=== PATIENT | male | born 1940 | race Caucasian/White ===

== ENCOUNTER 2020-07-06 05:41 | Outpatient (CLI) | payer MEDICARE ==
[~2020-07-06] VITALS: Ht 172.7 cm; Wt 100.0 kg
[2020-07-06] MEDS ORDERED: ATOR40TA70 PO (13:15)
[2020-07-06] MEDS ORDERED: LEVO125T6 PO (13:15)
[2020-07-06] MEDS ORDERED: DILT180C85 PO (13:15)
== END 2020-07-06 13:16 | disposition home or self-care (01) ==
LOC: PREOP 05:41
PROVIDERS: ATTEND Specialist
DX: Z01.818 Encounter for other preprocedural examination (principal)

== ENCOUNTER 2020-07-07 09:08 | Day surgery (SDC) | payer MEDICARE, OTHER ==
[~2020-07-07] VITALS: Ht 172.7 cm; Wt 100.0 kg
[~2020-07-07 09:08] MED LIST: ATOR40TA70 PO; DILT180C85 PO; LEVO125T6 PO
[2020-07-07] MEDS ORDERED: TIMOLOL MALEATE 0.5% 5 ML (TIMOPTIC) BTL OU PRN (09:15)
[2020-07-07] MEDS ORDERED: LIDOCAINE PF 1% 2 ML VIAL IR PRN (09:15)
[2020-07-07] MEDS ORDERED: POVIDONE (BETADINE) OPHTH SOLN 5% 30 ML OP ONE (09:15)
[2020-07-07] MEDS ORDERED: MOXIFLOXACIN OPHTH SOLN 5 MG/ML 0.3 ML SYRINGE OP ONE (09:15)
[2020-07-07] MEDS: TETRACAINE 0.5% OPHTH SOLN 4 ML BTL (SINGLE DOSE ONLY) OU PRN ×4 (09:29→09:47)
[2020-07-07] MEDS ORDERED: MIDAZOLAM 2 MG/2 ML (VERSED) VIAL ONE (09:32)
[2020-07-07] MEDS: CYCLOPENTOLATE 1% (CYCLOGYL) 2 ML DROPS OP SCH ×3 (09:37→09:47)
[2020-07-07] MEDS: PHENYLEPHRINE 10% OPHTH (NEO-SYN) 5 ML BTL OU SCH ×3 (09:37→09:47)
[2020-07-07 09:43] VITALS: BP 183/96
--- NOTE | 2020-07-07 10:24 | Ophthalmologist Pre-Op Note ---
Pre-Operative Progress Note H&P Reviewed The H&P was reviewed, patient examined and no changes noted. Date H&P Reviewed: Jul 07, 2020 Time H&P Reviewed: 09:51 Pre-Op Dx Cataract, Left Eye JOLIE SPAULDING MD Jul 07, 2020 10:24
--- NOTE | 2020-07-07 10:24 | Ophthalmology Operative Report ---
Cataract removal/placement IOL PREOPERATIVE DIAGNOSIS: Cataract Left Eye POSTOPERATIVE DIAGNOSIS: Cataract Left Eye PROCEDURE: Cataract removal and placement of posterior chamber implant, left eye SURGEON: Arnold Spaulding ANESTHESIA: Topical with sedation COMPLICATIONS: None ESTIMATED BLOOD LOSS: Minimal DESCRIPTION OF PROCEDURE: After proper informed consent was obtained, the patient, a 80 male, was taken to the Operating Room and the left eye was anesthetized with tetracaine. The left eye was then prepped and draped in the usual manner. A wire lid speculum was placed. A paracentesis was made at the left hand position. Preservative free lidocaine was injected into the anterior chamber followed by viscoelastic. A clear corneal incision was made in the temporal position. A capsulorrhexis was preformed and the central nuclear and cortical material were removed. The posterior capsule was polished and an Delfino 21.5 AU00T0 was placed into the capsular bag. The residual viscoelastic was aspirated and balanced saline solution was injected into the anterior chamber. Moxifloxacin was injected into the anterior chamber. The wound was checked and found to be water tight. The patient tolerated the procedure well without complications. ARNOLD SPAULDING MD Jul 07, 2020 10:24
[2020-07-07] MEDS ORDERED: acetaZOLAMIDE ER 500 MG CAP (DIAMOX SEQUELS) PO ONE (10:30)
[2020-07-07 10:39] VITALS: BP 164/86
--- NOTE | 2020-07-07 11:20 | Anesthesia-General Post-Op ---
MAC Patient Condition Mental Status/LOC: Same as Preop Cardiovascular: Satisfactory Nausea/Vomiting: Absent Respiratory: Satisfactory Pain: Controlled Complications: Absent Post Op Complications Complications None Follow Up Care/Instructions Patient Instructions None needed. Anesthesiology Discharge Order Discharge Order Patient is doing well, no complaints, stable vital signs, no apparent adverse anesthesia problems. No complications reported per nursing. CHRISTIN KHAN DOWELING MACHINE OPERATOR Jul 07, 2020 11:20
== END 2020-07-07 10:35 | disposition home or self-care (01) ==
LOC: SDC 09:08
PROVIDERS: ATTEND Specialist
DX: H25.12 Age-related nuclear cataract, left eye (principal); I10 Essential (primary) hypertension; E78.00 Pure hypercholesterolemia, unspecified; E78.5 Hyperlipidemia, unspecified; J44.9 Chronic obstructive pulmonary disease, unspecified; G47.33 Obstructive sleep apnea (adult) (pediatric); Z87.891 Personal history of nicotine dependence; Z88.0 Allergy status to penicillin; Z79.890 Hormone replacement therapy; Z79.899 Other long term (current) drug therapy
CPT/HCPCS: 66984; V2632

== ENCOUNTER 2020-08-01 05:35 | Outpatient (RCR) | payer MEDICARE, OTHER | END 2020-08-01 10:19 | disposition home or self-care (01) | LOC: PREOP 05:35 | PROVIDERS: ATTEND Specialist | DX: Z01.812 Encounter for preprocedural laboratory examination (principal); Z20.828 Contact with and (suspected) exposure to other viral communicable diseases | CPT/HCPCS: 87635 ==

== ENCOUNTER 2020-08-04 06:35 | Day surgery (SDC) | payer MEDICARE, OTHER ==
[~2020-08-04] VITALS: Ht 172.7 cm; Wt 99.9 kg
[2020-08-04 06:05] VITALS: BP 175/102
[2020-08-04] MEDS ORDERED: MIDAZOLAM 2 MG/2 ML (VERSED) VIAL ONE (06:56)
[2020-08-04] MEDS ORDERED: POVIDONE (BETADINE) OPHTH SOLN 5% 30 ML OP ONE (07:00)
[2020-08-04] MEDS ORDERED: TIMOLOL MALEATE 0.5% 5 ML (TIMOPTIC) BTL OU PRN (07:00)
[2020-08-04] MEDS ORDERED: LIDOCAINE PF 1% 2 ML VIAL IR PRN (07:00)
[2020-08-04] MEDS ORDERED: MOXIFLOXACIN OPHTH SOLN 5 MG/ML 0.3 ML SYRINGE OP ONE (07:00)
[2020-08-04] MEDS: TETRACAINE 0.5% OPHTH SOLN 4 ML BTL (SINGLE DOSE ONLY) OU PRN ×4 (07:03→07:33)
[2020-08-04] MEDS: TROPICAMIDE 1% OPH SOLN (MYDRIACYL) 15 ML BTL OP SCH ×3 (07:14→07:33)
[2020-08-04] MEDS: PHENYLEPHRINE 10% OPHTH (NEO-SYN) 5 ML BTL OU SCH ×3 (07:14→07:33)
--- NOTE | 2020-08-04 07:48 | Ophthalmologist Pre-Op Note ---
Pre-Operative Progress Note H&P Reviewed The H&P was reviewed, patient examined and no changes noted. Date H&P Reviewed: Aug 04, 2020 Time H&P Reviewed: 07:48 Pre-Op Dx Cataract, Right Eye JOLIE SPAULDING MD Aug 04, 2020 07:48
[2020-08-04] MEDS ORDERED: acetaZOLAMIDE ER 500 MG CAP (DIAMOX SEQUELS) PO ONE (08:00)
--- NOTE | 2020-08-04 08:14 | Ophthalmology Operative Report ---
Cataract removal/placement IOL PREOPERATIVE DIAGNOSIS: Cataract Right Eye POSTOPERATIVE DIAGNOSIS: Cataract Right Eye PROCEDURE: Cataract removal and placement of posterior chamber implant, right eye SURGEON: Arnold Spaulding ANESTHESIA: Topical with sedation COMPLICATIONS: None ESTIMATED BLOOD LOSS: Minimal DESCRIPTION OF PROCEDURE: After proper informed consent was obtained, the patient, a 80 male, was taken to the Operating Room and the right eye was anesthetized with tetracaine. The right eye was then prepped and draped in the usual manner. A wire lid speculum was placed. A paracentesis was made at the left hand position. Preservative free lidocaine was injected into the anterior chamber followed by viscoelastic. A clear corneal incision was made in the temporal position. A capsulorrhexis was preformed and the central nuclear and cortical material were removed. The posterior capsule was polished and Delfino 21.5 AU00T0 IOL was placed into the capsular bag. The residual viscoelastic was aspirated and balanced saline solution was injected into the anterior chamber. Moxifloxacin was injected into the anterior chamber. The wound was checked and found to be water tight. The patient tolerated the procedure well without complications. ARNOLD SPAULDING MD Aug 04, 2020 08:14
[2020-08-04 08:20] VITALS: BP 158/78
--- NOTE | 2020-08-04 09:10 | Anesthesia-General Post-Op ---
MAC Patient Condition Mental Status/LOC: Same as Preop Cardiovascular: Satisfactory Nausea/Vomiting: Absent Respiratory: Satisfactory Pain: Controlled Complications: Absent Post Op Complications Complications None Follow Up Care/Instructions Patient Instructions None needed. Anesthesiology Discharge Order Discharge Order Patient is doing well, no complaints, stable vital signs, no apparent adverse anesthesia problems. No complications reported per nursing. OLE MURRAY CRNA Aug 04, 2020 09:10
== END 2020-08-04 08:20 | disposition home or self-care (01) ==
LOC: SDC 06:35
PROVIDERS: ATTEND Specialist
DX: H25.11 Age-related nuclear cataract, right eye (principal); E78.00 Pure hypercholesterolemia, unspecified; Z79.899 Other long term (current) drug therapy; Z88.0 Allergy status to penicillin; Z87.891 Personal history of nicotine dependence
CPT/HCPCS: 66984; V2632

== ENCOUNTER 2021-10-05 20:43 | Inpatient (IN) | payer MEDICARE, OTHER ==
[~2021-10-05] VITALS: Ht 172 cm; Wt 93.5 kg
[2021-10-05] MEDS ORDERED: LACTATED RINGERS 1,000 ML IV ONE (22:09)
[2021-10-05] MEDS ORDERED: CEFEPIME INJECTION 1,000 MG in NS (IVPB) 50 ML IV SCH (22:15)
[2021-10-05] MEDS ORDERED: polyethylene glycoL POWDER 17 GM (MIRALAX) PACK PO PRN (22:15)
[2021-10-05] MEDS ORDERED: ONDANSETRON 4 MG (ZOFRAN) ORAL DISSOLVE TAB PO PRN (22:15)
[2021-10-05] MEDS ORDERED: ANTACID SUSP 30 ML UDC (MYLANTA) PO PRN (22:15)
[2021-10-05] MEDS ORDERED: PHARMACY TO DOSE IV ONE (22:15)
[2021-10-05] MEDS ORDERED: ONDANSETRON 4 MG/2 ML (SDV) Z0FRAN IV PRN (22:15)
[2021-10-05] MEDS ORDERED: ACETAMINOPHEN 325 MG TABLET PO PRN (22:15)
[2021-10-05] MEDS ORDERED: MELATONIN 3 MG TABLET PO PRN (22:15)
[2021-10-05] MEDS: LACTATED RINGERS 1,000 ML IV SCH (22:21)
[2021-10-05] MEDS ORDERED: VANCOMYCIN INJECTION 1,500 MG in NS IV 500 ML 500 ML IV ONE (22:30)
[2021-10-05] MEDS ORDERED: VANCOMYCIN 750 MG/NS 250 ML IVPB IV ONE ×2 (23:00)
[2021-10-05] MEDS: ENOXAPARIN 40 MG/0.4 ML (LOVENOX) SYR SC SCH (23:16)
[2021-10-05 23:36] LABS: POTASSIUM 4.5 MMOL/L (3.6-5.0)
[2021-10-05 23:37] LABS: CALCIUM 8.1 MG/DL (8.5-10.1)
[2021-10-05 23:41] LABS: PHOSPHORUS 4.8 MG/DL (2.3-4.7)
[2021-10-05 23:42] LABS: CREATININE SERUM 2.11 MG/DL (0.60-1.30)
[2021-10-05 23:44] LABS: MAGNESIUM 1.8 MG/DL (1.6-2.4)
[2021-10-05] MEDS ORDERED: NS IV 1000 ML 1,000 ML IV SCH (23:45)
--- NOTE | 2021-10-06 00:09 | Tele-ICU Progress Note ---
Progress Note Tele ICU Note eICU 81 yo man transferred from outside hospital for admission to hospitalist service with diagnosis of sepsis per nursing-when seen in their ED O2 sat was 80% by RA and hx shortness of breath 2 days. By report, pt was cultured at outside hospital, received 2 liters NS and was started on cefepime and vancomycin for presumed pneumonia. COVID rapid was negative and COVID PCR is currently pending. WBCs were elevated at 19,190 Lactic acid was reported at 81 and myoglobin, CPK were +. There was a report of possible fall- unclear if there was a seizure as the HCO3 on admit was 12. There is no CXR report included in the documentation. HX of COPD on inhalers and Prednisone 5 mg daily per the records he has not ta rickey for a few days. hypothyroidism and HTN Pt is observed in bed with O2 vapotherm 65% FiO2, no respiratory distress. VS T 37.3 HR 101 sinus RR 24 sats 96% BP 127/63 I have elected to order stat labs for pt to include CBC, BMP, Trop, BNP, Lactic , Procal, DDIMER, CRP, ESR, and repeat BCs , UA/reflex culture, CK, Myoglobin. Service is continuing vanco, cefepime. DVT prophylaxis: Lovenox . He is on a diet per service. Will monitor, discussed with nursing. Addendum- LA was returned at 4.38 Na 134 K 4.5 Cl 104 Bicarb 13 BUN 47 Creat 2.11 Mg 1.8 Phos 4.8 trop -.128 and Procal markedly elevated at 74.19 As there is no CXR report- will check CXR now- give additional 1 liter NS bolus- add ketones, cortisol level, to labs, add Solucortef, Add GIB Prophylaxis with protonix. Focused Exam Lactate Level 10/05/21 22:35: Lactic Acid Level 4.38*H Height, Weight, BMI Height: '" Weight: lbs. oz. kg; 31.26 BMI Method: Lactic Acid Level Laboratory Tests Test 10/05/21 22:35 Lactic Acid Level 4.38 MMOL/L (0.50-2.00) *H GERDA ROACH DO Oct 06, 2021 00:09
[2021-10-06] MEDS ORDERED: MAGNESIUM 1 GM/100 ML IVPB 100 ML IV ONE (00:30)
[2021-10-06 00:51] LABS: BASOPHILS # (AUTO) 0.1 10^3/uL (0.0-0.1); BASOPHILS % (AUTO) 0 % (0-10); EOSINOPHILS # (AUTO) 0.1 10^3/uL (0.0-0.3); EOSINOPHILS % (AUTO) 0 % (0-10); HEMATOCRIT 29 % (40-54); HEMOGLOBIN 9.1 g/dL (13.3-17.7); LYMPHOCYTES # (AUTO) 0.3 10^3/uL (1.0-4.0); LYMPHOCYTES % (AUTO) 2 % (12-44); MEAN CORPUSCULAR HEMOGLOBIN 28 pg (25-34); MEAN CORPUSCULAR HGB CONC 31 g/dL (32-36); MEAN CORPUSCULAR VOLUME 90 fL (80-99); MEAN PLATELET VOLUME 10.8 fL (9.0-12.2); MONOCYTES # (AUTO) 0.2 10^3/uL (0.0-1.0); MONOCYTES % (AUTO) 1 % (0-12); NEUTROPHILS # (AUTO) 15.6 10^3/uL (1.8-7.8); NEUTROPHILS % (AUTO) 95 % (42-75); PLATELET COUNT 273 10^3/uL (130-400); WHITE BLOOD COUNT 16.4 10^3/uL (4.3-11.0)
[2021-10-06] MEDS: PANTOPRAZOLE 40 MG (PROTONIX) VIAL IV SCH ×2 (01:09→20:15)
[2021-10-06] MEDS: CEFEPIME INJECTION 1,000 MG in NS (IVPB) 50 ML IV SCH ×4 (01:10→18:05)
[2021-10-06] MEDS: HYDROCORTISONE 100 MG/2 ML (Solu-CORTEF) VIAL IV SCH ×3 (01:10→20:15)
[2021-10-06 01:18] VITALS: BP 123/63
[2021-10-06] MEDS ORDERED: RT-ALBUTEROL/IPRATROPIUM 3 ML (DUONEB) VIAL INH PRN (01:30)
[2021-10-06 01:51] LABS: BAND NEUTROPHILS 31 %; LYMPHOCYTES % (MANUAL) 4 %; METAMYELOCYTES % 3 %; MONOCYTES % (MANUAL) 1 %; NEUTROPHILS % (MANUAL) 61 %; POIKILOCYTOSIS SLIGHT
[2021-10-06 01:52] LABS: ANISOCYTOSIS SLIGHT; SPHEROCYTES SLIGHT
[2021-10-06] MEDS: RT-ALBUTEROL/IPRATROPIUM 3 ML (DUONEB) VIAL INH SCH ×6 (02:05→21:17)
[2021-10-06 05:11] LABS: ALBUMIN 2.6 GM/DL (3.2-4.5); POTASSIUM 4.1 MMOL/L (3.6-5.0)
[2021-10-06 05:12] LABS: CALCIUM 7.7 MG/DL (8.5-10.1)
[2021-10-06 05:14] LABS: TOTAL PROTEIN 5.1 GM/DL (6.4-8.2)
[2021-10-06 05:15] LABS: BILIRUBIN,TOTAL 0.7 MG/DL (0.1-1.0)
[2021-10-06 05:17] LABS: CREATININE SERUM 1.92 MG/DL (0.60-1.30); PHOSPHORUS 5.2 MG/DL (2.3-4.7)
[2021-10-06 05:20] LABS: MAGNESIUM 2.1 MG/DL (1.6-2.4)
[2021-10-06] MEDS: KCL 20 MEQ TAB (K-DUR) PO SCH (05:20)
[2021-10-06] MEDS: MAGNESIUM 1 GM/100 ML IVPB 100 ML IV SCH (05:20)
[2021-10-06] MEDS: POTASSIUM CL 10MEQ/50ML IVPB 50 ML IV SCH (05:20)
[2021-10-06] MEDS: inSUlin ASPART (NovoLOG) 1 UNIT/0.01 ML (CHARGE PER UNIT) SC SCH ×4 (05:20→20:19)
--- NOTE | 2021-10-06 05:35 | Diagnostic Imaging Report ---
HISTORY: Hypoxia TECHNIQUE: Frontal view of the chest COMPARISON: 10/05/2021 FINDINGS: There are extensive airspace opacities throughout the right lung. Mild airspace opacity is seen in the left lung base. There is no large effusion or pneumothorax. The cardiac silhouette is normal in size. There is aortic atherosclerosis. IMPRESSION: 1. Extensive airspace opacities throughout the right lung and mild opacities in the left lung base, concerning for infection. Overall aeration appears similar to the prior study. Dictated by: Dictated on workstation # [id number]
[2021-10-06 05:42] LABS: BASOPHILS # (AUTO) 0.1 10^3/uL (0.0-0.1); BASOPHILS % (AUTO) 1 % (0-10); EOSINOPHILS # (AUTO) 0.1 10^3/uL (0.0-0.3); EOSINOPHILS % (AUTO) 0 % (0-10); HEMATOCRIT 27 % (40-54); HEMOGLOBIN 8.5 g/dL (13.3-17.7); LYMPHOCYTES # (AUTO) 0.3 10^3/uL (1.0-4.0); LYMPHOCYTES % (AUTO) 2 % (12-44); MEAN CORPUSCULAR HEMOGLOBIN 29 pg (25-34); MEAN CORPUSCULAR HGB CONC 31 g/dL (32-36); MEAN CORPUSCULAR VOLUME 91 fL (80-99); MEAN PLATELET VOLUME 10.9 fL (9.0-12.2); MONOCYTES # (AUTO) 0.3 10^3/uL (0.0-1.0); MONOCYTES % (AUTO) 2 % (0-12); NEUTROPHILS # (AUTO) 15.7 10^3/uL (1.8-7.8); NEUTROPHILS % (AUTO) 94 % (42-75); PLATELET COUNT 257 10^3/uL (130-400); WHITE BLOOD COUNT 16.7 10^3/uL (4.3-11.0)
[2021-10-06] MEDS: LACTATED RINGERS 1,000 ML IV SCH ×4 (06:40→18:05)
[2021-10-06 06:49] LABS: BILIRUBIN,URINE NEGATIVE (NEGATIVE); CLARITY,URINE CLEAR; COLOR,URINE YELLOW; GLUCOSE, URINE (UA) NEGATIVE (NEGATIVE); KETONES,URINE NEGATIVE (NEGATIVE); LEUKOCYTE ESTERASE ,URINE NEGATIVE (NEGATIVE); NITRITE,URINE NEGATIVE (NEGATIVE); PROTEIN,URINE TRACE (NEGATIVE)
[2021-10-06 06:59] LABS: BACTERIA,URINE FEW /HPF; GRANULAR CASTS,URINE 0-2 /LPF; WBC,URINE 0-2 /HPF
[2021-10-06] MEDS ORDERED: ASPI-999 PO (08:05)
[2021-10-06] MEDS: SENNOSIDES 8.6 MG (SENOKOT) TAB PO SCH ×2 (08:13→20:15)
[2021-10-06] MEDS: DOCUSATE SODIUM 100 MG (COLACE) CAP PO SCH ×2 (08:13→20:15)
--- NOTE | 2021-10-06 10:41 | Diagnostic Imaging Report ---
EXAM: Portable erect AP chest at 9:47 AM INDICATION: Respiratory distress FINDINGS: The heart is stable in size when compared to the prior exam performed earlier today at 1:09 AM. The extensive airspace opacity throughout the right lung seen previously is again evident and not significantly changed. A small amount of atelectasis / infiltrate and fluid has developed in the left lung base however. The mediastinum is not widened. The osseous structures are intact. IMPRESSION: The appearance of the chest has worsened slightly as the small amount of atelectasis/infiltrate and fluid has developed in the left lung base. There continues to be diffuse involvement of the right lung by pneumonia/atelectasis. Dictated by: Dictated on workstation # [id number]
[2021-10-06] MEDS: NOREPINEPHRINE 8 MG/250 ML 250 ML IV SCH (11:09)
[2021-10-06 12:09] LABS: CHOLESTEROL 91 MG/DL (< 200); HDL CHOLESTEROL 39 MG/DL (40-60); TRIGLYCERIDES 93 MG/DL (<150); VLDL CHOLESTEROL 19 MG/DL (5-40)
--- NOTE | 2021-10-06 12:17 | Tele-ICU Progress Note ---
Subjective Date Seen by a Provider: Oct 06, 2021 Time Seen by a Provider: 12:17 Subjective/Events-last exam He is admitted with septic shock actually he is a transferred from an outside hospital. He was given several liters of IV fluid bolus and he is lactic acid is coming down. He is still tachycardic but his oxygen requirements are decreasing. He is currently on a nasal cannula. However he is in no acute distress. Sepsis Event Evaluation Height, Weight, BMI Height: '" Weight: lbs. oz. kg; 31.26 BMI Method: Focused Exam Lactate Level 10/05/21 22:35: Lactic Acid Level 4.38*H 10/06/21 02:10: Lactic Acid Level 2.58*H 10/06/21 04:45: Lactic Acid Level 2.03*H Exam Exam Patient acknowledged, consented, and participated in this virtual visit which was conducted using real time audio/video Vital Signs Date Time Temp Pulse Resp B/P (MAP) Pulse Ox O2 Delivery O2 Flow Rate FiO2 10/06/21 11:09 126 84/56 10/06/21 11:00 118 22 82/42 97 Vapotherm 30.00 75.00 10/06/21 10:30 Vapotherm 25.00 60 10/06/21 10:00 111 27 57/41 100 Vapotherm 30.00 75.00 10/06/21 09:00 126 21 89/30 95 Vapotherm 30.00 75.00 10/06/21 08:48 Vapotherm 30.00 75 10/06/21 08:00 37.1 10/06/21 08:00 114 25 137/113 95 Vapotherm 30.00 75.00 10/06/21 07:59 Vapotherm 30.00 75.00 10/06/21 07:29 Vapotherm 30.00 75 10/06/21 07:00 108 10/06/21 07:00 108 22 121/39 98 Vapotherm 32.00 65.00 10/06/21 06:00 102 21 110/57 96 Vapotherm 32.00 65.00 10/06/21 05:00 97 21 108/61 97 Vapotherm 32.00 65.00 10/06/21 04:00 98 23 102/55 96 Vapotherm 32.00 65.00 10/06/21 04:00 Vapotherm 30.00 60 10/06/21 03:00 93 20 115/68 96 Vapotherm 32.00 65.00 10/06/21 02:05 97 Vapotherm 32.00 65 10/06/21 02:00 98 22 106/58 96 Vapotherm 32.00 65.00 10/06/21 01:18 106 80 21 10/06/21 01:00 101 23 115/64 97 Vapotherm 32.00 65.00 10/06/21 01:00 101 10/06/21 00:00 100 23 94/82 96 Vapotherm 32.00 65.00 10/05/21 23:30 104 26 109/54 96 Vapotherm 32.00 65.00 10/05/21 23:29 Vapotherm 32.00 65 10/05/21 23:00 101 26 117/63 96 Vapotherm 32.00 65.00 10/05/21 22:57 94 Vapotherm 32.00 65 10/05/21 22:45 101 22 117/55 98 Vapotherm 32.00 65.00 10/05/21 22:30 108 29 113/63 97 Vapotherm 32.00 65.00 10/05/21 22:10 37.3 106 30 127/63 95 Vapotherm 32.00 65.00 10/05/21 22:08 107 I & O 10/06/21 07:00 Intake Total 300 ml Output Total 600 ml Balance -300 ml Height & Weight Height: '" Weight: lbs. oz. kg; 31.26 BMI Method: General Appearance: Mild Distress Other comments PE PER RN Results Lab Laboratory Tests 10/05/21 22:35 10/05/21 23:50 10/06/21 04:45 Assessment/Plan Assessment/Plan 1. Right-sided extensive pneumonia community-acquired. 2. Septic shock slowly improving 3. Anemia probably chronic 4. Acute kidney injury secondary to septic shock Recommendations 1. Continue IV fluids and IV antibiotics. 2. Continue monitoring lactic acid. 3. Oxygenation with nasal cannula 4. We will repeat another x-ray tomorrow. 5. DVT prophylaxis and ulcer prophylaxis. Critical Care: Critically Ill Patient Time spent with patient (mins): 20 ROBERTA ANGELA MD Oct 06, 2021 12:17
[2021-10-06] MEDS ORDERED: HOLD METFORMIN - RECEIVED CONTRAST 20 ML VIAL IV SCH (13:15)
[2021-10-06] MEDS ORDERED: IOHEXOL 350 MG/ML 100 ML (OMNIPAQUE 350) VIAL IV ONE (13:15)
[2021-10-06] MEDS ORDERED: NS 100 ML (IVPB) BAG IV ONE (13:15)
--- NOTE | 2021-10-06 14:20 | Diagnostic Imaging Report ---
PROCEDURE: CT angiography of the chest with contrast. TECHNIQUE: Multiple contiguous axial images were obtained through the chest after uneventful bolus administration of intravenous contrast. 3D reconstructed CTA MIP acquisitions were also performed. Auto Exposure Controls were utilized during the CT exam to meet ALARA standards for radiation dose reduction. INDICATION: Respiratory failure. Elevated D-dimer. Septic shock. COMPARISON: Chest radiograph performed earlier this same date. FINDINGS: This helical CT pulmonary angiogram is diagnostic to the subsegmental level branches of the pulmonary artery and demonstrates no pulmonary emboli. The heart and great vessels are unremarkable. There is a small pericardial effusion. There is calcified aortic and coronary atherosclerotic plaque without aneurysm. There is no axillary, mediastinal, or hilar adenopathy. Small right and trace left pleural effusion are seen. Consolidative opacities are seen throughout the right middle and lower lobes and within the dependent portion of the right upper lobe. A small amount of opacities are seen in the left lung base. Centrilobular emphysema is present. No central endobronchial obstructing lesions. No evidence of pneumothorax. Osseous structures appear normal. There is calcification of the gallbladder wall. IMPRESSION: 1. No acute pulmonary embolus. 2. Consolidative opacities throughout the right middle and lower lobes with additional opacities in the dependent portion of the right upper lobe. These findings are concerning for pneumonia. Small right and trace left pleural effusions are present. 3. Porcelain gallbladder. Dictated by: Dictated on workstation # [id number]
--- NOTE | 2021-10-06 14:36 | History & Physical-Hospitalist ---
History of Present Illness HPI/Chief Complaint Bharat Webber is an 81 year old male with PMH HTN, HLD, hypothyroidism, obesity, who was transferred from [facility] with septic shock due to pneumonia. He reports having fevers and chills. He was short of breath and coughing. He denies chest pain. He denies abdominal pain. He denies nausea and vomiting. He has not had diarrhea. He denies dysuria. Source: patient Exam Limitations: no limitations Date Seen 10/06/21 Time Seen by a Provider: 10:50 Attending Physician Kiel Escobar MD PCP Molly Flores MD Referring Physician Date of Admission Oct 05, 2021 at 22:00 Home Medications & Allergies Home Medications Reviewed patient Home Medication Reconciliation performed by pharmacy medication reconciliations photonics engineering technician and/or nursing. Patients Allergies have been reviewed. Allergies Allergies Coded Allergies Penicillins (Unverified Allergy, Mild, RASH, 12/23/06) Past [id number] Hx Patient Social History Tobacco Use?: No Tobacco type used: Cigarettes Smoking Status: Former Smoker Use of E-Cig and/or Vaping dev: No Substance use?: No Alcohol Use?: No Current Status Primary Language: Afghan Sensory deficits: Hearing impairment Past Medical History High Cholesterol, Hypertension Hypothyroidsim Family Medical History No Pertinent Family Hx Review of Systems Constitutional: chills, fever, malaise, weakness EENTM: no symptoms reported Respiratory: cough, short of breath Cardiovascular: no symptoms reported Gastrointestinal: no symptoms reported Genitourinary: no symptoms reported Musculoskeletal: no symptoms reported Skin: no symptoms reported Psychiatric/Neurological: No Symptoms Reported Physical Exam Physical Exam Vital Signs Vital Signs - First Documented 10/05/21 10/05/21 10/05/21 22:08 22:10 22:57 Temp 37.3 Pulse 107 Resp 30 B/P (MAP) 127/63 Pulse Ox 95 O2 Delivery Vapotherm O2 Flow Rate 32.00 65.00 FiO2 65 Capillary Refill : Height, Weight, BMI Height: '" Weight: lbs. oz. kg; 31.26 BMI Method: General Appearance: Chronically ill, Mild Distress (uncomfortable, fatigued), Obese HEENT: PERRL/EOMI, Other (dry mucous membranes) Neck: Normal Inspection, Supple Respiratory: Decreased Breath Sounds, Wheezing, Other (wearing Vapotherm) Cardiovascular: No Murmur, Irregularly Irregular, Tachycardia Gastrointestinal: Normal Bowel Sounds, Non Tender, Soft Extremity: Normal Inspection, No Pedal Edema Neurologic/Psychiatric: Alert, No Motor/Sensory Deficits Skin: Normal Color, Warm/Dry Results Results/Procedures Labs Laboratory Tests 10/05/21 22:35 10/05/21 23:50 10/06/21 04:45 10/07/21 04:00 Patient resulted labs reviewed. Imaging: Reviewed Imaging Report Assessment/Plan Admission Diagnosis Septic shock Admission Status: Inpatient Order (span 2 midnights) Reason for Inpatient Admission: Pneumonia Assessment and Plan Septic shock Multifocal pneumonia Acute respiratory failure with hypoxia Lactic acidosis Acute kidney injury NSTEMI CXR with significant right consolidation, left basilar consolidation Requiring Vapotherm Lactic acid >8, now improved IV fluids Procalcitonin significant elevated Blood cultures from [facility] pending Vancomycin and Cefepime TeleICU consulted Troponin slightly elevated Cardiology consulted Requiring pressor support Surgery consulted Ddimer elevated CT Chest ordered HTN HLD Hypothryoidism DVT prophylaxis: Lovenox Critical Care Critically Ill Patient Diagnosis/Problems Diagnosis/Problems (1) Septic shock Status: Acute (2) Pneumonia Status: Acute (3) Acute on chronic respiratory failure with hypoxemia Status: Acute (4) Lactic acidosis Status: Acute (5) Acute kidney injury Status: Acute (6) NSTEMI (non-ST elevation myocardial infarction) Status: Acute (7) Primary hypertension Status: Chronic (8) Mixed hyperlipidemia Status: Chronic (9) Obesity Status: Chronic KIEL ESCOBAR MD Oct 06, 2021 14:36
--- NOTE | 2021-10-06 14:45 | Consultation-Cardiology ---
HPI-Cardiology Cardiology Consultation: Date of Consultation 10/06/2021 Date of Admission 10/06/2021 Attending Physician Lesly Mckinley MD Admitting Physician Molly Flores MD Consulting Physician SHERRI CHO JR, MD HPI: Time Seen by a Provider: 14:43 Chief Complaint: Reason for consultation: Persistent tachycardia. I had the pleasure of seeing Bharat in the intensive care unit at [facility] in [place], [place] this afternoon. He has no known history of cardiac disease. He has chronic dyspnea related to underlying chronic obstructive pulmonary disease. He also has cardiac risk factors of hypertension and hyperlipidemia. A few days ago he started having worsening dyspnea on exertion. He was also having a cough occasionally productive of some light sputum. His breathing became much worse yesterday and he went to [facility] for further evaluation. He was found to have pneumonia with superimposed sepsis and he was transferred to our hospital for further treatment. He still feels fairly short of breath but somewhat improved. He denies chest discomfort, paroxysmal nocturnal dyspnea, orthopnea, palpitations, lightheadedness, syncope, or lower extremity edema. Since being here in the hospital, he has had persistent sinus tachycardia. Because of this, a cardiology consultation was requested. Certain portions of this document may have been dictated utilizing voice recognition technology. Inherent to this technology, typographical and grammatical errors may exist. As much as I am diligent to identify and correct these mistakes, some errors may remain in the document. Review of Systems-Cardiology Review of Systems Other comments Review of 10 organ systems is as per the history of present illness, otherwise negative. [id number] Hx Patient Social History Smoking Status: Former Smoker Alcohol Use?: No Tobacco type used: Cigarettes Past Medical History PMH As described under Assessment. Family Medical History Family Medical History: The patient does not know of any family history of premature coronary artery disease in first-degree relatives. Allergies and Home Medications Allergies Coded Allergies: Penicillins (Unverified Allergy, Mild, RASH, 12/23/06) Patient Home Medication List Home Medication List Reviewed: Yes Aspirin (Aspirin) 81 Mg Tab.chew, 81 MG PO DAILY, (Reported) Entered as Reported by: JOSAFAT HUNTER on 10/06/21 0805 Last Action: Reviewed Atorvastatin Calcium (Atorvastatin Calcium) 40 Mg Tablet, 40 MG PO HS, (Reported) Entered as Reported by: AMMON KING on 07/06/201314 Last Action: Reviewed Diltiazem HCl (Diltiazem 24Hr ER) 180 Mg Cap.er.24h, 180 MG PO DAILY, (Reported) Entered as Reported by: AMMON KING on 07/06/201314 Last Action: Reviewed Levothyroxine Sodium (Levothyroxine Sodium) 125 Mcg Tablet, 125 MCG PO DAILY, (Reported) Entered as Reported by: AMMON KING on 07/06/201314 Last Action: Reviewed Exam Vital Signs Vital Signs Date Time Temp Pulse Resp B/P (MAP) Pulse Ox O2 Delivery O2 Flow Rate FiO2 10/06/21 14:38 Vapotherm 30.00 70 10/06/21 14:00 135 31 137/81 95 10/06/21 12:00 36.9 Physical Exam General: Alert. Mild respiratory distress on oxygen by Vapotherm. Well nourished and appears stated age. Eye: Extraocular movements are intact. Conjunctivae are clear. There are no xanthelasma. HENT: Normocephalic. Atraumatic. Carotid pulsations 2/2 without bruits. Neck: Jugular venous pressure does not appear elevated. No thyromegaly appreciated. Respiratory: Lungs have diffusely decreased breath sounds with scattered wheezes. Respirations are non-labored. Breath sounds are equal. Symmetrical chest wall expansion. Cardiovascular: Tachycardia. Regular rhythm. No murmur. No gallop. Point of maximal impulse is not appear displaced. Good pulses equal in all extremities. No edema. Gastrointestinal: Soft. Normal bowel sounds. Skin: Skin turgor is normal. There is no pallor. Musculoskeletal: No kyphosis or scoliosis appreciated. Neurologic: Alert and oriented to person, place, time. Cranial nerves 3-12 appear grossly intact. The patient has good motor tone strength in the upper and lower extremities bilaterally. Psychiatric: Cooperative. Appropriate mood & affect. Labs Laboratory Tests Test 10/05/21 22:35 10/05/21 23:50 10/05/21 23:55 10/06/21 02:10 Range/Units Sodium Level 134 L 135-145 MMOL/L Potassium Level 4.5 3.6-5.0 MMOL/L Chloride Level 104 98-107 MMOL/L Carbon Dioxide Level 13 L 21-32 MMOL/L Anion Gap 17 H 5-14 MMOL/L Blood Urea Nitrogen 47 H 7-18 MG/DL Creatinine 2.11 H 0.60-1.30 MG/DL Estimat Glomerular Filtration Rate 30 BUN/Creatinine Ratio 22 Glucose Level 75 70-105 MG/DL Lactic Acid Level 4.38 *H 2.58 *H 0.50-2.00 MMOL/L Calcium Level 8.1 L 8.5-10.1 MG/DL Phosphorus Level 4.8 H 2.3-4.7 MG/DL Magnesium Level 1.8 1.6-2.4 MG/DL Troponin I 0.126 H <0.028 NG/ML C-Reactive Protein High Sensitivity 36.58 H 0.00-0.50 MG/DL Procalcitonin 74.19 H <0.10 NG/ML SARS-CoV-2 RNA (RT-PCR) Not Detected Not Detecte White Blood Count 16.4 H 4.3-11.0 10^3/uL Red Blood Count 3.24 L 4.30-5.52 10^6/uL Hemoglobin 9.1 L 13.3-17.7 g/dL Hematocrit 29 L 40-54 % Mean Corpuscular Volume 90 80-99 fL Mean Corpuscular Hemoglobin 28 25-34 pg Mean Corpuscular Hemoglobin Concent 31 L 32-36 g/dL Red Cell Distribution Width 15.1 H 10.0-14.5 % Platelet Count 273 130-400 10^3/uL Mean Platelet Volume 10.8 9.0-12.2 fL Immature Granulocyte % (Auto) 1 % Neutrophils (%) (Auto) 95 H 42-75 % Lymphocytes (%) (Auto) 2 L 12-44 % Monocytes (%) (Auto) 1 0-12 % Eosinophils (%) (Auto) 0 0-10 % Basophils (%) (Auto) 0 0-10 % Neutrophils # (Auto) 15.6 H 1.8-7.8 10^3/uL Lymphocytes # (Auto) 0.3 L 1.0-4.0 10^3/uL Monocytes # (Auto) 0.2 0.0-1.0 10^3/uL Eosinophils # (Auto) 0.1 0.0-0.3 10^3/uL Basophils # (Auto) 0.1 0.0-0.1 10^3/uL Immature Granulocyte # (Auto) 0.2 H 0.0-0.1 10^3/uL Neutrophils % (Manual) 61 % Lymphocytes % (Manual) 4 % Monocytes % (Manual) 1 % Metamyelocytes % 3 % Band Neutrophils 31 % Poikilocytosis SLIGHT Anisocytosis SLIGHT Spherocytes SLIGHT Beta-Hydroxybutyrate (Chem panel) 0.41 H 0.00-0.27 MMOL/L Erythrocyte Sedimentation Rate 30 0-30 MM/HR D-Dimer 1.87 H 0.00-0.49 UG/ML B-Type Natriuretic Peptide 258.1 H <100.0 PG/ML Test 10/06/21 04:45 10/06/21 06:35 10/06/21 10:45 Range/Units White Blood Count 16.7 H 4.3-11.0 10^3/uL Red Blood Count 2.98 L 4.30-5.52 10^6/uL Hemoglobin 8.5 L 13.3-17.7 g/dL Hematocrit 27 L 40-54 % Mean Corpuscular Volume 91 80-99 fL Mean Corpuscular Hemoglobin 29 25-34 pg Mean Corpuscular Hemoglobin Concent 31 L 32-36 g/dL Red Cell Distribution Width 15.1 H 10.0-14.5 % Platelet Count 257 130-400 10^3/uL Mean Platelet Volume 10.9 9.0-12.2 fL Immature Granulocyte % (Auto) 2 % Neutrophils (%) (Auto) 94 H 42-75 % Lymphocytes (%) (Auto) 2 L 12-44 % Monocytes (%) (Auto) 2 0-12 % Eosinophils (%) (Auto) 0 0-10 % Basophils (%) (Auto) 1 0-10 % Neutrophils # (Auto) 15.7 H 1.8-7.8 10^3/uL Lymphocytes # (Auto) 0.3 L 1.0-4.0 10^3/uL Monocytes # (Auto) 0.3 0.0-1.0 10^3/uL Eosinophils # (Auto) 0.1 0.0-0.3 10^3/uL Basophils # (Auto) 0.1 0.0-0.1 10^3/uL Immature Granulocyte # (Auto) 0.3 H 0.0-0.1 10^3/uL Sodium Level 132 L 135-145 MMOL/L Potassium Level 4.1 3.6-5.0 MMOL/L Chloride Level 103 98-107 MMOL/L Carbon Dioxide Level 17 L 21-32 MMOL/L Anion Gap 12 5-14 MMOL/L Blood Urea Nitrogen 49 H 7-18 MG/DL Creatinine 1.92 H 0.60-1.30 MG/DL Estimat Glomerular Filtration Rate 34 BUN/Creatinine Ratio 26 Glucose Level 105 70-105 MG/DL Lactic Acid Level 2.03 *H 0.50-2.00 MMOL/L Calcium Level 7.7 L 8.5-10.1 MG/DL Corrected Calcium 8.8 8.5-10.1 MG/DL Phosphorus Level 5.2 H 2.3-4.7 MG/DL Magnesium Level 2.1 1.6-2.4 MG/DL Total Bilirubin 0.7 0.1-1.0 MG/DL Aspartate Amino Transf (AST/SGOT) 33 5-34 U/L Alanine Aminotransferase (ALT/SGPT) 29 0-55 U/L Alkaline Phosphatase 49 40-136 U/L Total Creatine Kinase 607 H 30-200 U/L Total Protein 5.1 L 6.4-8.2 GM/DL Albumin 2.6 L 3.2-4.5 GM/DL Triglycerides Level 93 <150 MG/DL Cholesterol Level 91 < 200 MG/DL LDL Cholesterol Direct 22 1-129 MG/DL VLDL Cholesterol 19 5-40 MG/DL HDL Cholesterol 39 L 40-60 MG/DL Urine Color YELLOW Urine Clarity CLEAR Urine pH 6.0 5-9 Urine Specific [place] 1.025 H 1.016-1.022 Urine Protein TRACE H NEGATIVE Urine Glucose (UA) NEGATIVE NEGATIVE Urine Ketones NEGATIVE NEGATIVE Urine Nitrite NEGATIVE NEGATIVE Urine Bilirubin NEGATIVE NEGATIVE Urine Urobilinogen 0.2 < = 1.0 MG/DL Urine Leukocyte Esterase NEGATIVE NEGATIVE Urine RBC (Auto) 2+ H NEGATIVE Urine RBC 2-5 H /HPF Urine WBC 0-2 /HPF Urine Squamous Epithelial Cells NONE /HPF Urine Crystals NONE /LPF Urine Bacteria FEW H /HPF Urine Casts PRESENT /LPF Urine Hyaline Casts 2-5 H /LPF Urine Granular Casts 0-2 H /LPF Urine Mucus SMALL H /LPF Urine Culture Indicated YES Glucometer 152 H 70-110 MG/DL ECG Impression ECG Comment Sinus tachycardia at 116 bpm with occasional premature ventricular complexes and nonspecific ST changes. Diagnosis/Problems Diagnosis/Problems (1) Sinus tachycardia Assessment & Plan: Most likely related to his pneumonia with sepsis. He has been placed back on his long-acting diltiazem which he takes for hypertension. I would not treat the tachycardia aggressively or he may develop hypotension. As it is, he has already on norepinephrine infusion due to septic shock. I will obtain an echocardiogram just to exclude any structural heart disease that could predispose to tachycardia (2) Acute on chronic respiratory failure with hypoxemia Assessment & Plan: He has chronic obstructive pulmonary disease and uses a nebulizer at home but is not on home oxygen. He now has superimposed pneumonia. The hospitalist and eICU are managing his pulmonary disease. (3) Primary hypertension Assessment & Plan: He did receive his diltiazem this morning but now has been placed on norepinephrine due to recurrent septic shock. If he remains on norepinephrine in the morning, we should hold his diltiazem. (4) Mixed hyperlipidemia Assessment & Plan: I have taken the liberty of ordering his home dose of atorvastatin. I also ordered a lipid panel for the morning. (5) Septic shock Assessment & Plan: Probably related to the pneumonia. He is receiving antibiotics. (6) Obesity Assessment & Plan: He needs to work on weight loss. SHERRI CHO JR, MD Oct 06, 2021 14:45
--- NOTE | 2021-10-06 15:11 | Consultation - Surgery ---
History of Present Illness History of Present Illness Patient Consulted On(princess/time) 10/06/21 15:06 Time Seen by Provider: 13:52 History of Present Illness Surgery asked to consult regarding hypotension, venous insufficiency with need for central line HPI per IM: Bharat Webber is an 81 year old male with PMH HTN, HLD, hypothyroidism, obesity, who was transferred from [facility] with septic shock due to pneumonia. He reports having fevers and chills. He was short of breath and coughing. He denies chest pain. He denies abdominal pain. He denies nausea and vomiting. He has not had diarrhea. He denies dysuria. Pt understood reason for central line and agreed to have it done. Allergies and Home Medications Allergies Coded Allergies: Penicillins (Unverified Allergy, Mild, RASH, 12/23/06) Patient Home Medication List Home Medication List Reviewed: Yes Aspirin (Aspirin) 81 Mg Tab.chew, 81 MG PO DAILY, (Reported) Entered as Reported by: JOSAFAT HUNTER on 10/06/21 0805 Last Action: Reviewed Atorvastatin Calcium (Atorvastatin Calcium) 40 Mg Tablet, 40 MG PO HS, (Reported) Entered as Reported by: AMMON KING on 07/06/201314 Last Action: Reviewed Diltiazem HCl (Diltiazem 24Hr ER) 180 Mg Cap.er.24h, 180 MG PO DAILY, (Reported) Entered as Reported by: AMMON KING on 07/06/201314 Last Action: Reviewed Levothyroxine Sodium (Levothyroxine Sodium) 125 Mcg Tablet, 125 MCG PO DAILY, (Reported) Entered as Reported by: AMMON KING on 07/06/201314 Last Action: Reviewed Past Kbzhbhm-Xtskhn-Pbljzk Hx Patient Social History Smoking Status: Former Smoker Alcohol Use?: No Respiratory History of Respiratory Disorde: Yes Cardiovascular History of Cardiac Disorders: Yes Cardiac Disorders: High Cholesterol, Hypertension Endocrine History of Endocrine Disorders: Yes Endocrine Disorders: Hypothyroidsim Family Medical History Significant Family History: No Pertinent Family Hx, Diabetes (denied in his parents) Review of Systems-General Constitutional: malaise, weakness EENTM: No mouth swelling, No epistaxis Respiratory: cough, dyspnea on exertion; No hemoptysis; short of breath Cardiovascular: chest pain, palpitations Gastrointestinal: No abdominal pain, No nausea, No vomiting Genitourinary: No dysuria, No frequency, No hematuria Physical Exam-General Problems Physical Exam Vital Signs Vital Signs - First Documented 10/05/21 10/05/21 10/05/21 22:08 22:10 22:57 Temp 37.3 Pulse 107 Resp 30 B/P (MAP) 127/63 Pulse Ox 95 O2 Delivery Vapotherm O2 Flow Rate 32.00 65.00 FiO2 65 Capillary Refill : General Appearance: moderate distress, obese Eyes: Bilateral Eye PERRL, Bilateral Eye EOMI HEENT: pharynx normal; No scleral icterus (R), No scleral icterus (L) Neck: non-tender, supple Respiratory: decreased breath sounds, accessory muscle use, wheezing Cardiovascular: no murmur, tachycardia Gastrointestinal: non tender, soft, no organomegaly Extremities: no pedal edema, no calf tenderness Neurologic/Psychiatric: alert, oriented x 3 Skin: normal color, warm/dry Data Review Labs Laboratory Tests 10/05/21 22:35: Sodium Level 134L, Potassium Level 4.5, Chloride Level 104, Carbon Dioxide Level 13L, Anion Gap 17H, Blood Urea Nitrogen 47H, Creatinine 2.11H, Estimat Glomerular Filtration Rate 30, BUN/Creatinine Ratio 22, Glucose Level 75, Lactic Acid Level 4.38*H, Calcium Level 8.1L, Phosphorus Level 4.8H, Magnesium Level 1.8, Troponin I 0.126H, C-Reactive Protein High Sensitivity 36.58H, Procalcitonin 74.19H, SARS-CoV-2 RNA (RT-PCR) Not Detected 10/05/21 23:50: White Blood Count 16.4H, Red Blood Count 3.24L, Hemoglobin 9.1L, Hematocrit 29L, Mean Corpuscular Volume 90, Mean Corpuscular Hemoglobin 28, Mean Corpuscular Hemoglobin Concent 31L, Red Cell Distribution Width 15.1H, Platelet Count 273, Mean Platelet Volume 10.8, Immature Granulocyte % (Auto) 1, Neutrophils (%) (Auto) 95H, Lymphocytes (%) (Auto) 2L, Monocytes (%) (Auto) 1, Eosinophils (%) (Auto) 0, Basophils (%) (Auto) 0, Neutrophils # (Auto) 15.6H, Lymphocytes # (Auto) 0.3L, Monocytes # (Auto) 0.2, Eosinophils # (Auto) 0.1, Basophils # (Auto) 0.1, Immature Granulocyte # (Auto) 0.2H, Neutrophils % (Manual) 61, Lymphocytes % (Manual) 4, Monocytes % (Manual) 1, Metamyelocytes % 3, Band Neutrophils 31, Poikilocytosis SLIGHT, Anisocytosis SLIGHT, Spherocytes SLIGHT, Beta-Hydroxybutyrate (Chem panel) 0.41H 10/05/21 23:55: Erythrocyte Sedimentation Rate 30, D-Dimer 1.87H, B-Type Natriuretic Peptide 2 58.1H 10/06/21 02:10: Lactic Acid Level 2.58*H 10/06/21 04:45: White Blood Count 16.7H, Red Blood Count 2.98L, Hemoglobin 8.5L, Hematocrit 27L, Mean Corpuscular Volume 91, Mean Corpuscular Hemoglobin 29, Mean Corpuscular Hemoglobin Concent 31L, Red Cell Distribution Width 15.1H, Platelet Count 257, Mean Platelet Volume 10.9, Immature Granulocyte % (Auto) 2, Neutrophils (%) (Auto) 94H, Lymphocytes (%) (Auto) 2L, Monocytes (%) (Auto) 2, Eosinophils (%) (Auto) 0, Basophils (%) (Auto) 1, Neutrophils # (Auto) 15.7H, Lymphocytes # (Auto) 0.3L, Monocytes # (Auto) 0.3, Eosinophils # (Auto) 0.1, Basophils # (Auto) 0.1, Immature Granulocyte # (Auto) 0.3H, Sodium Level 132L, Potassium Level 4.1, Chloride Level 103, Carbon Dioxide Level 17L, Anion Gap 12, Blood Urea Nitrogen 49H, Creatinine 1.92H, Estimat Glomerular Filtration Rate 34, BUN/Creatinine Ratio 26, Glucose Level 105, Lactic Acid Level 2.03*H, Calcium Level 7.7L, Corrected Calcium 8.8, Phosphorus Level 5.2H, Magnesium Level 2.1, Total Bilirubin 0.7, Aspartate Amino Transf (AST/SGOT) 33, Alanine Aminotransferase (ALT/SGPT) 29, Alkaline Phosphatase 49, Total Creatine Kinase 607H, Total Protein 5.1L, Albumin 2.6L, Triglycerides Level 93, Cholesterol Level 91, LDL Cholesterol Direct 22, VLDL Cholesterol 19, HDL Cholesterol 39L 10/06/21 06:35: Urine Color YELLOW, Urine Clarity CLEAR, Urine pH 6.0, Urine Specific [place] 1.025H, Urine Protein TRACEH, Urine Glucose (UA) NEGATIVE, Urine Ketones NEGATIVE, Urine Nitrite NEGATIVE, Urine Bilirubin NEGATIVE, Urine Urobilinogen 0.2, Urine Leukocyte Esterase NEGATIVE, Urine RBC (Auto) 2+H, Urine RBC 2-5H, Urine WBC 0-2, Urine Squamous Epithelial Cells NONE, Urine Crystals NONE, Urine Bacteria FEWH, Urine Casts PRESENT, Urine Hyaline Casts 2-5H, Urine Granular Casts 0-2H, Urine Mucus SMALLH, Urine Culture Indicated YES 10/06/21 10:45: Glucometer 152H Assessment/Plan Assessment/Plan Assessment/Plan Hypotension Septic shock Venous Insufficiency Pt needs central line because of need for multiple meds and possible pressor support. Will place today. VALERIE GÓMEZ DO Oct 06, 2021 15:11
--- NOTE | 2021-10-06 15:15 | Progress Note-Post Operative ---
Post-Operative Progess Note Surgeon (s)/Law Firm Administrator (s) Surgeon VALERIE GÓMEZ DO Law Firm Administrator: none Pre-Operative Diagnosis septic shock, venous insufficiency Post-Operative Diagnosis same Procedure & Operative Findings Date of Procedure 10/06/21 Procedure Performed/Findings Insertion of Triple Lumen Catheter The patient was in their bed in the ICU, was prepped and draped in the sterile fashion. A surgical pause was performed. Ultrasound was used to locate the internal jugular vein. Once located anesthetic was infiltrated above it. Using an 18 gauge finder needle and watching with the US; the left internal jugular vein was accessed. Dark nonpulsatile blood was withdrawn. The wire was inserted. US assured proper placement. The needle was removed. A [#11] blade scalpel was used to make a stab incision along the guidewire. Dilator sheath was then advanced over the wire using Seldinger technique and the dilator was removed. The Groshong catheter was inserted over the guide wire using the Seldinger technique. The [place] wire was removed. The catheter was then accessed in all three ports without difficulty. Good flash of blood was seen and it was then flushed with saline. The catheter was sutured in place with 3-0 silk on a riley needle. The areas were then washed and dried. Sterile dressing was placed over incision. The patient tolerated the procedure well without complication. Anesthesia Type local lidocaine Estimated Blood Loss Estimated blood loss (mL): scant Specimens/Packing Specimens Removed none VALERIE GÓMEZ DO Oct 06, 2021 15:15
[2021-10-06] MEDS ORDERED: VANCOMYCIN 1000 MG/VIAL ONE (22:44)
[2021-10-06] MEDS ORDERED: NS (IVPB) 250 ML ONE (22:45)
[2021-10-06] MEDS: ENOXAPARIN 40 MG/0.4 ML (LOVENOX) SYR SC SCH (22:56)
[2021-10-06] MEDS: VANCOMYCIN 1 GM/NS 250 ML IVPB IV SCH ×2 (22:58)
[2021-10-07] MEDS: LACTATED RINGERS 1,000 ML IV SCH ×4 (01:20→20:12)
[2021-10-07] MEDS: CEFEPIME INJECTION 1,000 MG in NS (IVPB) 50 ML IV SCH ×4 (01:21→18:18)
[2021-10-07] MEDS: NOREPINEPHRINE 8 MG/250 ML 250 ML IV SCH ×2 (01:40→16:11)
[2021-10-07] MEDS: RT-ALBUTEROL/IPRATROPIUM 3 ML (DUONEB) VIAL INH SCH ×4 (01:51→21:15)
[2021-10-07 04:09] LABS: BASOPHILS # (AUTO) 0.1 10^3/uL (0.0-0.1); BASOPHILS % (AUTO) 0 % (0-10); EOSINOPHILS % (AUTO) 0 % (0-10); HEMATOCRIT 27 % (40-54); HEMOGLOBIN 8.4 g/dL (13.3-17.7); LYMPHOCYTES # (AUTO) 0.2 10^3/uL (1.0-4.0); LYMPHOCYTES % (AUTO) 1 % (12-44); MEAN CORPUSCULAR HEMOGLOBIN 28 pg (25-34); MEAN CORPUSCULAR HGB CONC 31 g/dL (32-36); MEAN CORPUSCULAR VOLUME 88 fL (80-99); MEAN PLATELET VOLUME 10.2 fL (9.0-12.2); MONOCYTES # (AUTO) 0.9 10^3/uL (0.0-1.0); MONOCYTES % (AUTO) 5 % (0-12); NEUTROPHILS # (AUTO) 17.4 10^3/uL (1.8-7.8); NEUTROPHILS % (AUTO) 93 % (42-75); PLATELET COUNT 275 10^3/uL (130-400); WHITE BLOOD COUNT 18.7 10^3/uL (4.3-11.0)
[2021-10-07 04:21] LABS: ALBUMIN 2.6 GM/DL (3.2-4.5)
[2021-10-07 04:22] LABS: POTASSIUM 3.5 MMOL/L (3.6-5.0)
[2021-10-07 04:24] LABS: TOTAL PROTEIN 5.5 GM/DL (6.4-8.2)
[2021-10-07 04:26] LABS: BILIRUBIN,TOTAL 0.5 MG/DL (0.1-1.0)
[2021-10-07 04:28] LABS: CREATININE SERUM 1.27 MG/DL (0.60-1.30)
[2021-10-07 04:29] LABS: PHOSPHORUS 3.6 MG/DL (2.3-4.7)
[2021-10-07 04:30] LABS: MAGNESIUM 2.1 MG/DL (1.6-2.4)
[2021-10-07] MEDS: POTASSIUM CL 10MEQ/50ML IVPB 50 ML IV SCH (05:39)
[2021-10-07] MEDS: KCL 20 MEQ TAB (K-DUR) PO SCH (05:40)
[2021-10-07] MEDS: MAGNESIUM 1 GM/100 ML IVPB 100 ML IV SCH (05:40)
[2021-10-07] MEDS: inSUlin ASPART (NovoLOG) 1 UNIT/0.01 ML (CHARGE PER UNIT) SC SCH ×4 (05:40→21:00)
[2021-10-07] MEDS: HYDROCORTISONE 100 MG/2 ML (Solu-CORTEF) VIAL IV SCH ×2 (08:45→22:14)
[2021-10-07] MEDS: SENNOSIDES 8.6 MG (SENOKOT) TAB PO SCH ×2 (08:45→22:14)
[2021-10-07] MEDS: DOCUSATE SODIUM 100 MG (COLACE) CAP PO SCH ×2 (08:45→22:14)
[2021-10-07] MEDS ORDERED: KCL 20 MEQ TAB (K-DUR) PO NR (09:00)
--- NOTE | 2021-10-07 10:52 | Cardiology Progress Note ---
Progress Note-Cardiology Events since last exam Date Seen by Provider: Oct 07, 2021 Time Seen by Provider: 10:51 Events since last exam I am following him due to tachycardia. He remains in the intensive care unit. His oxygenation has improved and he is now on nasal cannula. Previously he was on Vapotherm. He still feels short of breath but this is improving. He has an occasional cough with whitish sputum. He denies chest discomfort, palpitations, or syncope. He does have mild ankle edema. Certain portions of this document may have been dictated utilizing voice recognition technology. Inherent to this technology, typographical and grammatical errors may exist. As much as I am diligent to identify and correct these mistakes, some errors may remain in the document. Vitals Last set of Vitals Signs Vital Signs 10/07/21 10/07/21 10:19 14:00 Pulse 104 Resp 22 B/P (MAP) 122/56 Pulse Ox 93 O2 Delivery High Flow N/C O2 Flow Rate 5.00 FiO2 50 Labs Labs Laboratory Tests 10/07/21 04:00 Exam Vital Signs Vital Signs Date Time Temp Pulse Resp B/P (MAP) Pulse Ox O2 Delivery O2 Flow Rate FiO2 10/07/21 14:00 104 22 122/56 93 High Flow N/C 5.00 10/07/21 12:00 36.3 10/07/21 10:19 50 Physical Exam General: Alert. No acute distress. He is obese. Eye: No xanthelasma. HENT: Normocephalic. Neck: Jugular venous pressure does not appear elevated. Respiratory: Lungs have diffusely scattered wheezes. Respirations are non- labored. Breath sounds are equal. Symmetrical chest wall expansion. Cardiovascular: Tachycardia with irregular rhythm. No murmur. No gallop. 1+ bilateral pretibial edema. Gastrointestinal: Soft. Normal bowel sounds. Skin: Warm. Dry. Neurologic: Alert and oriented to person, place, time. Cranial nerves 3-11 grossly intact. Psychiatric: Cooperative. Appropriate mood & affect. Labs Laboratory Tests Test 10/06/21 15:40 10/06/21 20:19 10/07/21 04:00 10/07/21 10:43 Range/Units Glucometer 128 H 123 H 128 H 70-110 MG/DL White Blood Count 18.7 H 4.3-11.0 10^3/uL Red Blood Count 3.03 L 4.30-5.52 10^6/uL Hemoglobin 8.4 L 13.3-17.7 g/dL Hematocrit 27 L 40-54 % Mean Corpuscular Volume 88 80-99 fL Mean Corpuscular Hemoglobin 28 25-34 pg Mean Corpuscular Hemoglobin Concent 31 L 32-36 g/dL Red Cell Distribution Width 15.0 H 10.0-14.5 % Platelet Count 275 130-400 10^3/uL Mean Platelet Volume 10.2 9.0-12.2 fL Immature Granulocyte % (Auto) 1 % Neutrophils (%) (Auto) 93 H 42-75 % Lymphocytes (%) (Auto) 1 L 12-44 % Monocytes (%) (Auto) 5 0-12 % Eosinophils (%) (Auto) 0 0-10 % Basophils (%) (Auto) 0 0-10 % Neutrophils # (Auto) 17.4 H 1.8-7.8 10^3/uL Lymphocytes # (Auto) 0.2 L 1.0-4.0 10^3/uL Monocytes # (Auto) 0.9 0.0-1.0 10^3/uL Eosinophils # (Auto) 0.0 0.0-0.3 10^3/uL Basophils # (Auto) 0.1 0.0-0.1 10^3/uL Immature Granulocyte # (Auto) 0.1 0.0-0.1 10^3/uL Sodium Level 135 135-145 MMOL/L Potassium Level 3.5 L 3.6-5.0 MMOL/L Chloride Level 105 98-107 MMOL/L Carbon Dioxide Level 18 L 21-32 MMOL/L Anion Gap 12 5-14 MMOL/L Blood Urea Nitrogen 41 H 7-18 MG/DL Creatinine 1.27 0.60-1.30 MG/DL Estimat Glomerular Filtration Rate 55 BUN/Creatinine Ratio 32 Glucose Level 109 H 70-105 MG/DL Calcium Level 8.0 L 8.5-10.1 MG/DL Corrected Calcium 9.1 8.5-10.1 MG/DL Phosphorus Level 3.6 2.3-4.7 MG/DL Magnesium Level 2.1 1.6-2.4 MG/DL Total Bilirubin 0.5 0.1-1.0 MG/DL Aspartate Amino Transf (AST/SGOT) 34 5-34 U/L Alanine Aminotransferase (ALT/SGPT) 34 0-55 U/L Alkaline Phosphatase 64 40-136 U/L Total Protein 5.5 L 6.4-8.2 GM/DL Albumin 2.6 L 3.2-4.5 GM/DL Procalcitonin 32.43 H <0.10 NG/ML Diagnosis/Problems Diagnosis/Problems (1) Sinus tachycardia Assessment & Plan: Most likely related to his pneumonia with sepsis. He has been placed back on his long-acting diltiazem which he takes for hypertension. I would not treat the tachycardia aggressively or he may develop hypotension. A follow-up echocardiogram from this admission shows a normal ejection fraction. (2) Multifocal atrial tachycardia Assessment & Plan: I suspect he is having intermittent multifocal atrial tachycardia as opposed to atrial fibrillation. We will continue diltiazem. (3) Primary hypertension Status: Chronic Assessment & Plan: Continue diltiazem if his blood pressure will tolerate. (4) Mixed hyperlipidemia Status: Chronic Assessment & Plan: Continue atorvastatin. His LDL level is quite low. (5) Acute on chronic respiratory failure with hypoxemia Status: Acute Assessment & Plan: He has chronic obstructive pulmonary disease and uses a nebulizer at home but is not on home oxygen. He now has superimposed pneumonia. The hospitalist and eICU are managing his pulmonary disease. (6) Septic shock Status: Acute Assessment & Plan: Probably related to the pneumonia. He is receiving antibiotics. (7) Obesity Status: Chronic Assessment & Plan: He needs to work on weight loss. SHERRI CHO JR, MD Oct 07, 2021 10:52
--- NOTE | 2021-10-07 11:02 | Tele-ICU Progress Note ---
Subjective Date Seen by a Provider: Oct 07, 2021 Time Seen by a Provider: 08:45 Subjective/Events-last exam This virtual visit was conducted using real time audio/video. Thank you for asking us to see this patient for respiratory insufficiency due to pna, sepsis. Also CHAZ. Covid neg. Recent events: Off Vapotherm on 5L NC. Levophed held. PE: Resting comfortably. VSS. O2 sat 96% on 5 L NC. HEENT: No obvious masses, adenopathy or JVD. Chest: wheezes on auscultation. CV: RRR S1 S2 No murmur or added sounds. Abd: Non-tender. Bowel sounds Y. : Unremarkable. Bal Y. INCLUSION INTERNSHIP/psychiatric: Grossly intact. No obvious focal findings. Extremities: No edema. Capillary refill < 3 seconds. Skin: unremarkable. Results: Elevated WCC 18.7. Decreased K 3.5, Hb 8.4. CXR: R sided infilt. Available chart/ vitals / labs / images reviewed. Video assessment done using teleICU camera, rest of exam as per RN. A/P: Respiratory insufficiency: Continue present management with NC. Cont duonebs, solucortef, abx Monitor for increasing oxygenation needs and/or need for intubation. Critical Care: critically ill patient. Cont. Dilt., ppi, Statin, SSI, Genie., Replace K. Discussed with RN Shawanda. Asked RN to reach out to eICU if any questions or concerns later. Time spent with patient/coordination of care with other health p rofessionals (mins):25 Sepsis Event Evaluation Height, Weight, BMI Height: '" Weight: lbs. oz. kg; 31.26 BMI Method: Focused Exam Lactate Level 10/05/21 22:35: Lactic Acid Level 4.38*H 10/06/21 02:10: Lactic Acid Level 2.58*H 10/06/21 04:45: Lactic Acid Level 2.03*H Exam Exam Patient acknowledged, consented, and participated in this virtual visit which was conducted using real time audio/video Vital Signs Date Time Temp Pulse Resp B/P (MAP) Pulse Ox O2 Delivery O2 Flow Rate FiO2 10/07/21 10:36 High Flow N/C 5.00 10/07/21 10:26 94 High Flow N/C 5.00 10/07/21 10:19 94 Vapotherm 25.00 50 10/07/21 10:00 117 22 126/60 96 Vapotherm 25.00 50.00 10/07/21 09:00 125 16 127/80 94 Vapotherm 25.00 50.00 10/07/21 08:19 91 Vapotherm 25.00 50 10/07/21 08:10 36.3 10/07/21 08:08 Vapotherm 25.00 50.00 10/07/21 08:00 111 13 131/52 96 Vapotherm 25.00 50.00 10/07/21 07:14 94 Vapotherm 25.00 50 10/07/21 07:00 109 16 135/92 90 Vapotherm 30.00 60.00 10/07/21 07:00 109 10/07/21 06:00 108 21 125/98 98 Vapotherm 30.00 60.00 10/07/21 05:00 104 21 120/86 99 Vapotherm 30.00 60.00 10/07/21 04:00 97 Vapotherm 30.00 60 10/07/21 04:00 109 17 101/46 95 Vapotherm 30.00 60.00 10/07/21 03:00 115 20 117/64 96 Vapotherm 30.00 60.00 10/07/21 02:00 112 18 119/61 95 Vapotherm 30.00 60.00 10/07/21 01:51 94 Vapotherm 30.00 60 10/07/21 01:00 108 10/07/21 01:00 101 23 125/66 97 Vapotherm 30.00 60.00 10/07/21 00:00 109 22 116/53 96 Vapotherm 30.00 60.00 10/07/21 00:00 97 Vapotherm 30.00 60 10/06/21 23:00 124 24 125/59 96 Vapotherm 30.00 60.00 10/06/21 22:20 Vapotherm 30.00 60.00 10/06/21 22:00 118 20 111/67 97 Vapotherm 30.00 70.00 10/06/21 21:17 97 Vapotherm 30.00 70 10/06/21 21:00 116 29 136/75 96 Vapotherm 30.00 70.00 10/06/21 20:00 Vapotherm 30.00 70.00 10/06/21 20:00 97 Vapotherm 30.00 70 10/06/21 20:00 117 22 122/73 99 Vapotherm 30.00 70.00 10/06/21 19:00 118 16 132/72 95 Vapotherm 30.00 70.00 10/06/21 19:00 117 10/06/21 18:49 Vapotherm 30.00 70 10/06/21 18:00 118 21 123/86 99 Vapotherm 30.00 70.00 10/06/21 17:00 121 100/74 99 Vapotherm 30.00 70.00 10/06/21 16:00 115 16 99/70 82 Vapotherm 30.00 70.00 10/06/21 15:50 97 Vapotherm 30.00 70 10/06/21 15:42 37.1 10/06/21 15:00 113 29 95/65 99 Vapotherm 30.00 70.00 10/06/21 14:47 Vapotherm 30.00 70.00 10/06/21 14:38 Vapotherm 30.00 70 10/06/21 14:00 135 31 137/81 95 Vapotherm 30.00 75.00 10/06/21 13:00 138 10/06/21 13:00 130 27 100/70 95 Vapotherm 30.00 75.00 10/06/21 12:26 97 Vapotherm 30.00 75 10/06/21 12:00 36.9 10/06/21 12:00 118 28 89/59 97 Vapotherm 30.00 75.00 10/06/21 11:09 126 84/56 10/06/21 11:00 118 22 82/42 97 Vapotherm 30.00 75.00 I & O 10/07/21 07:00 Intake Total 4745 ml Output Total 2600 ml Balance 2145 ml Height & Weight Height: '" Weight: lbs. oz. kg; 31.26 BMI Method: General Appearance: Chronically ill, Mild Distress (uncomfortable, fatigued), Obese HEENT: PERRL/EOMI, Other (dry mucous membranes) Neck: Normal Inspection, Supple Respiratory: Decreased Breath Sounds, Wheezing, Other (wearing Vapotherm) Cardiovascular: No Murmur, Irregularly Irregular, Tachycardia Peripheral Pulses: 1+ Dorsalis Pedis (R), 1+ Left Dors-Pedis (L) (See free text.) Gastrointestinal: non tender, soft, no organomegaly Extremity: Normal Inspection, No Pedal Edema Neurologic/Psychiatric: Alert, No Motor/Sensory Deficits Skin: Normal Color, Warm/Dry Results Lab Laboratory Tests 10/05/21 22:35 10/05/21 23:50 10/06/21 04:45 10/07/21 04:00 Assessment/Plan Assessment/Plan See free text. Critical Care: Critically Ill Patient MIKAYLA RICHARDS MD Oct 07, 2021 11:01
--- NOTE | 2021-10-07 11:17 | Progress Note - Surgery ---
JON NAIDU MED STUDENT 10/07/21 1117: Subjective Date Seen by a Provider: Oct 07, 2021 Time Seen by a Provider: 11:00 Subjective/Events-last exam Mr selby is sitting up in bed this morning. States he is not having any pain. No nausea or vomiting with eating or drinking. Is urinating okay, no BM since he has been in hospital. Has no concerns. Central line is in place. Review of Systems General: No Chills HEENT: No Head Aches, No Visual Changes Pulmonary: No Dyspnea, No Cough Cardiovascular: No: Chest Pain, Palpitations, Edema Gastrointestinal: No: Nausea, Vomiting, Abdominal Pain, Diarrhea, Constipation, Melena Genitourinary: No Dysuria, No Incontinence, No Hematuria Musculoskeletal: No: leg pain, foot pain Focused Exam Lactate Level 10/05/21 22:35: Lactic Acid Level 4.38*H 10/06/21 02:10: Lactic Acid Level 2.58*H 10/06/21 04:45: Lactic Acid Level 2.03*H Objective Exam Vital Signs Date Time Temp Pulse Resp B/P (MAP) Pulse Ox O2 Delivery O2 Flow Rate FiO2 10/07/21 10:36 High Flow N/C 5.00 10/07/21 10:26 94 High Flow N/C 5.00 10/07/21 10:19 94 Vapotherm 25.00 50 10/07/21 10:00 117 22 126/60 96 Vapotherm 25.00 50.00 10/07/21 09:00 125 16 127/80 94 Vapotherm 25.00 50.00 10/07/21 08:19 91 Vapotherm 25.00 50 10/07/21 08:10 36.3 10/07/21 08:08 Vapotherm 25.00 50.00 10/07/21 08:00 111 13 131/52 96 Vapotherm 25.00 50.00 10/07/21 07:14 94 Vapotherm 25.00 50 10/07/21 07:00 109 16 135/92 90 Vapotherm 30.00 60.00 10/07/21 07:00 109 10/07/21 06:00 108 21 125/98 98 Vapotherm 30.00 60.00 10/07/21 05:00 104 21 120/86 99 Vapotherm 30.00 60.00 10/07/21 04:00 97 Vapotherm 30.00 60 10/07/21 04:00 109 17 101/46 95 Vapotherm 30.00 60.00 10/07/21 03:00 115 20 117/64 96 Vapotherm 30.00 60.00 10/07/21 02:00 112 18 119/61 95 Vapotherm 30.00 60.00 10/07/21 01:51 94 Vapotherm 30.00 60 10/07/21 01:00 108 10/07/21 01:00 101 23 125/66 97 Vapotherm 30.00 60.00 10/07/21 00:00 109 22 116/53 96 Vapotherm 30.00 60.00 10/07/21 00:00 97 Vapotherm 30.00 60 10/06/21 23:00 124 24 125/59 96 Vapotherm 30.00 60.00 10/06/21 22:20 Vapotherm 30.00 60.00 10/06/21 22:00 118 20 111/67 97 Vapotherm 30.00 70.00 10/06/21 21:17 97 Vapotherm 30.00 70 10/06/21 21:00 116 29 136/75 96 Vapotherm 30.00 70.00 10/06/21 20:00 Vapotherm 30.00 70.00 10/06/21 20:00 97 Vapotherm 30.00 70 10/06/21 20:00 117 22 122/73 99 Vapotherm 30.00 70.00 10/06/21 19:00 118 16 132/72 95 Vapotherm 30.00 70.00 10/06/21 19:00 117 10/06/21 18:49 Vapotherm 30.00 70 10/06/21 18:00 118 21 123/86 99 Vapotherm 30.00 70.00 10/06/21 17:00 121 100/74 99 Vapotherm 30.00 70.00 10/06/21 16:00 115 16 99/70 82 Vapotherm 30.00 70.00 10/06/21 15:50 97 Vapotherm 30.00 70 10/06/21 15:42 37.1 10/06/21 15:00 113 29 95/65 99 Vapotherm 30.00 70.00 10/06/21 14:47 Vapotherm 30.00 70.00 10/06/21 14:38 Vapotherm 30.00 70 10/06/21 14:00 135 31 137/81 95 Vapotherm 30.00 75.00 10/06/21 13:00 138 10/06/21 13:00 130 27 100/70 95 Vapotherm 30.00 75.00 10/06/21 12:26 97 Vapotherm 30.00 75 10/06/21 12:00 36.9 10/06/21 12:00 118 28 89/59 97 Vapotherm 30.00 75.00 I & O 10/07/21 07:00 Intake Total 4745 ml Output Total 2600 ml Balance 2145 ml Capillary Refill : General Appearance: No Apparent Distress, Chronically ill, Mild Distress (uncomfortable, fatigued), Obese HEENT: PERRL/EOMI, Pharynx Normal, Moist Mucous Membranes, Other (dry mucous membranes) Respiratory: Chest Non Tender, No Accessory Muscle Use, Decreased Breath Sounds, Wheezing, Other (wearing Vapotherm) Cardiovascular: Regular Rate, Rhythm, No Murmur, Irregularly Irregular, Tachycardia Peripheral Pulses: 2+ Radial Pulses (R), 2+ Radial Pulses (L) Gastrointestinal: non tender, soft, no organomegaly, abnormal bowel sounds (hypoactive) Extremity: Normal Inspection, No Pedal Edema Neurologic/Psychiatric: Alert, No Motor/Sensory Deficits Skin: Normal Color, Warm/Dry Results Lab Laboratory Tests 10/06/21 15:40: Glucometer 128H 10/06/21 20:19: Glucometer 123H 10/07/21 04:00: White Blood Count 18.7H, Red Blood Count 3.03L, Hemoglobin 8.4L, Hematocrit 27L, Mean Corpuscular Volume 88, Mean Corpuscular Hemoglobin 28, Mean Corpuscular Hemoglobin Concent 31L, Red Cell Distribution Width 15.0H, Platelet Count 275, Mean Platelet Volume 10.2, Immature Granulocyte % (Auto) 1, Neutrophils (%) (Auto) 93H, Lymphocytes (%) (Auto) 1L, Monocytes (%) (Auto) 5, Eosinophils (%) (Auto) 0, Basophils (%) (Auto) 0, Neutrophils # (Auto) 17.4H, Lymphocytes # (Auto) 0.2L, Monocytes # (Auto) 0.9, Eosinophils # (Auto) 0.0, Basophils # (Auto) 0.1, Immature Granulocyte # (Auto) 0.1, Sodium Level 135, Potassium Level 3.5L, Chloride Level 105, Carbon Dioxide Level 18L, Anion Gap 12, Blood Urea Nitrogen 41H, Creatinine 1.27, Estimat Glomerular Filtration Rate 55, BUN/Creatinine Ratio 32, Glucose Level 109H, Calcium Level 8.0L, Corrected Calcium 9.1, Phosphorus Level 3.6, Magnesium Level 2.1, Total Bilirubin 0.5, Aspartate Amino Transf (AST/SGOT) 34, Alanine Aminotransferase (ALT/SGPT) 34, Alkaline Phosphatase 64, Total Protein 5.5L, Albumin 2.6L, Procalcitonin 32.43H 10/07/21 10:43: Glucometer 128H Microbiology 10/05/21 Blood Culture - Preliminary, Resulted No growth Assessment/Plan Assessment/Plan Assessment/Plan Hypotension Septic shock Venous Insufficiency Hypokalemia Hypoxia Pt is 126/60 today and is on pressors. Central line in place, Will continue to monitor. Continue with ABX. No need for surgical intervention at this time. His potassium is being replaced. 94% on 5L of oxygen. VALERIE GÓMEZ DO 10/08/21 1408: Subjective Time Seen by a Provider: 12:11 Review of Systems General: No Chills Pulmonary: No Dyspnea, No Cough Cardiovascular: No: Chest Pain, Palpitations Objective Exam General Appearance: No Apparent Distress, Chronically ill, Obese Supervisory-Addendum Brief Verification & Attestation Participated in pt care: other Personally performed: other Care discussed with: Medical Student Procedures: n/a I did not see pt, just discussed pt with med student. JON NAIDU MED STUDENT Oct 07, 2021 11:17 VALERIE GÓMEZ DO Oct 08, 2021 14:08
[2021-10-07] MEDS: ENOXAPARIN 100 MG/1 ML (LOVENOX) SYR SC SCH ×2 (11:44→22:16)
[2021-10-07 15:11] VITALS: BP 122/56
[2021-10-07] MEDS ORDERED: VANCOMYCIN 1000 MG/VIAL ONE (20:28)
[2021-10-07] MEDS ORDERED: NS (IVPB) 250 ML ONE (20:29)
--- NOTE | 2021-10-07 20:51 | Progress Note - Hospitalist ---
Subjective HPI/CC On Admission Date Seen by Provider: Oct 07, 2021 Time Seen by Provider: 10:15 Bharat Webber is an 81 year old male with PMH HTN, HLD, hypothyroidism, obesity, who was transferred from [facility] with septic shock due to pneumonia. He reports having fevers and chills. He was short of breath and coughing. He denies chest pain. He denies abdominal pain. He denies nausea and vomiting. He has not had diarrhea. He denies dysuria. Subjective/Events-last exam He is feeling better. He is not short of brearh. He denies pain. Focused Exam Lactate Level 10/05/21 22:35: Lactic Acid Level 4.38*H 10/06/21 02:10: Lactic Acid Level 2.58*H 10/06/21 04:45: Lactic Acid Level 2.03*H Objective Exam Vital Signs Vital Signs Date Time Temp Pulse Resp B/P (MAP) Pulse Ox O2 Delivery O2 Flow Rate FiO2 10/07/21 20:00 95 High Flow N/C 5.00 10/07/21 19:59 36.6 10/07/21 18:00 111 23 110/86 10/07/21 15:11 40 Capillary Refill : General Appearance: No Apparent Distress, Chronically ill, Obese Respiratory: No Respiratory Distress, Decreased Breath Sounds, Wheezing Cardiovascular: Irregularly Irregular, Tachycardia Gastrointestinal: Normal Bowel Sounds, Soft Extremity: Normal Inspection, No Pedal Edema Neurologic/Psychiatric: Alert, Motor Weakness Skin: Normal Color, Warm/Dry Results/Procedures Lab Laboratory Tests 10/07/21 04:00 Patient resulted labs reviewed. Imaging: Reviewed Imaging Report Assessment/Plan Assessment and Plan Assess & Plan/Chief Complaint Multifocal pneumonia Acute respiratory failure with hypoxia NSTEMI AFib with RVR Transitioning off Vapotherm IV fluids Vancomycin and Cefepime CT chest negative for PE, showed multifocal pneumonia TeleICU consulted Troponin slightly elevated Cardiology consulted Cardizem Therapeutic Lovenox HTN HLD Hypothryoidism DVT prophylaxis: Lovenox Lactic acidosis, resolved Acute kidney injury, resolved Septic shock, resolved Critical Care Critically Ill Patient Diagnosis/Problems Diagnosis/Problems (1) Septic shock Status: Acute (2) Pneumonia Status: Acute (3) Acute on chronic respiratory failure with hypoxemia Status: Acute (4) Lactic acidosis Status: Acute (5) Acute kidney injury Status: Acute (6) NSTEMI (non-ST elevation myocardial infarction) Status: Acute (7) Primary hypertension Status: Chronic (8) Mixed hyperlipidemia Status: Chronic (9) Obesity Status: Chronic KIEL ESCOBAR MD Oct 07, 2021 20:51
[2021-10-07] MEDS: PANTOPRAZOLE 40 MG (PROTONIX) VIAL IV SCH (22:14)
[2021-10-07] MEDS: VANCOMYCIN 1 GM/NS 250 ML IVPB IV SCH ×2 (22:16)
[2021-10-08] MEDS: CEFEPIME INJECTION 1,000 MG in NS (IVPB) 50 ML IV SCH ×4 (00:22→19:46)
[2021-10-08] MEDS: RT-ALBUTEROL/IPRATROPIUM 3 ML (DUONEB) VIAL INH SCH ×4 (03:06→21:27)
[2021-10-08] MEDS: LACTATED RINGERS 1,000 ML IV SCH ×3 (03:40→17:01)
[2021-10-08 03:51] LABS: BASOPHILS % (AUTO) 0 % (0-10); EOSINOPHILS % (AUTO) 0 % (0-10); HEMATOCRIT 25 % (40-54); HEMOGLOBIN 7.9 g/dL (13.3-17.7); LYMPHOCYTES # (AUTO) 0.3 10^3/uL (1.0-4.0); LYMPHOCYTES % (AUTO) 2 % (12-44); MEAN CORPUSCULAR HEMOGLOBIN 28 pg (25-34); MEAN CORPUSCULAR HGB CONC 32 g/dL (32-36); MEAN CORPUSCULAR VOLUME 88 fL (80-99); MEAN PLATELET VOLUME 10.5 fL (9.0-12.2); MONOCYTES # (AUTO) 1.1 10^3/uL (0.0-1.0); MONOCYTES % (AUTO) 6 % (0-12); NEUTROPHILS % (AUTO) 90 % (42-75); PLATELET COUNT 243 10^3/uL (130-400); WHITE BLOOD COUNT 16.7 10^3/uL (4.3-11.0)
[2021-10-08 04:03] LABS: ALBUMIN 2.4 GM/DL (3.2-4.5)
[2021-10-08 04:04] LABS: POTASSIUM 3.7 MMOL/L (3.6-5.0)
[2021-10-08 04:05] LABS: CALCIUM 7.8 MG/DL (8.5-10.1)
[2021-10-08 04:06] LABS: TOTAL PROTEIN 5.2 GM/DL (6.4-8.2)
[2021-10-08 04:08] LABS: BILIRUBIN,TOTAL 0.4 MG/DL (0.1-1.0)
[2021-10-08 04:09] LABS: CREATININE SERUM 0.88 MG/DL (0.60-1.30)
[2021-10-08 04:10] LABS: PHOSPHORUS 2.5 MG/DL (2.3-4.7)
[2021-10-08] MEDS: POTASSIUM CL 10MEQ/50ML IVPB 50 ML IV SCH (04:30)
[2021-10-08] MEDS: NOREPINEPHRINE 8 MG/250 ML 250 ML IV SCH (04:30)
[2021-10-08] MEDS: MAGNESIUM 1 GM/100 ML IVPB 100 ML IV SCH (04:30)
[2021-10-08] MEDS: KCL 20 MEQ TAB (K-DUR) PO SCH (04:30)
[2021-10-08] MEDS: inSUlin ASPART (NovoLOG) 1 UNIT/0.01 ML (CHARGE PER UNIT) SC SCH ×4 (04:30→21:14)
[2021-10-08] MEDS: HYDROCORTISONE 100 MG/2 ML (Solu-CORTEF) VIAL IV SCH (09:21)
[2021-10-08] MEDS: SENNOSIDES 8.6 MG (SENOKOT) TAB PO SCH ×2 (09:22→19:47)
[2021-10-08] MEDS: DOCUSATE SODIUM 100 MG (COLACE) CAP PO SCH ×3 (09:22→20:25)
[2021-10-08] MEDS ORDERED: DILT180C82 PO (09:52)
[2021-10-08] MEDS ORDERED: FAMO-119 PO (09:52)
[2021-10-08] MEDS ORDERED: LEVO112T55 PO (09:52)
[2021-10-08] MEDS ORDERED: PRD10T PO (09:52)
--- NOTE | 2021-10-08 11:20 | Tele-ICU Progress Note ---
Subjective Date Seen by a Provider: Oct 08, 2021 Time Seen by a Provider: 11:20 Subjective/Events-last exam Today he is sitting in the chair. Heart rate improved anywhere ranging from 90- 105/min. He has occasional PVCs present. He is getting LR at 150 cc and has some wheezing hence I am cutting down his IV fluids to 60 cc/h. Currently his blood pressure is 125/73. He is on 5 L nasal cannula. Advised her to put a ph ysical therapy on consult. Discussed with the [employer]. Sepsis Event Evaluation Height, Weight, BMI Height: '" Weight: lbs. oz. kg; 31.26 BMI Method: Focused Exam Lactate Level 10/05/21 22:35: Lactic Acid Level 4.38*H 10/06/21 02:10: Lactic Acid Level 2.58*H 10/06/21 04:45: Lactic Acid Level 2.03*H Exam Exam Patient acknowledged, consented, and participated in this virtual visit which was conducted using real time audio/video Vital Signs Date Time Temp Pulse Resp B/P (MAP) Pulse Ox O2 Delivery O2 Flow Rate FiO2 10/08/21 09:56 95 High Flow N/C 3.00 10/08/21 08:00 36.6 10/08/21 07:00 107 10/08/21 06:00 99 21 121/76 93 High Flow N/C 5.00 10/08/21 05:00 99 21 101/55 99 High Flow N/C 5.00 10/08/21 04:30 85 10/08/21 04:00 96 16 108/63 87 High Flow N/C 5.00 10/08/21 03:49 36.6 10/08/21 03:18 95 High Flow N/C 5.00 10/08/21 03:07 92 High Flow N/C 7.00 10/08/21 03:00 99 120/78 93 High Flow N/C 5.00 10/08/21 02:00 130 114/63 91 High Flow N/C 5.00 10/08/21 01:00 91 122/63 92 High Flow N/C 5.00 10/08/21 01:00 91 10/08/21 00:00 98 118/66 95 High Flow N/C 5.00 10/07/21 23:42 37.2 10/07/21 23:22 95 High Flow N/C 5.00 10/07/21 23:00 101 128/63 95 High Flow N/C 5.00 10/07/21 22:00 105 127/74 97 High Flow N/C 5.00 10/07/21 21:15 96 High Flow N/C 7.00 10/07/21 21:00 103 132/62 96 High Flow N/C 5.00 10/07/21 20:00 101 134/56 95 High Flow N/C 5.00 10/07/21 20:00 95 High Flow N/C 5.00 10/07/21 19:59 36.6 10/07/21 19:00 104 10/07/21 19:00 98 24 129/61 97 High Flow N/C 5.00 10/07/21 18:00 111 23 110/86 High Flow N/C 5.00 10/07/21 17:00 108 29 135/66 94 High Flow N/C 5.00 10/07/21 16:37 93 High Flow N/C 5.00 10/07/21 16:08 36.4 10/07/21 16:00 112 23 108/59 95 High Flow N/C 5.00 10/07/21 15:11 36.3 104 98 40 10/07/21 15:00 105 19 118/66 94 High Flow N/C 5.00 10/07/21 14:00 104 22 122/56 93 High Flow N/C 5.00 10/07/21 13:00 118 14 139/91 93 High Flow N/C 5.00 10/07/21 12:55 113 10/07/21 12:00 36.3 10/07/21 12:00 108 26 115/72 96 High Flow N/C 5.00 10/07/21 11:54 94 High Flow N/C 5.00 I & O 10/08/21 07:00 Intake Total 5510 ml Output Total 2250 ml Balance 3260 ml Height & Weight Height: '" Weight: lbs. oz. kg; 31.26 BMI Method: General Appearance: No Apparent Distress, Chronically ill, Obese HEENT: PERRL/EOMI, Pharynx Normal, Moist Mucous Membranes, Other (dry mucous membranes) Respiratory: No Respiratory Distress, Decreased Breath Sounds, Wheezing Cardiovascular: Irregularly Irregular, Tachycardia Peripheral Pulses: 2+ Radial Pulses (R), 2+ Radial Pulses (L) Gastrointestinal: non tender, soft, no organomegaly, abnormal bowel sounds (hypoactive) Extremity: Normal Inspection, No Pedal Edema Neurologic/Psychiatric: Alert, Motor Weakness Skin: Normal Color, Warm/Dry Other comments PE PER RN Results Lab Laboratory Tests 10/07/21 04:00 10/08/21 03:44 Assessment/Plan Assessment/Plan 1. Right-sided extensive pneumonia clinically improving 2. Septic shock with a tachycardia probably due to pneumonia improving and off the Levophed. 3. Wheezing secondary to pneumonia however rule out fluid overload 4. Murmurs atrial fibrillation with rapid ventricular rate. Patient on Cardizem and cardiology following. 5. History of hypertension, hyperlipidemia and hypothyroidism. 6. Lactic acidosis and acute kidney injury improved. Recommendations 1. Continue oxygenation with nasal cannula 2. Continue vancomycin and cefepime 3. Cardiogenic per cardiology 4. Decrease IV fluids to 60 cc/h 5. Will repeat chest x-ray. 6. Suggested physical therapy to ambulate in the room. Critical Care: Critically Ill Patient Time spent with patient (mins): 25 Diagnosis/Problems Diagnosis/Problems (1) Lactic acidosis Status: Acute (2) NSTEMI (non-ST elevation myocardial infarction) Status: Acute (3) Acute kidney injury Status: Acute (4) Atrial fibrillation with RVR (5) Pneumonia Status: Acute (6) Septic shock Status: Acute ROBERTA ANGELA MD Oct 08, 2021 11:20
[2021-10-08] MEDS: ENOXAPARIN 100 MG/1 ML (LOVENOX) SYR SC SCH ×2 (11:35→22:31)
--- NOTE | 2021-10-08 11:40 | Physical Therapy Evaluation ---
PT Evaluation-General Medical Diagnosis Admission Date Oct 05, 2021 at 22:00 Medical Diagnosis: septic shock due to pneumonia Onset Date: Oct 05, 2021 Therapy Diagnosis Therapy Diagnosis: generalized weakness/debility Precautions Precautions/Isolations: Fall Prevention, Standard Precautions Referral Physician: Rena Reason for Referral: Evaluation/Treatment Medical History Pertinent Medical History: Atrial Fib, HTN, Hypothroidism Current History [place] [facility] [place] to respiratory failure with hypoxia Reviewed History: Yes Social History Home: Single Level Current Living Status: Spouse Prior Prior Level of Function SCALE: Activities may be completed with or without assistive devices. 6-Mihmterzic-lpnsftu completes the activity by him/herself with no assistance from a helper. 5-Set-up or Clean-up Assistance-helper sets up or cleans up; patient completes activity. [place] assists only prior to or following the activity. 4-Supervision or Touching Assistance-helper provides verbal cues and/or touchi ng/steadying and/or contact guard assistance as patient completes activity. Assistance may be provided throughout the activity or intermittently. 3-Partial/Moderate Assistance-helper does LESS THAN HALF the effort. [place] lifts, holds or supports trunk or limbs, but provides less than half the effort. 2-Substantial/Maximal Assistance-helper does MORE THAN HALF the effort. [place] lifts or holds trunk or limbs and provides more than half the effort. 8-Usuizzozq-irsoum does ALL the effort. Patient does none of the effort to complete the activity. Or, the assistance of 2 or more helpers is required for the patient to complete the activity. If activity was not attempted, code reason: 7-Patient Refused. 9-Not Applicable-not attempted and the patient did not perform the activity before the current illness, exacerbation or injury. 10-Not Attempted due to Environmental Limitations-(lack of equipment, weather restraints, etc.). 88-Not Attempted due to Medical Conditions or Safety Concerns. Bed Mobility: 6 Transfers (B,C,W/C): 6 Gait: 6 Stairs: 6 Indoor Mobility (Ambulation): Independent Stairs: Independent Prior Devices Use: None PT Evaluation-Current Subjective Patient agrees to PT. C/o SOA at rest with SAO2 94% with O2 in place. Objective Patient Orientation: Normal For Age Attachments: Oxygen (3L HF), Bal Catheter, IV ROM/Strength ROM Lower Extremities bilateral LE WFL Strength Lower Extremities 3+/5 grossly bilateral LE Integumentary/Posture Bowel Incontinence: No Bladder Incontinence: Bal Cath Posture kyphotic Neuromuscular (Tone, Coordination, Reflexes) grossly intact Sensory Vision: Functional Hearing: Impaired Transfers Lying to Sitting/Side of Bed(Q: 4 Sit to Stand (QC): 3 Chair/Krr-dx-Xffay Xfer(QC): 3 Gait Mode of Locomotion: Walk Anticipated Mode of Locomotion: Walk Walk 10 feet (QC): 3 Walk 50 ft with 2 Turns(QC): 88 Distance: 10' Gait Assistive Device: FWW Comments/Gait Description functional gait sequence/decrease SAO2 to 82% with minimal activity with quick recovery. Balance Sitting Static: Normal Sitting Dynamic: Normal Standing Static: Fair Standing Dynamic: Fair Assessment/Needs 81 y.o. male, will benefit from skilled PT to address pulmonary function with functional mobility and strengthening to ensure safe return to home. Rehab Potential: Fair PT Custodial Goals Inspector [employer] Goals PT Custodial Goals Time Frame: Oct 27, 2021 Roll Left & Right (QC): 6 Sit to Lying (QC): 6 Lying-Sitting on Side/Bed(QC): 6 Sit to Stand (QC): 6 Chair/Mwz-eu-Nesxe Xfer(QC): 6 Toilet Transfer (QC): 6 Walk 10 feet (QC): 5 Walk 50ft with 2 Turns (QC): 5 Walk 150 ft (QC): 5 PT Plan Problem List Problem List: Activity Tolerance, Functional Strength, Safety, Balance, Gait, Transfer, Bed Mobility Treatment/Plan Treatment Plan: Continue Plan of Care Treatment Plan: Bed Mobility, Education, Functional Activity Tatiana, Functional Strength, Gait, Safety, Therapeutic Exercise, Transfers Treatment Duration: Oct 27, 2021 Frequency: 6 times per week Estimated Hrs Per Day: .5 hour per day Patient and/or Family Agrees t: Yes Time/GCodes Time In: 1050 Time Out: 1104 Total Billed Treatment Time: 14 Total Billed Treatment 1 visit EVMod 14 min INOCENCIA WITT PT Oct 08, 2021 11:40
--- NOTE | 2021-10-08 13:29 | Occupational Therapy Eval ---
OT Evaluation-General/PLF Medical Diagnosis Admission Date Oct 05, 2021 at 22:00 Medical Diagnosis: septic shock due to pneumonia Onset Date: Oct 05, 2021 Therapy Diagnosis Therapy Diagnosis: decreased ADL status Precautions Precautions/Isolations: Fall Prevention, Standard Precautions Referral Physician: Rena Joy Reason: Evaluation/Treatment Medical History Pertinent Medical History: Atrial Fib, HTN, Hypothroidism Additional Medical History obesity Current History transfer from OSH with septic shock due to PNA Social History Home: Single Level Current Living Status: Spouse ADL-Prior Level of Function SCALE: Activities may be completed with or without assistive devices. 6-Lgtljuhbjg-bkvjfvd completes the activity by him/herself with no assistance from a helper. 5-Set-up or Clean-up Assistance-helper sets up or cleans up; patient completes activity. [place] assists only prior to or following the activity. 4-Supervision or Touching Assistance-helper provides verbal cues and/or touching/steadying and/or contact guard assistance as patient completes activity. Assistance may be provided throughout the activity or intermittently. 3-Partial/Moderate Assistance-helper does LESS THAN HALF the effort. [place] lifts, holds or supports trunk or limbs, but provides less than half the effort. 2-Substantial/Maximal Assistance-helper does MORE THAN HALF the effort. [place] lifts or holds trunk or limbs and provides more than half the effort. 2-Xswtimmsu-geuqrg does ALL the effort. Patient does none of the effort to complete the activity. Or, the assistance of 2 or more helpers is required for the patient to complete the activity. If activity was not attempted, code reason: 7-Patient Refused. 9-Not Applicable-not attempted and the patient did not perform the activity before the current illness, exacerbation or injury. 10-Not Attempted due to Environmental Limitations-(lack of equipment, weather restraints, etc.). 88-Not Attempted due to Medical Conditions or Safety Concerns. ADL PLOF Comments Pt reports IND with ADLs and functional mobility at PLOF, no AD Self Care: Independent Functional Cognition: Independent OT Current Status Subjective Pt up in recliner, agreeable to OT Tx. Pt has visitor present throughout session. Mental Status/Objective Patient Orientation: Person, Place, Situation Attachments: Bal Catheter, IV, Oxygen Current Upper Extremity ROM WFL, RUE shoulder flexion to approx 150 degrees, LUE shoulder flexion to approx 135 degrees. Upper Extremity Coordination WFL Upper Extremity Sensation WFL Upper Extremity Strength grossly 3+/5 ADL-Treatment Eating (QC): 5 (Per clincial judgment) On/Off Footwear (QC): 1 (Total assist) Toileting Hygiene (QC): 1 (catheter) Other Treatments Pt seated upright in recliner, agreeable to OT tx. Pt provided information about PLOF and home set up, and participated in UE Screen. Pt attempted to doff gripper socks, pt unable to reach either foot. Total assistance would be required to doff/don gripper socks. In order to increase BUE Strength and activity tolerance, and to increase pulmonary function, pt completed x5 reps each of the following: shoulder flexion and front punch. Pt instructed to increase reps as tolerated, he verbalized understanding. Post tx, pt in recliner, call light in reach and all needs met. Education OT Patient Education: Correct positioning, Energy conservation, Exercise program, Modified ADL techniques, Progress toward Goal/Update tx plan, Purpose of tx/functional activities, Rehab process Teaching Recipient: Patient Teaching Methods: Discussion Response to Teaching: Verbalize Understanding OT City Distribution Clerk Goals Prison Goals Time Frame: Oct 26, 2021 Eating (QC): 6 Oral Hygiene (QC): 6 Toileting Hygiene (QC): 6 Shower/Bathe Self (QC): 6 Upper Body Dressing (QC): 6 Lower Body Dressing (QC): 6 On/Off Footwear (QC): 6 Additional Goals: 1-Demonstrate ADL Tasks, 2-Verbalize Understanding, 3-ImproveStrength/[place] 1=Demonstrate adherence to instructed precautions during ADL tasks. 2=Patient will verbalize/demonstrate understanding of assistive devices/modifications for ADL. 3=Patient will improve strength/tolerance for activity to enable patient to perform ADL's. OT Education/Plan Problem List/Assessment Assessment: Decreased Activ Tolerance, Decreased UE Strength, Impaired Funct Balance, Impaired I ADL's, Impaired Self-Care Skills, Restricted Funct UE ROM Discharge Recommendations Plan/Recommendations: Continue POC Treatment Plan/Plan of Care Patient would benefit from OT for education, treatment and training to promote independence in ADL's, mobility, safety and/or upper extremity function for ADL's. Plan of Care: ADL Retraining, Functional Mobility, UE Funct Exercise/Act Treatment Duration: Oct 26, 2021 Frequency: 3 times per week (3-5 times per week) Rehab Potential: Fair Time/GCodes Start Time: 13:05 Stop Time: 13:17 Total Time Billed (hr/min): 12 Billed Treatment Time 1, SHEREEN SEGAL OT Oct 08, 2021 13:29
--- NOTE | 2021-10-08 16:26 | Cardiology Progress Note ---
Progress Note-Cardiology Events since last exam Date Seen by Provider: Oct 08, 2021 Time Seen by Provider: 16:23 Events since last exam I am following him due to tachycardia. Today I was able to speak with his who was at the bedside. He still feels very short of breath with minimal activity. He denies chest discomfort, palpitations, syncope, or ankle edema. His does not recall him ever being told he has atrial fibrillation but he has had fast heart rates in the past. Certain portions of this document may have been dictated utilizing voice recognition technology. Inherent to this technology, typographical and grammatical errors may exist. As much as I am diligent to identify and correct these mistakes, some errors may remain in the document. Vitals Last set of Vitals Signs Vital Signs 10/07/21 10/08/21 10/08/21 10/08/21 10/08/21 15:11 12:00 13:00 14:51 15:59 Temp 36.6 Pulse 103 Resp 23 B/P (MAP) 83/33 Pulse Ox 99 O2 Delivery High Flow N/C O2 Flow Rate 3.00 FiO2 40 Labs Labs Laboratory Tests 10/08/21 03:44 Exam Vital Signs Vital Signs Date Time Temp Pulse Resp B/P (MAP) Pulse Ox O2 Delivery O2 Flow Rate FiO2 10/08/21 15:59 36.6 10/08/21 14:51 99 High Flow N/C 3.00 10/08/21 13:00 103 10/08/21 12:00 23 83/33 10/07/21 15:11 40 Physical Exam General: Alert. No acute distress. He is obese. Eye: No xanthelasma. HENT: Normocephalic. Neck: Jugular venous pressure does not appear elevated. Respiratory: Lungs are clear to auscultation but with diffusely decreased breath sounds. Respirations are non-labored. Breath sounds are equal. Symmetrical chest wall expansion. Cardiovascular: Tachycardia. Regular rhythm. No murmur. No gallop. No edema. Gastrointestinal: Soft. Normal bowel sounds. Skin: Warm. Dry. Neurologic: Alert and oriented to person, place, time. Cranial nerves 3-11 grossly intact. Psychiatric: Cooperative. Appropriate mood & affect. Labs Laboratory Tests Test 10/07/21 19:22 10/08/21 03:44 10/08/21 06:03 10/08/21 10:58 Range/Units Glucometer 111 H 97 72 70-110 MG/DL White Blood Count 16.7 H 4.3-11.0 10^3/uL Red Blood Count 2.81 L 4.30-5.52 10^6/uL Hemoglobin 7.9 L 13.3-17.7 g/dL Hematocrit 25 L 40-54 % Mean Corpuscular Volume 88 80-99 fL Mean Corpuscular Hemoglobin 28 25-34 pg Mean Corpuscular Hemoglobin Concent 32 32-36 g/dL Red Cell Distribution Width 15.1 H 10.0-14.5 % Platelet Count 243 130-400 10^3/uL Mean Platelet Volume 10.5 9.0-12.2 fL Immature Granulocyte % (Auto) 2 % Neutrophils (%) (Auto) 90 H 42-75 % Lymphocytes (%) (Auto) 2 L 12-44 % Monocytes (%) (Auto) 6 0-12 % Eosinophils (%) (Auto) 0 0-10 % Basophils (%) (Auto) 0 0-10 % Neutrophils # (Auto) 15.0 H 1.8-7.8 10^3/uL Lymphocytes # (Auto) 0.3 L 1.0-4.0 10^3/uL Monocytes # (Auto) 1.1 H 0.0-1.0 10^3/uL Eosinophils # (Auto) 0.0 0.0-0.3 10^3/uL Basophils # (Auto) 0.0 0.0-0.1 10^3/uL Immature Granulocyte # (Auto) 0.3 H 0.0-0.1 10^3/uL Sodium Level 135 135-145 MMOL/L Potassium Level 3.7 3.6-5.0 MMOL/L Chloride Level 106 98-107 MMOL/L Carbon Dioxide Level 19 L 21-32 MMOL/L Anion Gap 10 5-14 MMOL/L Blood Urea Nitrogen 36 H 7-18 MG/DL Creatinine 0.88 0.60-1.30 MG/DL Estimat Glomerular Filtration Rate 83 BUN/Creatinine Ratio 41 Glucose Level 96 70-105 MG/DL Calcium Level 7.8 L 8.5-10.1 MG/DL Corrected Calcium 9.1 8.5-10.1 MG/DL Phosphorus Level 2.5 2.3-4.7 MG/DL Magnesium Level 2.0 1.6-2.4 MG/DL Total Bilirubin 0.4 0.1-1.0 MG/DL Aspartate Amino Transf (AST/SGOT) 36 H 5-34 U/L Alanine Aminotransferase (ALT/SGPT) 36 0-55 U/L Alkaline Phosphatase 61 40-136 U/L Total Protein 5.2 L 6.4-8.2 GM/DL Albumin 2.4 L 3.2-4.5 GM/DL Test 10/08/21 15:22 Range/Units Glucometer 80 70-110 MG/DL Diagnosis/Problems Diagnosis/Problems (1) Multifocal atrial tachycardia Assessment & Plan: I suspect he is having intermittent multifocal atrial tachycardia as opposed to atrial fibrillation. We will continue diltiazem. (2) Sinus tachycardia Assessment & Plan: Most likely related to his pneumonia with sepsis. He has been placed back on his long-acting diltiazem which he takes for hypertension. I would not treat the tachycardia aggressively or he may develop hypotension. A follow-up echocardiogram from this admission shows a normal ejection fraction. (3) Primary hypertension Status: Chronic Assessment & Plan: Continue diltiazem if his blood pressure will tolerate. He has had some intermittently low blood pressure so we will need to monitor this closely. (4) Mixed hyperlipidemia Status: Chronic Assessment & Plan: Continue atorvastatin. His LDL level is quite low. (5) Acute on chronic respiratory failure with hypoxemia Status: Acute Assessment & Plan: He has chronic obstructive pulmonary disease and uses a nebulizer at home but is not on home oxygen. He now has superimposed pneumonia. The hospitalist and eICU are managing his pulmonary disease. I suspect there is a good chance he will need home oxygen following this illness. He has not been vaccinated for Covid. I encouraged him to get vaccinated once he recovers from this current pulmonary illness. (6) Septic shock Status: Acute Assessment & Plan: Probably related to the pneumonia. He is receiving antibiotics. This has now resolved. (7) Obesity Status: Chronic Assessment & Plan: He needs to work on weight loss. SHERRI CHO JR, MD Oct 08, 2021 16:26
--- NOTE | 2021-10-08 17:15 | Progress Note - Hospitalist ---
Subjective HPI/CC On Admission Date Seen by Provider: Oct 08, 2021 Time Seen by Provider: 09:35 Bharat Webber is an 81 year old male with PMH HTN, HLD, hypothyroidism, obesity, who was transferred from [facility] with septic shock due to pneumonia. He reports having fevers and chills. He was short of breath and coughing. He denies chest pain. He denies abdominal pain. He denies nausea and vomiting. He has not had diarrhea. He denies dysuria. Subjective/Events-last exam He is feeling better. He is not short of breath. He feels weak. He denies pain. Focused Exam Lactate Level 10/05/21 22:35: Lactic Acid Level 4.38*H 10/06/21 02:10: Lactic Acid Level 2.58*H 10/06/21 04:45: Lactic Acid Level 2.03*H Objective Exam Vital Signs Vital Signs Date Time Temp Pulse Resp B/P (MAP) Pulse Ox O2 Delivery O2 Flow Rate FiO2 10/08/21 16:40 119/65 10/08/21 16:15 94 High Flow N/C 5.00 10/08/21 15:59 36.6 10/08/21 13:00 103 10/08/21 12:00 23 10/07/21 15:11 40 Capillary Refill : General Appearance: No Apparent Distress, Obese Respiratory: Lungs Clear, Normal Breath Sounds, No Respiratory Distress Cardiovascular: Regular Rate, Rhythm, No Edema, No Murmur Gastrointestinal: Normal Bowel Sounds, Non Tender, Soft Extremity: Normal Inspection, No Pedal Edema Neurologic/Psychiatric: Alert, Oriented x3, Motor Weakness Skin: Normal Color, Warm/Dry Results/Procedures Lab Laboratory Tests 10/08/21 03:44 Patient resulted labs reviewed. Imaging: Reviewed Imaging Report Assessment/Plan Assessment and Plan Assess & Plan/Chief Complaint Multifocal pneumonia Acute respiratory failure with hypoxia Oxygen requirement improving CT chest negative for PE, showed multifocal pneumonia Stop Vancomycin Continue Cefepime NSTEMI Multifocal atrial tachycardia Troponin slightly elevated, likely type II ME Cardiology following Cardizem Therapeutic Lovenox HTN HLD Hypothryoidism DVT prophylaxis: Lovenox Lactic acidosis, resolved Acute kidney injury, resolved Septic shock, resolved Diagnosis/Problems Diagnosis/Problems (1) Septic shock Status: Acute (2) Pneumonia Status: Acute (3) Acute on chronic respiratory failure with hypoxemia Status: Acute (4) Lactic acidosis Status: Acute (5) Acute kidney injury Status: Acute (6) NSTEMI (non-ST elevation myocardial infarction) Status: Acute (7) Primary hypertension Status: Chronic (8) Mixed hyperlipidemia Status: Chronic (9) Obesity Status: Chronic KIEL ESCOBAR MD Oct 08, 2021 17:15
[2021-10-08] MEDS: PANTOPRAZOLE 40 MG (PROTONIX) VIAL IV SCH (19:46)
[2021-10-08] MEDS ORDERED: TROUGH ORDER-PHARMACY XX NR (22:00)
[2021-10-08] MEDS ORDERED: DIGOXIN 0.25 MG/ML (LANOXIN) 2 ML AMP IV ONE (22:15)
[2021-10-08] MEDS ORDERED: DIGOXIN 0.25 MG/ML (LANOXIN) 2 ML AMP ONE (22:23)
[2021-10-09] MEDS ORDERED: dilTIAZem DRIP PRE-MIX 125 ML IV SCH (00:30)
[2021-10-09] MEDS ORDERED: dilTIAZem DRIP PRE-MIX 125 ML IV ONE (00:47)
[2021-10-09] MEDS: CEFEPIME INJECTION 1,000 MG in NS (IVPB) 50 ML IV SCH ×4 (00:52→20:22)
--- NOTE | 2021-10-09 00:52 | Tele-ICU Progress Note ---
Subjective Date Seen by a Provider: Oct 09, 2021 Time Seen by a Provider: 12:30 Subjective/Events-last exam This virtual visit was conducted using real time audio/video. Thank you for asking us to see this patient for respiratory insufficiency due to pna, sepsis. Was transferred to floor but returns with Afib/RVR. Also CHAZ, NSTEMI. Covid neg. Recent events: AFib/RVR PE: Resting comfortably. HR 100-110, RR 20, 108/70. O2 sat 96% on 4 L NC. HEENT: No obvious masses, adenopathy or JVD. Chest: Clear CV: Irreg. S1 S2 No murmur or added sounds. Abd: Non-tender. Bowel sounds Y. : Unremarkable. Bal Y. GLUE PLANT OPERATOR/psychiatric: Grossly intact. No obvious focal findings. Extremities: No edema. Capillary refill < 3 seconds. Skin: unremarkable. Results: Elevated WCC 16.7. Decreased Hb 7.9. CXR: R sided infilt. Available chart/ vitals / labs / images reviewed. Video assessment done using teleICU camera, rest of exam as per RN. A/P: Respiratory insufficiency: Continue present management with NC. Monitor for increasing oxygenation needs and/or need for intubation. Critical Care / Afib with RVR: Cardiology on consult. Critically ill patient. Cont. Dilt., ppi, Statin, Genie. Discussed with KATHY Gill. Asked RN to reach out to eICU if any questions or concerns later. Time spent with patient/coordination of care with other health professionals (mins):21 Sepsis Event Evaluation Height, Weight, BMI Height: '" Weight: lbs. oz. kg; 31.26 BMI Method: Focused Exam Lactate Level 10/06/21 02:10: Lactic Acid Level 2.58*H 10/06/21 04:45: Lactic Acid Level 2.03*H Exam Exam Patient acknowledged, consented, and participated in this virtual visit which was conducted using real time audio/video Vital Signs Date Time Temp Pulse Resp B/P (MAP) Pulse Ox O2 Delivery O2 Flow Rate FiO2 10/09/21 00:31 36.6 101 22 108/71 95 High Flow N/C 4.00 10/09/21 00:02 36.3 120 24 127/93 92 High Flow N/C 5.00 10/08/21 23:47 91 High Flow N/C 4.00 10/08/21 22:25 90 10/08/21 21:54 123 116/72 98 High Flow N/C 3.00 10/08/21 21:28 95 High Flow N/C 3.00 10/08/21 19:45 High Flow N/C 3.00 10/08/21 19:22 36.6 128 20 20/95 95 High Flow N/C 3.00 10/08/21 16:40 119/65 10/08/21 16:15 94 High Flow N/C 5.00 10/08/21 15:59 36.6 10/08/21 14:51 99 High Flow N/C 3.00 10/08/21 13:00 103 10/08/21 12:35 94 High Flow N/C 5.00 10/08/21 12:00 99 23 83/33 91 High Flow N/C 5.00 10/08/21 11:20 36.9 10/08/21 11:00 108 19 88 High Flow N/C 5.00 10/08/21 10:00 93 26 128/64 95 High Flow N/C 5.00 10/08/21 09:56 95 High Flow N/C 3.00 10/08/21 09:00 96 12 125/75 93 High Flow N/C 5.00 10/08/21 08:15 96 High Flow N/C 5.00 10/08/21 08:00 88 22 128/73 96 High Flow N/C 5.00 10/08/21 08:00 36.6 10/08/21 07:00 99 24 119/85 93 High Flow N/C 5.00 10/08/21 07:00 107 10/08/21 06:00 99 21 121/76 93 High Flow N/C 5.00 10/08/21 05:00 99 21 101/55 99 High Flow N/C 5.00 10/08/21 04:30 85 10/08/21 04:00 96 16 108/63 87 High Flow N/C 5.00 10/08/21 03:49 36.6 10/08/21 03:18 95 High Flow N/C 5.00 10/08/21 03:07 92 High Flow N/C 7.00 10/08/21 03:00 99 120/78 93 High Flow N/C 5.00 10/08/21 02:00 130 114/63 91 High Flow N/C 5.00 10/08/21 01:00 91 122/63 92 High Flow N/C 5.00 10/08/21 01:00 91 I & O 10/09/21 06:59 Intake Total 640 ml Output Total 1575 ml Balance -935 ml Height & Weight Height: '" Weight: lbs. oz. kg; 31.26 BMI Method: General Appearance: No Apparent Distress (See free text.), Obese HEENT: PERRL/EOMI, Pharynx Normal, Moist Mucous Membranes, Other (dry mucous membranes) Respiratory: Lungs Clear, Normal Breath Sounds, No Respiratory Distress Cardiovascular: Regular Rate, Rhythm, No Edema, No Murmur Capillary Refill: Less Than 3 Seconds Peripheral Pulses: 2+ Radial Pulses (R), 2+ Radial Pulses (L) Gastrointestinal: non tender, soft, no organomegaly, abnormal bowel sounds (hypoactive) Extremity: Normal Inspection, No Pedal Edema Neurologic/Psychiatric: Alert, Oriented x3, Motor Weakness Skin: Normal Color, Warm/Dry Results Lab Laboratory Tests 10/07/21 04:00 10/08/21 03:44 Assessment/Plan Assessment/Plan See free text. Critical Care: Critically Ill Patient MIKAYLA RICHARDS MD Oct 09, 2021 00:52
[2021-10-09] MEDS: RT-ALBUTEROL/IPRATROPIUM 3 ML (DUONEB) VIAL INH SCH ×4 (02:53→21:36)
[2021-10-09 05:28] LABS: BASOPHILS % (AUTO) 0 % (0-10); EOSINOPHILS % (AUTO) 0 % (0-10); HEMATOCRIT 24 % (40-54); HEMOGLOBIN 7.7 g/dL (13.3-17.7); LYMPHOCYTES # (AUTO) 0.6 10^3/uL (1.0-4.0); LYMPHOCYTES % (AUTO) 4 % (12-44); MEAN CORPUSCULAR HEMOGLOBIN 28 pg (25-34); MEAN CORPUSCULAR HGB CONC 32 g/dL (32-36); MEAN CORPUSCULAR VOLUME 88 fL (80-99); MEAN PLATELET VOLUME 10.2 fL (9.0-12.2); MONOCYTES # (AUTO) 1.3 10^3/uL (0.0-1.0); MONOCYTES % (AUTO) 8 % (0-12); NEUTROPHILS # (AUTO) 12.2 10^3/uL (1.8-7.8); NEUTROPHILS % (AUTO) 82 % (42-75); PLATELET COUNT 276 10^3/uL (130-400); WHITE BLOOD COUNT 14.9 10^3/uL (4.3-11.0)
[2021-10-09 05:48] LABS: ALBUMIN 2.3 GM/DL (3.2-4.5); POTASSIUM 3.2 MMOL/L (3.6-5.0)
[2021-10-09 05:49] LABS: CALCIUM 7.4 MG/DL (8.5-10.1)
[2021-10-09] MEDS: KCL 20 MEQ TAB (K-DUR) PO SCH (05:49)
[2021-10-09] MEDS: POTASSIUM CL 10MEQ/50ML IVPB 50 ML IV SCH (05:49)
[2021-10-09] MEDS: MAGNESIUM 1 GM/100 ML IVPB 100 ML IV SCH (05:49)
[2021-10-09 05:50] LABS: TOTAL PROTEIN 4.8 GM/DL (6.4-8.2)
[2021-10-09 05:52] LABS: BILIRUBIN,TOTAL 0.4 MG/DL (0.1-1.0)
[2021-10-09 05:54] LABS: CREATININE SERUM 0.83 MG/DL (0.60-1.30)
[2021-10-09] MEDS: inSUlin ASPART (NovoLOG) 1 UNIT/0.01 ML (CHARGE PER UNIT) SC SCH ×4 (05:57→21:14)
[2021-10-09] MEDS ORDERED: KCL 20 MEQ TAB (K-DUR) PO NR ×2 (08:00→10:00)
--- NOTE | 2021-10-09 08:26 | Tele-ICU Progress Note ---
Subjective Date Seen by a Provider: Oct 09, 2021 Time Seen by a Provider: 08:26 Subjective/Events-last exam Patient last night was transferred back to ICU from the medical floor because he developed a atrial fibrillation with rapid ventricular rate. Currently he is on Cardizem drip. He is wheezing for RN. He is anemic also at hemoglobin of 7.7. Chest x-ray done on admission revealed extensive right-sided pneumonia. In view of his atrial fibrillation, pneumonia will transfuse him 1 unit of packed red blood cells and decrease IV fluids to KVO. Sepsis Event Evaluation Height, Weight, BMI Height: '" Weight: lbs. oz. kg; 31.26 BMI Method: Exam Exam Patient acknowledged, consented, and participated in this virtual visit which was conducted using real time audio/video Vital Signs Date Time Temp Pulse Resp B/P (MAP) Pulse Ox O2 Delivery O2 Flow Rate FiO2 10/09/21 07:31 95 High Flow N/C 4.00 10/09/21 07:20 36.9 10/09/21 06:00 90 22 131/69 97 High Flow N/C 4.00 10/09/21 05:00 98 23 119/81 96 High Flow N/C 4.00 10/09/21 04:00 103 22 116/84 90 High Flow N/C 4.00 10/09/21 03:00 101 17 111/69 93 High Flow N/C 4.00 10/09/21 02:53 94 High Flow N/C 4.00 10/09/21 02:00 93 23 123/60 92 High Flow N/C 4.00 10/09/21 01:45 93 19 123/60 96 High Flow N/C 4.00 10/09/21 01:30 94 20 114/65 98 High Flow N/C 4.00 10/09/21 01:15 96 14 123/60 92 High Flow N/C 4.00 10/09/21 01:00 107 17 121/56 94 High Flow N/C 4.00 10/09/21 01:00 115 10/09/21 00:45 108 17 126/58 93 High Flow N/C 4.00 10/09/21 00:31 36.6 101 22 108/71 95 High Flow N/C 4.00 10/09/21 00:24 108 25 118/68 90 High Flow N/C 4.00 10/09/21 00:02 36.3 120 24 127/93 92 High Flow N/C 5.00 10/08/21 23:47 91 High Flow N/C 4.00 10/08/21 22:25 90 10/08/21 21:54 123 116/72 98 High Flow N/C 3.00 10/08/21 21:28 95 High Flow N/C 3.00 10/08/21 19:45 High Flow N/C 3.00 10/08/21 19:22 36.6 128 20 20/95 95 High Flow N/C 3.00 10/08/21 16:40 119/65 10/08/21 16:15 94 High Flow N/C 5.00 10/08/21 15:59 36.6 10/08/21 14:51 99 High Flow N/C 3.00 10/08/21 13:00 103 10/08/21 12:35 94 High Flow N/C 5.00 10/08/21 12:00 99 23 83/33 91 High Flow N/C 5.00 10/08/21 11:20 36.9 10/08/21 11:00 108 19 88 High Flow N/C 5.00 10/08/21 10:00 93 26 128/64 95 High Flow N/C 5.00 10/08/21 09:56 95 High Flow N/C 3.00 10/08/21 09:00 96 12 125/75 93 High Flow N/C 5.00 I & O 10/09/21 07:00 Intake Total 940 ml Output Total 2075 ml Balance -1135 ml Height & Weight Height: '" Weight: lbs. oz. kg; 31.26 BMI Method: General Appearance: No Apparent Distress (See free text.), Obese HEENT: PERRL/EOMI, Pharynx Normal, Moist Mucous Membranes, Other (dry mucous membranes) Respiratory: Lungs Clear, Normal Breath Sounds, No Respiratory Distress Cardiovascular: Regular Rate, Rhythm, No Edema, No Murmur Capillary Refill: Less Than 3 Seconds Peripheral Pulses: 2+ Radial Pulses (R), 2+ Radial Pulses (L) Gastrointestinal: non tender, soft, no organomegaly, abnormal bowel sounds (hypoactive) Extremity: Normal Inspection, No Pedal Edema Neurologic/Psychiatric: Alert, Oriented x3, Motor Weakness Skin: Normal Color, Warm/Dry Other comments PE PER RN Results Lab Laboratory Tests 10/08/21 03:44 10/09/21 05:15 Assessment/Plan Assessment/Plan 1. Right-sided extensive pneumonia clinically improving 2. Septic shock with a tachycardia probably due to pneumonia improving and off the Levophed. BUT NOW DVELOPED AFIB WITH RVR 3. Wheezing secondary to pneumonia however rule out fluid overload 4. New onset atrial fibrillation with rapid ventricular rate. Patient on Cardizem and cardiology following. 5. History of hypertension, hyperlipidemia and hypothyroidism. 6. Lactic acidosis and acute kidney injury improved. 7. anemia slowly worsening Recommendations 1. Continue oxygenation with nasal cannula 2. Continue vancomycin and cefepime 3. afib per cardiology 4. Decrease IV fluids to 30 cc/h 5. getserum iron and transfuse 1 unit of prbcs 6. Video visit made and assessed Critical Care: Critically Ill Patient Time spent with patient (mins): 25 Diagnosis/Problems Diagnosis/Problems (1) Lactic acidosis Status: Acute (2) NSTEMI (non-ST elevation myocardial infarction) Status: Acute (3) Acute kidney injury Status: Acute (4) Atrial fibrillation with RVR (5) Pneumonia Status: Acute (6) Septic shock Status: Acute ROBERTA ANGELA MD Oct 09, 2021 08:26
[2021-10-09] MEDS: LACTATED RINGERS 1,000 ML IV SCH (09:43)
[2021-10-09] MEDS: DOCUSATE SODIUM 100 MG (COLACE) CAP PO SCH ×2 (09:43→20:22)
[2021-10-09] MEDS: SENNOSIDES 8.6 MG (SENOKOT) TAB PO SCH ×2 (09:43→20:22)
[2021-10-09] MEDS ORDERED: predniSONE 20 MG TAB PO ONE (10:00)
[2021-10-09] MEDS: ENOXAPARIN 100 MG/1 ML (LOVENOX) SYR SC SCH (10:11)
--- NOTE | 2021-10-09 11:22 | Physical Therapy Evaluation ---
PT Evaluation-General Medical Diagnosis Admission Date Oct 05, 2021 at 22:00 Medical Diagnosis: septic shock due to pneumonia Onset Date: Oct 05, 2021 Therapy Diagnosis Therapy Diagnosis: impaired mobility, strength, endurance Precautions Precautions/Isolations: Fall Prevention, Standard Precautions Weight Bear Status Right Lower Extremity: Right Weight Bearing/Tolerated Left Lower Extremity: Left Weight Bearing/Tolerated Referral Physician: Elías Reason for Referral: Evaluation/Treatment Medical History Pertinent Medical History: Atrial Fib, HTN, Hypothroidism Reviewed History: Yes Social History Home: Single Level Current Living Status: Spouse Prior Prior Level of Function SCALE: Activities may be completed with or without assistive devices. 6-Cqxcorafsc-zimlqum completes the activity by him/herself with no assistance from a helper. 5-Set-up or Clean-up Assistance-helper sets up or cleans up; patient completes activity. [place] assists only prior to or following the activity. 4-Supervision or Touching Assistance-helper provides verbal cues and/or touching/steadying and/or contact guard assistance as patient completes activity. Assistance may be provided throughout the activity or intermittently. 3-Partial/Moderate Assistance-helper does LESS THAN HALF the effort. [place] lifts, holds or supports trunk or limbs, but provides less than half the effort. 2-Substantial/Maximal Assistance-helper does MORE THAN HALF the effort. [place] lifts or holds trunk or limbs and provides more than half the effort. 3-Ritpovulv-bebnwb does ALL the effort. Patient does none of the effort to complete the activity. Or, the assistance of 2 or more helpers is required for the patient to complete the activity. If activity was not attempted, code reason: 7-Patient Refused. 9-Not Applicable-not attempted and the patient did not perform the activity before the current illness, exacerbation or injury. 10-Not Attempted due to Environmental Limitations-(lack of equipment, weather restraints, etc.). 88-Not Attempted due to Medical Conditions or Safety Concerns. Bed Mobility: 6 Transfers (B,C,W/C): 6 Gait: 6 Stairs: 6 Indoor Mobility (Ambulation): Independent Stairs: Independent Prior Devices Use: None PT Evaluation-Current Subjective Patient in bed pre tx, agrees to PT, has no complaints of pain. Pt/Family Goals "to breathe better" Objective Patient Orientation: Person, Place, Situation Attachments: Oxygen, Bal Catheter, IV ROM/Strength ROM Lower Extremities WNL Strength Lower Extremities grossly 4-/5 BLE Integumentary/Posture Bowel Incontinence: No Bladder Incontinence: Bal Cath Sensory Vision: Functional Hearing: Functional Sensation Right Lower Extremit: Intact Sensation Left Lower Extremity: Intact Transfers Roll Left to Right (QC): 6 Sit to Lying (QC): 4 Lying to Sitting/Side of Bed(Q: 4 Patient was able to sit to the side of the bed with SBA but was only able to sit for about 1 minute before O2 drops rapidly to 82%, patient lays back down with SBA but needs assist to scoot up on bed. His O2 comes back up to 90% fairly quickly with purse lip breathing and rest. Balance Sitting Static: Good Sitting Dynamic: Good Treatment BLE supine exercises x10 (AP, HS) Assessment/Needs Patient in bed post tx with nurse call, phone, tray, all needs met, bed alarm on. Patient has impaired mobility, strength, endurance. His O2 drops rapidly with activity. Rehab Potential: Fair PT Chcf Goals Wet Finisher Wool Goals PT Wet Finisher Wool Goals Time Frame: Oct 16, 2021 Roll Left & Right (QC): 6 Sit to Lying (QC): 6 Lying-Sitting on Side/Bed(QC): 6 Sit to Stand (QC): 6 Chair/Sov-tu-Fywcv Xfer(QC): 6 Toilet Transfer (QC): 6 Walk 10 feet (QC): 5 Walk 50ft with 2 Turns (QC): 5 PT Plan Problem List Problem List: Activity Tolerance, Functional Strength, Safety, Balance, Gait, Transfer, Bed Mobility, ROM Treatment/Plan Treatment Plan: Continue Plan of Care Treatment Plan: Bed Mobility, Education, Functional Activity Tatiana, Functional Strength, Gait, Safety, Therapeutic Exercise, Transfers Treatment Duration: Oct 16, 2021 Frequency: 6 times per week Estimated Hrs Per Day: .25 hour per day Patient and/or Family Agrees t: Yes Safety Risks/Education Patient Education: Correct Positioning, Safety Issues Teaching Recipient: Patient Teaching Methods: Demonstration, Discussion Response to Teaching: Reinforcement Needed Discharge Recommendations Plan Patient will perform bed mobility and transfer training, balance and endurance training, functional strengthening, stair training, gait training, and education, to improve functional mobility and independence at home. Therapy Discharge Recommendati: Scheduled Assistance, Home & Family, Post Acute PT Time/GCodes Time In: 1048 Time Out: 1058 Total Billed Treatment Time: 10 Total Billed Treatment 1 visit RACHEL WANG PT Oct 09, 2021 11:22
--- NOTE | 2021-10-09 11:25 | Occupational Therapy Eval ---
OT Evaluation-General/PLF Medical Diagnosis Admission Date Oct 05, 2021 at 22:00 Medical Diagnosis: septic shock due to pneumonia Onset Date: Oct 05, 2021 Therapy Diagnosis Therapy Diagnosis: decreased ADL status Precautions Precautions/Isolations: Fall Prevention, Standard Precautions Referral Physician: Rena Joy Reason: Evaluation/Treatment Medical History Pertinent Medical History: Atrial Fib, HTN, Hypothroidism Current History Pt originally transferred from OSH with septic shock due to PNA. New orders received after being transferred back to ICU following episode of a-fib and pt experiencing increased SOB. Reviewed History: Yes Social History Home: Single Level Current Living Status: Spouse Pt reports IND with ADLs and functional mobility at PLOF, no AD ADL-Prior Level of Function SCALE: Activities may be completed with or without assistive devices. 7-Fkbbetxhav-sbpegiz completes the activity by him/herself with no assistance from a helper. 5-Set-up or Clean-up Assistance-helper sets up or cleans up; patient completes activity. [place] assists only prior to or following the activity. 4-Supervision or Touching Assistance-helper provides verbal cues and/or touching/steadying and/or contact guard assistance as patient completes activity. Assistance may be provided throughout the activity or intermittently. 3-Partial/Moderate Assistance-helper does LESS THAN HALF the effort. [place] lifts, holds or supports trunk or limbs, but provides less than half the effort. 2-Substantial/Maximal Assistance-helper does MORE THAN HALF the effort. [place] lifts or holds trunk or limbs and provides more than half the effort. 0-Tdzraolrf-xuogca does ALL the effort. Patient does none of the effort to complete the activity. Or, the assistance of 2 or more helpers is required for the patient to complete the activity. If activity was not attempted, code reason: 7-Patient Refused. 9-Not Applicable-not attempted and the patient did not perform the activity before the current illness, exacerbation or injury. 10-Not Attempted due to Environmental Limitations-(lack of equipment, weather restraints, etc.). 88-Not Attempted due to Medical Conditions or Safety Concerns. Self Care: Independent Functional Cognition: Independent OT Current Status Current Upper Extremity ROM LUE shoulder flexion to approx 135 degrees. All other joints WNL Upper Extremity Strength 3/5 grossly ADL-Treatment On/Off Footwear (QC): 1 Toileting Hygiene (QC): 1 Pt reports spitting up blood prior to therapy arrival. Small blood sputum present in basin. Denies pain but reports significant fatigue. Agreeable to sit EOB with encouragement. Mod a to elevate torso. Once sitting upright, quick drop in oxygen to 82%, unable to recover with cues. Returns quickly to 90% once r eturned to supine. HR range from 102-111 bpm at rest and with minimal activity. O2: 82-94%, 4L NC. Per OT note on 10/08/20, pt dependent to don/doff socks while sitting in chair. Education OT Patient Education: Correct positioning, Energy conservation, Modified ADL techniques, Purpose of tx/functional activities, Transfer techniques Teaching Recipient: Patient Teaching Methods: Discussion Response to Teaching: Verbalize Understanding, Reinforcement Needed OT Chcf Goals Chcf Goals Time Frame: Oct 26, 2021 Eating (QC): 6 Oral Hygiene (QC): 6 Toileting Hygiene (QC): 6 Shower/Bathe Self (QC): 6 Upper Body Dressing (QC): 6 Lower Body Dressing (QC): 6 On/Off Footwear (QC): 6 Additional Goals: 1-Demonstrate ADL Tasks, 2-Verbalize Understanding, 3- ImproveStrength/Tatiana 1=Demonstrate adherence to instructed precautions during ADL tasks. 2=Patient will verbalize/demonstrate understanding of assistive devices/modifications for ADL. 3=Patient will improve strength/tolerance for activity to enable patient to perform ADL's. OT Education/Plan Problem List/Assessment Assessment: Decreased Activ Tolerance, Decreased UE Strength, Impaired Bed Mobility, Impaired Funct Balance, Impaired I ADL's, Impaired Self-Care Skills, Restricted Funct UE ROM Discharge Recommendations Plan/Recommendations: Continue POC Therapy Discharge Recommendati: Post Acute OT Treatment Plan/Plan of Care Treatment,Training & Education: Yes Patient would benefit from OT for education, treatment and training to promote independence in ADL's, mobility, safety and/or upper extremity function for ADL's. Plan of Care: ADL Retraining, Functional Mobility, UE Funct Exercise/Act Treatment Duration: Oct 26, 2021 Frequency: 3 times per week (3-5 times per week) Estimated Hrs Per Day: .25 hour per day Agreement: Yes 3-5x/week Time/GCodes Start Time: 10:47 Stop Time: 10:57 Total Time Billed (hr/min): 10 Billed Treatment Time 1 visit aTmiko Mckinley OT Oct 09, 2021 11:25
[2021-10-09] MEDS ORDERED: NS IV 500 ML 500 ML IV SCH (12:45)
[2021-10-09 15:11] VITALS: BP 134/67
--- NOTE | 2021-10-09 15:22 | Progress Note - Hospitalist ---
Subjective HPI/CC On Admission Date Seen by Provider: Oct 09, 2021 Time Seen by Provider: 09:45 Bharat Webber is an 81 year old male with PMH HTN, HLD, hypothyroidism, obesity, who was transferred from [facility] with septic shock due to pneumonia. He reports having fevers and chills. He was short of breath and coughing. He denies chest pain. He denies abdominal pain. He denies nausea and vomiting. He has not had diarrhea. He denies dysuria. Subjective/Events-last exam He had issues with his breathing overnight. He is feeling better this morning. He denies fevers. He is not haivng pain. Objective Exam Vital Signs Vital Signs Date Time Temp Pulse Resp B/P (MAP) Pulse Ox O2 Delivery O2 Flow Rate FiO2 10/09/21 15:11 36.6 101 18 134/67 92 Nasal Cannula 4.00 10/07/21 15:11 40 Capillary Refill : Less Than 3 Seconds General Appearance: No Apparent Distress, Obese Respiratory: No Respiratory Distress, Wheezing Cardiovascular: Irregularly Irregular, Tachycardia Gastrointestinal: Normal Bowel Sounds, Soft Extremity: Normal Inspection, No Pedal Edema Neurologic/Psychiatric: Alert, Normal Mood/Affect Skin: Normal Color, Warm/Dry Results/Procedures Lab Laboratory Tests 10/09/21 05:15 Patient resulted labs reviewed. Imaging: Reviewed Imaging Report Assessment/Plan Assessment and Plan Assess & Plan/Chief Complaint Multifocal pneumonia Acute respiratory failure with hypoxia COPD exacerbation Oxygen requirement improving CT chest negative for PE, showed multifocal pneumonia Continue Cefepime Begin steroids MAT protocol NSTEMI AFib with RVR Troponin slightly elevated, likely type II OR Cardiology following Cardizem Therapeutic Lovenox HTN HLD Hypothryoidism DVT prophylaxis: Lovenox Lactic acidosis, resolved Acute kidney injury, resolved Septic shock, resolved Diagnosis/Problems Diagnosis/Problems (1) Septic shock Status: Acute (2) Pneumonia Status: Acute (3) Acute on chronic respiratory failure with hypoxemia Status: Acute (4) Lactic acidosis Status: Acute (5) Acute kidney injury Status: Acute (6) NSTEMI (non-ST elevation myocardial infarction) Status: Acute (7) Primary hypertension Status: Chronic (8) Mixed hyperlipidemia Status: Chronic (9) Obesity Status: Chronic (10) COPD exacerbation (11) Atrial fibrillation with RVR KIEL ESCOBAR MD Oct 09, 2021 15:22
[2021-10-09 15:32] VITALS: BP 126/74
--- NOTE | 2021-10-09 17:25 | Cardiology Progress Note ---
Progress Note-Cardiology Events since last exam Date Seen by Provider: Oct 09, 2021 Time Seen by Provider: 17:20 Events since last exam I am following him due to tachycardia. Last evening he was on the medical floor and became much more short of breath and tachycardic. I was called by the nurse. I asked her to give him some IV Lasix as well as a dose of intravenous digoxin. Later in the evening, he was transferred back to the intensive care unit. He states that his breathing is improved today but he still gets very short of breath just moving from the bed to the chair. He denies chest discomfort, palpitations, or syncope. He has persistent, mild bilateral ankle edema. Certain portions of this document may have been dictated utilizing voice recognition technology. Inherent to this technology, typographical and grammatical errors may exist. As much as I am diligent to identify and correct these mistakes, some errors may remain in the document. Vitals Last set of Vitals Signs Vital Signs 10/07/21 10/09/21 15:11 16:00 Temp 36.2 Pulse 96 Resp 24 B/P (MAP) 134/74 Pulse Ox 96 O2 Delivery High Flow N/C O2 Flow Rate 4.00 FiO2 40 Labs Labs Laboratory Tests 10/09/21 05:15 Exam Vital Signs Vital Signs Date Time Temp Pulse Resp B/P (MAP) Pulse Ox O2 Delivery O2 Flow Rate FiO2 10/09/21 16:00 96 24 134/74 96 High Flow N/C 4.00 10/09/21 16:00 36.2 10/07/21 15:11 40 Physical Exam General: Alert. No acute distress. He is obese. Eye: No xanthelasma. HENT: Normocephalic. Neck: Jugular venous pressure does not appear elevated. Respiratory: Lungs have diffusely decreased breath sounds bilaterally with scattered wheezes. Respirations are non-labored. Breath sounds are equal. Symmetrical chest wall expansion. Cardiovascular: Normal rate. Regularly irregular rhythm. No murmur. No gallop. No edema. Gastrointestinal: Soft. Normal bowel sounds. Skin: Warm. Dry. Neurologic: Alert and oriented to person, place, time. Cranial nerves 3-11 grossly intact. Psychiatric: Cooperative. Appropriate mood & affect. Labs Laboratory Tests Test 10/08/21 20:17 10/09/21 05:15 10/09/21 10:40 10/09/21 13:40 Range/Units Glucometer 98 98 70-110 MG/DL White Blood Count 14.9 H 4.3-11.0 10^3/uL Red Blood Count 2.76 L 4.30-5.52 10^6/uL Hemoglobin 7.7 L 13.3-17.7 g/dL Hematocrit 24 L 40-54 % Mean Corpuscular Volume 88 80-99 fL Mean Corpuscular Hemoglobin 28 25-34 pg Mean Corpuscular Hemoglobin Concent 32 32-36 g/dL Red Cell Distribution Width 15.5 H 10.0-14.5 % Platelet Count 276 130-400 10^3/uL Mean Platelet Volume 10.2 9.0-12.2 fL Immature Granulocyte % (Auto) 5 % Neutrophils (%) (Auto) 82 H 42-75 % Lymphocytes (%) (Auto) 4 L 12-44 % Monocytes (%) (Auto) 8 0-12 % Eosinophils (%) (Auto) 0 0-10 % Basophils (%) (Auto) 0 0-10 % Neutrophils # (Auto) 12.2 H 1.8-7.8 10^3/uL Lymphocytes # (Auto) 0.6 L 1.0-4.0 10^3/uL Monocytes # (Auto) 1.3 H 0.0-1.0 10^3/uL Eosinophils # (Auto) 0.0 0.0-0.3 10^3/uL Basophils # (Auto) 0.0 0.0-0.1 10^3/uL Immature Granulocyte # (Auto) 0.8 H 0.0-0.1 10^3/uL Sodium Level 136 135-145 MMOL/L Potassium Level 3.2 L 3.6-5.0 MMOL/L Chloride Level 106 98-107 MMOL/L Carbon Dioxide Level 22 21-32 MMOL/L Anion Gap 8 5-14 MMOL/L Blood Urea Nitrogen 30 H 7-18 MG/DL Creatinine 0.83 0.60-1.30 MG/DL Estimat Glomerular Filtration Rate 89 BUN/Creatinine Ratio 36 Glucose Level 84 70-105 MG/DL Calcium Level 7.4 L 8.5-10.1 MG/DL Corrected Calcium 8.8 8.5-10.1 MG/DL Phosphorus Level 2.0 L 2.3-4.7 MG/DL Magnesium Level 2.0 1.6-2.4 MG/DL Total Bilirubin 0.4 0.1-1.0 MG/DL Aspartate Amino Transf (AST/SGOT) 43 H 5-34 U/L Alanine Aminotransferase (ALT/SGPT) 39 0-55 U/L Alkaline Phosphatase 61 40-136 U/L Total Protein 4.8 L 6.4-8.2 GM/DL Albumin 2.3 L 3.2-4.5 GM/DL Test 10/09/21 15:56 Range/Units Glucometer 114 H 70-110 MG/DL Diagnosis/Problems Diagnosis/Problems (1) Multifocal atrial tachycardia Assessment & Plan: I suspect he is having intermittent multifocal atrial tachycardia as opposed to atrial fibrillation. We will continue oral diltiazem. I have asked the nurse to stop the intravenous diltiazem. He is now in sinus rhythm with ventricular bigeminy. Much of the tachycardia is probably been brought on by his chronic obstructive pulmonary disease with superimposed pulmonary infection. As his pulmonary status improves, the tachycardia should improve. He is now receiving a blood transfusion due to anemia. I suggest that we cut the enoxaparin back to prophylactic dose. At this point, I do not see any strong indication for oral anticoagulation. I may consider an event recorder after discharge for prolonged screening of atrial fibrillation. (2) Sinus tachycardia Assessment & Plan: Most likely related to his pneumonia with sepsis. Treatment as above. (3) Primary hypertension Status: Chronic Assessment & Plan: Continue oral diltiazem. He was previously having some low blood pressures but today his blood pressures are improved. (4) Mixed hyperlipidemia Status: Chronic Assessment & Plan: Continue atorvastatin. His LDL level is quite low. (5) Acute on chronic respiratory failure with hypoxemia Status: Acute Assessment & Plan: This is most likely due to his pulmonary conditions. He has chronic obstructive pulmonary disease and uses a nebulizer at home but is not on home oxygen. He now has superimposed pneumonia. The hospitalist and eICU are managing his pulmonary disease. I suspect there is a good chance he will need home oxygen following this illness. He has not been vaccinated for Covid. I encouraged him to get vaccinated once he recovers from this current pulmonary illness. (6) Septic shock Status: Acute Assessment & Plan: Probably related to the pneumonia. He is receiving antibiotics. This has now resolved. (7) Obesity Status: Chronic Assessment & Plan: He needs to work on weight loss. SHERRI CHO JR, MD Oct 09, 2021 17:24
[2021-10-09 18:31] VITALS: BP 94/88
[2021-10-09] MEDS: PANTOPRAZOLE 40 MG (PROTONIX) VIAL IV SCH (20:22)
[2021-10-10] MEDS: CEFEPIME INJECTION 1,000 MG in NS (IVPB) 50 ML IV SCH ×2 (01:12→06:03)
[2021-10-10] MEDS: RT-ALBUTEROL/IPRATROPIUM 3 ML (DUONEB) VIAL INH SCH ×2 (02:29→10:18)
[2021-10-10 04:53] LABS: BASOPHILS # (AUTO) 0.1 10^3/uL (0.0-0.1); BASOPHILS % (AUTO) 1 % (0-10); EOSINOPHILS % (AUTO) 0 % (0-10); HEMATOCRIT 28 % (40-54); HEMOGLOBIN 9.1 g/dL (13.3-17.7); LYMPHOCYTES # (AUTO) 0.5 10^3/uL (1.0-4.0); LYMPHOCYTES % (AUTO) 3 % (12-44); MEAN CORPUSCULAR HEMOGLOBIN 28 pg (25-34); MEAN CORPUSCULAR HGB CONC 32 g/dL (32-36); MEAN CORPUSCULAR VOLUME 87 fL (80-99); MEAN PLATELET VOLUME 10.3 fL (9.0-12.2); MONOCYTES # (AUTO) 1.2 10^3/uL (0.0-1.0); MONOCYTES % (AUTO) 7 % (0-12); NEUTROPHILS # (AUTO) 13.2 10^3/uL (1.8-7.8); NEUTROPHILS % (AUTO) 78 % (42-75); PLATELET COUNT 342 10^3/uL (130-400)
[2021-10-10 05:16] LABS: ALBUMIN 2.4 GM/DL (3.2-4.5)
[2021-10-10 05:17] LABS: CALCIUM 7.7 MG/DL (8.5-10.1)
[2021-10-10 05:19] LABS: TOTAL PROTEIN 5.3 GM/DL (6.4-8.2)
[2021-10-10 05:20] LABS: BILIRUBIN,TOTAL 0.6 MG/DL (0.1-1.0)
[2021-10-10 05:22] LABS: CREATININE SERUM 0.76 MG/DL (0.60-1.30); PHOSPHORUS 1.9 MG/DL (2.3-4.7)
[2021-10-10 05:25] LABS: MAGNESIUM 2.1 MG/DL (1.6-2.4)
[2021-10-10] MEDS: inSUlin ASPART (NovoLOG) 1 UNIT/0.01 ML (CHARGE PER UNIT) SC SCH (05:28)
[2021-10-10] MEDS: POTASSIUM CL 10MEQ/50ML IVPB 50 ML IV SCH (05:28)
[2021-10-10] MEDS: KCL 20 MEQ TAB (K-DUR) PO SCH (05:28)
[2021-10-10] MEDS: MAGNESIUM 1 GM/100 ML IVPB 100 ML IV SCH (05:28)
--- NOTE | 2021-10-10 06:24 | Diagnostic Imaging Report ---
INDICATION: Pneumonia follow-up. Comparison made with prior study from 10/06/2021. FINDINGS: There are diffuse interstitial and alveolar opacities throughout the right lung demonstrate no appreciable interval change. There is some slightly increased obscuration of the medial aspect of the left hemidiaphragm. Pleural effusions cannot be excluded. There is no pneumothorax. There is a right internal jugular central line. Heart size and mediastinal contours appear unchanged. IMPRESSION: 1. Diffuse interstitial and alveolar opacities throughout the right lung not significantly changed. There appears to be some progressive consolidation at the left base. There are possible bilateral pleural effusions. Dictated by: Dictated on workstation # [id number]
[2021-10-10] MEDS ORDERED: predniSONE 20 MG TAB PO SCH (07:00)
[2021-10-10] MEDS: DOCUSATE SODIUM 100 MG (COLACE) CAP PO SCH (08:05)
[2021-10-10] MEDS: SENNOSIDES 8.6 MG (SENOKOT) TAB PO SCH (08:05)
[2021-10-10] MEDS ORDERED: POT PHOS/NA PHOS (K-PHOS NEUTRAL) PO NR (08:28)
[2021-10-10] MEDS ORDERED: ENOXAPARIN 40 MG/0.4 ML (LOVENOX) SYR SC SCH (09:00)
--- NOTE | 2021-10-10 09:42 | Cardiology Progress Note ---
Progress Note-Cardiology Events since last exam Date Seen by Provider: Oct 10, 2021 Time Seen by Provider: 09:39 Events since last exam I am following him due to atrial arrhythmias. Initially this had appeared to be sinus tachycardia with intermittent multifocal atrial tachycardia. However, over the past 24 hours, it appears as though he may have some atrial fibrillation. He denies palpitations. He continues to be fairly short of breath but better than when he came in. He has a cough productive of sputum. He denies chest pain, palpitations, or syncope. He has mild bilateral lower extremity edema. The plan is to transfer him to inpatient rehab later today. Certain portions of this document may have been dictated utilizing voice recognition technology. Inherent to this technology, typographical and grammatical errors may exist. As much as I am diligent to identify and correct these mistakes, some errors may remain in the document. Vitals Last set of Vitals Signs Vital Signs 10/10/21 10/10/21 10/10/21 07:42 10:18 10:22 Temp 36.6 Pulse 103 Resp 22 B/P (MAP) 104/79 Pulse Ox 93 O2 Delivery High Flow N/C O2 Flow Rate 3.50 FiO2 34 Labs Labs Laboratory Tests 10/10/21 04:35 Exam Vital Signs Vital Signs Date Time Temp Pulse Resp B/P (MAP) Pulse Ox O2 Delivery O2 Flow Rate FiO2 10/10/21 10:22 36.6 103 93 34 10/10/21 10:18 High Flow N/C 3.50 10/10/21 07:42 22 104/79 Physical Exam General: Alert. No acute distress. He is obese. Eye: No xanthelasma. HENT: Normocephalic. Neck: Jugular venous pressure does not appear elevated. Respiratory: Lungs are clear to auscultation but markedly reduced breath sounds in all lung jo. Respirations are non-labored. Breath sounds are equal. Symmetrical chest wall expansion. Cardiovascular: Normal rate. Irregular rhythm. No murmur. No gallop. 1+ b ilateral pretibial edema. Gastrointestinal: Soft. Normal bowel sounds. Skin: Warm. Dry. Neurologic: Alert and oriented to person, place, time. Cranial nerves 3-11 grossly intact. Psychiatric: Cooperative. Appropriate mood & affect. Labs Laboratory Tests Test 10/09/21 15:56 10/09/21 20:27 10/10/21 04:35 10/10/21 08:25 Range/Units Glucometer 114 H 113 H 70-110 MG/DL White Blood Count 17.0 H 4.3-11.0 10^3/uL Red Blood Count 3.26 L 4.30-5.52 10^6/uL Hemoglobin 9.1 L 13.3-17.7 g/dL Hematocrit 28 L 40-54 % Mean Corpuscular Volume 87 80-99 fL Mean Corpuscular Hemoglobin 28 25-34 pg Mean Corpuscular Hemoglobin Concent 32 32-36 g/dL Red Cell Distribution Width 15.6 H 10.0-14.5 % Platelet Count 342 130-400 10^3/uL Mean Platelet Volume 10.3 9.0-12.2 fL Immature Granulocyte % (Auto) 11 % Neutrophils (%) (Auto) 78 H 42-75 % Lymphocytes (%) (Auto) 3 L 12-44 % Monocytes (%) (Auto) 7 0-12 % Eosinophils (%) (Auto) 0 0-10 % Basophils (%) (Auto) 1 0-10 % Neutrophils # (Auto) 13.2 H 1.8-7.8 10^3/uL Lymphocytes # (Auto) 0.5 L 1.0-4.0 10^3/uL Monocytes # (Auto) 1.2 H 0.0-1.0 10^3/uL Eosinophils # (Auto) 0.0 0.0-0.3 10^3/uL Basophils # (Auto) 0.1 0.0-0.1 10^3/uL Immature Granulocyte # (Auto) 1.9 H 0.0-0.1 10^3/uL Sodium Level 137 135-145 MMOL/L Potassium Level 4.0 3.6-5.0 MMOL/L Chloride Level 106 98-107 MMOL/L Carbon Dioxide Level 21 21-32 MMOL/L Anion Gap 10 5-14 MMOL/L Blood Urea Nitrogen 22 H 7-18 MG/DL Creatinine 0.76 0.60-1.30 MG/DL Estimat Glomerular Filtration Rate 99 BUN/Creatinine Ratio 29 Glucose Level 99 70-105 MG/DL Calcium Level 7.7 L 8.5-10.1 MG/DL Corrected Calcium 9.0 8.5-10.1 MG/DL Phosphorus Level 1.9 L 2.3-4.7 MG/DL Magnesium Level 2.1 1.6-2.4 MG/DL Total Bilirubin 0.6 0.1-1.0 MG/DL Aspartate Amino Transf (AST/SGOT) 38 H 5-34 U/L Alanine Aminotransferase (ALT/SGPT) 35 0-55 U/L Alkaline Phosphatase 72 40-136 U/L Total Protein 5.3 L 6.4-8.2 GM/DL Albumin 2.4 L 3.2-4.5 GM/DL Stool Occult Blood Immunoassay NEGATIVE NEGATIVE Test 10/10/21 10:51 10/10/21 13:12 Range/Units Glucometer 166 H 70-110 MG/DL Lab Scanned Report Transfusion Reaction Form [id number] Diagnosis/Problems Diagnosis/Problems (1) Paroxysmal atrial fibrillation Assessment & Plan: He was initially alternating between sinus tachycardia and multifocal atrial tachycardia. However, over the past 24 hours, now he appears to be in probable atrial fibrillation. I will start him on rivaroxaban for stroke prophylaxis. When he is transferred to inpatient rehab, I would prefer him to stay on telemetry at least for the first few days if possible. He should continue on oral diltiazem for rate control. (2) Multifocal atrial tachycardia Assessment & Plan: As above, he was initially having what appeared to be multifocal atrial tachycardia. However, now he actually appears to have atrial fibrillation. We will proceed as above. (3) Primary hypertension Status: Chronic Assessment & Plan: Continue oral diltiazem. He was previously having some low blood pressures but today his blood pressures are improved. (4) Mixed hyperlipidemia Status: Chronic Assessment & Plan: Continue atorvastatin. His LDL level is quite low. (5) Acute on chronic respiratory failure with hypoxemia Status: Acute Assessment & Plan: This is most likely due to his pulmonary conditions. He has chronic obstructive pulmonary disease and uses a nebulizer at home but is not on home oxygen. He now had superimposed pneumonia. His pulmonary status has improved and he will be transferred to inpatient rehab. (6) Septic shock Status: Acute Assessment & Plan: Probably related to the pneumonia. He received antibiotics. This has now resolved. (7) Obesity Status: Chronic Assessment & Plan: He needs to work on weight loss. SHERRI CHO JR, MD Oct 10, 2021 09:42
[2021-10-10 10:22] VITALS: BP 104/79
[2021-10-10] MEDS ORDERED: RT-ALBUTEROL/IPRATROPIUM 3 ML (DUONEB) VIAL INH SCH (14:00)
[2021-10-10] MEDS ORDERED: RIVAROXABAN 20 MG TABLET (XARELTO) PO SCH (17:00)
--- NOTE | 2021-10-11 09:08 | Discharge Summary ---
Discharge Summary Hospital Course Problems/Dx: (1) Septic shock Status: Acute (2) Pneumonia Status: Acute (3) Acute on chronic respiratory failure with hypoxemia Status: Acute (4) Paroxysmal atrial fibrillation Status: Acute (5) Multifocal atrial tachycardia Status: Acute (6) Primary hypertension Status: Chronic (7) Mixed hyperlipidemia Status: Chronic (8) Obesity Status: Chronic Hospital Course Date of Admission: Oct 05, 2021 at 22:00 Admission Diagnosis : Septic shock due to pneumonia Family Physician/Provider: Molly Raymundo MD Date of Discharge: 10/10/21 Discharge Diagnosis: Septic shock due to pneumonia Hospital Course: Bharat Webber is an 81 year old male who was admitted with septic shock due to pneumonia. He was requiring high flow Vapotherm. He was initially in the ICU. He was treated with fluids and antibiotics and improved. He was still requiring some oxygen at the time of discharge. His course was complicated by arrhythmias. He was initially thought to have multifocal atrial tachycardia, but was later diagnosed with atrial fibrillation. He was started on Cardizem and Xarelto. He was also found to have a COPD exacerbation and was treated with steroids and breathing treatments. He was debilitated and was discharged to inpatient rehab for ongoing therapy needs. Labs and Pending Lab Test: Laboratory Tests 10/10/21 10:51: Glucometer 166H 10/10/21 13:12: Lab Scanned Report Transfusion Reaction Form Microbiology 10/06/21 Urine Culture - Final, Complete NO GROWTH 10/06/21 Gram Stain - Final, Complete 10/06/21 Sputum Culture - Final, Complete Gram Pos Mixed Bacterial Rosi 10/05/21 Blood Culture - Preliminary, Resulted No growth Home Meds Active Reported Prednisone 10 Mg Tab 10 Mg PO DAILY FILLED 09-05-2021 #42/28 DAY SUPPLY Levothyroxine Sodium 112 Mcg Tablet 112 Mcg PO DAILY Diltiazem ER (Diltiazem HCl) 180 Mg Capsule.er 180 Mg PO DAILY Pepcid (Famotidine) 20 Mg Tablet 20 Mg PO DAILY Aspirin 81 Mg Tab.chew 81 Mg PO DAILY Atorvastatin Calcium 40 Mg Tablet 40 Mg PO HS Assessment/Pt Instructions Transferred to inpatient rehab for ongoing therapy needs Discharge Planning: <30 minutes discharge planning Discharge Instructions Discharge Diet: Low Sodium Diet Activity as Tolerated: Yes Consultations Cardiology, TeleICU Discharge Physical Examination Vital Signs Vital Signs Date Time Temp Pulse Resp B/P (MAP) Pulse Ox O2 Delivery O2 Flow Rate FiO2 10/10/21 10:22 36.6 103 93 34 10/10/21 10:18 High Flow N/C 3.50 10/10/21 07:42 22 104/79 General Appearance: No Apparent Distress, Chronically ill, Obese Respiratory: No Respiratory Distress, Decreased Breath Sounds, Wheezing Cardiovascular: No Murmur, Irregularly Irregular Gastrointestinal: Normal Bowel Sounds, Non Tender, Soft Extremity: Normal Inspection, Non Tender, No Pedal Edema Skin: Normal Color, Warm/Dry Neurologic/Psychiatric: Alert, Oriented x3, Normal Mood/Affect, Motor Weakness Allergies: Coded Allergies: Penicillins (Unverified Allergy, Mild, RASH, 12/23/06) Copy Copies To 1: MOLLY RAYMUNDO MD Discharge Summary Date of Admission Oct 05, 2021 at 22:00 Date of Discharge Oct 10, 2021 at 11:31 Discharge Date: Oct 10, 2021 Discharge Time: 11:31 Admission Diagnosis Septic shock Consults/Procedures Consulations Cardiology, TeleICU Discharge Diagnosis Septic shock Multifocal pneumonia Acute respiratory failure with hypoxia COPD exacerbation NSTEMI AFib with RVR (1) Septic shock Status: Acute (2) Pneumonia Status: Acute (3) Paroxysmal atrial fibrillation Status: Acute (4) Multifocal atrial tachycardia Status: Acute (5) Primary hypertension Status: Chronic (6) Mixed hyperlipidemia Status: Chronic (7) Acute on chronic respiratory failure with hypoxemia Status: Acute (8) Obesity Status: Chronic Assessment & Plan: He needs to work on weight loss. (9) COPD exacerbation KIEL ESCOBAR MD Oct 11, 2021 09:06
== END 2021-10-10 11:31 | DRG 871 ==
LOC: ICU 22:00 → 4TH 10-08 16:56 → ICU 10-09 00:21 → CSD 10-09 18:51
PROVIDERS: ADMIT Internal Medicine; ATTEND Internal Medicine
PROC: 02HV33Z Insertion of Infusion Device into Superior Vena Cava, Percutaneous Approach (ICD-10-PCS; principal; 2021-10-06)
DX: A41.9 Sepsis, unspecified organism (principal); R65.21 Severe sepsis with septic shock; J18.9 Pneumonia, unspecified organism; J96.21 Acute and chronic respiratory failure with hypoxia; I21.4 Non-ST elevation (NSTEMI) myocardial infarction; I47.1 Supraventricular tachycardia; J44.0 Chronic obstructive pulmonary disease with (acute) lower respiratory infection; J44.1 Chronic obstructive pulmonary disease with (acute) exacerbation; E87.2 Acidosis; N17.9 Acute kidney failure, unspecified; I48.0 Paroxysmal atrial fibrillation; I10 Essential (primary) hypertension; Z20.822 Contact with and (suspected) exposure to COVID-19; E78.2 Mixed hyperlipidemia; E66.9 Obesity, unspecified; E03.9 Hypothyroidism, unspecified; E78.00 Pure hypercholesterolemia, unspecified; D63.8 Anemia in other chronic diseases classified elsewhere; I87.2 Venous insufficiency (chronic) (peripheral); I95.9 Hypotension, unspecified; E87.6 Hypokalemia; Z68.31 Body mass index [BMI] 31.0-31.9, adult; Z87.891 Personal history of nicotine dependence
CPT/HCPCS: 36415; 71045; 71275; 80048; 80053; 80061; 81000; 82010; 82274; 82533; 82550; 82728; 82947; 83540; 83550; 83605; 83735; 83880; 84100; 84145; 84484; 85007; 85025; 85027; 85379; 85652; 86141; 86850; 86900; 86901; 86920; 87040; 87070; 87081; 87088; 87205; 87636; 93005; 93306; 94640; 94760

== ENCOUNTER 2021-10-09 16:15 | Inpatient (IN) | payer MEDICARE, OTHER ==
[~2021-10-09] VITALS: Ht 172.7 cm; Wt 98.7 kg
[~2021-10-09 16:15] MED LIST changes: +ASPI-999 PO; +DILT180C82 PO; +FAMO-119 PO; +LEVO112T55 PO; +PRD10T PO
[2021-10-10] MEDS ORDERED: ONDANSETRON 4 MG (ZOFRAN) ORAL DISSOLVE TAB PO PRN ×2 (10:30→12:30)
[2021-10-10] MEDS ORDERED: ACETAMINOPHEN 325 MG TABLET PO PRN ×2 (10:30→12:30)
[2021-10-10] MEDS ORDERED: LOPERAMIDE 2 MG (IMODIUM) TABLET PO PRN (10:30)
[2021-10-10] MEDS ORDERED: ALPRAZolam 0.25 MG (XANAX) TAB PO PRN (10:30)
[2021-10-10] MEDS ORDERED: diphenhydrAMINE 25 MG TAB (BENADRYL) PO PRN (10:30)
[2021-10-10] MEDS ORDERED: MELATONIN 3 MG TABLET PO PRN ×2 (10:30→12:30)
[2021-10-10] MEDS ORDERED: FLEET ENEMA ADULT 1 EA BTL PR PRN (10:30)
[2021-10-10] MEDS ORDERED: DOCUSATE SODIUM 100 MG (COLACE) CAP PO PRN (10:30)
[2021-10-10] MEDS ORDERED: guaiFENesin/CODEINE (ROBITUSSIN AC) 10ML UDC PO PRN (10:30)
[2021-10-10] MEDS ORDERED: CALCIUM CARBONATE 500 MG (TUMS) TAB.CHEW PO PRN (10:30)
[2021-10-10 11:35] VITALS: BP 143/61
--- NOTE | 2021-10-10 12:25 | PM&R Post Admission Assessment ---
PM&R HP Date of Visit: Oct 10, 2021 Time of Visit: 11:30 History of Present Illness CC: Debility HPI: This is an 81 yr old clinic pt of Dr. Flores who was transferred from [facility] to [facility] for higher level of care due to septic shock from pneumonia. MHx of hypertension, hyperlipidemia and hypothyroidism. Also had new onset atrial fibrillation with RVR and elevated troponin from type 2 [place]. Cardiology has been consulted. Pt still remains on antibiotic Cefepime and IV steroids. We will discontinue the catheter tomorrow and we will work hard on regaining enough function to discharge back with his for independent living. Past Walodqx-Esoubo-Vgdxan Hx Past Med/Social Hx: Reviewed Nursing Past Med/Soc Hx, Reviewed and Corrections made Patient Social History Marrital Status: Employed/Student: retired Alcohol Use: Denies Use Smoking Status: Former Smoker Past Medical History Respiratory: Pneumonia Cardiac: Atrial Fibrillation, High Cholesterol, Hypertension Endocrine: Hypothyroidsim Family History No Pertinent Family Hx, Diabetes PM&R Allergy/Meds/Data Review Allergies Coded Allergies: Penicillins (Unverified Allergy, Mild, RASH, 12/23/06) Home Medications Scheduled Aspirin (Aspirin), 81 MG PO DAILY, (Reported) Atorvastatin Calcium (Atorvastatin Calcium), 40 MG PO HS, (Reported) Diltiazem HCl (Diltiazem ER), 180 MG PO DAILY, (Reported) Famotidine (Pepcid), 20 MG PO DAILY, (Reported) Levothyroxine Sodium (Levothyroxine Sodium), 112 MCG PO DAILY, (Reported) Prednisone (Prednisone), 10 MG PO DAILY, (Reported) Discontinued Medications Diltiazem HCl (Diltiazem 24Hr ER), 180 MG PO DAILY, (Reported) Discontinued Reason: Duplicate Order Levothyroxine Sodium (Levothyroxine Sodium), 125 MCG PO DAILY, (Reported) Discontinued Reason: Duplicate Order Current Medications Current Medications Reviewed Review of Systems Constitutional: see HPI, malaise, weakness EENTM: no symptoms reported Respiratory: dyspnea on exertion Cardiovascular: no symptoms reported Gastrointestinal: no symptoms reported Genitourinary: no symptoms reported Musculoskeletal: back pain Skin: no symptoms reported Psychiatric/Neurological: Depressed All Other Systems Reviewed Negative Unless Noted: Yes Physical Exam Physical Exam Vital Signs Vital Signs - First Documented 10/10/21 11:35 Temp 36.3 Pulse 89 Resp 22 B/P (MAP) 143/61 (88) Pulse Ox 96 O2 Delivery High Flow N/C Capillary Refill : Height, Weight, BMI Height: '" Weight: lbs. oz. kg; 31.34 BMI Method: General Appearance: WD/WN, Anxious, Chronically ill, Mild Distress Eyes: Bilateral Eye Normal Inspection, Bilateral Eye PERRL HEENT: PERRL/EOMI, Normal ENT Inspection, Pharynx Normal Neck: Full Range of Motion, Normal Inspection, Non Tender, Supple, Carotid Bruit Respiratory: Chest Non Tender, No Respiratory Distress, Accessory Muscle Use, Decreased Breath Sounds, Rales, Wheezing Cardiovascular: Regular Rate, Rhythm, No Edema, No Gallop, No JVD, No Murmur, Normal Peripheral Pulses Gastrointestinal: Normal Bowel Sounds, No Organomegaly, No Pulsatile Mass, Non Tender, Soft Back: Normal Inspection, No CVA Tenderness, No Vertebral Tenderness Extremity: Normal Capillary Refill, Normal Inspection, Normal Range of Motion, Non Tender, No Calf Tenderness, No Pedal Edema Neurologic/Psychiatric: Alert, Oriented x3, No Motor/Sensory Deficits, Normal Mood/Affect Skin: Normal Color, Warm/Dry Lymphatic: No Adenopathy PM&R Medical Assessment & Plan REHAB/MEDICAL ASSESSMENT AND PLAN: REHAB IMPAIRMENT GROUP: Debility ETIOLOGIC DIAGNOSIS: Debility The comorbidities that impact the patients function and/or functional outcome by: new onset AF, active wheezing, advanced age REHAB PLAN: The patient is being admitted to our comprehensive inpatient rehabilitation facility and can tolerate the intensity of service consisting of at least: 180 minutes of therapy a day, 5 out of 7 days a week Rehab treatment will consist of: PT OT will focus on regaining function with use of AD in order to return home with for independent living The patient/family has a good understanding of our discharge process and will benefit from an interdisciplinary inpatient rehabilitation program. The patient has potential to make improvement and is in need of at least two of the following multidisciplinary therapies including but not limited to physical, occupational, speech, and prosthetics and orthotics. Additionally the patient will need services from respiratory, nutritional services, wound care, psychology, etc. (Customize this to each patient). Given the patients complex condition and risk of further medical complications, rehabilitation services cannot be safely or effectively provided at a lower level of care such as a senior living facility. BARRIERS TO DISCHARGE: Advanced age ESTIMATED LOS: 10 days DISPOSITION: Home RELEVANT CHANGES SINCE PREADMISSION SCREENING: I have compared the patients medical and functional status at the time of the preadmission screening and there are: no changes PROGNOSIS: Fair REHABILITATION GOALS: 1. PT OT will focus on regaining function with use of AD in order to return home with for independent living All the above goals were reviewed with the patient and he/she is in agreement. By signing this document, I acknowledge that I have personally performed a full physical examination on this patient within 24 hours of admission to this [facility] rehabilitation facility and have determined the patient to be able to tolerate the above course of treatment at an intensive level for a reasonable period of time. I will be completing a detailed individualized Plan of Care for this patient by day #4 of the patients stay based upon the Preadmission Screen, the Post-Admission Evaluation, and the therapy evaluations. Admission Dx/Comorbidities: (1) Debility ICD Codes: R53.81 - Other malaise (2) Septic shock Status: Acute ICD Codes: A41.9 - Sepsis, unspecified organism; R65.21 - Severe sepsis with septic shock (3) Pneumonia Status: Acute ICD Codes: J18.9 - Pneumonia, unspecified organism (4) Primary hypertension Status: Chronic ICD Codes: I10 - Essential (primary) hypertension (5) Mixed hyperlipidemia Status: Chronic ICD Codes: E78.2 - Mixed hyperlipidemia (6) Obesity Status: Chronic ICD Codes: E66.9 - Obesity, unspecified (7) Paroxysmal atrial fibrillation ICD Codes: I48.0 - Paroxysmal atrial fibrillation (8) COPD exacerbation ICD Codes: J44.1 - Chronic obstructive pulmonary disease with (acute) exacerbation (9) Atrial fibrillation with RVR ICD Codes: I48.91 - Unspecified atrial fibrillation (10) Acute kidney injury Status: Acute ICD Codes: N17.9 - Acute kidney failure, unspecified (11) NSTEMI (non-ST elevation myocardial infarction) Status: Acute ICD Codes: I21.4 - Non-ST elevation (NSTEMI) myocardial infarction (12) Acute on chronic respiratory failure with hypoxemia Status: Acute ICD Codes: J96.21 - Acute and chronic respiratory failure with hypoxia Assessment/Plan Assessment and Plan Assess & Plan/Chief Complaint Assessment: Debility New onset AF w/recent RVR Active wheezing AECOPD Hypoxia PNA s/p septic shock CHAZ HTN Hypoxemia Plan: Monitor closely IV steroids IV abx DC cath tomorrow Supportive care FRANCISCO BHAKTA DO Oct 10, 2021 12:25
[2021-10-10] MEDS ORDERED: ANTACID SUSP 30 ML UDC (MYLANTA) PO PRN (12:30)
[2021-10-10] MEDS ORDERED: ONDANSETRON 4 MG/2 ML (SDV) Z0FRAN IV PRN (12:30)
--- NOTE | 2021-10-10 12:44 | Physical Therapy Evaluation ---
PT Evaluation-General Medical Diagnosis Admission Date Oct 10, 2021 at 11:20 Medical Diagnosis: septic shock due to pneumonia Onset Date: Oct 05, 2021 Therapy Diagnosis Therapy Diagnosis: impaired mobility, strength, endurance Precautions Precautions/Isolations: Fall Prevention Weight Bear Status Right Lower Extremity: Right Weight Bearing/Tolerated Left Lower Extremity: Left Weight Bearing/Tolerated Referral Physician: Jody Chase DO Reason for Referral: Evaluation/Treatment Medical History Pertinent Medical History: Atrial Fib, HTN, Hypothroidism Reviewed History: Yes Social History Home: Single Level Current Living Status: Spouse Prior Prior Level of Function SCALE: Activities may be completed with or without assistive devices. 5-Knmrozeuou-fnbasdn completes the activity by him/herself with no assistance from a helper. 5-Set-up or Clean-up Assistance-helper sets up or cleans up; patient completes activity. [place] assists only prior to or following the activity. 4-Supervision or Touching Assistance-helper provides verbal cues and/or touching/steadying and/or contact guard assistance as patient completes activity. Assistance may be provided throughout the activity or intermittently. 3-Partial/Moderate Assistance-helper does LESS THAN HALF the effort. [place] lifts, holds or supports trunk or limbs, but provides less than half the effort. 2-Substantial/Maximal Assistance-helper does MORE THAN HALF the effort. [place] lifts or holds trunk or limbs and provides more than half the effort. 8-Znjbxcbmf-ifolhp does ALL the effort. Patient does none of the effort to complete the activity. Or, the assistance of 2 or more helpers is required for the patient to complete the activity. If activity was not attempted, code reason: 7-Patient Refused. 9-Not Applicable-not attempted and the patient did not perform the activity before the current illness, exacerbation or injury. 10-Not Attempted due to Environmental Limitations-(lack of equipment, weather restraints, etc.). 88-Not Attempted due to Medical Conditions or Safety Concerns. Bed Mobility: 6 Transfers (B,C,W/C): 6 Gait: 6 Stairs: 6 Indoor Mobility (Ambulation): Independent Stairs: Independent Prior Devices Use: None PT Evaluation-Current Subjective Patient in bed pre tx, agrees to PT, has no complaints of pain. Will be co-treating with OT for part of tx due to poor patient mobility, strength, endurance, severe SOB and O2 drop with activity, coordinate UE and LE during activity, safety and reduce risk of falls. Pt/Family Goals to be independent at home Objective Patient Orientation: Person, Place, Situation Attachments: Oxygen, Bal Catheter, IV ROM/Strength ROM Lower Extremities WNL Strength Lower Extremities grossly 4-/5 BLE Sensory Vision: Functional Hearing: Functional Sensation Right Lower Extremit: Intact Sensation Left Lower Extremity: Intact Transfers Roll Left & Right (QC): 6 Sit to Lying (QC): 3 Lying to Sitting/Side of Bed(Q: 3 Sit to Stand (QC): 4 Chair/Irx-zt-Txilx Xfer(QC): 4 Toilet Transfer (QC): 4 Car Transfer (QC): 3 Patient performs rolling with independence, supine <-> sit min assist, sit <-> stand CGA, transfers CGA, car transfer mod assist. Patient needs frequent cues for positioning and hand placement. Gait Does the Patient Walk?: Yes Mode of Locomotion: Walk Anticipated Mode of Locomotion: Walk Walk 10 feet (QC): 4 Walk 50 ft with 2 Turns(QC): 4 Walk 150 ft (QC): 88 Walking 10ft/uneven surface-QC: 88 Distance: 50' Gait Assistive Device: FWW Comments/Gait Description Patient can ambulate 50' with a rolling walker with CGA (including 50' with at least 2 turns of 90 degrees). Uneven surface not attempted due to severe SOB just ambulating over a level surface. Wheelchair Training Wheel 50 ft with 2 turns (QC): 1 Wheel 150 ft (QC): 1 Stairs 1 Step (curb) (QC): 88 4 Steps (QC): 88 12 Steps (QC): 88 Balance Sitting Static: Normal Sitting Dynamic: Normal Standing Static: Fair Standing Dynamic: Fair Picking up an Object (QC): 88 Treatment PT performed bed mobility and transfers, ambulation, standing and positioning during bathing/dressing, OT performed bathing/dressing, UE positioning and safety during ambulation and transfers. Assessment/Needs Patient has impaired mobility, strength, endurance. Patient in recliner post tx with nurse call, phone, tray, all needs met. Patient's O2 slowly dropped during tx, increased his O2 to 6L and it did come back up to 90% (nurse notified), patient gets very SOB, has course breathing during any activity. Rehab Potential: Fair PT Short Term Goals Short Term Goals Time Frame: Oct 17, 2021 Roll Left & Right: 6 Sit to lyin Lying to sitting on side of be: 4 Sit to stand: 4 (SBA) Chair/wfj-gh-mhfjd transfer: 4 (SBA) Walk 10 feet: 4 Walk 50 feet with two turns: 4 Walk 150 feet: 4 PT Vp Construction Goals Vp Construction Goals PT Vp Construction Goals Time Frame: Oct 31, 2021 Roll Left & Right (QC): 6 Sit to Lying (QC): 6 Lying-Sitting on Side/Bed(QC): 6 Sit to Stand (QC): 6 Chair/Dqa-jr-Sjkhh Xfer(QC): 6 Toilet Transfer (QC): 6 Car Transfer (QC): 3 Does the Patient Walk: Yes Walk 10 feet (QC): 6 Walk 50ft with 2 Turns (QC): 6 Walk 150 ft (QC): 6 Walking 10ft on Uneven Surface: 4 1 Step (curb) (QC): 4 4 Steps (QC): 4 12 Steps (QC): 88 Picking up an Object (QC): 4 Wheel 50 feet with 2 turns (QC: 9 Wheel 150 feet: 9 PT Plan Problem List Problem List: Activity Tolerance, Functional Strength, Safety, Balance, Gait, Transfer, Bed Mobility, ROM Treatment/Plan Treatment Plan: Continue Plan of Care Treatment Plan: Bed Mobility, Education, Functional Activity Tatiana, Functional Strength, Group Therapy, Gait, Safety, Therapeutic Exercise, Transfers Treatment Duration: Oct 31, 2021 Frequency: At least 5 of 7 days/Wk (IRF) Estimated Hrs Per Day: 1.5 hours per day Patient and/or Family Agrees t: Yes Safety Risks/Education Patient Education: Gait Training, Transfer Techniques, Correct Positioning, Safety Issues Teaching Recipient: Patient Teaching Methods: Demonstration, Discussion Response to Teaching: Reinforcement Needed Discharge Recommendations Plan Patient will perform bed mobility and transfer training, balance and endurance training, functional strengthening, stair training, gait training, and education, to improve functional mobility and independence at home. Therapy Discharge Recommendati: Scheduled Assistance, Home & Family, Post Acute PT Time/GCodes Time In: 1120 Time Out: 1215 Total Billed Treatment Time: 45 Total Billed Treatment 1 visit EVM 10' FA 35' PT eval from [id number], OT eval from [id number], co-treat from [id number] RACHEL KAPOOR PT Oct 10, 2021 12:44
--- NOTE | 2021-10-10 12:49 | Occupational Therapy Eval ---
OT Evaluation-General/PLF Medical Diagnosis Admission Date Oct 10, 2021 at 11:20 Medical Diagnosis: septic shock due to pneumonia Onset Date: Oct 05, 2021 Therapy Diagnosis Therapy Diagnosis: reduced adl/iadl status, oxygen dependent, impaired activity tolerance Precautions Precautions/Isolations: Fall Prevention, Standard Precautions Referral Physician: Rena Joy Reason: Evaluation/Treatment Medical History Pertinent Medical History: Atrial Fib, HTN, Hypothroidism Current History Pt originally transferred from OSH with septic shock due to PNA. New orders received after being transferred back to ICU following episode of a-fib and pt experiencing increased SOB. Reviewed History: Yes Social History Home: Single Level Current Living Status: Spouse Pt reports living with his and son in a single story home. He states he was independent with ADLs and shared IADL responsibilities with his spouse. He did not use any AD prior to admission. ADL-Prior Level of Function SCALE: Activities may be completed with or without assistive devices. 9-Jqlyzfmbja-maeqcxy completes the activity by him/herself with no assistance from a helper. 5-Set-up or Clean-up Assistance-helper sets up or cleans up; patient completes activity. [place] assists only prior to or following the activity. 4-Supervision or Touching Assistance-helper provides verbal cues and/or touching/steadying and/or contact guard assistance as patient completes activity. Assistance may be provided throughout the activity or intermittently. 3-Partial/Moderate Assistance-helper does LESS THAN HALF the effort. [place] lifts, holds or supports trunk or limbs, but provides less than half the effort. 2-Substantial/Maximal Assistance-helper does MORE THAN HALF the effort. [place] lifts or holds trunk or limbs and provides more than half the effort. 7-Ygqgwvric-vzkbhb does ALL the effort. Patient does none of the effort to complete the activity. Or, the assistance of 2 or more helpers is required for the patient to complete the activity. If activity was not attempted, code reason: 7-Patient Refused. 9-Not Applicable-not attempted and the patient did not perform the activity before the current illness, exacerbation or injury. 10-Not Attempted due to Environmental Limitations-(lack of equipment, weather restraints, etc.). 88-Not Attempted due to Medical Conditions or Safety Concerns. DME/Equipment: Bath Chair, Grab Bars, Tall Toilet, Tub/Shower Drive Self: Yes OT Current Status Subjective Denies pain. SOA notable with minimal exertion. Co-treat with PT for part of session secondary to severely impaired activity tolerance, increase in oxygen needs and need of 2 skilled clinicians to progress independence with adls and mobility. Appearance Pt left sitting in recliner, all needs within reach. Mental Status/Objective Patient Orientation: Person, Place, Situation Attachments: Bal Catheter, IV, Oxygen, Telemetry Current Upper Extremity ROM LUE shoulder flexion to approx 135 degrees. All other joints WNL Upper Extremity Strength 3/5 grossly ADL-Treatment Eating (QC): 5 Oral Hygiene (QC): 7 Shower/Bathe Self (QC): 3 Upper Body Dressing (QC): 10 Lower Body Dressing (QC): 3 On/Off Footwear (QC): 3 Toileting Hygiene (QC): 1 (Bal catheter ) Supine>sit: Mod a to elevate torso. Labored breathing, Oxygen spot checked throughout session; 80-95%. HR 60-110 bpm. Cues for PLB, extra time to recover. SOA with minimal exertion. Pt unable to tolerate full shower at this time, thus seated sponge bath performed at w/c level. Extra effort to lift/cross foot over contralateral knee. Once positioned, pt able to doff socks and wash feet. Min a to don R sock due to desat into low 80's. Significant time required to complete LB dress/bath due to needing several rest breaks for recover. Oxygen increased from 4 to 6L during activity. Assist required to thread RLE into brief, pt able to thread left. CGA to stand. In standing, min a for balance needed as he stood to wash diana area with zero UE support. Dependent to wash backside due to increased SOA with prolong standing. Pt able to manage briefs over hips with steading assist only. Upper body bathing/dressing not addressed due to time restraint and IV infusing. Pt will benefit from instruction on adaptive equipment/methods in order to help conserve energy. Education OT Patient Education: Correct positioning, Energy conservation, Modified ADL techniques, Progress toward Goal/Update tx plan, Purpose of tx/functional activities, Rehab process, Safety issues, Transfer techniques, W/C management Teaching Recipient: Patient Teaching Methods: Demonstration, Discussion Response to Teaching: Verbalize Understanding, Reinforcement Needed OT Short Term Goals Short Term Goals Time Frame: Oct 19, 2021 Eatin Oral hygiene: 5 Toileting hygiene: 4 Shower/bathe self: 4 Upper body dressin Lower body dressin Putting on/taking off footwear: 4 OT Ged Tutor Goals Senior Care Goals Time Frame: Oct 26, 2021 Eating (QC): 6 Oral Hygiene (QC): 6 Toileting Hygiene (QC): 6 Shower/Bathe Self (QC): 5 Upper Body Dressing (QC): 5 Lower Body Dressing (QC): 5 On/Off Footwear (QC): 5 1=Demonstrate adherence to instructed precautions during ADL tasks. 2=Patient will verbalize/demonstrate understanding of assistive devices/m odifications for ADL. 3=Patient will improve strength/tolerance for activity to enable patient to perform ADL's. OT Education/Plan Problem List/Assessment Assessment: Decreased Activ Tolerance, Decreased UE Strength, Impaired Bed Mobility, Impaired Funct Balance, Impaired I ADL's, Impaired Self-Care Skills, Restricted Funct UE ROM Discharge Recommendations Plan/Recommendations: Continue POC Equpiment Recommendations-D/C: Body Hanger, Sock Aide, Rails on Toilet Target Placement ongoing assessment Treatment Plan/Plan of Care Treatment,Training & Education: Yes Patient would benefit from OT for education, treatment and training to promote independence in ADL's, mobility, safety and/or upper extremity function for ADL's. Plan of Care: ADL Retraining, Functional Mobility, Group Exercise/Act as Ind, UE Funct Exercise/Act, W/C Management Training Treatment Duration: Oct 26, 2021 Frequency: At least 5 of 7 days/Wk (IRF) Estimated Hrs Per Day: 1.5 hours per day Agreement: Yes Time/GCodes Start Time: 11:30 Stop Time: 12:15 Total Time Billed (hr/min): 45 Billed Treatment Time 1 visit EVM (10 min) ADLx2 (35 min) PT eval ([id number]), OT eval ([id number]), co-treat ([id number]) Tamiko Fox OT Oct 10, 2021 12:49
[2021-10-10] MEDS: methylPREDNISolone 40 MG/ML (Solu-MEDROL) VIAL IV SCH ×3 (13:19→21:05)
[2021-10-10] MEDS: CEFEPIME INJECTION 1,000 MG in NS (IVPB) 50 ML IV SCH ×2 (13:20→18:24)
--- NOTE | 2021-10-10 13:29 | ST Cognitive Linguistic Eval ---
Speech Evaluation-General Medical Diagnosis septic shock due to pneumonia Onset Date: Oct 05, 2021 Therapy Diagnosis Therapy Diagnosis: Mild to Moderate Cognitive Impairment Precautions Precautions: Fall Precautions/Isolations: Standard Precautions Referral Referring Physician: Dr. Jody Chase Reason for Referral: Evaluation/Treatment Medical History Pertinent Medical History: Atrial Fib, HTN, Hypothroidism Current History The patient is an 81 year old male with a past medical history of HTN, HLD, hypothyroidism, and obesity, who was transferred to [facility] from [facility] with septic shock due to pneumonia. Reviewed History: Yes Social History Current Living Status: Spouse Speech PLF-Current Status Prior Level of Function Per patient, he was independent with ADL's prior to hospitalization. Subjective The patient was seated upright in a recliner upon entrance to the room. The patient greeted the clinician appropriately and was agreeable to participation in the cognitive linguistic treatment session. The patient denied recent changes, difficulties or concerns with his cognition, speech, language, voice, or swallowing. Language Eval: Auditory Comprehends Simple Yes/No Ques: Functional Indent/Objects Multiple [place]: Functional Ident/Pics in Multiple [place]: Functional Follows 1-Step Commands: Functional Follows Complex Directions: Mild Follows General Conversations: Functional Language Eval: Verbal Language Completes Spontaneous Greeting: Functional Produces Auto, Serial Info: Functional Imitates Simple Words/Phrases: Functional Word Finding: Mild Requests Basic Needs: Functional States Basic Personal Info: Functional Expresses Complex Ideas: Functional Language Evaluation: Reading Comprehends Single Nouns: Functional Language Evaluation: Writing Copies/Traces: Functional Writes Personal Information: Functional Cognitive Patient Orientation The patient was independently oriented to self, location, month, day of week, date, year, and state. Objective Cognitive Domain Attention: Mild Memory: Mild Executive Functions: Moderate Composite Severity Rating: Mild (Mild to moderate.) Clock Drawing Severity Rating: Mild Objective Formal/Standardized Tests [facility] Mental Status (UMS) Results The patient displayed results of +21/30 on the UMS correlating to a "mild n eurocognitive disorder." Oral Motor/Speech Production The patient does not display dysarthria or apraxia of speech. The patient remains 100% intelligible in known and unknown contexts. Impression The patient is an 81 year old male, who presents to the rehabilitation unit with a mild neurocognitive impairment (per SLUMS). The patient displayed difficulties in the areas of delayed recall, problem solving, and executive functioning. Skilled speech language pathology will focus intervention towards improved functional memory and problem solving skills in order to facilitate a discharge to the least restrictive environment. Speech Patient Assess Expression of Ideas/Wants: Exhibits (3) Understanding Verbal Content: Usually Understands (3) Brief Interview-Mental Status: Yes Repetition of Three Words: Three (3) Temporal Orientation: Year: Correct (3) Temporal Orientation: Month: Accurate within 5 days(2) Temporal Orientation: Day: Correct (1) Recall : Wear to say "Sock": Yes, no cue required (2) Recall : Color: Yes, no cue required (2) Recall : Bed: Yes,after cueing (1) Memory/Recall Ability: Current season, Location of own room, That he or she is in a hsp/hsp unit Speech Short Term Goals Short Term Goals Short Term Goals 1. The patient will display 80% accuracy with problem solving exercises, independently. 2. The patient will demonstrate 80% accuracy with memory exercises, independently. Time Frame-STG: One Week Speech Half-Way Goals Half-Way Goals 1. The patient will display increased cognitive linguistic abilities for improved independence with ADL's in the least restrictive environment. Time Frame: Two Weeks Speech-Plan Patient/Family Goals Patient/Family Goals: The patient wishes to return home, independently. Treatment Plan Speech Therapy Treatment Plan: Continue Plan of Care Treatment Duration: Nov 07, 2021 Frequency: 4 times per week (Four to five times per week.) Estimated Hrs Per Day: .5 hour per day Rehab Potential: Fair Barriers to Learning: Fluctuating cognition. Pt/Family Agrees to Plan: Yes Safety Risks/Education Teaching Recipient: Patient Teaching Methods: Discussion Response to Teaching: Verbalize Understanding, Reinforcement Needed Education Topics Provided: Plan of care, Speech language pathology goals Time Speech Therapy Time In: 12:15 Speech Therapy Time Out: 12:45 Total Billed Time: 30 Billed Treatment Time 1, PATRICIO WESTON [facility] Oct 10, 2021 13:28
--- NOTE | 2021-10-10 14:21 | Physical Therapy Daily Note ---
PT Daily Note-Current Subjective Pt. up in recliner, very pleasant, shares some details and his understanding of his recent medical crisis. Agrees to co Rx PT OT for functional activities and monitoring. Pain Location: No Pain Reported Mental Status Patient Orientation: Normal For Age Attachments: Oxygen (6L), Bal Catheter, IV Transfers SCALE: Activities may be completed with or without assistive devices. 6-Shcoxdjgcu-ntfgsht completes the activity by him/herself with no assistance from a helper. 5-Set-up or Clean-up Assistance-helper sets up or cleans up; patient completes activity. [place] assists only prior to or following the activity. 4-Supervision or Touching Assistance-helper provides verbal cues and/or touching/steadying and/or contact guard assistance as patient completes activity. Assistance may be provided throughout the activity or intermittently. 3-Partial/Moderate Assistance-helper does LESS THAN HALF the effort. [place] lifts, holds or supports trunk or limbs, but provides less than half the effort. 2-Substantial/Maximal Assistance-helper does MORE THAN HALF the effort. [place] lifts or holds trunk or limbs and provides more than half the effort. 6-Sukklohbf-xgheee does ALL the effort. Patient does none of the effort to complete the activity. Or, the assistance of 2 or more helpers is required for the patient to complete the activity. If activity was not attempted, code reason: 7-Patient Refused. 9-Not Applicable-not attempted and the patient did not perform the activity before the current illness, exacerbation or injury. 10-Not Attempted due to Environmental Limitations-(lack of equipment, weather restraints, etc.). 88-Not Attempted due to Medical Conditions or Safety Concerns. Sit to Stand (QC): 5 Weight Bearing Right Lower Extremity: Right Weight Bearing/Tolerated Left Lower Extremity: Left Weight Bearing/Tolerated Gait Training Does the Patient Walk?: Yes Walk 10 feet (QC): 4 Gait Persons Needed: 1 Gait Assistive Device: FWW pt. seen for gait and monitoring for short dist in room recliner to arm chair, approx 10 ft x 2. even step length and god use of asst device. with gait pts O2 sats remained >90% at 93% and HR 112. Exercises Seated Therapy Exercises: Ankle pumps, Long arc quads, Hip flexion Seated Reps: 12 Treatments PT OT co Rx secondary to findings based on PT eval in which pt. had poor strength and endurance and very limited tolerance for activity leaving him vulnerable and the need for 2 skilled clinicians. Pt was seen for sit to stands, use and practice of acapella with coughing results and 2 short gait bouts as well as stance at chair with bedside table for brushing teeth lasting approx 2 mins, Pt. was audibly dyspneic after this activity, O2 sats on 6L O2 were 86% immediately following with HR at 116. Pt. recovered very quickly with in 1.5 min to O2 sat at 94% and HR 98. After rx pt. again in recliner with pillow support , O2 insitu , call gama and phone at hand and LEs elevated, need met Assessment Current Status: Good Progress showing improved tolerance for Rx over morning therapy session PT Short Term Goals Short Term Goals Time Frame: Oct 17, 2021 Roll Left & Right: 6 Sit to lyin Lying to sitting on side of be: 4 Sit to stand: 4 (SBA) Chair/erw-sw-cbvwc transfer: 4 (SBA) Walk 10 feet: 4 Walk 50 feet with two turns: 4 Walk 150 feet: 4 PT Shelter Goals Coding Validator Goals PT Shelter Goals Time Frame: Oct 31, 2021 Roll Left & Right (QC): 6 Sit to Lying (QC): 6 Lying-Sitting on Side/Bed(QC): 6 Sit to Stand (QC): 6 Chair/Kyk-zn-Wbwhw Xfer(QC): 6 Toilet Transfer (QC): 6 Car Transfer (QC): 3 Does the Patient Walk: Yes Walk 10 feet (QC): 6 Walk 50ft with 2 Turns (QC): 6 Walk 150 ft (QC): 6 Walking 10ft on Uneven Surface: 4 1 Step (curb) (QC): 4 4 Steps (QC): 4 12 Steps (QC): 88 Picking up an Object (QC): 4 Wheel 50 feet with 2 turns (QC: 9 Wheel 150 feet: 9 PT Plan Treatment/Plan Treatment Plan: Continue Plan of Care Treatment Plan: Bed Mobility, Education, Functional Activity Tatiana, Functional Strength, Group Therapy, Gait, Safety, Therapeutic Exercise, Transfers Treatment Duration: Oct 31, 2021 Frequency: At least 5 of 7 days/Wk (IRF) Estimated Hrs Per Day: 1.5 hours per day Patient and/or Family Agrees t: Yes Safety Risks/Education Patient Education: Gait Training, Transfer Techniques, Correct Positioning, Disease Process, Safety Issues Teaching Recipient: Patient Teaching Methods: Demonstration, Discussion Response to Teaching: Verbalize Understanding, Return Demonstration, Reinforcement Needed Time/GCodes Time In: 1340 Time Out: 1415 Total Billed Treatment Time: 35 Total Billed Treatment 1,FA35m (co Rx 35m) STEPHANI MOTTA LANDSCAPE PHOTOGRAPHER Oct 10, 2021 14:21
--- NOTE | 2021-10-10 14:22 | Occupational Ther Daily Note ---
OT Current Status-Daily Note Subjective Denies pain, agreeable to co-treat secondary to severely impaired activity tolerance, increase in oxygen needs and need of 2 skilled clinicians to progress independence with adls and mobility. Appearance Pt returned to sitting in chair, all needs within reach. Mental Status/Objective Patient Orientation: Person, Place, Situation Attachments: Bal Catheter, IV, Oxygen, Telemetry ADL-Treatment Therapy Code Descriptions/Definitions Functional [place] Measure: 0=Not Assessed/NA 4=Minimal Assistance 1=Total Assistance 5=Supervision or Setup 2=Maximal Assistance 6=Modified [place] 3=Moderate Assistance 7=Complete IndependenceSCALE: Activities may be completed with or without assistive devices. 8-Duxalxsjbc-yqavezc completes the activity by him/herself with no assistance from a helper. 5-Set-up or Clean-up Assistance-helper sets up or cleans up; patient completes activity. [place] assists only prior to or following the activity. 4-Supervision or Touching Assistance-helper provides verbal cues and/or touching/steadying and/or contact guard assistance as patient completes activity. Assistance may be provided throughout the activity or intermittently. 3-Partial/Moderate Assistance-helper does LESS THAN HALF the effort. [place] lifts, holds or supports trunk or limbs, but provides less than half the effort. 2-Substantial/Maximal Assistance-helper does MORE THAN HALF the effort. [place] lifts or holds trunk or limbs and provides more than half the effort. 9-Mlrfrzmsr-zoovjl does ALL the effort. Patient does none of the effort to complete the activity. Or, the assistance of 2 or more helpers is required for the patient to complete the activity. If activity was not attempted, code reason: 7-Patient Refused. 9-Not Applicable-not attempted and the patient did not perform the activity before the current illness, exacerbation or injury. 10-Not Attempted due to Environmental Limitations-(lack of equipment, weather restraints, etc.). 88-Not Attempted due to Medical Conditions or Safety Concerns. Oral Hygiene (QC): 4 Pt Continues to need several rest breaks but appeared to tolerate session much better this this afternoon. Sit<>stand: CGA. He ambulated short distances within room with use of walker and sba-cga. Goal to increase endurance, standing tolerance, and breathing techniques needed for adls and mobility. He does require lengthy rest breaks post short mobility and cues for PLB. O2 spot checked throughout session ranging from 83-96%. Pt on 6L NC. Pt able to stand for ~1-2 minutes to brush gums, no LOB but mild shakinesses noted with prolong standing. CGA for safety. Education on importance of oral care in the hospital setting, especially after breathing treatments to prevent thrush. Education OT Patient Education: Correct positioning, Disease process, Energy conservation, Modified ADL techniques, Progress toward Goal/Update tx plan, Purpose of tx/functional activities, Rehab process, Safety issues, Transfer techniques Teaching Recipient: Patient Teaching Methods: Discussion Response to Teaching: Verbalize Understanding, Reinforcement Needed OT Short Term Goals Short Term Goals Time Frame: Oct 19, 2021 Eatin Oral hygiene: 5 Toileting hygiene: 4 Shower/bathe self: 4 Upper body dressin Lower body dressin Putting on/taking off footwear: 4 OT Senior Care Goals Senior Care Goals Time Frame: Oct 26, 2021 Eating (QC): 6 Oral Hygiene (QC): 6 Toileting Hygiene (QC): 6 Shower/Bathe Self (QC): 5 Upper Body Dressing (QC): 5 Lower Body Dressing (QC): 5 On/Off Footwear (QC): 5 1=Demonstrate adherence to instructed precautions during ADL tasks. 2=Patient will verbalize/demonstrate understanding of assistive devices/modifications for ADL. 3=Patient will improve strength/tolerance for activity to enable patient to perform ADL's. OT Education/Plan Problem List/Assessment Assessment: Decreased Activ Tolerance, Decreased UE Strength, Impaired Funct Balance, Impaired I ADL's, Impaired Self-Care Skills Discharge Recommendations Plan/Recommendations: Continue POC Treatment Plan/Plan of Care Treatment,Training & Education: Yes Patient would benefit from OT for education, treatment and training to promote independence in ADL's, mobility, safety and/or upper extremity function for ADL's. Plan of Care: ADL Retraining, Functional Mobility, Group Exercise/Act as Ind, UE Funct Exercise/Act, W/C Management Training Treatment Duration: Oct 26, 2021 Frequency: At least 5 of 7 days/Wk (IRF) Estimated Hrs Per Day: 1.5 hours per day Agreement: Yes Rehab Potential: Fair Time/GCodes Start Time: 13:40 Stop Time: 14:15 Total Time Billed (hr/min): 35 Billed Treatment Time 1 visit FA (20 min) ADL (15 min) Tamiko Fox OT Oct 10, 2021 14:22
[2021-10-10] MEDS: RT-ALBUTEROL/IPRATROPIUM 3 ML (DUONEB) VIAL INH SCH ×3 (14:44→22:07)
--- NOTE | 2021-10-10 15:23 | Progress Note ---
JON PITTMAN 10/10/21 1523: Progress Note CC: Septic Shock 2/2 pneumonia HPI: This is a 81 year old male with PMH HTN, HLD, hypothyroidism, obesity, who was transferred from [facility] with septic shock due to pneumonia. He has been in the ICU since 10/06/21 Today patient reports that he is still coughing up sputum, and feels weak and short of breath. PMH: HTN HLD Hypothyroidism COPD PSH: Left quadriceps tendon repair Allergies: PCN Home Medications: Aspirin 81mg QD Atorvastatin 40mg HS Diltiazem 180mg QD Famotidine 20mg QD Levothyroxine 112mcg QD Prednisone 10mg QD FH: None SH: Former smoker ROS: GEN: denies fevers, chills HEENT: denies ZELAYA, hearing/vision changes LUNGS: endorses SOB, cough CV: denies chest pain, palpitations GI: denies N/V/D, constipation MSK: denies joint/backaches, myalgias NEURO: denies blackouts, peripheral neuropathy SKIN: denies rashes, lesions PE: Gen: Appears uncomfortable HEENT: NCAT, EOMI, MMM, anicteric sclerae Neck: no obviously visible lymphadenopathy or masses CV: extremities appear pink and well-perfused, no peripheral edema Resp: increased respiratory effort, audible wheezing GI: no distention Ext: No digital cyanosis, gait not tested Skin: no visible rashes/lesions/ulcers Neuro: AOx3, spontaneous movement of all four limbs Psych: normal mood and affect, intact judgement and insight A&P: This is a 81 y/o s/p ICU admission for septic shock 2/2 pneumonia admitted for inpatient rehabilitation Frailty and Increased O2 Requirement s/p ICU admission -Pt currently on 4L NC sat 90%; pt with no O2 requirement at home -Continue RT interventions with Duoneb Q4HRS -Start IV Solumedrol 40mg Q8HRS -Continue IV cefepime till 10/15/21 -Consult PT/OT for evaluations of ability to complete ADLs and IADLs JODY CHASE DO 10/11/21 0549: Supervisory-Addendum Brief Verification & Attestation Participated in pt care: history, MDM, physical Personally performed: exam, history, MDM, supervision of care Care discussed with: Medical Student Procedures: n/a Results interpretation: Verified all documentation Verification and Attestation of Medical Student E/M Service A medical student performed and documented this service in my presence. I reviewed and verified all information documented by the medical student and made modifications to such information, when appropriate. I personally performed the physical exam and medical decision making. Jody Chase, Oct 11, 2021,05:48 JON PITTMAN Oct 10, 2021 15:23 JODY CHASE DO Oct 11, 2021 05:49
[2021-10-10] MEDS: RIVAROXABAN 20 MG TABLET (XARELTO) PO SCH (16:30)
[2021-10-10] MEDS: inSUlin ASPART (NovoLOG) 1 UNIT/0.01 ML (CHARGE PER UNIT) SC SCH ×2 (16:30→21:05)
[2021-10-10 20:00] VITALS: BP 144/73
[2021-10-10] MEDS: DOCUSATE SODIUM 100 MG (COLACE) CAP PO SCH ×2 (20:17→21:06)
[2021-10-10] MEDS: SENNA W/DOCUSATE (SENOKOT S) TABLET PO SCH (21:06)
[2021-10-10] MEDS: polyethylene glycoL POWDER 17 GM (MIRALAX) PACK PO SCH (21:24)
[2021-10-10] MEDS: SENNOSIDES 8.6 MG (SENOKOT) TAB PO SCH (21:24)
[2021-10-11] MEDS: CEFEPIME INJECTION 1,000 MG in NS (IVPB) 50 ML IV SCH ×4 (00:34→17:30)
[2021-10-11] MEDS: RT-ALBUTEROL/IPRATROPIUM 3 ML (DUONEB) VIAL INH SCH ×6 (02:28→23:08)
[2021-10-11] MEDS: inSUlin ASPART (NovoLOG) 1 UNIT/0.01 ML (CHARGE PER UNIT) SC SCH ×4 (05:28→21:17)
[2021-10-11] MEDS: methylPREDNISolone 40 MG/ML (Solu-MEDROL) VIAL IV SCH ×3 (06:05→21:20)
[2021-10-11 06:26] LABS: BASOPHILS # (AUTO) 0.1 10^3/uL (0.0-0.1); BASOPHILS % (AUTO) 1 % (0-10); EOSINOPHILS % (AUTO) 0 % (0-10); HEMATOCRIT 29 % (40-54); HEMOGLOBIN 9.3 g/dL (13.3-17.7); LYMPHOCYTES # (AUTO) 0.8 10^3/uL (1.0-4.0); LYMPHOCYTES % (AUTO) 4 % (12-44); MEAN CORPUSCULAR HEMOGLOBIN 28 pg (25-34); MEAN CORPUSCULAR HGB CONC 32 g/dL (32-36); MEAN CORPUSCULAR VOLUME 88 fL (80-99); MEAN PLATELET VOLUME 10.2 fL (9.0-12.2); MONOCYTES # (AUTO) 0.7 10^3/uL (0.0-1.0); MONOCYTES % (AUTO) 4 % (0-12); NEUTROPHILS # (AUTO) 15.8 10^3/uL (1.8-7.8); NEUTROPHILS % (AUTO) 79 % (42-75); PLATELET COUNT 482 10^3/uL (130-400); WHITE BLOOD COUNT 20.1 10^3/uL (4.3-11.0)
[2021-10-11 06:46] LABS: ALBUMIN 2.5 GM/DL (3.2-4.5); BAND NEUTROPHILS 9 %; BILIRUBIN,TOTAL 0.4 MG/DL (0.1-1.0); CALCIUM 7.8 MG/DL (8.5-10.1); CREATININE SERUM 0.78 MG/DL (0.60-1.30); LYMPHOCYTES % (MANUAL) 7 %; MONOCYTES % (MANUAL) 2 %; NEUTROPHILS % (MANUAL) 78 %; POTASSIUM 3.8 MMOL/L (3.6-5.0); TOTAL PROTEIN 5.2 GM/DL (6.4-8.2)
[2021-10-11 06:47] LABS: ANISOCYTOSIS SLIGHT; HYPOCHROMASIA SLIGHT; METAMYELOCYTES % 2 %; MYELOCYTES % 2 %
--- NOTE | 2021-10-11 06:51 | Individualized Plan of Care ---
Individualized Plan of Care Rehab Nursing IPOC Order Admission Date Oct 10, 2021 at 11:20 Current Orders Orders Admission Order(Inpt,Obs,Sdc) (10/10/21 10:26) Vital Signs: Per Unit Policy ( 08,16,00 (10/10/21 10:26) Dwaine Restrepo , (10/10/21 10:26) Sequential Compression Device (10/10/21 10:26) Home Maker-Inpt Rehab Con (10/10/21 10:26) Rehab Nursing Orders-Ipoc (10/10/21 10:26) Physical Therapy Rehab Orders (10/10/21 10:26) Occupational Therapy Rehab Ord (10/10/21 10:26) Speech Therapy Rehab Orders (10/10/21 10:26) Cbc With Automated Diff (10/11/21 06:00) Comprehensive Metabolic Panel (10/11/21 06:00) Precautions (Aru) (10/10/21 10:26) Weekly Weight WEEK (10/10/21 10:26) Rehab-Intensity Of Therapy (10/10/21 10:26) Initiate Admission Nursing Pro .admission (10/10/21 10:26) Alprazolam Tablet (Xanax Tablet) (10/10/21 10:30) Calcium Carbonate Chew Tablet (Antacid C (10/10/21 10:30) Diphenhydramine Tablet (Benadryl Tablet) (10/10/21 10:30) Docusate Sodium Capsule (Colace Capsule) (10/10/21 21:00) Docusate Sodium Capsule (Colace Capsule) (10/10/21 10:30) Bisacodyl Suppository (Dulcolax Supposit (10/10/21 10:30) Lactulose Oral Solution (Enulose Oral So (10/10/21 10:30) Na Phos/Na Biphos Enema (Fleet Enema Omkar (10/10/21 10:30) Guaifenesin/Codeine Syrup (Robitussin Ac (10/10/21 10:30) Loperamide Tablet (Imodium Tablet) (10/10/21 10:30) Melatonin Tablet (Melatonin Tablet) (10/10/21 10:30) Polyethylene Glycol Powder Pkt (Miralax (10/10/21 21:00) Ondansetron Oral Dissolve Tab (Zofran (10/10/21 10:30) Senna S Tablet (Senokot S Tablet) (10/10/21 21:00) Acetaminophen Tablet/Caplet (Tylenol T (10/10/21 10:30) Sequential Compression Device ONCE (10/10/21 10:26) Initiate Admission Nursing Pro .admission (10/10/21 10:26) Admission Arrival Bed Request (10/10/21 11:31) Code/Resuscitation (10/10/21 12:16) Accucheck Achs ACHS (10/10/21 12:16) Activity (10/10/21 12:16) Obtain Records From (Order) (10/10/21 12:16) Weight Bearing Restrictions (10/10/21 12:16) General/Regular (10/10/21 Lunch) Albuterol/Ipra Inhalation Soln (Duoneb I (10/10/21 14:00) Atorvastatin Tablet (Lipitor Tablet) (10/10/21 21:00) Cefepime Injection (Maxipime Injection) (10/10/21 12:30) Docusate Sodium Capsule (Colace Capsule) (10/10/21 21:00) Melatonin Tablet (Melatonin Tablet) (10/10/21 12:30) Polyethylene Glycol Powder Pkt (Miralax (10/10/21 12:30) Antacid Suspension (Mylanta Suspension (10/10/21 12:30) Insulin Aspart (Novolog) (Novolog (Charg (10/10/21 16:00) Pot Phos/Na Phos Tablets (Phospha 250 Ne (10/11/21 08:30) Rivaroxaban Tablet (Xarelto Tablet) (10/10/21 17:00) Sennosides Tablet (Senokot Tablet) (10/10/21 21:00) Acetaminophen Tablet/Caplet (Tylenol T (10/10/21 12:30) Ondansetron Injection (Zofran Injectio (10/10/21 12:30) Ondansetron Oral Dissolve Tab (Zofran (10/10/21 12:30) Diltiazem Cd 24 Hr Capsule (Cardizem Cd (10/11/21 09:00) Bipap (Bilevel) Set Up (10/10/21 12:16) Consult Cardiology (10/10/21 12:16) Mat Initiate Protocol (10/10/21 12:16) Svn Small Volume Nebulizer (10/10/21 12:16) Methylprednisolone Sod Succ (Solu-Medrol (10/10/21 12:30) Pantoprazole Tablet (Protonix Tablet) (10/11/21 09:00) Patient Visit (10/10/21 ) Speech Sound Lang Comp (10/10/21 ) Treat. Speech/Lang/Voice (10/10/21 ) Patient Visit (10/10/21 ) Pt Eval Moderate Complexity (10/10/21 ) Functional Activities, Ea 15 (10/10/21 ) Patient Visit (10/10/21 ) Functional Activities, Ea 15 (10/10/21 ) Telemetry (10/10/21 15:28) Telemetry Nursing Assessment ( (10/10/21 15:28) Manual Differential (10/11/21 06:15) Procalcitonin (Pct) (10/11/21 06:51) Catheter(Urinary) Discontinue (10/11/21 11:46) Ekg Tracing (10/11/21 11:55) Patient Visit (10/11/21 ) Treat. Speech/Lang/Voice (10/11/21 ) Rehab Nursing Orders: Ongoing Assess. of Cognitive Status, Ongoing Assess. of Function Status, Bladder Management, Bladder Scan, Bladder Training, Bowel Management, Bowel Training, Disease Management & Educaiton, DVT Prophylaxis, Fall Prevention, Fluid/Electrolyte/Nutrition Mgmt, Infection Prevention, Medication Management & Education, Management of Risks & Complications, Management of Skin Intergrity, Nutrition Management, Pain Management, Patient/Family Support, Safety Management Intensity of Therapy to be met Patient to be seen: 15 hrs over 7 cons. days PT IPOC Problem List: Activity Tolerance, Functional Strength, Safety, Balance, Gait, Transfer, Bed Mobility, ROM Treatment Plan: Continue Plan of Care Bed Mobility, Education, Functional Activity Tatiana, Functional Strength, Group Therapy, Gait, Safety, Therapeutic Exercise, Transfers Treatment Duration: Oct 31, 2021 Frequency: At least 5 of 7 days/Wk (IRF) Estimated Hrs Per Day: 1.5 hours per day OT IPOC Problems: Decreased Activ Tolerance, Decreased UE Strength, Impaired Funct Balance, Impaired I ADL's, Impaired Self-Care Skills OT Treatment, Training and Edu: Yes Plan of Care: ADL Retraining, Functional Mobility, Group Exercise/Act as Ind, UE Funct Exercise/Act, W/C Management Training Treatment Duration: Oct 26, 2021 Frequency: At least 5 of 7 days/Wk (IRF) Estimated Hrs Per Day: 1.5 hours per day [facility] Speech Therapy Treatment Plan: Continue Plan of Care Treatment Duration: Nov 07, 2021 Frequency: 4 times per week (Four to five times per week.) Estimated Hrs Per Day: .5 hour per day Home Maker/Case Mgmt Home Maker/Case Managemen: Discharge Planning Dietitian/Furnace Unloader Dietitian/Furnace Unloader to monitor nutritional status and make changes and/or recommendations as needed and work with speech pathology on dietary upgrades as the occur. Physician IP Medical Issues being managed closely and that require the 24 hour availability of a physician: Recent critical illness will require close monitoring for decompensation and will require Cardiology consultation along with aggressive oxygen supplementation. Medical Issues: Bowel/Bladder Function, DVT Prophylaxis, Falls Precautions, Fluid/Electrolyte/Nutrition Balance, Infection Protection, Pain Management Brief Synthesis of Preadmission Screen, Post-Admission Evaluation, and Therapy Evaluations: PT OT will focus on regaining function in order to return home to independent living Medical Prognosis: Guarded Anticipated Length of Stay: 10 days FRANCISCO BHAKTA DO Oct 11, 2021 06:51
--- NOTE | 2021-10-11 06:51 | PM&R Progress Note ---
Subjective HPI/CC On Admission Date Seen by Provider: Oct 11, 2021 Time Seen by Provider: 12:00 Subjective/Events-last exam 10/11/21: Pt doing a lot better today Bowels are moving Catheter was discontinued Blood pressure is doing okay White count 20,000 from steroid Hemoglobin is 9.3 Remains on 4-6L of O2 and does increase with exertion Overall, much improved Review of Systems General: Fatigue, Malaise Pulmonary: Dyspnea, Cough Objective Exam Vital Signs Vital Signs Date Time Temp Pulse Resp B/P (MAP) Pulse Ox O2 Delivery O2 Flow Rate FiO2 10/12/21 03:40 98 Nasal Cannula 4.00 10/12/21 01:00 79 10/11/21 20:00 36.3 24 150/72 (98) Capillary Refill : General Appearance: WD/WN, Anxious, Chronically ill, Mild Distress HEENT: PERRL/EOMI, Normal ENT Inspection, Pharynx Normal Neck: Full Range of Motion, Normal Inspection, Non Tender, Supple, Carotid Bruit Respiratory: Chest Non Tender, No Respiratory Distress, Accessory Muscle Use, Decreased Breath Sounds, Rales, Wheezing Cardiovascular: Regular Rate, Rhythm, No Edema, No Gallop, No JVD, No Murmur, Normal Peripheral Pulses Gastrointestinal: Normal Bowel Sounds, No Organomegaly, No Pulsatile Mass, Non Tender, Soft Back: Normal Inspection, No CVA Tenderness, No Vertebral Tenderness Extremity: Normal Capillary Refill, Normal Inspection, Normal Range of Motion, Non Tender, No Calf Tenderness, No Pedal Edema Neurologic/Psychiatric: Alert, Oriented x3, No Motor/Sensory Deficits, Normal Mood/Affect Skin: Normal Color, Warm/Dry Lymphatic: No Adenopathy Results/Procedures Lab Laboratory Tests 10/11/21 06:15 Patient resulted labs reviewed. FIM Transfers Therapy Code Descriptions/Definitions Functional [place] Measure: 0=Not Assessed/NA 4=Minimal Assistance 1=Total Assistance 5=Supervision or Setup 2=Maximal Assistance 6=Modified [place] 3=Moderate Assistance 7=Complete IndependenceSCALE: Activities may be completed with or without assistive devices. 7-Hvfolzfcyp-wmhfiqv completes the activity by him/herself with no assistance from a helper. 5-Set-up or Clean-up Assistance-helper sets up or cleans up; patient completes activity. [place] assists only prior to or following the activity. 4-Supervision or Touching Assistance-helper provides verbal cues and/or touching/steadying and/or contact guard assistance as patient completes activity. Assistance may be provided throughout the activity or intermittently. 3-Partial/Moderate Assistance-helper does LESS THAN HALF the effort. [place] lifts, holds or supports trunk or limbs, but provides less than half the effort. 2-Substantial/Maximal Assistance-helper does MORE THAN HALF the effort. [place] lifts or holds trunk or limbs and provides more than half the effort. 4-Cbfxocdhu-uoxwde does ALL the effort. Patient does none of the effort to complete the activity. Or, the assistance of 2 or more helpers is required for the patient to complete the activity. If activity was not attempted, code reason: 7-Patient Refused. 9-Not Applicable-not attempted and the patient did not perform the activity before the current illness, exacerbation or injury. 10-Not Attempted due to Environmental Limitations-(lack of equipment, weather re straints, etc.). 88-Not Attempted due to Medical Conditions or Safety Concerns. Roll Left to Right (QC): 6 Sit to Lying (QC): 3 Sit to Stand (QC): 5 Chair/Pxp-yf-Ufsgm Xfer(QC): 4 Car Transfer (QC): 3 Gait Training Does the Patient Walk?: Yes Walk 10 feet (QC): 4 Walk 50 ft with 2 Turns(QC): 4 Walk 150 ft (QC): 88 Walking 10ft/uneven surface-QC: 88 Gait Persons Needed: 1 Gait Assistive Device: FWW Wheelchair Training Wheel 50 ft with 2 turns (QC): 1 Wheel 150 ft (QC): 1 Stair Training 1 Step (curb) (QC): 88 4 Steps (QC): 88 12 Steps (QC): 88 Balance Picking up an Object (QC): 88 ADL-Treatment Eating (QC): 5 Oral Hygiene (QC): 4 Shower/Bathe Self (QC): 3 Upper Body Dressing (QC): 10 Lower Body Dressing (QC): 3 On/Off Footwear (QC): 3 Toileting Hygiene (QC): 1 (Bal catheter ) Assessment/Plan Assessment and Plan Assess & Plan/Chief Complaint Assessment: Debility New onset AF w/recent RVR Active wheezing AECOPD Hypoxia PNA s/p septic shock CHAZ HTN Hypoxemia Plan: Monitor closely IV steroids IV abx DC cath tomorrow Supportive care 10/11/21: Monitor closely Cath DC (1) Debility (2) Septic shock Status: Acute (3) Pneumonia Status: Acute (4) Primary hypertension Status: Chronic (5) Mixed hyperlipidemia Status: Chronic (6) Obesity Status: Chronic (7) Paroxysmal atrial fibrillation Status: Acute (8) COPD exacerbation (9) Atrial fibrillation with RVR (10) Acute kidney injury Status: Acute (11) NSTEMI (non-ST elevation myocardial infarction) Status: Acute (12) Acute on chronic respiratory failure with hypoxemia Status: Acute FRANCISCO BHAKTA DO Oct 11, 2021 06:51
[2021-10-11 07:33] VITALS: BP 140/66
[2021-10-11] MEDS ORDERED: POT PHOS/NA PHOS (K-PHOS NEUTRAL) PO NR (08:30)
--- NOTE | 2021-10-11 08:51 | Occupational Ther Daily Note ---
OT Current Status-Daily Note Subjective Pt alert, sitting in recliner. Pt agrees to therapy. No c/o pain. Mental Status/Objective Patient Orientation: Person, Place, Time, Situation Attachments: Bal Catheter, IV (PICC) ADL-Treatment OT/PT co-treat([id number]), skills of 2 clinicians required due to severely impaired activity tolerance, increase in oxygen needs to progress independence with ADLs and functional mobility. Pt takes increased time to complete all tasks due to severely impaired activity tolerance, multiple lengthy recovery breaks due to O2 sat levels decreasing and SOA. CGA for sit to stand. Pt able to ambulate to bathroom using FWW then sat in w/c, recovery break required. Pt then requested to use toilet. Transferred from w/c to toilet using FWW with SBA. SBA to hike pants down over hips, due to fatigue and SOA, pt required assist to cleanse buttocks and hike pants over hips. Pt able to complete diana care with CGA for stabilization. After session, pt left in care of PT. All needs met in room. Therapy Code Descriptions/Definitions Functional [place] Measure: 0=Not Assessed/NA 4=Minimal Assistance 1=Total Assistance 5=Supervision or Setup 2=Maximal Assistance 6=Modified [place] 3=Moderate Assistance 7=Complete IndependenceSCALE: Activities may be completed with or without assistive devices. 5-Fqztleceaa-xefesjk completes the activity by him/herself with no assistance from a helper. 5-Set-up or Clean-up Assistance-helper sets up or cleans up; patient completes activity. [place] assists only prior to or following the activity. 4-Supervision or Touching Assistance-helper provides verbal cues and/or touching/steadying and/or contact guard assistance as patient completes activity. Assistance may be provided throughout the activity or intermittently. 3-Partial/Moderate Assistance-helper does LESS THAN HALF the effort. [place] lifts, holds or supports trunk or limbs, but provides less than half the effort. 2-Substantial/Maximal Assistance-helper does MORE THAN HALF the effort. [place] lifts or holds trunk or limbs and provides more than half the effort. 7-Cpqqtruwd-xrvure does ALL the effort. Patient does none of the effort to complete the activity. Or, the assistance of 2 or more helpers is required for the patient to complete the activity. If activity was not attempted, code reason: 7-Patient Refused. 9-Not Applicable-not attempted and the patient did not perform the activity before the current illness, exacerbation or injury. 10-Not Attempted due to Environmental Limitations-(lack of equipment, weather restraints, etc.). 88-Not Attempted due to Medical Conditions or Safety Concerns. Eating (QC): 6 (Independent with set up and uses regular utensils to eat.) Lower Body Dressing (QC): 2 Toileting Hygiene (QC): 3 (mod A) Toilet Transfer (QC): 4 Pt educated on hip kit for lower body dressing due to pt's impaired activity tolerance. Pt stated that has sock aide at home and that they have reachers. OT Short Term Goals Short Term Goals Time Frame: Oct 19, 2021 Eatin Oral hygiene: 5 Toileting hygiene: 4 Shower/bathe self: 4 Upper body dressin Lower body dressin Putting on/taking off footwear: 4 OT Before School Babysitter Goals Before School Babysitter Goals Time Frame: Oct 26, 2021 Eating (QC): 6 Oral Hygiene (QC): 6 Toileting Hygiene (QC): 6 Shower/Bathe Self (QC): 5 Upper Body Dressing (QC): 5 Lower Body Dressing (QC): 5 On/Off Footwear (QC): 5 1=Demonstrate adherence to instructed precautions during ADL tasks. 2=Patient will verbalize/demonstrate understanding of assistive devices/modifications for ADL. 3=Patient will improve strength/tolerance for activity to enable patient to perform ADL's. OT Education/Plan Problem List/Assessment Assessment: Decreased Activ Tolerance, Decreased UE Strength, Impaired Self- Care Skills Discharge Recommendations Plan/Recommendations: Continue POC Treatment Plan/Plan of Care Patient would benefit from OT for education, treatment and training to promote independence in ADL's, mobility, safety and/or upper extremity function for AD L's. Plan of Care: ADL Retraining, Functional Mobility, Group Exercise/Act as Ind, UE Funct Exercise/Act, W/C Management Training Treatment Duration: Oct 26, 2021 Frequency: At least 5 of 7 days/Wk (IRF) Estimated Hrs Per Day: 1.5 hours per day Agreement: Yes Rehab Potential: Fair Time/GCodes Start Time: 07:15 Stop Time: 08:30 Total Time Billed (hr/min): 75 Billed Treatment Time 1 visit-ADL 5 (75 min) co-treat with PT [id number], individual [id number] HERNANDEZ MEDELLIN Oct 11, 2021 08:51
[2021-10-11] MEDS: polyethylene glycoL POWDER 17 GM (MIRALAX) PACK PO SCH ×2 (09:15→21:17)
[2021-10-11] MEDS: SENNA W/DOCUSATE (SENOKOT S) TABLET PO SCH ×2 (09:15→21:16)
[2021-10-11] MEDS: PANTOPRAZOLE 40 MG (PROTONIX) TAB PO SCH (09:15)
[2021-10-11] MEDS: DOCUSATE SODIUM 100 MG (COLACE) CAP PO SCH ×3 (09:15→21:16)
[2021-10-11] MEDS: SENNOSIDES 8.6 MG (SENOKOT) TAB PO SCH ×2 (09:16→21:16)
--- NOTE | 2021-10-11 10:05 | Physical Therapy Daily Note ---
PT Daily Note-Current Subjective PT in BR working w/OT upon arrival. Pt agrees to short PT/OT co-treat due to pt's lack of activity tolerance, and drop of O2 with any exertion during activity. Pain Location: No Pain Reported Mental Status Patient Orientation: Person, Place, Situation Attachments: Oxygen O2 increased to 4.5L with activity due to any exertion making O2 drop. Transfers SCALE: Activities may be completed with or without assistive devices. 8-Tzweoumbiq-whyljbs completes the activity by him/herself with no assistance from a helper. 5-Set-up or Clean-up Assistance-helper sets up or cleans up; patient completes activity. [place] assists only prior to or following the activity. 4-Supervision or Touching Assistance-helper provides verbal cues and/or touching/steadying and/or contact guard assistance as patient completes activity . Assistance may be provided throughout the activity or intermittently. 3-Partial/Moderate Assistance-helper does LESS THAN HALF the effort. [place] lifts, holds or supports trunk or limbs, but provides less than half the effort. 2-Substantial/Maximal Assistance-helper does MORE THAN HALF the effort. [place] lifts or holds trunk or limbs and provides more than half the effort. 2-Njpdgqngl-hnkwej does ALL the effort. Patient does none of the effort to complete the activity. Or, the assistance of 2 or more helpers is required for the patient to complete the activity. If activity was not attempted, code reason: 7-Patient Refused. 9-Not Applicable-not attempted and the patient did not perform the activity before the current illness, exacerbation or injury. 10-Not Attempted due to Environmental Limitations-(lack of equipment, weather restraints, etc.). 88-Not Attempted due to Medical Conditions or Safety Concerns. Sit to Stand (QC): 4 Toilet Transfer (QC): 4 Weight Bearing Right Lower Extremity: Right Weight Bearing/Tolerated Left Lower Extremity: Left Weight Bearing/Tolerated Wheelchair Training Does the Pt Use a Wheelchair?: Yes Type of Wheelchair: Manual Treatments OT/PT co-treat([id number]), skills of 2 clinicians required due to severely impaired activity tolerance, increase in oxygen needs to progress independence with ADLs and functional mobility. Pt takes increased time to complete all tasks due to severely impaired activity tolerance, multiple lengthy recovery breaks due to O2 sat levels decreasing and SOA. Pt is in BR upon arrival working w/OT. SBA to hike pants down over hips, due to fatigue and SOA, pt required assist to cleanse buttocks and hike pants over hips. Pt able to complete diana care with CGA for stabilization.CGA for sit to stand. OT departs at this time. ([phone]) Pt brushes teeth and hair. DRAWING OPERATOR assists pt with donning shirt, LIZZETTE hoses & socks. Pt TF to recliner and rests at end of tx with all needs met, call light in hand. Assessment Current Status: Fair Progress O2 drops with any activity PT Short Term Goals Short Term Goals Time Frame: Oct 17, 2021 Roll Left & Right: 6 Sit to lyin Lying to sitting on side of be: 4 Sit to stand: 4 (SBA) Chair/udc-zq-vtumt transfer: 4 (SBA) Walk 10 feet: 4 Walk 50 feet with two turns: 4 Walk 150 feet: 4 PT Longterm Goals Charging Board Operator Goals PT Longterm Goals Time Frame: Oct 31, 2021 Roll Left & Right (QC): 6 Sit to Lying (QC): 6 Lying-Sitting on Side/Bed(QC): 6 Sit to Stand (QC): 6 Chair/Cia-es-Kxtbv Xfer(QC): 6 Toilet Transfer (QC): 6 Car Transfer (QC): 3 Does the Patient Walk: Yes Walk 10 feet (QC): 6 Walk 50ft with 2 Turns (QC): 6 Walk 150 ft (QC): 6 Walking 10ft on Uneven Surface: 4 1 Step (curb) (QC): 4 4 Steps (QC): 4 12 Steps (QC): 88 Picking up an Object (QC): 4 Wheel 50 feet with 2 turns (QC: 9 Wheel 150 feet: 9 PT Plan Problem List Problem List: Activity Tolerance, Functional Strength Treatment/Plan Treatment Plan: Continue Plan of Care Treatment Plan: Bed Mobility, Education, Functional Activity Tatiana, Functional Strength, Group Therapy, Gait, Safety, Therapeutic Exercise, Transfers Treatment Duration: Oct 31, 2021 Frequency: At least 5 of 7 days/Wk (IRF) Estimated Hrs Per Day: 1.5 hours per day Patient and/or Family Agrees t: Yes Safety Risks/Education Patient Education: Transfer Techniques Teaching Recipient: Patient Teaching Methods: Discussion Response to Teaching: Verbalize Understanding Time/GCodes Time In: 800 Time Out: 900 Total Billed Treatment Time: 60 Total Billed Treatment Co-treat w/OT for 30m (800-130) 1, FA x4 (60m) ANDREA MILLIGAN DRAWING OPERATOR Oct 11, 2021 10:05
--- NOTE | 2021-10-11 12:37 | Cardiology Progress Note ---
Progress Note-Cardiology Events since last exam Date Seen by Provider: Oct 11, 2021 Time Seen by Provider: 12:35 Events since last exam I am following him due to atrial arrhythmias including possible atrial fibril lation. On 10/10 he was transferred to inpatient rehab. I have continued him on telemetry. His breathing is much better today. He denies chest discomfort, palpitations, syncope, or ankle edema. Certain portions of this document may have been dictated utilizing voice recognition technology. Inherent to this technology, typographical and grammatical errors may exist. As much as I am diligent to identify and correct these mistakes, some errors may remain in the document. Vitals Last set of Vitals Signs Vital Signs 10/11/21 10/11/21 10/11/21 07:33 10:39 12:06 Temp 36.6 Pulse 94 Resp 20 B/P (MAP) 140/66 (90) Pulse Ox 95 O2 Delivery Nasal Cannula O2 Flow Rate 4.00 Labs Labs Laboratory Tests 10/11/21 06:15 Exam Vital Signs Vital Signs Date Time Temp Pulse Resp B/P (MAP) Pulse Ox O2 Delivery O2 Flow Rate FiO2 10/11/21 12:06 94 10/11/21 10:39 95 Nasal Cannula 4.00 10/11/21 07:33 36.6 20 140/66 (90) Physical Exam General: Alert. No acute distress. Eye: No xanthelasma. HENT: Normocephalic. Neck: Jugular venous pressure does not appear elevated. Respiratory: Lungs are clear to auscultation but with diffusely decreased breath sounds. Respirations are non-labored. Breath sounds are equal. Symmetrical chest wall expansion. Cardiovascular: Normal rate. Regular rhythm. No murmur. No gallop. Trace bilateral pretibial edema. Gastrointestinal: Soft. Normal bowel sounds. Skin: Warm. Dry. Neurologic: Alert and oriented to person, place, time. Cranial nerves 3-11 grossly intact. Psychiatric: Cooperative. Appropriate mood & affect. Labs Laboratory Tests Test 10/10/21 15:21 10/10/21 20:10 10/11/21 05:25 10/11/21 06:15 Range/Units Glucometer 163 H 152 H 125 H 70-110 MG/DL White Blood Count 20.1 H 4.3-11.0 10^3/uL Red Blood Count 3.31 L 4.30-5.52 10^6/uL Hemoglobin 9.3 L 13.3-17.7 g/dL Hematocrit 29 L 40-54 % Mean Corpuscular Volume 88 80-99 fL Mean Corpuscular Hemoglobin 28 25-34 pg Mean Corpuscular Hemoglobin Concent 32 32-36 g/dL Red Cell Distribution Width 15.8 H 10.0-14.5 % Platelet Count 482 H 130-400 10^3/uL Mean Platelet Volume 10.2 9.0-12.2 fL Immature Granulocyte % (Auto) 14 % Neutrophils (%) (Auto) 79 H 42-75 % Lymphocytes (%) (Auto) 4 L 12-44 % Monocytes (%) (Auto) 4 0-12 % Eosinophils (%) (Auto) 0 0-10 % Basophils (%) (Auto) 1 0-10 % Neutrophils # (Auto) 15.8 H 1.8-7.8 10^3/uL Lymphocytes # (Auto) 0.8 L 1.0-4.0 10^3/uL Monocytes # (Auto) 0.7 0.0-1.0 10^3/uL Eosinophils # (Auto) 0.0 0.0-0.3 10^3/uL Basophils # (Auto) 0.1 0.0-0.1 10^3/uL Immature Granulocyte # (Auto) 2.7 H 0.0-0.1 10^3/uL Neutrophils % (Manual) 78 % Lymphocytes % (Manual) 7 % Monocytes % (Manual) 2 % Metamyelocytes % 2 % Myelocytes % 2 % Band Neutrophils 9 % Hypochromasia SLIGHT Anisocytosis SLIGHT Sodium Level 138 135-145 MMOL/L Potassium Level 3.8 3.6-5.0 MMOL/L Chloride Level 107 98-107 MMOL/L Carbon Dioxide Level 22 21-32 MMOL/L Anion Gap 9 5-14 MMOL/L Blood Urea Nitrogen 24 H 7-18 MG/DL Creatinine 0.78 0.60-1.30 MG/DL Estimat Glomerular Filtration Rate 96 BUN/Creatinine Ratio 31 Glucose Level 128 H 70-105 MG/DL Calcium Level 7.8 L 8.5-10.1 MG/DL Corrected Calcium 9.0 8.5-10.1 MG/DL Total Bilirubin 0.4 0.1-1.0 MG/DL Aspartate Amino Transf (AST/SGOT) 29 5-34 U/L Alanine Aminotransferase (ALT/SGPT) 38 0-55 U/L Alkaline Phosphatase 79 40-136 U/L Total Protein 5.2 L 6.4-8.2 GM/DL Albumin 2.5 L 3.2-4.5 GM/DL Procalcitonin 2.38 H <0.10 NG/ML Test 10/11/21 11:00 Range/Units Glucometer 136 H 70-110 MG/DL Diagnosis/Problems Diagnosis/Problems (1) Paroxysmal atrial fibrillation Status: Acute Assessment & Plan: He initially was having sinus tachycardia and multifocal atrial tachycardia but towards the end of his acute hospitalization, he may have had at least a few episodes of atrial fibrillation. I placed the patient on rivaroxaban for stroke prophylaxis. He is on diltiazem for rate control. This morning he was back in sinus rhythm on telemetry. If he remains in sinus rhythm, we may be able to discontinue telemetry. (2) Multifocal atrial tachycardia Status: Acute Assessment & Plan: As above, he was predominantly having multifocal atrial tachycardia. Now he is back in sinus rhythm. I recommend he continue on diltiazem. (3) Primary hypertension Status: Chronic Assessment & Plan: His blood pressure is reasonably controlled with diltiazem. (4) Mixed hyperlipidemia Status: Chronic Assessment & Plan: Continue atorvastatin which she was taking at home. (5) Acute kidney injury Status: Acute Assessment & Plan: His renal function now seems to have stabilized. SHERRI CHO JR, MD Oct 11, 2021 12:37
--- NOTE | 2021-10-11 13:13 | Speech Therapy Daily Note ---
Speech Daily Progress Note Subjective Date Seen by Provider: Oct 11, 2021 Time Seen by Provider: 09:30 The patient was seated upright in his recliner upon entrance to the room. The patient greeted the clinician and was agreeable to participation in the cognitive linguistic treatment session. Objective - Orientation: The patient remains independently oriented to city, state, month, day of week, and year. The patient required one verbal cue to identify the accurate date. - Functional Recall: The patient and clinician reviewed his daily schedule, routine and what may be expected of him upon his return home. The patient stated he lives with his however she is weak following a stroke she experienced approximately one year ago. The patient does have adult children who live near him and may be able to help throughout the process. The patient stated he has two stairs to enter the home and walkers fit throughout the doorways. The patient remains driving. Barriers to a safe return home were discussed, specifically the independence necessary to complete ADL's, independently. Assessment Assessment Current Status: Good Progress Treatment Plan Continue Plan of Care Speech Short Term Goals Short Term Goals Short Term Goals 1. The patient will display 80% accuracy with problem solving exercises, independently. 2. The patient will demonstrate 80% accuracy with memory exercises, independently. Time Frame-STG: One Week Speech Group Home Goals Group Home Goals 1. The patient will display increased cognitive linguistic abilities for improved independence with ADL's in the least restrictive environment. Time Frame: Two Weeks Speech-Plan Treatment Plan Speech Therapy Treatment Plan: Continue Plan of Care Treatment Duration: Nov 07, 2021 Frequency: 4 times per week (Four to five times per week.) Estimated Hrs Per Day: .5 hour per day Rehab Potential: Fair Pt/Family Agrees to Plan: Yes Safety Risks/Education Teaching Recipient: Patient Teaching Methods: Discussion Response to Teaching: Verbalize Understanding Education Topics Provided: Plan of care, Rehabilitation process Time Speech Therapy Time In: 09:30 Speech Therapy Time Out: 10:00 Total Billed Time: 30 Billed Treatment Time PATRICIO Gómez [facility] Oct 11, 2021 13:13
[2021-10-11 14:30] VITALS: BP 119/62
--- NOTE | 2021-10-11 15:28 | Physical Therapy Daily Note ---
PT Daily Note-Current Subjective Pt sitting in recliner upon arrival. Pt's family is present. Pt agrees to PT. Pain Location: No Pain Reported Mental Status Patient Orientation: Person, Place, Time, Situation Attachments: Oxygen Transfers SCALE: Activities may be completed with or without assistive devices. 9-Evvdpisinq-dwucxgp completes the activity by him/herself with no assistance from a helper. 5-Set-up or Clean-up Assistance-helper sets up or cleans up; patient completes activity. [place] assists only prior to or following the activity. 4-Supervision or Touching Assistance-helper provides verbal cues and/or touching/steadying and/or contact guard assistance as patient completes activity. Assistance may be provided throughout the activity or intermittently. 3-Partial/Moderate Assistance-helper does LESS THAN HALF the effort. [place] lifts, holds or supports trunk or limbs, but provides less than half the effort. 2-Substantial/Maximal Assistance-helper does MORE THAN HALF the effort. [place] lifts or holds trunk or limbs and provides more than half the effort. 2-[place]jl[place]-rvaaxu does ALL the effort. Patient does none of the effort to complete the activity. Or, the assistance of 2 or more helpers is required for the patient to complete the activity. If activity was not attempted, code reason: 7-Patient Refused. 9-Not Applicable-not attempted and the patient did not perform the activity before the current illness, exacerbation or injury. 10-Not Attempted due to Environmental Limitations-(lack of equipment, weather restraints, etc.). 88-Not Attempted due to Medical Conditions or Safety Concerns. Sit to Lying (QC): 4 Sit to Stand (QC): 5 Weight Bearing Right Lower Extremity: Right Weight Bearing/Tolerated Left Lower Extremity: Left Weight Bearing/Tolerated Treatments Nurse needs pt in bed for EEG so BOILER ENGINEER assists pt into bed. Family asks about pt's progress and what Rehab will try to accomplish. Pt having EEG at end of tx. All needs met, call light in hand. Assessment Current Status: Fair Progress Pt fatigues and O2 drops easily with little exertion. PT Short Term Goals Short Term Goals Time Frame: Oct 17, 2021 Roll Left & Right: 6 Sit to lyin Lying to sitting on side of be: 4 Sit to stand: 4 (SBA) Chair/xct-ea-xfrif transfer: 4 (SBA) Walk 10 feet: 4 Walk 50 feet with two turns: 4 Walk 150 feet: 4 PT Industrial Chemist Goals Industrial Chemist Goals PT Industrial Chemist Goals Time Frame: Oct 31, 2021 Roll Left & Right (QC): 6 Sit to Lying (QC): 6 Lying-Sitting on Side/Bed(QC): 6 Sit to Stand (QC): 6 Chair/Qik-nf-Lndet Xfer(QC): 6 Toilet Transfer (QC): 6 Car Transfer (QC): 3 Does the Patient Walk: Yes Walk 10 feet (QC): 6 Walk 50ft with 2 Turns (QC): 6 Walk 150 ft (QC): 6 Walking 10ft on Uneven Surface: 4 1 Step (curb) (QC): 4 4 Steps (QC): 4 12 Steps (QC): 88 Picking up an Object (QC): 4 Wheel 50 feet with 2 turns (QC: 9 Wheel 150 feet: 9 PT Plan Problem List Problem List: Activity Tolerance, Functional Strength Treatment/Plan Treatment Plan: Continue Plan of Care Treatment Plan: Bed Mobility, Education, Functional Activity Tatiana, Functional Strength, Group Therapy, Gait, Safety, Therapeutic Exercise, Transfers Treatment Duration: Oct 31, 2021 Frequency: At least 5 of 7 days/Wk (IRF) Estimated Hrs Per Day: 1.5 hours per day Patient and/or Family Agrees t: Yes Safety Risks/Education Patient Education: Transfer Techniques Teaching Recipient: Patient Teaching Methods: Discussion Response to Teaching: Verbalize Understanding Time/GCodes Time In: 1400 Time Out: 1415 Total Billed Treatment Time: 15 Total Billed Treatment 1, FA (15m) ANDREA MILLIGAN PTA Oct 11, 2021 15:28
[2021-10-11] MEDS: RIVAROXABAN 20 MG TABLET (XARELTO) PO SCH (17:28)
[2021-10-11 20:00] VITALS: BP 150/72
[2021-10-12] MEDS: CEFEPIME INJECTION 1,000 MG in NS (IVPB) 50 ML IV SCH ×4 (00:28→18:02)
[2021-10-12] MEDS: RT-ALBUTEROL/IPRATROPIUM 3 ML (DUONEB) VIAL INH SCH ×6 (03:40→22:05)
[2021-10-12] MEDS: inSUlin ASPART (NovoLOG) 1 UNIT/0.01 ML (CHARGE PER UNIT) SC SCH ×4 (05:52→20:56)
[2021-10-12] MEDS: methylPREDNISolone 40 MG/ML (Solu-MEDROL) VIAL IV SCH ×2 (06:11→21:00)
--- NOTE | 2021-10-12 07:19 | PM&R Progress Note ---
Subjective HPI/CC On Admission Date Seen by Provider: Oct 12, 2021 Time Seen by Provider: 12:00 Subjective/Events-last exam 10/12/21: Pt dramatically improved Dr. Ford is monitoring Accapella is being used 4L of of O2 now Voiding well since Catheter removed Took a shower today he feels much better 10/11/21: Pt doing a lot better today Bowels are moving Catheter was discontinued Blood pressure is doing okay White count 20,000 from steroid Hemoglobin is 9.3 Remains on 4-6L of O2 and does increase with exertion Overall, much improved Review of Systems General: Fatigue, Malaise Pulmonary: Dyspnea Objective Exam Vital Signs Vital Signs Date Time Temp Pulse Resp B/P (MAP) Pulse Ox O2 Delivery O2 Flow Rate FiO2 10/13/21 02:31 98 Nasal Cannula 4.00 10/12/21 19:45 36.4 101 20 135/75 (95) Capillary Refill : General Appearance: WD/WN, Anxious, Chronically ill, Mild Distress HEENT: PERRL/EOMI, Normal ENT Inspection, Pharynx Normal Neck: Full Range of Motion, Normal Inspection, Non Tender, Supple, Carotid Bruit Respiratory: Chest Non Tender, No Respiratory Distress, Accessory Muscle Use, Decreased Breath Sounds, Rales, Wheezing Cardiovascular: Regular Rate, Rhythm, No Edema, No Gallop, No JVD, No Murmur, Normal Peripheral Pulses Gastrointestinal: Normal Bowel Sounds, No Organomegaly, No Pulsatile Mass, Non Tender, Soft Back: Normal Inspection, No CVA Tenderness, No Vertebral Tenderness Extremity: Normal Capillary Refill, Normal Inspection, Normal Range of Motion, Non Tender, No Calf Tenderness, No Pedal Edema Neurologic/Psychiatric: Alert, Oriented x3, No Motor/Sensory Deficits, Normal Mood/Affect Skin: Normal Color, Warm/Dry Lymphatic: No Adenopathy Results/Procedures Lab Patient resulted labs reviewed. FIM Transfers Therapy Code Descriptions/Definitions Functional [place] Measure: 0=Not Assessed/NA 4=Minimal Assistance 1=Total Assistance 5=Supervision or Setup 2=Maximal Assistance 6=Modified [place] 3=Moderate Assistance 7=Complete IndependenceSCALE: Activities may be completed with or without assistive devices. 3-Dafbzacxaz-izzaqyj completes the activity by him/herself with no assistance from a helper. 5-Set-up or Clean-up Assistance-helper sets up or cleans up; patient completes activity. [place] assists only prior to or following the activity. 4-Supervision or Touching Assistance-helper provides verbal cues and/or touching/steadying and/or contact guard assistance as patient completes activity. Assistance may be provided throughout the activity or intermittently. 3-Partial/Moderate Assistance-helper does LESS THAN HALF the effort. [place] lifts, holds or supports trunk or limbs, but provides less than half the effort. 2-Substantial/Maximal Assistance-helper does MORE THAN HALF the effort. [place] lifts or holds trunk or limbs and provides more than half the effort. 1-Qeitlkxvm-dsvryp does ALL the effort. Patient does none of the effort to complete the activity. Or, the assistance of 2 or more helpers is required for the patient to complete the activity. If activity was not attempted, code reason: 7-Patient Refused. 9-Not Applicable-not attempted and the patient did not perform the activity before the current illness, exacerbation or injury. 10-Not Attempted due to Environmental Limitations-(lack of equipment, weather restraints, etc.). 88-Not Attempted due to Medical Conditions or Safety Concerns. Roll Left to Right (QC): 6 Sit to Lying (QC): 4 Sit to Stand (QC): 5 Chair/Aff-ni-Pyrrs Xfer(QC): 4 Car Transfer (QC): 3 Gait Training Does the Patient Walk?: Yes Walk 10 feet (QC): 4 Walk 50 ft with 2 Turns(QC): 4 Walk 150 ft (QC): 88 Walking 10ft/uneven surface-QC: 88 Gait Persons Needed: 1 Gait Assistive Device: FWW Wheelchair Training Does the Pt Use a Wheelchair?: Yes Wheel 50 ft with 2 turns (QC): 1 Wheel 150 ft (QC): 1 Type of Wheelchair: Manual Stair Training 1 Step (curb) (QC): 88 4 Steps (QC): 88 12 Steps (QC): 88 Balance Picking up an Object (QC): 88 ADL-Treatment Eating (QC): 6 (Independent with set up and uses regular utensils to eat.) Oral Hygiene (QC): 4 Shower/Bathe Self (QC): 3 Upper Body Dressing (QC): 10 Lower Body Dressing (QC): 2 On/Off Footwear (QC): 3 Toileting Hygiene (QC): 3 (mod A) Toilet Transfer (QC): 4 Assessment/Plan Assessment and Plan Assess & Plan/Chief Complaint Assessment: Debility New onset AF w/recent RVR Active wheezing AECOPD Hypoxia PNA s/p septic shock CHAZ HTN Hypoxemia Plan: Monitor closely IV steroids IV abx DC cath tomorrow Supportive care 10/11/21: Monitor closely Cath DC 10/12/21: Doing extremely well Monitor closely (1) Paroxysmal atrial fibrillation Status: Acute Assessment & Plan: He initially was having sinus tachycardia and multifocal atrial tachycardia but towards the end of his acute hospitalization, he may have had at least a few episodes of atrial fibrillation. I placed the patient on rivaroxaban for stroke prophylaxis. He is on diltiazem for rate control. This morning he was back in sinus rhythm on telemetry. If he remains in sinus rhythm, we may be able to discontinue telemetry. (2) Multifocal atrial tachycardia Status: Acute Assessment & Plan: As above, he was predominantly having multifocal atrial tachycardia. Now he is back in sinus rhythm. I recommend he continue on diltiazem. (3) Primary hypertension Status: Chronic Assessment & Plan: His blood pressure is reasonably controlled with diltiazem. (4) Mixed hyperlipidemia Status: Chronic Assessment & Plan: Continue atorvastatin which she was taking at home. (5) Acute kidney injury Status: Acute Assessment & Plan: His renal function now seems to have stabilized. FRANCISCO BHAKTA DO Oct 12, 2021 07:19
[2021-10-12 07:22] VITALS: BP 152/72
[2021-10-12] MEDS: DOCUSATE SODIUM 100 MG (COLACE) CAP PO SCH ×2 (08:11→20:57)
[2021-10-12] MEDS: SENNA W/DOCUSATE (SENOKOT S) TABLET PO SCH ×2 (08:12→20:57)
[2021-10-12] MEDS: polyethylene glycoL POWDER 17 GM (MIRALAX) PACK PO SCH ×2 (08:12→20:50)
[2021-10-12] MEDS: SENNOSIDES 8.6 MG (SENOKOT) TAB PO SCH ×2 (08:12→20:57)
[2021-10-12] MEDS: PANTOPRAZOLE 40 MG (PROTONIX) TAB PO SCH (08:12)
--- NOTE | 2021-10-12 08:54 | Physical Therapy Daily Note ---
PT Daily Note-Current Subjective Pt. up in recliner , has not had breakfast yet, [facility]. States its difficult for him to understand why he feels SOA but his sats are OK. Pt. shares some challenges he is having at home with plumbing repairs etc as well as his having had a CVA on Pain Location: No Pain Reported Mental Status Patient Orientation: Normal For Age Attachments: Oxygen (4.5 L) Transfers SCALE: Activities may be completed with or without assistive devices. 5-Abgiitqfaw-npoweil completes the activity by him/herself with no assistance from a helper. 5-Set-up or Clean-up Assistance-helper sets up or cleans up; patient completes activity. [place] assists only prior to or following the activity. 4-Supervision or Touching Assistance-helper provides verbal cues and/or touching/steadying and/or contact guard assistance as patient completes activity. Assistance may be provided throughout the activity or intermittently. 3-Partial/Moderate Assistance-helper does LESS THAN HALF the effort. [place] lifts, holds or supports trunk or limbs, but provides less than half the effort. 2-Substantial/Maximal Assistance-helper does MORE THAN HALF the effort. [place] lifts or holds trunk or limbs and provides more than half the effort. 3-Kaiinbwpw-lavczk does ALL the effort. Patient does none of the effort to complete the activity. Or, the assistance of 2 or more helpers is required for the patient to complete the activity. If activity was not attempted, code reason: 7-Patient Refused. 9-Not Applicable-not attempted and the patient did not perform the activity before the current illness, exacerbation or injury. 10-Not Attempted due to Environmental Limitations-(lack of equipment, weather restraints, etc.). 88-Not Attempted due to Medical Conditions or Safety Concerns. Sit to Stand (QC): 5 Chair/Seq-xw-Dkxde Xfer(QC): 5 Toilet Transfer (QC): 5 Weight Bearing Right Lower Extremity: Right Weight Bearing/Tolerated Left Lower Extremity: Left Weight Bearing/Tolerated Gait Training Does the Patient Walk?: Yes Walk 10 feet (QC): 5 Gait Persons Needed: 1 Gait Assistive Device: FWW pt. ambulated 3 xs with portable O2 insitu at 4.5 L. 1st leg pts sats on O2 stayed >09% 2nd leg of gait as well from bthroo to dining talbe for brkfst but 3rd leg of gait dining table to room O2 sats dropped from 98% at rest to 83% with HR 112. Pt. rested in recliner for 1 min with O2 sats recovering to 93% and HR 90. Exercises Supine Ex: Ankle pumps, Quad Set, Glut sets Supine Reps: 15 Seated Therapy Exercises: Ankle pumps, Sit to stand, Long arc quads, Hip flexion Seated Reps: 15 Treatments in [facility], pt had BM and required max assist clean up as well as brief change with was soiled. Pt. states he is aware when he needs to urinate but finds it difficult to get up and take care of it every time. Mod assist to doff brief, max assisst to enriqueta. Pt. used acapella during Rx and seemed to provoke coughing. Pt. ambulated to dining area, and ate 100% breakfast , home safety education ad seated LE ex were reviewed Assessment Current Status: Good Progress desats with activity but moves well with no LOB, manages walker well , heavy wt bearing on FWW, flexed at trunk PT Short Term Goals Short Term Goals Time Frame: Oct 17, 2021 Roll Left & Right: 6 Sit to lyin Lying to sitting on side of be: 4 Sit to stand: 4 (SBA) Chair/lwe-pu-cthra transfer: 4 (SBA) Walk 10 feet: 4 Walk 50 feet with two turns: 4 Walk 150 feet: 4 PT Correction Goals Day Light Relief Operator Goals PT Day Light Relief Operator Goals Time Frame: Oct 31, 2021 Roll Left & Right (QC): 6 Sit to Lying (QC): 6 Lying-Sitting on Side/Bed(QC): 6 Sit to Stand (QC): 6 Chair/Owy-xm-Pqeec Xfer(QC): 6 Toilet Transfer (QC): 6 Car Transfer (QC): 3 Does the Patient Walk: Yes Walk 10 feet (QC): 6 Walk 50ft with 2 Turns (QC): 6 Walk 150 ft (QC): 6 Walking 10ft on Uneven Surface: 4 1 Step (curb) (QC): 4 4 Steps (QC): 4 12 Steps (QC): 88 Picking up an Object (QC): 4 Wheel 50 feet with 2 turns (QC: 9 Wheel 150 feet: 9 PT Plan Treatment/Plan Treatment Plan: Continue Plan of Care Treatment Plan: Bed Mobility, Education, Functional Activity Tatiana, Functional Strength, Group Therapy, Gait, Safety, Therapeutic Exercise, Transfers Treatment Duration: Oct 31, 2021 Frequency: At least 5 of 7 days/Wk (IRF) Estimated Hrs Per Day: 1.5 hours per day Patient and/or Family Agrees t: Yes Safety Risks/Education Patient Education: Gait Training, Transfer Techniques, Correct Positioning, Disease Process, Safety Issues Teaching Recipient: Patient Teaching Methods: Demonstration, Discussion Response to Teaching: Verbalize Understanding, Return Demonstration, Reinforcement Needed Time/GCodes Time In: 745 Time Out: 900 Total Billed Treatment Time: 75 Total Billed Treatment 1,FA40m,EX15m,GT20m STEPHANI MOTTA PAPER PROCESSING MACHINE HELPER Oct 12, 2021 08:54
--- NOTE | 2021-10-12 10:28 | Cardiology Progress Note ---
Progress Note-Cardiology Events since last exam Date Seen by Provider: Oct 12, 2021 Time Seen by Provider: 10:26 Events since last exam I am following him due to tachycardia with atrial arrhythmias and possible atrial fibrillation. He is still getting fairly short of breath when he gets up and walks. He denies chest discomfort, palpitations, or syncope. He still has some mild ankle edema. His cough is improving. Certain portions of this document may have been dictated utilizing voice recognition technology. Inherent to this technology, typographical and grammatical errors may exist. As much as I am diligent to identify and correct these mistakes, some errors may remain in the document. Vitals Last set of Vitals Signs Vital Signs 10/12/21 10/12/21 07:22 10:37 Temp 36.6 Pulse 73 Resp 22 B/P (MAP) 152/72 (98) Pulse Ox 97 O2 Delivery Nasal Cannula O2 Flow Rate 4.00 Exam Vital Signs Vital Signs Date Time Temp Pulse Resp B/P (MAP) Pulse Ox O2 Delivery O2 Flow Rate FiO2 10/12/21 10:37 97 Nasal Cannula 4.00 10/12/21 07:22 36.6 73 22 152/72 (98) Physical Exam General: Alert. No acute distress. He is obese. He is wearing oxygen by nasal cannula. Eye: No xanthelasma. HENT: Normocephalic. Neck: Jugular venous pressure does not appear elevated. Respiratory: Lungs have diffuse wheezes. Respirations are non-labored. Breath sounds are equal. Symmetrical chest wall expansion. Cardiovascular: Normal rate. Regular rhythm. No murmur. No gallop. 1+ bilateral pretibial edema. Gastrointestinal: Soft. Normal bowel sounds. Skin: Warm. Dry. Neurologic: Alert and oriented to person, place, time. Cranial nerves 3-11 grossly intact. Psychiatric: Cooperative. Appropriate mood & affect. Labs Laboratory Tests Test 10/11/21 15:46 10/11/21 20:09 10/12/21 05:19 10/12/21 11:14 Range/Units Glucometer 134 H 159 H 121 H 179 H 70-110 MG/DL Diagnosis/Problems Diagnosis/Problems (1) Paroxysmal atrial fibrillation Status: Acute Assessment & Plan: He initially was having sinus tachycardia and multifocal atrial tachycardia but towards the end of his acute hospitalization, he may have had at least a few episodes of atrial fibrillation. I placed the patient on rivaroxaban for stroke prophylaxis. He is on diltiazem for rate control. He seems to be remaining in sinus rhythm since being transferred to inpatient rehab. I will now discontinue telemetry. (2) Multifocal atrial tachycardia Status: Acute Assessment & Plan: As above, he was predominantly having multifocal atrial tachycardia. Now he is back in sinus rhythm. I recommend he continue on diltiazem. (3) Primary hypertension Status: Chronic Assessment & Plan: His blood pressure is reasonably controlled with diltiazem although intermittently elevated. If his blood pressure remains elevated, I would consider increasing the diltiazem. (4) Mixed hyperlipidemia Status: Chronic Assessment & Plan: Continue atorvastatin which he was taking at home. (5) Acute kidney injury Status: Acute Assessment & Plan: His renal function now seems to have stabilized. SHERRI CHO JR, MD Oct 12, 2021 10:28
--- NOTE | 2021-10-12 11:14 | Speech Therapy Daily Note ---
Speech Daily Progress Note Subjective Date Seen by Provider: Oct 12, 2021 Time Seen by Provider: 09:30 The patient was seated upright in his recliner, awake and alert, upon entrance to his room. The patient greeted the clinician appropriately and was agreeable to participation in the cognitive linguistic treatment session. Objective - Orientation: The patient was independently oriented to city, state, location, month, day of week, and year. The patient required one verbal cue from the clinician for date. - "What's Wrong?" Photographs: The patient was presented photographs to compare with images missing or not present in one photograph which are present in the second. The patient displayed excellent attention to task which is necessary (attention) to complete multi-step sequences presented by physical therapy and occupational therapy. The patient completed the exercise with high accuracy and mild clinician verbal cueing. 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 Assessment Assessment Current Status: Good Progress Treatment Plan Continue Plan of Care Speech Short Term Goals Short Term Goals Short Term Goals 1. The patient will display 80% accuracy with problem solving exercises, independently. 2. The patient will demonstrate 80% accuracy with memory exercises, independently. Time Frame-STG: One Week Speech Fci Goals Plastic Duplicator Goals 1. The patient will display increased cognitive linguistic abilities for improved independence with ADL's in the least restrictive environment. Time Frame: Two Weeks Speech-Plan Treatment Plan Speech Therapy Treatment Plan: Continue Plan of Care Treatment Duration: Nov 07, 2021 Frequency: 4 times per week (Four to five times per week.) Estimated Hrs Per Day: .5 hour per day Rehab Potential: Fair Pt/Family Agrees to Plan: Yes Safety Risks/Education Teaching Recipient: Patient Teaching Methods: Discussion Response to Teaching: Verbalize Understanding Education Topics Provided: Plan of care discussions. Time Speech Therapy Time In: 09:30 Speech Therapy Time Out: 10:00 Total Billed Time: 30 Billed Treatment Time 1TANAPIA Stephanie WILLIAMCECELIA ST Oct 12, 2021 11:14
--- NOTE | 2021-10-12 12:08 | Occupational Ther Daily Note ---
OT Current Status-Daily Note Subjective Pt alert, sitting in recliner. Pt agrees to therapy. Pt takes increased time to complete all tasks due to extreme low stamina and SOA and lengthy recovery time. Mental Status/Objective Patient Orientation: Person, Place, Time, Situation Attachments: IV (PICC), Oxygen (4L) ADL-Treatment Pt agrees to shower. W/c to shower, SBA for SPT into shower. Sitting on shower bench, pt able to complete shower using hand held shower and grabbars then letting water just run over feet, assist to dry feet. After set up, pt able to complete UB dressing by self. SBA after set up for LB dressing. Pt able to don/doff socks by self, assist for LIZZETTE hose. Independent with oral care sitting at toilet. Therapy Code Descriptions/Definitions Functional [place] Measure: 0=Not Assessed/NA 4=Minimal Assistance 1=Total Assistance 5=Supervision or Setup 2=Maximal Assistance 6=Modified [place] 3=Moderate Assistance 7=Complete IndependenceSCALE: Activities may be completed with or without assistive devices. 4-Kwzuxzfhkq-ufeehnc completes the activity by him/herself with no assistance from a helper. 5-Set-up or Clean-up Assistance-helper sets up or cleans up; patient completes activity. [place] assists only prior to or following the activity. 4-Supervision or Touching Assistance-helper provides verbal cues and/or touching/steadying and/or contact guard assistance as patient completes activity. Assistance may be provided throughout the activity or intermittently. 3-Partial/Moderate Assistance-helper does LESS THAN HALF the effort. [place] lifts, holds or supports trunk or limbs, but provides less than half the effort. 2-Substantial/Maximal Assistance-helper does MORE THAN HALF the effort. [place] lifts or holds trunk or limbs and provides more than half the effort. 0-Comledtnq-hjjxwh does ALL the effort. Patient does none of the effort to complete the activity. Or, the assistance of 2 or more helpers is required for the patient to complete the activity. If activity was not attempted, code reason: 7-Patient Refused. 9-Not Applicable-not attempted and the patient did not perform the activity before the current illness, exacerbation or injury. 10-Not Attempted due to Environmental Limitations-(lack of equipment, weather restraints, etc.). 88-Not Attempted due to Medical Conditions or Safety Concerns. Oral Hygiene (QC): 6 Shower/Bathe Self (QC): 3 Upper Body Dressing (QC): 5 Lower Body Dressing (QC): 5 On/Off Footwear: 3 Other Treatment Pursed lip breathing technique education with exercises and when SOA. Pt has difficulty with breathing in through nose and out through mouth. Pt able to complete 2 B shldr exercises 1 set 10 reps, increase SOA with each. After session, pt sitting in recliner with call light/phone in reach. All needs met in room. OT Short Term Goals Short Term Goals Time Frame: Oct 19, 2021 Eatin Oral hygiene: 5 Toileting hygiene: 4 Shower/bathe self: 4 Upper body dressin Lower body dressin Putting on/taking off footwear: 4 OT Custodial Goals Custodial Goals Time Frame: Oct 26, 2021 Eating (QC): 6 Oral Hygiene (QC): 6 Toileting Hygiene (QC): 6 Shower/Bathe Self (QC): 5 Upper Body Dressing (QC): 5 Lower Body Dressing (QC): 5 On/Off Footwear (QC): 5 1=Demonstrate adherence to instructed precautions during ADL tasks. 2=Patient will verbalize/demonstrate understanding of assistive devices/modifications for ADL. 3=Patient will improve strength/tolerance for activity to enable patient to perform ADL's. OT Education/Plan Problem List/Assessment Assessment: Decreased Activ Tolerance, Decreased UE Strength, Impaired Self- Care Skills Discharge Recommendations Plan/Recommendations: Continue POC Treatment Plan/Plan of Care Patient would benefit from OT for education, treatment and training to promote independence in ADL's, mobility, safety and/or upper extremity function for ADL's. Plan of Care: ADL Retraining, Functional Mobility, Group Exercise/Act as Ind, UE Funct Exercise/Act, W/C Management Training Treatment Duration: Oct 26, 2021 Frequency: At least 5 of 7 days/Wk (IRF) Estimated Hrs Per Day: 1.5 hours per day Agreement: Yes Rehab Potential: Fair Time/GCodes Start Time: 11:00 Stop Time: 12:15 Total Time Billed (hr/min): 75 Billed Treatment Time 1 visit-ADL 4 (60 min) EX 1 (15 min) HERNANDEZ MEDELLIN Oct 12, 2021 12:08
[2021-10-12] MEDS: RIVAROXABAN 20 MG TABLET (XARELTO) PO SCH (17:39)
[2021-10-12 19:45] VITALS: BP 135/75
[2021-10-13] MEDS: CEFEPIME INJECTION 1,000 MG in NS (IVPB) 50 ML IV SCH ×4 (00:19→17:31)
[2021-10-13] MEDS: RT-ALBUTEROL/IPRATROPIUM 3 ML (DUONEB) VIAL INH SCH ×5 (02:31→18:59)
[2021-10-13] MEDS: inSUlin ASPART (NovoLOG) 1 UNIT/0.01 ML (CHARGE PER UNIT) SC SCH ×4 (06:01→20:46)
[2021-10-13 08:37] VITALS: BP 147/65
[2021-10-13] MEDS: PANTOPRAZOLE 40 MG (PROTONIX) TAB PO SCH (08:42)
[2021-10-13] MEDS: polyethylene glycoL POWDER 17 GM (MIRALAX) PACK PO SCH ×2 (08:43→20:49)
[2021-10-13] MEDS: SENNOSIDES 8.6 MG (SENOKOT) TAB PO SCH ×2 (08:43→20:47)
[2021-10-13] MEDS: methylPREDNISolone 40 MG/ML (Solu-MEDROL) VIAL IV SCH ×2 (08:43→20:51)
[2021-10-13] MEDS: SENNA W/DOCUSATE (SENOKOT S) TABLET PO SCH ×2 (08:43→20:47)
[2021-10-13] MEDS: DOCUSATE SODIUM 100 MG (COLACE) CAP PO SCH ×2 (08:43→20:47)
--- NOTE | 2021-10-13 09:45 | PM&R Progress Note ---
Subjective HPI/CC On Admission Date Seen by Provider: Oct 13, 2021 Time Seen by Provider: 13:30 Subjective/Events-last exam 10/13/2021: Patient doing better Oxygen down to 3 L Gave Lasix 20 mg IV after I conferred with Dr. Colon Edema noted Labs revealed white count elevated due to steroid effect Antibiotics still on board LIZZETTE israel Had BM yesterday Wheezing noted but no coarseness Urinary retention management 10/12/21: Pt dramatically improved Dr. Ford is monitoring Accapella is being used 4L of of O2 now Voiding well since Catheter removed Took a shower today he feels much better 10/11/21: Pt doing a lot better today Bowels are moving Catheter was discontinued Blood pressure is doing okay White count 20,000 from steroid Hemoglobin is 9.3 Remains on 4-6L of O2 and does increase with exertion Overall, much improved Review of Systems Pulmonary: Dyspnea, Cough Objective Exam Vital Signs Vital Signs Date Time Temp Pulse Resp B/P (MAP) Pulse Ox O2 Delivery O2 Flow Rate FiO2 10/13/21 14:58 97 Nasal Cannula 3.00 10/13/21 11:16 36.5 101 32 10/13/21 08:37 20 147/65 (92) Capillary Refill : General Appearance: WD/WN, Anxious, Chronically ill, Mild Distress HEENT: PERRL/EOMI, Normal ENT Inspection, Pharynx Normal Neck: Full Range of Motion, Normal Inspection, Non Tender, Supple, Carotid Bruit Respiratory: Chest Non Tender, No Respiratory Distress, Accessory Muscle Use, Decreased Breath Sounds, Rales, Wheezing Cardiovascular: Regular Rate, Rhythm, No Edema, No Gallop, No JVD, No Murmur, Normal Peripheral Pulses Gastrointestinal: Normal Bowel Sounds, No Organomegaly, No Pulsatile Mass, Non Tender, Soft Back: Normal Inspection, No CVA Tenderness, No Vertebral Tenderness Extremity: Normal Capillary Refill, Normal Inspection, Normal Range of Motion, Non Tender, No Calf Tenderness, No Pedal Edema Neurologic/Psychiatric: Alert, Oriented x3, No Motor/Sensory Deficits, Normal Mood/Affect Skin: Normal Color, Warm/Dry Lymphatic: No Adenopathy Results/Procedures Lab Laboratory Tests 10/13/21 10:11 Patient resulted labs reviewed. FIM Transfers Therapy Code Descriptions/Definitions Functional [place] Measure: 0=Not Assessed/NA 4=Minimal Assistance 1=Total Assistance 5=Supervision or Setup 2=Maximal Assistance 6=Modified [place] 3=Moderate Assistance 7=Complete IndependenceSCALE: Activities may be completed with or without assistive devices. 9-Mjuhqalyhy-lpfbdmr completes the activity by him/herself with no assistance from a helper. 5-Set-up or Clean-up Assistance-helper sets up or cleans up; patient completes activity. [place] assists only prior to or following the activity. 4-Supervision or Touching Assistance-helper provides verbal cues and/or t ouching/steadying and/or contact guard assistance as patient completes activity. Assistance may be provided throughout the activity or intermittently. 3-Partial/Moderate Assistance-helper does LESS THAN HALF the effort. [place] lifts, holds or supports trunk or limbs, but provides less than half the effort. 2-Substantial/Maximal Assistance-helper does MORE THAN HALF the effort. [place] lifts or holds trunk or limbs and provides more than half the effort. 1-Zugesfqnh-mkhgqk does ALL the effort. Patient does none of the effort to complete the activity. Or, the assistance of 2 or more helpers is required for the patient to complete the activity. If activity was not attempted, code reason: 7-Patient Refused. 9-Not Applicable-not attempted and the patient did not perform the activity before the current illness, exacerbation or injury. 10-Not Attempted due to Environmental Limitations-(lack of equipment, weather restraints, etc.). 88-Not Attempted due to Medical Conditions or Safety Concerns. Roll Left to Right (QC): 6 Sit to Lying (QC): 4 Sit to Stand (QC): 5 Chair/Yxb-hw-Jggfx Xfer(QC): 5 Car Transfer (QC): 3 Gait Training Does the Patient Walk?: Yes Walk 10 feet (QC): 5 Walk 50 ft with 2 Turns(QC): 4 Walk 150 ft (QC): 88 Walking 10ft/uneven surface-QC: 88 Gait Persons Needed: 1 Gait Assistive Device: FWW Wheelchair Training Does the Pt Use a Wheelchair?: Yes Wheel 50 ft with 2 turns (QC): 1 Wheel 150 ft (QC): 1 Type of Wheelchair: Manual Stair Training 1 Step (curb) (QC): 88 4 Steps (QC): 88 12 Steps (QC): 88 Balance Picking up an Object (QC): 88 ADL-Treatment Eating (QC): 6 (Independent with set up and uses regular utensils to eat.) Oral Hygiene (QC): 6 Shower/Bathe Self (QC): 3 Upper Body Dressing (QC): 5 Lower Body Dressing (QC): 5 On/Off Footwear (QC): 3 Toileting Hygiene (QC): 3 (mod A) Toilet Transfer (QC): 4 Assessment/Plan Assessment and Plan Assess & Plan/Chief Complaint Assessment: Debility New onset AF w/recent RVR Active wheezing AECOPD Hypoxia PNA s/p septic shock CHAZ HTN Hypoxemia Urinary retention 10/13/21 Volume overload giving Lasix 20mg IV x 1 Plan: Monitor closely IV steroids IV abx DC cath tomorrow Supportive care 10/11/21: Monitor closely Cath DC 10/12/21: Doing extremely well Monitor closely 10/13/21: Lasix 20mgIV x [address] Colon Urinary retention management (1) Paroxysmal atrial fibrillation Status: Acute Assessment & Plan: He initially was having sinus tachycardia and multifocal atrial tachycardia but towards the end of his acute hospitalization, he may have had at least a few episodes of atrial fibrillation. I placed the patient on rivaroxaban for stroke prophylaxis. He is on diltiazem for rate control. He seems to be remaining in sinus rhythm since being transferred to inpatient rehab. I will now discontinue telemetry. (2) Multifocal atrial tachycardia Status: Acute Assessment & Plan: As above, he was predominantly having multifocal atrial tachycardia. Now he is back in sinus rhythm. I recommend he continue on diltiazem. (3) Primary hypertension Status: Chronic Assessment & Plan: His blood pressure is reasonably controlled with diltiazem although intermittently elevated. If his blood pressure remains elevated, I would consider increasing the diltiazem. (4) Mixed hyperlipidemia Status: Chronic Assessment & Plan: Continue atorvastatin which he was taking at home. (5) Acute kidney injury Status: Acute Assessment & Plan: His renal function now seems to have stabilized. FRANCISCO BHAKTA DO Oct 13, 2021 09:45
[2021-10-13 10:17] LABS: BASOPHILS # (AUTO) 0.1 10^3/uL (0.0-0.1); BASOPHILS % (AUTO) 0 % (0-10); EOSINOPHILS % (AUTO) 0 % (0-10); HEMATOCRIT 31 % (40-54); HEMOGLOBIN 9.7 g/dL (13.3-17.7); LYMPHOCYTES # (AUTO) 0.6 10^3/uL (1.0-4.0); LYMPHOCYTES % (AUTO) 2 % (12-44); MEAN CORPUSCULAR HEMOGLOBIN 28 pg (25-34); MEAN CORPUSCULAR HGB CONC 31 g/dL (32-36); MEAN CORPUSCULAR VOLUME 90 fL (80-99); MEAN PLATELET VOLUME 9.9 fL (9.0-12.2); MONOCYTES # (AUTO) 1.4 10^3/uL (0.0-1.0); MONOCYTES % (AUTO) 4 % (0-12); NEUTROPHILS # (AUTO) 27.5 10^3/uL (1.8-7.8); NEUTROPHILS % (AUTO) 86 % (42-75); PLATELET COUNT 697 10^3/uL (130-400)
[2021-10-13 10:21] LABS: WHITE BLOOD COUNT 32.2 10^3/uL (4.3-11.0)
[2021-10-13 10:38] LABS: ALBUMIN 2.8 GM/DL (3.2-4.5); BILIRUBIN,TOTAL 0.5 MG/DL (0.1-1.0); CALCIUM 7.9 MG/DL (8.5-10.1); CREATININE SERUM 0.86 MG/DL (0.60-1.30); POTASSIUM 3.9 MMOL/L (3.6-5.0); TOTAL PROTEIN 5.4 GM/DL (6.4-8.2)
[2021-10-13 10:42] LABS: ANISOCYTOSIS SLIGHT; ATYPICAL LYMPHOCYTES 4 %; BAND NEUTROPHILS 2 %; LYMPHOCYTES % (MANUAL) 4 %; MONOCYTES % (MANUAL) 4 %; NEUTROPHILS % (MANUAL) 86 %; POLYCHROMASIA SLIGHT
[2021-10-13 10:43] LABS: CRENATED RBC SLIGHT
--- NOTE | 2021-10-13 10:51 | Physical Therapy Daily Note ---
PT Daily Note-Current Subjective Pt sitting in recliner upon arrival. Pt agrees to PT. Pain Location: No Pain Reported Mental Status Patient Orientation: Person, Place, Situation Attachments: Oxygen, IV Transfers SCALE: Activities may be completed with or without assistive devices. 5-Cxkiwcrrjz-jsvahzl completes the activity by him/herself with no assistance from a helper. 5-Set-up or Clean-up Assistance-helper sets up or cleans up; patient completes activity. [place] assists only prior to or following the activity. 4-Supervision or Touching Assistance-helper provides verbal cues and/or touching/steadying and/or contact guard assistance as patient completes activity. Assistance may be provided throughout the activity or intermittently. 3-Partial/Moderate Assistance-helper does LESS THAN HALF the effort. [place] lifts, holds or supports trunk or limbs, but provides less than half the effort. 2-Substantial/Maximal Assistance-helper does MORE THAN HALF the effort. [place] lifts or holds trunk or limbs and provides more than half the effort. 9-Uwsirhxve-jlbksy does ALL the effort. Patient does none of the effort to complete the activity. Or, the assistance of 2 or more helpers is required for the patient to complete the activity. If activity was not attempted, code reason: 7-Patient Refused. 9-Not Applicable-not attempted and the patient did not perform the activity before the current illness, exacerbation or injury. 10-Not Attempted due to Environmental Limitations-(lack of equipment, weather restraints, etc.). 88-Not Attempted due to Medical Conditions or Safety Concerns. Weight Bearing Right Lower Extremity: Right Weight Bearing/Tolerated Left Lower Extremity: Left Weight Bearing/Tolerated Exercises Supine Ex: Ankle pumps, Quad Set, Glut sets, Heel Slides, Short Arc Quads, Straight leg raise, Hip abd/add Supine Reps: 10 Seated Therapy Exercises: Ankle pumps, Long arc quads, Hip flexion, Glut set Seated Reps: 10 Treatments Pt issued and SHIPPING HAND reviews written HEP for Supine & Seated Ex. Pt takes RB as needed. Pt resting in recliner at end of tx. All needs met, call light in hand. Assessment Current Status: Fair Progress SOA at times so needs RB. PT Short Term Goals Short Term Goals Time Frame: Oct 17, 2021 Roll Left & Right: 6 Sit to lyin Lying to sitting on side of be: 4 Sit to stand: 4 (SBA) Chair/utw-oi-pgdgo transfer: 4 (SBA) Walk 10 feet: 4 Walk 50 feet with two turns: 4 Walk 150 feet: 4 PT Group Home Goals Pinion Staker Goals PT Group Home Goals Time Frame: Oct 31, 2021 Roll Left & Right (QC): 6 Sit to Lying (QC): 6 Lying-Sitting on Side/Bed(QC): 6 Sit to Stand (QC): 6 Chair/Ost-fl-Nfuvs Xfer(QC): 6 Toilet Transfer (QC): 6 Car Transfer (QC): 3 Does the Patient Walk: Yes Walk 10 feet (QC): 6 Walk 50ft with 2 Turns (QC): 6 Walk 150 ft (QC): 6 Walking 10ft on Uneven Surface: 4 1 Step (curb) (QC): 4 4 Steps (QC): 4 12 Steps (QC): 88 Picking up an Object (QC): 4 Wheel 50 feet with 2 turns (QC: 9 Wheel 150 feet: 9 PT Plan Problem List Problem List: Activity Tolerance, Functional Strength Treatment/Plan Treatment Plan: Continue Plan of Care Treatment Plan: Bed Mobility, Education, Functional Activity Tatiana, Functional Strength, Group Therapy, Gait, Safety, Therapeutic Exercise, Transfers Treatment Duration: Oct 31, 2021 Frequency: At least 5 of 7 days/Wk (IRF) Estimated Hrs Per Day: 1.5 hours per day Patient and/or Family Agrees t: Yes Safety Risks/Education Patient Education: Issued Written HEP, Correct Positioning Teaching Recipient: Patient Teaching Methods: Discussion Response to Teaching: Verbalize Understanding Time/GCodes Time In: 815 Time Out: 840 Total Billed Treatment Time: 25 Total Billed Treatment 1, EX x2 (25m) ANDREA MILLIGAN SHIPPING HAND Oct 13, 2021 10:51
[2021-10-13 11:16] VITALS: BP 147/65
[2021-10-13] MEDS ORDERED: RT-ALBUTEROL/IPRATROPIUM 3 ML (DUONEB) VIAL INH PRN (11:30)
[2021-10-13] MEDS ORDERED: FUROSEMIDE 40 MG/4 ML INJ (LASIX) IVP ONE (14:00)
[2021-10-13] MEDS: TAMSULOSIN 0.4 MG (FLOMAX) CAP PO SCH ×2 (14:25→20:47)
[2021-10-13] MEDS ORDERED: LIDOCAINE UROJET 2% GEL 10 ML PKG ONE ×3 (14:41→19:25)
[2021-10-13] MEDS: RIVAROXABAN 20 MG TABLET (XARELTO) PO SCH (17:28)
[2021-10-13] MEDS: LORATADINE (CLARITIN) 10 MG TAB PO ONE ×2 (18:37→19:04)
[2021-10-13] MEDS ORDERED: LORATADINE (CLARITIN) 10 MG TAB ONE (18:43)
[2021-10-13 20:00] VITALS: BP 137/72
[2021-10-13] MEDS: MONTELUKAST 10 MG (SINGULAIR) TAB PO SCH (20:47)
[2021-10-13] MEDS: CATHETER FLUSH 10 ML SYR IV SCH (20:51)
[2021-10-13] MEDS: RT-BUDESONIDE NEBS 0.5 MG/2ML (PULMICORT) AMP INH SCH (21:38)
[2021-10-14] MEDS: CEFEPIME INJECTION 1,000 MG in NS (IVPB) 50 ML IV SCH ×4 (00:09→18:39)
[2021-10-14] MEDS: CATHETER FLUSH 10 ML SYR IV SCH ×3 (06:51→21:28)
[2021-10-14] MEDS: inSUlin ASPART (NovoLOG) 1 UNIT/0.01 ML (CHARGE PER UNIT) SC SCH ×4 (06:51→21:00)
[2021-10-14] MEDS: RT-ALBUTEROL/IPRATROPIUM 3 ML (DUONEB) VIAL INH SCH ×4 (07:30→19:16)
[2021-10-14] MEDS: RT-BUDESONIDE NEBS 0.5 MG/2ML (PULMICORT) AMP INH SCH ×2 (07:30→19:16)
[2021-10-14 07:36] LABS: BASOPHILS # (AUTO) 0.1 10^3/uL (0.0-0.1); BASOPHILS % (AUTO) 0 % (0-10); EOSINOPHILS % (AUTO) 0 % (0-10); HEMATOCRIT 30 % (40-54); HEMOGLOBIN 9.3 g/dL (13.3-17.7); LYMPHOCYTES # (AUTO) 0.7 10^3/uL (1.0-4.0); LYMPHOCYTES % (AUTO) 2 % (12-44); MEAN CORPUSCULAR HEMOGLOBIN 28 pg (25-34); MEAN CORPUSCULAR HGB CONC 31 g/dL (32-36); MEAN CORPUSCULAR VOLUME 89 fL (80-99); MEAN PLATELET VOLUME 9.9 fL (9.0-12.2); MONOCYTES # (AUTO) 1.5 10^3/uL (0.0-1.0); MONOCYTES % (AUTO) 4 % (0-12); NEUTROPHILS # (AUTO) 28.6 10^3/uL (1.8-7.8); NEUTROPHILS % (AUTO) 86 % (42-75); PLATELET COUNT 692 10^3/uL (130-400)
[2021-10-14 07:39] LABS: WHITE BLOOD COUNT 33.2 10^3/uL (4.3-11.0)
[2021-10-14 07:55] LABS: ALBUMIN 2.8 GM/DL (3.2-4.5); BILIRUBIN,TOTAL 0.5 MG/DL (0.1-1.0); CALCIUM 7.9 MG/DL (8.5-10.1); CREATININE SERUM 0.92 MG/DL (0.60-1.30); POTASSIUM 3.7 MMOL/L (3.6-5.0); TOTAL PROTEIN 5.3 GM/DL (6.4-8.2)
--- NOTE | 2021-10-14 08:38 | PM&R Progress Note ---
Subjective HPI/CC On Admission Date Seen by Provider: Oct 14, 2021 Time Seen by Provider: 14:00 Subjective/Events-last exam 10/14/2021: Patient feels better Elevated white count he is suspicious Dark stool was Hemoccult and it is positive Consulted Dr. MARROQUIN and ordered proton pump inhibitor twice daily and Carafate and holding Xarelto C. difficile will be ordered due to significantly elevated white blood cell co unt but no fever or any other findings of infectious source Check meds labs Very complex issues 10/13/2021: Patient doing better Oxygen down to 3 L Gave Lasix 20 mg IV after I conferred with Dr. Colon Edema noted Labs revealed white count elevated due to steroid effect Antibiotics still on board LIZZETTE gonzalez maintained Had BM yesterday Wheezing noted but no coarseness Urinary retention management 10/12/21: Pt dramatically improved Dr. Ford is monitoring Accapella is being used 4L of of O2 now Voiding well since Catheter removed Took a shower today he feels much better 10/11/21: Pt doing a lot better today Bowels are moving Catheter was discontinued Blood pressure is doing okay White count 20,000 from steroid Hemoglobin is 9.3 Remains on 4-6L of O2 and does increase with exertion Overall, much improved Review of Systems General: Fatigue, Malaise Pulmonary: Dyspnea, Cough Objective Exam Vital Signs Vital Signs Date Time Temp Pulse Resp B/P (MAP) Pulse Ox O2 Delivery O2 Flow Rate FiO2 10/14/21 21:00 High Flow N/C 4.00 10/14/21 20:24 36.2 94 20 145/64 (91) 91 10/13/21 11:16 32 Capillary Refill : General Appearance: WD/WN, Anxious, Chronically ill, Mild Distress HEENT: PERRL/EOMI, Normal ENT Inspection, Pharynx Normal Neck: Full Range of Motion, Normal Inspection, Non Tender, Supple, Carotid Bruit Respiratory: Chest Non Tender, No Respiratory Distress, Accessory Muscle Use, Decreased Breath Sounds, Rales, Wheezing Cardiovascular: Regular Rate, Rhythm, No Edema, No Gallop, No JVD, No Murmur, Normal Peripheral Pulses Gastrointestinal: Normal Bowel Sounds, No Organomegaly, No Pulsatile Mass, Non Tender, Soft Back: Normal Inspection, No CVA Tenderness, No Vertebral Tenderness Extremity: Normal Capillary Refill, Normal Inspection, Normal Range of Motion, Non Tender, No Calf Tenderness, No Pedal Edema Neurologic/Psychiatric: Alert, Oriented x3, No Motor/Sensory Deficits, Normal Mood/Affect Skin: Normal Color, Warm/Dry Lymphatic: No Adenopathy Results/Procedures Lab Laboratory Tests 10/14/21 07:26 Patient resulted labs reviewed. FIM Transfers Therapy Code Descriptions/Definitions Functional [place] Measure: 0=Not Assessed/NA 4=Minimal Assistance 1=Total Assistance 5=Supervision or Setup 2=Maximal Assistance 6=Modified [place] 3=Moderate Assistance 7=Complete IndependenceSCALE: Activities may be completed with or without assistive devices. 0-Nppiypwzsl-twaosow completes the activity by him/herself with no assistance from a helper. 5-Set-up or Clean-up Assistance-helper sets up or cleans up; patient completes activity. [place] assists only prior to or following the activity. 4-Supervision or Touching Assistance-helper provides verbal cues and/or touching/steadying and/or contact guard assistance as patient completes activity. Assistance may be provided throughout the activity or intermittently. 3-Partial/Moderate Assistance-helper does LESS THAN HALF the effort. [place] lifts, holds or supports trunk or limbs, but provides less than half the effort. 2-Substantial/Maximal Assistance-helper does MORE THAN HALF the effort. [place] lifts or holds trunk or limbs and provides more than half the effort. 3-Kwecfbsef-jtvoom does ALL the effort. Patient does none of the effort to complete the activity. Or, the assistance of 2 or more helpers is required for the patient to complete the activity. If activity was not attempted, code reason: 7-Patient Refused. 9-Not Applicable-not attempted and the patient did not perform the activity before the current illness, exacerbation or injury. 10-Not Attempted due to Environmental Limitations-(lack of equipment, weather restraints, etc.). 88-Not Attempted due to Medical Conditions or Safety Concerns. Roll Left to Right (QC): 6 Sit to Lying (QC): 4 Sit to Stand (QC): 5 Chair/Mwm-as-Dmpzw Xfer(QC): 5 Car Transfer (QC): 3 Gait Training Does the Patient Walk?: Yes Walk 10 feet (QC): 5 Walk 50 ft with 2 Turns(QC): 4 Walk 150 ft (QC): 88 Walking 10ft/uneven surface-QC: 88 Gait Persons Needed: 1 Gait Assistive Device: FWW Wheelchair Training Does the Pt Use a Wheelchair?: Yes Wheel 50 ft with 2 turns (QC): 1 Wheel 150 ft (QC): 1 Type of Wheelchair: Manual Stair Training 1 Step (curb) (QC): 88 4 Steps (QC): 88 12 Steps (QC): 88 Balance Picking up an Object (QC): 88 ADL-Treatment Eating (QC): 6 (Independent with set up and uses regular utensils to eat.) Oral Hygiene (QC): 6 Shower/Bathe Self (QC): 3 Upper Body Dressing (QC): 5 Lower Body Dressing (QC): 5 On/Off Footwear (QC): 3 Toileting Hygiene (QC): 3 (mod A) Toilet Transfer (QC): 4 Assessment/Plan Assessment and Plan Assess & Plan/Chief Complaint Assessment: Debility New onset AF w/recent RVR Active wheezing AECOPD Hypoxia PNA s/p septic shock CHAZ HTN Hypoxemia Urinary retention 10/13/21 Volume overload giving Lasix 20mg IV x 1 Dark stool Hemoccult + 10/14/[address] MARROQUIN and change PPI to twice daily and added Carafate and holding Xarelto Severely elevated white count without source checking C. difficile Plan: Monitor closely IV steroids IV abx DC cath tomorrow Supportive care 10/11/21: Monitor closely Cath DC 10/12/21: Doing extremely well Monitor closely 10/13/21: Lasix 20mgIV x [address] Colon Urinary retention management 10/14/2021: Check C. difficile Hold Xarelto PPI and Carafate (1) Paroxysmal atrial fibrillation Status: Acute Assessment & Plan: He initially was having sinus tachycardia and multifocal atrial tachycardia but towards the end of his acute hospitalization, he may have had at least a few episodes of atrial fibrillation. I placed the patient on rivaroxaban for stroke prophylaxis. He is on diltiazem for rate control. He seems to be remaining in sinus rhythm since being transferred to inpatient rehab. I will now discontinue telemetry. (2) Multifocal atrial tachycardia Status: Acute Assessment & Plan: As above, he was predominantly having multifocal atrial tachycardia. Now he is back in sinus rhythm. I recommend he continue on diltiazem. (3) Primary hypertension Status: Chronic Assessment & Plan: His blood pressure is reasonably controlled with diltiazem although intermittently elevated. If his blood pressure remains elevated, I would consider increasing the diltiazem. (4) Mixed hyperlipidemia Status: Chronic Assessment & Plan: Continue atorvastatin which he was taking at home. (5) Acute kidney injury Status: Acute Assessment & Plan: His renal function now seems to have stabilized. FRANCISCO BHAKTA DO Oct 14, 2021 08:38
[2021-10-14 08:49] VITALS: BP 124/56
[2021-10-14] MEDS: PANTOPRAZOLE 40 MG (PROTONIX) TAB PO SCH (08:58)
[2021-10-14] MEDS: methylPREDNISolone 40 MG/ML (Solu-MEDROL) VIAL IV SCH ×2 (08:58→21:27)
[2021-10-14] MEDS: TAMSULOSIN 0.4 MG (FLOMAX) CAP PO SCH ×2 (08:58→21:27)
[2021-10-14] MEDS: DOCUSATE SODIUM 100 MG (COLACE) CAP PO SCH ×2 (08:59→21:27)
[2021-10-14] MEDS: LORATADINE (CLARITIN) 10 MG TAB PO SCH (08:59)
[2021-10-14] MEDS: SENNA W/DOCUSATE (SENOKOT S) TABLET PO SCH ×2 (08:59→21:27)
--- NOTE | 2021-10-14 09:30 | Diagnostic Imaging Report ---
Portable erect AP chest at 9:15 INDICATION: Pneumonia The heart is stable in size when compared to the prior exam of 10/10/2021. The previous study did show alveolar/interstitial pulmonary infiltrates throughout the right lung with some involvement of the left lung base. On this study the right upper lobe does seem much better aerated. However there continues to be involvement of the right mid lung and right lung base by pneumonia/atelectasis and there seems to have been a slight increase in the amount of fluid in the right lung base as well. In addition there is also greater involvement of the left lung base by atelectasis/infiltrate and fluid. The left upper lung remains relatively clear. The mediastinum is not widened. The osseous structures are intact. The left-sided central venous catheter seen previously is unchanged in position. IMPRESSION: There are mixed results. The right upper lung does seem much better aerated but there is greater involvement of the left lung base by atelectasis/infiltrate and fluid. The amount of fluid in the right lung base also appears to have increased since the prior exam. Dictated by: Dictated on workstation # [id number]
--- NOTE | 2021-10-14 11:35 | Cardiology Progress Note ---
Subjective Date Seen by Provider: Oct 14, 2021 Time Seen by Provider: 11:32 Subjective/Events-last exam Patient was seen at bedside, sitting comfortably Had some difficulty voiding yesterday, feeling better today. Review of Systems General: No Chills, No Night Sweats; Fatigue; No Malaise, No Appetite, No Other HEENT: No Head Aches, No Visual Changes, No Eye Pain, No Ear Pain, No Dysphasia, No Sinus Congestion, No Post Nasal Drip, No Sore Throat, No Other Pulmonary: No Dyspnea, No Cough, No Pleuritic Chest Pain, No Other Cardiovascular: Edema; No: Chest Pain, Palpitations, Orthopnea, Paroxysmal Noc. Dyspnea, Lt Headedness, Other Objective-Cardiology Exam Last Set of Vital Signs Vital Signs 10/13/21 10/14/21 10/14/21 11:16 08:49 10:56 Temp 36.8 Pulse 101 Resp 20 B/P (MAP) 124/56 (78) Pulse Ox 93 O2 Delivery Nasal Cannula O2 Flow Rate 3.00 FiO2 32 I&O Intake and Output 10/14/21 00:00 Intake Total 1225 ml Output Total 1717 ml Balance -492 ml Intake Oral 1175 ml IV Total 50 ml Output Urine Total 750 ml Post Void Residual 967 ml Bladder Scan Volume Amount 537 ml # Voids 5 General: Alert, Oriented X3 HEENT: Atraumatic, PERRLA Neck: Supple, No JVD, No Thyromegaly Lungs: Clear to Auscultation, Normal Air Movement Heart: Regular Rate, Normal S1, Normal S2, No Murmurs Abdomen: Normal Bowel Sounds, Soft, No Tenderness, No Hepatosplenomegaly, No Masses Extremities: No Clubbing, No Cyanosis, No Edema, Normal Pulses, No Tenderness/Swelling Skin: No Rashes, No Breakdown, No Significant Lesion Neuro: Normal Gait, Normal Speech, Strength at 5/5 X4 Ext, Normal Tone, Sensation Intact Psych/Mental Status: Mental Status NL, Mood NL Results Lab Laboratory Tests 10/14/21 07:26 A/P-Cardiology Admission Diagnosis Paroxysmal atrial fibrillation Peripheral edema Leukocytosis Hypertension Assessment/Plan Paroxysmal atrial fibrillation, currently in sinus rhythm with frequent atrial premature contractions, doing well. Tolerating current medication well Leukocytosis, worsening recently. Chest x-ray showed pulmonary infiltrate. Ma naged by medical team Peripheral edema, worsening recently, started on diuretic, responding well. Continue to monitor Dysuria, improving. Continue to monitor Hypertension, monitor blood pressure Acute kidney injury, continue to monitor renal function Hyperlipidemia, continue on atorvastatin monitor lipids LITA SEXTON MD Oct 14, 2021 11:35
[2021-10-14] MEDS: polyethylene glycoL POWDER 17 GM (MIRALAX) PACK PO SCH ×2 (11:56→21:00)
[2021-10-14] MEDS: SENNOSIDES 8.6 MG (SENOKOT) TAB PO SCH ×2 (11:56→21:00)
[2021-10-14 14:25] VITALS: BP 128/60
[2021-10-14] MEDS: RIVAROXABAN 20 MG TABLET (XARELTO) PO SCH (17:35)
[2021-10-14] MEDS ORDERED: PANTOPRAZOLE 40 MG (PROTONIX) TAB PO ONE (19:15)
[2021-10-14 20:24] VITALS: BP 145/64
[2021-10-14] MEDS: LACTOBACILLUS Acidoph/Bulgar 1 GM (LACTINEX) PACKET PO SCH (21:27)
[2021-10-14] MEDS: MONTELUKAST 10 MG (SINGULAIR) TAB PO SCH (21:27)
[2021-10-14] MEDS: SUCRALFATE 1 GM (CARAFATE) TAB PO SCH (21:27)
--- NOTE | 2021-10-14 21:58 | CONSULTATION REPORT ---
DATE OF SERVICE: 10/14/2021 ATTENDING PRIMARY CARE PHYSICIAN: Dr. Molly Flores. ADMITTING PHYSICIAN: Dr. Chase. HISTORY OF PRESENT ILLNESS: The patient is an 81-year-old male who was transferred from [facility] to [facility] due to septic shock from pneumonia. He has a past medical history of hypertension, hypercholesterolemia as well as hypothyroid. He was also found to have new-onset atrial fibrillation as well as rapid ventricular response. He is on anticoagulation with Xarelto and did develop red blood per rectum today. His hemoglobin is currently stable. He does not recall having a previous red blood per rectum nor any dark tarry stools. He does have a history of gastroesophageal reflux disease. PAST MEDICAL HISTORY: Pneumonia, atrial fibrillation, hypercholesterolemia, hypertension, hypothyroid. PAST SURGICAL HISTORY: None known. ALLERGIES: PENICILLIN. MEDICATIONS: Aspirin 81 mg daily, atorvastatin 40 mg daily, diltiazem 180 mg daily, famotidine 20 mg daily, levothyroxine 112 mcg daily, prednisone 10 mg daily, Xarelto b.i.d. SOCIAL HISTORY: Previous smoke, negative alcohol. FAMILY HISTORY: Noncontributory. VITAL SIGNS: Temperature 36.8, blood pressure 126/60, pulse 100, respirations 20, pulse ox 94% on 3 liters nasal cannula. REVIEW OF SYSTEMS: This is a well-nourished male, currently in no acute distress. He is not experiencing any shortness of breath, no difficulty breathing. No chest pain, palpitations, diaphoresis. He does have some cough as well as mild sputum production. No hemoptysis. History of gastroesophageal reflux disease. No nausea, vomiting. He did develop red blood per rectum after having a bowel movement today, which was self-limited and stopped on its own. No fever, chills, no recent inadvertent weight loss. All other review of systems negative. PHYSICAL EXAMINATION: CHEST: Few scattered rales and rhonchi bilaterally. HEART: Regular, no murmurs. EXTREMITIES: No lower extremity edema, negative Homans sign. HEENT: No scleral icterus. NECK: No cervical lymphadenopathy. ABDOMEN: Soft, nontender, nondistended. No hernias, no peritoneal signs. SKIN: Warm, dry. LABORATORY DATA: WBC 33.2, hemoglobin 9.3, hematocrit 30, platelets 692. BUN 31, creatinine 0.92. Liver function enzymes normal. ASSESSMENT AND PLAN: An 81-year-old male with rectal bleeding. He was admitted for pneumonia and is still being treated for this and also developed new-onset atrial fibrillation as well as rapid ventricular response and was placed on anticoagulation with Xarelto. Since that time, he did develop self-limited rectal bleeding. He is unsure when his last colonoscopy was. He also does report a history of gastroesophageal reflux disease. Once more stable from a respiratory standpoint, we will proceed with endoscopy with EGD and colonoscopy. Job ID: [id number] DocumentID: [id number] Dictated Date: 10/14/2021 19:55:04 Section Chief Date: 10/14/2021 20:47:53 Dictated By: EDVIN MARROQUIN MD
[2021-10-15] MEDS: CEFEPIME INJECTION 1,000 MG in NS (IVPB) 50 ML IV SCH ×2 (00:34→06:23)
[2021-10-15] MEDS: LACTOBACILLUS Acidoph/Bulgar 1 GM (LACTINEX) PACKET PO SCH ×4 (06:23→20:39)
[2021-10-15] MEDS: CATHETER FLUSH 10 ML SYR IV SCH ×3 (06:23→20:44)
[2021-10-15] MEDS: SUCRALFATE 1 GM (CARAFATE) TAB PO SCH ×4 (06:23→20:40)
[2021-10-15 06:25] LABS: BASOPHILS # (AUTO) 0.1 10^3/uL (0.0-0.1); BASOPHILS % (AUTO) 0 % (0-10); EOSINOPHILS % (AUTO) 0 % (0-10); HEMATOCRIT 26 % (40-54); HEMOGLOBIN 8.1 g/dL (13.3-17.7); LYMPHOCYTES # (AUTO) 0.6 10^3/uL (1.0-4.0); LYMPHOCYTES % (AUTO) 2 % (12-44); MEAN CORPUSCULAR HEMOGLOBIN 28 pg (25-34); MEAN CORPUSCULAR HGB CONC 31 g/dL (32-36); MEAN CORPUSCULAR VOLUME 88 fL (80-99); MEAN PLATELET VOLUME 9.7 fL (9.0-12.2); MONOCYTES # (AUTO) 0.9 10^3/uL (0.0-1.0); MONOCYTES % (AUTO) 3 % (0-12); NEUTROPHILS % (AUTO) 90 % (42-75); PLATELET COUNT 594 10^3/uL (130-400)
[2021-10-15 06:29] LABS: WHITE BLOOD COUNT 30.2 10^3/uL (4.3-11.0)
[2021-10-15] MEDS: inSUlin ASPART (NovoLOG) 1 UNIT/0.01 ML (CHARGE PER UNIT) SC SCH ×4 (06:35→20:39)
[2021-10-15 06:41] LABS: ALBUMIN 2.6 GM/DL (3.2-4.5)
[2021-10-15 06:42] LABS: POTASSIUM 4.4 MMOL/L (3.6-5.0)
[2021-10-15 06:43] LABS: CALCIUM 7.6 MG/DL (8.5-10.1)
[2021-10-15 06:44] LABS: TOTAL PROTEIN 4.9 GM/DL (6.4-8.2)
[2021-10-15 06:46] LABS: BILIRUBIN,TOTAL 0.4 MG/DL (0.1-1.0)
[2021-10-15 06:48] LABS: CREATININE SERUM 0.81 MG/DL (0.60-1.30)
[2021-10-15] MEDS: RT-ALBUTEROL/IPRATROPIUM 3 ML (DUONEB) VIAL INH SCH ×3 (07:29→21:01)
[2021-10-15] MEDS: RT-BUDESONIDE NEBS 0.5 MG/2ML (PULMICORT) AMP INH SCH ×2 (07:30→21:02)
[2021-10-15 07:59] VITALS: BP 126/72
--- NOTE | 2021-10-15 08:37 | PM&R Progress Note ---
Subjective HPI/CC On Admission Date Seen by Provider: Oct 15, 2021 Time Seen by Provider: 09:00 Subjective/Events-last exam 10/15/21: Pt is doing about the same Pt had a formed BM Can't do c.diff on formed bowels Dr. Ford to see for volume overload White count down to 30,000 Holding anticoagulation due to hemoccult positive stools and anemia Hemoglobin 8.1 10/14/2021: Patient feels better Elevated white count he is suspicious Dark stool was Hemoccult and it is positive Consulted Dr. MARROQUIN and ordered proton pump inhibitor twice daily and Carafate and holding Xarelto C. difficile will be ordered due to significantly elevated white blood cell count but no fever or any other findings of infectious source Check meds labs Very complex issues 10/13/2021: Patient doing better Oxygen down to 3 L Gave Lasix 20 mg IV after I conferred with Dr. Colon Edema noted Labs revealed white count elevated due to steroid effect Antibiotics still on board LIZZETTE marcye maintained Had BM yesterday Wheezing noted but no coarseness Urinary retention management 10/12/21: Pt dramatically improved Dr. Ford is monitoring Accapella is being used 4L of of O2 now Voiding well since Catheter removed Took a shower today he feels much better 10/11/21: Pt doing a lot better today Bowels are moving Catheter was discontinued Blood pressure is doing okay White count 20,000 from steroid Hemoglobin is 9.3 Remains on 4-6L of O2 and does increase with exertion Overall, much improved Review of Systems General: Fatigue, Malaise Pulmonary: Dyspnea Objective Exam Vital Signs Vital Signs Date Time Temp Pulse Resp B/P (MAP) Pulse Ox O2 Delivery O2 Flow Rate FiO2 10/15/21 21:02 89 Nasal Cannula 3.00 10/15/21 21:01 36.5 93 20 127/66 (86) 10/13/21 11:16 32 Capillary Refill : General Appearance: WD/WN, Anxious, Chronically ill, Mild Distress HEENT: PERRL/EOMI, Normal ENT Inspection, Pharynx Normal Neck: Full Range of Motion, Normal Inspection, Non Tender, Supple, Carotid Bruit Respiratory: Chest Non Tender, No Respiratory Distress, Accessory Muscle Use, Decreased Breath Sounds, Rales, Wheezing Cardiovascular: Regular Rate, Rhythm, No Edema, No Gallop, No JVD, No Murmur, Normal Peripheral Pulses Gastrointestinal: Normal Bowel Sounds, No Organomegaly, No Pulsatile Mass, Non Tender, Soft Back: Normal Inspection, No CVA Tenderness, No Vertebral Tenderness Extremity: Normal Capillary Refill, Normal Inspection, Normal Range of Motion, Non Tender, No Calf Tenderness, No Pedal Edema Neurologic/Psychiatric: Alert, Oriented x3, No Motor/Sensory Deficits, Normal Mood/Affect Skin: Normal Color, Warm/Dry Lymphatic: No Adenopathy Results/Procedures Lab Laboratory Tests 10/15/21 06:10 Patient resulted labs reviewed. FIM Transfers Therapy Code Descriptions/Definitions Functional [place] Measure: 0=Not Assessed/NA 4=Minimal Assistance 1=Total Assistance 5=Supervision or Setup 2=Maximal Assistance 6=Modified [place] 3=Moderate Assistance 7=Complete IndependenceSCALE: Activities may be completed with or without assistive devices. 7-Tkmeilyxlf-ciwcykx completes the activity by him/herself with no assistance from a helper. 5-Set-up or Clean-up Assistance-helper sets up or cleans up; patient completes activity. [place] assists only prior to or following the activity. 4-Supervision or Touching Assistance-helper provides verbal cues and/or touching/steadying and/or contact guard assistance as patient completes activity. Assistance may be provided throughout the activity or intermittently. 3-Partial/Moderate Assistance-helper does LESS THAN HALF the effort. [place] lifts, holds or supports trunk or limbs, but provides less than half the effort. 2-Substantial/Maximal Assistance-helper does MORE THAN HALF the effort. [place] lifts or holds trunk or limbs and provides more than half the effort. 1-Czpoonlir-beyblu does ALL the effort. Patient does none of the effort to complete the activity. Or, the assistance of 2 or more helpers is required for the patient to complete the activity. If activity was not attempted, code reason: 7-Patient Refused. 9-Not Applicable-not attempted and the patient did not perform the activity before the current illness, exacerbation or injury. 10-Not Attempted due to Environmental Limitations-(lack of equipment, weather restraints, etc.). 88-Not Attempted due to Medical Conditions or Safety Concerns. Roll Left to Right (QC): 6 Sit to Lying (QC): 4 Sit to Stand (QC): 5 Chair/Mng-im-Phpdf Xfer(QC): 5 Car Transfer (QC): 3 Gait Training Does the Patient Walk?: Yes Walk 10 feet (QC): 5 Walk 50 ft with 2 Turns(QC): 4 Walk 150 ft (QC): 88 Walking 10ft/uneven surface-QC: 88 Gait Persons Needed: 1 Gait Assistive Device: FWW Wheelchair Training Does the Pt Use a Wheelchair?: Yes Wheel 50 ft with 2 turns (QC): 1 Wheel 150 ft (QC): 1 Type of Wheelchair: Manual Stair Training 1 Step (curb) (QC): 88 4 Steps (QC): 88 12 Steps (QC): 88 Balance Picking up an Object (QC): 88 ADL-Treatment Eating (QC): 6 (Independent with set up and uses regular utensils to eat.) Oral Hygiene (QC): 6 Shower/Bathe Self (QC): 3 Upper Body Dressing (QC): 5 Lower Body Dressing (QC): 5 On/Off Footwear (QC): 3 Toileting Hygiene (QC): 3 (mod A) Toilet Transfer (QC): 4 Assessment/Plan Assessment and Plan Assess & Plan/Chief Complaint Assessment: Debility New onset AF w/recent RVR Active wheezing AECOPD Hypoxia PNA s/p septic shock CHAZ HTN Hypoxemia Urinary retention 10/13/21 Volume overload giving Lasix per Dr Ford Dark stool Hemoccult + 10/14/[address] MARROQUIN and change PPI to twice daily and added Carafate and holding Xarelto Severely elevated white count without source checking C. difficile Plan: Monitor closely IV steroids IV abx DC cath tomorrow Supportive care 10/11/21: Monitor closely Cath DC 10/12/21: Doing extremely well Monitor closely 10/13/21: Lasix 20mgIV x [address] Colon Urinary retention management 10/14/2021: Check C. difficile Hold Xarelto PPI and Carafate 10/15/21: Appreciate Dr Ford Consult Dr Izaguirre (1) Paroxysmal atrial fibrillation Status: Acute Assessment & Plan: He initially was having sinus tachycardia and multifocal atrial tachycardia but towards the end of his acute hospitalization, he may have had at least a few episodes of atrial fibrillation. I placed the patient on rivaroxaban for stroke prophylaxis. He is on diltiazem for rate control. He seems to be remaining in sinus rhythm since being transferred to inpatient rehab. I will now discontinue telemetry. (2) Multifocal atrial tachycardia Status: Acute Assessment & Plan: As above, he was predominantly having multifocal atrial tachycardia. Now he is back in sinus rhythm. I recommend he continue on diltiazem. (3) Primary hypertension Status: Chronic Assessment & Plan: His blood pressure is reasonably controlled with diltiazem although intermittently elevated. If his blood pressure remains elevated, I wou ld consider increasing the diltiazem. (4) Mixed hyperlipidemia Status: Chronic Assessment & Plan: Continue atorvastatin which he was taking at home. (5) Acute kidney injury Status: Acute Assessment & Plan: His renal function now seems to have stabilized. FRANCISCO BHAKTA DO Oct 15, 2021 08:37
--- NOTE | 2021-10-15 08:56 | Physical Therapy Daily Note ---
PT Daily Note-Current Subjective Pt. agrees to Rx. States he is so worried about having to be straight cathed during the night. mentions this multiple times during tx. Pt requests to use bthrm to try to urinate . Pt does c/o SOB during short bouts of gait and activity. O2 sats are very difficult to obtain. Pain Location: No Pain Reported Mental Status Patient Orientation: Normal For Age Attachments: Oxygen (3L) Transfers SCALE: Activities may be completed with or without assistive devices. 8-Fbsofwujdx-xiexnlb completes the activity by him/herself with no assistance from a helper. 5-Set-up or Clean-up Assistance-helper sets up or cleans up; patient completes activity. [place] assists only prior to or following the activity. 4-Supervision or Touching Assistance-helper provides verbal cues and/or touching/steadying and/or contact guard assistance as patient completes activity. Assistance may be provided throughout the activity or intermittently. 3-Partial/Moderate Assistance-helper does LESS THAN HALF the effort. [place] lifts, holds or supports trunk or limbs, but provides less than half the effort. 2-Substantial/Maximal Assistance-helper does MORE THAN HALF the effort. [place] lifts or holds trunk or limbs and provides more than half the effort. 6-Ygjjsrczk-akuvxu does ALL the effort. Patient does none of the effort to complete the activity. Or, the assistance of 2 or more helpers is required for the patient to complete the activity. If activity was not attempted, code reason: 7-Patient Refused. 9-Not Applicable-not attempted and the patient did not perform the activity before the current illness, exacerbation or injury. 10-Not Attempted due to Environmental Limitations-(lack of equipment, weather restraints, etc.). 88-Not Attempted due to Medical Conditions or Safety Concerns. Sit to Stand (QC): 6 Chair/Wet-oa-Ozfvd Xfer(QC): 5 Toilet Transfer (QC): 6 when approaching a chair or toilet or bed with FWW pt. has difficulty negotiating how to approach and begins the turn long before needed, instruction and demo was given for safe affective chair approach etc. Weight Bearing Right Lower Extremity: Right Weight Bearing/Tolerated Left Lower Extremity: Left Weight Bearing/Tolerated Gait Training Does the Patient Walk?: Yes Walk 10 feet (QC): 5 Gait Persons Needed: 1 Gait Assistive Device: FWW gait training 20 to 25 ft x 6 trials with pt. resting after leg of gait for O2 sat reading s etc. O2 difficult to obtain as it doesnt register, warm blanket wrapped around hand to facilitate this. Pt notably dyspneic with sats recording a couple times at 84% and 85% with HR of 76 to 112 bpm. Pt. required 2 -3 mins for recovery and was educated in pursed lip breathing and inhale through nose, very very difficult for pt. to coordinate this Exercises Seated Therapy Exercises: Ankle pumps, Sit to stand (10), Long arc quads, Hip flexion, Hip abd/add Seated Reps: 15 Treatments gait , seated ex, TRF and chair approaches with turns. toileted with some urination, Assessment Current Status: Good Progress pt. desats with activity, notable dyspnea, good strength and coordination for gait and TRFs but very poor tolerance for walking very far PT Short Term Goals Short Term Goals Time Frame: Oct 17, 2021 Roll Left & Right: 6 Sit to lyin Lying to sitting on side of be: 4 Sit to stand: 4 (SBA) Chair/dyp-nx-euxgw transfer: 4 (SBA) Walk 10 feet: 4 Walk 50 feet with two turns: 4 Walk 150 feet: 4 PT Chcf Goals Chcf Goals PT Brush Sander Goals Time Frame: Oct 31, 2021 Roll Left & Right (QC): 6 Sit to Lying (QC): 6 Lying-Sitting on Side/Bed(QC): 6 Sit to Stand (QC): 6 Chair/Ovn-ar-Mrdfb Xfer(QC): 6 Toilet Transfer (QC): 6 Car Transfer (QC): 3 Does the Patient Walk: Yes Walk 10 feet (QC): 6 Walk 50ft with 2 Turns (QC): 6 Walk 150 ft (QC): 6 Walking 10ft on Uneven Surface: 4 1 Step (curb) (QC): 4 4 Steps (QC): 4 12 Steps (QC): 88 Picking up an Object (QC): 4 Wheel 50 feet with 2 turns (QC: 9 Wheel 150 feet: 9 PT Plan Treatment/Plan Treatment Plan: Continue Plan of Care Treatment Plan: Bed Mobility, Education, Functional Activity Tatiana, Functional Strength, Group Therapy, Gait, Safety, Therapeutic Exercise, Transfers Treatment Duration: Oct 31, 2021 Frequency: At least 5 of 7 days/Wk (IRF) Estimated Hrs Per Day: 1.5 hours per day Patient and/or Family Agrees t: Yes Safety Risks/Education Patient Education: Gait Training, Transfer Techniques, Reviewed Precautions, Correct Positioning, Disease Process, Safety Issues Teaching Recipient: Patient Teaching Methods: Demonstration, Discussion Response to Teaching: Verbalize Understanding, Return Demonstration, Reinforcement Needed Time/GCodes Time In: 800 Time Out: 900 Total Billed Treatment Time: 60 Total Billed Treatment 1,GT30m,FA15m,EX15m STEPHANI MOTTA WIND UP WORKER Oct 15, 2021 08:56
[2021-10-15] MEDS: LORATADINE (CLARITIN) 10 MG TAB PO SCH (09:41)
[2021-10-15] MEDS: methylPREDNISolone 40 MG/ML (Solu-MEDROL) VIAL IV SCH ×2 (09:41→20:44)
[2021-10-15] MEDS: PANTOPRAZOLE 40 MG (PROTONIX) TAB PO SCH ×2 (09:42→20:42)
[2021-10-15] MEDS: SENNOSIDES 8.6 MG (SENOKOT) TAB PO SCH ×2 (09:42→20:41)
[2021-10-15] MEDS: DOCUSATE SODIUM 100 MG (COLACE) CAP PO SCH ×2 (09:42→20:40)
[2021-10-15] MEDS: TAMSULOSIN 0.4 MG (FLOMAX) CAP PO SCH ×2 (09:42→20:40)
[2021-10-15] MEDS: SENNA W/DOCUSATE (SENOKOT S) TABLET PO SCH ×2 (09:42→20:41)
[2021-10-15] MEDS: polyethylene glycoL POWDER 17 GM (MIRALAX) PACK PO SCH ×2 (11:49→20:39)
[2021-10-15] MEDS: CAL. POLYCARBOPHIL 625 MG (FIBERCON) TAB PO SCH (11:50)
--- NOTE | 2021-10-15 11:53 | Occupational Ther Daily Note ---
OT Current Status-Daily Note Subjective Pt alert, sitting in recliner. Pt becomes SOA easily and requires multiple recovery breaks throughout session. Pt agrees to therapy. Mental Status/Objective Patient Orientation: Person, Place, Time, Situation Attachments: IV, Oxygen (3L) ADL-Treatment Pt declines shower, agrees to sponge bath. Pt able to sit at sink to complete sponge bath, SBA when standing to cleanse buttocks then sitting to complete other areas. Set up for upper body and lower body dressing. Assist to don/doff LIZZETTE hose, set up to don/doff socks. Independent with oral care. After therapy, pt sitting in recliner with call light/phone in reach. All needs met in room. Therapy Code Descriptions/Definitions Functional [place] Measure: 0=Not Assessed/NA 4=Minimal Assistance 1=Total Assistance 5=Supervision or Setup 2=Maximal Assistance 6=Modified [place] 3=Moderate Assistance 7=Complete IndependenceSCALE: Activities may be completed with or without assistive devices. 2-Lkfuxtcpmg-ulcinbz completes the activity by him/herself with no assistance from a helper. 5-Set-up or Clean-up Assistance-helper sets up or cleans up; patient completes activity. [place] assists only prior to or following the activity. 4-Supervision or Touching Assistance-helper provides verbal cues and/or touchin g/steadying and/or contact guard assistance as patient completes activity. Assistance may be provided throughout the activity or intermittently. 3-Partial/Moderate Assistance-helper does LESS THAN HALF the effort. [place] lifts, holds or supports trunk or limbs, but provides less than half the effort. 2-Substantial/Maximal Assistance-helper does MORE THAN HALF the effort. [place] lifts or holds trunk or limbs and provides more than half the effort. 9-Dhypysglj-gclxgu does ALL the effort. Patient does none of the effort to complete the activity. Or, the assistance of 2 or more helpers is required for the patient to complete the activity. If activity was not attempted, code reason: 7-Patient Refused. 9-Not Applicable-not attempted and the patient did not perform the activity before the current illness, exacerbation or injury. 10-Not Attempted due to Environmental Limitations-(lack of equipment, weather restraints, etc.). 88-Not Attempted due to Medical Conditions or Safety Concerns. Oral Hygiene (QC): 6 Shower/Bathe Self (QC): 4 Upper Body Dressing (QC): 5 Lower Body Dressing (QC): 5 On/Off Footwear: 3 OT Short Term Goals Short Term Goals Time Frame: Oct 19, 2021 Eatin Oral hygiene: 5 Toileting hygiene: 4 Shower/bathe self: 4 Upper body dressin Lower body dressin Putting on/taking off footwear: 4 OT Mcc Goals [employer] Cutter Finisher Goals Time Frame: Oct 26, 2021 Eating (QC): 6 Oral Hygiene (QC): 6 Toileting Hygiene (QC): 6 Shower/Bathe Self (QC): 5 Upper Body Dressing (QC): 5 Lower Body Dressing (QC): 5 On/Off Footwear (QC): 5 1=Demonstrate adherence to instructed precautions during ADL tasks. 2=Patient will verbalize/demonstrate understanding of assistive devices/modifications for ADL. 3=Patient will improve strength/tolerance for activity to enable patient to perform ADL's. OT Education/Plan Problem List/Assessment Assessment: Decreased Activ Tolerance, Impaired Self-Care Skills Discharge Recommendations Plan/Recommendations: Continue POC Treatment Plan/Plan of Care Patient would benefit from OT for education, treatment and training to promote independence in ADL's, mobility, safety and/or upper extremity function for ADL's. Plan of Care: ADL Retraining, Functional Mobility, Group Exercise/Act as Ind, UE Funct Exercise/Act, W/C Management Training Treatment Duration: Oct 26, 2021 Frequency: At least 5 of 7 days/Wk (IRF) Estimated Hrs Per Day: 1.5 hours per day Agreement: Yes Rehab Potential: Fair Time/GCodes Start Time: 11:00 Stop Time: 12:00 Total Time Billed (hr/min): 60 Billed Treatment Time 1 visit-ADL 4 (60 min) HERNANDEZ MEDELLIN Oct 15, 2021 11:53
[2021-10-15] MEDS ORDERED: BUMETANIDE 1 MG/4 ML (BUMEX) VIAL IV ONE ×2 (13:30→13:45)
--- NOTE | 2021-10-15 13:34 | Cardiology Progress Note ---
Progress Note-Cardiology Events since last exam Date Seen by Provider: Oct 15, 2021 Time Seen by Provider: 13:29 Events since last exam I am following him due to atrial fibrillation and now probable volume overload, possibly heart failure. He is having dyspnea on exertion with physical therapy. He denies chest discomfort, palpitations, or syncope. He has persistent bilateral lower extremity edema. He has been having some issues with urination. He feels like his bladder will be empty but then bladder scans show a fair amount of residual urine. Certain portions of this document may have been dictated utilizing voice recognition technology. Inherent to this technology, typographical and grammatical errors may exist. As much as I am diligent to identify and correct these mistakes, some errors may remain in the document. Vitals Last set of Vitals Signs Vital Signs 10/13/21 10/15/21 10/15/21 11:16 07:59 09:00 Temp 36.4 Pulse 91 Resp 18 B/P (MAP) 126/72 (90) Pulse Ox 96 O2 Delivery High Flow N/C O2 Flow Rate 3.50 FiO2 32 Labs Labs Laboratory Tests 10/15/21 06:10 Exam Vital Signs Vital Signs Date Time Temp Pulse Resp B/P (MAP) Pulse Ox O2 Delivery O2 Flow Rate FiO2 10/15/21 09:00 High Flow N/C 3.50 10/15/21 07:59 36.4 91 18 126/72 (90) 96 10/13/21 11:16 32 Physical Exam General: Alert. No acute distress. He is overweight. Eye: No xanthelasma. HENT: Normocephalic. Neck: Jugular venous pressure does not appear elevated. Respiratory: Lungs are clear to auscultation. Respirations are non-labored. Breath sounds are equal. Symmetrical chest wall expansion. Cardiovascular: Normal rate. Regular rhythm. No murmur. No gallop. 2+ bilateral pretibial edema. Gastrointestinal: Soft. Normal bowel sounds. Skin: Warm. Dry. Neurologic: Alert and oriented to person, place, time. Cranial nerves 3-11 grossly intact. Psychiatric: Cooperative. Appropriate mood & affect. Labs Laboratory Tests Test 10/14/21 16:06 10/14/21 16:55 10/14/21 20:45 10/15/21 05:38 Range/Units Glucometer 113 H 144 H 127 H 70-110 MG/DL Stool Occult Blood Immunoassay POSITIVE H NEGATIVE Test 10/15/21 06:10 10/15/21 11:43 Range/Units White Blood Count 30.2 *H 4.3-11.0 10^3/uL Red Blood Count 2.92 L 4.30-5.52 10^6/uL Hemoglobin 8.1 L 13.3-17.7 g/dL Hematocrit 26 L 40-54 % Mean Corpuscular Volume 88 80-99 fL Mean Corpuscular Hemoglobin 28 25-34 pg Mean Corpuscular Hemoglobin Concent 31 L 32-36 g/dL Red Cell Distribution Width 16.2 H 10.0-14.5 % Platelet Count 594 H 130-400 10^3/uL Mean Platelet Volume 9.7 9.0-12.2 fL Immature Granulocyte % (Auto) 5 % Neutrophils (%) (Auto) 90 H 42-75 % Lymphocytes (%) (Auto) 2 L 12-44 % Monocytes (%) (Auto) 3 0-12 % Eosinophils (%) (Auto) 0 0-10 % Basophils (%) (Auto) 0 0-10 % Neutrophils # (Auto) 27.0 H 1.8-7.8 10^3/uL Lymphocytes # (Auto) 0.6 L 1.0-4.0 10^3/uL Monocytes # (Auto) 0.9 0.0-1.0 10^3/uL Eosinophils # (Auto) 0.0 0.0-0.3 10^3/uL Basophils # (Auto) 0.1 0.0-0.1 10^3/uL Immature Granulocyte # (Auto) 1.6 H 0.0-0.1 10^3/uL Sodium Level 134 L 135-145 MMOL/L Potassium Level 4.4 3.6-5.0 MMOL/L Chloride Level 104 98-107 MMOL/L Carbon Dioxide Level 24 21-32 MMOL/L Anion Gap 6 5-14 MMOL/L Blood Urea Nitrogen 33 H 7-18 MG/DL Creatinine 0.81 0.60-1.30 MG/DL Estimat Glomerular Filtration Rate 92 BUN/Creatinine Ratio 41 Glucose Level 132 H 70-105 MG/DL Calcium Level 7.6 L 8.5-10.1 MG/DL Corrected Calcium 8.7 8.5-10.1 MG/DL Total Bilirubin 0.4 0.1-1.0 MG/DL Aspartate Amino Transf (AST/SGOT) 20 5-34 U/L Alanine Aminotransferase (ALT/SGPT) 41 0-55 U/L Alkaline Phosphatase 72 40-136 U/L Total Protein 4.9 L 6.4-8.2 GM/DL Albumin 2.6 L 3.2-4.5 GM/DL Glucometer 108 70-110 MG/DL Diagnosis/Problems Diagnosis/Problems (1) Acute heart failure with preserved ejection fraction (HFpEF) Assessment & Plan: He probably does have some volume overload, possibly in part related to volume resuscitation when he was first admitted to the hospital. I will start him on intravenous diuretic. I will obtain follow-up chest x-ray in the morning. We will need to watch his renal function closely. (2) Paroxysmal atrial fibrillation Status: Acute Assessment & Plan: He initially was having sinus tachycardia and multifocal atrial tachycardia but towards the end of his acute hospitalization, he may have had at least a few episodes of atrial fibrillation. I placed the patient on rivaroxaban for stroke prophylaxis. He is on diltiazem for rate control. He seems to be remaining in sinus rhythm since being transferred to inpatient rehab. I discontinued telemetry last week. (3) Primary hypertension Status: Chronic Assessment & Plan: Blood pressures are reasonably controlled with the current dose of diltiazem. (4) Multifocal atrial tachycardia Status: Acute Assessment & Plan: As above, he was predominantly having multifocal atrial tachycardia. Now he is back in sinus rhythm. I recommend he continue on diltiazem. (5) Mixed hyperlipidemia Status: Chronic Assessment & Plan: Continue atorvastatin. (6) Acute kidney injury Status: Acute Assessment & Plan: His renal function now seems to have stabilized. We will need to monitor this closely with intravenous diuretic. SHERRI CHO JR, MD Oct 15, 2021 13:34
--- NOTE | 2021-10-15 14:23 | Therapy Group Daily Note ---
Therapy Daily Group Note Patient Education Topic Other List Below (what is ARU? , memory and strategies) Exercises LE Seated Exercise, UE Exercise Session Ratio (pt:therapist): 4:1 Goal of Session: Education on ARU Expectations, Memory Strategies Goal Met for this Session: Yes Pt Benefit of Group: Improved Cognition, Socialization Other/Notes Pt. participated in group session this date. Pt. came to from group via w/c and assist. Pts introduced themselves and shared their current home city. Pts were educated in he background, purpose and expectations of ARU. The importance of memory as well as strategies to help memory were discussed. A memory activity was played utilizing matching images and bag toss . Pt to room after Rx with all needs met, gama at hand Start Time: 13:00 Stop Time: 14:00 Total Billed Treatment Time: 60 Total Billed Treatment 1,GRP 60m STEPHANI MOTTA [employer] SYSTEMS REPAIRER Oct 15, 2021 14:23
[2021-10-15] MEDS ORDERED: LIDOCAINE UROJET 2% GEL 10 ML PKG ONE (15:35)
[2021-10-15] MEDS: MONTELUKAST 10 MG (SINGULAIR) TAB PO SCH (20:41)
[2021-10-15 21:01] VITALS: BP 127/66
[2021-10-16] MEDS: SUCRALFATE 1 GM (CARAFATE) TAB PO SCH ×4 (05:20→20:42)
[2021-10-16] MEDS: LACTOBACILLUS Acidoph/Bulgar 1 GM (LACTINEX) PACKET PO SCH ×4 (05:20→20:42)
[2021-10-16] MEDS: CATHETER FLUSH 10 ML SYR IV SCH ×3 (05:21→20:45)
[2021-10-16 05:45] LABS: ALBUMIN 2.8 GM/DL (3.2-4.5); POTASSIUM 4.4 MMOL/L (3.6-5.0)
--- NOTE | 2021-10-16 05:46 | PM&R Progress Note ---
Subjective HPI/CC On Admission Date Seen by Provider: Oct 16, 2021 Time Seen by Provider: 09:00 Subjective/Events-last exam 10/16/21: Pt is very complicated Dr. Izaguirre will see him ABG could not be obtained Chest x-ray reveals the infiltrate pulmonary edema Remains on 3.5L of O2 Xarelto is on hold IV iron infusions maintained IV Bumex ordered by Cardiology 10/15/21: Pt is doing about the same Pt had a formed BM Can't do c.diff on formed bowels Dr. Ford to see for volume overload White count down to 30,000 Holding anticoagulation due to hemoccult positive stools and anemia Hemoglobin 8.1 10/14/2021: Patient feels better Elevated white count he is suspicious Dark stool was Hemoccult and it is positive Consulted Dr. MARROQUIN and ordered proton pump inhibitor twice daily and Carafate and holding Xarelto C. difficile will be ordered due to significantly elevated white blood cell count but no fever or any other findings of infectious source Check meds labs Very complex issues 10/13/2021: Patient doing better Oxygen down to 3 L Gave Lasix 20 mg IV after I conferred with Dr. Colon Edema noted Labs revealed white count elevated due to steroid effect Antibiotics still on board LIZZETTE hose maintained Had BM yesterday Wheezing noted but no coarseness Urinary retention management 10/12/21: Pt dramatically improved Dr. Ford is monitoring Accapella is being used 4L of of O2 now Voiding well since Catheter removed Took a shower today he feels much better 10/11/21: Pt doing a lot better today Bowels are moving Catheter was discontinued Blood pressure is doing okay White count 20,000 from steroid Hemoglobin is 9.3 Remains on 4-6L of O2 and does increase with exertion Overall, much improved Review of Systems General: Fatigue, Malaise Pulmonary: Dyspnea, Cough Objective Exam Vital Signs Vital Signs Date Time Temp Pulse Resp B/P (MAP) Pulse Ox O2 Delivery O2 Flow Rate FiO2 10/16/21 21:00 98 High Flow N/C 4.00 10/16/21 20:33 36.6 89 20 112/62 (79) 10/13/21 11:16 32 Capillary Refill : General Appearance: WD/WN, Anxious, Chronically ill, Mild Distress HEENT: PERRL/EOMI, Normal ENT Inspection, Pharynx Normal Neck: Full Range of Motion, Normal Inspection, Non Tender, Supple, Carotid Bruit Respiratory: Chest Non Tender, No Respiratory Distress, Accessory Muscle Use, Decreased Breath Sounds, Rales, Wheezing Cardiovascular: Regular Rate, Rhythm, No Edema, No Gallop, No JVD, No Murmur, Normal Peripheral Pulses Gastrointestinal: Normal Bowel Sounds, No Organomegaly, No Pulsatile Mass, Non Tender, Soft Back: Normal Inspection, No CVA Tenderness, No Vertebral Tenderness Extremity: Normal Capillary Refill, Normal Inspection, Normal Range of Motion, Non Tender, No Calf Tenderness, No Pedal Edema Neurologic/Psychiatric: Alert, Oriented x3, No Motor/Sensory Deficits, Normal Mood/Affect Skin: Normal Color, Warm/Dry Lymphatic: No Adenopathy Results/Procedures Lab Laboratory Tests 10/16/21 06:02 Patient resulted labs reviewed. FIM Transfers Therapy Code Descriptions/Definitions Functional [place] Measure: 0=Not Assessed/NA 4=Minimal Assistance 1=Total Assistance 5=Supervision or Setup 2=Maximal Assistance 6=Modified [place] 3=Moderate Assistance 7=Complete IndependenceSCALE: Activities may be completed with or without assistive devices. 3-Semlxihxta-kfkhlnv completes the activity by him/herself with no assistance from a helper. 5-Set-up or Clean-up Assistance-helper sets up or cleans up; patient completes activity. Lorenzo assists only prior to or following the activity. 4-Supervision or Touching Assistance-helper provides verbal cues and/or touching/steadying and/or contact guard assistance as patient completes activity. Assistance may be provided throughout the activity or intermittently. 3-Partial/Moderate Assistance-helper does LESS THAN HALF the effort. Lorenzo lifts, holds or supports trunk or limbs, but provides less than half the effort. 2-Substantial/Maximal Assistance-helper does MORE THAN HALF the effort. Lorenzo lifts or holds trunk or limbs and provides more than half the effort. 1-Nqsetplpx-hfszhd does ALL the effort. Patient does none of the effort to complete the activity. Or, the assistance of 2 or more helpers is required for the patient to complete the activity. If activity was not attempted, code reason: 7-Patient Refused. 9-Not Applicable-not attempted and the patient did not perform the activity before the current illness, exacerbation or injury. 10-Not Attempted due to Environmental Limitations-(lack of equipment, weather restraints, etc.). 88-Not Attempted due to Medical Conditions or Safety Concerns. Roll Left to Right (QC): 6 Sit to Lying (QC): 4 Sit to Stand (QC): 6 Chair/Ane-da-Jybfi Xfer(QC): 5 Car Transfer (QC): 3 Gait Training Does the Patient Walk?: Yes Walk 10 feet (QC): 5 Walk 50 ft with 2 Turns(QC): 4 Walk 150 ft (QC): 88 Walking 10ft/uneven surface-QC: 88 Gait Persons Needed: 1 Gait Assistive Device: FWW Wheelchair Training Does the Pt Use a Wheelchair?: Yes Wheel 50 ft with 2 turns (QC): 1 Wheel 150 ft (QC): 1 Type of Wheelchair: Manual Stair Training 1 Step (curb) (QC): 88 4 Steps (QC): 88 12 Steps (QC): 88 Balance Picking up an Object (QC): 88 ADL-Treatment Eating (QC): 6 (Independent with set up and uses regular utensils to eat.) Oral Hygiene (QC): 6 Shower/Bathe Self (QC): 4 Upper Body Dressing (QC): 5 Lower Body Dressing (QC): 5 On/Off Footwear (QC): 3 Toileting Hygiene (QC): 3 (mod A) Toilet Transfer (QC): 4 Assessment/Plan Assessment and Plan Assess & Plan/Chief Complaint Assessment: Debility New onset AF w/recent RVR Active wheezing AECOPD Hypoxia PNA s/p septic shock CHAZ HTN Hypoxemia Urinary retention 10/13/21 Volume overload giving Lasix per Dr Ford Dark stool Hemoccult + 10/14/[address] MARROQUIN and change PPI to twice daily and added Carafate and holding Xarelto Severely elevated white count without source checking C. difficile C diff colitis placed on Vanc PO Plan: Monitor closely IV steroids IV abx DC cath tomorrow Supportive care 10/11/21: Monitor closely Cath DC 10/12/21: Doing extremely well Monitor closely 10/13/21: Lasix 20mgIV x [address] Colon Urinary retention management 10/14/2021: Check C. difficile Hold Xarelto PPI and Carafate 10/15/21: Appreciate Dr Ford Consult Dr Izaguirre 10/16/21: Vanc PO Monitor closely Complex case (1) Acute heart failure with preserved ejection fraction (HFpEF) Assessment & Plan: He probably does have some volume overload, possibly in part related to volume resuscitation when he was first admitted to the hospital. I will start him on intravenous diuretic. I will obtain follow-up chest x-ray in the morning. We will need to watch his renal function closely. (2) Paroxysmal atrial fibrillation Status: Acute Assessment & Plan: He initially was having sinus tachycardia and multifocal atrial tachycardia but towards the end of his acute hospitalization, he may have had at least a few episodes of atrial fibrillation. I placed the patient on rivaroxaban for stroke prophylaxis. He is on diltiazem for rate control. He seems to be remaining in sinus rhythm since being transferred to inpatient rehab. I discontinued telemetry last week. (3) Primary hypertension Status: Chronic Assessment & Plan: Blood pressures are reasonably controlled with the current dose of diltiazem. (4) Multifocal atrial tachycardia Status: Acute Assessment & Plan: As above, he was predominantly having multifocal atrial tachycardia. Now he is back in sinus rhythm. I recommend he continue on diltiazem. (5) Mixed hyperlipidemia Status: Chronic Assessment & Plan: Continue atorvastatin. (6) Acute kidney injury Status: Acute Assessment & Plan: His renal function now seems to have stabilized. We will need to monitor this closely with intravenous diuretic. FRANCISCO BHAKTA DO Oct 16, 2021 05:46
[2021-10-16 05:47] LABS: CALCIUM 7.7 MG/DL (8.5-10.1)
[2021-10-16 05:48] LABS: TOTAL PROTEIN 5.1 GM/DL (6.4-8.2)
[2021-10-16 05:50] LABS: BILIRUBIN,TOTAL 0.4 MG/DL (0.1-1.0)
[2021-10-16 05:51] LABS: CREATININE SERUM 0.85 MG/DL (0.60-1.30)
[2021-10-16 06:11] LABS: BASOPHILS # (AUTO) 0.1 10^3/uL (0.0-0.1); BASOPHILS % (AUTO) 0 % (0-10); EOSINOPHILS % (AUTO) 0 % (0-10); HEMATOCRIT 26 % (40-54); HEMOGLOBIN 8.3 g/dL (13.3-17.7); LYMPHOCYTES # (AUTO) 0.7 10^3/uL (1.0-4.0); LYMPHOCYTES % (AUTO) 2 % (12-44); MEAN CORPUSCULAR HEMOGLOBIN 28 pg (25-34); MEAN CORPUSCULAR HGB CONC 32 g/dL (32-36); MEAN CORPUSCULAR VOLUME 88 fL (80-99); MEAN PLATELET VOLUME 9.8 fL (9.0-12.2); MONOCYTES # (AUTO) 1.1 10^3/uL (0.0-1.0); MONOCYTES % (AUTO) 3 % (0-12); NEUTROPHILS # (AUTO) 30.4 10^3/uL (1.8-7.8); NEUTROPHILS % (AUTO) 91 % (42-75); PLATELET COUNT 623 10^3/uL (130-400)
[2021-10-16 06:13] LABS: WHITE BLOOD COUNT 33.6 10^3/uL (4.3-11.0)
[2021-10-16] MEDS: inSUlin ASPART (NovoLOG) 1 UNIT/0.01 ML (CHARGE PER UNIT) SC SCH ×4 (06:36→20:45)
[2021-10-16] MEDS: predniSONE 20 MG TAB PO SCH (06:37)
[2021-10-16] MEDS: RT-BUDESONIDE NEBS 0.5 MG/2ML (PULMICORT) AMP INH SCH ×2 (07:09→20:53)
[2021-10-16] MEDS: RT-ALBUTEROL/IPRATROPIUM 3 ML (DUONEB) VIAL INH SCH ×4 (07:09→20:53)
[2021-10-16] MEDS ORDERED: CEFEPIME INJECTION 1,000 MG in NS (IVPB) 50 ML IV SCH (07:14)
[2021-10-16 07:33] VITALS: BP 127/67
[2021-10-16] MEDS: TAMSULOSIN 0.4 MG (FLOMAX) CAP PO SCH ×2 (08:16→20:42)
[2021-10-16] MEDS: SENNOSIDES 8.6 MG (SENOKOT) TAB PO SCH ×2 (08:17→20:44)
[2021-10-16] MEDS: DOCUSATE SODIUM 100 MG (COLACE) CAP PO SCH ×2 (08:17→20:44)
[2021-10-16] MEDS: SENNA W/DOCUSATE (SENOKOT S) TABLET PO SCH ×2 (08:17→20:44)
[2021-10-16] MEDS: CAL. POLYCARBOPHIL 625 MG (FIBERCON) TAB PO SCH (08:17)
[2021-10-16] MEDS: PANTOPRAZOLE 40 MG (PROTONIX) TAB PO SCH ×2 (08:17→20:42)
[2021-10-16] MEDS: LORATADINE (CLARITIN) 10 MG TAB PO SCH (08:17)
[2021-10-16] MEDS: polyethylene glycoL POWDER 17 GM (MIRALAX) PACK PO SCH ×2 (08:17→20:44)
[2021-10-16] MEDS: IRON SUCROSE 200 MG/10 ML (VENOFER) VIAL IV SCH (08:19)
--- NOTE | 2021-10-16 08:59 | Cardiology Progress Note ---
Progress Note-Cardiology Events since last exam Date Seen by Provider: Oct 16, 2021 Time Seen by Provider: 08:58 Events since last exam I am following him due to heart failure and atrial arrhythmias. I started him on intravenous bumetanide on 10/15. He is still fairly short of breath with minimal activity. He still has significant peripheral edema. He denies chest discomfort, palpitations, or syncope. Certain portions of this document may have been dictated utilizing voice recognition technology. Inherent to this technology, typographical and grammatical errors may exist. As much as I am diligent to identify and correct these mistakes, some errors may remain in the document. Vitals Last set of Vitals Signs Vital Signs 10/13/21 10/16/21 11:16 07:33 Temp 36.2 Pulse 87 Resp 24 B/P (MAP) 127/67 (87) Pulse Ox 92 O2 Delivery Nasal Cannula O2 Flow Rate 4.00 FiO2 32 Labs Labs Laboratory Tests 10/16/21 05:24 10/16/21 06:02 Exam Vital Signs Vital Signs Date Time Temp Pulse Resp B/P (MAP) Pulse Ox O2 Delivery O2 Flow Rate FiO2 10/16/21 07:33 36.2 87 24 127/67 (87) 92 Nasal Cannula 4.00 10/13/21 11:16 32 Physical Exam General: Alert. No acute distress. He is overweight. Eye: No xanthelasma. HENT: Normocephalic. Neck: Jugular venous pressure does not appear elevated. Respiratory: Lungs are clear to auscultation but decreased breath sounds at the bases bilaterally. Respirations are non-labored. Breath sounds are equal. Symmetrical chest wall expansion. Cardiovascular: Normal rate. Regular rhythm. No murmur. No gallop. 2+ bilateral pretibial edema. Gastrointestinal: Soft. Normal bowel sounds. Skin: Warm. Dry. Neurologic: Alert and oriented to person, place, time. Cranial nerves 3-11 grossly intact. Psychiatric: Cooperative. Appropriate mood & affect. Labs Laboratory Tests Test 10/15/21 11:43 10/15/21 16:07 10/15/21 20:15 10/16/21 05:24 Range/Units Glucometer 108 130 H 141 H 70-110 MG/DL Sodium Level 136 135-145 MMOL/L Potassium Level 4.4 3.6-5.0 MMOL/L Chloride Level 103 98-107 MMOL/L Carbon Dioxide Level 24 21-32 MMOL/L Anion Gap 9 5-14 MMOL/L Blood Urea Nitrogen 31 H 7-18 MG/DL Creatinine 0.85 0.60-1.30 MG/DL Estimat Glomerular Filtration Rate 87 BUN/Creatinine Ratio 36 Glucose Level 133 H 70-105 MG/DL Calcium Level 7.7 L 8.5-10.1 MG/DL Corrected Calcium 8.7 8.5-10.1 MG/DL Total Bilirubin 0.4 0.1-1.0 MG/DL Aspartate Amino Transf (AST/SGOT) 22 5-34 U/L Alanine Aminotransferase (ALT/SGPT) 45 0-55 U/L Alkaline Phosphatase 75 40-136 U/L Total Protein 5.1 L 6.4-8.2 GM/DL Albumin 2.8 L 3.2-4.5 GM/DL Procalcitonin 0.36 H <0.10 NG/ML Test 10/16/21 06:02 Range/Units White Blood Count 33.6 *H 4.3-11.0 10^3/uL Red Blood Count 2.97 L 4.30-5.52 10^6/uL Hemoglobin 8.3 L 13.3-17.7 g/dL Hematocrit 26 L 40-54 % Mean Corpuscular Volume 88 80-99 fL Mean Corpuscular Hemoglobin 28 25-34 pg Mean Corpuscular Hemoglobin Concent 32 32-36 g/dL Red Cell Distribution Width 16.3 H 10.0-14.5 % Platelet Count 623 H 130-400 10^3/uL Mean Platelet Volume 9.8 9.0-12.2 fL Immature Granulocyte % (Auto) 4 % Neutrophils (%) (Auto) 91 H 42-75 % Lymphocytes (%) (Auto) 2 L 12-44 % Monocytes (%) (Auto) 3 0-12 % Eosinophils (%) (Auto) 0 0-10 % Basophils (%) (Auto) 0 0-10 % Neutrophils # (Auto) 30.4 H 1.8-7.8 10^3/uL Lymphocytes # (Auto) 0.7 L 1.0-4.0 10^3/uL Monocytes # (Auto) 1.1 H 0.0-1.0 10^3/uL Eosinophils # (Auto) 0.0 0.0-0.3 10^3/uL Basophils # (Auto) 0.1 0.0-0.1 10^3/uL Immature Granulocyte # (Auto) 1.3 H 0.0-0.1 10^3/uL Diagnosis/Problems Diagnosis/Problems (1) Acute heart failure with preserved ejection fraction (HFpEF) Assessment & Plan: He probably does have some volume overload, possibly in part related to volume resuscitation when he was first admitted to the hospital. I started him on intravenous diuretic on 10/15. His chest x-ray from 10/16 still shows bilateral pleural effusions. I will increase the dose of diuretic. We will need to watch his renal function closely. (2) Paroxysmal atrial fibrillation Status: Acute Assessment & Plan: He initially was having sinus tachycardia and multifocal atrial tachycardia but towards the end of his acute hospitalization, he may have had at least a few episodes of atrial fibrillation. I placed the patient on rivaroxaban for stroke prophylaxis. He is on diltiazem for rate control. He seems to be remaining in sinus rhythm since being transferred to inpatient rehab. I discontinued telemetry last week. (3) Primary hypertension Status: Chronic Assessment & Plan: Blood pressures are reasonably controlled with the current dose of diltiazem. (4) Multifocal atrial tachycardia Status: Acute Assessment & Plan: As above, he was predominantly having multifocal atrial tachycardia. Now he is back in sinus rhythm. I recommend he continue on diltiazem. (5) Mixed hyperlipidemia Status: Chronic Assessment & Plan: Continue atorvastatin. (6) Acute kidney injury Status: Acute Assessment & Plan: His renal function now seems to have stabilized. We will need to monitor this closely with intravenous diuretic. SHERRI CHO JR, MD Oct 16, 2021 08:59
[2021-10-16] MEDS ORDERED: BUMETANIDE 1 MG/4 ML (BUMEX) VIAL IV SCH ×2 (09:00)
[2021-10-16] MEDS ORDERED: LACTOBACILLUS Acidoph/Bulgar 1 GM (LACTINEX) PACKET PO SCH (09:15)
--- NOTE | 2021-10-16 09:45 | Diagnostic Imaging Report ---
INDICATION: Pneumonia with respiratory distress. COMPARISON: CT scan from 10/06/2020. FINDINGS: There is consolidated infiltrate in the right lower lobe. There are moderate bilateral pleural effusions with bibasilar atelectasis. The upper lungs appear clear. The heart is not enlarged. There is a central line on the left with the tip in the superior vena cava. IMPRESSION: 1. Consolidated pneumonia in the right lower lobe is again demonstrated. 2. Bilateral pleural effusions, larger on the right, with bibasilar atelectasis. Overall appearance has not changed significantly. Dictated by: Dictated on workstation # [id number]
--- NOTE | 2021-10-16 10:15 | Physical Therapy Daily Note ---
PT Daily Note-Current Subjective Pt sitting in recliner upon arrival. Pt agrees to PT but reports fatigued. Nursing also advised pt is being monitored for possible Cdiff. Pain Location: No Pain Reported Mental Status Patient Orientation: Person, Place, Situation Attachments: Oxygen, IV Transfers SCALE: Activities may be completed with or without assistive devices. 8-Lulbogkyyt-mvaoaty completes the activity by him/herself with no assistance from a helper. 5-Set-up or Clean-up Assistance-helper sets up or cleans up; patient completes activity. Louin assists only prior to or following the activity. 4-Supervision or Touching Assistance-helper provides verbal cues and/or touching/steadying and/or contact guard assistance as patient completes activity. Assistance may be provided throughout the activity or intermittently. 3-Partial/Moderate Assistance-helper does LESS THAN HALF the effort. Louin lifts, holds or supports trunk or limbs, but provides less than half the effort. 2-Substantial/Maximal Assistance-helper does MORE THAN HALF the effort. Louin lifts or holds trunk or limbs and provides more than half the effort. 5-Scddyzzqx-uvkikx does ALL the effort. Patient does none of the effort to complete the activity. Or, the assistance of 2 or more helpers is required for the patient to complete the activity. If activity was not attempted, code reason: 7-Patient Refused. 9-Not Applicable-not attempted and the patient did not perform the activity before the current illness, exacerbation or injury. 10-Not Attempted due to Environmental Limitations-(lack of equipment, weather restraints, etc.). 88-Not Attempted due to Medical Conditions or Safety Concerns. Sit to Stand (QC): 4 Weight Bearing Right Lower Extremity: Right Weight Bearing/Tolerated Left Lower Extremity: Left Weight Bearing/Tolerated Gait Training Does the Patient Walk?: Yes Distance: 20' x2 Walk 10 feet (QC): 5 Gait Persons Needed: 1 Gait Assistive Device: FWW Pt fatigues easily and needs RB. Exercises Supine Ex: Ankle pumps, Quad Set, Heel Slides, Short Arc Quads, Straight leg raise, Hip abd/add Supine Reps: 15 Seated Therapy Exercises: Ankle pumps, Long arc quads, Hip flexion, Glut set Seated Reps: 15 Treatments (800-900) Pt completes Seated EX then stands and amb. in room. Pt returns to recliner to rest. Pt completes Seated Ex again then reclines chair to complete Supine Ex. WIRE PREPARATION WORKER addresses questions from Pt. as well as Iron with Nurse as it is complete. Pt resting in recliner with all needs met, call light in hand. ([id number]) Pt reports not feeling well but able to show WIRE PREPARATION WORKER exercises he can complete in recliner. Pt resting in recliner at end of tx. All needs met, call light in hand. Assessment Current Status: Fair Progress Pt continues to fatigue easily and need frequent RBs. PT Short Term Goals Short Term Goals Time Frame: Oct 17, 2021 Roll Left & Right: 6 Sit to lyin Lying to sitting on side of be: 4 Sit to stand: 4 (SBA) Chair/nfj-jy-tioeb transfer: 4 (SBA) Walk 10 feet: 4 Walk 50 feet with two turns: 4 Walk 150 feet: 4 PT Executive Administrator Goals Chcf Goals PT Chcf Goals Time Frame: Oct 31, 2021 Roll Left & Right (QC): 6 Sit to Lying (QC): 6 Lying-Sitting on Side/Bed(QC): 6 Sit to Stand (QC): 6 Chair/Qqe-wy-Uqcys Xfer(QC): 6 Toilet Transfer (QC): 6 Car Transfer (QC): 3 Does the Patient Walk: Yes Walk 10 feet (QC): 6 Walk 50ft with 2 Turns (QC): 6 Walk 150 ft (QC): 6 Walking 10ft on Uneven Surface: 4 1 Step (curb) (QC): 4 4 Steps (QC): 4 12 Steps (QC): 88 Picking up an Object (QC): 4 Wheel 50 feet with 2 turns (QC: 9 Wheel 150 feet: 9 PT Plan Problem List Problem List: Activity Tolerance, Functional Strength Treatment/Plan Treatment Plan: Continue Plan of Care Treatment Plan: Bed Mobility, Education, Functional Activity Tatiana, Functional Strength, Group Therapy, Gait, Safety, Therapeutic Exercise, Transfers Treatment Duration: Oct 31, 2021 Frequency: At least 5 of 7 days/Wk (IRF) Estimated Hrs Per Day: 1.5 hours per day Patient and/or Family Agrees t: Yes Safety Risks/Education Patient Education: Gait Training, Transfer Techniques Teaching Recipient: Patient Teaching Methods: Discussion Response to Teaching: Verbalize Understanding Time/GCodes Time In: 800 Time Out: 900 Total Billed Treatment Time: 60 Total Billed Treatment 800-900: 1, EX x2 (30m), GT (15m) & FA (15m) [id number]: 1, FA (15m) ANDREA MILLIGAN WIRE PREPARATION WORKER Oct 16, 2021 10:15
[2021-10-16] MEDS: VANCOMYCIN 125 MG CAPSULE PO SCH ×3 (10:25→17:07)
--- NOTE | 2021-10-16 11:17 | Occupational Ther Daily Note ---
OT Current Status-Daily Note Subjective Pt exhibiting SOA upon arrival. Reports significant fatigue post physical therapy and x-ray Appearance Left sitting in chair, respiratory therapy in room. Mental Status/Objective Patient Orientation: Person, Place, Situation Attachments: IV, Oxygen, Telemetry ADL-Treatment Therapy Code Descriptions/Definitions Functional [place] Measure: 0=Not Assessed/NA 4=Minimal Assistance 1=Total Assistance 5=Supervision or Setup 2=Maximal Assistance 6=Modified [place] 3=Moderate Assistance 7=Complete IndependenceSCALE: Activities may be completed with or without assistive devices. 3-Waekahjmdd-nfijuzu completes the activity by him/herself with no assistance from a helper. 5-Set-up or Clean-up Assistance-helper sets up or cleans up; patient completes activity. Bliss assists only prior to or following the activity. 4-Supervision or Touching Assistance-helper provides verbal cues and/or touching/steadying and/or contact guard assistance as patient completes activity. Assistance may be provided throughout the activity or intermittently. 3-Partial/Moderate Assistance-helper does LESS THAN HALF the effort. Bliss lifts, holds or supports trunk or limbs, but provides less than half the effort. 2-Substantial/Maximal Assistance-helper does MORE THAN HALF the effort. Bliss lifts or holds trunk or limbs and provides more than half the effort. 1-Wvsjhuyge-mbefpr does ALL the effort. Patient does none of the effort to complete the activity. Or, the assistance of 2 or more helpers is required for the patient to complete the activity. If activity was not attempted, code reason: 7-Patient Refused. 9-Not Applicable-not attempted and the patient did not perform the activity before the current illness, exacerbation or injury. 10-Not Attempted due to Environmental Limitations-(lack of equipment, weather restraints, etc.). 88-Not Attempted due to Medical Conditions or Safety Concerns. Lower Body Dressing (QC): 3 On/Off Footwear: 2 Toileting Hygiene (QC): 3 (required assist with diana care this date) Toilet Transfer (QC): 4 Pt exhibiting SOA upon arrival. O2 checked with pt reading in low 60's. It is difficult to get accurate reading from pt's finger and OT requested pt get ear probe. Per further investigating, it was found that pt's oxygen tubing was not connected to wall. Once OT reconnected tubing, pt still in low 80's. Lengthy rest breaks needed throughout session secondary to fatigue and need to recover. Once ear probe available, O2 in mid 90's. Pt requests to defer shower. Agreeable to take partial sponge bath. Set up for upper and lower body with extra time for rest breaks. Assist to don/doff tylor hose/socks. Min a needed to don pants over feet this date due to fatigue. Pt able to stand and pullman car repairer hips with supervision only. He declined donning shirt and requested to wear hospital gown. For future sessions, Pt will need break in between therapies as he cannot tolerate back to back 2 hours. Education OT Patient Education: Correct positioning, Energy conservation, Modified ADL techniques, Purpose of tx/functional activities, Safety issues, Transfer techniques Teaching Recipient: Patient Teaching Methods: Discussion Response to Teaching: Verbalize Understanding, Reinforcement Needed OT Short Term Goals Short Term Goals Time Frame: Oct 19, 2021 Eatin Oral hygiene: 5 Toileting hygiene: 4 Shower/bathe self: 4 Upper body dressin Lower body dressin Putting on/taking off footwear: 4 OT Mcfp Goals Mental Health Assistant Goals Time Frame: Oct 26, 2021 Eating (QC): 6 Oral Hygiene (QC): 6 Toileting Hygiene (QC): 6 Shower/Bathe Self (QC): 5 Upper Body Dressing (QC): 5 Lower Body Dressing (QC): 5 On/Off Footwear (QC): 5 1=Demonstrate adherence to instructed precautions during ADL tasks. 2=Patient will verbalize/demonstrate understanding of assistive devices/modifications for ADL. 3=Patient will improve strength/tolerance for activity to enable patient to perform ADL's. OT Education/Plan Problem List/Assessment Assessment: Decreased Activ Tolerance, Decreased UE Strength, Edema, Impaired Funct Balance, Impaired I ADL's, Impaired Self-Care Skills Discharge Recommendations Plan/Recommendations: Continue POC Treatment Plan/Plan of Care Treatment,Training & Education: Yes Patient would benefit from OT for education, treatment and training to promote independence in ADL's, mobility, safety and/or upper extremity function for ADL's. Plan of Care: ADL Retraining, Functional Mobility, Group Exercise/Act as Ind, UE Funct Exercise/Act, W/C Management Training Treatment Duration: Oct 26, 2021 Frequency: At least 5 of 7 days/Wk (IRF) Estimated Hrs Per Day: 1.5 hours per day Agreement: Yes Rehab Potential: Fair Time/GCodes Start Time: 09:00 Stop Time: 10:15 Total Time Billed (hr/min): 75 Billed Treatment Time 1 visit ADL x5 Tamiko Fox OT Oct 16, 2021 11:17
--- NOTE | 2021-10-16 12:39 | Progress Note ---
Subjective Date Seen by a Provider: Oct 16, 2021 Time Seen by a Provider: 12:00 Subjective/Events-last exam doing well. no signs clinical bleed. tolerating diet. Objective Exam Vital Signs Date Time Temp Pulse Resp B/P (MAP) Pulse Ox O2 Delivery O2 Flow Rate FiO2 10/16/21 10:53 96 Nasal Cannula 4.00 10/16/21 09:00 High Flow N/C 4.00 10/16/21 07:33 36.2 87 24 127/67 (87) 92 Nasal Cannula 4.00 10/16/21 07:12 98 Nasal Cannula 3.00 10/16/21 07:11 98 Nasal Cannula 3.00 10/15/21 21:02 89 Nasal Cannula 3.00 10/15/21 21:01 36.5 93 20 127/66 (86) 96 10/15/21 21:00 96 High Flow N/C 3.50 10/15/21 14:39 94 Nasal Cannula 3.00 I & O 10/16/21 07:00 Intake Total 1420 ml Output Total 4050 ml Balance -2630 ml Capillary Refill : General Appearance: No Apparent Distress HEENT: PERRL/EOMI Neck: Full Range of Motion Respiratory: Chest Non Tender Cardiovascular: Regular Rate, Rhythm Gastrointestinal: normal bowel sounds, non tender, soft Extremity: Normal Capillary Refill Neurologic/Psychiatric: Alert, Oriented x3 Skin: Normal Color Lymphatic: No Adenopathy Results Lab Laboratory Tests 10/15/21 16:07: Glucometer 130H 10/15/21 20:15: Glucometer 141H 10/16/21 05:24: Sodium Level 136, Potassium Level 4.4, Chloride Level 103, Carbon Dioxide Level 24, Anion Gap 9, Blood Urea Nitrogen 31H, Creatinine 0.85, Estimat Glomerular Filtration Rate 87, BUN/Creatinine Ratio 36, Glucose Level 133H, Calcium Level 7.7L, Corrected Calcium 8.7, Total Bilirubin 0.4, Aspartate Amino Transf (AST/SGOT) 22, Alanine Aminotransferase (ALT/SGPT) 45, Alkaline Phosphatase 75, Total Protein 5.1L, Albumin 2.8L, Procalcitonin 0.36H 10/16/21 06:02: White Blood Count 33.6*H, Red Blood Count 2.97L, Hemoglobin 8.3L, Hematocrit 26L , Mean Corpuscular Volume 88, Mean Corpuscular Hemoglobin 28, Mean Corpuscular Hemoglobin Concent 32, Red Cell Distribution Width 16.3H, Platelet Count 623H, Mean Platelet Volume 9.8, Immature Granulocyte % (Auto) 4, Neutrophils (%) (Auto) 91H, Lymphocytes (%) (Auto) 2L, Monocytes (%) (Auto) 3, Eosinophils (%) (Auto) 0, Basophils (%) (Auto) 0, Neutrophils # (Auto) 30.4H, Lymphocytes # (Auto) 0.7L, Monocytes # (Auto) 1.1H, Eosinophils # (Auto) 0.0, Basophils # (Auto) 0.1, Immature Granulocyte # (Auto) 1.3H 10/16/21 10:57: Glucometer 189H Microbiology 10/15/21 C. difficile GD Antigen & Toxins - Final, Complete Assessment/Plan Assessment/Plan Assess & Plan/Chief Complaint anemia with bilat pnuemonia. prep and EGD and colonoscopy friday(10/19). EDVIN MARROQUIN MD Oct 16, 2021 12:39
--- NOTE | 2021-10-16 13:11 | Speech Therapy Daily Note ---
Speech Daily Progress Note Subjective Time Seen by Provider: 10:30 Pt sitting up in recliner. States he is not feeling well. Agreeable for speech therapy session. Objective Pt completed orientation task given min cues with 90% accy. Memory task completed with 70% accy. Pt states he used to drive, take care of bills, and manage money prior to admission. He states his daughter and are taking care of eveyrthing currently. Assessment Assessment Current Status: Good Progress Treatment Plan Continue Plan of Care Speech Short Term Goals Short Term Goals Short Term Goals 1. The patient will display 80% accuracy with problem solving exercises, independently. 2. The patient will demonstrate 80% accuracy with memory exercises, independently. Time Frame-STG: One Week Speech [facility] Goals Education Research Analyst Goals 1. The patient will display increased cognitive linguistic abilities for improved independence with ADL's in the least restrictive environment. Time Frame: Two Weeks Speech-Plan Treatment Plan Speech Therapy Treatment Plan: Continue Plan of Care Treatment Duration: Nov 07, 2021 Frequency: 4 times per week (Four to five times per week.) Estimated Hrs Per Day: .5 hour per day Rehab Potential: Fair Time Speech Therapy Time In: 10:30 Speech Therapy Time Out: 11:00 Billed Treatment Time 30 min 1, GAETANO DICKERSON Oct 16, 2021 13:11
[2021-10-16] MEDS: CEFEPIME INJECTION 1,000 MG in NS (IVPB) 50 ML IV SCH ×2 (13:53→20:38)
--- NOTE | 2021-10-16 14:15 | CONSULTATION REPORT ---
DATE OF SERVICE: 10/16/2021 ATTENDING PHYSICIAN: Dr. Chase. SUMMARY: After reviewing the patient's record and interviewing him, this is an 81-year-old white man transferred from [facility] for debility, who was found having some urinary retention with postvoid residual. He was started on Flomax about three days ago twice a day. He has a high suspicion of C. diff with diarrhea at this point. Physical exam was deferred. IMPRESSION: Urinary retention, benign prostatic hyperplasia and/or neurogenic bladder. PLAN: 1. Continue Flomax b.i.d. 2. Refrain from using Urecholine for respiratory problems and diarrhea. 3. Postvoid residual bladder scan b.i.d. and p.r.n. and straight cath if over 300. 4. We will hold off on his physical exam rectally as well as cystoscopy at this point until we clear up the issue with C. diff. Job ID: [id number] DocumentID: [id number] Dictated Date: 10/16/2021 11:34:27 Workers Compensation Claims Examiner Date: 10/16/2021 14:14:45 Dictated By: ATILIO WILSON MD
[2021-10-16] MEDS ORDERED: LIDOCAINE UROJET 2% GEL 10 ML PKG ONE (14:54)
[2021-10-16 20:33] VITALS: BP 112/62
[2021-10-16] MEDS: MONTELUKAST 10 MG (SINGULAIR) TAB PO SCH (20:42)
[2021-10-17] MEDS: VANCOMYCIN 125 MG CAPSULE PO SCH ×5 (01:01→23:28)
[2021-10-17] MEDS: CEFEPIME INJECTION 1,000 MG in NS (IVPB) 50 ML IV SCH (01:02)
[2021-10-17] MEDS: CATHETER FLUSH 10 ML SYR IV SCH ×3 (01:03→20:27)
[2021-10-17] MEDS: LACTOBACILLUS Acidoph/Bulgar 1 GM (LACTINEX) PACKET PO SCH ×4 (05:58→21:04)
[2021-10-17] MEDS: SUCRALFATE 1 GM (CARAFATE) TAB PO SCH ×4 (05:58→21:04)
[2021-10-17] MEDS: predniSONE 20 MG TAB PO SCH (05:58)
[2021-10-17] MEDS: inSUlin ASPART (NovoLOG) 1 UNIT/0.01 ML (CHARGE PER UNIT) SC SCH ×4 (06:02→20:21)
[2021-10-17 06:11] LABS: BASOPHILS # (AUTO) 0.1 10^3/uL (0.0-0.1); BASOPHILS % (AUTO) 0 % (0-10); EOSINOPHILS % (AUTO) 0 % (0-10); HEMATOCRIT 26 % (40-54); LYMPHOCYTES # (AUTO) 1.1 10^3/uL (1.0-4.0); LYMPHOCYTES % (AUTO) 4 % (12-44); MEAN CORPUSCULAR HEMOGLOBIN 28 pg (25-34); MEAN CORPUSCULAR HGB CONC 31 g/dL (32-36); MEAN CORPUSCULAR VOLUME 88 fL (80-99); MEAN PLATELET VOLUME 9.7 fL (9.0-12.2); MONOCYTES # (AUTO) 1.5 10^3/uL (0.0-1.0); MONOCYTES % (AUTO) 5 % (0-12); NEUTROPHILS # (AUTO) 24.7 10^3/uL (1.8-7.8); NEUTROPHILS % (AUTO) 87 % (42-75); PLATELET COUNT 621 10^3/uL (130-400); WHITE BLOOD COUNT 28.3 10^3/uL (4.3-11.0)
[2021-10-17 06:31] LABS: ALBUMIN 2.7 GM/DL (3.2-4.5)
[2021-10-17 06:33] LABS: CALCIUM 7.6 MG/DL (8.5-10.1)
[2021-10-17 06:34] LABS: TOTAL PROTEIN 4.9 GM/DL (6.4-8.2)
[2021-10-17 06:36] LABS: BILIRUBIN,TOTAL 0.4 MG/DL (0.1-1.0)
[2021-10-17 06:37] LABS: CREATININE SERUM 0.92 MG/DL (0.60-1.30)
--- NOTE | 2021-10-17 07:04 | PM&R Progress Note ---
Subjective HPI/CC On Admission Date Seen by Provider: Oct 17, 2021 Time Seen by Provider: 11:45 Subjective/Events-last exam 10/17/21: Pt is doing pretty well C-diff was negative but I think the elevated white count and loose stools are still at risk for C-diff. Maintain Vancomycin PO Venofer iron infusions maintained EGD and colonoscopy for Friday Improved dyspnea with Bumex 10/16/21: Pt is very complicated Dr. Izaguirre will see him ABG could not be obtained Chest x-ray reveals the infiltrate pulmonary edema Remains on 3.5L of O2 Xarelto is on hold IV iron infusions maintained IV Bumex ordered by Cardiology 10/15/21: Pt is doing about the same Pt had a formed BM Can't do c.diff on formed bowels Dr. Ford to see for volume overload White count down to 30,000 Holding anticoagulation due to hemoccult positive stools and anemia Hemoglobin 8.1 10/14/2021: Patient feels better Elevated white count he is suspicious Dark stool was Hemoccult and it is positive Consulted Dr. MARROQUIN and ordered proton pump inhibitor twice daily and Carafate and holding Xarelto C. difficile will be ordered due to significantly elevated white blood cell count but no fever or any other findings of infectious source Check meds labs Very complex issues 10/13/2021: Patient doing better Oxygen down to 3 L Gave Lasix 20 mg IV after I conferred with Dr. Colon Edema noted Labs revealed white count elevated due to steroid effect Antibiotics still on board LIZZETTE hose maintained Had BM yesterday Wheezing noted but no coarseness Urinary retention management 10/12/21: Pt dramatically improved Dr. Ford is monitoring Accapella is being used 4L of of O2 now Voiding well since Catheter removed Took a shower today he feels much better 10/11/21: Pt doing a lot better today Bowels are moving Catheter was discontinued Blood pressure is doing okay White count 20,000 from steroid Hemoglobin is 9.3 Remains on 4-6L of O2 and does increase with exertion Overall, much improved Review of Systems General: Fatigue, Malaise Pulmonary: Dyspnea Objective Exam Vital Signs Vital Signs Date Time Temp Pulse Resp B/P (MAP) Pulse Ox O2 Delivery O2 Flow Rate FiO2 10/17/21 21:06 97 High Flow N/C 3.00 10/17/21 20:13 36.9 87 20 108/56 (73) 10/13/21 11:16 32 Capillary Refill : General Appearance: WD/WN, Anxious, Chronically ill, Mild Distress HEENT: PERRL/EOMI, Normal ENT Inspection, Pharynx Normal Neck: Full Range of Motion, Normal Inspection, Non Tender, Supple, Carotid Bruit Respiratory: Chest Non Tender, No Respiratory Distress, Accessory Muscle Use, Decreased Breath Sounds, Rales, Wheezing Cardiovascular: Regular Rate, Rhythm, No Edema, No Gallop, No JVD, No Murmur, Normal Peripheral Pulses Gastrointestinal: Normal Bowel Sounds, No Organomegaly, No Pulsatile Mass, Non Tender, Soft Back: Normal Inspection, No CVA Tenderness, No Vertebral Tenderness Extremity: Normal Capillary Refill, Normal Inspection, Normal Range of Motion, Non Tender, No Calf Tenderness, No Pedal Edema Neurologic/Psychiatric: Alert, Oriented x3, No Motor/Sensory Deficits, Normal Mood/Affect Skin: Normal Color, Warm/Dry Lymphatic: No Adenopathy Results/Procedures Lab Laboratory Tests 10/17/21 05:55 Patient resulted labs reviewed. FIM Transfers Therapy Code Descriptions/Definitions Functional [place] Measure: 0=Not Assessed/NA 4=Minimal Assistance 1=Total Assistance 5=Supervision or Setup 2=Maximal Assistance 6=Modified [place] 3=Moderate Assistance 7=Complete IndependenceSCALE: Activities may be completed with or without assistive devices. 9-Jrzbbfsliz-iqaajeg completes the activity by him/herself with no assistance from a helper. 5-Set-up or Clean-up Assistance-helper sets up or cleans up; patient completes activity. [place] assists only prior to or following the activity. 4-Supervision or Touching Assistance-helper provides verbal cues and/or touching/steadying and/or contact guard assistance as patient completes activity. Assistance may be provided throughout the activity or intermittently. 3-Partial/Moderate Assistance-helper does LESS THAN HALF the effort. [place] lif ts, holds or supports trunk or limbs, but provides less than half the effort. 2-Substantial/Maximal Assistance-helper does MORE THAN HALF the effort. [place] lifts or holds trunk or limbs and provides more than half the effort. 9-Erjgtvmte-wtsvrx does ALL the effort. Patient does none of the effort to complete the activity. Or, the assistance of 2 or more helpers is required for the patient to complete the activity. If activity was not attempted, code reason: 7-Patient Refused. 9-Not Applicable-not attempted and the patient did not perform the activity before the current illness, exacerbation or injury. 10-Not Attempted due to Environmental Limitations-(lack of equipment, weather restraints, etc.). 88-Not Attempted due to Medical Conditions or Safety Concerns. Roll Left to Right (QC): 6 Sit to Lying (QC): 4 Sit to Stand (QC): 4 Chair/Ebh-br-Ixwve Xfer(QC): 5 Car Transfer (QC): 3 Gait Training Does the Patient Walk?: Yes Distance: 20' x2 Walk 10 feet (QC): 5 Walk 50 ft with 2 Turns(QC): 4 Walk 150 ft (QC): 88 Walking 10ft/uneven surface-QC: 88 Gait Persons Needed: 1 Gait Assistive Device: FWW Wheelchair Training Does the Pt Use a Wheelchair?: Yes Wheel 50 ft with 2 turns (QC): 1 Wheel 150 ft (QC): 1 Type of Wheelchair: Manual Stair Training 1 Step (curb) (QC): 88 4 Steps (QC): 88 12 Steps (QC): 88 Balance Picking up an Object (QC): 88 ADL-Treatment Eating (QC): 6 (Independent with set up and uses regular utensils to eat.) Oral Hygiene (QC): 6 Shower/Bathe Self (QC): 4 Upper Body Dressing (QC): 5 Lower Body Dressing (QC): 3 On/Off Footwear (QC): 2 Toileting Hygiene (QC): 3 (required assist with diana care this date) Toilet Transfer (QC): 4 Assessment/Plan Assessment and Plan Assess & Plan/Chief Complaint Assessment: Debility New onset AF w/recent RVR Active wheezing AECOPD Hypoxia PNA s/p septic shock CHAZ HTN Hypoxemia Urinary retention 10/13/21 Volume overload giving Lasix per Dr Ford Dark stool Hemoccult + 10/14/[address] MARROQUIN and change PPI to twice daily and added Carafate and holding Xarelto Severely elevated white count without source checking C. difficile C diff colitis placed on Vanc PO Plan: Monitor closely IV steroids IV abx DC cath tomorrow Supportive care 10/11/21: Monitor closely Cath DC 10/12/21: Doing extremely well Monitor closely 10/13/21: Lasix 20mgIV x [address] Colon Urinary retention management 10/14/2021: Check C. difficile Hold Xarelto PPI and Carafate 10/15/21: Appreciate Dr Ford Consult Dr Izaguirre 10/16/21: Vanc PO Monitor closely Complex case 10/17/21: Vanc PO C diff negative but still suspicious (1) Acute heart failure with preserved ejection fraction (HFpEF) Assessment & Plan: He probably does have some volume overload, possibly in part related to volume resuscitation when he was first admitted to the hospital. I started him on intravenous diuretic on 10/15. His chest x-ray from 10/16 still shows bilateral pleural effusions. I will increase the dose of diuretic. We will need to watch his renal function closely. (2) Paroxysmal atrial fibrillation Status: Acute Assessment & Plan: He initially was having sinus tachycardia and multifocal atrial tachycardia but towards the end of his acute hospitalization, he may have had at least a few episodes of atrial fibrillation. I placed the patient on rivaroxaban for stroke prophylaxis. He is on diltiazem for rate control. He seems to be remaining in sinus rhythm since being transferred to inpatient [facility]. I discontinued telemetry last week. (3) Primary hypertension Status: Chronic Assessment & Plan: Blood pressures are reasonably controlled with the current dose of diltiazem. (4) Multifocal atrial tachycardia Status: Acute Assessment & Plan: As above, he was predominantly having multifocal atrial tachycardia. Now he is back in sinus rhythm. I recommend he continue on diltiazem. (5) Mixed hyperlipidemia Status: Chronic Assessment & Plan: Continue atorvastatin. (6) Acute kidney injury Status: Acute Assessment & Plan: His renal function now seems to have stabilized. We will need to monitor this closely with intravenous diuretic. FRANCISCO BHAKTA DO Oct 17, 2021 07:04
[2021-10-17 07:52] VITALS: BP 110/54
[2021-10-17] MEDS: RT-ALBUTEROL/IPRATROPIUM 3 ML (DUONEB) VIAL INH SCH ×4 (08:11→20:03)
[2021-10-17] MEDS: RT-BUDESONIDE NEBS 0.5 MG/2ML (PULMICORT) AMP INH SCH ×2 (08:12→20:05)
--- NOTE | 2021-10-17 09:02 | Physical Therapy Daily Note ---
PT Daily Note-Current Subjective Pt is in BR upon arrival. Pt agrees to PT. Pain Location: No Pain Reported Mental Status Patient Orientation: Person, Place, Time, Situation Attachments: Oxygen, IV Transfers SCALE: Activities may be completed with or without assistive devices. 2-Izzklvtcef-uqvhzhx completes the activity by him/herself with no assistance from a helper. 5-Set-up or Clean-up Assistance-helper sets up or cleans up; patient completes activity. [place] assists only prior to or following the activity. 4-Supervision or Touching Assistance-helper provides verbal cues and/or to uching/steadying and/or contact guard assistance as patient completes activity. Assistance may be provided throughout the activity or intermittently. 3-Partial/Moderate Assistance-helper does LESS THAN HALF the effort. [place] lifts, holds or supports trunk or limbs, but provides less than half the effort. 2-Substantial/Maximal Assistance-helper does MORE THAN HALF the effort. [place] lifts or holds trunk or limbs and provides more than half the effort. 1-Omdhaxrip-xpaptq does ALL the effort. Patient does none of the effort to complete the activity. Or, the assistance of 2 or more helpers is required for the patient to complete the activity. If activity was not attempted, code reason: 7-Patient Refused. 9-Not Applicable-not attempted and the patient did not perform the activity before the current illness, exacerbation or injury. 10-Not Attempted due to Environmental Limitations-(lack of equipment, weather restraints, etc.). 88-Not Attempted due to Medical Conditions or Safety Concerns. Sit to Stand (QC): 5 Toilet Transfer (QC): 5 Weight Bearing Right Lower Extremity: Right Weight Bearing/Tolerated Left Lower Extremity: Left Weight Bearing/Tolerated Gait Training Does the Patient Walk?: Yes Distance: 15' Walk 10 feet (QC): 5 Gait Persons Needed: 1 Gait Assistive Device: FWW Exercises Supine Ex: Ankle pumps, Quad Set, Glut sets, Heel Slides, Straight leg raise, Hip abd/add Supine Reps: 15 Treatments After finishing in BR, pt is able to complete pericare. TF to standing and amb. in room. Pt resting in recliner. Pt completes Supine Ex in recliner with short RB as needed. Pt resting in recliner at end of tx with feet up . All needs met, call light in hand. Assessment Current Status: Fair Progress Pt still needs RB as pt fatigues and reports SOA. Pt also feels he needs a BM but can't. PT Short Term Goals Short Term Goals Time Frame: Oct 17, 2021 Roll Left & Right: 6 Sit to lyin Lying to sitting on side of be: 4 Sit to stand: 4 (SBA) Chair/sft-bp-ajxrw transfer: 4 (SBA) Walk 10 feet: 4 Walk 50 feet with two turns: 4 Walk 150 feet: 4 PT Fly Raiser Lockstitch Goals Skilled Nursing Goals PT Fly Raiser Lockstitch Goals Time Frame: Oct 31, 2021 Roll Left & Right (QC): 6 Sit to Lying (QC): 6 Lying-Sitting on Side/Bed(QC): 6 Sit to Stand (QC): 6 Chair/Syj-uc-Rkdfe Xfer(QC): 6 Toilet Transfer (QC): 6 Car Transfer (QC): 3 Does the Patient Walk: Yes Walk 10 feet (QC): 6 Walk 50ft with 2 Turns (QC): 6 Walk 150 ft (QC): 6 Walking 10ft on Uneven Surface: 4 1 Step (curb) (QC): 4 4 Steps (QC): 4 12 Steps (QC): 88 Picking up an Object (QC): 4 Wheel 50 feet with 2 turns (QC: 9 Wheel 150 feet: 9 PT Plan Problem List Problem List: Activity Tolerance, Functional Strength Treatment/Plan Treatment Plan: Continue Plan of Care Treatment Plan: Bed Mobility, Education, Functional Activity Tatiana, Functional Strength, Group Therapy, Gait, Safety, Therapeutic Exercise, Transfers Treatment Duration: Oct 31, 2021 Frequency: At least 5 of 7 days/Wk (IRF) Estimated Hrs Per Day: 1.5 hours per day Patient and/or Family Agrees t: Yes Time/GCodes Time In: 800 Time Out: 900 Total Billed Treatment Time: 60 Total Billed Treatment 1, FA x2 (30m) & EX x2 (30m) ANDREA MILLIGAN PTA Oct 17, 2021 09:02
--- NOTE | 2021-10-17 09:08 | Progress Note - Urology ---
Progress Note-Urology Progress Notes/Assess & Plan Progress/Assessment & Plan VOIDING ON OWN BUT PVR YESTERDAY 475. CONTINUE SAME PLAN Final Diagnosis RETENTION ATILIO WILSON MD Oct 17, 2021 09:08
--- NOTE | 2021-10-17 09:12 | Cardiology Progress Note ---
Progress Note-Cardiology Events since last exam Date Seen by Provider: Oct 17, 2021 Time Seen by Provider: 09:11 Events since last exam I am following him due to heart failure. He is still fairly short of breath with activity. His peripheral edema is minimally changed. He denies chest discomfort, palpitations, or syncope. Certain portions of this document may have been dictated utilizing voice recognition technology. Inherent to this technology, typographical and grammatical errors may exist. As much as I am diligent to identify and correct these mistakes, some errors may remain in the document. Vitals Last set of Vitals Signs Vital Signs 10/13/21 10/17/21 11:16 07:52 Temp 36.4 Pulse 91 Resp 20 B/P (MAP) 110/54 (72) Pulse Ox 94 O2 Delivery Nasal Cannula O2 Flow Rate 3.00 FiO2 32 Labs Labs Laboratory Tests 10/17/21 05:55 Exam Vital Signs Vital Signs Date Time Temp Pulse Resp B/P (MAP) Pulse Ox O2 Delivery O2 Flow Rate FiO2 10/17/21 07:52 36.4 91 20 110/54 (72) 94 Nasal Cannula 3.00 10/13/21 11:16 32 Physical Exam General: Alert. No acute distress. He is wearing oxygen by nasal cannula. Eye: No xanthelasma. HENT: Normocephalic. Neck: Jugular venous pressure does not appear elevated. Respiratory: Lungs are clear to auscultation but decreased breath sounds at the bases bilaterally. Respirations are non-labored. Breath sounds are equal. Symmetrical chest wall expansion. Cardiovascular: Normal rate. Regular rhythm. No murmur. No gallop. 2+ bilateral pretibial edema. Gastrointestinal: Soft. Normal bowel sounds. Skin: Warm. Dry. Neurologic: Alert and oriented to person, place, time. Cranial nerves 3-11 grossly intact. Psychiatric: Cooperative. Appropriate mood & affect. Labs Laboratory Tests Test 10/16/21 10:57 10/16/21 15:50 10/16/21 20:18 10/17/21 05:39 Range/Units Glucometer 189 H 132 H 106 82 70-110 MG/DL Test 10/17/21 05:55 Range/Units White Blood Count 28.3 H 4.3-11.0 10^3/uL Red Blood Count 2.91 L 4.30-5.52 10^6/uL Hemoglobin 8.0 L 13.3-17.7 g/dL Hematocrit 26 L 40-54 % Mean Corpuscular Volume 88 80-99 fL Mean Corpuscular Hemoglobin 28 25-34 pg Mean Corpuscular Hemoglobin Concent 31 L 32-36 g/dL Red Cell Distribution Width 16.5 H 10.0-14.5 % Platelet Count 621 H 130-400 10^3/uL Mean Platelet Volume 9.7 9.0-12.2 fL Immature Granulocyte % (Auto) 3 % Neutrophils (%) (Auto) 87 H 42-75 % Lymphocytes (%) (Auto) 4 L 12-44 % Monocytes (%) (Auto) 5 0-12 % Eosinophils (%) (Auto) 0 0-10 % Basophils (%) (Auto) 0 0-10 % Neutrophils # (Auto) 24.7 H 1.8-7.8 10^3/uL Lymphocytes # (Auto) 1.1 1.0-4.0 10^3/uL Monocytes # (Auto) 1.5 H 0.0-1.0 10^3/uL Eosinophils # (Auto) 0.0 0.0-0.3 10^3/uL Basophils # (Auto) 0.1 0.0-0.1 10^3/uL Immature Granulocyte # (Auto) 0.9 H 0.0-0.1 10^3/uL Sodium Level 135 135-145 MMOL/L Potassium Level 4.0 3.6-5.0 MMOL/L Chloride Level 103 98-107 MMOL/L Carbon Dioxide Level 24 21-32 MMOL/L Anion Gap 8 5-14 MMOL/L Blood Urea Nitrogen 29 H 7-18 MG/DL Creatinine 0.92 0.60-1.30 MG/DL Estimat Glomerular Filtration Rate 79 BUN/Creatinine Ratio 32 Glucose Level 87 70-105 MG/DL Calcium Level 7.6 L 8.5-10.1 MG/DL Corrected Calcium 8.6 8.5-10.1 MG/DL Total Bilirubin 0.4 0.1-1.0 MG/DL Aspartate Amino Transf (AST/SGOT) 27 5-34 U/L Alanine Aminotransferase (ALT/SGPT) 47 0-55 U/L Alkaline Phosphatase 67 40-136 U/L Total Protein 4.9 L 6.4-8.2 GM/DL Albumin 2.7 L 3.2-4.5 GM/DL Diagnosis/Problems Diagnosis/Problems (1) Acute heart failure with preserved ejection fraction (HFpEF) Assessment & Plan: He probably does have some volume overload, possibly in part related to volume resuscitation when he was first admitted to the hospital. I started him on intravenous diuretic on 10/15. His chest x-ray from 10/16 still shows bilateral pleural effusions. I will increase the dose of diuretic to twice daily as of today. We will need to watch his renal function closely. (2) Paroxysmal atrial fibrillation Status: Acute Assessment & Plan: He initially was having sinus tachycardia and multifocal atrial tachycardia but towards the end of his acute hospitalization, he may have had at least a few episodes of atrial fibrillation. I placed the patient on rivaroxaban for stroke prophylaxis. He is on diltiazem for rate control. He seems to be remaining in sinus rhythm since being transferred to inpatient rehab. I discontinued telemetry last week. This may have been brought on by his acute, noncardiac illness when he was initially admitted. I may consider an event monitor after discharge. I would plan to arrange this through my office. (3) Primary hypertension Status: Chronic Assessment & Plan: Blood pressures are reasonably controlled with the current dose of diltiazem which he is on due to atrial fibrillation. (4) Multifocal atrial tachycardia Status: Acute Assessment & Plan: As above, he was predominantly having multifocal atrial tachycardia. Now he is back in sinus rhythm. I recommend he continue on diltiazem. (5) Mixed hyperlipidemia Status: Chronic Assessment & Plan: Continue atorvastatin. (6) Acute kidney injury Status: Acute Assessment & Plan: His renal function now seems to have stabilized. We will need to monitor this closely with intravenous diuretic. SHERRI CHO JR, MD Oct 17, 2021 09:12
[2021-10-17] MEDS: TAMSULOSIN 0.4 MG (FLOMAX) CAP PO SCH ×2 (09:13→21:04)
[2021-10-17] MEDS: SENNOSIDES 8.6 MG (SENOKOT) TAB PO SCH ×2 (09:13→21:12)
[2021-10-17] MEDS: PANTOPRAZOLE 40 MG (PROTONIX) TAB PO SCH ×2 (09:14→21:04)
[2021-10-17] MEDS: LORATADINE (CLARITIN) 10 MG TAB PO SCH (09:14)
[2021-10-17] MEDS: SENNA W/DOCUSATE (SENOKOT S) TABLET PO SCH ×2 (09:14→21:12)
[2021-10-17] MEDS: DOCUSATE SODIUM 100 MG (COLACE) CAP PO SCH ×2 (09:14→21:11)
[2021-10-17] MEDS: CAL. POLYCARBOPHIL 625 MG (FIBERCON) TAB PO SCH (09:14)
[2021-10-17] MEDS: polyethylene glycoL POWDER 17 GM (MIRALAX) PACK PO SCH ×2 (09:17→21:11)
[2021-10-17] MEDS ORDERED: LIDOCAINE UROJET 2% GEL 10 ML PKG ONE ×3 (09:31→23:00)
--- NOTE | 2021-10-17 10:58 | Occupational Ther Daily Note ---
OT Current Status-Daily Note Subjective Pt reports significant fatigue this date, limited motivation to perform adls Appearance Left sitting in recliner, all needs within reach, respiratory therapy in room. Mental Status/Objective Patient Orientation: Person, Place, Situation Attachments: IV, Oxygen, Telemetry ADL-Treatment Therapy Code Descriptions/Definitions Functional [place] Measure: 0=Not Assessed/NA 4=Minimal Assistance 1=Total Assistance 5=Supervision or Setup 2=Maximal Assistance 6=Modified [place] 3=Moderate Assistance 7=Complete IndependenceSCALE: Activities may be completed with or without assistive devices. 2-Vgekxfymgn-mucklvk completes the activity by him/herself with no assistance from a helper. 5-Set-up or Clean-up Assistance-helper sets up or cleans up; patient completes activity. [place] assists only prior to or following the activity. 4-Supervision or Touching Assistance-helper provides verbal cues and/or touching/steadying and/or contact guard assistance as patient completes activity. Assistance may be provided throughout the activity or intermittently. 3-Partial/Moderate Assistance-helper does LESS THAN HALF the effort. [place] lifts, holds or supports trunk or limbs, but provides less than half the effort. 2-Substantial/Maximal Assistance-helper does MORE THAN HALF the effort. [place] lifts or holds trunk or limbs and provides more than half the effort. 2-Ctzvtlbjb-ogfkmh does ALL the effort. Patient does none of the effort to complete the activity. Or, the assistance of 2 or more helpers is required for the patient to complete the activity. If activity was not attempted, code reason: 7-Patient Refused. 9-Not Applicable-not attempted and the patient did not perform the activity before the current illness, exacerbation or injury. 10-Not Attempted due to Environmental Limitations-(lack of equipment, weather restraints, etc.). 88-Not Attempted due to Medical Conditions or Safety Concerns. Eating (QC): 6 On/Off Footwear: 2 Toileting Hygiene (QC): 3 Toilet Transfer (QC): 4 Pt reports significant fatigue this am. He verbalizes that he is still having trouble urinating and that the nurse just received 500cc after being straight cathed. Pt continues to requests to defer shower as he does not think he will be able to tolerate at this time. Pt also declined dressing this date, appears to progressing backwards. Grooming tasks performed seated in recliner with set up. Other Treatment Pt's interests (cards) drove selection of activity. Goal to increase standing endurance, balance, breathing techniques, and pulmonary function needed for adls and transfers. After instruction of novel game, pt still required min reminders for strategic game place and recall of rules. He stood multiple times throughout activity but longest standing bout was ~2 minutes. As fatigue worsens, pt's legs begin to tremble and shake. No LOB when standing. Pt does require very lengthy seated rest breaks throughout activity. Education OT Patient Education: Correct positioning, Energy conservation, Modified ADL techniques, Purpose of tx/functional activities, Rehab process, Transfer techniques Teaching Recipient: Patient Teaching Methods: Discussion Response to Teaching: Verbalize Understanding, Reinforcement Needed OT Short Term Goals Short Term Goals Time Frame: Oct 19, 2021 Eatin Oral hygiene: 5 Toileting hygiene: 4 Shower/bathe self: 4 Upper body dressin Lower body dressin Putting on/taking off footwear: 4 OT Inspector And Clerk Goals Snf Goals Time Frame: Oct 26, 2021 Eating (QC): 6 Oral Hygiene (QC): 6 Toileting Hygiene (QC): 6 Shower/Bathe Self (QC): 5 Upper Body Dressing (QC): 5 Lower Body Dressing (QC): 5 On/Off Footwear (QC): 5 1=Demonstrate adherence to instructed precautions during ADL tasks. 2=Patient will verbalize/demonstrate understanding of assistive devices/modifications for ADL. 3=Patient will improve strength/tolerance for activity to enable patient to perform ADL's. OT Education/Plan Problem List/Assessment Assessment: Decreased Activ Tolerance, Decreased UE Strength, Impaired Funct Balance, Impaired I ADL's, Impaired Self-Care Skills Discharge Recommendations Plan/Recommendations: Continue POC Treatment Plan/Plan of Care Treatment,Training & Education: Yes Patient would benefit from OT for education, treatment and training to promote independence in ADL's, mobility, safety and/or upper extremity function for ADL's. Plan of Care: ADL Retraining, Functional Mobility, Group Exercise/Act as Ind, UE Funct Exercise/Act, W/C Management Training Treatment Duration: Oct 26, 2021 Frequency: At least 5 of 7 days/Wk (IRF) Estimated Hrs Per Day: 1.5 hours per day Agreement: Yes Rehab Potential: Fair Time/GCodes Start Time: 10:00 Stop Time: 11:00 Total Time Billed (hr/min): 60 Billed Treatment Time 1 visit ADL (10 min) FA x3 (50 min) Tamiko Fox OT Oct 17, 2021 10:58
--- NOTE | 2021-10-17 14:25 | Therapy Group Daily Note ---
Therapy Daily Group Note Patient Education Topic Home Safety Exercises LE Seated Exercise, UE Exercise Session Ratio (pt:therapist): 3:1 Goal of Session: Home Safety Strategies, UE/LE Strengthing Goal Met for this Session: Yes Pt Benefit of Group: Contributions to Others, F/U Use of Strategies @Home, Increased Functional Safety, Increased Functional Strength, Improved Cognition, Recognition of Peers, Socialization Other/Notes Pt was transported via w/c to therapy gym for OT/PT group. Group consisted of introductions (name, place living, random questions), socialization, B UE/LE seated exercises and educational topic of home safety. Pt introduced self appropriately and actively listened to peers. Pt able to complete B UE/LE seated exercises well with modifications when needed. Pt able to answer questions about home safety after education on topic. After group, pt sitting in recliner with call light/phone in reach. All needs met in room. Start Time: 13:00 Stop Time: 14:00 Total Billed Treatment Time: 60 Total Billed Treatment 1-HERNANDEZ MOHAN Oct 17, 2021 14:25
[2021-10-17] MEDS: BUMETANIDE 1 MG/4 ML (BUMEX) VIAL IV SCH ×2 (14:47→20:26)
--- NOTE | 2021-10-17 15:04 | Progress Note ---
Subjective Date Seen by a Provider: Oct 17, 2021 Time Seen by a Provider: 14:00 Subjective/Events-last exam doing well. still has SOB and weakness. hb stable. no signs clinical bleed. Objective Exam Vital Signs Date Time Temp Pulse Resp B/P (MAP) Pulse Ox O2 Delivery O2 Flow Rate FiO2 10/17/21 09:00 High Flow N/C 3.00 10/17/21 07:52 36.4 91 20 110/54 (72) 94 Nasal Cannula 3.00 10/16/21 21:00 98 High Flow N/C 4.00 10/16/21 20:56 99 Nasal Cannula 4.00 10/16/21 20:54 99 Nasal Cannula 4.00 10/16/21 20:33 36.6 89 20 112/62 (79) 98 Nasal Cannula 3.50 10/16/21 18:23 94 90 Nasal Cannula 4.00 I & O 10/17/21 07:00 Intake Total 1350 ml Output Total 2875 ml Balance -1525 ml Capillary Refill : General Appearance: No Apparent Distress HEENT: PERRL/EOMI Neck: Full Range of Motion Respiratory: Chest Non Tender, Decreased Breath Sounds, Wheezing Cardiovascular: Regular Rate, Rhythm Gastrointestinal: normal bowel sounds, non tender, soft Extremity: Normal Capillary Refill Neurologic/Psychiatric: Alert, Oriented x3 Skin: Normal Color Lymphatic: No Adenopathy Results Lab Laboratory Tests 10/16/21 15:50: Glucometer 132H 10/16/21 20:18: Glucometer 106 10/17/21 05:39: Glucometer 82 10/17/21 05:55: White Blood Count 28.3H, Red Blood Count 2.91L, Hemoglobin 8.0L, Hematocrit 26L, Mean Corpuscular Volume 88, Mean Corpuscular Hemoglobin 28, Mean Corpuscular Hemoglobin Concent 31L, Red Cell Distribution Width 16.5H, Platelet Count 621H, Mean Platelet Volume 9.7, Immature Granulocyte % (Auto) 3, Neutrophils (%) (Auto) 87H, Lymphocytes (%) (Auto) 4L, Monocytes (%) (Auto) 5, Eosinophils (%) (Auto) 0, Basophils (%) (Auto) 0, Neutrophils # (Auto) 24.7H, Lymphocytes # (Auto) 1.1, Monocytes # (Auto) 1.5H, Eosinophils # (Auto) 0.0, Basophils # (Auto) 0.1, Immature Granulocyte # (Auto) 0.9H, Sodium Level 135, Potassium Level 4.0, Chloride Level 103, Carbon Dioxide Level 24, Anion Gap 8, Blood Urea Nitrogen 29H, Creatinine 0.92, Estimat Glomerular Filtration Rate 79, BUN/Creatinine Ratio 32, Glucose Level 87, Calcium Level 7.6L, Corrected Calcium 8.6, Total Bilirubin 0.4, Aspartate Amino Transf (AST/SGOT) 27, Alanine Aminotransferase (ALT/SGPT) 47, Alkaline Phosphatase 67, Total Protein 4.9L, Albumin 2.7L 10/17/21 11:49: Glucometer 115H Microbiology 10/15/21 C. difficile DNA Amplification - Final, Complete Assessment/Plan Assessment/Plan Assess & Plan/Chief Complaint anemia with bilat pnuemonia. prep and EGD and colonoscopy friday(10/19). EDVIN MARROQUIN MD Oct 17, 2021 15:04
[2021-10-17 20:13] VITALS: BP 108/56
[2021-10-17] MEDS: MONTELUKAST 10 MG (SINGULAIR) TAB PO SCH (21:04)
[2021-10-17] MEDS ORDERED: LIDOCAINE UROJET 2% GEL 10 ML PKG TOP ONE (23:00)
[2021-10-18] MEDS: inSUlin ASPART (NovoLOG) 1 UNIT/0.01 ML (CHARGE PER UNIT) SC SCH ×4 (05:56→21:32)
[2021-10-18 06:00] LABS: BASOPHILS % (AUTO) 0 % (0-10); EOSINOPHILS % (AUTO) 0 % (0-10); HEMATOCRIT 25 % (40-54); HEMOGLOBIN 8.1 g/dL (13.3-17.7); LYMPHOCYTES # (AUTO) 1.4 10^3/uL (1.0-4.0); LYMPHOCYTES % (AUTO) 6 % (12-44); MEAN CORPUSCULAR HEMOGLOBIN 29 pg (25-34); MEAN CORPUSCULAR HGB CONC 32 g/dL (32-36); MEAN CORPUSCULAR VOLUME 89 fL (80-99); MEAN PLATELET VOLUME 9.7 fL (9.0-12.2); MONOCYTES # (AUTO) 1.8 10^3/uL (0.0-1.0); MONOCYTES % (AUTO) 8 % (0-12); NEUTROPHILS # (AUTO) 19.5 10^3/uL (1.8-7.8); NEUTROPHILS % (AUTO) 83 % (42-75); PLATELET COUNT 593 10^3/uL (130-400); WHITE BLOOD COUNT 23.4 10^3/uL (4.3-11.0)
[2021-10-18] MEDS: CATHETER FLUSH 10 ML SYR IV SCH ×3 (06:12→21:13)
--- NOTE | 2021-10-18 06:12 | PM&R Progress Note ---
Subjective HPI/CC On Admission Date Seen by Provider: Oct 18, 2021 Time Seen by Provider: 10:00 Subjective/Events-last exam 10/18/21: EGD/Colonoscopy will be canceled Straight Catheter will be addressed by Dr. Izaguirre D/C isolation for C-Diff Vanc PO continues for now Bumex given daily Respiratory status is tenuous 10/17/21: Pt is doing pretty well C-diff was negative but I think the elevated white count and loose stools are still at risk for C-diff. Maintain Vancomycin PO Venofer iron infusions maintained EGD and colonoscopy for Friday Improved dyspnea with Bumex 10/16/21: Pt is very complicated Dr. Izaguirre will see him ABG could not be obtained Chest x-ray reveals the infiltrate pulmonary edema Remains on 3.5L of O2 Xarelto is on hold IV iron infusions maintained IV Bumex ordered by Cardiology 10/15/21: Pt is doing about the same Pt had a formed BM Can't do c.diff on formed bowels Dr. Ford to see for volume overload White count down to 30,000 Holding anticoagulation due to hemoccult positive stools and anemia Hemoglobin 8.1 10/14/2021: Patient feels better Elevated white count he is suspicious Dark stool was Hemoccult and it is positive Consulted Dr. MARROQUIN and ordered proton pump inhibitor twice daily and Carafate and holding Xarelto C. difficile will be ordered due to significantly elevated white blood cell count but no fever or any other findings of infectious source Check meds labs Very complex issues 10/13/2021: Patient doing better Oxygen down to 3 L Gave Lasix 20 mg IV after I conferred with Dr. Colon Edema noted Labs revealed white count elevated due to steroid effect Antibiotics still on board LIZZETTE gonzalez maintained Had BM yesterday Wheezing noted but no coarseness Urinary retention management 10/12/21: Pt dramatically improved Dr. Ford is monitoring Accapella is being used 4L of of O2 now Voiding well since Catheter removed Took a shower today he feels much better 10/11/21: Pt doing a lot better today Bowels are moving Catheter was discontinued Blood pressure is doing okay White count 20,000 from steroid Hemoglobin is 9.3 Remains on 4-6L of O2 and does increase with exertion Overall, much improved Review of Systems General: Fatigue, Malaise Objective Exam Vital Signs Vital Signs Date Time Temp Pulse Resp B/P (MAP) Pulse Ox O2 Delivery O2 Flow Rate FiO2 10/18/21 21:05 98 High Flow N/C 3.00 10/18/21 20:37 36.4 88 22 153/70 (97) 10/13/21 11:16 32 Capillary Refill : General Appearance: WD/WN, Anxious, Chronically ill, Mild Distress HEENT: PERRL/EOMI, Normal ENT Inspection, Pharynx Normal Neck: Full Range of Motion, Normal Inspection, Non Tender, Supple, Carotid Bruit Respiratory: Chest Non Tender, No Respiratory Distress, Accessory Muscle Use, Decreased Breath Sounds, Rales, Wheezing Cardiovascular: Regular Rate, Rhythm, No Edema, No Gallop, No JVD, No Murmur, Normal Peripheral Pulses Gastrointestinal: Normal Bowel Sounds, No Organomegaly, No Pulsatile Mass, Non Tender, Soft Back: Normal Inspection, No CVA Tenderness, No Vertebral Tenderness Extremity: Normal Capillary Refill, Normal Inspection, Normal Range of Motion, Non Tender, No Calf Tenderness, No Pedal Edema Neurologic/Psychiatric: Alert, Oriented x3, No Motor/Sensory Deficits, Normal Mood/Affect Skin: Normal Color, Warm/Dry Lymphatic: No Adenopathy Results/Procedures Lab Laboratory Tests 10/18/21 05:40 Patient resulted labs reviewed. FIM Transfers Therapy Code Descriptions/Definitions Functional [place] Measure: 0=Not Assessed/NA 4=Minimal Assistance 1=Total Assistance 5=Supervision or Setup 2=Maximal Assistance 6=Modified [place] 3=Moderate Assistance 7=Complete IndependenceSCALE: Activities may be completed with or without assistive devices. 4-Tndbhvcokj-brcsxgs completes the activity by him/herself with no assistance from a helper. 5-Set-up or Clean-up Assistance-helper sets up or cleans up; patient completes activity. [place] assists only prior to or following the activity. 4-Supervision or Touching Assistance-helper provides verbal cues and/or touching/steadying and/or contact guard assistance as patient completes activity. Assistance may be provided throughout the activity or intermittently. 3-Partial/Moderate Assistance-helper does LESS THAN HALF the effort. [place] lifts, holds or supports trunk or limbs, but provides less than half the effort. 2-Substantial/Maximal Assistance-helper does MORE THAN HALF the effort. [place] lifts or holds trunk or limbs and provides more than half the effort. 1-Nwvgmrmhc-xgxaac does ALL the effort. Patient does none of the effort to complete the activity. Or, the assistance of 2 or more helpers is required for the patient to complete the activity. If activity was not attempted, code reason: 7-Patient Refused. 9-Not Applicable-not attempted and the patient did not perform the activity before the current illness, exacerbation or injury. 10-Not Attempted due to Environmental Limitations-(lack of equipment, weather restraints, etc.). 88-Not Attempted due to Medical Conditions or Safety Concerns. Roll Left to Right (QC): 6 Sit to Lying (QC): 4 Sit to Stand (QC): 5 Chair/Nuz-pe-Cszrg Xfer(QC): 5 Car Transfer (QC): 3 Gait Training Does the Patient Walk?: Yes Distance: 15' Walk 10 feet (QC): 5 Walk 50 ft with 2 Turns(QC): 4 Walk 150 ft (QC): 88 Walking 10ft/uneven surface-QC: 88 Gait Persons Needed: 1 Gait Assistive Device: FWW Wheelchair Training Does the Pt Use a Wheelchair?: Yes Wheel 50 ft with 2 turns (QC): 1 Wheel 150 ft (QC): 1 Type of Wheelchair: Manual Stair Training 1 Step (curb) (QC): 88 4 Steps (QC): 88 12 Steps (QC): 88 Balance Picking up an Object (QC): 88 ADL-Treatment Eating (QC): 6 Oral Hygiene (QC): 6 Shower/Bathe Self (QC): 4 Upper Body Dressing (QC): 5 Lower Body Dressing (QC): 3 On/Off Footwear (QC): 2 Toileting Hygiene (QC): 3 Toilet Transfer (QC): 4 Assessment/Plan Assessment and Plan Assess & Plan/Chief Complaint Assessment: Debility New onset AF w/recent RVR Active wheezing AECOPD Hypoxia PNA s/p septic shock CHAZ HTN Hypoxemia Urinary retention 10/13/21 Volume overload giving Lasix per Dr Ford Dark stool Hemoccult + 10/14/[address] MARROQUIN and change PPI to twice daily and added Carafate and holding Xarelto Severely elevated white count without source checking C. difficile Presumed C diff colitis placed on Vanc PO but test negative? Plan: Monitor closely IV steroids IV abx DC cath tomorrow Supportive care 10/11/21: Monitor closely Cath DC 10/12/21: Doing extremely well Monitor closely 10/13/21: Lasix 20mgIV x [address] Colon Urinary retention management 10/14/2021: Check C. difficile Hold Xarelto PPI and Carafate 10/15/21: Appreciate Dr Ford Consult Dr Izaguirre 10/16/21: Vanc PO Monitor closely Complex case 10/17/21: Vanc PO C diff negative but still suspicious 10/18/21: Monitor wbc Decrease steroids Diuresis (1) Acute heart failure with preserved ejection fraction (HFpEF) Assessment & Plan: He probably does have some volume overload, possibly in part related to volume resuscitation when he was first admitted to the hospital. I started him on intravenous diuretic on 10/15. His chest x-ray from 10/16 still shows bilateral pleural effusions. I will increase the dose of diuretic to twice daily as of today. We will need to watch his renal function closely. (2) Paroxysmal atrial fibrillation Status: Acute Assessment & Plan: He initially was having sinus tachycardia and multifocal atrial tachycardia but towards the end of his acute hospitalization, he may have had at least a few episodes of atrial fibrillation. I placed the patient on rivaroxaban for stroke prophylaxis. He is on diltiazem for rate control. He seems to be remaining in sinus rhythm since being transferred to inpatient rehab. I discontinued telemetry last week. This may have been brought on by his acute, noncardiac illness when he was initially admitted. I may consider an event monitor after discharge. I would plan to arrange this through my office. (3) Primary hypertension Status: Chronic Assessment & Plan: Blood pressures are reasonably controlled with the current dose of diltiazem which he is on due to atrial fibrillation. (4) Multifocal atrial tachycardia Status: Acute Assessment & Plan: As above, he was predominantly having multifocal atrial tachycardia. Now he is back in sinus rhythm. I recommend he continue on diltiazem. (5) Mixed hyperlipidemia Status: Chronic Assessment & Plan: Continue atorvastatin. (6) Acute kidney injury Status: Acute Assessment & Plan: His renal function now seems to have stabilized. We will need to monitor this closely with intravenous diuretic. FRANCISCO BHAKTA DO Oct 18, 2021 06:11
[2021-10-18] MEDS: predniSONE 20 MG TAB PO SCH (06:13)
[2021-10-18] MEDS: SUCRALFATE 1 GM (CARAFATE) TAB PO SCH ×4 (06:13→21:04)
[2021-10-18] MEDS: LACTOBACILLUS Acidoph/Bulgar 1 GM (LACTINEX) PACKET PO SCH ×4 (06:13→21:05)
[2021-10-18] MEDS: VANCOMYCIN 125 MG CAPSULE PO SCH ×3 (06:13→17:24)
[2021-10-18 06:22] LABS: ALBUMIN 2.7 GM/DL (3.2-4.5); BILIRUBIN,TOTAL 0.3 MG/DL (0.1-1.0); CALCIUM 7.7 MG/DL (8.5-10.1); CREATININE SERUM 1.09 MG/DL (0.60-1.30); POTASSIUM 4.3 MMOL/L (3.6-5.0); TOTAL PROTEIN 4.7 GM/DL (6.4-8.2)
[2021-10-18] MEDS: BUMETANIDE 1 MG/4 ML (BUMEX) VIAL IV SCH ×2 (06:53→16:43)
[2021-10-18 07:14] VITALS: BP 123/59
[2021-10-18] MEDS: CAL. POLYCARBOPHIL 625 MG (FIBERCON) TAB PO SCH (07:44)
[2021-10-18] MEDS: DOCUSATE SODIUM 100 MG (COLACE) CAP PO SCH ×2 (07:44→21:05)
[2021-10-18] MEDS: LORATADINE (CLARITIN) 10 MG TAB PO SCH (07:44)
[2021-10-18] MEDS: SENNOSIDES 8.6 MG (SENOKOT) TAB PO SCH ×2 (07:44→21:04)
[2021-10-18] MEDS: IRON SUCROSE 200 MG/10 ML (VENOFER) VIAL IV SCH (07:45)
[2021-10-18] MEDS: TAMSULOSIN 0.4 MG (FLOMAX) CAP PO SCH ×2 (07:45→21:05)
[2021-10-18] MEDS: PANTOPRAZOLE 40 MG (PROTONIX) TAB PO SCH ×2 (07:46→21:05)
[2021-10-18] MEDS: polyethylene glycoL POWDER 17 GM (MIRALAX) PACK PO SCH ×2 (08:42→21:03)
[2021-10-18] MEDS: SENNA W/DOCUSATE (SENOKOT S) TABLET PO SCH ×2 (08:45→21:04)
--- NOTE | 2021-10-18 09:02 | Occupational Ther Daily Note ---
OT Current Status-Daily Note Subjective Pt denies pain, agreeable to treatment. Appearance Pt returned to sitting in recliner, all needs within reach. Mental Status/Objective Patient Orientation: Person, Place, Situation Attachments: IV, Oxygen ADL-Treatment Therapy Code Descriptions/Definitions Functional [place] Measure: 0=Not Assessed/NA 4=Minimal Assistance 1=Total Assistance 5=Supervision or Setup 2=Maximal Assistance 6=Modified [place] 3=Moderate Assistance 7=Complete IndependenceSCALE: Activities may be completed with or without assistive devices. 4-Dturxyteuq-mbpfbuf completes the activity by him/herself with no assistance from a helper. 5-Set-up or Clean-up Assistance-helper sets up or cleans up; patient completes activity. [place] assists only prior to or following the activity. 4-Supervision or Touching Assistance-helper provides verbal cues and/or touching/steadying and/or contact guard assistance as patient completes activity. Assistance may be provided throughout the activity or intermittently. 3-Partial/Moderate Assistance-helper does LESS THAN HALF the effort. [place] lifts, holds or supports trunk or limbs, but provides less than half the effort. 2-Substantial/Maximal Assistance-helper does MORE THAN HALF the effort. [place] lifts or holds trunk or limbs and provides more than half the effort. 8-Kjekaihqy-dzalap does ALL the effort. Patient does none of the effort to complete the activity. Or, the assistance of 2 or more helpers is required for the patient to complete the activity. If activity was not attempted, code reason: 7-Patient Refused. 9-Not Applicable-not attempted and the patient did not perform the activity before the current illness, exacerbation or injury. 10-Not Attempted due to Environmental Limitations-(lack of equipment, weather restraints, etc.). 88-Not Attempted due to Medical Conditions or Safety Concerns. Shower/Bathe Self (QC): 3 Upper Body Dressing (QC): 4 Lower Body Dressing (QC): 3 On/Off Footwear: 2 Toileting Hygiene (QC): 4 Toilet Transfer (QC): 4 Shower performed; majority completed in sitting. Pt stood only briefly to wash diana area and buttocks. Min a needed to wash buttocks secondary to increased fatigue and labored breathing as shower continued. No lob in standing. Unilateral UE support required. Pt declined washing LE's and instead just let the soapy water run down legs. Pt often attempting to john through task due to increased SOB. Education provided on energy conservation. Dressing activities performed seated on shower bench. Assist required to thread BLE's into brief secondary to inability to reach feet or lift high enough off floor (due to extra weight from edema). Pt able to thread BLE's into pants with extra effort. Pt may benefit from instruction on AE for LB dressing/bathing. He was able to stand with SBA and plant puller hips without assist. LE's do begin to tremble with prolong standing. OT donned tylor hose and socks. Several rest breaks needed during adls secondary to labored breathing and fatigue. O2 spot checked throughout session and remained >93%. Pt on 4L NC. Education OT Patient Education: Correct positioning, Energy conservation, Modified ADL techniques, Progress toward Goal/Update tx plan, Purpose of tx/functional activities, Rehab process, Safety issues, Transfer techniques, Use of adapted equipment Teaching Recipient: Patient Teaching Methods: Demonstration, Discussion Response to Teaching: Verbalize Understanding, Reinforcement Needed OT Short Term Goals Short Term Goals Time Frame: Oct 19, 2021 Eatin Oral hygiene: 5 Toileting hygiene: 4 Shower/bathe self: 4 Upper body dressin Lower body dressin Putting on/taking off footwear: 4 OT Classifier Tender Goals Classifier Tender Goals Time Frame: Oct 26, 2021 Eating (QC): 6 Oral Hygiene (QC): 6 Toileting Hygiene (QC): 6 Shower/Bathe Self (QC): 5 Upper Body Dressing (QC): 5 Lower Body Dressing (QC): 5 On/Off Footwear (QC): 5 1=Demonstrate adherence to instructed precautions during ADL tasks. 2=Patient will verbalize/demonstrate understanding of assistive devices/modifications for ADL. 3=Patient will improve strength/tolerance for activity to enable patient to perform ADL's. OT Education/Plan Problem List/Assessment Assessment: Decreased Activ Tolerance, Decreased UE Strength, Edema, Impaired Funct Balance, Impaired I ADL's, Impaired Self-Care Skills Discharge Recommendations Plan/Recommendations: Continue POC Treatment Plan/Plan of Care Treatment,Training & Education: Yes Patient would benefit from OT for education, treatment and training to promote independence in ADL's, mobility, safety and/or upper extremity function for ADL's. Plan of Care: ADL Retraining, Functional Mobility, Group Exercise/Act as Ind, UE Funct Exercise/Act, W/C Management Training Treatment Duration: Oct 26, 2021 Frequency: At least 5 of 7 days/Wk (IRF) Estimated Hrs Per Day: 1.5 hours per day Agreement: Yes Rehab Potential: Fair Time/GCodes Start Time: 07:35 Stop Time: 08:50 Total Time Billed (hr/min): 75 Billed Treatment Time 1 visit ADL x5 Tamiko Fox OT Oct 18, 2021 09:02
[2021-10-18] MEDS: RT-ALBUTEROL/IPRATROPIUM 3 ML (DUONEB) VIAL INH SCH ×3 (09:45→18:54)
[2021-10-18] MEDS: RT-BUDESONIDE NEBS 0.5 MG/2ML (PULMICORT) AMP INH SCH (09:45)
[2021-10-18] MEDS ORDERED: MAGNESIUM CITRATE 300 ML BTL PO ONE (11:00)
--- NOTE | 2021-10-18 11:10 | Occupational Ther Daily Note ---
OT Current Status-Daily Note Subjective Denies pain. Co-treat with PT due to impaired activity tolerance/endurance, pulmonary function, and need of 2 skilled clinicians to progress indep with mobility and adls. Appearance Left sitting in recliner with physical therapy present Mental Status/Objective Patient Orientation: Person, Place, Situation Attachments: IV, Oxygen ADL-Treatment Therapy Code Descriptions/Definitions Functional [place] Measure: 0=Not Assessed/NA 4=Minimal Assistance 1=Total Assistance 5=Supervision or Setup 2=Maximal Assistance 6=Modified [place] 3=Moderate Assistance 7=Complete IndependenceSCALE: Activities may be completed with or without assistive devices. 1-Jkwzmkajsb-ciwgcfo completes the activity by him/herself with no assistance from a helper. 5-Set-up or Clean-up Assistance-helper sets up or cleans up; patient completes activity. [place] assists only prior to or following the activity. 4-Supervision or Touching Assistance-helper provides verbal cues and/or touching/steadying and/or contact guard assistance as patient completes activity. Assistance may be provided throughout the activity or intermittently. 3-Partial/Moderate Assistance-helper does LESS THAN HALF the effort. [place] lifts, holds or supports trunk or limbs, but provides less than half the effort. 2-Substantial/Maximal Assistance-helper does MORE THAN HALF the effort. [place] lifts or holds trunk or limbs and provides more than half the effort. 1-Cpvdcbubv-pmwuoc does ALL the effort. Patient does none of the effort to complete the activity. Or, the assistance of 2 or more helpers is required for the patient to complete the activity. If activity was not attempted, code reason: 7-Patient Refused. 9-Not Applicable-not attempted and the patient did not perform the activity before the current illness, exacerbation or injury. 10-Not Attempted due to Environmental Limitations-(lack of equipment, weather restraints, etc.). 88-Not Attempted due to Medical Conditions or Safety Concerns. Other Treatment Pt participated in card game learned previous date. He was able to recall majority of rules only needing min reminders. Focus of activity to promote increased standing tolerance, endurance, balance, pulmonary function, UE use/strength, and memory. Pt stood x2, longest standing bout of 3:29. Significantly long rest breaks needed after each stand as pt exhibits SOA and labored breathing. O2 continues to read >92% at 3L. Cues for PLB and improving ARMIN in standing. CGA for safety. Education OT Patient Education: Correct positioning, Modified ADL techniques, Progress toward Goal/Update tx plan, Purpose of tx/functional activities, Rehab process, Safety issues Teaching Recipient: Patient Teaching Methods: Discussion Response to Teaching: Verbalize Understanding, Reinforcement Needed OT Short Term Goals Short Term Goals Time Frame: Oct 19, 2021 Eatin Oral hygiene: 5 Toileting hygiene: 4 Shower/bathe self: 4 Upper body dressin Lower body dressin Putting on/taking off footwear: 4 OT Hotel Lobby Concierge Goals [facility] Goals Time Frame: Oct 26, 2021 Eating (QC): 6 Oral Hygiene (QC): 6 Toileting Hygiene (QC): 6 Shower/Bathe Self (QC): 5 Upper Body Dressing (QC): 5 Lower Body Dressing (QC): 5 On/Off Footwear (QC): 5 1=Demonstrate adherence to instructed precautions during ADL tasks. 2=Patient will verbalize/demonstrate understanding of assistive devices/modifications for ADL. 3=Patient will improve strength/tolerance for activity to enable patient to perform ADL's. OT Education/Plan Problem List/Assessment Assessment: Decreased Activ Tolerance, Decreased UE Strength, Impaired Funct Balance, Impaired I ADL's, Impaired Self-Care Skills Discharge Recommendations Plan/Recommendations: Continue POC Treatment Plan/Plan of Care Treatment,Training & Education: Yes Patient would benefit from OT for education, treatment and training to promote independence in ADL's, mobility, safety and/or upper extremity function for ADL's. Plan of Care: ADL Retraining, Functional Mobility, Group Exercise/Act as Ind, UE Funct Exercise/Act, W/C Management Training Treatment Duration: Oct 26, 2021 Frequency: At least 5 of 7 days/Wk (IRF) Estimated Hrs Per Day: 1.5 hours per day Agreement: Yes Rehab Potential: Fair Time/GCodes Start Time: 10:30 Stop Time: 10:50 Total Time Billed (hr/min): 20 Billed Treatment Time 1 visit Tamiko Hussein OT Oct 18, 2021 11:10
[2021-10-18] MEDS: polyethylene glycoL POWDER 17 GM (MIRALAX) PACK PO PRN (11:12)
--- NOTE | 2021-10-18 11:29 | Physical Therapy Daily Note ---
PT Daily Note-Current Subjective Pt is sitting in recliner upon arrival. Pt agrees to to short PT/OT co-treat. Mental Status Patient Orientation: Person, Place, Situation Attachments: Oxygen Transfers SCALE: Activities may be completed with or without assistive devices. 1-Eymaaiaysa-zhflomo completes the activity by him/herself with no assistance from a helper. 5-Set-up or Clean-up Assistance-helper sets up or cleans up; patient completes activity. [place] assists only prior to or following the activity. 4-Supervision or Touching Assistance-helper provides verbal cues and/or touching/steadying and/or contact guard assistance as patient completes activity. Assistance may be provided throughout the activity or intermittently. 3-Partial/Moderate Assistance-helper does LESS THAN HALF the effort. [place] lifts, holds or supports trunk or limbs, but provides less than half the effort. 2-Substantial/Maximal Assistance-helper does MORE THAN HALF the effort. [place] lifts or holds trunk or limbs and provides more than half the effort. 0-Mvsoiytix-yxwqob does ALL the effort. Patient does none of the effort to complete the activity. Or, the assistance of 2 or more helpers is required for the patient to complete the activity. If activity was not attempted, code reason: 7-Patient Refused. 9-Not Applicable-not attempted and the patient did not perform the activity before the current illness, exacerbation or injury. 10-Not Attempted due to Environmental Limitations-(lack of equipment, weather restraints, etc.). 88-Not Attempted due to Medical Conditions or Safety Concerns. Sit to Stand (QC): 5 Weight Bearing Right Lower Extremity: Right Weight Bearing/Tolerated Left Lower Extremity: Left Weight Bearing/Tolerated Exercises Supine Ex: Ankle pumps, Quad Set, Glut sets, Straight leg raise, Hip abd/add Supine Reps: 15 Treatments ([id number]) Co-treat with PT due to impaired activity tolerance/endurance, pulmonary function, and need of 2 skilled clinicians to progress indep with mobility and adls. Pt participated in card game learned previous date. He was able to recall majority of rules only needing min reminders. Focus of activity to promote increased standing tolerance, endurance, balance, pulmonary function, UE use/strength, and memory. Pt stood x2, longest standing bout of 3:29. Significantly long rest breaks needed after each stand as pt exhibits SOA and labored breathing. O2 continues to read >92% at 3L. Cues for PLB and improving ARMIN in standing. CGA for safety. ([id number]) Pt completes Supine Ex although takes extended RB frequently during tx. Dr Chase sees pt during tx and advises will postpone Bowel prep for this afternoon & EGD & Colonoscopy for tomorrow until pt feels better. Pt asks for med for Bowels as he feels bloated and SOA. O2 levels stay about 90% but feels SOA with any activity including eating. Pt rests at end of tx w/all needs met, call light in hand. Assessment Current Status: Poor Progress Pt tries during tx but with any exertion, pt reports SOA and extended recovery time needed. PT Short Term Goals Short Term Goals Time Frame: Oct 17, 2021 Roll Left & Right: 6 Sit to lyin Lying to sitting on side of be: 4 Sit to stand: 4 (SBA) Chair/lhz-ij-jydlw transfer: 4 (SBA) Walk 10 feet: 4 Walk 50 feet with two turns: 4 Walk 150 feet: 4 PT [facility] Goals Facility Worker Goals PT [facility] Goals Time Frame: Oct 31, 2021 Roll Left & Right (QC): 6 Sit to Lying (QC): 6 Lying-Sitting on Side/Bed(QC): 6 Sit to Stand (QC): 6 Chair/Xxf-oz-Cqtou Xfer(QC): 6 Toilet Transfer (QC): 6 Car Transfer (QC): 3 Does the Patient Walk: Yes Walk 10 feet (QC): 6 Walk 50ft with 2 Turns (QC): 6 Walk 150 ft (QC): 6 Walking 10ft on Uneven Surface: 4 1 Step (curb) (QC): 4 4 Steps (QC): 4 12 Steps (QC): 88 Picking up an Object (QC): 4 Wheel 50 feet with 2 turns (QC: 9 Wheel 150 feet: 9 PT Plan Problem List Problem List: Activity Tolerance, Functional Strength Treatment/Plan Treatment Plan: Continue Plan of Care Treatment Plan: Bed Mobility, Education, Functional Activity Tatiana, Functional Strength, Group Therapy, Gait, Safety, Therapeutic Exercise, Transfers Treatment Duration: Oct 31, 2021 Frequency: At least 5 of 7 days/Wk (IRF) Estimated Hrs Per Day: 1.5 hours per day Patient and/or Family Agrees t: Yes Time/GCodes Time In: 1030 Time Out: 1130 Total Billed Treatment Time: 60 Total Billed Treatment 1, FA x2 (30m) & EX x2 (30m) ANDREA MILLIGAN MATERIALS MANAGEMENT CLERK Oct 18, 2021 11:29
--- NOTE | 2021-10-18 12:43 | Progress Note - Urology ---
Progress Note-Urology Progress Notes/Assess & Plan Progress/Assessment & Plan VOID BUT STILL LARGE PVR. PLAN CYSTO AT BEDSIDE TOMORROW, FULLY EXPLAINED Final Diagnosis URINE RETENTION ATILIO WILSON MD Oct 18, 2021 12:43
--- NOTE | 2021-10-18 13:05 | Cardiology Progress Note ---
Progress Note-Cardiology Events since last exam Date Seen by Provider: Oct 18, 2021 Time Seen by Provider: 13:03 Events since last exam I am following him due to heart failure. He was supposed to have a cystoscopy and upper and lower endoscopy today but the hospitalist felt his breathing was not good enough for these procedures. On the other hand, the patient feels as though his breathing is gradually improving. His lower extremity edema has also improved but not resolved. He denies chest discomfort, palpitations, or syncope. Certain portions of this document may have been dictated utilizing voice re cognition technology. Inherent to this technology, typographical and grammatical errors may exist. As much as I am diligent to identify and correct these mistakes, some errors may remain in the document. Vitals Last set of Vitals Signs Vital Signs 10/13/21 10/18/21 10/18/21 11:16 07:14 15:51 Temp 36.3 Pulse 94 Resp 16 B/P (MAP) 123/59 (80) Pulse Ox 98 O2 Delivery Nasal Cannula O2 Flow Rate 3.00 FiO2 32 Labs Labs Laboratory Tests 10/18/21 05:40 Exam Vital Signs Vital Signs Date Time Temp Pulse Resp B/P (MAP) Pulse Ox O2 Delivery O2 Flow Rate FiO2 10/18/21 15:51 98 Nasal Cannula 3.00 10/18/21 07:14 36.3 94 16 123/59 (80) 10/13/21 11:16 32 Physical Exam General: Alert. No acute distress. He is obese. Eye: No xanthelasma. HENT: Normocephalic. Neck: Jugular venous pressure does not appear elevated. Respiratory: Lungs are clear to auscultation with decreased breath sounds at the bases bilaterally. Respirations are non-labored. Breath sounds are equal. Symmetrical chest wall expansion. Cardiovascular: Normal rate. Regular rhythm. No murmur. No gallop. 2+ bilateral pretibial edema but improved. Gastrointestinal: Soft. Normal bowel sounds. Skin: Warm. Dry. Neurologic: Alert and oriented to person, place, time. Cranial nerves 3-11 grossly intact. Psychiatric: Cooperative. Appropriate mood & affect. Labs Laboratory Tests Test 10/17/21 20:19 10/18/21 05:40 10/18/21 05:52 10/18/21 10:45 Range/Units Glucometer 111 H 82 168 H 70-110 MG/DL White Blood Count 23.4 H 4.3-11.0 10^3/uL Red Blood Count 2.84 L 4.30-5.52 10^6/uL Hemoglobin 8.1 L 13.3-17.7 g/dL Hematocrit 25 L 40-54 % Mean Corpuscular Volume 89 80-99 fL Mean Corpuscular Hemoglobin 29 25-34 pg Mean Corpuscular Hemoglobin Concent 32 32-36 g/dL Red Cell Distribution Width 16.4 H 10.0-14.5 % Platelet Count 593 H 130-400 10^3/uL Mean Platelet Volume 9.7 9.0-12.2 fL Immature Granulocyte % (Auto) 3 % Neutrophils (%) (Auto) 83 H 42-75 % Lymphocytes (%) (Auto) 6 L 12-44 % Monocytes (%) (Auto) 8 0-12 % Eosinophils (%) (Auto) 0 0-10 % Basophils (%) (Auto) 0 0-10 % Neutrophils # (Auto) 19.5 H 1.8-7.8 10^3/uL Lymphocytes # (Auto) 1.4 1.0-4.0 10^3/uL Monocytes # (Auto) 1.8 H 0.0-1.0 10^3/uL Eosinophils # (Auto) 0.0 0.0-0.3 10^3/uL Basophils # (Auto) 0.0 0.0-0.1 10^3/uL Immature Granulocyte # (Auto) 0.7 H 0.0-0.1 10^3/uL Sodium Level 135 135-145 MMOL/L Potassium Level 4.3 3.6-5.0 MMOL/L Chloride Level 101 98-107 MMOL/L Carbon Dioxide Level 26 21-32 MMOL/L Anion Gap 8 5-14 MMOL/L Blood Urea Nitrogen 26 H 7-18 MG/DL Creatinine 1.09 0.60-1.30 MG/DL Estimat Glomerular Filtration Rate 65 BUN/Creatinine Ratio 24 Glucose Level 89 70-105 MG/DL Calcium Level 7.7 L 8.5-10.1 MG/DL Corrected Calcium 8.7 8.5-10.1 MG/DL Total Bilirubin 0.3 0.1-1.0 MG/DL Aspartate Amino Transf (AST/SGOT) 28 5-34 U/L Alanine Aminotransferase (ALT/SGPT) 49 0-55 U/L Alkaline Phosphatase 79 40-136 U/L Total Protein 4.7 L 6.4-8.2 GM/DL Albumin 2.7 L 3.2-4.5 GM/DL Test 10/18/21 15:50 Range/Units Glucometer 135 H 70-110 MG/DL Diagnosis/Problems Diagnosis/Problems (1) Acute heart failure with preserved ejection fraction (HFpEF) Assessment & Plan: He probably does have some volume overload, possibly in part related to volume resuscitation when he was first admitted to the hospital. I started him on intravenous diuretic on 10/15. His chest x-ray from 10/16 still shows bilateral pleural effusions. I increased his IV diuretic. His symptoms are slowly improving. We will need to watch his renal function closely. (2) Paroxysmal atrial fibrillation Status: Acute Assessment & Plan: He initially was having sinus tachycardia and multifocal atrial tachycardia but towards the end of his acute hospitalization, he may have had at least a few episodes of atrial fibrillation. I placed the patient on rivaroxaban for stroke prophylaxis. He is on diltiazem for rate control. He seems to be remaining in sinus rhythm since being transferred to inpatient rehab. I discontinued telemetry last week. The atrial fibrillation may have been brought on by his acute, noncardiac illness when he was initially admitted. Due to his acute anemia and heme positive stool, Xarelto is now on hold. (3) Primary hypertension Status: Chronic Assessment & Plan: Blood pressures are reasonably controlled with the current dose of diltiazem which he is on due to atrial fibrillation. (4) Multifocal atrial tachycardia Status: Acute Assessment & Plan: As above, he was predominantly having multifocal atrial tachycardia. Now he is back in sinus rhythm. I recommend he continue on diltiazem. (5) Mixed hyperlipidemia Status: Chronic Assessment & Plan: Continue atorvastatin. (6) Acute kidney injury Status: Acute Assessment & Plan: His renal function now seems to have stabilized. We will need to monitor this closely with intravenous diuretic. SHERRI CHO JR, MD Oct 18, 2021 13:05
--- NOTE | 2021-10-18 13:57 | Physical Therapy Daily Note ---
PT Daily Note-Current Subjective Pt sitting up in recliner upon arrival. Pt agrees to PT despite reporting fatigue and SOA. O2 remains above 90% but pt is visibly SOA. Mental Status Patient Orientation: Person, Place, Time, Situation Attachments: Oxygen, IV Transfers SCALE: Activities may be completed with or without assistive devices. 2-Ybfytyjbpj-sgzrjng completes the activity by him/herself with no assistance from a helper. 5-Set-up or Clean-up Assistance-helper sets up or cleans up; patient completes activity. [place] assists only prior to or following the activity. 4-Supervision or Touching Assistance-helper provides verbal cues and/or touching/steadying and/or contact guard assistance as patient completes activity. Assistance may be provided throughout the activity or intermittently. 3-Partial/Moderate Assistance-helper does LESS THAN HALF the effort. [place] lifts, holds or supports trunk or limbs, but provides less than half the effort. 2-Substantial/Maximal Assistance-helper does MORE THAN HALF the effort. [place] lifts or holds trunk or limbs and provides more than half the effort. 2-Zyvfbvshe-nohjpp does ALL the effort. Patient does none of the effort to complete the activity. Or, the assistance of 2 or more helpers is required for the patient to complete the activity. If activity was not attempted, code reason: 7-Patient Refused. 9-Not Applicable-not attempted and the patient did not perform the activity before the current illness, exacerbation or injury. 10-Not Attempted due to Environmental Limitations-(lack of equipment, weather restraints, etc.). 88-Not Attempted due to Medical Conditions or Safety Concerns. Weight Bearing Right Lower Extremity: Right Weight Bearing/Tolerated Left Lower Extremity: Left Weight Bearing/Tolerated Exercises Supine Ex: Ankle pumps, Quad Set, Hip abd/add Supine Reps: 15 Treatments Pt declines need for BR although reports feeling very bloated. Pt completes Supine Ex but must takes frequent RB during EX. Pt resting at end of tx. All needs met, call light in hand. Assessment Current Status: Poor Progress Quickly fatigues and visibly SOA during any exertion, extended time to recover. PT Short Term Goals Short Term Goals Time Frame: Oct 17, 2021 Roll Left & Right: 6 Sit to lyin Lying to sitting on side of be: 4 Sit to stand: 4 (SBA) Chair/wdu-ys-tnbpe transfer: 4 (SBA) Walk 10 feet: 4 Walk 50 feet with two turns: 4 Walk 150 feet: 4 PT Radio Repairer Domestic Goals [facility] Goals PT Radio Repairer Domestic Goals Time Frame: Oct 31, 2021 Roll Left & Right (QC): 6 Sit to Lying (QC): 6 Lying-Sitting on Side/Bed(QC): 6 Sit to Stand (QC): 6 Chair/Pxs-rn-Pohuc Xfer(QC): 6 Toilet Transfer (QC): 6 Car Transfer (QC): 3 Does the Patient Walk: Yes Walk 10 feet (QC): 6 Walk 50ft with 2 Turns (QC): 6 Walk 150 ft (QC): 6 Walking 10ft on Uneven Surface: 4 1 Step (curb) (QC): 4 4 Steps (QC): 4 12 Steps (QC): 88 Picking up an Object (QC): 4 Wheel 50 feet with 2 turns (QC: 9 Wheel 150 feet: 9 PT Plan Problem List Problem List: Activity Tolerance, Functional Strength, Gait Treatment/Plan Treatment Plan: Continue Plan of Care Treatment Plan: Bed Mobility, Education, Functional Activity Tatiana, Functional Strength, Group Therapy, Gait, Safety, Therapeutic Exercise, Transfers Treatment Duration: Oct 31, 2021 Frequency: At least 5 of 7 days/Wk (IRF) Estimated Hrs Per Day: 1.5 hours per day Patient and/or Family Agrees t: Yes Safety Risks/Education Patient Education: Disease Process Teaching Recipient: Patient Teaching Methods: Discussion Response to Teaching: Verbalize Understanding Time/GCodes Time In: 1320 Time Out: 1350 Total Billed Treatment Time: 30 Total Billed Treatment 1, FA x2 (30m) ANDREA MILLIGAN CALENDER LET OFF OPERATOR Oct 18, 2021 13:57
[2021-10-18] MEDS: BISACODYL 10 MG SUPP (DULCOLAX) PR PRN (14:45)
[2021-10-18] MEDS: LACTULOSE SYRUP 10GM/15ML (ENULOSE) 30ML UDC PO PRN (16:42)
[2021-10-18 20:37] VITALS: BP 153/70
[2021-10-18] MEDS: MONTELUKAST 10 MG (SINGULAIR) TAB PO SCH (21:08)
[2021-10-19] MEDS: VANCOMYCIN 125 MG CAPSULE PO SCH ×4 (00:09→17:54)
--- NOTE | 2021-10-19 05:47 | PM&R Progress Note ---
Subjective HPI/CC On Admission Date Seen by Provider: Oct 19, 2021 Time Seen by Provider: 10:00 Subjective/Events-last exam 10/19/2021: Patient appears to be dramatically improved Overall less short of breath Cystoscopy revealed BPH Bal catheter replaced Working on bowels 10/18/21: EGD/Colonoscopy will be canceled Straight Catheter will be addressed by Dr. Izaguirre D/C isolation for C-Diff Vanc PO continues for now Bumex given daily Respiratory status is tenuous 10/17/21: Pt is doing pretty well C-diff was negative but I think the elevated white count and loose stools are still at risk for C-diff. Maintain Vancomycin PO Venofer iron infusions maintained EGD and colonoscopy for Friday Improved dyspnea with Bumex 10/16/21: Pt is very complicated Dr. Izaguirre will see him ABG could not be obtained Chest x-ray reveals the infiltrate pulmonary edema Remains on 3.5L of O2 Xarelto is on hold IV iron infusions maintained IV Bumex ordered by Cardiology 10/15/21: Pt is doing about the same Pt had a formed BM Can't do c.diff on formed bowels Dr. Ford to see for volume overload White count down to 30,000 Holding anticoagulation due to hemoccult positive stools and anemia Hemoglobin 8.1 10/14/2021: Patient feels better Elevated white count he is suspicious Dark stool was Hemoccult and it is positive Consulted Dr. MARROQUIN and ordered proton pump inhibitor twice daily and Carafate and holding Xarelto C. difficile will be ordered due to significantly elevated white blood cell count but no fever or any other findings of infectious source Check meds labs Very complex issues 10/13/2021: Patient doing better Oxygen down to 3 L Gave Lasix 20 mg IV after I conferred with Dr. Colon Edema noted Labs revealed white count elevated due to steroid effect Antibiotics still on board LIZZETTE carlos maintained Had BM yesterday Wheezing noted but no coarseness Urinary retention management 10/12/21: Pt dramatically improved Dr. Ford is monitoring Accapella is being used 4L of of O2 now Voiding well since Catheter removed Took a shower today he feels much better 10/11/21: Pt doing a lot better today Bowels are moving Catheter was discontinued Blood pressure is doing okay White count 20,000 from steroid Hemoglobin is 9.3 Remains on 4-6L of O2 and does increase with exertion Overall, much improved Review of Systems General: Fatigue, Malaise Pulmonary: Dyspnea Objective Exam Vital Signs Vital Signs Date Time Temp Pulse Resp B/P (MAP) Pulse Ox O2 Delivery O2 Flow Rate FiO2 10/19/21 21:04 100 High Flow N/C 3.00 10/19/21 20:00 36.4 80 20 114/63 (80) Capillary Refill : General Appearance: No Apparent Distress, WD/WN, Anxious, Chronically ill HEENT: PERRL/EOMI, Normal ENT Inspection, Pharynx Normal Neck: Full Range of Motion, Normal Inspection, Non Tender, Supple, Carotid Bruit Respiratory: Chest Non Tender, Lungs Clear, Normal Breath Sounds, No Accessory Muscle Use, No Respiratory Distress Cardiovascular: Regular Rate, Rhythm, No Edema, No Gallop, No JVD, No Murmur, Normal Peripheral Pulses Gastrointestinal: Normal Bowel Sounds, No Organomegaly, No Pulsatile Mass, Non Tender, Soft Back: Normal Inspection, No CVA Tenderness, No Vertebral Tenderness Extremity: Normal Capillary Refill, Normal Inspection, Normal Range of Motion, Non Tender, No Calf Tenderness, No Pedal Edema Neurologic/Psychiatric: Alert, Oriented x3, No Motor/Sensory Deficits, Normal Mood/Affect Skin: Normal Color, Warm/Dry Lymphatic: No Adenopathy Results/Procedures Lab Laboratory Tests 10/19/21 05:50 Patient resulted labs reviewed. FIM Transfers Therapy Code Descriptions/Definitions Functional [place] Measure: 0=Not Assessed/NA 4=Minimal Assistance 1=Total Assistance 5=Supervision or Setup 2=Maximal Assistance 6=Modified [place] 3=Moderate Assistance 7=Complete IndependenceSCALE: Activities may be completed with or without assistive devices. 9-Inuqhthmxa-bckmwok completes the activity by him/herself with no assistance from a helper. 5-Set-up or Clean-up Assistance-helper sets up or cleans up; patient completes activity. [place] assists only prior to or following the activity. 4-Supervision or Touching Assistance-helper provides verbal cues and/or touching/steadying and/or contact guard assistance as patient completes activity. Assistance may be provided throughout the activity or intermittently. 3-Partial/Moderate Assistance-helper does LESS THAN HALF the effort. [place] lifts, holds or supports trunk or limbs, but provides less than half the effort. 2-Substantial/Maximal Assistance-helper does MORE THAN HALF the effort. [place] lifts or holds trunk or limbs and provides more than half the effort. 1-Hgkpemnzd-afifkx does ALL the effort. Patient does none of the effort to complete the activity. Or, the assistance of 2 or more helpers is required for the patient to complete the activity. If activity was not attempted, code reason: 7-Patient Refused. 9-Not Applicable-not attempted and the patient did not perform the activity before the current illness, exacerbation or injury. 10-Not Attempted due to Environmental Limitations-(lack of equipment, weather restraints, etc.). 88-Not Attempted due to Medical Conditions or Safety Concerns. Roll Left to Right (QC): 6 Sit to Lying (QC): 4 Sit to Stand (QC): 5 Chair/Mej-dk-Lietl Xfer(QC): 5 Car Transfer (QC): 3 Gait Training Does the Patient Walk?: Yes Distance: 15' Walk 10 feet (QC): 5 Walk 50 ft with 2 Turns(QC): 4 Walk 150 ft (QC): 88 Walking 10ft/uneven surface-QC: 88 Gait Persons Needed: 1 Gait Assistive Device: FWW Wheelchair Training Does the Pt Use a Wheelchair?: Yes Wheel 50 ft with 2 turns (QC): 1 Wheel 150 ft (QC): 1 Type of Wheelchair: Manual Stair Training 1 Step (curb) (QC): 88 4 Steps (QC): 88 12 Steps (QC): 88 Balance Picking up an Object (QC): 88 ADL-Treatment Eating (QC): 6 Oral Hygiene (QC): 6 Shower/Bathe Self (QC): 3 Upper Body Dressing (QC): 4 Lower Body Dressing (QC): 3 On/Off Footwear (QC): 2 Toileting Hygiene (QC): 4 Toilet Transfer (QC): 4 Assessment/Plan Assessment and Plan Assess & Plan/Chief Complaint Assessment: Debility New onset AF w/recent RVR Active wheezing AECOPD Hypoxia PNA s/p septic shock CHAZ HTN Hypoxemia Urinary retention 10/13/21 Volume overload giving Lasix per Dr Ford Dark stool Hemoccult + 10/14/[address] MARROQUIN and change PPI to twice daily and added Carafate and holding Xarelto Severely elevated white count without source checking C. difficile Presumed C diff colitis placed on Vanc PO but test negative? Plan: Monitor closely IV steroids IV abx DC cath tomorrow Supportive care 10/11/21: Monitor closely Cath DC 10/12/21: Doing extremely well Monitor closely 10/13/21: Lasix 20mgIV x [address] Colon Urinary retention management 10/14/2021: Check C. difficile Hold Xarelto PPI and Carafate 10/15/21: Appreciate Dr Ford Consult Dr Izaguirre 10/16/21: Vanc PO Monitor closely Complex case 10/17/21: Vanc PO C diff negative but still suspicious 10/18/21: Monitor wbc Decrease steroids Diuresis 10/19/2021: Supportive care Decrease steroids Continue diuresis (1) Acute heart failure with preserved ejection fraction (HFpEF) Assessment & Plan: He probably does have some volume overload, possibly in part related to volume resuscitation when he was first admitted to the hospital. I started him on intravenous diuretic on 10/15. His chest x-ray from 10/16 still shows bilateral pleural effusions. I increased his IV diuretic. His symptoms are slowly improving. We will need to watch his renal function closely. (2) Paroxysmal atrial fibrillation Status: Acute Assessment & Plan: He initially was having sinus tachycardia and multifocal atrial tachycardia but towards the end of his acute hospitalization, he may have had at least a few episodes of atrial fibrillation. I placed the patient on rivaroxaban for stroke prophylaxis. He is on diltiazem for rate control. He seems to be remaining in sinus rhythm since being transferred to inpatient rehab. I discontinued telemetry last week. The atrial fibrillation may have been brought on by his acute, noncardiac illness when he was initially admitted. Due to his acute anemia and heme positive stool, Xarelto is now on hold. (3) Primary hypertension Status: Chronic Assessment & Plan: Blood pressures are reasonably controlled with the current dose of diltiazem which he is on due to atrial fibrillation. (4) Multifocal atrial tachycardia Status: Acute Assessment & Plan: As above, he was predominantly having multifocal atrial tachycardia. Now he is back in sinus rhythm. I recommend he continue on diltiazem. (5) Mixed hyperlipidemia Status: Chronic Assessment & Plan: Continue atorvastatin. (6) Acute kidney injury Status: Acute Assessment & Plan: His renal function now seems to have stabilized. We will need to monitor this closely with intravenous diuretic. FRANCISCO BHAKTA DO Oct 19, 2021 05:47
[2021-10-19 06:08] LABS: BASOPHILS % (AUTO) 0 % (0-10); EOSINOPHILS % (AUTO) 0 % (0-10); HEMATOCRIT 26 % (40-54); HEMOGLOBIN 7.9 g/dL (13.3-17.7); LYMPHOCYTES # (AUTO) 1.7 10^3/uL (1.0-4.0); LYMPHOCYTES % (AUTO) 8 % (12-44); MEAN CORPUSCULAR HEMOGLOBIN 28 pg (25-34); MEAN CORPUSCULAR HGB CONC 31 g/dL (32-36); MEAN CORPUSCULAR VOLUME 90 fL (80-99); MEAN PLATELET VOLUME 9.6 fL (9.0-12.2); MONOCYTES # (AUTO) 1.7 10^3/uL (0.0-1.0); MONOCYTES % (AUTO) 8 % (0-12); NEUTROPHILS # (AUTO) 17.7 10^3/uL (1.8-7.8); NEUTROPHILS % (AUTO) 82 % (42-75); PLATELET COUNT 578 10^3/uL (130-400); WHITE BLOOD COUNT 21.6 10^3/uL (4.3-11.0)
[2021-10-19] MEDS: CATHETER FLUSH 10 ML SYR IV SCH ×3 (06:12→20:56)
[2021-10-19] MEDS: inSUlin ASPART (NovoLOG) 1 UNIT/0.01 ML (CHARGE PER UNIT) SC SCH ×4 (06:12→20:52)
[2021-10-19] MEDS: SUCRALFATE 1 GM (CARAFATE) TAB PO SCH ×4 (06:29→20:58)
[2021-10-19] MEDS: LACTOBACILLUS Acidoph/Bulgar 1 GM (LACTINEX) PACKET PO SCH ×2 (06:29→10:55)
[2021-10-19] MEDS: BUMETANIDE 1 MG/4 ML (BUMEX) VIAL IV SCH ×2 (06:31→17:54)
[2021-10-19] MEDS: predniSONE 20 MG TAB PO SCH (06:31)
[2021-10-19 06:33] LABS: ALBUMIN 2.8 GM/DL (3.2-4.5); BILIRUBIN,TOTAL 0.3 MG/DL (0.1-1.0); CALCIUM 7.7 MG/DL (8.5-10.1); CREATININE SERUM 1.05 MG/DL (0.60-1.30); POTASSIUM 3.8 MMOL/L (3.6-5.0); TOTAL PROTEIN 4.6 GM/DL (6.4-8.2)
[2021-10-19] MEDS: RT-BUDESONIDE NEBS 0.5 MG/2ML (PULMICORT) AMP INH SCH ×2 (07:00→19:00)
[2021-10-19] MEDS: RT-ALBUTEROL/IPRATROPIUM 3 ML (DUONEB) VIAL INH SCH ×3 (07:01→18:59)
[2021-10-19 07:03] LABS: ACANTHOCYTES SLIGHT; ANISOCYTOSIS SLIGHT; ATYPICAL LYMPHOCYTES 1 %; BURR CELLS SLIGHT; LYMPHOCYTES % (MANUAL) 9 %; MONOCYTES % (MANUAL) 3 %; NEUTROPHILS % (MANUAL) 87 %; NUCLEATED RED BLOOD CELLS 1
[2021-10-19 07:24] VITALS: BP 134/64
[2021-10-19] MEDS: SENNA W/DOCUSATE (SENOKOT S) TABLET PO SCH ×2 (07:41→20:58)
[2021-10-19] MEDS: CAL. POLYCARBOPHIL 625 MG (FIBERCON) TAB PO SCH (07:41)
[2021-10-19] MEDS: SENNOSIDES 8.6 MG (SENOKOT) TAB PO SCH ×2 (07:41→20:57)
[2021-10-19] MEDS: DOCUSATE SODIUM 100 MG (COLACE) CAP PO SCH ×2 (07:41→20:58)
[2021-10-19] MEDS: LORATADINE (CLARITIN) 10 MG TAB PO SCH (07:42)
[2021-10-19] MEDS: PANTOPRAZOLE 40 MG (PROTONIX) TAB PO SCH ×2 (07:42→20:58)
[2021-10-19] MEDS: TAMSULOSIN 0.4 MG (FLOMAX) CAP PO SCH ×2 (07:42→20:58)
[2021-10-19] MEDS: polyethylene glycoL POWDER 17 GM (MIRALAX) PACK PO SCH ×2 (07:46→20:57)
--- NOTE | 2021-10-19 08:22 | Progress Note-Pre Operative ---
Pre-Operative Progress Note H&P Reviewed The H&P was reviewed, patient examined and no changes noted. Date Seen by Provider: Oct 19, 2021 Time Seen by Provider: 08:21 Date H&P Reviewed: Oct 19, 2021 Time H&P Reviewed: 08:21 Pre-Operative Diagnosis: URINE RETENTION ATILIO WILSON MD Oct 19, 2021 08:22
--- NOTE | 2021-10-19 08:25 | Progress Note-Post Operative ---
Post-Operative Progess Note Surgeon (s)/Warehouse Coordinator (s) Surgeon ATILIO WILSON MD Warehouse Coordinator: NONE Pre-Operative Diagnosis URINE RETENTION Post-Operative Diagnosis SAME Procedure & Operative Findings Date of Procedure 10/19/21 Procedure Performed/Findings CYSTOSCOPY Anesthesia Type LOCAL Estimated Blood Loss Estimated blood loss (mL): NONE Specimens/Packing Specimens Removed NONE Packing: NONE ATILIO WILSON MD Oct 19, 2021 08:25
--- NOTE | 2021-10-19 10:50 | Occupational Ther Daily Note ---
OT Current Status-Daily Note Subjective Pt reports extreme fatigue as well as fear of having a major bowel incontinence secondary to having 4-5 laxatives and a suppository. Appearance Returned to sitting in chair, BLE's elevated, all needs within reach. Mental Status/Objective Patient Orientation: Person, Place, Situation Attachments: Bal Catheter, IV, Oxygen ADL-Treatment Therapy Code Descriptions/Definitions Functional [place] Measure: 0=Not Assessed/NA 4=Minimal Assistance 1=Total Assistance 5=Supervision or Setup 2=Maximal Assistance 6=Modified [place] 3=Moderate Assistance 7=Complete IndependenceSCALE: Activities may be completed with or without assistive devices. 1-Qpsyjitgui-mnhswky completes the activity by him/herself with no assistance from a helper. 5-Set-up or Clean-up Assistance-helper sets up or cleans up; patient completes activity. [place] assists only prior to or following the activity. 4-Supervision or Touching Assistance-helper provides verbal cues and/or touching/steadying and/or contact guard assistance as patient completes activity. Assistance may be provided throughout the activity or intermittently. 3-Partial/Moderate Assistance-helper does LESS THAN HALF the effort. [place] lifts, holds or supports trunk or limbs, but provides less than half the effort. 2-Substantial/Maximal Assistance-helper does MORE THAN HALF the effort. [place] lifts or holds trunk or limbs and provides more than half the effort. 3-Ryfsbierf-pjqofq does ALL the effort. Patient does none of the effort to complete the activity. Or, the assistance of 2 or more helpers is required for the patient to complete the activity. If activity was not attempted, code reason: 7-Patient Refused. 9-Not Applicable-not attempted and the patient did not perform the activity before the current illness, exacerbation or injury. 10-Not Attempted due to Environmental Limitations-(lack of equipment, weather restraints, etc.). 88-Not Attempted due to Medical Conditions or Safety Concerns. Lower Body Dressing (QC): 3 On/Off Footwear: 2 Toileting Hygiene (QC): 3 Toilet Transfer (QC): 4 Pt requests to defer donning clothes secondary to receiving 4-5 laxatives and a suppository within the last 24 hours. He attempted to have a bowel movement during this session but was unsuccessful. Partial sponge bath performed sitting in chair, upper body only with set up. Several rest breaks needed due to SOA. Post instruction on use of cupola tender helper, pt was able to thread BLE's into brief without assist. Improved tolerance with use of AE. Min-mod a needed for balance as he stood to manage brief up to waist. ~5 seconds after standing, LE's begin to tremble. New gown donned. Pt sat to shave; Assist for thoroughness around O2 tubing and picc line. Hair washed with shower cap, pt able to comb. Set up assist provided for oral care. Education provided on importance of oral care in hospital especially following breathing treatments. Education OT Patient Education: Correct positioning, Energy conservation, Modified ADL techniques, Progress toward Goal/Update tx plan, Purpose of tx/functional activities, Safety issues, Use of adapted equipment Teaching Recipient: Patient Teaching Methods: Discussion Response to Teaching: Verbalize Understanding, Reinforcement Needed OT Short Term Goals Short Term Goals Time Frame: Oct 19, 2021 Eatin Oral hygiene: 5 Toileting hygiene: 4 Shower/bathe self: 4 Upper body dressin Lower body dressin Putting on/taking off footwear: 4 OT Snf Goals Special Warfare Operator Goals Time Frame: Oct 26, 2021 Eating (QC): 6 Oral Hygiene (QC): 6 Toileting Hygiene (QC): 6 Shower/Bathe Self (QC): 5 Upper Body Dressing (QC): 5 Lower Body Dressing (QC): 5 On/Off Footwear (QC): 5 1=Demonstrate adherence to instructed precautions during ADL tasks. 2=Patient will verbalize/demonstrate understanding of assistive devices/modifications for ADL. 3=Patient will improve strength/tolerance for activity to enable patient to perform ADL's. OT Education/Plan Problem List/Assessment Assessment: Decreased Activ Tolerance, Decreased UE Strength, Impaired Funct Balance, Impaired I ADL's, Impaired Self-Care Skills Discharge Recommendations Plan/Recommendations: Continue POC Therapy Discharge Recommendati: Post Acute OT Treatment Plan/Plan of Care Treatment,Training & Education: Yes Patient would benefit from OT for education, treatment and training to promote independence in ADL's, mobility, safety and/or upper extremity function for ADL's. Plan of Care: ADL Retraining, Functional Mobility, Group Exercise/Act as Ind, UE Funct Exercise/Act, W/C Management Training Treatment Duration: Oct 26, 2021 Frequency: At least 5 of 7 days/Wk (IRF) Estimated Hrs Per Day: 1.5 hours per day Agreement: Yes Rehab Potential: Fair Time/GCodes Start Time: 09:45 Stop Time: 10:45 Total Time Billed (hr/min): 60 Billed Treatment Time 1 visit ADL x4 Tamiko Fox OT Oct 19, 2021 10:50
--- NOTE | 2021-10-19 12:16 | Physical Therapy Daily Note ---
PT Daily Note-Current Subjective Pt. agrees to Rx, but states many times he is so very concerned about having to have a corbett cath again and is concerned that he has not hand a BM. Pt. declines leaving the room but will walk inside the room and exercise in bed and in sitting. Pain Location: No Pain Reported Mental Status Patient Orientation: Normal For Age Attachments: Oxygen (3L), Corbett Catheter Transfers SCALE: Activities may be completed with or without assistive devices. 1-Txayhelnxk-lpmjurs completes the activity by him/herself with no assistance from a helper. 5-Set-up or Clean-up Assistance-helper sets up or cleans up; patient completes activity. [place] assists only prior to or following the activity. 4-Supervision or Touching Assistance-helper provides verbal cues and/or touching/steadying and/or contact guard assistance as patient completes activity. Assistance may be provided throughout the activity or intermittently. 3-Partial/Moderate Assistance-helper does LESS THAN HALF the effort. [place] lifts, holds or supports trunk or limbs, but provides less than half the effort. 2-Substantial/Maximal Assistance-helper does MORE THAN HALF the effort. [place] lifts or holds trunk or limbs and provides more than half the effort. 4-Dgedefodj-mztpky does ALL the effort. Patient does none of the effort to complete the activity. Or, the assistance of 2 or more helpers is required for the patient to complete the activity. If activity was not attempted, code reason: 7-Patient Refused. 9-Not Applicable-not attempted and the patient did not perform the activity before the current illness, exacerbation or injury. 10-Not Attempted due to Environmental Limitations-(lack of equipment, weather restraints, etc.). 88-Not Attempted due to Medical Conditions or Safety Concerns. Roll Left & Right (QC): 6 Sit to Lying (QC): 6 Lying to Sitting/Side of Bed(Q: 6 Sit to Stand (QC): 6 Chair/Thw-qm-Lvjva Xfer(QC): 6 Toilet Transfer (QC): 6 Weight Bearing Right Lower Extremity: Right Weight Bearing/Tolerated Left Lower Extremity: Left Weight Bearing/Tolerated Gait Training Does the Patient Walk?: Yes Walk 10 feet (QC): 5 Walk 50 ft with 2 Turns(QC): 5 Gait Persons Needed: 1 Gait Assistive Device: FWW pt. ambulated in his room managing tight spaces well , turning with good control and also managing his O2 tubing appropriately 50% of time, otherwise this COST ESTIMATING ENGINEER assisting him. O2 sats were consistently >90% with activity Exercises Supine Ex: Ankle pumps, Quad Set, Rolling, Glut sets, Heel Slides, Short Arc Quads, Scooting, Straight leg raise, Hip abd/add Supine Reps: 20 Seated Therapy Exercises: Ankle pumps, Sit to stand, Long arc quads, Hip flexion, Hip abd/add Seated Reps: 15 Standing: Heel/toe raises, Marching Standing Reps: 15 Treatments Tx#1 30m, therex in bed and TRF sup to sit to sup Tx#2, seated and standing therex, gait about room managing O2 tubing etc, Assessment Current Status: Fair Progress pt. appears depressed, this was discussed with nursing, pt. speaking only of his concerns about his corbett and BMs and no desire to leave his room PT Short Term Goals Short Term Goals Time Frame: Oct 17, 2021 Roll Left & Right: 6 Sit to lyin Lying to sitting on side of be: 4 Sit to stand: 4 (SBA) Chair/gjr-sq-myxjs transfer: 4 (SBA) Walk 10 feet: 4 Walk 50 feet with two turns: 4 Walk 150 feet: 4 PT Accounts Payable Specialist Goals Accounts Payable Specialist Goals PT Accounts Payable Specialist Goals Time Frame: Oct 31, 2021 Roll Left & Right (QC): 6 Sit to Lying (QC): 6 Lying-Sitting on Side/Bed(QC): 6 Sit to Stand (QC): 6 Chair/Jli-pj-Ixcat Xfer(QC): 6 Toilet Transfer (QC): 6 Car Transfer (QC): 3 Does the Patient Walk: Yes Walk 10 feet (QC): 6 Walk 50ft with 2 Turns (QC): 6 Walk 150 ft (QC): 6 Walking 10ft on Uneven Surface: 4 1 Step (curb) (QC): 4 4 Steps (QC): 4 12 Steps (QC): 88 Picking up an Object (QC): 4 Wheel 50 feet with 2 turns (QC: 9 Wheel 150 feet: 9 PT Plan Treatment/Plan Treatment Plan: Continue Plan of Care Treatment Plan: Bed Mobility, Education, Functional Activity Tatiana, Functional Strength, Group Therapy, Gait, Safety, Therapeutic Exercise, Transfers Treatment Duration: Oct 31, 2021 Frequency: At least 5 of 7 days/Wk (IRF) Estimated Hrs Per Day: 1.5 hours per day Patient and/or Family Agrees t: Yes Safety Risks/Education Patient Education: Gait Training, Transfer Techniques, Correct Positioning, Safety Issues Teaching Recipient: Patient Teaching Methods: Demonstration, Discussion Response to Teaching: Verbalize Understanding, Return Demonstration, Reinforcement Needed Time/GCodes Time In: 1100 Time Out: 1200 Total Billed Treatment Time: 60 Total Billed Treatment 1x2, 1st Tx:EX30m, 2nd Tx: GT25m,EX20m,FA15m STEPHANI MOTTA COST ESTIMATING ENGINEER Oct 19, 2021 12:16
--- NOTE | 2021-10-19 12:35 | Cardiology Progress Note ---
Progress Note-Cardiology Events since last exam Date Seen by Provider: Oct 19, 2021 Time Seen by Provider: 11:45 Events since last exam I am following him due to heart failure. Vitals Last set of Vitals Signs Vital Signs 10/13/21 10/19/21 10/19/21 11:16 07:24 10:27 Temp 36.0 Pulse 80 Resp 16 B/P (MAP) 134/64 (87) Pulse Ox 96 O2 Delivery Nasal Cannula O2 Flow Rate 3.00 FiO2 32 Labs Labs Laboratory Tests 10/19/21 05:50 Exam Vital Signs Vital Signs Date Time Temp Pulse Resp B/P (MAP) Pulse Ox O2 Delivery O2 Flow Rate FiO2 10/19/21 10:27 96 Nasal Cannula 3.00 10/19/21 07:24 36.0 80 16 134/64 (87) 10/13/21 11:16 32 Physical Exam General: Alert. No acute distress. Eye: No xanthelasma. HENT: Normocephalic. Neck: Jugular venous pressure does not appear elevated. Respiratory: Lungs are clear to auscultation with improved bibasilar aeration. Respirations are non-labored. Breath sounds are equal. Symmetrical chest wall expansion. Cardiovascular: Normal rate. Regular rhythm. No murmur. No gallop. 2+ bilateral pretibial edema. Gastrointestinal: Soft. Normal bowel sounds. Skin: Warm. Dry. Neurologic: Alert and oriented to person, place, time. Cranial nerves 3-11 grossly intact. Psychiatric: Cooperative. Appropriate mood & affect. Labs Laboratory Tests Test 10/18/21 15:50 10/18/21 20:00 10/19/21 05:50 10/19/21 05:52 Range/Units Glucometer 135 H 149 H 86 70-110 MG/DL White Blood Count 21.6 H 4.3-11.0 10^3/uL Red Blood Count 2.85 L 4.30-5.52 10^6/uL Hemoglobin 7.9 L 13.3-17.7 g/dL Hematocrit 26 L 40-54 % Mean Corpuscular Volume 90 80-99 fL Mean Corpuscular Hemoglobin 28 25-34 pg Mean Corpuscular Hemoglobin Concent 31 L 32-36 g/dL Red Cell Distribution Width 16.7 H 10.0-14.5 % Platelet Count 578 H 130-400 10^3/uL Mean Platelet Volume 9.6 9.0-12.2 fL Immature Granulocyte % (Auto) 3 % Neutrophils (%) (Auto) 82 H 42-75 % Lymphocytes (%) (Auto) 8 L 12-44 % Monocytes (%) (Auto) 8 0-12 % Eosinophils (%) (Auto) 0 0-10 % Basophils (%) (Auto) 0 0-10 % Neutrophils # (Auto) 17.7 H 1.8-7.8 10^3/uL Lymphocytes # (Auto) 1.7 1.0-4.0 10^3/uL Monocytes # (Auto) 1.7 H 0.0-1.0 10^3/uL Eosinophils # (Auto) 0.0 0.0-0.3 10^3/uL Basophils # (Auto) 0.0 0.0-0.1 10^3/uL Immature Granulocyte # (Auto) 0.6 H 0.0-0.1 10^3/uL Neutrophils % (Manual) 87 % Lymphocytes % (Manual) 9 % Monocytes % (Manual) 3 % Nucleated Red Blood Cells 1 Atypical Lymphocytes 1 % Dohle Bodies Anisocytosis SLIGHT Radha Cells SLIGHT Acanthocytes SLIGHT Sodium Level 137 135-145 MMOL/L Potassium Level 3.8 3.6-5.0 MMOL/L Chloride Level 101 98-107 MMOL/L Carbon Dioxide Level 27 21-32 MMOL/L Anion Gap 9 5-14 MMOL/L Blood Urea Nitrogen 24 H 7-18 MG/DL Creatinine 1.05 0.60-1.30 MG/DL Estimat Glomerular Filtration Rate 72 BUN/Creatinine Ratio 23 Glucose Level 84 70-105 MG/DL Calcium Level 7.7 L 8.5-10.1 MG/DL Corrected Calcium 8.7 8.5-10.1 MG/DL Total Bilirubin 0.3 0.1-1.0 MG/DL Aspartate Amino Transf (AST/SGOT) 24 5-34 U/L Alanine Aminotransferase (ALT/SGPT) 48 0-55 U/L Alkaline Phosphatase 75 40-136 U/L Total Protein 4.6 L 6.4-8.2 GM/DL Albumin 2.8 L 3.2-4.5 GM/DL Test 10/19/21 10:49 Range/Units Glucometer 157 H 70-110 MG/DL Diagnosis/Problems Diagnosis/Problems (1) Acute heart failure with preserved ejection fraction (HFpEF) Assessment & Plan: He probably does have some volume overload, possibly in part related to volume resuscitation when he was first admitted to the hospital. I started him on intravenous diuretic on 10/15. His chest x-ray from 10/16 still shows bilateral pleural effusions. I increased his IV diuretic. His symptoms are slowly improving. We will need to watch his renal function closely. I will obtain a follow-up chest x-ray. (2) Paroxysmal atrial fibrillation Status: Acute Assessment & Plan: He initially was having sinus tachycardia and multifocal atrial tachycardia but towards the end of his acute hospitalization, he may have had at least a few episodes of atrial fibrillation. I placed the patient on rivaroxaban for stroke prophylaxis. He is on diltiazem for rate control. He seems to be remaining in sinus rhythm since being transferred to inpatient rehab. I discontinued telemetry last week. The atrial fibrillation may have been brought on by his acute, noncardiac illness when he was initially admitted. Due to his acute anemia and heme positive stool, rivaroxaban is now on hold. (3) Primary hypertension Status: Chronic Assessment & Plan: Blood pressures are reasonably controlled with the current dose of diltiazem which he is on due to atrial fibrillation. (4) Multifocal atrial tachycardia Status: Acute Assessment & Plan: As above, he was predominantly having multifocal atrial tachycardia. Now he is back in sinus rhythm. I recommend he continue on diltiazem. (5) Mixed hyperlipidemia Status: Chronic Assessment & Plan: Continue atorvastatin. (6) Acute kidney injury Status: Acute Assessment & Plan: His renal function now seems to have stabilized. We will need to monitor this closely with intravenous diuretic. SHERRI CHO JR, MD Oct 19, 2021 12:35
--- NOTE | 2021-10-19 13:16 | Occupational Ther Daily Note ---
OT Current Status-Daily Note Subjective Denies pain, agreeable to treatment Appearance Left sitting in chair at OT departure. ADL-Treatment Therapy Code Descriptions/Definitions Functional [place] Measure: 0=Not Assessed/NA 4=Minimal Assistance 1=Total Assistance 5=Supervision or Setup 2=Maximal Assistance 6=Modified [place] 3=Moderate Assistance 7=Complete IndependenceSCALE: Activities may be completed with or without assistive devices. 7-Wpugbbeanv-ysrebpg completes the activity by him/herself with no assistance from a helper. 5-Set-up or Clean-up Assistance-helper sets up or cleans up; patient completes activity. [place] assists only prior to or following the activity. 4-Supervision or Touching Assistance-helper provides verbal cues and/or touching/steadying and/or contact guard assistance as patient completes activity. Assistance may be provided throughout the activity or intermittently. 3-Partial/Moderate Assistance-helper does LESS THAN HALF the effort. [place] lifts, holds or supports trunk or limbs, but provides less than half the effort. 2-Substantial/Maximal Assistance-helper does MORE THAN HALF the effort. [place] lifts or holds trunk or limbs and provides more than half the effort. 8-Bdfsoafop-nvtvfb does ALL the effort. Patient does none of the effort to complete the activity. Or, the assistance of 2 or more helpers is required for the patient to complete the activity. If activity was not attempted, code reason: 7-Patient Refused. 9-Not Applicable-not attempted and the patient did not perform the activity before the current illness, exacerbation or injury. 10-Not Attempted due to Environmental Limitations-(lack of equipment, weather restraints, etc.). 88-Not Attempted due to Medical Conditions or Safety Concerns. Other Treatment Pt participated in AROM UE exercises with goal to promote increased endurance, strength, and pulmonary function needed for adls and transfers. Mod cues for proper breathing techniques as pt has tendency to hold breath. Shoulder exercises performed within available range; ~120 degrees. Rest break needed after each exercise. 10-12 x1. Edema notable in BUE's, L worse than R. OT educated pt on exercises and elevation to aid in reducing swelling. Education OT Patient Education: Correct positioning, Energy conservation, Exercise program, Progress toward Goal/Update tx plan, Purpose of tx/functional activities Teaching Recipient: Patient Teaching Methods: Demonstration, Discussion Response to Teaching: Verbalize Understanding, Return Demonstration OT Short Term Goals Short Term Goals Time Frame: Oct 19, 2021 Eatin Oral hygiene: 5 Toileting hygiene: 4 Shower/bathe self: 4 Upper body dressin Lower body dressin Putting on/taking off footwear: 4 OT Unified Communications Engineer Goals [facility] Goals Time Frame: Oct 26, 2021 Eating (QC): 6 Oral Hygiene (QC): 6 Toileting Hygiene (QC): 6 Shower/Bathe Self (QC): 5 Upper Body Dressing (QC): 5 Lower Body Dressing (QC): 5 On/Off Footwear (QC): 5 1=Demonstrate adherence to instructed precautions during ADL tasks. 2=Patient will verbalize/demonstrate understanding of assistive devices/modifications for ADL. 3=Patient will improve strength/tolerance for activity to enable patient to perform ADL's. OT Education/Plan Problem List/Assessment Assessment: Decreased Activ Tolerance, Decreased UE Strength, Impaired Funct B alance, Impaired I ADL's, Impaired Self-Care Skills, Restricted Funct UE ROM Discharge Recommendations Plan/Recommendations: Continue POC Treatment Plan/Plan of Care Treatment,Training & Education: Yes Patient would benefit from OT for education, treatment and training to promote independence in ADL's, mobility, safety and/or upper extremity function for ADL's. Plan of Care: ADL Retraining, Functional Mobility, Group Exercise/Act as Ind, UE Funct Exercise/Act, W/C Management Training Treatment Duration: Oct 26, 2021 Frequency: At least 5 of 7 days/Wk (IRF) Estimated Hrs Per Day: 1.5 hours per day Agreement: Yes Rehab Potential: Fair Time/GCodes Start Time: 12:42 Stop Time: 13:12 Total Time Billed (hr/min): 30 Billed Treatment Time 1 visit EX x2 SheriTamiko rosenthal OT Oct 19, 2021 13:16
--- NOTE | 2021-10-19 14:00 | Diagnostic Imaging Report ---
EXAMINATION: Chest, two views. HISTORY: 10/16/2021. COMPARISON: None available. FINDINGS: Heart size and pulmonary vasculature are normal. There are bilateral pleural effusions. Patchy interstitial opacities in the mid and lower lungs, which have slightly increased from 10/16/2021. No pneumothorax. Degenerative changes of the thoracic spine. Osseous structures are otherwise intact. IMPRESSION: 1. Bilateral pleural effusions with increasing interstitial opacities in the lower lungs. Dictated by: Dictated on workstation # [id number]
[2021-10-19] MEDS: LACTOBACILLUS ACIDOPHILUS (PROBIOTIC) CAPSULE PO SCH ×2 (17:54→20:58)
[2021-10-19] MEDS: LACTULOSE SYRUP 10GM/15ML (ENULOSE) 30ML UDC PO PRN (18:41)
[2021-10-19 20:00] VITALS: BP 114/63
--- NOTE | 2021-10-19 20:40 | OPERATIVE REPORT ---
DATE OF SERVICE: 10/19/2021 PREOPERATIVE DIAGNOSIS: ____ POSTOPERATIVE DIAGNOSIS: ____ PROCEDURE PERFORMED: Cystoscopy. SURGEON: Donaldo Wilson MD ANESTHESIA: Local. COMPLICATIONS: None. DESCRIPTION OF PROCEDURE: With the patient supine in his bed, genitalia were prepped and draped in the usual sterile fashion. Urethra was infiltrated with lidocaine jelly. Penile clamp was applied. Flexible cystoscope was introduced under vision. The anterior urethra was normal. The prostate revealed enlargement with the lateral lobe meeting in the midline and median lobe/median bar projecting and causing more obstruction. Bladder was entered, revealed trabeculation, no foreign body, bladder tumor or stone visualized. Ureteric orifices with clear effluxes. Cystoscopy was confirmed in an antegrade fashion and the cystoscope was removed. The patient tolerated the procedure and anesthesia well and remained in his bed in stable condition. PLAN: Next time ____ catheter, we will leave it in over the weekend, give him some rest as well for his bladder and try it on Friday. Plan was fully explained to the patient. Job ID: [id number] DocumentID: [id number] Dictated Date: 10/19/2021 08:28:04 [employer] Date: 10/19/2021 13:05:45 Dictated By: DONALDO WILSON MD
[2021-10-19] MEDS: MONTELUKAST 10 MG (SINGULAIR) TAB PO SCH (20:58)
[2021-10-20] MEDS: VANCOMYCIN 125 MG CAPSULE PO SCH ×4 (00:11→17:16)
[2021-10-20] MEDS: CATHETER FLUSH 10 ML SYR IV SCH ×3 (06:06→21:27)
--- NOTE | 2021-10-20 06:06 | PM&R Progress Note ---
Subjective HPI/CC On Admission Date Seen by Provider: Oct 20, 2021 Time Seen by Provider: 12:00 Subjective/Events-last exam 10/20/2021: Patient dramatically improved Bumex 1 mg IV is now twice a day LIZZETTE hose ordered Breathing better 96% on 3 L Bal catheter will remain until Friday Bowel treatment will intensify Patient feels better 10/19/2021: Patient appears to be dramatically improved Overall less short of breath Cystoscopy revealed BPH Bal catheter replaced Working on bowels 10/18/21: EGD/Colonoscopy will be canceled Straight Catheter will be addressed by Dr. Izaguirre D/C isolation for C-Diff Vanc PO continues for now Bumex given daily Respiratory status is tenuous 10/17/21: Pt is doing pretty well C-diff was negative but I think the elevated white count and loose stools are still at risk for C-diff. Maintain Vancomycin PO Venofer iron infusions maintained EGD and colonoscopy for Friday Improved dyspnea with Bumex 10/16/21: Pt is very complicated Dr. Izaguirre will see him ABG could not be obtained Chest x-ray reveals the infiltrate pulmonary edema Remains on 3.5L of O2 Xarelto is on hold IV iron infusions maintained IV Bumex ordered by Cardiology 10/15/21: Pt is doing about the same Pt had a formed BM Can't do c.diff on formed bowels Dr. Ford to see for volume overload White count down to 30,000 Holding anticoagulation due to hemoccult positive stools and anemia Hemoglobin 8.1 10/14/2021: Patient feels better Elevated white count he is suspicious Dark stool was Hemoccult and it is positive Consulted Dr. MARROQUIN and ordered proton pump inhibitor twice daily and Carafate and holding Xarelto C. difficile will be ordered due to significantly elevated white blood cell count but no fever or any other findings of infectious source Check meds labs Very complex issues 10/13/2021: Patient doing better Oxygen down to 3 L Gave Lasix 20 mg IV after I conferred with Dr. Colon Edema noted Labs revealed white count elevated due to steroid effect Antibiotics still on board LIZZETTE hose maintained Had BM yesterday Wheezing noted but no coarseness Urinary retention management 10/12/21: Pt dramatically improved Dr. Ford is monitoring Accapella is being used 4L of of O2 now Voiding well since Catheter removed Took a shower today he feels much better 10/11/21: Pt doing a lot better today Bowels are moving Catheter was discontinued Blood pressure is doing okay White count 20,000 from steroid Hemoglobin is 9.3 Remains on 4-6L of O2 and does increase with exertion Overall, much improved Review of Systems General: Fatigue, Malaise Pulmonary: Dyspnea, Cough Objective Exam Vital Signs Vital Signs Date Time Temp Pulse Resp B/P (MAP) Pulse Ox O2 Delivery O2 Flow Rate FiO2 10/21/21 01:27 84 97 10/20/21 20:45 High Flow N/C 3.00 10/20/21 20:00 36.6 20 94/49 (64) Capillary Refill : General Appearance: No Apparent Distress, WD/WN, Anxious, Chronically ill HEENT: PERRL/EOMI, Normal ENT Inspection, Pharynx Normal Neck: Full Range of Motion, Normal Inspection, Non Tender, Supple, Carotid Bruit Respiratory: Chest Non Tender, Lungs Clear, Normal Breath Sounds, No Accessory Muscle Use, No Respiratory Distress Cardiovascular: Regular Rate, Rhythm, No Edema, No Gallop, No JVD, No Murmur, Normal Peripheral Pulses Gastrointestinal: Normal Bowel Sounds, No Organomegaly, No Pulsatile Mass, Non Tender, Soft Back: Normal Inspection, No CVA Tenderness, No Vertebral Tenderness Extremity: Normal Capillary Refill, Normal Inspection, Normal Range of Motion, Non Tender, No Calf Tenderness, No Pedal Edema Neurologic/Psychiatric: Alert, Oriented x3, No Motor/Sensory Deficits, Normal Mood/Affect Skin: Normal Color, Warm/Dry Lymphatic: No Adenopathy Results/Procedures Lab Laboratory Tests 10/20/21 06:10 Patient resulted labs reviewed. FIM Transfers Therapy Code Descriptions/Definitions Functional [place] Measure: 0=Not Assessed/NA 4=Minimal Assistance 1=Total Assistance 5=Supervision or Setup 2=Maximal Assistance 6=Modified [place] 3=Moderate Assistance 7=Complete IndependenceSCALE: Activities may be completed with or without assistive devices. 3-Ksrunpxadh-ywzionh completes the activity by him/herself with no assistance from a helper. 5-Set-up or Clean-up Assistance-helper sets up or cleans up; patient completes activity. [place] assists only prior to or following the activity. 4-Supervision or Touching Assistance-helper provides verbal cues and/or touching/steadying and/or contact guard assistance as patient completes a ctivity. Assistance may be provided throughout the activity or intermittently. 3-Partial/Moderate Assistance-helper does LESS THAN HALF the effort. [place] lifts, holds or supports trunk or limbs, but provides less than half the effort. 2-Substantial/Maximal Assistance-helper does MORE THAN HALF the effort. [place] lifts or holds trunk or limbs and provides more than half the effort. 7-Oxedtztrz-bgfjik does ALL the effort. Patient does none of the effort to complete the activity. Or, the assistance of 2 or more helpers is required for the patient to complete the activity. If activity was not attempted, code reason: 7-Patient Refused. 9-Not Applicable-not attempted and the patient did not perform the activity before the current illness, exacerbation or injury. 10-Not Attempted due to Environmental Limitations-(lack of equipment, weather restraints, etc.). 88-Not Attempted due to Medical Conditions or Safety Concerns. Roll Left to Right (QC): 6 Sit to Lying (QC): 6 Sit to Stand (QC): 6 Chair/Zvl-in-Slefh Xfer(QC): 6 Car Transfer (QC): 3 Gait Training Does the Patient Walk?: Yes Distance: 15' Walk 10 feet (QC): 5 Walk 50 ft with 2 Turns(QC): 5 Walk 150 ft (QC): 88 Walking 10ft/uneven surface-QC: 88 Gait Persons Needed: 1 Gait Assistive Device: FWW Wheelchair Training Does the Pt Use a Wheelchair?: Yes Wheel 50 ft with 2 turns (QC): 1 Wheel 150 ft (QC): 1 Type of Wheelchair: Manual Stair Training 1 Step (curb) (QC): 88 4 Steps (QC): 88 12 Steps (QC): 88 Balance Picking up an Object (QC): 88 ADL-Treatment Eating (QC): 6 Oral Hygiene (QC): 6 Shower/Bathe Self (QC): 3 Upper Body Dressing (QC): 4 Lower Body Dressing (QC): 3 On/Off Footwear (QC): 2 Toileting Hygiene (QC): 3 Toilet Transfer (QC): 4 Assessment/Plan Assessment and Plan Assess & Plan/Chief Complaint Assessment: Debility New onset AF w/recent RVR Active wheezing AECOPD Hypoxia PNA s/p septic shock CHAZ HTN Hypoxemia Urinary retention 1/8/22 Volume overload giving Bumex per Dr Ford Dark stool Hemoccult + 10/14/[address] MARROQUIN and change PPI to twice daily and added Carafate and holding Xarelto Severely elevated white count without source checking C. difficile Presumed C diff colitis placed on Vanc PO but test negative? Stopping vancomycin p.o. now Plan: Monitor closely IV steroids IV abx DC cath tomorrow Supportive care 10/11/21: Monitor closely Cath DC 10/12/21: Doing extremely well Monitor closely 10/13/21: Lasix 20mgIV x [address] Colon Urinary retention management 10/14/2021: Check C. difficile Hold Xarelto PPI and Carafate 10/15/21: Appreciate Dr Ford Consult Dr Izaguirre 10/16/21: Vanc PO Monitor closely Complex case 10/17/21: Vanc PO C diff negative but still suspicious 10/18/21: Monitor wbc Decrease steroids Diuresis 10/19/2021: Supportive care Decrease steroids Continue diuresis 10/20/2021: Continue aggressive diuresis Supportive care (1) Acute heart failure with preserved ejection fraction (HFpEF) Assessment & Plan: He probably does have some volume overload, possibly in part related to volume resuscitation when he was first admitted to the hospital. I started him on intravenous diuretic on 10/15. His chest x-ray from 10/16 still shows bilateral pleural effusions. I increased his IV diuretic. His symptoms are slowly improving. We will need to watch his renal function closely. I will obtain a follow-up chest x-ray. (2) Paroxysmal atrial fibrillation Status: Acute Assessment & Plan: He initially was having sinus tachycardia and multifocal atrial tachycardia but towards the end of his acute hospitalization, he may have had at least a few episodes of atrial fibrillation. I placed the patient on rivaroxaban for stroke prophylaxis. He is on diltiazem for rate control. He seems to be remaining in sinus rhythm since being transferred to inpatient rehab. I discontinued telemetry last week. The atrial fibrillation may have been brought on by his acute, noncardiac illness when he was initially admitted. Due to his acute anemia and heme positive stool, rivaroxaban is now on hold. (3) Primary hypertension Status: Chronic Assessment & Plan: Blood pressures are reasonably controlled with the current dose of diltiazem which he is on due to atrial fibrillation. (4) Multifocal atrial tachycardia Status: Acute Assessment & Plan: As above, he was predominantly having multifocal atrial tachycardia. Now he is back in sinus rhythm. I recommend he continue on diltiazem. (5) Mixed hyperlipidemia Status: Chronic Assessment & Plan: Continue atorvastatin. (6) Acute kidney injury Status: Acute Assessment & Plan: His renal function now seems to have stabilized. We will need to monitor this closely with intravenous diuretic. FRANCISCO BHAKTA DO Oct 20, 2021 06:06
[2021-10-20] MEDS: BUMETANIDE 1 MG/4 ML (BUMEX) VIAL IV SCH ×2 (06:07→16:03)
[2021-10-20] MEDS: LACTOBACILLUS ACIDOPHILUS (PROBIOTIC) CAPSULE PO SCH ×4 (06:12→20:33)
[2021-10-20] MEDS: SUCRALFATE 1 GM (CARAFATE) TAB PO SCH ×4 (06:12→20:32)
[2021-10-20] MEDS: inSUlin ASPART (NovoLOG) 1 UNIT/0.01 ML (CHARGE PER UNIT) SC SCH ×4 (06:12→20:33)
[2021-10-20] MEDS: predniSONE 20 MG TAB PO SCH (06:13)
[2021-10-20 06:28] LABS: POTASSIUM 3.8 MMOL/L (3.6-5.0)
[2021-10-20 06:29] LABS: CALCIUM 7.8 MG/DL (8.5-10.1)
[2021-10-20 06:33] LABS: CREATININE SERUM 0.93 MG/DL (0.60-1.30)
[2021-10-20 07:41] VITALS: BP 116/56
[2021-10-20] MEDS: RT-ALBUTEROL/IPRATROPIUM 3 ML (DUONEB) VIAL INH SCH ×4 (08:11→19:41)
[2021-10-20] MEDS: RT-BUDESONIDE NEBS 0.5 MG/2ML (PULMICORT) AMP INH SCH ×2 (08:11→19:43)
[2021-10-20] MEDS: SENNA W/DOCUSATE (SENOKOT S) TABLET PO SCH ×2 (08:30→20:33)
[2021-10-20] MEDS: LORATADINE (CLARITIN) 10 MG TAB PO SCH (08:30)
[2021-10-20] MEDS: CAL. POLYCARBOPHIL 625 MG (FIBERCON) TAB PO SCH (08:30)
[2021-10-20] MEDS: DOCUSATE SODIUM 100 MG (COLACE) CAP PO SCH ×2 (08:30→20:33)
[2021-10-20] MEDS: TAMSULOSIN 0.4 MG (FLOMAX) CAP PO SCH ×2 (08:30→20:33)
[2021-10-20] MEDS: PANTOPRAZOLE 40 MG (PROTONIX) TAB PO SCH ×2 (08:30→20:33)
[2021-10-20] MEDS: polyethylene glycoL POWDER 17 GM (MIRALAX) PACK PO SCH ×2 (08:31→20:33)
[2021-10-20] MEDS: IRON SUCROSE 200 MG/10 ML (VENOFER) VIAL IV SCH (08:32)
[2021-10-20] MEDS: SENNOSIDES 8.6 MG (SENOKOT) TAB PO SCH ×2 (08:33→20:33)
--- NOTE | 2021-10-20 11:13 | Physical Therapy Daily Note ---
PT Daily Note-Current Subjective Pt up in recliner, agreeable to treatment. Pain Numeric Pain Scale: 0-No Pain Mental Status Patient Orientation: Person, Place Attachments: Oxygen, Bal Catheter O2 3L/min Transfers SCALE: Activities may be completed with or without assistive devices. 2-Kvyenekgez-pzlsggm completes the activity by him/herself with no assistance from a helper. 5-Set-up or Clean-up Assistance-helper sets up or cleans up; patient completes activity. [place] assists only prior to or following the activity. 4-Supervision or Touching Assistance-helper provides verbal cues and/or touching/steadying and/or contact guard assistance as patient completes activity. Assistance may be provided throughout the activity or intermittently. 3-Partial/Moderate Assistance-helper does LESS THAN HALF the effort. [place] lifts, holds or supports trunk or limbs, but provides less than half the effort. 2-Substantial/Maximal Assistance-helper does MORE THAN HALF the effort. [place] lifts or holds trunk or limbs and provides more than half the effort. 6-Tvzucjqgm-ggdnhj does ALL the effort. Patient does none of the effort to complete the activity. Or, the assistance of 2 or more helpers is required for the patient to complete the activity. If activity was not attempted, code reason: 7-Patient Refused. 9-Not Applicable-not attempted and the patient did not perform the activity before the current illness, exacerbation or injury. 10-Not Attempted due to Environmental Limitations-(lack of equipment, weather restraints, etc.). 88-Not Attempted due to Medical Conditions or Safety Concerns. Weight Bearing Right Lower Extremity: Right Weight Bearing/Tolerated Left Lower Extremity: Left Weight Bearing/Tolerated Gait Training Gait Assistive Device: FWW Pt amb in room 2 x 50ft with CGA, pt self managing O2 tubing without issue. Pt grows SOB with exertion, vc's for pursed lip breathing. Exercises Seated Therapy Exercises: Ankle pumps, Long arc quads, Hip flexion Seated Reps: 15 Assessment Current Status: Good Progress Pt suresh well with rest break between bouts of gait training. Pt SOB with exertion. Pt resting in recliner with call light and all needs met post therapy session. LE's elevated. O2 per nasal canula. PT Short Term Goals Short Term Goals Time Frame: Oct 17, 2021 Roll Left & Right: 6 Sit to lyin Lying to sitting on side of be: 4 Sit to stand: 4 (SBA) Chair/lwq-tv-pxpov transfer: 4 (SBA) Walk 10 feet: 4 Walk 50 feet with two turns: 4 Walk 150 feet: 4 PT Residential Goals Residential Goals PT Liquor Department Manager Goals Time Frame: Oct 31, 2021 Roll Left & Right (QC): 6 Sit to Lying (QC): 6 Lying-Sitting on Side/Bed(QC): 6 Sit to Stand (QC): 6 Chair/Sly-ss-Wtokz Xfer(QC): 6 Toilet Transfer (QC): 6 Car Transfer (QC): 3 Does the Patient Walk: Yes Walk 10 feet (QC): 6 Walk 50ft with 2 Turns (QC): 6 Walk 150 ft (QC): 6 Walking 10ft on Uneven Surface: 4 1 Step (curb) (QC): 4 4 Steps (QC): 4 12 Steps (QC): 88 Picking up an Object (QC): 4 Wheel 50 feet with 2 turns (QC: 9 Wheel 150 feet: 9 PT Plan Treatment/Plan Treatment Plan: Continue Plan of Care Treatment Plan: Bed Mobility, Education, Functional Activity Tatiana, Functional Strength, Group Therapy, Gait, Safety, Therapeutic Exercise, Transfers Treatment Duration: Oct 31, 2021 Frequency: At least 5 of 7 days/Wk (IRF) Estimated Hrs Per Day: 1.5 hours per day Patient and/or Family Agrees t: Yes Time/GCodes Time In: 833 Time Out: 850 Total Billed Treatment Time: 22 Total Billed Treatment 1, gait 15', ther ex 7' WOJCIECH PLASENCIA CPTYulia Oct 20, 2021 11:13
[2021-10-20] MEDS: LACTULOSE SYRUP 10GM/15ML (ENULOSE) 30ML UDC PO PRN (13:53)
--- NOTE | 2021-10-20 15:50 | Progress Note - Cardiology ---
Cardiology SOAP Progress Note Subjective: No cp or palp or syncope or shortness of breath at rest Gen weakness and malaise present No n/v/d Objective: I&O/Vital Signs 10/20/21 10/20/21 10/20/21 10/20/21 07:41 08:13 09:26 10:21 Temp 36.0 Pulse 78 Resp 16 B/P (MAP) 116/56 (76) Pulse Ox 92 96 96 O2 Delivery Nasal Cannula Nasal Cannula High Flow N/C Nasal Cannula O2 Flow Rate 3.00 3.00 3.00 3.00 10/20/21 14:50 Pulse Ox 98 O2 Delivery Nasal Cannula O2 Flow Rate 3.00 10/20/21 00:00 Intake Total 660 ml Output Total 1650 ml Balance -990 ml Constitutional: AAO x 3, well-developed, well-nourished Respiratory: No accessory muscle use; other (fair to good air entry that is dimished at the bases) Cardiovascular: regular rate-rhythm, S1 and S2 Gastrointestional: No tender; soft; No guarding, No rebound; audible bowel sounds Extremities: swelling (mild, bilat leg swelling), clubbing, cyanosis Neurologic/Psychiatric: oriented x 3, other (moves all limbs equally) Skin: No rash on exposed areas, No ulcerations on exposed areas Results/Procedures: Labs Laboratory Tests 10/19/21 16:03: Glucometer 122H 10/19/21 20:11: Glucometer 116H 10/20/21 06:10: Sodium Level 132L, Potassium Level 3.8, Chloride Level 97L, Carbon Dioxide Level 28, Anion Gap 7, Blood Urea Nitrogen 19H, Creatinine 0.93, Estimat Glomerular Filtration Rate 83, BUN/Creatinine Ratio 20, Glucose Level 91, Calcium Level 7.8L 10/20/21 06:11: Glucometer 92 10/20/21 10:56: Glucometer 162H 10/20/21 15:14: Glucometer 139H Microbiology 10/15/21 C. difficile DNA Amplification - Final, Complete Laboratory Tests 10/19/21 05:50 10/20/21 06:10 A/P: Assessment: HFpEF, treated with bumetanide PAF, stroke prohylaxis with rivaroxaban Htn, controlled Hyperlipidemia Recent pneumonia and sepsis, managed by Dr Chase Plan: * Continue bumetanide, monitor labs * Continue dilt for vent rate control during A Fib, and rivaroxaban for stroke prophylaxis ANJUM FARMER MD FACP FAC CCDS Oct 20, 2021 15:50
[2021-10-20] MEDS: BISACODYL 10 MG SUPP (DULCOLAX) PR PRN (17:35)
[2021-10-20 20:00] VITALS: BP 94/49
[2021-10-20] MEDS: MONTELUKAST 10 MG (SINGULAIR) TAB PO SCH (20:33)
[2021-10-21] MEDS: VANCOMYCIN 125 MG CAPSULE PO SCH ×2 (00:20→05:31)
[2021-10-21] MEDS: SUCRALFATE 1 GM (CARAFATE) TAB PO SCH ×4 (05:31→21:11)
[2021-10-21] MEDS: LACTOBACILLUS ACIDOPHILUS (PROBIOTIC) CAPSULE PO SCH ×4 (05:31→21:11)
[2021-10-21] MEDS: CATHETER FLUSH 10 ML SYR IV SCH ×3 (05:31→21:15)
--- NOTE | 2021-10-21 06:25 | PM&R Progress Note ---
Subjective HPI/CC On Admission Date Seen by Provider: Oct 21, 2021 Time Seen by Provider: 12:00 Subjective/Events-last exam 10/21/2021: Patient doing about the same Large BM after suppository but needs further evacuation Blood pressure a bit low due to 3 L of urinary output yesterday No Urecholine yet due to tenuous COPD status Checked meds and labs 10/20/2021: Patient dramatically improved Bumex 1 mg IV is now twice a day LIZZETTE hose ordered Breathing better 96% on 3 L Bal catheter will remain until Friday Bowel treatment will intensify Patient feels better 10/19/2021: Patient appears to be dramatically improved Overall less short of breath Cystoscopy revealed BPH Bal catheter replaced Working on bowels 10/18/21: EGD/Colonoscopy will be canceled Straight Catheter will be addressed by Dr. Izaguirre D/C isolation for C-Diff Vanc PO continues for now Bumex given daily Respiratory status is tenuous 10/17/21: Pt is doing pretty well C-diff was negative but I think the elevated white count and loose stools are still at risk for C-diff. Maintain Vancomycin PO Venofer iron infusions maintained EGD and colonoscopy for Friday Improved dyspnea with Bumex 10/16/21: Pt is very complicated Dr. Izaguirre will see him ABG could not be obtained Chest x-ray reveals the infiltrate pulmonary edema Remains on 3.5L of O2 Xarelto is on hold IV iron infusions maintained IV Bumex ordered by Cardiology 10/15/21: Pt is doing about the same Pt had a formed BM Can't do c.diff on formed bowels Dr. Ford to see for volume overload White count down to 30,000 Holding anticoagulation due to hemoccult positive stools and anemia Hemoglobin 8.1 10/14/2021: Patient feels better Elevated white count he is suspicious Dark stool was Hemoccult and it is positive Consulted Dr. MARROQUIN and ordered proton pump inhibitor twice daily and Carafate and holding Xarelto C. difficile will be ordered due to significantly elevated white blood cell count but no fever or any other findings of infectious source Check meds labs Very complex issues 10/13/2021: Patient doing better Oxygen down to 3 L Gave Lasix 20 mg IV after I conferred with Dr. Colon Edema noted Labs revealed white count elevated due to steroid effect Antibiotics still on board LIZZETTE gonzalez maintained Had BM yesterday Wheezing noted but no coarseness Urinary retention management 10/12/21: Pt dramatically improved Dr. Ford is monitoring Accapella is being used 4L of of O2 now Voiding well since Catheter removed Took a shower today he feels much better 10/11/21: Pt doing a lot better today Bowels are moving Catheter was discontinued Blood pressure is doing okay White count 20,000 from steroid Hemoglobin is 9.3 Remains on 4-6L of O2 and does increase with exertion Overall, much improved Review of Systems General: Fatigue, Malaise Pulmonary: Dyspnea Objective Exam Vital Signs Vital Signs Date Time Temp Pulse Resp B/P (MAP) Pulse Ox O2 Delivery O2 Flow Rate FiO2 10/22/21 04:47 96 Nasal Cannula 2.00 10/21/21 19:36 35.8 81 20 125/65 (85) Capillary Refill : General Appearance: No Apparent Distress, WD/WN, Anxious, Chronically ill HEENT: PERRL/EOMI, Normal ENT Inspection, Pharynx Normal Neck: Full Range of Motion, Normal Inspection, Non Tender, Supple, Carotid Bruit Respiratory: Chest Non Tender, Lungs Clear, Normal Breath Sounds, No Accessory Muscle Use, No Respiratory Distress Cardiovascular: Regular Rate, Rhythm, No Edema, No Gallop, No JVD, No Murmur, Normal Peripheral Pulses Gastrointestinal: Normal Bowel Sounds, No Organomegaly, No Pulsatile Mass, Non Tender, Soft Back: Normal Inspection, No CVA Tenderness, No Vertebral Tenderness Extremity: Normal Capillary Refill, Normal Inspection, Normal Range of Motion, Non Tender, No Calf Tenderness, No Pedal Edema Neurologic/Psychiatric: Alert, Oriented x3, No Motor/Sensory Deficits, Normal Mood/Affect Skin: Normal Color, Warm/Dry Lymphatic: No Adenopathy Results/Procedures Lab Laboratory Tests 10/22/21 04:25 Patient resulted labs reviewed. FIM Transfers Therapy Code Descriptions/Definitions Functional [place] Measure: 0=Not Assessed/NA 4=Minimal Assistance 1=Total Assistance 5=Supervision or Setup 2=Maximal Assistance 6=Modified [place] 3=Moderate Assistance 7=Complete IndependenceSCALE: Activities may be completed with or without assistive devices. 0-Wxobfwcuij-ftcdegr completes the activity by him/herself with no assistance from a helper. 5-Set-up or Clean-up Assistance-helper sets up or cleans up; patient completes activity. [place] assists only prior to or following the activity. 4-Supervision or Touching Assistance-helper provides verbal cues and/or touching/steadying and/or contact guard assistance as patient completes ac tivity. Assistance may be provided throughout the activity or intermittently. 3-Partial/Moderate Assistance-helper does LESS THAN HALF the effort. [place] lifts, holds or supports trunk or limbs, but provides less than half the effort. 2-Substantial/Maximal Assistance-helper does MORE THAN HALF the effort. [place] lifts or holds trunk or limbs and provides more than half the effort. 1-Wzxmxnpbr-oavykn does ALL the effort. Patient does none of the effort to complete the activity. Or, the assistance of 2 or more helpers is required for the patient to complete the activity. If activity was not attempted, code reason: 7-Patient Refused. 9-Not Applicable-not attempted and the patient did not perform the activity before the current illness, exacerbation or injury. 10-Not Attempted due to Environmental Limitations-(lack of equipment, weather restraints, etc.). 88-Not Attempted due to Medical Conditions or Safety Concerns. Roll Left to Right (QC): 6 Sit to Lying (QC): 6 Sit to Stand (QC): 6 Chair/Dmh-ph-Uauys Xfer(QC): 6 Car Transfer (QC): 3 Gait Training Does the Patient Walk?: Yes Distance: 15' Walk 10 feet (QC): 5 Walk 50 ft with 2 Turns(QC): 5 Walk 150 ft (QC): 88 Walking 10ft/uneven surface-QC: 88 Gait Persons Needed: 1 Gait Assistive Device: FWW Wheelchair Training Does the Pt Use a Wheelchair?: Yes Wheel 50 ft with 2 turns (QC): 1 Wheel 150 ft (QC): 1 Type of Wheelchair: Manual Stair Training 1 Step (curb) (QC): 88 4 Steps (QC): 88 12 Steps (QC): 88 Balance Picking up an Object (QC): 88 ADL-Treatment Eating (QC): 6 Oral Hygiene (QC): 6 Shower/Bathe Self (QC): 3 Upper Body Dressing (QC): 4 Lower Body Dressing (QC): 3 On/Off Footwear (QC): 2 Toileting Hygiene (QC): 3 Toilet Transfer (QC): 4 Assessment/Plan Assessment and Plan Assess & Plan/Chief Complaint Assessment: Debility New onset AF w/recent RVR Active wheezing AECOPD Hypoxia PNA s/p septic shock CHAZ HTN Hypoxemia Urinary retention 10/13/21 Volume overload giving Bumex per Dr Ford Dark stool Hemoccult + 10/14/[address] MARROQUIN and change PPI to twice daily and added Carafate and holding Xarelto Severely elevated white count without source checking C. difficile Presumed C diff colitis placed on Vanc PO but test negative? Stopping vancomycin p.o. now Plan: Monitor closely IV steroids IV abx DC cath tomorrow Supportive care 10/11/21: Monitor closely Cath DC 10/12/21: Doing extremely well Monitor closely 10/13/21: Lasix 20mgIV x [address] Colon Urinary retention management 10/14/2021: Check C. difficile Hold Xarelto PPI and Carafate 10/15/21: Appreciate Dr Ford Consult Dr Izaguirre 10/16/21: Vanc PO Monitor closely Complex case 10/17/21: Vanc PO C diff negative but still suspicious 10/18/21: Monitor wbc Decrease steroids Diuresis 10/19/2021: Supportive care Decrease steroids Continue diuresis 10/20/2021: Continue aggressive diuresis Supportive care 10/21/2021: Continue aggressive diuresis Monitor closely (1) Acute heart failure with preserved ejection fraction (HFpEF) Assessment & Plan: He probably does have some volume overload, possibly in part related to volume resuscitation when he was first admitted to the hospital. I started him on intravenous diuretic on 10/15. His chest x-ray from 10/16 still shows bilateral pleural effusions. I increased his IV diuretic. His symptoms are slowly improving. We will need to watch his renal function closely. I will obtain a follow-up chest x-ray. (2) Paroxysmal atrial fibrillation Status: Acute Assessment & Plan: He initially was having sinus tachycardia and multifocal atrial tachycardia but towards the end of his acute hospitalization, he may have had at least a few episodes of atrial fibrillation. I placed the patient on rivaroxaban for stroke prophylaxis. He is on diltiazem for rate control. He seems to be remaining in sinus rhythm since being transferred to inpatient rehab. I discontinued telemetry last week. The atrial fibrillation may have been brought on by his acute, noncardiac illness when he was initially admitted. Due to his acute anemia and heme positive stool, rivaroxaban is now on hold. (3) Primary hypertension Status: Chronic Assessment & Plan: Blood pressures are reasonably controlled with the current dose of diltiazem which he is on due to atrial fibrillation. (4) Multifocal atrial tachycardia Status: Acute Assessment & Plan: As above, he was predominantly having multifocal atrial tachycardia. Now he is back in sinus rhythm. I recommend he continue on diltiazem. (5) Mixed hyperlipidemia Status: Chronic Assessment & Plan: Continue atorvastatin. (6) Acute kidney injury Status: Acute Assessment & Plan: His renal function now seems to have stabilized. We will need to monitor this closely with intravenous diuretic. FRANCISCO BHAKTA DO Oct 21, 2021 06:25
[2021-10-21 06:30] VITALS: BP 120/58
[2021-10-21] MEDS: predniSONE 20 MG TAB PO SCH (06:31)
[2021-10-21] MEDS: inSUlin ASPART (NovoLOG) 1 UNIT/0.01 ML (CHARGE PER UNIT) SC SCH ×4 (06:32→21:14)
[2021-10-21] MEDS: BUMETANIDE 1 MG/4 ML (BUMEX) VIAL IV SCH ×2 (06:32→16:43)
[2021-10-21 07:26] VITALS: BP 121/57
[2021-10-21] MEDS: polyethylene glycoL POWDER 17 GM (MIRALAX) PACK PO SCH ×2 (08:44→21:14)
[2021-10-21] MEDS: DOCUSATE SODIUM 100 MG (COLACE) CAP PO SCH ×2 (08:44→21:11)
[2021-10-21] MEDS: SENNOSIDES 8.6 MG (SENOKOT) TAB PO SCH ×2 (08:44→21:11)
[2021-10-21] MEDS: CAL. POLYCARBOPHIL 625 MG (FIBERCON) TAB PO SCH (08:44)
[2021-10-21] MEDS: TAMSULOSIN 0.4 MG (FLOMAX) CAP PO SCH ×2 (08:44→21:11)
[2021-10-21] MEDS: LORATADINE (CLARITIN) 10 MG TAB PO SCH (08:44)
[2021-10-21] MEDS: SENNA W/DOCUSATE (SENOKOT S) TABLET PO SCH ×2 (08:44→21:11)
[2021-10-21] MEDS: PANTOPRAZOLE 40 MG (PROTONIX) TAB PO SCH ×2 (08:44→21:11)
[2021-10-21] MEDS: RT-ALBUTEROL/IPRATROPIUM 3 ML (DUONEB) VIAL INH SCH ×4 (09:49→21:30)
[2021-10-21] MEDS: RT-BUDESONIDE NEBS 0.5 MG/2ML (PULMICORT) AMP INH SCH ×2 (10:45→21:30)
--- NOTE | 2021-10-21 17:32 | Progress Note - Cardiology ---
Cardiology SOAP Progress Note Subjective: Gen weakness and malaise are improving No shortness of breath at rest No cp or palp or syncope Objective: I&O/Vital Signs 10/21/21 10/21/21 10/21/21 10/21/21 06:30 07:26 09:07 10:46 Temp 36.4 Pulse 78 89 Resp 18 B/P (MAP) 120/58 (78) 121/57 (78) Pulse Ox 95 97 O2 Delivery Nasal Cannula High Flow N/C Nasal Cannula O2 Flow Rate 3.00 3.00 3.00 10/21/21 00:00 Intake Total 780 ml Output Total 3050 ml Balance -2270 ml Constitutional: AAO x 3, well-developed, well-nourished Respiratory: No accessory muscle use; other (fair to good air entry that is dimished at the bases) Cardiovascular: regular rate-rhythm, S1 and S2 Gastrointestional: No tender; soft; No guarding, No rebound; audible bowel sounds Extremities: swelling (mild, bilat leg swelling), clubbing, cyanosis Neurologic/Psychiatric: oriented x 3, other (moves all limbs equally) Skin: No rash on exposed areas, No ulcerations on exposed areas Results/Procedures: Labs Laboratory Tests 10/20/21 20:18: Glucometer 140H 10/21/21 05:58: Glucometer 78 10/21/21 08:53: Glucometer 201H 10/21/21 11:06: Glucometer 182H 10/21/21 15:29: Glucometer 119H Microbiology 10/15/21 C. difficile DNA Amplification - Final, Complete Laboratory Tests 10/20/21 06:10 A/P: Assessment: HFpEF, treated with bumetanide PAF, stroke prohylaxis with rivaroxaban Htn, controlled Hyperlipidemia Recent pneumonia and sepsis, managed by Dr Chase Plan: * Continue bumetanide, monitor labs * Continue dilt for vent rate control during A Fib, and rivaroxaban for stroke prophylaxis * Repeat labs tomorrow ANJUM FARMER MD FACP FAC CCDS Oct 21, 2021 17:32
[2021-10-21 19:36] VITALS: BP 125/65
[2021-10-21] MEDS: MONTELUKAST 10 MG (SINGULAIR) TAB PO SCH (21:11)
[2021-10-22 04:37] LABS: BASOPHILS % (AUTO) 0 % (0-10); EOSINOPHILS # (AUTO) 0.1 10^3/uL (0.0-0.3); EOSINOPHILS % (AUTO) 0 % (0-10); HEMATOCRIT 26 % (40-54); HEMOGLOBIN 8.1 g/dL (13.3-17.7); LYMPHOCYTES # (AUTO) 1.6 10^3/uL (1.0-4.0); LYMPHOCYTES % (AUTO) 9 % (12-44); MEAN CORPUSCULAR HEMOGLOBIN 29 pg (25-34); MEAN CORPUSCULAR HGB CONC 31 g/dL (32-36); MEAN CORPUSCULAR VOLUME 91 fL (80-99); MEAN PLATELET VOLUME 9.6 fL (9.0-12.2); MONOCYTES # (AUTO) 1.3 10^3/uL (0.0-1.0); MONOCYTES % (AUTO) 7 % (0-12); NEUTROPHILS # (AUTO) 14.2 10^3/uL (1.8-7.8); NEUTROPHILS % (AUTO) 81 % (42-75); PLATELET COUNT 518 10^3/uL (130-400); WHITE BLOOD COUNT 17.5 10^3/uL (4.3-11.0)
[2021-10-22 05:10] LABS: ALBUMIN 2.8 GM/DL (3.2-4.5)
[2021-10-22 05:12] LABS: CALCIUM 8.5 MG/DL (8.5-10.1)
[2021-10-22 05:13] LABS: TOTAL PROTEIN 4.9 GM/DL (6.4-8.2)
[2021-10-22 05:15] LABS: BILIRUBIN,TOTAL 0.3 MG/DL (0.1-1.0)
[2021-10-22 05:17] LABS: CREATININE SERUM 1.16 MG/DL (0.60-1.30)
[2021-10-22 05:20] LABS: MAGNESIUM 2.1 MG/DL (1.6-2.4)
[2021-10-22] MEDS: inSUlin ASPART (NovoLOG) 1 UNIT/0.01 ML (CHARGE PER UNIT) SC SCH ×5 (05:29→21:56)
[2021-10-22] MEDS: CATHETER FLUSH 10 ML SYR IV SCH ×3 (05:41→22:03)
[2021-10-22] MEDS: SUCRALFATE 1 GM (CARAFATE) TAB PO SCH ×4 (05:41→21:53)
[2021-10-22] MEDS: LACTOBACILLUS ACIDOPHILUS (PROBIOTIC) CAPSULE PO SCH ×4 (05:41→21:53)
[2021-10-22] MEDS: BUMETANIDE 1 MG/4 ML (BUMEX) VIAL IV SCH ×2 (06:16→17:07)
[2021-10-22] MEDS: predniSONE 20 MG TAB PO SCH (06:16)
[2021-10-22 07:17] VITALS: BP 125/65
[2021-10-22] MEDS: RT-ALBUTEROL/IPRATROPIUM 3 ML (DUONEB) VIAL INH SCH (07:17)
[2021-10-22] MEDS: RT-BUDESONIDE NEBS 0.5 MG/2ML (PULMICORT) AMP INH SCH (07:18)
[2021-10-22 07:25] VITALS: BP 115/58
[2021-10-22] MEDS: IRON SUCROSE 200 MG/10 ML (VENOFER) VIAL IV SCH (07:25)
[2021-10-22] MEDS: TAMSULOSIN 0.4 MG (FLOMAX) CAP PO SCH ×2 (07:25→21:53)
[2021-10-22] MEDS: LORATADINE (CLARITIN) 10 MG TAB PO SCH (07:25)
[2021-10-22] MEDS: SENNOSIDES 8.6 MG (SENOKOT) TAB PO SCH ×2 (07:26→21:58)
[2021-10-22] MEDS: PANTOPRAZOLE 40 MG (PROTONIX) TAB PO SCH ×2 (07:26→21:53)
[2021-10-22] MEDS: CAL. POLYCARBOPHIL 625 MG (FIBERCON) TAB PO SCH (07:26)
[2021-10-22] MEDS: DOCUSATE SODIUM 100 MG (COLACE) CAP PO SCH ×2 (07:27→21:56)
[2021-10-22] MEDS: polyethylene glycoL POWDER 17 GM (MIRALAX) PACK PO SCH ×2 (08:28→21:58)
[2021-10-22] MEDS: SENNA W/DOCUSATE (SENOKOT S) TABLET PO SCH ×2 (08:28→21:58)
--- NOTE | 2021-10-22 08:30 | Cardiology Progress Note ---
Progress Note-Cardiology Events since last exam Date Seen by Provider: Oct 22, 2021 Time Seen by Provider: 08:29 Events since last exam I am following him due to heart failure with preserved ejection fraction. He continues on intravenous bumetanide twice daily. His peripheral edema is much better. He still gets fairly short of breath with activity. Just moving around in his room makes him short of breath. However, he states this is his baseline prior to admission. He denies chest pain, palpitations, or syncope. He does not wear oxygen at home but continues on oxygen here. Certain portions of this document may have been dictated utilizing voice recognition technology. Inherent to this technology, typographical and grammatical errors may exist. As much as I am diligent to identify and correct these mistakes, some errors may remain in the document. Vitals Last set of Vitals Signs Vital Signs 10/22/21 10/22/21 07:17 07:25 Temp 36.4 Pulse 93 Resp 20 B/P (MAP) 115/58 (77) Pulse Ox 95 O2 Delivery Nasal Cannula O2 Flow Rate 3.00 FiO2 2 Labs Labs Laboratory Tests 10/22/21 04:25 Exam Vital Signs Vital Signs Date Time Temp Pulse Resp B/P (MAP) Pulse Ox O2 Delivery O2 Flow Rate FiO2 10/22/21 07:25 36.4 93 20 115/58 (77) 95 Nasal Cannula 3.00 10/22/21 07:17 2 Physical Exam General: Alert. No acute distress. Eye: No xanthelasma. HENT: Normocephalic. Neck: Jugular venous pressure does not appear elevated. Respiratory: Lungs are clear to auscultation with improved bibasilar aeration but decreased breath sounds at the right base. Respirations are non-labored. Breath sounds are equal. Symmetrical chest wall expansion. Cardiovascular: Normal rate. Regular rhythm. No murmur. No gallop. 1+ bilateral pretibial edema. Gastrointestinal: Soft. Normal bowel sounds. Skin: Warm. Dry. Neurologic: Alert and oriented to person, place, time. Cranial nerves 3-11 grossly intact. Psychiatric: Cooperative. Appropriate mood & affect. Labs Laboratory Tests Test 10/21/21 08:53 10/21/21 11:06 10/21/21 15:29 10/21/21 20:07 Range/Units Glucometer 201 H 182 H 119 H 122 H 70-110 MG/DL Test 10/22/21 04:25 Range/Units White Blood Count 17.5 H 4.3-11.0 10^3/uL Red Blood Count 2.84 L 4.30-5.52 10^6/uL Hemoglobin 8.1 L 13.3-17.7 g/dL Hematocrit 26 L 40-54 % Mean Corpuscular Volume 91 80-99 fL Mean Corpuscular Hemoglobin 29 25-34 pg Mean Corpuscular Hemoglobin Concent 31 L 32-36 g/dL Red Cell Distribution Width 17.8 H 10.0-14.5 % Platelet Count 518 H 130-400 10^3/uL Mean Platelet Volume 9.6 9.0-12.2 fL Immature Granulocyte % (Auto) 2 % Neutrophils (%) (Auto) 81 H 42-75 % Lymphocytes (%) (Auto) 9 L 12-44 % Monocytes (%) (Auto) 7 0-12 % Eosinophils (%) (Auto) 0 0-10 % Basophils (%) (Auto) 0 0-10 % Neutrophils # (Auto) 14.2 H 1.8-7.8 10^3/uL Lymphocytes # (Auto) 1.6 1.0-4.0 10^3/uL Monocytes # (Auto) 1.3 H 0.0-1.0 10^3/uL Eosinophils # (Auto) 0.1 0.0-0.3 10^3/uL Basophils # (Auto) 0.0 0.0-0.1 10^3/uL Immature Granulocyte # (Auto) 0.4 H 0.0-0.1 10^3/uL Sodium Level 133 L 135-145 MMOL/L Potassium Level 4.0 3.6-5.0 MMOL/L Chloride Level 96 L 98-107 MMOL/L Carbon Dioxide Level 29 21-32 MMOL/L Anion Gap 8 5-14 MMOL/L Blood Urea Nitrogen 20 H 7-18 MG/DL Creatinine 1.16 0.60-1.30 MG/DL Estimat Glomerular Filtration Rate 64 BUN/Creatinine Ratio 17 Glucose Level 88 70-105 MG/DL Calcium Level 8.5 8.5-10.1 MG/DL Corrected Calcium 9.5 8.5-10.1 MG/DL Magnesium Level 2.1 1.6-2.4 MG/DL Total Bilirubin 0.3 0.1-1.0 MG/DL Aspartate Amino Transf (AST/SGOT) 17 5-34 U/L Alanine Aminotransferase (ALT/SGPT) 38 0-55 U/L Alkaline Phosphatase 85 40-136 U/L Total Protein 4.9 L 6.4-8.2 GM/DL Albumin 2.8 L 3.2-4.5 GM/DL Diagnosis/Problems Diagnosis/Problems (1) Acute heart failure with preserved ejection fraction (HFpEF) Assessment & Plan: He probably does have some volume overload, possibly in part related to volume resuscitation when he was first admitted to the hospital. I started him on intravenous diuretic on 10/15. His chest x-ray from 10/16 still showed bilateral pleural effusions. His symptoms continue to gradually improve and his edema is almost resolved. There has been little change in his renal function. I have ordered a follow-up chest x-ray for today. He may need home oxygen when he is ready for discharge. (2) Paroxysmal atrial fibrillation Status: Acute Assessment & Plan: He initially was having sinus tachycardia and multifocal atrial tachycardia but towards the end of his acute hospitalization, he may have had at least a few episodes of atrial fibrillation. I placed the patient on rivaroxaban for stroke prophylaxis. He is on diltiazem for rate control. He se ems to be remaining in sinus rhythm since being transferred to inpatient rehab. I discontinued telemetry last week. The atrial fibrillation may have been brought on by his acute, noncardiac illness when he was initially admitted. Due to his acute anemia and heme positive stool, rivaroxaban is now on hold. (3) Primary hypertension Status: Chronic Assessment & Plan: Blood pressures are reasonably controlled with the current dose of diltiazem which he is on due to atrial fibrillation. (4) Multifocal atrial tachycardia Status: Acute Assessment & Plan: As above, he was predominantly having multifocal atrial tachycardia when he was first admitted to the acute hospital. Now he is back in sinus rhythm. I recommend he continue on diltiazem. (5) Mixed hyperlipidemia Status: Chronic Assessment & Plan: Continue atorvastatin. (6) Acute kidney injury Status: Acute Assessment & Plan: His renal function now seems to have stabilized. We will need to monitor this closely with intravenous diuretic. SHERRI CHO JR, MD Oct 22, 2021 08:30
--- NOTE | 2021-10-22 09:47 | Progress Note - Urology ---
Progress Note-Urology Progress Notes/Assess & Plan Progress/Assessment & Plan ON BUMEX BID. WE WILL POSTPONE TOV TO [facility] TOMORROW. DR BHAKTA DID NO OK URECHOLINE ON FRIDAY Final Diagnosis RETENTION ATILIO WILSON MD Oct 22, 2021 09:47
--- NOTE | 2021-10-22 09:59 | Occupational Ther Daily Note ---
OT Current Status-Daily Note Subjective Pt reports feeling slightly better as he was able to have a BM this weekend. Appearance Left sitting in recliner, all needs within reach. Mental Status/Objective Patient Orientation: Person, Place, Time, Situation ADL-Treatment Therapy Code Descriptions/Definitions Functional [place] Measure: 0=Not Assessed/NA 4=Minimal Assistance 1=Total Assistance 5=Supervision or Setup 2=Maximal Assistance 6=Modified [place] 3=Moderate Assistance 7=Complete IndependenceSCALE: Activities may be completed with or without assistive devices. 3-Uifpipflef-gslonlx completes the activity by him/herself with no assistance from a helper. 5-Set-up or Clean-up Assistance-helper sets up or cleans up; patient completes activity. [place] assists only prior to or following the activity. 4-Supervision or Touching Assistance-helper provides verbal cues and/or touching/steadying and/or contact guard assistance as patient completes activity. Assistance may be provided throughout the activity or intermittently. 3-Partial/Moderate Assistance-helper does LESS THAN HALF the effort. [place] lifts, holds or supports trunk or limbs, but provides less than half the effort. 2-Substantial/Maximal Assistance-helper does MORE THAN HALF the effort. [place] lifts or holds trunk or limbs and provides more than half the effort. 6-Nwdmgggoi-clrajs does ALL the effort. Patient does none of the effort to complete the activity. Or, the assistance of 2 or more helpers is required for the patient to complete the activity. If activity was not attempted, code reason: 7-Patient Refused. 9-Not Applicable-not attempted and the patient did not perform the activity before the current illness, exacerbation or injury. 10-Not Attempted due to Environmental Limitations-(lack of equipment, weather restraints, etc.). 88-Not Attempted due to Medical Conditions or Safety Concerns. Oral Hygiene (QC): 5 Shower/Bathe Self (QC): 4 Lower Body Dressing (QC): 4 Toileting Hygiene (QC): 4 Toilet Transfer (QC): 4 Pt requests to defer donning clothes secondary to receiving multiple stool softeners and fearful he will not make it toilet in time.He did attempt to have a bowel movement during this session but was unsuccessful. Partial sponge bath performed sitting at sink. Pt washed upper body with set up only. Anticipate min a needed if he washed lower body. Pt continues to need Several rest breaks due to SOA with exertion but appears to tolerate better than last therapy session. Good recall on use of net making supervisor to thread feet into brief. Steadying assist required as he stood to pull brief up to waist. LE's begin to tremble after ~90 seconds of standing. New gown donned. Pt sat to shave and brush teeth, set up only. Other Treatment Pt stood to complete word search puzzle. Goal to improve standing tolerance, LE strength, and pulmonary function needed for adls and transfers. Pt stood x3; longest standing time was 3:24. Lengthy rest breaks needed after each standing bout. Pt's LE's do begin to tremble after ~90 seconds of standing. Cues for PLB during activity. Education OT Patient Education: Correct positioning, Energy conservation, Modified ADL techniques, Progress toward Goal/Update tx plan, Purpose of tx/functional activities, Rehab process, Safety issues, W/C management Teaching Recipient: Patient Teaching Methods: Demonstration, Discussion Response to Teaching: Verbalize Understanding, Return Demonstration OT Short Term Goals Short Term Goals Time Frame: Oct 19, 2021 Eatin Oral hygiene: 5 Toileting hygiene: 4 Shower/bathe self: 4 Upper body dressin Lower body dressin Putting on/taking off footwear: 4 OT Long-Term Goals Chef Broiler Or Fry Goals Time Frame: Oct 26, 2021 Eating (QC): 6 Oral Hygiene (QC): 6 Toileting Hygiene (QC): 6 Shower/Bathe Self (QC): 5 Upper Body Dressing (QC): 5 Lower Body Dressing (QC): 5 On/Off Footwear (QC): 5 1=Demonstrate adherence to instructed precautions during ADL tasks. 2=Patient will verbalize/demonstrate understanding of assistive device s/modifications for ADL. 3=Patient will improve strength/tolerance for activity to enable patient to perform ADL's. OT Education/Plan Problem List/Assessment Assessment: Decreased Activ Tolerance, Decreased UE Strength, Edema, Impaired Funct Balance, Impaired I ADL's, Impaired Self-Care Skills, Restricted Funct UE ROM Discharge Recommendations Plan/Recommendations: Continue POC Therapy Discharge Recommendati: Post Acute OT Treatment Plan/Plan of Care Treatment,Training & Education: Yes Patient would benefit from OT for education, treatment and training to promote independence in ADL's, mobility, safety and/or upper extremity function for ADL's. Plan of Care: ADL Retraining, Functional Mobility, Group Exercise/Act as Ind, UE Funct Exercise/Act, W/C Management Training Treatment Duration: Oct 26, 2021 Frequency: At least 5 of 7 days/Wk (IRF) Estimated Hrs Per Day: 1.5 hours per day Agreement: Yes Rehab Potential: Fair Time/GCodes Start Time: 09:00 Stop Time: 10:00 Total Time Billed (hr/min): 60 Billed Treatment Time 1 visit ADL x3 (45 min) FA (15 min) Tamiko Fox OT Oct 22, 2021 09:59
--- NOTE | 2021-10-22 10:17 | PM&R Progress Note ---
Subjective HPI/CC On Admission Date Seen by Provider: Oct 22, 2021 Time Seen by Provider: 10:00 Subjective/Events-last exam 10/22/2021: Patient doing much better Bal catheter remains Had a lot of output after Bumex Bowels moved yesterday Lower extremity edema improved White blood cell count coming down to 17.5 Hemoglobin 8.1 10/21/2021: Patient doing about the same Large BM after suppository but needs further evacuation Blood pressure a bit low due to 3 L of urinary output yesterday No Urecholine yet due to tenuous COPD status Checked meds and labs 10/20/2021: Patient dramatically improved Bumex 1 mg IV is now twice a day LIZZETTE hose ordered Breathing better 96% on 3 L Bal catheter will remain until Friday Bowel treatment will intensify Patient feels better 10/19/2021: Patient appears to be dramatically improved Overall less short of breath Cystoscopy revealed BPH Bal catheter replaced Working on bowels 10/18/21: EGD/Colonoscopy will be canceled Straight Catheter will be addressed by Dr. Izaguirre D/C isolation for C-Diff Vanc PO continues for now Bumex given daily Respiratory status is tenuous 10/17/21: Pt is doing pretty well C-diff was negative but I think the elevated white count and loose stools are still at risk for C-diff. Maintain Vancomycin PO Venofer iron infusions maintained EGD and colonoscopy for Friday Improved dyspnea with Bumex 10/16/21: Pt is very complicated Dr. Izaguirre will see him ABG could not be obtained Chest x-ray reveals the infiltrate pulmonary edema Remains on 3.5L of O2 Xarelto is on hold IV iron infusions maintained IV Bumex ordered by Cardiology 10/15/21: Pt is doing about the same Pt had a formed BM Can't do c.diff on formed bowels Dr. Ford to see for volume overload White count down to 30,000 Holding anticoagulation due to hemoccult positive stools and anemia Hemoglobin 8.1 10/14/2021: Patient feels better Elevated white count he is suspicious Dark stool was Hemoccult and it is positive Consulted Dr. MARROQUIN and ordered proton pump inhibitor twice daily and Carafate and holding Xarelto C. difficile will be ordered due to significantly elevated white blood cell count but no fever or any other findings of infectious source Check meds labs Very complex issues 10/13/2021: Patient doing better Oxygen down to 3 L Gave Lasix 20 mg IV after I conferred with Dr. Colon Edema noted Labs revealed white count elevated due to steroid effect Antibiotics still on board LIZZETTE gonzalez maintained Had BM yesterday Wheezing noted but no coarseness Urinary retention management 10/12/21: Pt dramatically improved Dr. Ford is monitoring Accapella is being used 4L of of O2 now Voiding well since Catheter removed Took a shower today he feels much better 10/11/21: Pt doing a lot better today Bowels are moving Catheter was discontinued Blood pressure is doing okay White count 20,000 from steroid Hemoglobin is 9.3 Remains on 4-6L of O2 and does increase with exertion Overall, much improved Review of Systems General: Fatigue, Malaise Pulmonary: Dyspnea Cardiovascular: Edema Objective Exam Vital Signs Vital Signs Date Time Temp Pulse Resp B/P (MAP) Pulse Ox O2 Delivery O2 Flow Rate FiO2 10/22/21 21:55 95 High Flow N/C 2.00 10/22/21 20:00 36.4 90 20 100/56 (71) 10/22/21 07:17 2 Capillary Refill : General Appearance: No Apparent Distress, WD/WN, Anxious, Chronically ill HEENT: PERRL/EOMI, Normal ENT Inspection, Pharynx Normal Neck: Full Range of Motion, Normal Inspection, Non Tender, Supple, Carotid Bruit Respiratory: Chest Non Tender, Lungs Clear, Normal Breath Sounds, No Accessory Muscle Use, No Respiratory Distress Cardiovascular: Regular Rate, Rhythm, No Edema, No Gallop, No JVD, No Murmur, Normal Peripheral Pulses Gastrointestinal: Normal Bowel Sounds, No Organomegaly, No Pulsatile Mass, Non Tender, Soft Back: Normal Inspection, No CVA Tenderness, No Vertebral Tenderness Extremity: Normal Capillary Refill, Normal Inspection, Normal Range of Motion, Non Tender, No Calf Tenderness, No Pedal Edema Neurologic/Psychiatric: Alert, Oriented x3, No Motor/Sensory Deficits, Normal Mood/Affect Skin: Normal Color, Warm/Dry Lymphatic: No Adenopathy Results/Procedures Lab Patient resulted labs reviewed. FIM Transfers Therapy Code Descriptions/Definitions Functional [place] Measure: 0=Not Assessed/NA 4=Minimal Assistance 1=Total Assistance 5=Supervision or Setup 2=Maximal Assistance 6=Modified [place] 3=Moderate Assistance 7=Complete IndependenceSCALE: Activities may be completed with or without assistive devices. 5-Uabkfhvhtk-owiagqi completes the activity by him/herself with no assistance from a helper. 5-Set-up or Clean-up Assistance-helper sets up or cleans up; patient completes activity. [place] assists only prior to or following the activity. 4-Supervision or Touching Assistance-helper provides verbal cues and/or touching/steadying and/or contact guard assistance as patient completes activity. Assistance may be provided throughout the activity or intermittently. 3-Partial/Moderate Assistance-helper does LESS THAN HALF the effort. [place] lifts, holds or supports trunk or limbs, but provides less than half the effort. 2-Substantial/Maximal Assistance-helper does MORE THAN HALF the effort. [place] lifts or holds trunk or limbs and provides more than half the effort. 7-Oblkkdioo-nkoehu does ALL the effort. Patient does none of the effort to complete the activity. Or, the assistance of 2 or more helpers is required for the patient to complete the activity. If activity was not attempted, code reason: 7-Patient Refused. 9-Not Applicable-not attempted and the patient did not perform the activity be fore the current illness, exacerbation or injury. 10-Not Attempted due to Environmental Limitations-(lack of equipment, weather restraints, etc.). 88-Not Attempted due to Medical Conditions or Safety Concerns. Roll Left to Right (QC): 6 Sit to Lying (QC): 6 Sit to Stand (QC): 6 Chair/Auy-yl-Fknvn Xfer(QC): 6 Car Transfer (QC): 3 Gait Training Does the Patient Walk?: Yes Distance: 15' Walk 10 feet (QC): 5 Walk 50 ft with 2 Turns(QC): 5 Walk 150 ft (QC): 88 Walking 10ft/uneven surface-QC: 88 Gait Persons Needed: 1 Gait Assistive Device: FWW Wheelchair Training Does the Pt Use a Wheelchair?: Yes Wheel 50 ft with 2 turns (QC): 1 Wheel 150 ft (QC): 1 Type of Wheelchair: Manual Stair Training 1 Step (curb) (QC): 88 4 Steps (QC): 88 12 Steps (QC): 88 Balance Picking up an Object (QC): 88 ADL-Treatment Eating (QC): 6 Oral Hygiene (QC): 5 Shower/Bathe Self (QC): 4 Upper Body Dressing (QC): 4 Lower Body Dressing (QC): 4 On/Off Footwear (QC): 2 Toileting Hygiene (QC): 4 Toilet Transfer (QC): 4 Assessment/Plan Assessment and Plan Assess & Plan/Chief Complaint Assessment: Debility New onset AF w/recent RVR Active wheezing AECOPD Hypoxia PNA s/p septic shock CHAZ HTN Hypoxemia Urinary retention 10/13/21 Volume overload giving Bumex per Dr Ford Dark stool Hemoccult + 10/14/[address] MARROQUIN and change PPI to twice daily and added Carafate and holding Xarelto Severely elevated white count without source checking C. difficile Presumed C diff colitis placed on Vanc PO but test negative? Stopping vancomycin p.o. now Plan: Monitor closely IV steroids IV abx DC cath tomorrow Supportive care 10/11/21: Monitor closely Cath DC 10/12/21: Doing extremely well Monitor closely 10/13/21: Lasix 20mgIV x [address] Colon Urinary retention management 10/14/2021: Check C. difficile Hold Xarelto PPI and Carafate 10/15/21: Appreciate Dr Ford Consult Dr Izaguirre 10/16/21: Vanc PO Monitor closely Complex case 10/17/21: Vanc PO C diff negative but still suspicious 10/18/21: Monitor wbc Decrease steroids Diuresis 10/19/2021: Supportive care Decrease steroids Continue diuresis 10/20/2021: Continue aggressive diuresis Supportive care 10/21/2021: Continue aggressive diuresis Monitor closely 10/22/2021: Supportive care Monitor electrolytes (1) Acute heart failure with preserved ejection fraction (HFpEF) Assessment & Plan: He probably does have some volume overload, possibly in part related to volume resuscitation when he was first admitted to the hospital. I started him on intravenous diuretic on 10/15. His chest x-ray from 10/16 still showed bilateral pleural effusions. His symptoms continue to gradually improve and his edema is almost resolved. There has been little change in his renal function. I have ordered a follow-up chest x-ray for today. He may need home oxygen when he is ready for discharge. (2) Paroxysmal atrial fibrillation Status: Acute Assessment & Plan: He initially was having sinus tachycardia and multifocal atrial tachycardia but towards the end of his acute hospitalization, he may have had at least a few episodes of atrial fibrillation. I placed the patient on rivaroxaban for stroke prophylaxis. He is on diltiazem for rate control. He seems to be remaining in sinus rhythm since being transferred to inpatient rehab. I discontinued telemetry last week. The atrial fibrillation may have been brought on by his acute, noncardiac illness when he was initially admitted. Due to his acute anemia and heme positive stool, rivaroxaban is now on hold. (3) Primary hypertension Status: Chronic Assessment & Plan: Blood pressures are reasonably controlled with the current dose of diltiazem which he is on due to atrial fibrillation. (4) Multifocal atrial tachycardia Status: Acute Assessment & Plan: As above, he was predominantly having multifocal atrial tachycardia when he was first admitted to the acute hospital. Now he is back in sinus rhythm. I recommend he continue on diltiazem. (5) Mixed hyperlipidemia Status: Chronic Assessment & Plan: Continue atorvastatin. (6) Acute kidney injury Status: Acute Assessment & Plan: His renal function now seems to have stabilized. We will need to monitor this closely with intravenous diuretic. FRANCISCO BHAKTA DO Oct 22, 2021 10:17
[2021-10-22] MEDS: polyethylene glycoL POWDER 17 GM (MIRALAX) PACK PO PRN (11:18)
--- NOTE | 2021-10-22 11:58 | Physical Therapy Daily Note ---
PT Daily Note-Current Subjective Pt. sitting up in recliner, agrees to tx but states he is uncomfortable b/c he needs to have a BM. Nurse brings miralax . Pt. declines going out of room as he is afraid/hoping his bowels will move soon. Pt. c/o only of fatigue with activity ad some SOB with activity that recovers with rest. Pt. also expresses that he hopes to have "this catheter thing resolved soon" Pain Location: No Pain Reported Mental Status Patient Orientation: Normal For Age Attachments: Oxygen, Bal Catheter Transfers SCALE: Activities may be completed with or without assistive devices. 5-Oxygpnnoqu-cfkalrs completes the activity by him/herself with no assistance from a helper. 5-Set-up or Clean-up Assistance-helper sets up or cleans up; patient completes activity. [place] assists only prior to or following the activity. 4-Supervision or Touching Assistance-helper provides verbal cues and/or touching/steadying and/or contact guard assistance as patient completes activity. Assistance may be provided throughout the activity or intermittently. 3-Partial/Moderate Assistance-helper does LESS THAN HALF the effort. [place] lifts, holds or supports trunk or limbs, but provides less than half the effort. 2-Substantial/Maximal Assistance-helper does MORE THAN HALF the effort. [place] lifts or holds trunk or limbs and provides more than half the effort. 4-Bjsrcibdc-allmdi does ALL the effort. Patient does none of the effort to complete the activity. Or, the assistance of 2 or more helpers is required for the patient to complete the activity. If activity was not attempted, code reason: 7-Patient Refused. 9-Not Applicable-not attempted and the patient did not perform the activity before the current illness, exacerbation or injury. 10-Not Attempted due to Environmental Limitations-(lack of equipment, weather restraints, etc.). 88-Not Attempted due to Medical Conditions or Safety Concerns. Sit to Stand (QC): 5 Chair/Olx-up-Spcst Xfer(QC): 5 modified sit to stand test at 30 sec with pt. stopping at 23 seconds and 16 sit to stands using hands on chair arms Weight Bearing Right Lower Extremity: Right Weight Bearing/Tolerated Left Lower Extremity: Left Weight Bearing/Tolerated Gait Training Does the Patient Walk?: Yes Walk 10 feet (QC): 5 Walk 50 ft with 2 Turns(QC): 5 Gait Persons Needed: 1 Gait Assistive Device: FWW emphasis this Tx on walking in small spaces with use of extended O2 tubing safely. Pt.ambulated 60 ft x 4 with O2 at 2.5 L and c/o fatigue at approx 60 ft ad needed rest breaks. O2 sats remain > 90% each trial Exercises Supine Ex: Ankle pumps, Quad Set, Glut sets, Heel Slides, Straight leg raise, Hip abd/add Supine Reps: 12 (x2) Seated Therapy Exercises: Ankle pumps, Sit to stand, Long arc quads, Hip flexion, Hip abd/add Seated Reps: 15 Treatments therex sup and sit, gait instructing in safety in use of extended O2 tubing Assessment Current Status: Good Progress PT Short Term Goals Short Term Goals Time Frame: Oct 17, 2021 Roll Left & Right: 6 Sit to lyin Lying to sitting on side of be: 4 Sit to stand: 4 (SBA) Chair/gbt-ry-bzdrb transfer: 4 (SBA) Walk 10 feet: 4 Walk 50 feet with two turns: 4 Walk 150 feet: 4 PT Retirement Goals [employer] Driver Goals PT [employer] Driver Goals Time Frame: Oct 31, 2021 Roll Left & Right (QC): 6 Sit to Lying (QC): 6 Lying-Sitting on Side/Bed(QC): 6 Sit to Stand (QC): 6 Chair/Lvm-uv-Gqxbs Xfer(QC): 6 Toilet Transfer (QC): 6 Car Transfer (QC): 3 Does the Patient Walk: Yes Walk 10 feet (QC): 6 Walk 50ft with 2 Turns (QC): 6 Walk 150 ft (QC): 6 Walking 10ft on Uneven Surface: 4 1 Step (curb) (QC): 4 4 Steps (QC): 4 12 Steps (QC): 88 Picking up an Object (QC): 4 Wheel 50 feet with 2 turns (QC: 9 Wheel 150 feet: 9 PT Plan Treatment/Plan Treatment Plan: Continue Plan of Care Treatment Plan: Bed Mobility, Education, Functional Activity Tatiana, Functional Strength, Group Therapy, Gait, Safety, Therapeutic Exercise, Transfers Treatment Duration: Oct 31, 2021 Frequency: At least 5 of 7 days/Wk (IRF) Estimated Hrs Per Day: 1.5 hours per day Patient and/or Family Agrees t: Yes Safety Risks/Education Patient Education: Gait Training, Transfer Techniques, Correct Positioning, Disease Process, Safety Issues Teaching Recipient: Patient Teaching Methods: Demonstration, Discussion Response to Teaching: Verbalize Understanding, Return Demonstration, Reinforcement Needed Time/GCodes Time In: 1100 Time Out: 1200 Total Billed Treatment Time: 60 Total Billed Treatment 1,EX30m,FA10m,GT20m STEPHANI MOTTA BEAN PICKER MACHINE OPERATOR Oct 22, 2021 11:58
--- NOTE | 2021-10-22 13:26 | Diagnostic Imaging Report ---
INDICATION: CHF. TIME OF EXAM: 11:06 a.m. COMPARISON: Correlation is made with prior chest from 10/19/2021. FINDINGS: Heart size is stable. There has been improved aeration to the left base. Infiltrates in the right mid and lower lung field persist. Pleural effusions do appear to be improved and are now small. There is no pneumothorax. IMPRESSION: Improving bilateral effusions as well as improved aeration to the left lung base. There continues to be moderate amount of infiltrate in the right mid and lower lung field. Dictated by: Dictated on workstation # [id number]
--- NOTE | 2021-10-22 13:29 | Occupational Ther Daily Note ---
OT Current Status-Daily Note Subjective Pt reports significant fatigue as he just returned from having large BM Appearance Pt left sitting in chair, all needs within reach at OT departure ADL-Treatment Therapy Code Descriptions/Definitions Functional [place] Measure: 0=Not Assessed/NA 4=Minimal Assistance 1=Total Assistance 5=Supervision or Setup 2=Maximal Assistance 6=Modified [place] 3=Moderate Assistance 7=Complete IndependenceSCALE: Activities may be completed with or without assistive devices. 8-Spsfhuabsl-mksjvzb completes the activity by him/herself with no assistance from a helper. 5-Set-up or Clean-up Assistance-helper sets up or cleans up; patient completes activity. [place] assists only prior to or following the activity. 4-Supervision or Touching Assistance-helper provides verbal cues and/or touching/steadying and/or contact guard assistance as patient completes activity. Assistance may be provided throughout the activity or intermittently. 3-Partial/Moderate Assistance-helper does LESS THAN HALF the effort. [place] lifts, holds or supports trunk or limbs, but provides less than half the effort. 2-Substantial/Maximal Assistance-helper does MORE THAN HALF the effort. [place] lifts or holds trunk or limbs and provides more than half the effort. 1-Rlxhplwnz-bimdsc does ALL the effort. Patient does none of the effort to complete the activity. Or, the assistance of 2 or more helpers is required for the patient to complete the activity. If activity was not attempted, code reason: 7-Patient Refused. 9-Not Applicable-not attempted and the patient did not perform the activity before the current illness, exacerbation or injury. 10-Not Attempted due to Environmental Limitations-(lack of equipment, weather restraints, etc.). 88-Not Attempted due to Medical Conditions or Safety Concerns. Other Treatment Pt reports significant fatigue and SOA as he just returned from bathroom. He states he had a large amount of liquid stool and he is now wore out. Agreeable to UE AROM exercises to promote increased endurance, strength, and pulmonary function needed for adls and transfers. Min cues for proper breathing techniques as pt has tendency to hold breath. R active shoulder flexion to ~150 degrees and Left ~90 degrees. AAROM L to ~120 degrees. Rest break needed after each exercise. 10 x1 in all planes. Less edema notable this date. Education OT Patient Education: Correct positioning, Exercise program, Progress toward Goal/Update tx plan, Purpose of tx/functional activities Teaching Recipient: Patient Teaching Methods: Discussion Response to Teaching: Verbalize Understanding, Return Demonstration, Reinforcement Needed OT Short Term Goals Short Term Goals Time Frame: Oct 19, 2021 Eatin Oral hygiene: 5 Toileting hygiene: 4 Shower/bathe self: 4 Upper body dressin Lower body dressin Putting on/taking off footwear: 4 OT Marriage And Family Therapist Goals Skilled Nursing Goals Time Frame: Oct 26, 2021 Eating (QC): 6 Oral Hygiene (QC): 6 Toileting Hygiene (QC): 6 Shower/Bathe Self (QC): 5 Upper Body Dressing (QC): 5 Lower Body Dressing (QC): 5 On/Off Footwear (QC): 5 1=Demonstrate adherence to instructed precautions during ADL tasks. 2=Patient will verbalize/demonstrate understanding of assistive devices/modifications for ADL. 3=Patient will improve strength/tolerance for activity to enable patient to perform ADL's. OT Education/Plan Problem List/Assessment Assessment: Decreased Activ Tolerance, Decreased UE Strength, Edema, Impaired Funct Balance, Impaired I ADL's, Impaired Self-Care Skills, Restricted Funct UE ROM Discharge Recommendations Plan/Recommendations: Continue POC Treatment Plan/Plan of Care Treatment,Training & Education: Yes Patient would benefit from OT for education, treatment and training to promote independence in ADL's, mobility, safety and/or upper extremity function for ADL's. Plan of Care: ADL Retraining, Functional Mobility, Group Exercise/Act as Ind, UE Funct Exercise/Act, W/C Management Training Treatment Duration: Oct 26, 2021 Frequency: At least 5 of 7 days/Wk (IRF) Estimated Hrs Per Day: 1.5 hours per day Agreement: Yes Rehab Potential: Fair Time/GCodes Start Time: 12:55 Stop Time: 13:25 Total Time Billed (hr/min): 30 Billed Treatment Time 1 visit EX Tamiko Lawrence OT Oct 22, 2021 13:29
[2021-10-22 20:00] VITALS: BP 100/56
[2021-10-22] MEDS: MONTELUKAST 10 MG (SINGULAIR) TAB PO SCH (21:53)
[2021-10-23] MEDS: RT-ALBUTEROL/IPRATROPIUM 3 ML (DUONEB) VIAL INH SCH ×3 (02:33→18:58)
[2021-10-23] MEDS: RT-BUDESONIDE NEBS 0.5 MG/2ML (PULMICORT) AMP INH SCH ×3 (02:33→18:58)
[2021-10-23] MEDS: inSUlin ASPART (NovoLOG) 1 UNIT/0.01 ML (CHARGE PER UNIT) SC SCH (06:00)
[2021-10-23 06:29] LABS: CALCIUM 8.5 MG/DL (8.5-10.1); CREATININE SERUM 1.11 MG/DL (0.60-1.30); POTASSIUM 3.9 MMOL/L (3.6-5.0)
[2021-10-23] MEDS: CATHETER FLUSH 10 ML SYR IV SCH ×3 (06:35→21:59)
[2021-10-23] MEDS: predniSONE 20 MG TAB PO SCH (06:36)
[2021-10-23] MEDS: SUCRALFATE 1 GM (CARAFATE) TAB PO SCH ×4 (06:36→21:56)
[2021-10-23] MEDS: BUMETANIDE 1 MG/4 ML (BUMEX) VIAL IV SCH ×2 (06:36→16:20)
[2021-10-23] MEDS: LACTOBACILLUS ACIDOPHILUS (PROBIOTIC) CAPSULE PO SCH ×4 (06:36→21:56)
[2021-10-23 07:44] VITALS: BP 115/53
[2021-10-23] MEDS: CAL. POLYCARBOPHIL 625 MG (FIBERCON) TAB PO SCH (08:03)
[2021-10-23] MEDS: LORATADINE (CLARITIN) 10 MG TAB PO SCH (08:03)
[2021-10-23] MEDS: DOCUSATE SODIUM 100 MG (COLACE) CAP PO SCH ×2 (08:03→21:57)
[2021-10-23] MEDS: SENNOSIDES 8.6 MG (SENOKOT) TAB PO SCH ×2 (08:03→21:58)
[2021-10-23] MEDS: TAMSULOSIN 0.4 MG (FLOMAX) CAP PO SCH ×2 (08:03→21:56)
[2021-10-23] MEDS: PANTOPRAZOLE 40 MG (PROTONIX) TAB PO SCH ×2 (08:03→21:56)
[2021-10-23] MEDS: polyethylene glycoL POWDER 17 GM (MIRALAX) PACK PO SCH ×2 (08:04→21:58)
--- NOTE | 2021-10-23 08:43 | PM&R Progress Note ---
Subjective HPI/CC On Admission Date Seen by Provider: Oct 23, 2021 Time Seen by Provider: 10:00 Subjective/Events-last exam 10/23/21: Pt is doing a lot better but he thinks he is getting worse Functionally he is very slow to recover Scopes could be performed by Dr. Teague soon Discontinue accuchecks and discontinue Prednisone Lungs sound really good today Very negative and flat affect 10/22/2021: Patient doing much better Bal catheter remains Had a lot of output after Bumex Bowels moved yesterday Lower extremity edema improved White blood cell count coming down to 17.5 Hemoglobin 8.1 10/21/2021: Patient doing about the same Large BM after suppository but needs further evacuation Blood pressure a bit low due to 3 L of urinary output yesterday No Urecholine yet due to tenuous COPD status Checked meds and labs 10/20/2021: Patient dramatically improved Bumex 1 mg IV is now twice a day LIZZETTE hose ordered Breathing better 96% on 3 L Bal catheter will remain until Friday Bowel treatment will intensify Patient feels better 10/19/2021: Patient appears to be dramatically improved Overall less short of breath Cystoscopy revealed BPH Bal catheter replaced Working on bowels 10/18/21: EGD/Colonoscopy will be canceled Straight Catheter will be addressed by Dr. Izaguirre D/C isolation for C-Diff Vanc PO continues for now Bumex given daily Respiratory status is tenuous 10/17/21: Pt is doing pretty well C-diff was negative but I think the elevated white count and loose stools are still at risk for C-diff. Maintain Vancomycin PO Venofer iron infusions maintained EGD and colonoscopy for Friday Improved dyspnea with Bumex 10/16/21: Pt is very complicated Dr. Izaguirre will see him ABG could not be obtained Chest x-ray reveals the infiltrate pulmonary edema Remains on 3.5L of O2 Xarelto is on hold IV iron infusions maintained IV Bumex ordered by Cardiology 10/15/21: Pt is doing about the same Pt had a formed BM Can't do c.diff on formed bowels Dr. Ford to see for volume overload White count down to 30,000 Holding anticoagulation due to hemoccult positive stools and anemia Hemoglobin 8.1 10/14/2021: Patient feels better Elevated white count he is suspicious Dark stool was Hemoccult and it is positive Consulted Dr. TEAGUE and ordered proton pump inhibitor twice daily and Carafate and holding Xarelto C. difficile will be ordered due to significantly elevated white blood cell count but no fever or any other findings of infectious source Check meds labs Very complex issues 10/13/2021: Patient doing better Oxygen down to 3 L Gave Lasix 20 mg IV after I conferred with Dr. Colon Edema noted Labs revealed white count elevated due to steroid effect Antibiotics still on board LIZZETTE gonzalez maintained Had BM yesterday Wheezing noted but no coarseness Urinary retention management 10/12/21: Pt dramatically improved Dr. Ford is monitoring Accapella is being used 4L of of O2 now Voiding well since Catheter removed Took a shower today he feels much better 10/11/21: Pt doing a lot better today Bowels are moving Catheter was discontinued Blood pressure is doing okay White count 20,000 from steroid Hemoglobin is 9.3 Remains on 4-6L of O2 and does increase with exertion Overall, much improved Review of Systems General: Fatigue Pulmonary: Dyspnea Objective Exam Vital Signs Vital Signs Date Time Temp Pulse Resp B/P (MAP) Pulse Ox O2 Delivery O2 Flow Rate FiO2 10/23/21 21:00 95 High Flow N/C 2.00 10/23/21 19:39 36.6 75 16 110/56 (74) 10/22/21 07:17 2 Capillary Refill : General Appearance: No Apparent Distress, WD/WN, Anxious, Chronically ill HEENT: PERRL/EOMI, Normal ENT Inspection, Pharynx Normal Neck: Full Range of Motion, Normal Inspection, Non Tender, Supple, Carotid Bruit Respiratory: Chest Non Tender, Lungs Clear, Normal Breath Sounds, No Accessory Muscle Use, No Respiratory Distress Cardiovascular: Regular Rate, Rhythm, No Edema, No Gallop, No JVD, No Murmur, Normal Peripheral Pulses Gastrointestinal: Normal Bowel Sounds, No Organomegaly, No Pulsatile Mass, Non Tender, Soft Back: Normal Inspection, No CVA Tenderness, No Vertebral Tenderness Extremity: Normal Capillary Refill, Normal Inspection, Normal Range of Motion, Non Tender, No Calf Tenderness, No Pedal Edema Neurologic/Psychiatric: Alert, Oriented x3, No Motor/Sensory Deficits, Normal Mood/Affect Skin: Normal Color, Warm/Dry Lymphatic: No Adenopathy Results/Procedures Lab Laboratory Tests 10/23/21 05:53 Patient resulted labs reviewed. FIM Transfers Therapy Code Descriptions/Definitions Functional [place] Measure: 0=Not Assessed/NA 4=Minimal Assistance 1=Total Assistance 5=Supervision or Setup 2=Maximal Assistance 6=Modified [place] 3=Moderate Assistance 7=Complete IndependenceSCALE: Activities may be completed with or without assistive devices. 6-Yccuzkfmzl-vzmerhh completes the activity by him/herself with no assistance from a helper. 5-Set-up or Clean-up Assistance-helper sets up or cleans up; patient completes activity. [place] assists only prior to or following the activity. 4-Supervision or Touching Assistance-helper provides verbal cues and/or touching/steadying and/or contact guard assistance as patient completes activity. Assistance may be provided throughout the activity or intermittently. 3-Partial/Moderate Assistance-helper does LESS THAN HALF the effort. [place] lifts, holds or supports trunk or limbs, but provides less than half the effort. 2-Substantial/Maximal Assistance-helper does MORE THAN HALF the effort. [place] lifts or holds trunk or limbs and provides more than half the effort. 1-Zmbqdmxvn-qwzeuw does ALL the effort. Patient does none of the effort to complete the activity. Or, the assistance of 2 or more helpers is required for the patient to complete the activity. If activity was not attempted, code reason: 7-Patient Refused. 9-Not Applicable-not attempted and the patient did not perform the activity before the current illness, exacerbation or injury. 10-Not Attempted due to Environmental Limitations-(lack of equipment, weather restraints, etc.). 88-Not Attempted due to Medical Conditions or Safety Concerns. Roll Left to Right (QC): 6 Sit to Lying (QC): 6 Sit to Stand (QC): 5 Chair/Ikm-cl-Rycfs Xfer(QC): 5 Car Transfer (QC): 3 Gait Training Does the Patient Walk?: Yes Distance: 15' Walk 10 feet (QC): 5 Walk 50 ft with 2 Turns(QC): 5 Walk 150 ft (QC): 88 Walking 10ft/uneven surface-QC: 88 Gait Persons Needed: 1 Gait Assistive Device: FWW Wheelchair Training Does the Pt Use a Wheelchair?: Yes Wheel 50 ft with 2 turns (QC): 1 Wheel 150 ft (QC): 1 Type of Wheelchair: Manual Stair Training 1 Step (curb) (QC): 88 4 Steps (QC): 88 12 Steps (QC): 88 Balance Picking up an Object (QC): 88 ADL-Treatment Eating (QC): 6 Oral Hygiene (QC): 5 Shower/Bathe Self (QC): 4 Upper Body Dressing (QC): 4 Lower Body Dressing (QC): 4 On/Off Footwear (QC): 2 Toileting Hygiene (QC): 4 Toilet Transfer (QC): 4 Assessment/Plan Assessment and Plan Assess & Plan/Chief Complaint Assessment: Debility New onset AF w/recent RVR Active wheezing AECOPD Hypoxia PNA s/p septic shock CHAZ HTN Hypoxemia Urinary retention 10/13/21 Volume overload giving Bumex per Dr Ford Dark stool Hemoccult + 10/14/[address] TEAGUE and change PPI to twice daily and added Carafate and holding Xarelto Severely elevated white count without source checking C. difficile Presumed C diff colitis placed on Vanc PO but test negative? Stopping vancomycin p.o. now Plan: Monitor closely IV steroids IV abx DC cath tomorrow Supportive care 10/11/21: Monitor closely Cath DC 10/12/21: Doing extremely well Monitor closely 10/13/21: Lasix 20mgIV x [address] Colon Urinary retention management 10/14/2021: Check C. difficile Hold Xarelto PPI and Carafate 10/15/21: Appreciate Dr Ford Consult Dr Izaguirre 10/16/21: Vanc PO Monitor closely Complex case 10/17/21: Vanc PO C diff negative but still suspicious 10/18/21: Monitor wbc Decrease steroids Diuresis 10/19/2021: Supportive care Decrease steroids Continue diuresis 10/20/2021: Continue aggressive diuresis Supportive care 10/21/2021: Continue aggressive diuresis Monitor closely 10/22/2021: Supportive care Monitor electrolytes 10/23/21: Monitor progress Scopes soon OAC after scopes (1) Acute heart failure with preserved ejection fraction (HFpEF) Assessment & Plan: He probably does have some volume overload, possibly in part related to volume resuscitation when he was first admitted to the hospital. I started him on intravenous diuretic on 10/15. His chest x-ray from 10/16 still showed bilateral pleural effusions. His symptoms continue to gradually improve and his edema is almost resolved. There has been little change in his renal function. I have ordered a follow-up chest x-ray for today. He may need home oxygen when he is ready for discharge. (2) Paroxysmal atrial fibrillation Status: Acute Assessment & Plan: He initially was having sinus tachycardia and multifocal atrial tachycardia but towards the end of his acute hospitalization, he may have had at least a few episodes of atrial fibrillation. I placed the patient on rivaroxaban for stroke prophylaxis. He is on diltiazem for rate control. He seems to be remaining in sinus rhythm since being transferred to inpatient rehab. I discontinued telemetry last week. The atrial fibrillation may have been brought on by his acute, noncardiac illness when he was initially admitted. Due to his acute anemia and heme positive stool, rivaroxaban is now on hold. (3) Primary hypertension Status: Chronic Assessment & Plan: Blood pressures are reasonably controlled with the current dose of diltiazem which he is on due to atrial fibrillation. (4) Multifocal atrial tachycardia Status: Acute Assessment & Plan: As above, he was predominantly having multifocal atrial tachycardia when he was first admitted to the acute hospital. Now he is back in sinus rhythm. I recommend he continue on diltiazem. (5) Mixed hyperlipidemia Status: Chronic Assessment & Plan: Continue atorvastatin. (6) Acute kidney injury Status: Acute Assessment & Plan: His renal function now seems to have stabilized. We will need to monitor this closely with intravenous diuretic. FRANCISCO BHAKTA DO Oct 23, 2021 08:43
[2021-10-23] MEDS ORDERED: MAGNESIUM CITRATE 300 ML BTL PO ONE ×2 (08:45→11:30)
--- NOTE | 2021-10-23 09:05 | Occupational Ther Daily Note ---
OT Current Status-Daily Note Subjective Pt reports that today is the worst day he has felt since arriving to the hospital. Co-treat with PT for part of session ([id number]) due to poor activity tolerance, increased weakness, and need of 2 skilled clinicians to progress mobility and adls. Mental Status/Objective Patient Orientation: Person, Place, Time, Situation Attachments: IV, Oxygen ADL-Treatment Therapy Code Descriptions/Definitions Functional [place] Measure: 0=Not Assessed/NA 4=Minimal Assistance 1=Total Assistance 5=Supervision or Setup 2=Maximal Assistance 6=Modified [place] 3=Moderate Assistance 7=Complete IndependenceSCALE: Activities may be completed with or without assistive devices. 5-Zqbffxtsqt-dibsuwl completes the activity by him/herself with no assistance from a helper. 5-Set-up or Clean-up Assistance-helper sets up or cleans up; patient completes activity. [place] assists only prior to or following the activity. 4-Supervision or Touching Assistance-helper provides verbal cues and/or touching/steadying and/or contact guard assistance as patient completes activity. Assistance may be provided throughout the activity or intermittently. 3-Partial/Moderate Assistance-helper does LESS THAN HALF the effort. [place] lifts, holds or supports trunk or limbs, but provides less than half the effort. 2-Substantial/Maximal Assistance-helper does MORE THAN HALF the effort. [place] lifts or holds trunk or limbs and provides more than half the effort. 9-Vpezghzuo-bcxcsn does ALL the effort. Patient does none of the effort to complete the activity. Or, the assistance of 2 or more helpers is required for the patient to complete the activity. If activity was not attempted, code reason: 7-Patient Refused. 9-Not Applicable-not attempted and the patient did not perform the activity before the current illness, exacerbation or injury. 10-Not Attempted due to Environmental Limitations-(lack of equipment, weather restraints, etc.). 88-Not Attempted due to Medical Conditions or Safety Concerns. Oral Hygiene (QC): 5 Upper Body Dressing (QC): 3 On/Off Footwear: 1 Toileting Hygiene (QC): 3 Toilet Transfer (QC): 3 Pt sat at sink to brush teeth and wash face, set up only. Pt continues to decline donning clothing due to fear of not making it to the bathroom in time and soiling his clothes. New gown donned. Full body shaking exhibited when fatigue increases. Cues for PLB and relaxation. Assist required to don tylor hose and socks. Pt on 2L oxygen throughout session. Labored breathing exhibited with exertion. Difficulty getting accurate reading from finger pulse ox. Other Treatment Pt reports that today is the worst day he has felt since being admitted to the hospital. He reports increased breathing difficulties as well as difficulty standing. Pt complains about being constipated despite having large amounts of liquid stools yesterday. Pt participated in standing activity (pvc pipe) with goal to improve standing tolerance, LE strength, UE ROM/strength and pulmonary function needed for adls and transfers. Pt stood x3; longest standing time was 2:10. CGA for safety while standing. Intermittent min a under elbow when reaching overhead due to UE weakness. Pt fatigues very quickly and exhibits labored breathing/SOA with exertion. Lengthy rest breaks needed after each standing bout. Cues for PLB during activity. When fatigue worsens, pt requires extra lifting assist from seated position this date. Education OT Patient Education: Correct positioning, Energy conservation, Modified ADL techniques, Progress toward Goal/Update tx plan, Purpose of tx/functional activities, Rehab process, Safety issues, Transfer techniques Teaching Recipient: Patient Teaching Methods: Demonstration, Discussion Response to Teaching: Verbalize Understanding, Reinforcement Needed OT Short Term Goals Short Term Goals Time Frame: Oct 19, 2021 Eatin Oral hygiene: 5 Toileting hygiene: 4 Shower/bathe self: 4 Upper body dressin Lower body dressin Putting on/taking off footwear: 4 OT Penitentiary Goals Penitentiary Goals Time Frame: Oct 26, 2021 Eating (QC): 6 Oral Hygiene (QC): 6 Toileting Hygiene (QC): 6 Shower/Bathe Self (QC): 5 Upper Body Dressing (QC): 5 Lower Body Dressing (QC): 5 On/Off Footwear (QC): 5 1=Demonstrate adherence to instructed precautions during ADL tasks. 2=Patient will verbalize/demonstrate understanding of assistive devices/modifications for ADL. 3=Patient will improve strength/tolerance for activity to enable patient to perform ADL's. OT Education/Plan Problem List/Assessment Assessment: Decreased Activ Tolerance, Decreased UE Strength, Edema, Impaired Funct Balance, Impaired I ADL's, Impaired Self-Care Skills, Restricted Funct UE ROM Discharge Recommendations Plan/Recommendations: Continue POC Treatment Plan/Plan of Care Treatment,Training & Education: Yes Patient would benefit from OT for education, treatment and training to promote independence in ADL's, mobility, safety and/or upper extremity function for ADL's. Plan of Care: ADL Retraining, Functional Mobility, Group Exercise/Act as Ind, UE Funct Exercise/Act, W/C Management Training Treatment Duration: Oct 26, 2021 Frequency: At least 5 of 7 days/Wk (IRF) Estimated Hrs Per Day: 1.5 hours per day Agreement: Yes Rehab Potential: Fair Time/GCodes Start Time: 08:25 Stop Time: 09:15 Total Time Billed (hr/min): 50 Billed Treatment Time 1 visit ADL (20 min) FA x2 (30 min) Tamiko Fox OT Oct 23, 2021 09:05
--- NOTE | 2021-10-23 09:06 | Physical Therapy Daily Note ---
PT Daily Note-Current Subjective Pt in recliner upon arrival and agrees to PT. Says he isn't having any pain this date but he is constipated again. Says he feels bloated. Co-treat with PT for part of session ([id number]) due to poor activity tolerance, increased weakness, and need of 2 skilled clinicians to progress mobility and adls. Mental Status Patient Orientation: Person, Place, Time, Normal For Age Attachments: Oxygen (2L) Transfers SCALE: Activities may be completed with or without assistive devices. 6-Ytnkygyyuk-xshgvpy completes the activity by him/herself with no assistance from a helper. 5-Set-up or Clean-up Assistance-helper sets up or cleans up; patient completes activity. [place] assists only prior to or following the activity. 4-Supervision or Touching Assistance-helper provides verbal cues and/or touching/steadying and/or contact guard assistance as patient completes a ctivity. Assistance may be provided throughout the activity or intermittently. 3-Partial/Moderate Assistance-helper does LESS THAN HALF the effort. [place] lifts, holds or supports trunk or limbs, but provides less than half the effort. 2-Substantial/Maximal Assistance-helper does MORE THAN HALF the effort. [place] lifts or holds trunk or limbs and provides more than half the effort. 8-Pyeyytnss-kmmnkb does ALL the effort. Patient does none of the effort to complete the activity. Or, the assistance of 2 or more helpers is required for the patient to complete the activity. If activity was not attempted, code reason: 7-Patient Refused. 9-Not Applicable-not attempted and the patient did not perform the activity before the current illness, exacerbation or injury. 10-Not Attempted due to Environmental Limitations-(lack of equipment, weather restraints, etc.). 88-Not Attempted due to Medical Conditions or Safety Concerns. Sit to Stand (QC): 4 Towards end of tx pt requires Marisa for sit to stand d/t fatigue Weight Bearing Right Lower Extremity: Right Weight Bearing/Tolerated Left Lower Extremity: Left Weight Bearing/Tolerated Gait Training Does the Patient Walk?: Yes Distance: 75' x 2, 50' x 1 Walk 10 feet (QC): 4 Walk 50 ft with 2 Turns(QC): 4 Gait Persons Needed: 1 Gait Assistive Device: FWW slow gait pattern w/ decreased stride length. Pt becomes very fatigued this date and requires prolonged rest breaks between bouts of amb. Exercises Supine Ex: Ankle pumps, Quad Set, Glut sets Supine Reps: 15 Seated Therapy Exercises: Long arc quads Seated Reps: 20 Standing: Sit to Stand Standing Reps: 10 Treatments Pt in recliner performs supine and seated exs and then performs sit to stand w/ CGA/SBA and amb into holcomb 75' then needs rest break. Following rest break pt amb another 75' then needs prolonged rest break. Pt then amb back to room and TFs to recliner. Pt participated in standing activity (pvc pipe) with goal to improve standing tolerance, LE strength, UE ROM/strength and pulmonary function needed for adls and transfers. Pt stood x3; longest standing time was 2:10. CGA for safety while standing. Intermittent min a under elbow when reaching overhead due to UE weakness. Pt fatigues very quickly and exhibits labored breathing/SOA with exertion. Lengthy rest breaks needed after each standing bout. Cues for PLB during activity. When fatigue worsens, pt requires extra lifting assist from s eated position this date.PT then departs and all needs met OT still present. Assessment Current Status: Good Progress Pt becomes very fatigued this date and SOB during and after amb and dynamic standing activity. 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 PT Petroleum Plant Operator Goals Time Frame: Oct 31, 2021 Roll Left & Right (QC): 6 Sit to Lying (QC): 6 Lying-Sitting on Side/Bed(QC): 6 Sit to Stand (QC): 6 Chair/Kir-fr-[place] Xfer(QC): 6 Toilet Transfer (QC): 6 Car Transfer (QC): 3 Does the Patient Walk: Yes Walk 10 feet (QC): 6 Walk 50ft with 2 Turns (QC): 6 Walk 150 ft (QC): 6 Walking 10ft on Uneven Surface: 4 1 Step (curb) (QC): 4 4 Steps (QC): 4 12 Steps (QC): 88 Picking up an Object (QC): 4 Wheel 50 feet with 2 turns (QC: 9 Wheel 150 feet: 9 PT Plan Problem List Problem List: Activity Tolerance, Functional Strength, Safety Treatment/Plan Treatment Plan: Continue Plan of Care Treatment Plan: Bed Mobility, Education, Functional Activity Tatiana, Functional Strength, Group Therapy, Gait, Safety, Therapeutic Exercise, Transfers Treatment Duration: Oct 31, 2021 Frequency: At least 5 of 7 days/Wk (IRF) Estimated Hrs Per Day: 1.5 hours per day Patient and/or Family Agrees t: Yes Safety Risks/Education Patient Education: Gait Training, Transfer Techniques, Correct Positioning Teaching Recipient: Patient Teaching Methods: Discussion Response to Teaching: Return Demonstration Time/GCodes Time In: 800 Time Out: 900 Total Billed Treatment Time: 60 Total Billed Treatment 1, Ex x 3 45 min, GT 15min ARIAS PETERS PTA Oct 23, 2021 09:06
[2021-10-23] MEDS: SENNA W/DOCUSATE (SENOKOT S) TABLET PO SCH ×2 (09:15→21:58)
--- NOTE | 2021-10-23 11:00 | Progress Note ---
Subjective Date Seen by a Provider: Oct 23, 2021 Time Seen by a Provider: 10:30 Subjective/Events-last exam doing better from respiratory status. hb stable however low. will proceed with prep today and schedule EGD and colonoscopy for tomorrow with MAC anesthesia. Objective Exam Vital Signs Date Time Temp Pulse Resp B/P (MAP) Pulse Ox O2 Delivery O2 Flow Rate FiO2 10/23/21 09:28 98 High Flow N/C 2.00 10/23/21 07:56 96 High Flow N/C 2.00 10/23/21 07:53 96 High Flow N/C 2.00 10/23/21 07:44 36.4 80 22 115/53 (73) 90 Nasal Cannula 3.00 10/22/21 21:55 95 High Flow N/C 2.00 10/22/21 20:00 36.4 90 20 100/56 (71) 95 I & O 10/23/21 07:00 Intake Total 1750 ml Output Total 3700 ml Balance -1950 ml Capillary Refill : General Appearance: No Apparent Distress HEENT: PERRL/EOMI Neck: Full Range of Motion Respiratory: Chest Non Tender, Decreased Breath Sounds Cardiovascular: Regular Rate, Rhythm Gastrointestinal: normal bowel sounds, non tender, soft Extremity: Normal Capillary Refill Neurologic/Psychiatric: Alert, Oriented x3 Skin: Normal Color Lymphatic: No Adenopathy Results Lab Laboratory Tests 10/22/21 11:07: Glucometer 179H 10/22/21 15:45: Glucometer 142H 10/22/21 20:30: Glucometer 162H 10/23/21 05:53: Sodium Level 134L, Potassium Level 3.9, Chloride Level 94L, Carbon Dioxide Level 29, Anion Gap 11, Blood Urea Nitrogen 22H, Creatinine 1.11, Estimat Glomerular Filtration Rate 67, BUN/Creatinine Ratio 20, Glucose Level 85, Calcium Level 8.5 Microbiology 10/15/21 C. difficile DNA Amplification - Final, Complete Assessment/Plan Assessment/Plan Assess & Plan/Chief Complaint anemia with bilat pnuemonia. prep today and EGD and colonoscopy for tomorrow(tuesday 10/24) EDVIN MARROQUIN MD Oct 23, 2021 11:00
--- NOTE | 2021-10-23 11:04 | Progress Note-Pre Operative ---
Pre-Operative Progress Note H&P Reviewed The H&P was reviewed, patient examined and no changes noted. Date Seen by Provider: Oct 23, 2021 Time Seen by Provider: 11:30 Date H&P Reviewed: Oct 19, 2021 Time H&P Reviewed: 11:30 Pre-Operative Diagnosis: anemia EDVIN MARROQUIN MD Oct 23, 2021 11:04
--- NOTE | 2021-10-23 11:53 | Cardiology Progress Note ---
Progress Note-Cardiology Events since last exam Date Seen by Provider: Oct 23, 2021 Time Seen by Provider: 11:52 Events since last exam I am following him due to heart failure and arrhythmias. His peripheral edema is almost completely resolved. However, this morning he was much more short of breath than he has been in the past week. He denies chest discomfort, palpitations, or syncope. Certain portions of this document may have been dictated utilizing voice recognition technology. Inherent to this technology, typographical and grammatical errors may exist. As much as I am diligent to identify and correct these mistakes, some errors may remain in the document. Vitals Last set of Vitals Signs Vital Signs 10/22/21 10/23/21 10/23/21 07:17 07:44 09:28 Temp 36.4 Pulse 80 Resp 22 B/P (MAP) 115/53 (73) Pulse Ox 98 O2 Delivery High Flow N/C O2 Flow Rate 2.00 FiO2 2 Labs Labs Laboratory Tests 10/23/21 05:53 Exam Vital Signs Vital Signs Date Time Temp Pulse Resp B/P (MAP) Pulse Ox O2 Delivery O2 Flow Rate FiO2 10/23/21 09:28 98 High Flow N/C 2.00 10/23/21 07:44 36.4 80 22 115/53 (73) 10/22/21 07:17 2 Physical Exam General: Alert. No acute distress. He is wearing oxygen by nasal cannula. Eye: No xanthelasma. HENT: Normocephalic. Neck: Jugular venous pressure does not appear elevated. Respiratory: Lungs are clear to auscultation. Respirations are non-labored. Breath sounds are equal. Symmetrical chest wall expansion. Cardiovascular: Normal rate. Regular rhythm. No murmur. No gallop. 1+ bilateral pretibial edema. Gastrointestinal: Soft. Normal bowel sounds. Skin: Warm. Dry. Neurologic: Alert and oriented to person, place, time. Cranial nerves 3-11 grossly intact. Psychiatric: Cooperative. Appropriate mood & affect. Labs Laboratory Tests Test 10/22/21 15:45 10/22/21 20:30 10/23/21 05:53 Range/Units Glucometer 142 H 162 H 70-110 MG/DL Sodium Level 134 L 135-145 MMOL/L Potassium Level 3.9 3.6-5.0 MMOL/L Chloride Level 94 L 98-107 MMOL/L Carbon Dioxide Level 29 21-32 MMOL/L Anion Gap 11 5-14 MMOL/L Blood Urea Nitrogen 22 H 7-18 MG/DL Creatinine 1.11 0.60-1.30 MG/DL Estimat Glomerular Filtration Rate 67 BUN/Creatinine Ratio 20 Glucose Level 85 70-105 MG/DL Calcium Level 8.5 8.5-10.1 MG/DL Diagnosis/Problems Diagnosis/Problems (1) Acute heart failure with preserved ejection fraction (HFpEF) Assessment & Plan: I started him on intravenous diuretic on 10/15. His chest x-ray from 10/16 still showed bilateral pleural effusions but his chest x-ray from 10/22 is improved. His symptoms continue to gradually improve and his edema is almost resolved. Unfortunately, his breathing is worse today. There has been little change in his renal function. I will double the dose of bumetanide. He may need home oxygen when he is ready for discharge. (2) Paroxysmal atrial fibrillation Status: Acute Assessment & Plan: He initially was having sinus tachycardia and multifocal atrial tachycardia but towards the end of his acute hospitalization, he may have had at least a few episodes of atrial fibrillation. I placed the patient on rivaroxaban for stroke prophylaxis. He is on diltiazem for rate control. He seems to be remaining in sinus rhythm since being transferred to inpatient rehab. The patient then developed heme positive stool and anemia and rivaroxaban has been on hold. Since I suspect the atrial fibrillation may have been brought on by his acute, noncardiac illness, he may not need lifelong anticoagulation. I would have to have him undergo cardiac monitoring following discharge. (3) Primary hypertension Status: Chronic Assessment & Plan: Blood pressures are reasonably controlled with the current dose of diltiazem which he is on due to atrial fibrillation. (4) Multifocal atrial tachycardia Status: Acute Assessment & Plan: As above, he was predominantly having multifocal atrial tachycardia when he was first admitted to the acute hospital. Now he is back in sinus rhythm. I recommend he continue on diltiazem. (5) Mixed hyperlipidemia Status: Chronic Assessment & Plan: Continue atorvastatin. (6) Acute kidney injury Status: Acute Assessment & Plan: His renal function now seems to have stabilized. We will need to monitor this closely with intravenous diuretic. SHERRI CHO JR, MD Oct 23, 2021 11:53
--- NOTE | 2021-10-23 12:02 | Occupational Ther Daily Note ---
OT Current Status-Daily Note Subjective Pt reports feeling slightly better than am session, but still not better than he was yesterday. Appearance Left sitting in chair, all needs within reach. ADL-Treatment Therapy Code Descriptions/Definitions Functional [place] Measure: 0=Not Assessed/NA 4=Minimal Assistance 1=Total Assistance 5=Supervision or Setup 2=Maximal Assistance 6=Modified [place] 3=Moderate Assistance 7=Complete IndependenceSCALE: Activities may be completed with or without assistive devices. 5-Fplncsdult-zusuzrp completes the activity by him/herself with no assistance from a helper. 5-Set-up or Clean-up Assistance-helper sets up or cleans up; patient completes activity. [place] assists only prior to or following the activity. 4-Supervision or Touching Assistance-helper provides verbal cues and/or touching/steadying and/or contact guard assistance as patient completes activity. Assistance may be provided throughout the activity or intermittently. 3-Partial/Moderate Assistance-helper does LESS THAN HALF the effort. [place] lifts, holds or supports trunk or limbs, but provides less than half the effort. 2-Substantial/Maximal Assistance-helper does MORE THAN HALF the effort. [place] lifts or holds trunk or limbs and provides more than half the effort. 5-Gztwalyyt-fodvsd does ALL the effort. Patient does none of the effort to complete the activity. Or, the assistance of 2 or more helpers is required for the patient to complete the activity. If activity was not attempted, code reason: 7-Patient Refused. 9-Not Applicable-not attempted and the patient did not perform the activity before the current illness, exacerbation or injury. 10-Not Attempted due to Environmental Limitations-(lack of equipment, weather restraints, etc.). 88-Not Attempted due to Medical Conditions or Safety Concerns. Other Treatment Pt participated in UE AROM exercises to promote increased endurance, strength, and pulmonary function needed for adls and transfers. He was able to recall 3 exercises learned in past sessions, but still needed min cues for proper technique. He continues to require cues for proper breathing techniques as he has a tendency to hold his breath. R active shoulder flexion to ~150 degrees and Left ~90 degrees. AAROM L to ~120 degrees. Rest break needed after each exercise. 10 x1 in all planes. Less edema notable this date. Pt reports that he owns a recliner but he will not use post d/c as he had difficulty getting out of it before even getting sick. He states he will use a dining room chair or desk chair to sit in during the day. OT recommended against a rolling desk chair at this time but did suggest alternative compensatory methods if needed (such as having back of chair against wall to keep from rolling away when going from sit/stand). Education OT Patient Education: Correct positioning, Exercise program, Modified ADL techniques, Purpose of tx/functional activities, Transfer techniques Teaching Recipient: Patient Teaching Methods: Demonstration, Discussion Response to Teaching: Verbalize Understanding, Return Demonstration, Reinforcement Needed OT Short Term Goals Short Term Goals Time Frame: Oct 19, 2021 Eatin Oral hygiene: 5 Toileting hygiene: 4 Shower/bathe self: 4 Upper body dressin Lower body dressin Putting on/taking off footwear: 4 OT Snf Goals Snf Goals Time Frame: Oct 26, 2021 Eating (QC): 6 Oral Hygiene (QC): 6 Toileting Hygiene (QC): 6 Shower/Bathe Self (QC): 5 Upper Body Dressing (QC): 5 Lower Body Dressing (QC): 5 On/Off Footwear (QC): 5 1=Demonstrate adherence to instructed precautions during ADL tasks. 2=Patient will verbalize/demonstrate understanding of assistive devices/modifications for ADL. 3=Patient will improve strength/tolerance for activity to enable patient to perform ADL's. OT Education/Plan Problem List/Assessment Assessment: Decreased Activ Tolerance, Decreased UE Strength, Impaired Funct Balance, Impaired I ADL's, Impaired Self-Care Skills, Restricted Funct UE ROM Discharge Recommendations Plan/Recommendations: Continue POC Treatment Plan/Plan of Care Treatment,Training & Education: Yes Patient would benefit from OT for education, treatment and training to promote independence in ADL's, mobility, safety and/or upper extremity function for ADL's. Plan of Care: ADL Retraining, Functional Mobility, Group Exercise/Act as Ind, UE Funct Exercise/Act, W/C Management Training Treatment Duration: Oct 26, 2021 Frequency: At least 5 of 7 days/Wk (IRF) Estimated Hrs Per Day: 1.5 hours per day Agreement: Yes Rehab Potential: Fair Time/GCodes Start Time: 11:30 Stop Time: 11:55 Total Time Billed (hr/min): 25 Billed Treatment Time 1 visit EX x2 Tamiko Fox OT Oct 23, 2021 12:01
--- NOTE | 2021-10-23 12:09 | Physical Therapy Daily Note ---
PT Daily Note-Current Subjective Pt in recliner upon arrival and agrees to perform exes in recliner. Reports he still hasn't had a BM. Mental Status Patient Orientation: Person, Place, Time, Situation, Normal For Age Attachments: Oxygen Transfers SCALE: Activities may be completed with or without assistive devices. 9-Audqwyqdjv-lupjxep completes the activity by him/herself with no assistance from a helper. 5-Set-up or Clean-up Assistance-helper sets up or cleans up; patient completes activity. [place] assists only prior to or following the activity. 4-Supervision or Touching Assistance-helper provides verbal cues and/or touching/steadying and/or contact guard assistance as patient completes activity. Assistance may be provided throughout the activity or intermittently. 3-Partial/Moderate Assistance-helper does LESS THAN HALF the effort. [place] lifts, holds or supports trunk or limbs, but provides less than half the effort. 2-Substantial/Maximal Assistance-helper does MORE THAN HALF the effort. [place] l ifts or holds trunk or limbs and provides more than half the effort. 6-Qrxohvmcd-qiagzy does ALL the effort. Patient does none of the effort to complete the activity. Or, the assistance of 2 or more helpers is required for the patient to complete the activity. If activity was not attempted, code reason: 7-Patient Refused. 9-Not Applicable-not attempted and the patient did not perform the activity before the current illness, exacerbation or injury. 10-Not Attempted due to Environmental Limitations-(lack of equipment, weather restraints, etc.). 88-Not Attempted due to Medical Conditions or Safety Concerns. Weight Bearing Right Lower Extremity: Right Weight Bearing/Tolerated Left Lower Extremity: Left Weight Bearing/Tolerated Exercises Supine Ex: Ankle pumps, Quad Set, Glut sets, Straight leg raise, Hip abd/add Supine Reps: 25 Seated Therapy Exercises: Ankle pumps, Long arc quads, Hip flexion, Hamstring Curls, Hip abd/add, Glut set Seated Reps: 30 Assessment Current Status: Good Progress Pt performs 2 sets on exes and tolerates well. Pt becomes SOB following each ex but recovers quickly w/ short rest break. All needs met as PT departs and call light nearby. PT Short Term Goals Short Term Goals Time Frame: Oct 17, 2021 Roll Left & Right: 6 Sit to lyin Lying to sitting on side of be: 4 Sit to stand: 4 (SBA) Chair/izu-hn-nwjvg transfer: 4 (SBA) Walk 10 feet: 4 Walk 50 feet with two turns: 4 Walk 150 feet: 4 PT Cleaner And Polisher Goals Cleaner And Polisher Goals PT Senior Care Goals Time Frame: Oct 31, 2021 Roll Left & Right (QC): 6 Sit to Lying (QC): 6 Lying-Sitting on Side/Bed(QC): 6 Sit to Stand (QC): 6 Chair/Qqb-kx-Tcvqs Xfer(QC): 6 Toilet Transfer (QC): 6 Car Transfer (QC): 3 Does the Patient Walk: Yes Walk 10 feet (QC): 6 Walk 50ft with 2 Turns (QC): 6 Walk 150 ft (QC): 6 Walking 10ft on Uneven Surface: 4 1 Step (curb) (QC): 4 4 Steps (QC): 4 12 Steps (QC): 88 Picking up an Object (QC): 4 Wheel 50 feet with 2 turns (QC: 9 Wheel 150 feet: 9 PT Plan Problem List Problem List: Activity Tolerance, Functional Strength Treatment/Plan Treatment Plan: Continue Plan of Care Treatment Plan: Bed Mobility, Education, Functional Activity Tatiana, Functional Strength, Group Therapy, Gait, Safety, Therapeutic Exercise, Transfers Treatment Duration: Oct 31, 2021 Frequency: At least 5 of 7 days/Wk (IRF) Estimated Hrs Per Day: 1.5 hours per day Patient and/or Family Agrees t: Yes Safety Risks/Education Patient Education: Correct Positioning Teaching Recipient: Patient Teaching Methods: Discussion Response to Teaching: Return Demonstration Time/GCodes Time In: 1100 Time Out: 1130 Total Billed Treatment Time: 30 Total Billed Treatment 1, Ex x 2 ARIAS PETERS PTA Oct 23, 2021 12:09
--- NOTE | 2021-10-23 15:11 | Speech Therapy Daily Note ---
Speech Daily Progress Note Subjective Date Seen by Provider: Oct 23, 2021 Time Seen by Provider: 09:45 The patient was seated upright in his recliner upon entrance to his room. The patient greeted the clinician appropriately and was agreeable to participation in the cognitive linguistic treatment session. Objective The patient completed the [place] Cognitive Assessment (MoCA) Version One. The patient displayed a result of +26/30 correlating to a cognitive linguistic function within normal limits. The patient's results are as follows: - Executive Function: 5/5 - Memory: The patient was able to recall four of five single words following a five minute delay. - Attention: The patient was unable to complete serial seven subtraction. - Language: The patient was able to provide seven "f" words within a one minute time frame (WNL=15). - Abstraction: The patient was unable to find similarities between two items. - Orientation: 6/6 While the patient does display results within normal limits, the patient's score received an additional point as the patient completed education to the eight grade, only. The patient continues to display difficulty with functional recall and attention, therefore, speech pathology will continue skilled treatment towards improvement and a safe return home. Assessment Assessment Current Status: Good Progress Treatment Plan Continue Plan of Care Speech Short Term Goals Short Term Goals Short Term Goals 1. The patient will display 80% accuracy with problem solving exercises, independently. 2. The patient will demonstrate 80% accuracy with memory exercises, ind ependently. Time Frame-STG: One Week Speech Care Home Goals Care Home Goals 1. The patient will display increased cognitive linguistic abilities for improved independence with ADL's in the least restrictive environment. Time Frame: Two Weeks Speech-Plan Treatment Plan Speech Therapy Treatment Plan: Continue Plan of Care Treatment Duration: Nov 07, 2021 Frequency: 4 times per week (Four to five times per week.) Estimated Hrs Per Day: .5 hour per day Rehab Potential: Fair Pt/Family Agrees to Plan: Yes Safety Risks/Education Teaching Recipient: Patient Teaching Methods: Discussion Response to Teaching: Verbalize Understanding Education Topics Provided: Results of MoCA Time Speech Therapy Time In: 09:45 Speech Therapy Time Out: 10:15 Total Billed Time: 30 Billed Treatment Time PATRICIO Gómez [facility] Oct 23, 2021 15:11
[2021-10-23 19:39] VITALS: BP 110/56
[2021-10-23] MEDS: MONTELUKAST 10 MG (SINGULAIR) TAB PO SCH (21:56)
[2021-10-24] MEDS: BUMETANIDE 1 MG/4 ML (BUMEX) VIAL IV SCH (06:43)
[2021-10-24] MEDS: CATHETER FLUSH 10 ML SYR IV SCH ×3 (06:44→20:13)
--- NOTE | 2021-10-24 07:03 | PM&R Progress Note ---
Subjective HPI/CC On Admission Date Seen by Provider: Oct 24, 2021 Time Seen by Provider: 11:00 Subjective/Events-last exam 10/24/2021: Pt getting an EGD and colonoscopy today Overall very improved Forget he took the prep for the colonoscopy If no evidence of bleed we will start oral anticoagulation 10/23/21: Pt is doing a lot better but he thinks he is getting worse Functionally he is very slow to recover Scopes could be performed by Dr. Teague soon Discontinue accuchecks and discontinue Prednisone Lungs sound really good today Very negative and flat affect 10/22/2021: Patient doing much better Bal catheter remains Had a lot of output after Bumex Bowels moved yesterday Lower extremity edema improved White blood cell count coming down to 17.5 Hemoglobin 8.1 10/21/2021: Patient doing about the same Large BM after suppository but needs further evacuation Blood pressure a bit low due to 3 L of urinary output yesterday No Urecholine yet due to tenuous COPD status Checked meds and labs 10/20/2021: Patient dramatically improved Bumex 1 mg IV is now twice a day LIZZETTE hoslois ordered Breathing better 96% on 3 L Bal catheter will remain until Friday Bowel treatment will intensify Patient feels better 10/19/2021: Patient appears to be dramatically improved Overall less short of breath Cystoscopy revealed BPH Bal catheter replaced Working on bowels 10/18/21: EGD/Colonoscopy will be canceled Straight Catheter will be addressed by Dr. Izaguirre D/C isolation for C-Diff Vanc PO continues for now Bumex given daily Respiratory status is tenuous 10/17/21: Pt is doing pretty well C-diff was negative but I think the elevated white count and loose stools are still at risk for C-diff. Maintain Vancomycin PO Venofer iron infusions maintained EGD and colonoscopy for Friday Improved dyspnea with Bumex 10/16/21: Pt is very complicated Dr. Izaguirre will see him ABG could not be obtained Chest x-ray reveals the infiltrate pulmonary edema Remains on 3.5L of O2 Xarelto is on hold IV iron infusions maintained IV Bumex ordered by Cardiology 10/15/21: Pt is doing about the same Pt had a formed BM Can't do c.diff on formed bowels Dr. Ford to see for volume overload White count down to 30,000 Holding anticoagulation due to hemoccult positive stools and anemia Hemoglobin 8.1 10/14/2021: Patient feels better Elevated white count he is suspicious Dark stool was Hemoccult and it is positive Consulted Dr. TEAGUE and ordered proton pump inhibitor twice daily and Carafate and holding Xarelto C. difficile will be ordered due to significantly elevated white blood cell count but no fever or any other findings of infectious source Check meds labs Very complex issues 10/13/2021: Patient doing better Oxygen down to 3 L Gave Lasix 20 mg IV after I conferred with Dr. Colon Edema noted Labs revealed white count elevated due to steroid effect Antibiotics still on board LIZZETTE gonzalez maintained Had BM yesterday Wheezing noted but no coarseness Urinary retention management 10/12/21: Pt dramatically improved Dr. Ford is monitoring Accapella is being used 4L of of O2 now Voiding well since Catheter removed Took a shower today he feels much better 10/11/21: Pt doing a lot better today Bowels are moving Catheter was discontinued Blood pressure is doing okay White count 20,000 from steroid Hemoglobin is 9.3 Remains on 4-6L of O2 and does increase with exertion Overall, much improved Review of Systems General: Fatigue, Malaise Objective Exam Vital Signs Vital Signs Date Time Temp Pulse Resp B/P (MAP) Pulse Ox O2 Delivery O2 Flow Rate FiO2 10/24/21 20:51 High Flow N/C 2.00 10/24/21 20:23 36.2 84 20 94/51 (65) 98 10/22/21 07:17 2 Capillary Refill : General Appearance: No Apparent Distress, WD/WN, Chronically ill HEENT: PERRL/EOMI, Normal ENT Inspection, Pharynx Normal Neck: Full Range of Motion, Normal Inspection, Non Tender, Supple, Carotid Bruit Respiratory: Chest Non Tender, Lungs Clear, Normal Breath Sounds, No Accessory Muscle Use, No Respiratory Distress Cardiovascular: Regular Rate, Rhythm, No Edema, No Gallop, No JVD, No Murmur, Normal Peripheral Pulses Gastrointestinal: Normal Bowel Sounds, No Organomegaly, No Pulsatile Mass, Non Tender, Soft Back: Normal Inspection, No CVA Tenderness, No Vertebral Tenderness Extremity: Normal Capillary Refill, Normal Inspection, Normal Range of Motion, Non Tender, No Calf Tenderness, No Pedal Edema Neurologic/Psychiatric: Alert, Oriented x3, No Motor/Sensory Deficits, Normal Mood/Affect Skin: Normal Color, Warm/Dry Lymphatic: No Adenopathy Results/Procedures Lab Laboratory Tests 10/24/21 07:00 10/25/21 04:45 Patient resulted labs reviewed. FIM Transfers Therapy Code Descriptions/Definitions Functional [place] Measure: 0=Not Assessed/NA 4=Minimal Assistance 1=Total Assistance 5=Supervision or Setup 2=Maximal Assistance 6=Modified [place] 3=Moderate Assistance 7=Complete IndependenceSCALE: Activities may be completed with or without assistive devices. 8-Qvdlmosnup-derpxgt completes the activity by him/herself with no assistance from a helper. 5-Set-up or Clean-up Assistance-helper sets up or cleans up; patient completes activity. [place] assists only prior to or following the activity. 4-Supervision or Touching Assistance-helper provides verbal cues and/or touching/steadying and/or contact guard assistance as patient completes activity. Assistance may be provided throughout the activity or intermittently. 3-Partial/Moderate Assistance-helper does LESS THAN HALF the effort. [place] l ifts, holds or supports trunk or limbs, but provides less than half the effort. 2-Substantial/Maximal Assistance-helper does MORE THAN HALF the effort. [place] lifts or holds trunk or limbs and provides more than half the effort. 4-Plhocijwy-ukchzr does ALL the effort. Patient does none of the effort to complete the activity. Or, the assistance of 2 or more helpers is required for the patient to complete the activity. If activity was not attempted, code reason: 7-Patient Refused. 9-Not Applicable-not attempted and the patient did not perform the activity before the current illness, exacerbation or injury. 10-Not Attempted due to Environmental Limitations-(lack of equipment, weather restraints, etc.). 88-Not Attempted due to Medical Conditions or Safety Concerns. Roll Left to Right (QC): 6 Sit to Lying (QC): 6 Sit to Stand (QC): 4 Chair/Ieq-yi-Gsong Xfer(QC): 5 Car Transfer (QC): 3 Gait Training Does the Patient Walk?: Yes Distance: 75' x 2, 50' x 1 Walk 10 feet (QC): 4 Walk 50 ft with 2 Turns(QC): 4 Walk 150 ft (QC): 88 Walking 10ft/uneven surface-QC: 88 Gait Persons Needed: 1 Gait Assistive Device: FWW Wheelchair Training Does the Pt Use a Wheelchair?: Yes Wheel 50 ft with 2 turns (QC): 1 Wheel 150 ft (QC): 1 Type of Wheelchair: Manual Stair Training 1 Step (curb) (QC): 88 4 Steps (QC): 88 12 Steps (QC): 88 Balance Picking up an Object (QC): 88 ADL-Treatment Eating (QC): 6 Oral Hygiene (QC): 5 Shower/Bathe Self (QC): 4 Upper Body Dressing (QC): 3 Lower Body Dressing (QC): 4 On/Off Footwear (QC): 1 Toileting Hygiene (QC): 3 Toilet Transfer (QC): 3 Assessment/Plan Assessment and Plan Assess & Plan/Chief Complaint Assessment: Debility New onset AF w/recent RVR Active wheezing AECOPD Hypoxia PNA s/p septic shock CHAZ HTN Hypoxemia Urinary retention 10/13/21 Volume overload giving Bumex per Dr Ford Dark stool Hemoccult + 10/14/[address] TEAGUE and change PPI to twice daily and added Carafate and holding Xarelto status post EGD and colonoscopy with healed antral ulcer noted Severely elevated white count without source checking C. difficile Presumed C diff colitis placed on Vanc PO but test negative? Stopping vanco mycin p.o. now Plan: Monitor closely IV steroids IV abx DC cath tomorrow Supportive care 10/11/21: Monitor closely Cath DC 10/12/21: Doing extremely well Monitor closely 10/13/21: Lasix 20mgIV x [address] Colon Urinary retention management 10/14/2021: Check C. difficile Hold Xarelto PPI and Carafate 10/15/21: Appreciate Dr Ford Consult Dr Izaguirre 10/16/21: Vanc PO Monitor closely Complex case 10/17/21: Vanc PO C diff negative but still suspicious 10/18/21: Monitor wbc Decrease steroids Diuresis 10/19/2021: Supportive care Decrease steroids Continue diuresis 10/20/2021: Continue aggressive diuresis Supportive care 10/21/2021: Continue aggressive diuresis Monitor closely 10/22/2021: Supportive care Monitor electrolytes 10/23/21: Monitor progress Scopes soon OAC after scopes 10/24/2021: EGD and colonoscopy showed antral ulcer Restart oral anticoagulation? (1) Acute heart failure with preserved ejection fraction (HFpEF) Assessment & Plan: I started him on intravenous diuretic on 10/15. His chest x-ray from 10/16 still showed bilateral pleural effusions but his chest x-ray from 10/22 is improved. His symptoms continue to gradually improve and his edema is almost resolved. Unfortunately, his breathing is worse today. There has been little change in his renal function. I will double the dose of bumetanide. He may need home oxygen when he is ready for discharge. (2) Paroxysmal atrial fibrillation Status: Acute Assessment & Plan: He initially was having sinus tachycardia and multifocal atrial tachycardia but towards the end of his acute hospitalization, he may have had at least a few episodes of atrial fibrillation. I placed the patient on rivaroxaban for stroke prophylaxis. He is on diltiazem for rate control. He seems to be remaining in sinus rhythm since being transferred to inpatient rehab. The patient then developed heme positive stool and anemia and r ivaroxaban has been on hold. Since I suspect the atrial fibrillation may have been brought on by his acute, noncardiac illness, he may not need lifelong anticoagulation. I would have to have him undergo cardiac monitoring following discharge. (3) Primary hypertension Status: Chronic Assessment & Plan: Blood pressures are reasonably controlled with the current dose of diltiazem which he is on due to atrial fibrillation. (4) Multifocal atrial tachycardia Status: Acute Assessment & Plan: As above, he was predominantly having multifocal atrial tachycardia when he was first admitted to the acute hospital. Now he is back in sinus rhythm. I recommend he continue on diltiazem. (5) Mixed hyperlipidemia Status: Chronic Assessment & Plan: Continue atorvastatin. (6) Acute kidney injury Status: Acute Assessment & Plan: His renal function now seems to have stabilized. We will need to monitor this closely with intravenous diuretic. FRANCISCO BHAKTA DO Oct 24, 2021 07:03
[2021-10-24 07:11] LABS: BASOPHILS % (AUTO) 0 % (0-10); EOSINOPHILS % (AUTO) 0 % (0-10); HEMATOCRIT 26 % (40-54); HEMOGLOBIN 8.1 g/dL (13.3-17.7); LYMPHOCYTES # (AUTO) 1.3 10^3/uL (1.0-4.0); LYMPHOCYTES % (AUTO) 8 % (12-44); MEAN CORPUSCULAR HEMOGLOBIN 29 pg (25-34); MEAN CORPUSCULAR HGB CONC 32 g/dL (32-36); MEAN CORPUSCULAR VOLUME 92 fL (80-99); MONOCYTES # (AUTO) 1.2 10^3/uL (0.0-1.0); MONOCYTES % (AUTO) 7 % (0-12); NEUTROPHILS % (AUTO) 84 % (42-75); PLATELET COUNT 458 10^3/uL (130-400); WHITE BLOOD COUNT 16.7 10^3/uL (4.3-11.0)
--- NOTE | 2021-10-24 07:26 | Physical Therapy Daily Note ---
PT Daily Note-Current Subjective Pt. agrees to Rx but want to stay in his room as he is so tired from having a BM. "I feel better but I'm not completely finished clearing out my bowel" Pain Location: No Pain Reported Mental Status Patient Orientation: Normal For Age Attachments: Oxygen, Bal Catheter Transfers SCALE: Activities may be completed with or without assistive devices. 6-Jrtygaigrd-dawoqza completes the activity by him/herself with no assistance from a helper. 5-Set-up or Clean-up Assistance-helper sets up or cleans up; patient completes activity. [place] assists only prior to or following the activity. 4-Supervision or Touching Assistance-helper provides verbal cues and/or touching/steadying and/or contact guard assistance as patient completes activity. Assistance may be provided throughout the activity or intermittently. 3-Partial/Moderate Assistance-helper does LESS THAN HALF the effort. [place] lifts, holds or supports trunk or limbs, but provides less than half the effort. 2-Substantial/Maximal Assistance-helper does MORE THAN HALF the effort. [place] lifts or holds trunk or limbs and provides more than half the effort. 8-Vmqqthsoi-yzifyj does ALL the effort. Patient does none of the effort to complete the activity. Or, the assistance of 2 or more helpers is required for the patient to complete the activity. If activity was not attempted, code reason: 7-Patient Refused. 9-Not Applicable-not attempted and the patient did not perform the activity before the current illness, exacerbation or injury. 10-Not Attempted due to Environmental Limitations-(lack of equipment, weather restraints, etc.). 88-Not Attempted due to Medical Conditions or Safety Concerns. sit to stands at chair x 8 using arms of chair Weight Bearing Right Lower Extremity: Right Weight Bearing/Tolerated Left Lower Extremity: Left Weight Bearing/Tolerated Exercises Supine Ex: Ankle pumps, Quad Set, Glut sets, Straight leg raise, Hip abd/add Supine Reps: 15 (reclined in chair) Seated Therapy Exercises: Ankle pumps, Sit to stand, Long arc quads, Hip flexion, Hip abd/add Seated Reps: 15 Assessment Current Status: Good Progress PT Short Term Goals Short Term Goals Time Frame: Oct 17, 2021 Roll Left & Right: 6 Sit to lyin Lying to sitting on side of be: 4 Sit to stand: 4 (SBA) Chair/qdc-wg-ggugd transfer: 4 (SBA) Walk 10 feet: 4 Walk 50 feet with two turns: 4 Walk 150 feet: 4 PT Usp Goals Resource Development Director Goals PT [facility]sp Goals Time Frame: Oct 31, 2021 Roll Left & Right (QC): 6 Sit to Lying (QC): 6 Lying-Sitting on Side/Bed(QC): 6 Sit to Stand (QC): 6 Chair/Hwn-iv-Cpnkx Xfer(QC): 6 Toilet Transfer (QC): 6 Car Transfer (QC): 3 Does the Patient Walk: Yes Walk 10 feet (QC): 6 Walk 50ft with 2 Turns (QC): 6 Walk 150 ft (QC): 6 Walking 10ft on Uneven Surface: 4 1 Step (curb) (QC): 4 4 Steps (QC): 4 12 Steps (QC): 88 Picking up an Object (QC): 4 Wheel 50 feet with 2 turns (QC: 9 Wheel 150 feet: 9 PT Plan Treatment/Plan Treatment Plan: Continue Plan of Care Treatment Plan: Bed Mobility, Education, Functional Activity Tatiana, Functional Strength, Group Therapy, Gait, Safety, Therapeutic Exercise, Transfers Treatment Duration: Oct 31, 2021 Frequency: At least 5 of 7 days/Wk (IRF) Estimated Hrs Per Day: 1.5 hours per day Patient and/or Family Agrees t: Yes Safety Risks/Education Patient Education: Transfer Techniques, Correct Positioning Time/GCodes Time In: 1400 Time Out: 1430 Total Billed Treatment Time: 30 Total Billed Treatment 1,FA15m,EX15m ...this documentation is for Mon. October, JOSEFINA Gardner LEE A PTA Oct 24, 2021 07:26
[2021-10-24] MEDS: RT-ALBUTEROL/IPRATROPIUM 3 ML (DUONEB) VIAL INH SCH ×2 (07:28→20:51)
[2021-10-24] MEDS: RT-BUDESONIDE NEBS 0.5 MG/2ML (PULMICORT) AMP INH SCH ×2 (07:29→20:54)
[2021-10-24 07:38] LABS: BILIRUBIN,TOTAL 0.4 MG/DL (0.1-1.0); CALCIUM 8.9 MG/DL (8.5-10.1); CREATININE SERUM 1.15 MG/DL (0.60-1.30); POTASSIUM 4.2 MMOL/L (3.6-5.0); TOTAL PROTEIN 5.5 GM/DL (6.4-8.2)
[2021-10-24] MEDS: SUCRALFATE 1 GM (CARAFATE) TAB PO SCH ×4 (07:57→20:12)
[2021-10-24] MEDS: LACTOBACILLUS ACIDOPHILUS (PROBIOTIC) CAPSULE PO SCH ×4 (07:57→20:12)
[2021-10-24 08:00] VITALS: BP 113/55
[2021-10-24] MEDS: TAMSULOSIN 0.4 MG (FLOMAX) CAP PO SCH ×2 (08:27→20:12)
[2021-10-24] MEDS: IRON SUCROSE 200 MG/10 ML (VENOFER) VIAL IV SCH (08:52)
--- NOTE | 2021-10-24 08:54 | Progress Note - Urology ---
Progress Note-Urology Progress Notes/Assess & Plan Progress/Assessment & Plan PLAN TO LEAVE HINOJOSA IN FOR NOW TILL PATIENT STRONGER AND NO ACTIVE DIURESIS Final Diagnosis RETENTION ATILIO WILSON MD Oct 24, 2021 08:54
--- NOTE | 2021-10-24 09:01 | Occupational Ther Daily Note ---
OT Current Status-Daily Note Subjective Pt reports feeling slightly better than previous date. Agreeable to shower. Appearance Left sitting in recliner, BLE's elevated, all needs within reach at OT dep arture. Mental Status/Objective Patient Orientation: Person, Place, Situation Attachments: IV, Oxygen ADL-Treatment Therapy Code Descriptions/Definitions Functional [place] Measure: 0=Not Assessed/NA 4=Minimal Assistance 1=Total Assistance 5=Supervision or Setup 2=Maximal Assistance 6=Modified [place] 3=Moderate Assistance 7=Complete IndependenceSCALE: Activities may be completed with or without assistive devices. 5-Ymfsjoekco-tnssedr completes the activity by him/herself with no assistance from a helper. 5-Set-up or Clean-up Assistance-helper sets up or cleans up; patient completes activity. [place] assists only prior to or following the activity. 4-Supervision or Touching Assistance-helper provides verbal cues and/or touching/steadying and/or contact guard assistance as patient completes activity. Assistance may be provided throughout the activity or intermittently. 3-Partial/Moderate Assistance-helper does LESS THAN HALF the effort. [place] lifts, holds or supports trunk or limbs, but provides less than half the effort. 2-Substantial/Maximal Assistance-helper does MORE THAN HALF the effort. [place] lifts or holds trunk or limbs and provides more than half the effort. 9-Fimfrbhfe-oxmtwa does ALL the effort. Patient does none of the effort to complete the activity. Or, the assistance of 2 or more helpers is required for the patient to complete the activity. If activity was not attempted, code reason: 7-Patient Refused. 9-Not Applicable-not attempted and the patient did not perform the activity before the current illness, exacerbation or injury. 10-Not Attempted due to Environmental Limitations-(lack of equipment, weather restraints, etc.). 88-Not Attempted due to Medical Conditions or Safety Concerns. Eating (QC): 6 Oral Hygiene (QC): 6 Shower/Bathe Self (QC): 4 Upper Body Dressing (QC): 4 Lower Body Dressing (QC): 4 On/Off Footwear: 2 Toileting Hygiene (QC): 3 Toilet Transfer (QC): 4 Pt reports feeling slightly better this am. Agreeable to shower. Task completed majority in sitting. He stood only briefly to wash diana area and buttocks, sba- cga for safety. Intermittent single UE support on grab bar when standing. Pt declines washing below mid calf and instead reports that he usually lets the soapy water run down his legs. SOA exhibited with exertion. Education and cues on energy conservation and taking breaks as needed. Assist to dry body due to fatigue and pt shivering. New brief/gown donned as pt it to have procedure later today. Reminder on using partner after multiple failed attempts to thread legs into brief. Post cue, improved effort and independence with task. CGA as he stood to pull brief over hips. Pt requires one hand on walker for balance as other manages clothing. Dependent to don tylor hose and socks secondary to increased edema. Several lengthy rest breaks required during all functional tasks secondary to soa and fatigue with exertion. Education OT Patient Education: Correct positioning, Energy conservation, Instructions to caregiver, Modified ADL techniques, Progress toward Goal/Update tx plan, Purpose of tx/functional activities, Rehab process, Safety issues Teaching Recipient: Patient Teaching Methods: Demonstration, Discussion Response to Teaching: Verbalize Understanding, Reinforcement Needed OT Short Term Goals Short Term Goals Time Frame: Oct 19, 2021 Eatin Oral hygiene: 5 Toileting hygiene: 4 Shower/bathe self: 4 Upper body dressin Lower body dressin Putting on/taking off footwear: 4 OT Cash Management Coordinator Goals Half-Way Goals Time Frame: Oct 26, 2021 Eating (QC): 6 Oral Hygiene (QC): 6 Toileting Hygiene (QC): 6 Shower/Bathe Self (QC): 5 Upper Body Dressing (QC): 5 Lower Body Dressing (QC): 5 On/Off Footwear (QC): 5 1=Demonstrate adherence to instructed precautions during ADL tasks. 2=Patient will verbalize/demonstrate understanding of assistive devices/modifications for ADL. 3=Patient will improve strength/tolerance for activity to enable patient to perform ADL's. OT Education/Plan Problem List/Assessment Assessment: Decreased Activ Tolerance, Decreased UE Strength, Edema, Impaired Funct Balance, Impaired I ADL's, Impaired Self-Care Skills, Restricted Funct UE ROM Discharge Recommendations Plan/Recommendations: Continue POC Equpiment Recommendations-D/C: Clinical Support Nurse Treatment Plan/Plan of Care Treatment,Training & Education: Yes Patient would benefit from OT for education, treatment and training to promote independence in ADL's, mobility, safety and/or upper extremity function for ADL's. Plan of Care: ADL Retraining, Functional Mobility, Group Exercise/Act as Ind, UE Funct Exercise/Act, W/C Management Training Treatment Duration: Oct 26, 2021 Frequency: At least 5 of 7 days/Wk (IRF) Estimated Hrs Per Day: 1.5 hours per day Agreement: Yes Rehab Potential: Fair Time/GCodes Start Time: 07:43 Stop Time: 08:58 Total Time Billed (hr/min): 75 Billed Treatment Time 1 visit ADL x5 Tamiko Fox OT Oct 24, 2021 09:01
[2021-10-24] MEDS: LORATADINE (CLARITIN) 10 MG TAB PO SCH (09:36)
[2021-10-24] MEDS: DOCUSATE SODIUM 100 MG (COLACE) CAP PO SCH ×2 (09:36→19:40)
[2021-10-24] MEDS: SENNA W/DOCUSATE (SENOKOT S) TABLET PO SCH ×2 (09:37→19:40)
[2021-10-24] MEDS: PANTOPRAZOLE 40 MG (PROTONIX) TAB PO SCH ×2 (09:37→20:12)
[2021-10-24] MEDS: polyethylene glycoL POWDER 17 GM (MIRALAX) PACK PO SCH ×2 (09:37→19:40)
[2021-10-24] MEDS: CAL. POLYCARBOPHIL 625 MG (FIBERCON) TAB PO SCH (09:37)
[2021-10-24] MEDS: SENNOSIDES 8.6 MG (SENOKOT) TAB PO SCH ×2 (09:38→19:40)
--- NOTE | 2021-10-24 10:00 | Cardiology Progress Note ---
Progress Note-Cardiology Events since last exam Date Seen by Provider: Oct 24, 2021 Time Seen by Provider: 09:59 Events since last exam I am following him due to heart failure and atrial fibrillation. He will be undergoing an upper endoscopy later today. He states that his breathing is slightly better today. He has persistent bilateral lower extremity edema. He denies chest pain, palpitations, or syncope. Certain portions of this document may have been dictated utilizing voice recognition technology. Inherent to this technology, typographical and grammatical errors may exist. As much as I am diligent to identify and correct these mistakes, some errors may remain in the document. Vitals Last set of Vitals Signs Vital Signs 10/22/21 10/24/21 07:17 13:32 Temp 36.0 Pulse 70 Resp 20 B/P (MAP) 105/54 (71) Pulse Ox 96 O2 Delivery Nasal Cannula O2 Flow Rate 3.00 FiO2 2 Labs Labs Laboratory Tests 10/24/21 07:00 Exam Vital Signs Vital Signs Date Time Temp Pulse Resp B/P (MAP) Pulse Ox O2 Delivery O2 Flow Rate FiO2 10/24/21 13:32 36.0 70 20 105/54 (71) 96 Nasal Cannula 3.00 10/22/21 07:17 2 Physical Exam General: Alert. No acute distress. He appears short of breath when he is speaking at times. Eye: No xanthelasma. HENT: Normocephalic. Neck: Jugular venous pressure does not appear elevated. Respiratory: Lungs are clear to auscultation. Respirations are non-labored. Breath sounds are equal. Symmetrical chest wall expansion. Cardiovascular: Normal rate. Regular rhythm. No murmur. No gallop. 1+ bilateral pretibial edema. Gastrointestinal: Soft. Normal bowel sounds. Skin: Warm. Dry. Neurologic: Alert and oriented to person, place, time. Cranial nerves 3-11 grossly intact. Psychiatric: Cooperative. Appropriate mood & affect. Labs Laboratory Tests Test 10/24/21 05:25 10/24/21 07:00 Range/Units Glucometer 84 70-110 MG/DL White Blood Count 16.7 H 4.3-11.0 10^3/uL Red Blood Count 2.80 L 4.30-5.52 10^6/uL Hemoglobin 8.1 L 13.3-17.7 g/dL Hematocrit 26 L 40-54 % Mean Corpuscular Volume 92 80-99 fL Mean Corpuscular Hemoglobin 29 25-34 pg Mean Corpuscular Hemoglobin Concent 32 32-36 g/dL Red Cell Distribution Width 18.9 H 10.0-14.5 % Platelet Count 458 H 130-400 10^3/uL Mean Platelet Volume 10.0 9.0-12.2 fL Immature Granulocyte % (Auto) 2 % Neutrophils (%) (Auto) 84 H 42-75 % Lymphocytes (%) (Auto) 8 L 12-44 % Monocytes (%) (Auto) 7 0-12 % Eosinophils (%) (Auto) 0 0-10 % Basophils (%) (Auto) 0 0-10 % Neutrophils # (Auto) 14.0 H 1.8-7.8 10^3/uL Lymphocytes # (Auto) 1.3 1.0-4.0 10^3/uL Monocytes # (Auto) 1.2 H 0.0-1.0 10^3/uL Eosinophils # (Auto) 0.0 0.0-0.3 10^3/uL Basophils # (Auto) 0.0 0.0-0.1 10^3/uL Immature Granulocyte # (Auto) 0.3 H 0.0-0.1 10^3/uL Sodium Level 135 135-145 MMOL/L Potassium Level 4.2 3.6-5.0 MMOL/L Chloride Level 92 L 98-107 MMOL/L Carbon Dioxide Level 33 H 21-32 MMOL/L Anion Gap 10 5-14 MMOL/L Blood Urea Nitrogen 22 H 7-18 MG/DL Creatinine 1.15 0.60-1.30 MG/DL Estimat Glomerular Filtration Rate 64 BUN/Creatinine Ratio 19 Glucose Level 88 70-105 MG/DL Calcium Level 8.9 8.5-10.1 MG/DL Corrected Calcium 9.7 8.5-10.1 MG/DL Total Bilirubin 0.4 0.1-1.0 MG/DL Aspartate Amino Transf (AST/SGOT) 21 5-34 U/L Alanine Aminotransferase (ALT/SGPT) 36 0-55 U/L Alkaline Phosphatase 86 40-136 U/L Total Protein 5.5 L 6.4-8.2 GM/DL Albumin 3.0 L 3.2-4.5 GM/DL Diagnosis/Problems Diagnosis/Problems (1) Acute heart failure with preserved ejection fraction (HFpEF) Assessment & Plan: I started him on intravenous diuretic on 10/15. His chest x-ray from 10/16 still showed bilateral pleural effusions but his chest x-ray from 10/22 is improved. His symptoms continue to gradually improve and his edema is almost resolved. I increased his dose of diuretic on 10/23. Renal function remained stable. I I have ordered a follow-up chest x-ray for the morning. He may need home oxygen when he is discharged. (2) Paroxysmal atrial fibrillation Status: Acute Assessment & Plan: He initially was having sinus tachycardia and multifocal atrial tachycardia but towards the end of his acute hospitalization, he may have had at least a few episodes of atrial fibrillation. I placed the patient on rivaroxaban for stroke prophylaxis. He is on diltiazem for rate control. He seems to be remaining in sinus rhythm since being transferred to inpatient rehab. The patient then developed heme positive stool and anemia and rivaroxaban has been on hold. Once we have the results of the endoscopy, we may be able to get him back on his rivaroxaban. (3) Acute on chronic respiratory failure with hypoxemia Status: Acute Assessment & Plan: Probably multifactorial. We will proceed as above. He may need home oxygen at the time of discharge. (4) Primary hypertension Status: Chronic Assessment & Plan: Blood pressures are reasonably controlled with the current dose of diltiazem which he is on due to atrial fibrillation. (5) Multifocal atrial tachycardia Status: Acute Assessment & Plan: As above, he was predominantly having multifocal atrial tachycardia when he was first admitted to the acute hospital. Now he is back in sinus rhythm. I recommend he continue on diltiazem. (6) Mixed hyperlipidemia Status: Chronic Assessment & Plan: Continue atorvastatin. (7) Acute kidney injury Status: Acute Assessment & Plan: His renal function now seems to have stabilized. We will need to monitor this closely with intravenous diuretic. SHERRI CHO JR, MD Oct 24, 2021 10:00
--- NOTE | 2021-10-24 10:57 | Speech Therapy Daily Note ---
Speech Daily Progress Note Subjective Date Seen by Provider: Oct 24, 2021 Time Seen by Provider: 10:00 The patient was seated upright in his recliner, sleeping upon entrance. The patient woke easily to a verbal greeting from the clinician. The patient remained pleasant and cooperative throughout the cognitive linguistic treatment session. The patient's and daughter were present for the close of the session. Objective - Orientation: The patient was independently oriented to self, location, month, day of week, date, and year. - Functional Recall: The patient was able to independently recall his upcoming procedure, discussing appropriate questions with the clinician throughout structured conversation. - Functional Memory Tasks (recall of three to four elements): The patient was read a brief paragraph aloud (two to three sentences) by the clinician. Immediately following, the patient was asked to recall specific details from the paragraph. The patient displayed 71% accuracy, independently (+07/19). Assessment Assessment Current Status: Good Progress Treatment Plan Continue Plan of Care Speech Short Term Goals Short Term Goals Short Term Goals 1. The patient will display 80% accuracy with problem solving exercises, independently. 2. The patient will demonstrate 80% accuracy with memory exercises, independently. Time Frame-STG: One Week Speech Building Performance Consultant Goals Building Performance Consultant Goals 1. The patient will display increased cognitive linguistic abilities for improved independence with ADL's in the least restrictive environment. Time Frame: Two Weeks Speech-Plan Treatment Plan Speech Therapy Treatment Plan: Continue Plan of Care Treatment Duration: Nov 07, 2021 Frequency: 4 times per week (Four to five times per week.) Estimated Hrs Per Day: .5 hour per day Rehab Potential: Fair Pt/Family Agrees to Plan: Yes Safety Risks/Education Teaching Recipient: Patient Teaching Methods: Discussion Response to Teaching: Verbalize Understanding Education Topics Provided: Plan of Care Time Speech Therapy Time In: 10:00 Speech Therapy Time Out: 10:30 Total Billed Time: 30 Billed Treatment Time RicoTANAPIA Stephanie WILLIAMCECELIA ST Oct 24, 2021 10:57
--- NOTE | 2021-10-24 10:57 | Physical Therapy Daily Note ---
PT Daily Note-Current Subjective Pt and nurse report he is heading down for EGD and colonoscopy this am. Pt reluctantly agrees to LE ther ex in chair. Pt denies pain. Treatment modified this date due to pt scheduled for procedures under anesthesia. Mental Status Patient Orientation: Person, Place Transfers SCALE: Activities may be completed with or without assistive devices. 5-Kpabpjgavj-inwysud completes the activity by him/herself with no assistance from a helper. 5-Set-up or Clean-up Assistance-helper sets up or cleans up; patient completes activity. [place] assists only prior to or following the activity. 4-Supervision or Touching Assistance-helper provides verbal cues and/or touching/steadying and/or contact guard assistance as patient completes activity. Assistance may be provided throughout the activity or intermittently. 3-Partial/Moderate Assistance-helper does LESS THAN HALF the effort. [place] lifts, holds or supports trunk or limbs, but provides less than half the effort. 2-Substantial/Maximal Assistance-helper does MORE THAN HALF the effort. [place] lifts or holds trunk or limbs and provides more than half the effort. 8-Tnxruzhhq-gdnggj does ALL the effort. Patient does none of the effort to complete the activity. Or, the assistance of 2 or more helpers is required for the patient to complete the activity. If activity was not attempted, code reason: 7-Patient Refused. 9-Not Applicable-not attempted and the patient did not perform the activity before the current illness, exacerbation or injury. 10-Not Attempted due to Environmental Limitations-(lack of equipment, weather restraints, etc.). 88-Not Attempted due to Medical Conditions or Safety Concerns. Weight Bearing Right Lower Extremity: Right Weight Bearing/Tolerated Left Lower Extremity: Left Weight Bearing/Tolerated Exercises Supine Ex: Ankle pumps, Quad Set, Hip abd/add Supine Reps: 15 Assessment Current Status: Good Progress Pt had no trouble to with ther ex in chair. Treatment time shortened as pt was taken for his procedure, in care of nurse. Will resume normal treatment (tomorrow) as pt tolerates. PT Short Term Goals Short Term Goals Time Frame: Oct 17, 2021 Roll Left & Right: 6 Sit to lyin Lying to sitting on side of be: 4 Sit to stand: 4 (SBA) Chair/kpc-tu-ptnqs transfer: 4 (SBA) Walk 10 feet: 4 Walk 50 feet with two turns: 4 Walk 150 feet: 4 PT Longterm Goals Longterm Goals PT Braided Band Assembler Goals Time Frame: Oct 31, 2021 Roll Left & Right (QC): 6 Sit to Lying (QC): 6 Lying-Sitting on Side/Bed(QC): 6 Sit to Stand (QC): 6 Chair/Fai-sf-Jijlm Xfer(QC): 6 Toilet Transfer (QC): 6 Car Transfer (QC): 3 Does the Patient Walk: Yes Walk 10 feet (QC): 6 Walk 50ft with 2 Turns (QC): 6 Walk 150 ft (QC): 6 Walking 10ft on Uneven Surface: 4 1 Step (curb) (QC): 4 4 Steps (QC): 4 12 Steps (QC): 88 Picking up an Object (QC): 4 Wheel 50 feet with 2 turns (QC: 9 Wheel 150 feet: 9 PT Plan Treatment/Plan Treatment Plan: Continue Plan of Care Treatment Plan: Bed Mobility, Education, Functional Activity Tatiana, Functional Strength, Group Therapy, Gait, Safety, Therapeutic Exercise, Transfers Treatment Duration: Oct 31, 2021 Frequency: At least 5 of 7 days/Wk (IRF) Estimated Hrs Per Day: 1.5 hours per day Patient and/or Family Agrees t: Yes Time/GCodes Time In: 1035 Time Out: 1045 Total Billed Treatment Time: 15 Total Billed Treatment 1, ther ex 10' WOJCIECH PLASENCIA CPTA Oct 24, 2021 10:57
--- NOTE | 2021-10-24 12:34 | Progress Note-Post Operative ---
Post-Operative Progess Note Surgeon (s)/Email Designer (s) Surgeon EDVIN MARROQUIN MD Email Designer: NONE Pre-Operative Diagnosis anemia Post-Operative Diagnosis reflux esophagitis(grade 3), moderate HH(3.5-4cm), moderate gastritis with small(3mm) healed antral ulcer. chronic stage 2 ext and int hemorrhoids. Procedure & Operative Findings Date of Procedure 10/24/21 Procedure Performed/Findings EGD with bx. Colonoscopy. Anesthesia Type mac Estimated Blood Loss Estimated blood loss (mL): minimal Specimens/Packing Specimens Removed ge jxn, antrum Packing: NONE EDVIN MARROQUIN MD Oct 24, 2021 12:34
[2021-10-24 13:32] VITALS: BP 105/54
--- NOTE | 2021-10-24 14:53 | Physical Therapy Daily Note ---
PT Daily Note-Current Subjective Pt. and family members present. Pt. up in recliner. Pt. adamantly declines Pt Tx, . Invited pt. to ambulate to bthrm, do seated LE therex , si to stands etc. Pt. firm that he is not doing any therapies this afternoon, stating he is tired and uncomfortable from the morning procedures. Transfers SCALE: Activities may be completed with or without assistive devices. 0-Keddiyawbq-vfuifri completes the activity by him/herself with no assistance from a helper. 5-Set-up or Clean-up Assistance-helper sets up or cleans up; patient completes a ctivity. [place] assists only prior to or following the activity. 4-Supervision or Touching Assistance-helper provides verbal cues and/or touching/steadying and/or contact guard assistance as patient completes activity. Assistance may be provided throughout the activity or intermittently. 3-Partial/Moderate Assistance-helper does LESS THAN HALF the effort. [place] lifts, holds or supports trunk or limbs, but provides less than half the effort. 2-Substantial/Maximal Assistance-helper does MORE THAN HALF the effort. [place] lifts or holds trunk or limbs and provides more than half the effort. 0-Edchtzokt-kpdznr does ALL the effort. Patient does none of the effort to complete the activity. Or, the assistance of 2 or more helpers is required for the patient to complete the activity. If activity was not attempted, code reason: 7-Patient Refused. 9-Not Applicable-not attempted and the patient did not perform the activity before the current illness, exacerbation or injury. 10-Not Attempted due to Environmental Limitations-(lack of equipment, weather restraints, etc.). 88-Not Attempted due to Medical Conditions or Safety Concerns. Weight Bearing Right Lower Extremity: Right Weight Bearing/Tolerated Left Lower Extremity: Left Weight Bearing/Tolerated Assessment Current Status: Refused Treatment PT Short Term Goals Short Term Goals Time Frame: Oct 17, 2021 Roll Left & Right: 6 Sit to lyin Lying to sitting on side of be: 4 Sit to stand: 4 (SBA) Chair/jii-as-htgoa transfer: 4 (SBA) Walk 10 feet: 4 Walk 50 feet with two turns: 4 Walk 150 feet: 4 PT Criminal Justice Faculty Goals Criminal Justice Faculty Goals PT Snf Goals Time Frame: Oct 31, 2021 Roll Left & Right (QC): 6 Sit to Lying (QC): 6 Lying-Sitting on Side/Bed(QC): 6 Sit to Stand (QC): 6 Chair/Shu-fx-Aihle Xfer(QC): 6 Toilet Transfer (QC): 6 Car Transfer (QC): 3 Does the Patient Walk: Yes Walk 10 feet (QC): 6 Walk 50ft with 2 Turns (QC): 6 Walk 150 ft (QC): 6 Walking 10ft on Uneven Surface: 4 1 Step (curb) (QC): 4 4 Steps (QC): 4 12 Steps (QC): 88 Picking up an Object (QC): 4 Wheel 50 feet with 2 turns (QC: 9 Wheel 150 feet: 9 PT Plan Treatment/Plan Treatment Plan: Continue Plan of Care Treatment Plan: Bed Mobility, Education, Functional Activity Tatiana, Functional Strength, Group Therapy, Gait, Safety, Therapeutic Exercise, Transfers Treatment Duration: Oct 31, 2021 Frequency: At least 5 of 7 days/Wk (IRF) Estimated Hrs Per Day: 1.5 hours per day Patient and/or Family Agrees t: Yes Time/GCodes Time In: 1420 Time Out: 1425 Total Billed Treatment Time: 5 Total Billed Treatment 1,no Rx, no Chg STEPHANI MOTTA ROSE GRADER Oct 24, 2021 14:52
[2021-10-24] MEDS ORDERED: BUMETANIDE 1 MG/4 ML (BUMEX) VIAL IV SCH (17:00)
[2021-10-24] MEDS: BUMETANIDE 2.5 MG/10 ML (BUMEX) VIAL IV SCH (17:34)
[2021-10-24] MEDS: MONTELUKAST 10 MG (SINGULAIR) TAB PO SCH (20:12)
[2021-10-24 20:23] VITALS: BP 94/51
[2021-10-25 05:07] LABS: POTASSIUM 4.1 MMOL/L (3.6-5.0)
[2021-10-25 05:08] LABS: CALCIUM 8.9 MG/DL (8.5-10.1)
[2021-10-25 05:13] LABS: CREATININE SERUM 1.27 MG/DL (0.60-1.30)
[2021-10-25] MEDS ORDERED: BUDE0.5A INH (06:04)
[2021-10-25] MEDS ORDERED: GFCD10B PO (06:04)
[2021-10-25] MEDS ORDERED: TMSL.4C PO (06:04)
[2021-10-25] MEDS ORDERED: MONT-40 PO (06:04)
[2021-10-25] MEDS ORDERED: RIVA20TA2 PO (06:04)
[2021-10-25] MEDS ORDERED: LACT1CAP7 PO (06:04)
[2021-10-25] MEDS ORDERED: PANT40TA52 PO (06:04)
[2021-10-25] MEDS ORDERED: IPRA3AMP31 INH ×2 (06:04)
[2021-10-25] MEDS ORDERED: LEVO112T55 PO (06:04)
[2021-10-25] MEDS ORDERED: SNN187T PO (06:04)
[2021-10-25] MEDS ORDERED: LORA10TA7 PO (06:04)
[2021-10-25] MEDS ORDERED: BMT.25V4 IV (06:04)
[2021-10-25] MEDS ORDERED: SUCR1TAB PO (06:04)
--- NOTE | 2021-10-25 06:05 | Discharge Inst-Skilled Nursing ---
Discharge Rust-Skilled NF Reconcile Patient Problems Problems Reviewed?: Yes Patient Instructions Patient Problems: Debility Goal: Return to living independently Consult/Follow Up/Orders Follow Up Appt.: [facility] Skilled NF Admit to: [facility] Certification (SNF) I certify that SNF services are required to be given on an inpatient basis because of the above named patient's need for correction care on a continuing basis for the conditions(s) for which he/she was receiving inpatient hospital services prior to his/her transfer to the SNF. Halfway Facility Order: Nursing Services, Lacing Cutter-Evaluate & Treat, Physical Therapy-Evaluate & Treat Oxygen Delivery Method: High Flow N/C Resuscitation Status: Full Code New & Resume Previous Orders New Medications: Budesonide (Budesonide) 0.5 Mg/2 Ml Ampul.neb 0.5 MG INH RTBID for 30 Days, INHALER Bumetanide (Bumetanide) 1 Mg/4 Ml Inj 2 MG IV BID@0700,1700 for 30 Days, VIAL Guaifenesin/Codeine (Robitussin Ac (Codeine) Syrup) 10 Ml Syrp 10 ML PO Q4H PRN for COUGH for 30 Days, TSP Ipratropium/Albuterol Sulfate (Iprat-Albut 0.5-3(2.5) mg/3 ml) 3 Ml Ampul.neb 3 ML INH RTBID for 30 Days, INHALER Ipratropium/Albuterol Sulfate (Iprat-Albut 0.5-3(2.5) mg/3 ml) 3 Ml Ampul.neb 3 ML INH RTQ2H PRN for SHORTNESS OF BREATH for 30 Days, INHALER Lactobacillus Acidophilus/Pect (Acidophilus-Pectin Capsule) 1 Each Capsule 2 EACH PO ACHS for 30 Days, CAP Loratadine (Loratadine) 10 Mg Tablet 10 MG PO DAILY for 30 Days, TAB Montelukast Sodium (Montelukast Sodium) 10 Mg Tablet 10 MG PO HS for 30 Days, TAB Pantoprazole Sodium (Pantoprazole Sodium) 40 Mg Tablet.dr 40 MG PO BID for 30 Days, TAB Rivaroxaban (Xarelto Tablet) 20 Mg Tablet 20 MG PO DAILY@1700 for 30 Days, TAB Sennosides (Senna Lax) 8.6 Mg Tablet 8.6 MG PO BID for 30 Days, TAB Sucralfate (Sucralfate) 1 Gm Tablet 1 GM PO ACHS for 30 Days, TAB Tamsulosin HCl (Flomax) 0.4 Mg Cap 0.4 MG PO BID for 30 Days, CAP Continued Medications: Atorvastatin Calcium (Atorvastatin Calcium) 40 Mg Tablet 40 MG PO HS, TAB Diltiazem HCl (Diltiazem ER) 180 Mg Capsule.er 180 MG PO DAILY, CAP Levothyroxine Sodium (Levothyroxine Sodium) 112 Mcg Tablet 112 MCG PO DAILY for 30 Days, TAB (This prescription has been renewed) Discontinued Medications: Aspirin (Aspirin) 81 Mg Tab.chew 81 MG PO DAILY, TAB Famotidine (Pepcid) 20 Mg Tablet 20 MG PO DAILY, TAB Prednisone (Prednisone) 10 Mg Tab 10 MG PO DAILY, TAB FILLED 09-05-2021 #42/28 DAY SUPPLY Jody Chase Oct 25, 2021 06:04 JODY CHASE DO Oct 25, 2021 06:05
--- NOTE | 2021-10-25 06:05 | Discharge Summary ---
Diagnosis/Chief Complaint Date of Admission Oct 10, 2021 at 11:20 Date of Discharge Discharge Date: Oct 25, 2021 Discharge Diagnosis Assessment: Debility New onset AF w/recent RVR Active wheezing AECOPD Hypoxia PNA s/p septic shock CHAZ HTN Hypoxemia Urinary retention 10/13/21 Volume overload giving Bumex per Dr Ford Dark stool Hemoccult + 10/14/[address] MARROQUIN and change PPI to twice daily and added Carafate and holding Xarelto status post EGD and colonoscopy with healed antral ulcer noted Severely elevated white count without source checking C. difficile Presumed C diff colitis placed on Vanc PO but test negative? Stopping vancomycin p.o. now Plan: Monitor closely IV steroids IV abx DC cath tomorrow Supportive care 10/11/21: Monitor closely Cath DC 10/12/21: Doing extremely well Monitor closely 10/13/21: Lasix 20mgIV x [address] Colon Urinary retention management 10/14/2021: Check C. difficile Hold Xarelto PPI and Carafate 10/15/21: Appreciate Dr Ford Consult Dr Izaguirre 10/16/21: Vanc PO Monitor closely Complex case 10/17/21: Vanc PO C diff negative but still suspicious 10/18/21: Monitor wbc Decrease steroids Diuresis 10/19/2021: Supportive care Decrease steroids Continue diuresis 10/20/2021: Continue aggressive diuresis Supportive care 10/21/2021: Continue aggressive diuresis Monitor closely 10/22/2021: Supportive care Monitor electrolytes 10/23/21: Monitor progress Scopes soon OAC after scopes 10/24/2021: EGD and colonoscopy showed antral ulcer Restart oral anticoagulation? (1) Acute heart failure with preserved ejection fraction (HFpEF) Assessment & Plan: I started him on intravenous diuretic on 10/15. His chest x-ray from 10/16 still showed bilateral pleural effusions but his chest x-ray from 10/22 is improved. His symptoms continue to gradually improve and his edema is almost resolved. Unfortunately, his breathing is worse today. There has been little change in his renal function. I will double the dose of bumetanide. He may need home oxygen when he is ready for discharge. (2) Paroxysmal atrial fibrillation Status: Acute Assessment & Plan: He initially was having sinus tachycardia and multifocal atrial tachycardia but towards the end of his acute hospitalization, he may have had at least a few episodes of atrial fibrillation. I placed the patient on rivaroxaban for stroke prophylaxis. He is on diltiazem for rate control. He seems to be remaining in sinus rhythm since being transferred to inpatient rehab. The patient then developed heme positive stool and anemia and rivaroxaban has been on hold. Since I suspect the atrial fibrillation may have been brought on by his acute, noncardiac illness, he may not need lifelong anticoagulation. I would have to have him undergo cardiac monitoring following discharge. (3) Primary hypertension Status: Chronic Assessment & Plan: Blood pressures are reasonably controlled with the current dose of diltiazem which he is on due to atrial fibrillation. (4) Multifocal atrial tachycardia Status: Acute Assessment & Plan: As above, he was predominantly having multifocal atrial tachycardia when he was first admitted to the acute hospital. Now he is back in sinus rhythm. I recommend he continue on diltiazem. (5) Mixed hyperlipidemia Status: Chronic Assessment & Plan: Continue atorvastatin. (6) Acute kidney injury Status: Acute Assessment & Plan: His renal function now seems to have stabilized. We will need to monitor this closely with intravenous diuretic. Discharge Summary Discharge Physical Examination Allergies: Coded Allergies: Penicillins (Unverified Allergy, Mild, RASH, 12/23/06) Vitals & I&Os Vital Signs Date Time Temp Pulse Resp B/P (MAP) Pulse Ox O2 Delivery O2 Flow Rate FiO2 10/25/21 11:50 36.5 77 18 143/63 97 High Flow N/C 3.00 10/22/21 07:17 2 General Appearance: Alert, Oriented X3, Cooperative Respiratory: Clear to Auscultation Cardiovascular: Regular Rate Psych/Mental Status: Mental Status NL Hospital Course Was the Problem List Reviewed?: Yes Hospital course: Patient had a lengthy hospital course due to the medical complexities he had when he was moved from ICU and fourth floor to rehab. Patient required completion of IV antibiotics for presumed resistant bacteria causing pneumonia. He did not have episode of volume overload requiring aggressive IV diuresis managed by cardiology with good results. Severe anemia with Hemoccult positive stools requiring EGD and colonoscopy to be scheduled and delayed due to shortness of breath. EGD and colonoscopy were completed showing a healed antral ulcer by Dr. MARROQUIN. Xarelto was restarted. Proton pump inhibitor and PPI were maintained to help heal the ulcer. Patient did have urinary retention requiring Bal catheter and Dr. Sanchez will be managing that at [facility] where he will go for swing bed status. Due to his respiratory and cardiac complexities it was decided to go to hospital setting for swing bed and skilled therapy under my service and Dr. Flores his primary care provider due to high risk for decompensation. Labs (last 24 hrs) Laboratory Tests 10/10/21 11:20: Lab Scanned Report Referred Lab Report 10/10/21 15:21: Glucometer 163H 10/10/21 20:10: Glucometer 152H 10/11/21 05:25: Glucometer 125H 10/11/21 06:15: White Blood Count 20.1H, Red Blood Count 3.31L, Hemoglobin 9.3L, Hematocrit 29L, Mean Corpuscular Volume 88, Mean Corpuscular Hemoglobin 28, Mean Corpuscular Hemoglobin Concent 32, Red Cell Distribution Width 15.8H, Platelet Count 482H, Mean Platelet Volume 10.2, Immature Granulocyte % (Auto) 14, Neutrophils (%) (Auto) 79H, Lymphocytes (%) (Auto) 4L, Monocytes (%) (Auto) 4, Eosinophils (%) (Auto) 0, Basophils (%) (Auto) 1, Neutrophils # (Auto) 15.8H, Lymphocytes # (Auto) 0.8L, Monocytes # (Auto) 0.7, Eosinophils # (Auto) 0.0, Basophils # (Auto) 0.1, Immature Granulocyte # (Auto) 2.7H, Neutrophils % (Manual) 78, Lymphocytes % (Manual) 7, Monocytes % (Manual) 2, Metamyelocytes % 2, Myelocytes % 2, Band Neutrophils 9, Hypochromasia SLIGHT, Anisocytosis SLIGHT, Sodium Level 138, Potassium Level 3.8, Chloride Level 107, Carbon Dioxide Level 22, Anion Gap 9, Blood Urea Nitrogen 24H, Creatinine 0.78, Estimat Glomerular Filtration Rate 96, BUN/Creatinine Ratio 31, Glucose Level 128H, Calcium Level 7.8L, Corrected Calcium 9.0, Total Bilirubin 0.4, Aspartate Amino Transf (AST/SGOT) 29, Alanine Aminotransferase (ALT/SGPT) 38, Alkaline Phosphatase 79, Total Protein 5.2L, Albumin 2.5L, Procalcitonin 2.38H 10/11/21 11:00: Glucometer 136H 10/11/21 15:46: Glucometer 134H 10/11/21 20:09: Glucometer 159H 10/12/21 05:19: Glucometer 121H 10/12/21 11:14: Glucometer 179H 10/12/21 16:32: Glucometer 130H 10/12/21 20:30: Glucometer 175H 10/13/21 05:58: Glucometer 123H 10/13/21 10:11: White Blood Count 32.2*H, Red Blood Count 3.47L, Hemoglobin 9.7L, Hematocrit 31L , Mean Corpuscular Volume 90, Mean Corpuscular Hemoglobin 28, Mean Corpuscular Hemoglobin Concent 31L, Red Cell Distribution Width 16.0H, Platelet Count 697H, Mean Platelet Volume 9.9, Immature Granulocyte % (Auto) 8, Neutrophils (%) (Auto) 86H, Lymphocytes (%) (Auto) 2L, Monocytes (%) (Auto) 4, Eosinophils (%) (Auto) 0, Basophils (%) (Auto) 0, Neutrophils # (Auto) 27.5H, Lymphocytes # (Auto) 0.6L, Monocytes # (Auto) 1.4H, Eosinophils # (Auto) 0.0, Basophils # (Auto) 0.1, Immature Granulocyte # (Auto) 2.6H, Neutrophils % (Manual) 86, Lymphocytes % (Manual) 4, Monocytes % (Manual) 4, Band Neutrophils 2, Atypical Lymphocytes 4, Polychromasia SLIGHT, Basophilic Stippling SLIGHT, Anisocytosis SLIGHT, Macrocytosis SLIGHT, Crenated Cell SLIGHT, Sodium Level 136, Potassium Level 3.9, Chloride Level 105, Carbon Dioxide Level 21, Anion Gap 10, Blood Urea Nitrogen 29H, Creatinine 0.86, Estimat Glomerular Filtration Rate 86, BUN/Creatinine Ratio 34, Glucose Level 133H, Calcium Level 7.9L, Corrected Calcium 8.9, Total Bilirubin 0.5, Aspartate Amino Transf (AST/SGOT) 27, Alanine Aminotransferase (ALT/SGPT) 46, Alkaline Phosphatase 83, B-Type Natriuretic Peptide 188.1H, Total Protein 5.4L, Albumin 2.8L 10/13/21 11:12: Glucometer 123H 10/13/21 16:11: Glucometer 138H 10/13/21 20:37: Glucometer 208H 10/14/21 06:13: Glucometer 131H 10/14/21 07:26: White Blood Count 33.2*H, Red Blood Count 3.38L, Hemoglobin 9.3L, Hematocrit 30L , Mean Corpuscular Volume 89, Mean Corpuscular Hemoglobin 28, Mean Corpuscular Hemoglobin Concent 31L, Red Cell Distribution Width 16.2H, Platelet Count 692H, Mean Platelet Volume 9.9, Immature Granulocyte % (Auto) 7, Neutrophils (%) (Auto) 86H, Lymphocytes (%) (Auto) 2L, Monocytes (%) (Auto) 4, Eosinophils (%) (Auto) 0, Basophils (%) (Auto) 0, Neutrophils # (Auto) 28.6H, Lymphocytes # (A uto) 0.7L, Monocytes # (Auto) 1.5H, Eosinophils # (Auto) 0.0, Basophils # (Auto) 0.1, Immature Granulocyte # (Auto) 2.3H, Sodium Level 137, Potassium Level 3.7, Chloride Level 106, Carbon Dioxide Level 21, Anion Gap 10, Blood Urea Nitrogen 31H, Creatinine 0.92, Estimat Glomerular Filtration Rate 79, BUN/Creatinine Ratio 34, Glucose Level 120H, Calcium Level 7.9L, Corrected Calcium 8.9, Total Bilirubin 0.5, Aspartate Amino Transf (AST/SGOT) 31, Alanine Aminotransferase (ALT/SGPT) 49, Alkaline Phosphatase 76, Total Protein 5.3L, Albumin 2.8L, Procalcitonin 0.61H 10/14/21 11:34: Glucometer 152H 10/14/21 16:06: Glucometer 113H 10/14/21 16:55: Stool Occult Blood Immunoassay POSITIVEH 10/14/21 20:45: Glucometer 144H 10/15/21 05:38: Glucometer 127H 10/15/21 06:10: White Blood Count 30.2*H, Red Blood Count 2.92L, Hemoglobin 8.1L, Hematocrit 26L , Mean Corpuscular Volume 88, Mean Corpuscular Hemoglobin 28, Mean Corpuscular Hemoglobin Concent 31L, Red Cell Distribution Width 16.2H, Platelet Count 594H, Mean Platelet Volume 9.7, Immature Granulocyte % (Auto) 5, Neutrophils (%) (Auto) 90H, Lymphocytes (%) (Auto) 2L, Monocytes (%) (Auto) 3, Eosinophils (%) (Auto) 0, Basophils (%) (Auto) 0, Neutrophils # (Auto) 27.0H, Lymphocytes # (Auto) 0.6L, Monocytes # (Auto) 0.9, Eosinophils # (Auto) 0.0, Basophils # (Auto) 0.1, Immature Granulocyte # (Auto) 1.6H, Sodium Level 134L, Potassium Level 4.4, Chloride Level 104, Carbon Dioxide Level 24, Anion Gap 6, Blood Urea Nitrogen 33H, Creatinine 0.81, Estimat Glomerular Filtration Rate 92, BUN/Creatinine Ratio 41, Glucose Level 132H, Calcium Level 7.6L, Corrected Calcium 8.7, Iron Level 22L, Total Bilirubin 0.4, Aspartate Amino Transf (AST/SGOT) 20, Alanine Aminotransferase (ALT/SGPT) 41, Alkaline Phosphatase 72, Total Protein 4.9L, Albumin 2.6L 10/15/21 11:43: Glucometer 108 10/15/21 16:07: Glucometer 130H 10/15/21 20:15: Glucometer 141H 10/16/21 05:24: Sodium Level 136, Potassium Level 4.4, Chloride Level 103, Carbon Dioxide Level 24, Anion Gap 9, Blood Urea Nitrogen 31H, Creatinine 0.85, Estimat Glomerular Filtration Rate 87, BUN/Creatinine Ratio 36, Glucose Level 133H, Calcium Level 7.7L, Corrected Calcium 8.7, Total Bilirubin 0.4, Aspartate Amino Transf (AST/SGOT) 22, Alanine Aminotransferase (ALT/SGPT) 45, Alkaline Phosphatase 75, Total Protein 5.1L, Albumin 2.8L, Procalcitonin 0.36H 10/16/21 06:02: White Blood Count 33.6*H, Red Blood Count 2.97L, Hemoglobin 8.3L, Hematocrit 26L , Mean Corpuscular Volume 88, Mean Corpuscular Hemoglobin 28, Mean Corpuscular Hemoglobin Concent 32, Red Cell Distribution Width 16.3H, Platelet Count 623H, Mean Platelet Volume 9.8, Immature Granulocyte % (Auto) 4, Neutrophils (%) (Auto) 91H, Lymphocytes (%) (Auto) 2L, Monocytes (%) (Auto) 3, Eosinophils (%) (Auto) 0, Basophils (%) (Auto) 0, Neutrophils # (Auto) 30.4H, Lymphocytes # (Au to) 0.7L, Monocytes # (Auto) 1.1H, Eosinophils # (Auto) 0.0, Basophils # (Auto) 0.1, Immature Granulocyte # (Auto) 1.3H, Vitamin B12 Level 650 10/16/21 10:57: Glucometer 189H 10/16/21 15:50: Glucometer 132H 10/16/21 20:18: Glucometer 106 10/17/21 05:39: Glucometer 82 10/17/21 05:55: White Blood Count 28.3H, Red Blood Count 2.91L, Hemoglobin 8.0L, Hematocrit 26L, Mean Corpuscular Volume 88, Mean Corpuscular Hemoglobin 28, Mean Corpuscular Hemoglobin Concent 31L, Red Cell Distribution Width 16.5H, Platelet Count 621H, Mean Platelet Volume 9.7, Immature Granulocyte % (Auto) 3, Neutrophils (%) (Auto) 87H, Lymphocytes (%) (Auto) 4L, Monocytes (%) (Auto) 5, Eosinophils (%) (Auto) 0, Basophils (%) (Auto) 0, Neutrophils # (Auto) 24.7H, Lymphocytes # (Auto) 1.1, Monocytes # (Auto) 1.5H, Eosinophils # (Auto) 0.0, Basophils # (Aut o) 0.1, Immature Granulocyte # (Auto) 0.9H, Sodium Level 135, Potassium Level 4.0, Chloride Level 103, Carbon Dioxide Level 24, Anion Gap 8, Blood Urea Nitrogen 29H, Creatinine 0.92, Estimat Glomerular Filtration Rate 79, BUN/Creatinine Ratio 32, Glucose Level 87, Calcium Level 7.6L, Corrected Calcium 8.6, Total Bilirubin 0.4, Aspartate Amino Transf (AST/SGOT) 27, Alanine Aminotransferase (ALT/SGPT) 47, Alkaline Phosphatase 67, Total Protein 4.9L, Albumin 2.7L 10/17/21 11:49: Glucometer 115H 10/17/21 15:24: Glucometer 134H 10/17/21 20:19: Glucometer 111H 10/18/21 05:40: White Blood Count 23.4H, Red Blood Count 2.84L, Hemoglobin 8.1L, Hematocrit 25L, Mean Corpuscular Volume 89, Mean Corpuscular Hemoglobin 29, Mean Corpuscular Hemoglobin Concent 32, Red Cell Distribution Width 16.4H, Platelet Count 593H, Mean Platelet Volume 9.7, Immature Granulocyte % (Auto) 3, Neutrophils (%) (Auto) 83H, Lymphocytes (%) (Auto) 6L, Monocytes (%) (Auto) 8, Eosinophils (%) (Auto) 0, Basophils (%) (Auto) 0, Neutrophils # (Auto) 19.5H, Lymphocytes # (Auto) 1.4, Monocytes # (Auto) 1.8H, Eosinophils # (Auto) 0.0, Basophils # (Auto) 0.0, Immature Granulocyte # (Auto) 0.7H, Sodium Level 135, Potassium Level 4.3, Chloride Level 101, Carbon Dioxide Level 26, Anion Gap 8, Blood Urea Nitrogen 26H, Creatinine 1.09, Estimat Glomerular Filtration Rate 65, BUN/Creatinine Ratio 24, Glucose Level 89, Calcium Level 7.7L, Corrected Calcium 8.7, Total Bilirubin 0.3, Aspartate Amino Transf (AST/SGOT) 28, Alanine Aminotransferase (ALT/SGPT) 49, Alkaline Phosphatase 79, Total Protein 4.7L, Albumin 2.7L 10/18/21 05:52: Glucometer 82 10/18/21 10:45: Glucometer 168H 10/18/21 15:50: Glucometer 135H 10/18/21 20:00: Glucometer 149H 10/19/21 05:50: White Blood Count 21.6H, Red Blood Count 2.85L, Hemoglobin 7.9L, Hematocrit 26L, Mean Corpuscular Volume 90, Mean Corpuscular Hemoglobin 28, Mean Corpuscular Hemoglobin Concent 31L, Red Cell Distribution Width 16.7H, Platelet Count 578H, Mean Platelet Volume 9.6, Immature Granulocyte % (Auto) 3, Neutrophils (%) (Auto) 82H, Lymphocytes (%) (Auto) 8L, Monocytes (%) (Auto) 8, Eosinophils (%) (Auto) 0, Basophils (%) (Auto) 0, Neutrophils # (Auto) 17.7H, Lymphocytes # (Auto) 1.7, Monocytes # (Auto) 1.7H, Eosinophils # (Auto) 0.0, Basophils # (Auto) 0.0, Immature Granulocyte # (Auto) 0.6H, Neutrophils % (Manual) 87, Lymphocytes % (Manual) 9, Monocytes % (Manual) 3, Nucleated Red Blood Cells 1, A typical Lymphocytes 1, Dohle Bodies , Anisocytosis SLIGHT, Formoso Cells SLIGHT, Acanthocytes SLIGHT, Sodium Level 137, Potassium Level 3.8, Chloride Level 101, Carbon Dioxide Level 27, Anion Gap 9, Blood Urea Nitrogen 24H, Creatinine 1.05, Estimat Glomerular Filtration Rate 72, BUN/Creatinine Ratio 23, Glucose Level 84, Calcium Level 7.7L, Corrected Calcium 8.7, Total Bilirubin 0.3, Aspartate Amino Transf (AST/SGOT) 24, Alanine Aminotransferase (ALT/SGPT) 48, Alkaline Phosphatase 75, Total Protein 4.6L, Albumin 2.8L 10/19/21 05:52: Glucometer 86 10/19/21 10:49: Glucometer 157H 10/19/21 16:03: Glucometer 122H 10/19/21 20:11: Glucometer 116H 10/20/21 06:10: Sodium Level 132L, Potassium Level 3.8, Chloride Level 97L, Carbon Dioxide Level 28, Anion Gap 7, Blood Urea Nitrogen 19H, Creatinine 0.93, Estimat Glomerular Filtration Rate 83, BUN/Creatinine Ratio 20, Glucose Level 91, Calcium Level 7.8L 10/20/21 06:11: Glucometer 92 10/20/21 10:56: Glucometer 162H 10/20/21 15:14: Glucometer 139H 10/20/21 20:18: Glucometer 140H 10/21/21 05:58: Glucometer 78 10/21/21 08:53: Glucometer 201H 10/21/21 11:06: Glucometer 182H 10/21/21 15:29: Glucometer 119H 10/21/21 20:07: Glucometer 122H 10/22/21 04:25: White Blood Count 17.5H, Red Blood Count 2.84L, Hemoglobin 8.1L, Hematocrit 26L, Mean Corpuscular Volume 91, Mean Corpuscular Hemoglobin 29, Mean Corpuscular Hemoglobin Concent 31L, Red Cell Distribution Width 17.8H, Platelet Count 518H, Mean Platelet Volume 9.6, Immature Granulocyte % (Auto) 2, Neutrophils (%) (Auto) 81H, Lymphocytes (%) (Auto) 9L, Monocytes (%) (Auto) 7, Eosinophils (%) (Auto) 0, Basophils (%) (Auto) 0, Neutrophils # (Auto) 14.2H, Lymphocytes # (Auto) 1.6, Monocytes # (Auto) 1.3H, Eosinophils # (Auto) 0.1, Basophils # (Auto) 0.0, Immature Granulocyte # (Auto) 0.4H, Sodium Level 133L, Potassium Level 4.0, Chloride Level 96L, Carbon Dioxide Level 29, Anion Gap 8, Blood Urea Nitrogen 20H, Creatinine 1.16, Estimat Glomerular Filtration Rate 64, BUN/Creatinine Ratio 17, Glucose Level 88, Calcium Level 8.5, Corrected Calcium 9.5, Magnesium Level 2.1, Total Bilirubin 0.3, Aspartate Amino Transf (AST/SGOT) 17, Alanine Aminotransferase (ALT/SGPT) 38, Alkaline Phosphatase 85, Total Protein 4.9L, Albumin 2.8L 10/22/21 11:07: Glucometer 179H 10/22/21 15:45: Glucometer 142H 10/22/21 20:30: Glucometer 162H 10/23/21 05:53: Sodium Level 134L, Potassium Level 3.9, Chloride Level 94L, Carbon Dioxide Level 29, Anion Gap 11, Blood Urea Nitrogen 22H, Creatinine 1.11, Estimat Glomerular Filtration Rate 67, BUN/Creatinine Ratio 20, Glucose Level 85, Calcium Level 8.5 10/23/21 12:30: SARS-CoV-2 RNA (RT-PCR) Not Detected 10/24/21 05:25: Glucometer 84 10/24/21 07:00: White Blood Count 16.7H, Red Blood Count 2.80L, Hemoglobin 8.1L, Hematocrit 26L, Mean Corpuscular Volume 92, Mean Corpuscular Hemoglobin 29, Mean Corpuscular Hemoglobin Concent 32, Red Cell Distribution Width 18.9H, Platelet Count 458H, Mean Platelet Volume 10.0, Immature Granulocyte % (Auto) 2, Neutrophils (%) (Auto) 84H, Lymphocytes (%) (Auto) 8L, Monocytes (%) (Auto) 7, Eosinophils (%) (Auto) 0, Basophils (%) (Auto) 0, Neutrophils # (Auto) 14.0H, Lymphocytes # (Auto) 1.3, Monocytes # (Auto) 1.2H, Eosinophils # (Auto) 0.0, Basophils # (Auto) 0.0, Immature Granulocyte # (Auto) 0.3H, Sodium Level 135, Potassium Level 4.2, Chloride Level 92L, Carbon Dioxide Level 33H, Anion Gap 10, Blood Urea Nitrogen 22H, Creatinine 1.15, Estimat Glomerular Filtration Rate 64, BUN/Creatinine Ratio 19, Glucose Level 88, Calcium Level 8.9, Corrected Calcium 9.7, Total Bilirubin 0.4, Aspartate Amino Transf (AST/SGOT) 21, Alanine Aminotransferase (ALT/SGPT) 36, Alkaline Phosphatase 86, Total Protein 5.5L, Albumin 3.0L 10/25/21 04:45: Sodium Level 130L, Potassium Level 4.1, Chloride Level 89L, Carbon Dioxide Level 30, Anion Gap 11, Blood Urea Nitrogen 26H, Creatinine 1.27, Estimat Glomerular Filtration Rate 57, BUN/Creatinine Ratio 20, Glucose Level 95, Calcium Level 8.9 Microbiology 10/15/21 C. difficile DNA Amplification - Final, Complete Pending Labs Microbiology Date/Time Source Procedure Growth Status 10/15/21 20:44 Stool C. difficile DNA Amplification - Final Complete 10/15/21 20:22 Stool C. difficile GDH Antigen & Toxins - Final Complete Laboratory Tests 10/10/21 11:20: Lab Scanned Report Referred Lab Report 10/10/21 15:21: Glucometer 163 10/10/21 20:10: Glucometer 152 10/11/21 05:25: Glucometer 125 10/11/21 06:15: White Blood Count 20.1, Red Blood Count 3.31, Hemoglobin 9.3, Hematocrit 29, Mean Corpuscular Volume 88, Mean Corpuscular Hemoglobin 28, Mean Corpuscular Hemoglobin Concent 32, Red Cell Distribution Width 15.8, Platelet Count 482, Mean Platelet Volume 10.2, Immature Granulocyte % (Auto) 14, Neutrophils (%) (Auto) 79, Lymphocytes (%) (Auto) 4, Monocytes (%) (Auto) 4, Eosinophils (%) (Auto) 0, Basophils (%) (Auto) 1, Neutrophils # (Auto) 15.8, Lymphocytes # (Auto) 0.8, Monocytes # (Auto) 0.7, Eosinophils # (Auto) 0.0, Basophils # (Auto) 0.1, Immature Granulocyte # (Auto) 2.7, Neutrophils % (Manual) 78, Lymphocytes % (Manual) 7, Monocytes % (Manual) 2, Metamyelocytes % 2, Myelocytes % 2, Band Neutrophils 9, Hypochromasia SLIGHT, Anisocytosis SLIGHT, Sodium Level 138, Potassium Level 3.8, Chloride Level 107, Carbon Dioxide Level 22, Anion Gap 9, Blood Urea Nitrogen 24, Creatinine 0.78, Estimat Glomerular Filtration Rate 96, BUN/Creatinine Ratio 31, Glucose Level 128, Calcium Level 7.8, Corrected Calcium 9.0, Total Bilirubin 0.4, Aspartate Amino Transf (AST/SGOT) 29, Alanine Aminotransferase (ALT/SGPT) 38, Alkaline Phosphatase 79, Total Protein 5.2, Albumin 2.5, Procalcitonin 2.38 10/11/21 11:00: Glucometer 136 10/11/21 15:46: Glucometer 134 10/11/21 20:09: Glucometer 159 10/12/21 05:19: Glucometer 121 10/12/21 11:14: Glucometer 179 10/12/21 16:32: Glucometer 130 10/12/21 20:30: Glucometer 175 10/13/21 05:58: Glucometer 123 10/13/21 10:11: White Blood Count 32.2, Red Blood Count 3.47, Hemoglobin 9.7, Hematocrit 31, Mean Corpuscular Volume 90, Mean Corpuscular Hemoglobin 28, Mean Corpuscular Hemoglobin Concent 31, Red Cell Distribution Width 16.0, Platelet Count 697, Mean Platelet Volume 9.9, Immature Granulocyte % (Auto) 8, Neutrophils (%) (Auto) 86, Lymphocytes (%) (Auto) 2, Monocytes (%) (Auto) 4, Eosinophils (%) (Auto) 0, Basophils (%) (Auto) 0, Neutrophils # (Auto) 27.5, Lymphocytes # (A uto) 0.6, Monocytes # (Auto) 1.4, Eosinophils # (Auto) 0.0, Basophils # (Auto) 0.1, Immature Granulocyte # (Auto) 2.6, Neutrophils % (Manual) 86, Lymphocytes % (Manual) 4, Monocytes % (Manual) 4, Band Neutrophils 2, Atypical Lymphocytes 4, Polychromasia SLIGHT, Basophilic Stippling SLIGHT, Anisocytosis SLIGHT, Macrocytosis SLIGHT, Crenated Cell SLIGHT, Sodium Level 136, Potassium Level 3.9, Chloride Level 105, Carbon Dioxide Level 21, Anion Gap 10, Blood Urea Nitrogen 29, Creatinine 0.86, Estimat Glomerular Filtration Rate 86, BUN/Creatinine Ratio 34, Glucose Level 133, Calcium Level 7.9, Corrected Calcium 8.9, Total Bilirubin 0.5, Aspartate Amino Transf (AST/SGOT) 27, Alanine Aminotransferase (ALT/SGPT) 46, Alkaline Phosphatase 83, B-Type Natriuretic Peptide 188.1, Total Protein 5.4, Albumin 2.8 10/13/21 11:12: Glucometer 123 10/13/21 16:11: Glucometer 138 10/13/21 20:37: Glucometer 208 10/14/21 06:13: Glucometer 131 10/14/21 07:26: White Blood Count 33.2, Red Blood Count 3.38, Hemoglobin 9.3, Hematocrit 30, Mean Corpuscular Volume 89, Mean Corpuscular Hemoglobin 28, Mean Corpuscular Hemoglobin Concent 31, Red Cell Distribution Width 16.2, Platelet Count 692, Mean Platelet Volume 9.9, Immature Granulocyte % (Auto) 7, Neutrophils (%) (Auto) 86, Lymphocytes (%) (Auto) 2, Monocytes (%) (Auto) 4, Eosinophils (%) (Auto) 0, Basophils (%) (Auto) 0, Neutrophils # (Auto) 28.6, Lymphocytes # (Auto) 0.7, Monocytes # (Auto) 1.5, Eosinophils # (Auto) 0.0, Basophils # (Auto) 0.1, Immature Granulocyte # (Auto) 2.3, Sodium Level 137, Potassium Level 3.7, Chloride Level 106, Carbon Dioxide Level 21, Anion Gap 10, Blood Urea Nitrogen 31, Creatinine 0.92, Estimat Glomerular Filtration Rate 79, BUN/Creatinine Ratio 34, Glucose Level 120, Calcium Level 7.9, Corrected Calcium 8.9, Total Bilirubin 0.5, Aspartate Amino Transf (AST/SGOT) 31, Alanine Aminotransferase (ALT/SGPT) 49, Alkaline Phosphatase 76, Total Protein 5.3, Albumin 2.8, Procalcitonin 0.61 10/14/21 11:34: Glucometer 152 10/14/21 16:06: Glucometer 113 10/14/21 16:55: Stool Occult Blood Immunoassay POSITIVE 10/14/21 20:45: Glucometer 144 10/15/21 05:38: Glucometer 127 10/15/21 06:10: White Blood Count 30.2, Red Blood Count 2.92, Hemoglobin 8.1, Hematocrit 26, Mean Corpuscular Volume 88, Mean Corpuscular Hemoglobin 28, Mean Corpuscular Hemoglobin Concent 31, Red Cell Distribution Width 16.2, Platelet Count 594, Mean Platelet Volume 9.7, Immature Granulocyte % (Auto) 5, Neutrophils (%) (Auto) 90, Lymphocytes (%) (Auto) 2, Monocytes (%) (Auto) 3, Eosinophils (%) (Auto) 0, Basophils (%) (Auto) 0, Neutrophils # (Auto) 27.0, Lymphocytes # (Auto) 0.6, Monocytes # (Auto) 0.9, Eosinophils # (Auto) 0.0, Basophils # (Auto) 0.1, Immature Granulocyte # (Auto) 1.6, Sodium Level 134, Potassium Level 4.4, Chloride Level 104, Carbon Dioxide Level 24, Anion Gap 6, Blood Urea Nitrogen 3 3, Creatinine 0.81, Estimat Glomerular Filtration Rate 92, BUN/Creatinine Ratio 41, Glucose Level 132, Calcium Level 7.6, Corrected Calcium 8.7, Iron Level 22, Total Bilirubin 0.4, Aspartate Amino Transf (AST/SGOT) 20, Alanine Aminotransferase (ALT/SGPT) 41, Alkaline Phosphatase 72, Total Protein 4.9, Albumin 2.6 10/15/21 11:43: Glucometer 108 10/15/21 16:07: Glucometer 130 10/15/21 20:15: Glucometer 141 10/16/21 05:24: Sodium Level 136, Potassium Level 4.4, Chloride Level 103, Carbon Dioxide Level 24, Anion Gap 9, Blood Urea Nitrogen 31, Creatinine 0.85, Estimat Glomerular Filtration Rate 87, BUN/Creatinine Ratio 36, Glucose Level 133, Calcium Level 7.7, Corrected Calcium 8.7, Total Bilirubin 0.4, Aspartate Amino Transf (AST/SGOT) 22, Alanine Aminotransferase (ALT/SGPT) 45, Alkaline Phosphatase 75, Total Protein 5.1, Albumin 2.8, Procalcitonin 0.36 10/16/21 06:02: White Blood Count 33.6, Red Blood Count 2.97, Hemoglobin 8.3, Hematocrit 26, Mean Corpuscular Volume 88, Mean Corpuscular Hemoglobin 28, Mean Corpuscular Hemoglobin Concent 32, Red Cell Distribution Width 16.3, Platelet Count 623, Mean Platelet Volume 9.8, Immature Granulocyte % (Auto) 4, Neutrophils (%) (Auto) 91, Lymphocytes (%) (Auto) 2, Monocytes (%) (Auto) 3, Eosinophils (%) (Auto) 0, Basophils (%) (Auto) 0, Neutrophils # (Auto) 30.4, Lymphocytes # (Auto) 0.7, Monocytes # (Auto) 1.1, Eosinophils # (Auto) 0.0, Basophils # (Auto) 0.1, Immature Granulocyte # (Auto) 1.3, Vitamin B12 Level 650 10/16/21 10:57: Glucometer 189 10/16/21 15:50: Glucometer 132 10/16/21 20:18: Glucometer 106 10/17/21 05:39: Glucometer 82 10/17/21 05:55: White Blood Count 28.3, Red Blood Count 2.91, Hemoglobin 8.0, Hematocrit 26, Mean Corpuscular Volume 88, Mean Corpuscular Hemoglobin 28, Mean Corpuscular Hemoglobin Concent 31, Red Cell Distribution Width 16.5, Platelet Count 621, Mean Platelet Volume 9.7, Immature Granulocyte % (Auto) 3, Neutrophils (%) (Auto) 87, Lymphocytes (%) (Auto) 4, Monocytes (%) (Auto) 5, Eosinophils (%) (Auto) 0, Basophils (%) (Auto) 0, Neutrophils # (Auto) 24.7, Lymphocytes # (Auto) 1.1, Monocytes # (Auto) 1.5, Eosinophils # (Auto) 0.0, Basophils # (Auto) 0.1, Immature Granulocyte # (Auto) 0.9, Sodium Level 135, Potassium Level 4.0, Chloride Level 103, Carbon Dioxide Level 24, Anion Gap 8, Blood Urea Nitrogen 29, Creatinine 0.92, Estimat Glomerular Filtration Rate 79, BUN/Creatinine Ratio 32, Glucose Level 87, Calcium Level 7.6, Corrected Calcium 8.6, Total Bilirubin 0.4, Aspartate Amino Transf (AST/SGOT) 27, Alanine Aminotransferase (ALT/SGPT) 47, Alkaline Phosphatase 67, Total Protein 4.9, Albumin 2.7 10/17/21 11:49: Glucometer 115 10/17/21 15:24: Glucometer 134 10/17/21 20:19: Glucometer 111 10/18/21 05:40: White Blood Count 23.4, Red Blood Count 2.84, Hemoglobin 8.1, Hematocrit 25, Mean Corpuscular Volume 89, Mean Corpuscular Hemoglobin 29, Mean Corpuscular Hemoglobin Concent 32, Red Cell Distribution Width 16.4, Platelet Count 593, Mean Platelet Volume 9.7, Immature Granulocyte % (Auto) 3, Neutrophils (%) (Auto) 83, Lymphocytes (%) (Auto) 6, Monocytes (%) (Auto) 8, Eosinophils (%) (Auto) 0, Basophils (%) (Auto) 0, Neutrophils # (Auto) 19.5, Lymphocytes # (Auto) 1.4, Monocytes # (Auto) 1.8, Eosinophils # (Auto) 0.0, Basophils # (Auto) 0.0, Immature Granulocyte # (Auto) 0.7, Sodium Level 135, Potassium Level 4.3, Chloride Level 101, Carbon Dioxide Level 26, Anion Gap 8, Blood Urea Nitrogen 26, Creatinine 1.09, Estimat Glomerular Filtration Rate 65, BUN/Creatinine Ratio 24, Glucose Level 89, Calcium Level 7.7, Corrected Calcium 8.7, Total Bilirubin 0.3, Aspartate Amino Transf (AST/SGOT) 28, Alanine Aminotransferase (ALT/SGPT) 49, Alkaline Phosphatase 79, Total Protein 4.7, Albumin 2.7 10/18/21 05:52: Glucometer 82 10/18/21 10:45: Glucometer 168 10/18/21 15:50: Glucometer 135 10/18/21 20:00: Glucometer 149 10/19/21 05:50: White Blood Count 21.6, Red Blood Count 2.85, Hemoglobin 7.9, Hematocrit 26, Mean Corpuscular Volume 90, Mean Corpuscular Hemoglobin 28, Mean Corpuscular Hemoglobin Concent 31, Red Cell Distribution Width 16.7, Platelet Count 578, Mean Platelet Volume 9.6, Immature Granulocyte % (Auto) 3, Neutrophils (%) (Auto) 82, Lymphocytes (%) (Auto) 8, Monocytes (%) (Auto) 8, Eosinophils (%) (Auto) 0, Basophils (%) (Auto) 0, Neutrophils # (Auto) 17.7, Lymphocytes # (Auto) 1.7, Monocytes # (Auto) 1.7, Eosinophils # (Auto) 0.0, Basophils # (Auto) 0.0, Immature Granulocyte # (Auto) 0.6, Neutrophils % (Manual) 87, Lymphocytes % (Manual) 9, Monocytes % (Manual) 3, Nucleated Red Blood Cells 1, Atypical Lymphocytes 1, Dohle Bodies , Anisocytosis SLIGHT, Radha Cells SLIGHT, Acanthocytes SLIGHT, Sodium Level 137, Potassium Level 3.8, Chloride Level 101, Carbon Dioxide Level 27, Anion Gap 9, Blood Urea Nitrogen 24, Creatinine 1.05, Estimat Glomerular Filtration Rate 72, BUN/Creatinine Ratio 23, Glucose Level 84, Calcium Level 7.7, Corrected Calcium 8.7, Total Bilirubin 0.3, Aspartate Amino Transf (AST/SGOT) 24, Alanine Aminotransferase (ALT/SGPT) 48, Alkaline Phosphatase 75, Total Protein 4.6, Albumin 2.8 10/19/21 05:52: Glucometer 86 10/19/21 10:49: Glucometer 157 10/19/21 16:03: Glucometer 122 10/19/21 20:11: Glucometer 116 10/20/21 06:10: Sodium Level 132, Potassium Level 3.8, Chloride Level 97, Carbon Dioxide Level 28, Anion Gap 7, Blood Urea Nitrogen 19, Creatinine 0.93, Estimat Glomerular Filtration Rate 83, BUN/Creatinine Ratio 20, Glucose Level 91, Calcium Level 7.8 10/20/21 06:11: Glucometer 92 10/20/21 10:56: Glucometer 162 10/20/21 15:14: Glucometer 139 10/20/21 20:18: Glucometer 140 10/21/21 05:58: Glucometer 78 10/21/21 08:53: Glucometer 201 10/21/21 11:06: Glucometer 182 10/21/21 15:29: Glucometer 119 10/21/21 20:07: Glucometer 122 10/22/21 04:25: White Blood Count 17.5, Red Blood Count 2.84, Hemoglobin 8.1, Hematocrit 26, Mean Corpuscular Volume 91, Mean Corpuscular Hemoglobin 29, Mean Corpuscular Hemoglobin Concent 31, Red Cell Distribution Width 17.8, Platelet Count 518, Mean Platelet Volume 9.6, Immature Granulocyte % (Auto) 2, Neutrophils (%) (Auto) 81, Lymphocytes (%) (Auto) 9, Monocytes (%) (Auto) 7, Eosinophils (%) (Auto) 0, Basophils (%) (Auto) 0, Neutrophils # (Auto) 14.2, Lymphocytes # (Auto) 1.6, Monocytes # (Auto) 1.3, Eosinophils # (Auto) 0.1, Basophils # (Auto) 0.0, Immature Granulocyte # (Auto) 0.4, Sodium Level 133, Potassium Level 4.0, Chloride Level 96, Carbon Dioxide Level 29, Anion Gap 8, Blood Urea Nitrogen 20, Creatinine 1.16, Estimat Glomerular Filtration Rate 64, BUN/Creatinine Ratio 17, Glucose Level 88, Calcium Level 8.5, Corrected Calcium 9.5, Magnesium Level 2.1, Total Bilirubin 0.3, Aspartate Amino Transf (AST/SGOT) 17, Alanine Aminotransferase (ALT/SGPT) 38, Alkaline Phosphatase 85, Total Protein 4.9, [place] min 2.8 10/22/21 11:07: Glucometer 179 10/22/21 15:45: Glucometer 142 10/22/21 20:30: Glucometer 162 10/23/21 05:53: Sodium Level 134, Potassium Level 3.9, Chloride Level 94, Carbon Dioxide Level 29, Anion Gap 11, Blood Urea Nitrogen 22, Creatinine 1.11, Estimat Glomerular Filtration Rate 67, BUN/Creatinine Ratio 20, Glucose Level 85, Calcium Level 8.5 10/23/21 12:30: SARS-CoV-2 RNA (RT-PCR) Not Detected 10/24/21 05:25: Glucometer 84 10/24/21 07:00: White Blood Count 16.7, Red Blood Count 2.80, Hemoglobin 8.1, Hematocrit 26, Mean Corpuscular Volume 92, Mean Corpuscular Hemoglobin 29, Mean Corpuscular Hemoglobin Concent 32, Red Cell Distribution Width 18.9, Platelet Count 458, Mean Platelet Volume 10.0, Immature Granulocyte % (Auto) 2, Neutrophils (%) (Auto) 84, Lymphocytes (%) (Auto) 8, Monocytes (%) (Auto) 7, Eosinophils (%) (Auto) 0, Basophils (%) (Auto) 0, Neutrophils # (Auto) 14.0, Lymphocytes # (Auto) 1.3, Monocytes # (Auto) 1.2, Eosinophils # (Auto) 0.0, Basophils # (Auto) 0.0, Immature Granulocyte # (Auto) 0.3, Sodium Level 135, Potassium Level 4.2, Chloride Level 92, Carbon Dioxide Level 33, Anion Gap 10, Blood Urea Nitrogen 22, Creatinine 1.15, Estimat Glomerular Filtration Rate 64, BUN/Creatinine Ratio 19, Glucose Level 88, Calcium Level 8.9, Corrected Calcium 9.7, Total Bilirubin 0.4, Aspartate Amino Transf (AST/SGOT) 21, Alanine Aminotransferase (ALT/SGPT) 36, Alkaline Phosphatase 86, Total Protein 5.5, Albumin 3.0 10/25/21 04:45: Sodium Level 130, Potassium Level 4.1, Chloride Level 89, Carbon Dioxide Level 30, Anion Gap 11, Blood Urea Nitrogen 26, Creatinine 1.27, Estimat Glomerular Filtration Rate 57, BUN/Creatinine Ratio 20, Glucose Level 95, Calcium Level 8.9 Discharge Home Medications: Active Scripts Active Acidophilus-Pectin Capsule (Lactobacillus Acidophilus/Pect) 1 Each Capsule 2 Each PO ACHS 30 Days Pantoprazole Sodium 40 Mg Tablet.dr 40 Mg PO BID 30 Days Sucralfate 1 Gm Tablet 1 Gm PO ACHS 30 Days Senna Lax (Sennosides) 8.6 Mg Tablet 8.6 Mg PO BID 30 Days Montelukast Sodium 10 Mg Tablet 10 Mg PO HS 30 Days Robitussin Ac (Codeine) Syrup (Guaifenesin/Codeine Phosphate) 10 Ml Syrp 10 Ml PO Q4H PRN 30 Days Budesonide 0.5 Mg/2 Ml Ampul.neb 0.5 Mg INH RTBID 30 Days Bumetanide 1 Mg/4 Ml Inj 2 Mg IV BID@0700,1700 30 Days Xarelto Tablet (Rivaroxaban) 20 Mg Tablet 20 Mg PO DAILY@1700 30 Days Flomax (Tamsulosin HCl) 0.4 Mg Cap 0.4 Mg PO BID 30 Days Iprat-Albut 0.5-3(2.5) mg/3 ml (Ipratropium/Albuterol Sulfate) 3 Ml Ampul.neb 3 Ml INH RTQ2H PRN 30 Days Iprat-Albut 0.5-3(2.5) mg/3 ml (Ipratropium/Albuterol Sulfate) 3 Ml Ampul.neb 3 Ml INH RTBID 30 Days Loratadine 10 Mg Tablet 10 Mg PO DAILY 30 Days Levothyroxine Sodium 112 Mcg Tablet 112 Mcg PO DAILY 30 Days Reported Diltiazem ER (Diltiazem HCl) 180 Mg Capsule.er 180 Mg PO DAILY Atorvastatin Calcium 40 Mg Tablet 40 Mg PO HS Instructions to patient/family Please see electronic discharge instructions given to patient. Diagnosis/Problems Diagnosis/Problems (1) Debility (2) Septic shock Status: Acute (3) Pneumonia Status: Acute (4) Primary hypertension Status: Chronic (5) Mixed hyperlipidemia Status: Chronic (6) Obesity Status: Chronic (7) Paroxysmal atrial fibrillation Status: Acute (8) COPD exacerbation (9) Atrial fibrillation with RVR (10) Acute kidney injury Status: Acute (11) NSTEMI (non-ST elevation myocardial infarction) Status: Acute (12) Acute on chronic respiratory failure with hypoxemia Status: Acute FRANCISCO BHAKTA DO Oct 25, 2021 06:05
[2021-10-25] MEDS: SUCRALFATE 1 GM (CARAFATE) TAB PO SCH (06:34)
[2021-10-25] MEDS: BUMETANIDE 2.5 MG/10 ML (BUMEX) VIAL IV SCH (06:34)
[2021-10-25] MEDS: CATHETER FLUSH 10 ML SYR IV SCH (06:34)
[2021-10-25] MEDS: LACTOBACILLUS ACIDOPHILUS (PROBIOTIC) CAPSULE PO SCH (06:34)
[2021-10-25 07:18] VITALS: BP 143/63
[2021-10-25] MEDS: RT-BUDESONIDE NEBS 0.5 MG/2ML (PULMICORT) AMP INH SCH (07:20)
[2021-10-25] MEDS: RT-ALBUTEROL/IPRATROPIUM 3 ML (DUONEB) VIAL INH SCH (07:20)
--- NOTE | 2021-10-25 08:00 | Therapy Team Discharge Summary ---
Therapy Discharge Summary Discharge Recommendations Date of Discharge Occupational Therapy Decreased Activ Tolerance, Decreased UE Strength, Edema, Impaired Funct Balance, Impaired I ADL's, Impaired Self-Care Skills, Restricted Funct UE ROM Speech-Language Pathology The patient received skilled speech pathology intervention to target moderate cognitive impairment, most notably in the areas of memory and executive functi oning. The patient's progress fluctuated throughout his stay in ARU secondary to fatigue. At this time, the patient did not meet his cognitive goals. PT Patient Financial Representative Goals Alf Goals PT Patient Financial Representative Goals Time Frame: Oct 31, 2021 Roll Left to Right (QC): 6 Sit to Lying (QC): 6 Lying-Sitting on Side/Bed(QC): 6 Sit to Stand (QC): 6 Chair/Zue-jc-Wjfxl Xfer(QC): 6 Car Transfer (QC): 3 Does the Patient Walk: Yes Walk 10 feet (QC): 6 Walk 10ft-Uneven Surface(QC): 4 Walk 50ft with 2 Turns (QC): 6 Walk 150 ft (QC): 6 Wheel 50 feet with 2 turns (QC: 9 1 Step (curb) (QC): 4 4 Steps (QC): 4 12 Steps (QC): 88 Picking up an Object (QC): 4 OT Patient Financial Representative Goals Alf Goals Time Frame: Oct 26, 2021 Eating (QC): 6 Oral Hygiene (QC): 6 Shower/Bathe Self (QC): 5 Upper Body Dressing (QC): 5 Lower Body Dressing (QC): 5 On/Off Footwear (QC): 5 Toileting Hygiene (QC): 6 Toilet/Commode Transfer (QC): 6 1=Demonstrate adherence to instructed precautions during ADL tasks. 2=Patient will verbalize/demonstrate understanding of assistive devices/modifications for ADL. 3=Patient will improve strength/tolerance for activity to enable patient to perform ADL's. Speech Alf Goals Alf Goals 1. The patient will display increased cognitive linguistic abilities for improve d independence with ADL's in the least restrictive environment. NOT MET Time Frame: Two Weeks CECELIA WILLIAM Oct 25, 2021 08:00
--- NOTE | 2021-10-25 08:38 | Diagnostic Imaging Report ---
INDICATION: Heart failure. TIME OF EXAM: 8:28 AM COMPARISON is made with prior chest 10/22/2021. FINDINGS: The heart size is stable. Left-sided line has its tip overlying the SVC. There is minimal infiltrate in the left perihilar region. There is right basilar infiltrate. There are small bilateral effusions. IMPRESSION: Bilateral infiltrates and small bilateral effusions. Overall appearance is very similar to the examination from 3 days earlier. Dictated by: Dictated on workstation # [id number]
[2021-10-25] MEDS: TAMSULOSIN 0.4 MG (FLOMAX) CAP PO SCH (08:42)
[2021-10-25] MEDS: PANTOPRAZOLE 40 MG (PROTONIX) TAB PO SCH (08:42)
[2021-10-25] MEDS: LORATADINE (CLARITIN) 10 MG TAB PO SCH (08:42)
[2021-10-25] MEDS: CAL. POLYCARBOPHIL 625 MG (FIBERCON) TAB PO SCH (08:42)
[2021-10-25] MEDS: SENNOSIDES 8.6 MG (SENOKOT) TAB PO SCH (09:20)
[2021-10-25] MEDS: SENNA W/DOCUSATE (SENOKOT S) TABLET PO SCH (09:20)
[2021-10-25] MEDS: polyethylene glycoL POWDER 17 GM (MIRALAX) PACK PO SCH (09:20)
[2021-10-25] MEDS: DOCUSATE SODIUM 100 MG (COLACE) CAP PO SCH (09:20)
--- NOTE | 2021-10-25 09:21 | Physical Therapy Daily Note ---
PT Daily Note-Current Subjective Patient in recliner pre tx, agrees to PT, has no complaints of pain. Appearance Patient in recliner post tx with nurse call, phone, tray, all needs met, legs elevated and on pillow for pressure relief. Mental Status Patient Orientation: Person, Place, Situation Attachments: Oxygen Transfers SCALE: Activities may be completed with or without assistive devices. 2-Bzczxdtkbn-jdryfjc completes the activity by him/herself with no assistance from a helper. 5-Set-up or Clean-up Assistance-helper sets up or cleans up; patient completes activity. [place] assists only prior to or following the activity. 4-Supervision or Touching Assistance-helper provides verbal cues and/or touching/steadying and/or contact guard assistance as patient completes activity. Assistance may be provided throughout the activity or intermittently. 3-Partial/Moderate Assistance-helper does LESS THAN HALF the effort. [place] lifts, holds or supports trunk or limbs, but provides less than half the effort. 2-Substantial/Maximal Assistance-helper does MORE THAN HALF the effort. [place] lifts or holds trunk or limbs and provides more than half the effort. 8-Lysnyahlg-jsjkph does ALL the effort. Patient does none of the effort to complete the activity. Or, the assistance of 2 or more helpers is required for the patient to complete the activity. If activity was not attempted, code reason: 7-Patient Refused. 9-Not Applicable-not attempted and the patient did not perform the activity before the current illness, exacerbation or injury. 10-Not Attempted due to Environmental Limitations-(lack of equipment, weather restraints, etc.). 88-Not Attempted due to Medical Conditions or Safety Concerns. Roll Left & Right (QC): 6 Sit to Lying (QC): 6 Lying to Sitting/Side of Bed(Q: 6 Sit to Stand (QC): 4 Chair/Taa-go-Hgpel Xfer(QC): 4 Toilet Transfer (QC): 4 Car Transfer (QC): 4 Patient performs rolling and supine <-> sit with independence, sit <-> stand and transfers with SBA, car transfer SBA. Patient has a tendency to keep walker too far in front of him. Weight Bearing Right Lower Extremity: Right Weight Bearing/Tolerated Left Lower Extremity: Left Weight Bearing/Tolerated Gait Training Distance: 100'x2 Walk 10 feet (QC): 4 Walk 50 ft with 2 Turns(QC): 4 Walk 150 ft (QC): 88 Walking 10ft/uneven surface-QC: 4 Gait Persons Needed: 1 Gait Assistive Device: FWW Patient can ambulate 100' with a rolling walker with SBA (including 50' with at least 2 turns of 90 degrees and 10' over an uneven surface). Patient gets SOB with ambulation and has a slumped posture, needs cues to keep walker closer. Wheelchair Training Does the Pt Use a Wheelchair?: No Wheel 50 ft with 2 turns (QC): 9 Wheel 150 ft (QC): 9 Stair Training Stair Training: Handrails/: uses walker #of Steps: 1 1 Step (curb) (QC): 4 4 Steps (QC): 88 12 Steps (QC): 88 Stairs: Pattern: Step to Patient can go up and down 1 step using a rolling walker with SBA, patient gets too SOB to go up and down the set of 4 steps. Balance Picking up an Object (QC): 4 Treatments bed mobility and transfers, ambulation, stair training, gait training Assessment Current Status: Poor Progress patient SOB with pretty much all activity PT Short Term Goals Short Term Goals Time Frame: Oct 17, 2021 Roll Left & Right: 6 Sit to lyin Lying to sitting on side of be: 4 Sit to stand: 4 (SBA) Chair/xbk-dm-ffucj transfer: 4 (SBA) Walk 10 feet: 4 Walk 50 feet with two turns: 4 Walk 150 feet: 4 PT Shelter Goals Glass Inspector Goals PT Shelter Goals Time Frame: Oct 31, 2021 Roll Left & Right (QC): 6 Sit to Lying (QC): 6 Lying-Sitting on Side/Bed(QC): 6 Sit to Stand (QC): 6 Chair/Imc-ne-Upzhj Xfer(QC): 6 Toilet Transfer (QC): 6 Car Transfer (QC): 3 Does the Patient Walk: Yes Walk 10 feet (QC): 6 Walk 50ft with 2 Turns (QC): 6 Walk 150 ft (QC): 6 Walking 10ft on Uneven Surface: 4 1 Step (curb) (QC): 4 4 Steps (QC): 4 12 Steps (QC): 88 Picking up an Object (QC): 4 Wheel 50 feet with 2 turns (QC: 9 Wheel 150 feet: 9 PT Plan Problem List Problem List: Activity Tolerance, Functional Strength, Safety, Balance, Gait, Transfer, Bed Mobility, ROM Treatment/Plan Treatment Plan: Discontinue PT (patient is discharging from this facility today) Treatment Plan: Bed Mobility, Education, Functional Activity Tatiana, Functional Strength, Group Therapy, Gait, Safety, Therapeutic Exercise, Transfers Treatment Duration: Oct 31, 2021 Frequency: At least 5 of 7 days/Wk (IRF) Estimated Hrs Per Day: 1.5 hours per day Patient and/or Family Agrees t: Yes Safety Risks/Education Patient Education: Gait Training, Transfer Techniques, Steps, Correct Positioning, Safety Issues Teaching Recipient: Patient Teaching Methods: Demonstration, Discussion Response to Teaching: Reinforcement Needed Time/GCodes Time In: 00 Time Out: 919 Total Billed Treatment Time: 20 Total Billed Treatment 1 visit FA 20 RACHEL KAPOOR PT Oct 25, 2021 09:21
--- NOTE | 2021-10-25 09:30 | Therapy Team Discharge Summary ---
Therapy Discharge Summary Discharge Recommendations Date of Discharge Physical Therapy Patient came to rehab with septic shock due to pneumonia. Upon evaluation patient performed rolling with independence, supine <-> sit min assist, sit <-> stand CGA, transfers CGA, car transfer mod assist, ambulated 50' with a rolling walker with CGA (including 50' with at least 2 turns of 90 degrees). Patient has been performing bed mobility and transfer training, balance and endurance training, functional strengthening, stair training, gait training, and education. Patient has made some progress but has not met his transfer and ambulation and stairs residential goals. Now, patient performs rolling and supine <-> sit with independence, sit <-> stand and transfers with SBA, car transfer SBA, ambulate 100' with a rolling walker with SBA (including 50' with at least 2 turns of 90 degrees and 10' over an uneven surface), can go up and down 1 step using a rolling walker with SBA, and can shrimp picker an object from the floor using a honey grader and blender with SBA. Patient is being discharged from this facility today and will be discharged from PT at this time. Occupational Therapy Decreased Activ Tolerance, Decreased UE Strength, Edema, Impaired Funct Balance, Impaired I ADL's, Impaired Self-Care Skills, Restricted Funct UE ROM PT Manager Hvac Goals Manager Hvac Goals PT Halfway Goals Time Frame: Oct 31, 2021 Roll Left to Right (QC): 6 Sit to Lying (QC): 6 Lying-Sitting on Side/Bed(QC): 6 Sit to Stand (QC): 6 Chair/Sbd-hb-Ggbqw Xfer(QC): 6 Car Transfer (QC): 3 Does the Patient Walk: Yes Walk 10 feet (QC): 6 Walk 10ft-Uneven Surface(QC): 4 Walk 50ft with 2 Turns (QC): 6 Walk 150 ft (QC): 6 Wheel 50 feet with 2 turns (QC: 9 1 Step (curb) (QC): 4 4 Steps (QC): 4 12 Steps (QC): 88 Picking up an Object (QC): 4 OT Manager Hvac Goals Manager Hvac Goals Time Frame: Oct 26, 2021 Eating (QC): 6 Oral Hygiene (QC): 6 Shower/Bathe Self (QC): 5 Upper Body Dressing (QC): 5 Lower Body Dressing (QC): 5 On/Off Footwear (QC): 5 Toileting Hygiene (QC): 6 Toilet/Commode Transfer (QC): 6 1=Demonstrate adherence to instructed precautions during ADL tasks. 2=Patient will verbalize/demonstrate understanding of assistive devices/modifications for ADL. 3=Patient will improve strength/tolerance for activity to enable patient to perform ADL's. Speech Halfway Goals Halfway Goals 1. The patient will display increased cognitive linguistic abilities for improved independence with ADL's in the least restrictive environment. NOT MET Time Frame: Two Weeks RACHEL KAPOOR PT Oct 25, 2021 09:30
--- NOTE | 2021-10-25 10:33 | Progress Note - Urology ---
Progress Note-Urology Progress Notes/Assess & Plan Progress/Assessment & Plan GOING TO [facility] [place] SWING BEDS TODAY. WE WILL MANAGE HIM THERE. KEEP ON FLOMAX BID Final Diagnosis RETENTION ATILIO WILSON MD Oct 25, 2021 10:33
--- NOTE | 2021-10-25 11:25 | Cardiology Progress Note ---
Progress Note-Cardiology Events since last exam Date Seen by Provider: Oct 25, 2021 Time Seen by Provider: 11:21 Events since last exam I am following him due to heart failure and atrial fibrillation. His breathing is about the same as yesterday. His peripheral edema is nearly resolved. He denies chest pain, palpitations, or syncope. He will be transferred to a swing bed at [facility] later today. Certain portions of this document may have been dictated utilizing voice recognition technology. Inherent to this technology, typographical and grammatical errors may exist. As much as I am diligent to identify and correct these mistakes, some errors may remain in the document. Vitals Last set of Vitals Signs Vital Signs 10/22/21 10/25/21 10/25/21 10/25/21 07:17 07:18 07:31 09:14 Temp 36.5 Pulse 77 Resp 18 B/P (MAP) 143/63 (89) Pulse Ox 97 O2 Delivery High Flow N/C O2 Flow Rate 3.00 FiO2 2 Labs Labs Laboratory Tests 10/25/21 04:45 Exam Vital Signs Vital Signs Date Time Temp Pulse Resp B/P (MAP) Pulse Ox O2 Delivery O2 Flow Rate FiO2 10/25/21 09:14 High Flow N/C 3.00 10/25/21 07:31 97 10/25/21 07:18 36.5 77 18 143/63 (89) 10/22/21 07:17 2 Physical Exam General: Alert. No acute distress. He is wearing oxygen by nasal cannula. Eye: No xanthelasma. HENT: Normocephalic. Neck: Jugular venous pressure does not appear elevated. Respiratory: Lungs are clear to auscultation but with diffusely decreased breath sounds. Respirations are non-labored. Breath sounds are equal. Symmetrical chest wall expansion. Cardiovascular: Normal rate. Regular rhythm. No murmur. No gallop. Trace bilateral pretibial edema. Gastrointestinal: Soft. Normal bowel sounds. Skin: Warm. Dry. Neurologic: Alert and oriented to person, place, time. Cranial nerves 3-11 grossly intact. Psychiatric: Cooperative. Appropriate mood & affect. Labs Laboratory Tests Test 10/25/21 04:45 Range/Units Sodium Level 130 L 135-145 MMOL/L Potassium Level 4.1 3.6-5.0 MMOL/L Chloride Level 89 L 98-107 MMOL/L Carbon Dioxide Level 30 21-32 MMOL/L Anion Gap 11 5-14 MMOL/L Blood Urea Nitrogen 26 H 7-18 MG/DL Creatinine 1.27 0.60-1.30 MG/DL Estimat Glomerular Filtration Rate 57 BUN/Creatinine Ratio 20 Glucose Level 95 70-105 MG/DL Calcium Level 8.9 8.5-10.1 MG/DL Diagnosis/Problems Diagnosis/Problems (1) Acute heart failure with preserved ejection fraction (HFpEF) Assessment & Plan: I started him on intravenous diuretic on 10/15. His chest x-ray from 10/16 still showed bilateral pleural effusions but his chest x-ray from 10/22 is improved. His symptoms continue to gradually improve and his edema is almost resolved. I increased his dose of diuretic on 10/23. His creatinine has climbed slightly today. I would suggest changing the bumetanide over to 2 mg once daily. His chest x-ray from today looks about the same as 3 days ago. He may need home oxygen when he is discharged. (2) Paroxysmal atrial fibrillation Status: Acute Assessment & Plan: He initially was having sinus tachycardia and multifocal atrial tachycardia but towards the end of his acute hospitalization, he may have had at least a few episodes of atrial fibrillation. I placed the patient on rivaroxaban for stroke prophylaxis. He is on diltiazem for rate control. He seems to be remaining in sinus rhythm since being transferred to inpatient rehab. The patient then developed heme positive stool and anemia and rivaroxaban has been on hold. His upper endoscopy showed a healing gastric ulcer. I have reordered rivaroxaban. I may consider some sort of external event monitor once he is discharged home. I will arrange for for that if needed through my office. I have ordered 1 more electrocardiogram before he leaves just to verify his current rhythm. (3) Primary hypertension Status: Chronic Assessment & Plan: Blood pressures are reasonably controlled with the current dose of diltiazem which he is on due to atrial fibrillation. (4) Acute on chronic respiratory failure with hypoxemia Status: Acute Assessment & Plan: Probably multifactorial. We will proceed as above. He may need home oxygen at the time of discharge. (5) Multifocal atrial tachycardia Status: Acute Assessment & Plan: As above, he was predominantly having multifocal atrial tachycardia when he was first admitted to the acute hospital. Now he is back in sinus rhythm. I recommend he continue on diltiazem. (6) Mixed hyperlipidemia Status: Chronic Assessment & Plan: Continue atorvastatin. (7) Acute kidney injury Status: Acute Assessment & Plan: His renal function now seems to have stabilized. We will need to monitor this closely with intravenous diuretic. SHERRI CHO JR, MD Oct 25, 2021 11:25
[2021-10-25 11:50] VITALS: BP 143/63
[2021-10-25] MEDS ORDERED: RIVAROXABAN 20 MG TABLET (XARELTO) PO SCH (17:00)
--- NOTE | 2021-10-26 11:10 | Therapy Team Discharge Summary ---
Therapy Discharge Summary Discharge Recommendations Date of Discharge Oct 25, 2021 at 11:50 Occupational Therapy Patient came to rehab with septic shock due to pneumonia. Upon evaluation jerman heller was mod a for footwear, lower body dressing and bathing, dependent for toileting, and set up for eating. While on rehab, OT focused on safety, balance, endurance/activity tolerance, UE strength/rom, energy conservation strategies, use of adaptive equipment and breathing techniques in order to improve independence with adls and functional transfers. The patient made some progress but did did not meet all of his retirement goals due to severe fatigue and breathing difficulties. Now the patient is sba-cga for bathing, upper and lower body dressing, toilet transfers, min a for toilet hygiene, max a for footwer, and independent with oral care and eating. Patient has been discharged from this facility and will be discharged from OT at this time. 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 Goals Fci Goals PT Fci Goals Time Frame: Oct 31, 2021 Roll Left to Right (QC): 6 Sit to Lying (QC): 6 Lying-Sitting on Side/Bed(QC): 6 Sit to Stand (QC): 6 Chair/[id number] Xfer(QC): 6 Car Transfer (QC): 3 Does the Patient Walk: Yes Walk 10 feet (QC): 6 Walk 10ft-Uneven Surface(QC): 4 Walk 50ft with 2 Turns (QC): 6 Walk 150 ft (QC): 6 Wheel 50 feet with 2 turns (QC: 9 1 Step (curb) (QC): 4 4 Steps (QC): 4 12 Steps (QC): 88 Picking up an Object (QC): 4 OT Fci Goals Mold Maker Helper Goals Time Frame: Oct 26, 2021 Eating (QC): 6 (met) Oral Hygiene (QC): 6 (met) Shower/Bathe Self (QC): 5 (not met) Upper Body Dressing (QC): 5 (not met) Lower Body Dressing (QC): 5 (not met) On/Off Footwear (QC): 5 (not met) Toileting Hygiene (QC): 6 (not met) Toilet/Commode Transfer (QC): 6 (not met) 1=Demonstrate adherence to instructed precautions during ADL tasks. 2=Patient will verbalize/demonstrate understanding of assistive devices/modifications for ADL. 3=Patient will improve strength/tolerance for activity to enable patient to perform ADL's. Speech Fci Goals Mold Maker Helper Goals 1. The patient will display increased cognitive linguistic abilities for improved independence with ADL's in the least restrictive environment. NOT MET Time Frame: Two Weeks Tamiko Fox OT Oct 26, 2021 11:10
== END 2021-10-25 11:50 | disposition swing bed (61) | DRG 193 ==
PROVIDERS: ADMIT Internal Medicine; ATTEND Internal Medicine
DX: J18.9 Pneumonia, unspecified organism (principal); I21.A1 Myocardial infarction type 2; I50.31 Acute diastolic (congestive) heart failure; J96.21 Acute and chronic respiratory failure with hypoxia; J44.0 Chronic obstructive pulmonary disease with (acute) lower respiratory infection; J44.1 Chronic obstructive pulmonary disease with (acute) exacerbation; N17.9 Acute kidney failure, unspecified; K62.5 Hemorrhage of anus and rectum; Z20.822 Contact with and (suspected) exposure to COVID-19; E78.2 Mixed hyperlipidemia; E78.00 Pure hypercholesterolemia, unspecified; E03.9 Hypothyroidism, unspecified; I48.0 Paroxysmal atrial fibrillation; E66.9 Obesity, unspecified; I11.0 Hypertensive heart disease with heart failure; D64.9 Anemia, unspecified; N40.1 Benign prostatic hyperplasia with lower urinary tract symptoms; R33.8 Other retention of urine; K21.00 Gastro-esophageal reflux disease with esophagitis, without bleeding; K44.9 Diaphragmatic hernia without obstruction or gangrene; K29.70 Gastritis, unspecified, without bleeding; Z68.33 Body mass index [BMI] 33.0-33.9, adult; Z79.01 Long term (current) use of anticoagulants; Z79.82 Long term (current) use of aspirin; Z79.52 Long term (current) use of systemic steroids; Z88.0 Allergy status to penicillin
CPT/HCPCS: 36415; 71045; 71046; 80048; 80053; 82274; 82607; 82947; 83540; 83735; 83880; 84145; 85007; 85025; 85027; 87324; 87449; 87493; 87636; 93005; 94640; 94760

== ENCOUNTER → 2021-10-19 | Day surgery (SDC) | payer MEDICARE, OTHER ==
[~2021-10-19] MED LIST changes: +ATOR40TA PO; +BISA5TAB8 PO; +BMT.25V4 IV; +BUDE0.5A INH; +BUME1TAB8 PO; +BUME2TAB7 PO; +EPTIFIBATIDE BOLUS 10 ML IV ONE; +FLUT12AE6 IH; +GFCD10B PO; +HEParin 1000 UNIT/ML (10ML VIAL) FOR BOLUS ONE; +IPRA3AMP31 IH; +IPRA3AMP31 INH; +LACT1CAP7 PO; +LIDOCAINE UROJET 2% GEL 10 ML PKG ONE; +LORA10TA7 PO; +MENT71OI TP; +METH125V13 IJ; +MIDAZOLAM 5 MG/5 ML (VERSED) VIAL ONE; +MONT-40 PO; +NS IV 1000 ML 0 ML ONE; +PANT40TA52 PO; +PRED10TA22 PO; +PRED5TAB PO; +RIVA20TA2 PO; +SIMV40TA25 PO; +SNN187T PO; +SUCR1TAB PO; +TMSL.4C PO; +fentaNYL INJ 100 MCG/2 ML AMP ONE
== END ==
LOC: SDC 05:34
PROVIDERS: ATTEND Urology
DX: N40.1 Benign prostatic hyperplasia with lower urinary tract symptoms (principal); R33.8 Other retention of urine; N32.89 Other specified disorders of bladder

== ENCOUNTER → 2021-10-24 | Day surgery (SDC) | payer MEDICARE, OTHER ==
[~2021-10-24] MED LIST changes: -EPTIFIBATIDE BOLUS 10 ML IV ONE; -HEParin 1000 UNIT/ML (10ML VIAL) FOR BOLUS ONE; +LACTATED RINGERS 1,000 ML IV ONE; +LACTATED RINGERS 1,000 ML IV STA; -LIDOCAINE UROJET 2% GEL 10 ML PKG ONE; -MIDAZOLAM 5 MG/5 ML (VERSED) VIAL ONE; -NS IV 1000 ML 0 ML ONE; -fentaNYL INJ 100 MCG/2 ML AMP ONE; +proPOfol 200 MG/20 ML (DIPRIVAN) VIAL IV ONE
[2021-10-24 12:25] VITALS: BP 82/49
[2021-10-24 12:29] VITALS: BP 91/53
--- NOTE | 2021-10-24 18:56 | OPERATIVE REPORT ---
DATE OF SERVICE: 10/24/2021 ATTENDING PRIMARY CARE PHYSICIAN: Dr. Molly Flores. PREOPERATIVE DIAGNOSIS: Anemia and bilateral pneumonia. POSTOPERATIVE DIAGNOSES: Reflux esophagitis, Independence grade C, moderate size hiatal hernia approximately 3.5 to 4 cm in size, moderate gastritis with a very small healed antral ulcer, no active bleeding, chronic stage II external and internal hemorrhoids, and poor prep; however, no colonic lesions identified. PROCEDURES PERFORMED: EGD with biopsy and colonoscopy. SURGEON: Edvin Marroquin MD. ANESTHESIA: Monitored anesthesia care. ESTIMATED BLOOD LOSS: Minimal. FINDINGS: Reflux esophagitis, Independence grade C, moderate size hiatal hernia approximately 3.5 to 4 cm in size, moderate gastritis with a very small healed antral ulcer, no active bleeding, chronic stage II external and internal hemorrhoids, and poor prep; however, no colonic lesions identified. DISPOSITION: The patient tolerated the procedure well. INDICATIONS FOR PROCEDURE: The patient is an 81-year-old male, who was admitted for shortness of breath as well as weakness and fatigue. He was found to have bilateral pneumonia. He was initially treated in the ICU and improved and was sent to the general medical floor and he did continue to improve; however, during this process, he did develop a significant anemia. Hemoccult test was also done and found to be positive. Upon further questioning, he reports that he does have a history of gastroesophageal reflux disease; however, not severe. He has had a colonoscopy in the past; however, this has been greater than 15 years. He does not report any known episodes of red blood per rectum nor any dark tarry stools. Since being in acute inpatient rehabilitation, his hemoglobin has been low; however, stable at around 8.0. DESCRIPTION OF PROCEDURE: The patient was brought to the endoscopy suite and laid in the left lateral decubitus position. After adequate IV pain and sedative medications and monitored anesthesia care, the mouthpiece was applied. The endoscope was then placed in the mouth, visualizing the pharynx and hypopharyngeal region. Vocal cords, epiglottis, and vallecula identified and appeared to be normal. The endoscope was then gently intubated, the esophageal opening and esophagus insufflated. The endoscope was then advanced through the first, second, and third portions of the esophagus. At the level of the GE junction, reflux esophagitis, Independence grade C identified. There were no ulcers or active bleeding sources identified and biopsies were taken with forceps with visualization of good hemostasis. The endoscope was then advanced in the stomach and endoscope retroflexed, visualizing a moderate size hiatal hernia 3.5 to 4 cm in size. This appeared to be either a type 1 sliding versus a type 3 classic paraesophageal hernia. There was moderate gastritis with a small antral ulceration, which has almost completely healed. This was biopsied with forceps with visualization of good hemostasis. The endoscope was then advanced to the pylorus and the first and second portion of the duodenum, which appeared normal with no ulcerations or any active bleeding sources. The endoscope was then slowly withdrawn while taking a second look and suctioning of residual air with no additional findings. A digital rectal examination was performed, which revealed chronic stage II external and internal hemorrhoids, not actively edematous nor inflamed and no bleeding. Normal sphincter tone was felt and there were no palpable masses. Prostate gland was palpable and appeared normal. The endoscope was then intubated and anus and rectum gently insufflated. There was a poor colonic prep; however, we did use the irrigation as much as possible to visualize the colon and mucosa. The endoscope was then advanced through the valves of Patel of the rectum with no polyps or any neoplasms identified. Through the sigmoid colon, there was no significant diverticulosis identified. The endoscope was then advanced to the remainder of the descending, transverse, and ascending colon to the cecum, which appeared normal with no active bleeding sources as well as no polyps or any neoplasms identified. The endoscope was then slowly withdrawn while taking a second look and suctioning of residual air with no additional findings. The patient tolerated the procedure well. We will recommend the necessary dietary and lifestyle accommodation with small and more frequent meals, avoiding to eating at night as well as head elevation while lying supine. He also needs to avoid caffeinated beverages, spicy, greasy and acidic foods and to take a PPI acid outreach librarian on a daily basis. We will also recommend a high fiber diet for him with 30 grams of fiber daily as well as significant amounts of water to promote soft stools on a daily basis and to prevent episodes of constipation. Job ID: [id number] DocumentID: [id number] Dictated Date: 10/24/2021 12:30:09 Junior Project Manager Date: 10/24/2021 18:55:59 Dictated By: EDVIN MARROQUIN MD [facility]ITAL[facility]
== END ==
LOC: ENDO 07:08
PROVIDERS: ATTEND Surgery
DX: K21.00 Gastro-esophageal reflux disease with esophagitis, without bleeding (principal); K29.50 Unspecified chronic gastritis without bleeding; K44.9 Diaphragmatic hernia without obstruction or gangrene; K64.1 Second degree hemorrhoids; K64.4 Residual hemorrhoidal skin tags; D64.9 Anemia, unspecified; J18.9 Pneumonia, unspecified organism; E78.00 Pure hypercholesterolemia, unspecified; E78.5 Hyperlipidemia, unspecified; E03.9 Hypothyroidism, unspecified; E66.9 Obesity, unspecified; I11.0 Hypertensive heart disease with heart failure; I50.9 Heart failure, unspecified; I48.91 Unspecified atrial fibrillation; I73.9 Peripheral vascular disease, unspecified; J44.9 Chronic obstructive pulmonary disease, unspecified; J90 Pleural effusion, not elsewhere classified; Z79.82 Long term (current) use of aspirin; Z87.891 Personal history of nicotine dependence; Z79.899 Other long term (current) drug therapy; Z79.890 Hormone replacement therapy
CPT/HCPCS: 88305; 88342

== ENCOUNTER 2021-10-27 15:17 | Inpatient (IN) | payer MEDICARE, OTHER ==
[~2021-10-27] VITALS: Ht 172.7 cm; Wt 98.5 kg
[2021-10-27] VITALS (11 sets, daily range): BP systolic 86–128; BP diastolic 56–94
[~2021-10-27 15:17] MED LIST changes: -ATOR40TA PO; -BISA5TAB8 PO; -BUME1TAB8 PO; -BUME2TAB7 PO; -FLUT12AE6 IH; -IPRA3AMP31 IH; -MENT71OI TP; -METH125V13 IJ; -PRED5TAB PO; -SIMV40TA25 PO
[2021-10-27] MEDS ORDERED: morphine INJ 4 MG/ML 1 ML (VIAL/SYRINGE) IV PRN (15:30)
[2021-10-27] MEDS ORDERED: MEROPENEM 1,000 MG in NS (IVPB) 100 ML IV SCH (15:30)
[2021-10-27] MEDS ORDERED: LACTULOSE SYRUP 10GM/15ML (ENULOSE) 30ML UDC PO PRN (15:30)
[2021-10-27] MEDS ORDERED: NS IV 500 ML 500 ML IV SCH (15:30)
[2021-10-27] MEDS ORDERED: MELATONIN 3 MG TABLET PO PRN (15:30)
[2021-10-27] MEDS ORDERED: ANTACID SUSP 30 ML UDC (MYLANTA) PO PRN (15:30)
[2021-10-27] MEDS ORDERED: ONDANSETRON 4 MG/2 ML (SDV) Z0FRAN IV PRN (15:30)
[2021-10-27] MEDS ORDERED: CALCIUM CARBONATE 500 MG (TUMS) TAB.CHEW PO PRN (15:30)
[2021-10-27] MEDS ORDERED: polyethylene glycoL POWDER 17 GM (MIRALAX) PACK PO PRN (15:30)
[2021-10-27] MEDS ORDERED: ONDANSETRON 4 MG (ZOFRAN) ORAL DISSOLVE TAB PO PRN (15:30)
[2021-10-27] MEDS ORDERED: BISACODYL 10 MG SUPP (DULCOLAX) PR PRN (15:30)
[2021-10-27] MEDS ORDERED: diphenhydrAMINE 25 MG TAB (BENADRYL) PO PRN (15:30)
[2021-10-27] MEDS ORDERED: diphenhydrAMINE 50 MG/ML INJ (BENADRYL) IVP PRN ×2 (15:30)
[2021-10-27] MEDS ORDERED: FUROSEMIDE 40 MG/4 ML INJ (LASIX) IVP ONE (15:30)
[2021-10-27] MEDS ORDERED: VANCOMYCIN INJECTION 1,000 MG in NS (IVPB) 250 ML IV SCH (15:30)
[2021-10-27] MEDS ORDERED: ACETAMINOPHEN 325 MG TABLET PO PRN (15:30)
[2021-10-27] MEDS ORDERED: MILK OF MAGNESIA 400 MG/5 ML 30 ML UDC PO PRN (15:30)
--- NOTE | 2021-10-27 17:09 | Progress Note ---
Progress Note This is an 81-year-old white male clinic patient of Dr. Flores (who only sees the doctor once a year but smokes 65 years 1 pack/day) who presents from [facility] swing bed after just admitted 2 days ago after failed inpatient rehab following a 15-day hospital course after admitted from ICU and fourth floor following septic shock from pneumonia and acute renal failure from [facility] who now presents to the ICU for higher level of care due to worsening respiratory failure and and severe anemia symptomatic with hemoglobin of 6.1 requiring transfusion. No blood was given in chart yet. Central line was required after old central line was removed due to [address] Chest x-ray following central line placement revealed worsened new pneumonia and exacerbation of COPD clinically with volume overload so he will be pancultured here at [facility] ICU and placed on meropenem and Vanco for nosocomial pneumonia along with IV steroids and transfusion. Patient has chronic kidney disease baseline creatinine is 1.8. This patient will go to Dr. Mckinley service due to daughter Laura having di fficulty with the end-of-life conversation I had with her about her father. I had a 20-minute phone conversation with her explaining that he was failing aggressive care and could not withstand more aggressive care due to poor reserve and outcome would be poor. He remains a full code and wants to be on the ventilator if need be. His prognosis is extremely poor and his outcome will not be good in my opinion after taking care of him the entire inpatient rehab course of 15 days prior to moving to swing bed. I have seen him every day and patient continues to remain extremely complicated requiring aggressive medical management in order to remain stable. She proceeded on telling me that his decompensation was because I took out his old central line even though it had been in place for 3 weeks and required replacement due to infection risk. She then blamed me for not giving him adequate breathing treatments since he has been at [facility] and I explained that his decompensation was not just because we decreased his breathing treatments from four times a day to twice a day. I arrived at the bedside and updated and other daughter (Laura was not at the bedside) that we would be moving him to [facility] ICU to higher level of care and obtain a second opinion of his overall long-term outcome prognosis with Dr. Mckinley. I did update Dr. Mckinley who accepted this patient onto his service and also Dr. MARROQUIN since his hemoglobin was very low and may need rescoped and Dr. Ford cardiology. Previous rehab DC A/P: Assessment: Debility New onset AF w/recent RVR Active wheezing AECOPD Hypoxia PNA s/p septic shock CHAZ HTN Hypoxemia Urinary retention 10/13/21 Volume overload giving Bumex per Dr Ford Dark stool Hemoccult + 10/14/[address] MARROQUIN and change PPI to twice daily and added Carafate and holding Xarelto status post EGD and colonoscopy with healed antral ulcer noted Severely elevated white count without source checking C. difficile Presumed C diff colitis placed on Vanc PO but test negative? Stopping vancomycin p.o. now Plan: Monitor closely IV steroids IV abx DC cath tomorrow Supportive care 10/11/21: Monitor closely Cath DC 10/12/21: Doing extremely well Monitor closely 10/13/21: Lasix 20mgIV x [address] Colno Urinary retention management 10/14/2021: Check C. difficile Hold Xarelto PPI and Carafate 10/15/21: Appreciate Dr Ford Consult Dr Izaguirre 10/16/21: Vanc PO Monitor closely Complex case 10/17/21: Vanc PO C diff negative but still suspicious 10/18/21: Monitor wbc Decrease steroids Diuresis 10/19/2021: Supportive care Decrease steroids Continue diuresis 10/20/2021: Continue aggressive diuresis Supportive care 10/21/2021: Continue aggressive diuresis Monitor closely 10/22/2021: Supportive care Monitor electrolytes 10/23/21: Monitor progress Scopes soon OAC after scopes 10/24/2021: EGD and colonoscopy showed antral ulcer Restart oral anticoagulation? (1) Acute heart failure with preserved ejection fraction (HFpEF) Assessment & Plan: I started him on intravenous diuretic on 10/15. His chest x-ray from 10/16 still showed bilateral pleural effusions but his chest x-ray from 10/22 is improved. His symptoms continue to gradually improve and his edema is almost resolved. Unfortunately, his breathing is worse today. There has been little change in his renal function. I will double the dose of bumetanide. He may need home oxygen when he is ready for discharge. (2) Paroxysmal atrial fibrillation Status: Acute Assessment & Plan: He initially was having sinus tachycardia and multifocal atrial tachycardia but towards the end of his acute hospitalization, he may have had at least a few episodes of atrial fibrillation. I placed the patient on rivaroxaban for stroke prophylaxis. He is on diltiazem for rate control. He seems to be remaining in sinus rhythm since being transferred to inpatient rehab. The patient then developed heme positive stool and anemia and rivaroxaban has been on hold. Since I suspect the atrial fibrillation may have been brought on by his acute, noncardiac illness, he may not need lifelong anticoagulation. I would have to have him undergo cardiac monitoring following discharge. (3) Primary hypertension Status: Chronic Assessment & Plan: Blood pressures are reasonably controlled with the current dose of diltiazem which he is on due to atrial fibrillation. (4) Multifocal atrial tachycardia Status: Acute Assessment & Plan: As above, he was predominantly having multifocal atrial tachycardia when he was first admitted to the acute hospital. Now he is back in sinus rhythm. I recommend he continue on diltiazem. (5) Mixed hyperlipidemia Status: Chronic Assessment & Plan: Continue atorvastatin. (6) Acute kidney injury Status: Acute Assessment & Plan: His renal function now seems to have stabilized. We will need to monitor this closely with intravenous diuretic. FRANCISCO BHAKTA DO Oct 27, 2021 17:09
[2021-10-27] MEDS: NOREPINEPHRINE 8 MG/250 ML 250 ML IV SCH (17:22)
[2021-10-27 17:28] LABS: BILIRUBIN,URINE NEGATIVE (NEGATIVE); CLARITY,URINE CLEAR; COLOR,URINE YELLOW; GLUCOSE, URINE (UA) NEGATIVE (NEGATIVE); KETONES,URINE NEGATIVE (NEGATIVE); LEUKOCYTE ESTERASE ,URINE NEGATIVE (NEGATIVE); NITRITE,URINE NEGATIVE (NEGATIVE); PH,URINE 7.5 (5-9); PROTEIN,URINE NEGATIVE (NEGATIVE)
[2021-10-27 17:38] LABS: BACTERIA,URINE TRACE /HPF; RBC,URINE 50-100 /HPF; WBC,URINE 0-2 /HPF
--- NOTE | 2021-10-27 17:39 | Tele-ICU Consult ---
History of Present Illness History of Present Illness Date Seen by Provider: Oct 27, 2021 Time Seen by Provider: 17:10 Date of Admission This virtual visit was conducted using real time audio/video. Thank you for asking us to see this patient for respiratory insufficiency due to AECOPD, pna. Also Hb 6.1 Recent events: Transfeerred for worsening resp. fail. PMH: COPD, CKD, PAF SH: smoking history FH: Non-contributory ROS: as in HPI. PE: Pale, obese. VSS. O2 sat on HEENT: No obvious masses, adenopathy or JVD. Chest: clear to auscultation. CV: RRR S1 S2 No murmur or added sounds. Abd: Non-tender. Bowel sounds Y. : Unremarkable. Bal Y. 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 No obvious focal findings. Extremities: No edema. Capillary refill < 3 seconds. Skin: unremarkable. Results: Elevated WCC 16.7, BUN 37, Lact 2.03, Trop 0.126. Decreased Hb 8.1. CXR: R infilt. OB positive. Available chart/ vitals / labs / images reviewed. Video assessment done using teleICU camera, rest of exam as per RN. A/P: Respiratory insufficiency: Continue present management with O2, BDs, Singulair, S.medrol. Monitor for increasing oxygenation needs and/or need for intubation. Critical Care: critically ill patient. Cont. Levo., Vanco., Merrem, PPI, Carafate, SSI. Discussed with RN Shawanda. Asked RN to reach out to eICU if any questions or concerns later. Time spent with patient/coordination of care with other health professionals (mins):27 Allergies and Home Medications Allergies Coded Allergies: Penicillins (Unverified Allergy, Mild, RASH, 12/23/06) Home Medications Atorvastatin Calcium 40 Mg Tablet, 40 MG PO HS, (Reported) Budesonide 0.5 Mg/2 Ml Ampul.neb, 0.5 MG INH RTBID Prescribed by: FRANCISCO BHAKTA on 10/25/21 06 Bumetanide 1 Mg/4 Ml Inj, 2 MG IV BID@0700,1700 Prescribed by: FRANCISCO BHAKTA on 10/25/21 06 Diltiazem HCl 180 Mg Capsule.er, 180 MG PO DAILY, (Reported) Guaifenesin/Codeine 10 Ml Syrp, 10 ML PO Q4H PRN for COUGH Prescribed by: FRANCISCO BHAKTA on 10/25/21603 Ipratropium/Albuterol Sulfate 3 Ml Ampul.neb, 3 ML INH RTBID Prescribed by: FRANCISCO BHAKTA on 10/25/21603 Ipratropium/Albuterol Sulfate 3 Ml Ampul.neb, 3 ML INH RTQ2H PRN for SHORTNESS OF BREATH Prescribed by: FRANCISCO BHAKTA on 10/25/21603 Lactobacillus Acidophilus/Pect 1 Each Capsule, 2 EACH PO ACHS Prescribed by: FRANCISCO BHAKTA on 10/25/21603 Levothyroxine Sodium 112 Mcg Tablet, 112 MCG PO DAILY Prescribed by: FRANCISCO BHAKTA on 10/25/21603 Loratadine 10 Mg Tablet, 10 MG PO DAILY Prescribed by: FRANCISCO BHAKTA on 10/25/21603 Montelukast Sodium 10 Mg Tablet, 10 MG PO HS Prescribed by: FRANCISCO BHAKTA on 10/25/21603 Pantoprazole Sodium 40 Mg Tablet.dr, 40 MG PO BID Prescribed by: FRANCISCO BHAKTA on 10/25/21603 Rivaroxaban 20 Mg Tablet, 20 MG PO DAILY@1700 Prescribed by: FRANCISCO BHAKTA on 10/25/21603 Sennosides 8.6 Mg Tablet, 8.6 MG PO BID Prescribed by: FRANCISCO BHAKTA on 10/25/21603 Sucralfate 1 Gm Tablet, 1 GM PO ACHS Prescribed by: FRANCISCO BHAKTA on 10/25/21603 Tamsulosin HCl 0.4 Mg Cap, 0.4 MG PO BID Prescribed by: FRANCISCO BHAKTA on 10/25/21 06 Past Medical/Social/Family Hx Immunizations Up To Date Tetanus Booster (TDap): More Than 5 Years Hepatitis A: No Hepatitis B: No TB Skin Test: None Current Status Primary Language: Maori Review of Systems Constitutional: see HPI EENTM: see HPI Respiratory: see HPI Gastrointestinal: see HPI Genitourinary: see HPI Musculoskeletal: see HPI Skin: see HPI Psychiatric/Neurological: See HPI (See free text.) Focused Exam Height, Weight, BMI Height: '" Weight: lbs. oz. kg; 31.34 BMI Method: Exam Exam Patient acknowledged, consented, and participated in this virtual visit which was conducted using real time audio/video Vital Signs Date Time Temp Pulse Resp B/P (MAP) Pulse Ox O2 Delivery O2 Flow Rate FiO2 10/27/21 17:18 85 11 104/60 (75) 100 Nasal Cannula 3.00 Height & Weight Height: '" Weight: lbs. oz. kg; 31.34 BMI Method: General Appearance: Chronically ill, Obese Peripheral Pulses: 1+ Dorsalis Pedis (R), 1+ Left Dors-Pedis (L) Assessment/Plan Assessment/Plan See free text. Critical Care: Critically Ill Patient MIKAYLA RICHARDS MD Oct 27, 2021 17:39
--- NOTE | 2021-10-27 17:50 | Diagnostic Imaging Report ---
INDICATION: Pneumonia. COMPARISON: 10/25/2021. FINDINGS: Dense pneumonia in the right lower lobe is present. Radiographically, the disease is similar if changed slightly progressed. Small right pleural effusion, unchanged. The left lung clear. Right IJ at the cavoatrial junction in good position. No pneumothorax. The left IJ has been removed. IMPRESSION: 1. Right lower lobe pneumonia. It may be slightly progressed. Similar right pleural effusion. 2. Right IJ catheter placed in good position, left IJ removed, no pneumothorax. Dictated by: Dictated on workstation # [id number]
[2021-10-27 17:53] LABS: ABG BASE EXCESS 6.2 MMOL/L (-2.5-2.5); ABG OXYGEN SATURATION 99 % (94-100); ABG PCO2 31 MMHG (35-45); ABG PH 7.58 (7.37-7.43); ABG PO2 92 MMHG (79-93); ABG TCO2 29.8 MMOL/L (21.0-31.0)
[2021-10-27 17:59] LABS: ALLENS TEST YES-POS
[2021-10-27 18:00] LABS: INSPIRED O2 31; PATIENT TEMP 36.5; VENTILATOR NO
[2021-10-27 18:02] LABS: BASOPHILS % (AUTO) 0 % (0-10); EOSINOPHILS % (AUTO) 0 % (0-10); LYMPHOCYTES # (AUTO) 0.6 10^3/uL (1.0-4.0); LYMPHOCYTES % (AUTO) 4 % (12-44); MEAN CORPUSCULAR HEMOGLOBIN 30 pg (25-34); MEAN CORPUSCULAR HGB CONC 32 g/dL (32-36); MEAN CORPUSCULAR VOLUME 95 fL (80-99); MEAN PLATELET VOLUME 10.1 fL (9.0-12.2); MONOCYTES # (AUTO) 0.5 10^3/uL (0.0-1.0); MONOCYTES % (AUTO) 4 % (0-12); NEUTROPHILS # (AUTO) 12.8 10^3/uL (1.8-7.8); NEUTROPHILS % (AUTO) 90 % (42-75); PLATELET COUNT 279 10^3/uL (130-400); WHITE BLOOD COUNT 14.2 10^3/uL (4.3-11.0)
[2021-10-27 18:04] LABS: HEMOGLOBIN 5.6 g/dL (13.3-17.7)
[2021-10-27 18:05] LABS: HEMATOCRIT 18 % (40-54)
[2021-10-27] MEDS ORDERED: MEROPENEM 1000 MG (MERREM) VIAL IV ONE (18:18)
[2021-10-27] MEDS ORDERED: methylPREDNISolone 40 MG/ML (Solu-MEDROL) VIAL ONE (18:18)
[2021-10-27] MEDS ORDERED: NS (IVPB) 100 ML ONE (18:19)
[2021-10-27] MEDS ORDERED: SUCRALFATE 1 GM (CARAFATE) TAB ONE (18:19)
[2021-10-27] MEDS: methylPREDNISolone 40 MG/ML (Solu-MEDROL) VIAL IV SCH (18:23)
[2021-10-27] MEDS: SUCRALFATE 1 GM (CARAFATE) TAB PO SCH ×2 (18:24→22:27)
[2021-10-27 18:29] LABS: ALBUMIN 2.8 GM/DL (3.2-4.5); CHLORIDE 90 MMOL/L (98-107); POTASSIUM 3.7 MMOL/L (3.6-5.0); SODIUM 126 MMOL/L (135-145)
[2021-10-27 18:30] LABS: CALCIUM 7.7 MG/DL (8.5-10.1)
[2021-10-27 18:32] LABS: GLUCOSE 107 MG/DL (70-105)
[2021-10-27 18:33] LABS: BILIRUBIN,TOTAL 0.3 MG/DL (0.1-1.0); CARBON DIOXIDE 24 MMOL/L (21-32)
[2021-10-27 18:35] LABS: ALKALINE PHOSPHATASE 56 U/L (40-136); CREATININE SERUM 1.27 MG/DL (0.60-1.30); GFR ESTIMATED 57
[2021-10-27 18:36] LABS: BUN/CREATININE RATIO 33
[2021-10-27] MEDS: inSUlin ASPART (NovoLOG) 1 UNIT/0.01 ML (CHARGE PER UNIT) SC SCH ×2 (18:36→21:39)
[2021-10-27 18:38] LABS: ALANINE AMINOTRANSFERASE 23 U/L (0-55)
[2021-10-27] MEDS ORDERED: VANCOMYCIN 1000 MG/VIAL ONE (18:41)
[2021-10-27] MEDS ORDERED: NS (IVPB) 250 ML ONE (18:42)
[2021-10-27] MEDS ORDERED: NS IV 500 ML 500 ML ONE (18:42)
[2021-10-27 18:59] LABS: BAND NEUTROPHILS 2 %; LYMPHOCYTES % (MANUAL) 3 %; MONOCYTES % (MANUAL) 3 %; NEUTROPHILS % (MANUAL) 91 %; PROLYMPHOCYTE % 1 %
[2021-10-27 19:00] LABS: HYPOCHROMASIA SLIGHT; MICROCYTOSIS SLIGHT; POLYCHROMASIA SLIGHT
--- NOTE | 2021-10-27 19:33 | CONSULTATION REPORT ---
DATE OF SERVICE: 10/27/2021 ADMITTING PHYSICIAN: Dr. Chase. HISTORY OF PRESENT ILLNESS: The patient is an 81-year-old male, who we have seen recently. He was initially admitted for pneumonia as well as atrial fibrillation with a rapid ventricular response. He also does have a host of other medical comorbidities including COPD and chronic kidney disease. He was found to be anemic and was scheduled for an EGD and colonoscopy; however, due to his respiratory status and acute inpatient rehabilitation, this was canceled. His respiratory status slowly did improve and on 10/24/2021, he underwent an EGD and colonoscopy. He was found to have a reflux esophagitis, Thayer grade III as well as a moderate size hiatal hernia 3.5 to 4 cm in size. There was a moderate gastritis with a small healed antral ulcer approximately 3 mm in size. There were also chronic stage II external and internal hemorrhoids; however, there were no active bleeding sources identified. He returned to inpatient rehabilitation, where he continued to improve and was then transferred to [facility] under swing bed status. He developed worsening shortness of breath requiring more oxygen. He also is severely weak. When he was discharged, his hemoglobin was 8.0; today, his hemoglobin was 6.1; however, again, he is not showing any signs of clinical bleeding. PAST MEDICAL HISTORY: COPD, hypertension, chronic kidney disease, and paroxysmal atrial fibrillation with rapid ventricular response. PAST SURGICAL HISTORY: None known. ALLERGIES: PENICILLIN. MEDICATIONS: Aspirin 81 mg daily, atorvastatin 40 mg daily, diltiazem 180 mg daily, famotidine 20 mg daily, levothyroxine 112 mcg daily, prednisone 10 mg daily, and Xarelto b.i.d. SOCIAL HISTORY: Previous smoker, greater than 50 pack years. Negative alcohol. FAMILY HISTORY: Noncontributory. REVIEW OF SYSTEMS: This is a well-nourished male, who is currently short of breath and extremely weak. He also does have some intermittent cough as well as sputum production. No nausea, vomiting. No diarrhea or constipation. No known red blood per rectum nor any dark tarry stools. No fever, chills, and no recent inadvertent weight loss. All other review of systems negative. PHYSICAL EXAMINATION: VITAL SIGNS: Blood pressure 101/54, pulse 85, respirations 19, and pulse ox 100% on 3 liters nasal cannula. CHEST: Scattered wheezes and distant breath sounds bilaterally. HEART: Regular, no murmurs. EXTREMITIES: No lower extremity edema and negative Homans sign. HEENT: No scleral icterus. NECK: No cervical lymphadenopathy. ABDOMEN: Soft, nontender, and nondistended. SKIN: Warm and dry. LABORATORY DATA: WBC 14.3, hemoglobin 5.6, hematocrit 18, and platelets 279. ASSESSMENT AND PLAN: An 81-year-old male with multiple medical problems including bilateral pneumonia, paroxysmal atrial fibrillation with rapid ventricular response, severe weakness and anemia. At this time, his physical capacity is poor. Our recommendation is to proceed with conservative management with resuscitation with blood products as necessary. He is unsure of the etiology of his anemia; however, maybe a recurrent ulcer; however, also the possibility of bleeding from the small bowel. Once stable, he may benefit from a tagged red blood cell scan. For now in his frail condition, we will just recommend resuscitation and monitoring, clinical status as well as a lab work. Job ID: [id number] DocumentID: [id number] Dictated Date: 10/27/2021 18:18:45 Access Control Specialist Date: 10/27/2021 19:32:54 Dictated By: EDVIN MARROQUIN MD [facility]
[2021-10-27] MEDS: SENNOSIDES 8.6 MG (SENOKOT) TAB PO SCH (21:54)
[2021-10-27] MEDS: DOCUSATE SODIUM 100 MG (COLACE) CAP PO SCH (21:54)
[2021-10-27] MEDS ORDERED: FUROSEMIDE 40 MG/4 ML INJ (LASIX) ONE (22:25)
[2021-10-27] MEDS: PANTOPRAZOLE 40 MG (PROTONIX) VIAL IV SCH (22:27)
[2021-10-27] MEDS: TAMSULOSIN 0.4 MG (FLOMAX) CAP PO SCH (22:27)
[2021-10-27] MEDS: MONTELUKAST 10 MG (SINGULAIR) TAB PO SCH (22:28)
[2021-10-28] VITALS (27 sets, daily range): BP systolic 91–136; BP diastolic 53–92
[2021-10-28 00:25] LABS: HEMOGLOBIN 7.3 g/dL (13.3-17.7)
[2021-10-28] MEDS: MEROPENEM 500 MG/NS 100 ML IVPB IV SCH ×10 (01:03→23:29)
[2021-10-28] MEDS: methylPREDNISolone 40 MG/ML (Solu-MEDROL) VIAL IV SCH ×5 (01:03→23:28)
[2021-10-28 04:41] LABS: BASOPHILS % (AUTO) 0 % (0-10)
[2021-10-28 04:42] LABS: BASOPHILS # (AUTO) 0.1 10^3/uL (0.0-0.1); EOSINOPHILS # (AUTO) 3.5 10^3/uL (0.0-0.3); EOSINOPHILS % (AUTO) 17 % (0-10); LYMPHOCYTES # (AUTO) 0.3 10^3/uL (1.0-4.0); LYMPHOCYTES % (AUTO) 2 % (12-44); MEAN CORPUSCULAR HEMOGLOBIN 31 pg (25-34); MEAN CORPUSCULAR HGB CONC 33 g/dL (32-36); MEAN CORPUSCULAR VOLUME 93 fL (80-99); MEAN PLATELET VOLUME 9.9 fL (9.0-12.2); MONOCYTES # (AUTO) 0.2 10^3/uL (0.0-1.0); MONOCYTES % (AUTO) 1 % (0-12); NEUTROPHILS # (AUTO) 15.8 10^3/uL (1.8-7.8); NEUTROPHILS % (AUTO) 78 % (42-75); PLATELET COUNT 242 10^3/uL (130-400); WHITE BLOOD COUNT 20.4 10^3/uL (4.3-11.0)
[2021-10-28 04:46] LABS: HEMOGLOBIN 6.7 g/dL (13.3-17.7)
[2021-10-28 04:47] LABS: HEMATOCRIT 20 % (40-54)
[2021-10-28 05:02] LABS: ALBUMIN 2.8 GM/DL (3.2-4.5); POTASSIUM 3.9 MMOL/L (3.6-5.0)
[2021-10-28 05:03] LABS: CALCIUM 7.7 MG/DL (8.5-10.1)
[2021-10-28 05:05] LABS: TOTAL PROTEIN 5.1 GM/DL (6.4-8.2)
[2021-10-28 05:06] LABS: BILIRUBIN,TOTAL 0.7 MG/DL (0.1-1.0)
[2021-10-28 05:08] LABS: CREATININE SERUM 1.32 MG/DL (0.60-1.30); PHOSPHORUS 2.6 MG/DL (2.3-4.7)
[2021-10-28 05:11] LABS: MAGNESIUM 2.2 MG/DL (1.6-2.4)
[2021-10-28 05:16] LABS: ABG BASE EXCESS 5.2 MMOL/L (-2.5-2.5); ABG OXYGEN SATURATION 99 % (94-100); ABG PCO2 32 MMHG (35-45); ABG PH 7.55 (7.37-7.43); ABG PO2 86 MMHG (79-93); ABG TCO2 28.8 MMOL/L (21.0-31.0)
--- NOTE | 2021-10-28 05:17 | Tele-ICU Progress Note ---
Subjective Date Seen by a Provider: Oct 28, 2021 Time Seen by a Provider: 05:17 Sepsis Event Evaluation Height, Weight, BMI Height: '" Weight: lbs. oz. kg; 31.61 BMI Method: Focused Exam Lactate Level 10/27/21 17:50: Lactic Acid Level 2.47*H 10/27/21 23:50: Lactic Acid Level 2.98*H 10/28/21 04:31: Lactic Acid Level 1.71 Lactic Acid Level Laboratory Tests Test 10/28/21 04:31 Lactic Acid Level 1.71 MMOL/L (0.50-2.00) Exam Exam Patient acknowledged, consented, and participated in this virtual visit which was conducted using real time audio/video Vital Signs Date Time Temp Pulse Resp B/P (MAP) Pulse Ox O2 Delivery O2 Flow Rate FiO2 10/28/21 01:00 80 10/28/21 00:00 99 Nasal Cannula 3.00 10/27/21 23:00 70 19 128/65 (86) 100 Nasal Cannula 3.00 10/27/21 22:00 76 14 125/74 (91) 99 Nasal Cannula 3.00 10/27/21 21:37 36.1 77 16 120/65 97 Nasal Cannula 3.00 10/27/21 21:36 36.1 77 16 120/65 97 Nasal Cannula 3.00 10/27/21 21:00 81 16 124/64 (84) 100 Nasal Cannula 3.00 10/27/21 20:00 73 15 126/94 (105) 100 Nasal Cannula 3.00 10/27/21 20:00 97 Nasal Cannula 3.00 10/27/21 19:52 36.1 10/27/21 19:08 36.1 82 12 123/69 Nasal Cannula 3.00 10/27/21 19:00 84 10/27/21 19:00 86 17 123/69 (87) 100 Nasal Cannula 3.00 10/27/21 18:49 36.4 82 21 86/56 97 Nasal Cannula 3.00 10/27/21 18:23 36.5 10/27/21 18:00 85 19 101/64 (76) 100 Nasal Cannula 3.00 10/27/21 17:18 85 11 104/60 (75) 100 Nasal Cannula 3.00 10/27/21 17:05 Nasal Cannula 3.00 I & O 10/28/21 07:00 Intake Total 563.2 ml Output Total 700 ml Balance -136.8 ml Height & Weight Height: '" Weight: lbs. oz. kg; 31.61 BMI Method: General Appearance: Chronically ill, Obese Peripheral Pulses: 1+ Dorsalis Pedis (R), 1+ Left Dors-Pedis (L) Results Lab Laboratory Tests 10/27/21 17:37 10/27/21 23:50 10/28/21 04:31 Assessment/Plan Assessment/Plan Pt admitted with GI bleed; continues to bleed/ hb<7; gi to be informed keep npo for now 1u prbc bp on the lower sdie ) lactic acid<2: we will give 500cc LR bolus FRANNY OSMAN MD Oct 28, 2021 05:17
[2021-10-28 05:18] LABS: ALLENS TEST YES-POS; INSPIRED O2 3L; PATIENT TEMP 37.1; VENTILATOR NO
[2021-10-28] MEDS ORDERED: LACTATED RINGERS 1,000 ML IV ONE (05:24)
[2021-10-28] MEDS: NOREPINEPHRINE 8 MG/250 ML 250 ML IV SCH ×2 (05:26→18:16)
[2021-10-28] MEDS ORDERED: LACTATED RINGERS 500 ML IV SCH (05:30)
[2021-10-28] MEDS: MAGNESIUM 1 GM/100 ML IVPB 100 ML IV SCH (05:32)
[2021-10-28] MEDS: POTASSIUM CL 10MEQ/50ML IVPB 50 ML IV SCH (05:32)
[2021-10-28] MEDS ORDERED: NS IV 500 ML 500 ML IV SCH (05:45)
[2021-10-28] MEDS: SUCRALFATE 1 GM (CARAFATE) TAB PO SCH ×4 (06:41→20:50)
[2021-10-28] MEDS: inSUlin ASPART (NovoLOG) 1 UNIT/0.01 ML (CHARGE PER UNIT) SC SCH ×4 (06:41→21:05)
[2021-10-28] MEDS: LEVOTHYROXINE 112 MCG (LEVOTHROID) TAB PO SCH (06:41)
[2021-10-28] MEDS: KCL 20 MEQ TAB (K-DUR) PO SCH (06:41)
[2021-10-28] MEDS: RT-BUDESONIDE NEBS 0.5 MG/2ML (PULMICORT) AMP INH SCH ×2 (07:08→21:12)
[2021-10-28] MEDS: RT-ALBUTEROL/IPRATROPIUM 3 ML (DUONEB) VIAL INH SCH ×5 (07:08→21:12)
[2021-10-28] MEDS: VANCOMYCIN 750 MG/NS 250 ML IVPB IV SCH ×4 (07:42→18:13)
[2021-10-28] MEDS: PANTOPRAZOLE 40 MG (PROTONIX) VIAL IV SCH ×2 (07:42→20:48)
[2021-10-28] MEDS: TAMSULOSIN 0.4 MG (FLOMAX) CAP PO SCH ×2 (07:42→20:49)
[2021-10-28] MEDS: LORATADINE (CLARITIN) 10 MG TAB PO SCH (07:43)
[2021-10-28] MEDS: SENNOSIDES 8.6 MG (SENOKOT) TAB PO SCH ×2 (07:43→20:50)
[2021-10-28] MEDS: DOCUSATE SODIUM 100 MG (COLACE) CAP PO SCH ×2 (07:43→20:50)
--- NOTE | 2021-10-28 07:58 | Diagnostic Imaging Report ---
INDICATION: Dyspnea Frontal chest obtained at 12:07 hours a.m. and compared to 10/27/2021 Heart and mediastinal silhouette are normal in appearance. There is no change in right basilar infiltrate. There is no pneumothorax. There is minimal trace of pleural fluid in the right costophrenic angle. Right-sided central venous catheter is unchanged. IMPRESSION: No change in right basilar infiltrate with trace right pleural effusion. No new abnormality. Dictated by: Dictated on workstation # [id number]
--- NOTE | 2021-10-28 10:44 | Consultation-Cardiology ---
HPI-Cardiology Cardiology Consultation: Date of Consultation 10/28/2021 Date of Admission 10/27/2021 Attending Physician Lesly Mckinley MD Admitting Physician Molly Flores MD Consulting Physician SHERRI CHO JR, MD HPI: Time Seen by a Provider: 10:39 Chief Complaint: Reason for consultation: Shortness of breath. At the pleasure of seeing Bharat in the intensive care unit at [facility] in [place], [place] this morning. He is known to me from his recent hospitalization in our facility. Last week he was transferred to [facility] so that he could be closer to family. Yesterday he tells me he was trying to swallow pills and was having trouble swallowing them. When this happened, he became more acutely short of breath. He denies choking on the pills. Because of the worsening shortness of breath, he was transferred back to our facility and admitted to the intensive care unit. His peripheral edema had gotten worse over the past couple of days but is improved today. This morning his shortness of breath is somewhat improved. He denies chest discomfort. He denies paroxysmal nocturnal dyspnea, orthopnea, or palpitations. He has had some lightheaded spells but denies syncope. Certain portions of this document may have been dictated utilizing voice recognition technology. Inherent to this technology, typographical and grammatical errors may exist. As much as I am diligent to identify and correct these mistakes, some errors may remain in the document. Review of Systems-Cardiology Review of Systems Other comments Review of 10 organ systems is as per the history of present illness, otherwise negative. SKR-Gnwsly-Qyzkxg Hx Patient Social History Smoking Status: Former Smoker Have you traveled recently?: No Alcohol Use?: No Pt feels they are or have been: No Past Medical History PMH As described under Assessment. Family Medical History Family Medical History: The patient does not know of any family history of premature coronary artery disease in first-degree relatives. Allergies and Home Medications Allergies Coded Allergies: Penicillins (Unverified Allergy, Mild, RASH, 12/23/06) Patient Home Medication List Home Medication List Reviewed: Yes Atorvastatin Calcium (Atorvastatin Calcium) 40 Mg Tablet, 40 MG PO HS, (Reported) Entered as Reported by: AMMON KING on 07/06/20 1315 Budesonide (Budesonide) 0.5 Mg/2 Ml Ampul.neb, 0.5 MG INH RTBID Prescribed by: FRANCISCO BHAKTA on 10/25/21603 Bumetanide (Bumetanide) 1 Mg/4 Ml Inj, 2 MG IV BID@0700,1700 Prescribed by: FRANCISCO BHAKTA on 10/25/21603 Diltiazem HCl (Diltiazem ER) 180 Mg Capsule.er, 180 MG PO DAILY, (Reported) Entered as Reported by: DIANE SUMMERS on 10/08/21951 Guaifenesin/Codeine (Robitussin Ac (Codeine) Syrup) 10 Ml Syrp, 10 ML PO Q4H PRN for COUGH Prescribed by: FRANCISCO BHAKTA on 10/25/21603 Ipratropium/Albuterol Sulfate (Iprat-Albut 0.5-3(2.5) mg/3 ml) 3 Ml Ampul.neb, 3 ML INH RTBID Prescribed by: FRANCISCO BHAKTA on 10/25/21603 Ipratropium/Albuterol Sulfate (Iprat-Albut 0.5-3(2.5) mg/3 ml) 3 Ml Ampul.neb, 3 ML INH RTQ2H PRN for SHORTNESS OF BREATH Prescribed by: FRANCISCO BHAKTA on 10/25/21603 Lactobacillus Acidophilus/Pect (Acidophilus-Pectin Capsule) 1 Each Capsule, 2 EACH PO ACHS Prescribed by: FRANCISCO BHAKTA on 10/25/21603 Levothyroxine Sodium (Levothyroxine Sodium) 112 Mcg Tablet, 112 MCG PO DAILY Prescribed by: FRANCISCO BHAKTA on 10/25/21603 Loratadine (Loratadine) 10 Mg Tablet, 10 MG PO DAILY Prescribed by: FRANCISCO BHAKTA on 10/25/21603 Montelukast Sodium (Montelukast Sodium) 10 Mg Tablet, 10 MG PO HS Prescribed by: FRANCISCO BHAKTA on 10/25/21603 Pantoprazole Sodium (Pantoprazole Sodium) 40 Mg Tablet.dr, 40 MG PO BID Prescribed by: FRANCISCO BHAKTA on 10/25/21603 Rivaroxaban (Xarelto Tablet) 20 Mg Tablet, 20 MG PO DAILY@1700 Prescribed by: FRANCISCO BHAKTA on 1/20/22 0604 Sennosides (Senna Lax) 8.6 Mg Tablet, 8.6 MG PO BID Prescribed by: FRANCISCO BHAKTA on 10/25/21 06 Sucralfate (Sucralfate) 1 Gm Tablet, 1 GM PO ACHS Prescribed by: FRANCISCO BHAKTA on 10/25/21 06 Tamsulosin HCl (Flomax) 0.4 Mg Cap, 0.4 MG PO BID Prescribed by: FRANCISCO BHAKTA on 10/25/21 0604 Discontinued Medications Aspirin (Aspirin) 81 Mg Tab.chew, 81 MG PO DAILY, (Reported) Entered as Reported by: JOSAFAT HUNTER on 10/06/21 0805 Famotidine (Pepcid) 20 Mg Tablet, 20 MG PO DAILY, (Reported) Entered as Reported by: DIANE SUMMERS on 10/08/21 09 Prednisone (Prednisone) 10 Mg Tab, 10 MG PO DAILY, (Reported) Entered as Reported by: DIANE SUMMERS on 10/08/21951 Exam Vital Signs Vital Signs Date Time Temp Pulse Resp B/P (MAP) Pulse Ox O2 Delivery O2 Flow Rate FiO2 10/28/21 10:00 86 7 116/58 (77) 98 Nasal Cannula 2.00 10/28/21 08:48 36.3 Physical Exam General: Alert. No acute distress. Well nourished and appears stated age. He is obese. He is wearing oxygen by nasal cannula. Eye: Extraocular movements are intact. Conjunctivae are clear. There are no xanthelasma. HENT: Normocephalic. Atraumatic. Carotid pulsations 2/2 without bruits. Neck: Jugular venous pressure does not appear elevated. No thyromegaly appreciated. Respiratory: Lungs have diffuse wheezes. Respirations are non-labored. Breath sounds are equal. Symmetrical chest wall expansion. Cardiovascular: Normal rate. Regular rhythm. No murmur. No gallop. Point of maximal impulse is not appear displaced. Good pulses equal in all extremities. 1+ bilateral pretibial edema. Gastrointestinal: Soft. Normal bowel sounds. Skin: Skin turgor is normal. There is no pallor. Musculoskeletal: No kyphosis or scoliosis appreciated. Neurologic: Alert and oriented to person, place, time. Cranial nerves 3-12 appear grossly intact. The patient has good motor tone strength in the upper and lower extremities bilaterally. Psychiatric: Cooperative. Appropriate mood & affect. Labs Laboratory Tests Test 10/27/21 17:20 10/27/21 17:37 10/27/21 17:45 10/27/21 17:50 Range/Units Urine Color YELLOW Urine Clarity CLEAR Urine pH 7.5 5-9 Urine Specific [place] 1.010 L 1.016-1.022 Urine Protein NEGATIVE NEGATIVE Urine Glucose (UA) NEGATIVE NEGATIVE Urine Ketones NEGATIVE NEGATIVE Urine Nitrite NEGATIVE NEGATIVE Urine Bilirubin NEGATIVE NEGATIVE Urine Urobilinogen 0.2 < = 1.0 MG/DL Urine Leukocyte Esterase NEGATIVE NEGATIVE Urine RBC (Auto) 3+ H NEGATIVE Urine RBC 50-100 H /HPF Urine WBC 0-2 /HPF Urine Squamous Epithelial Cells NONE /HPF Urine Crystals NONE /LPF Urine Bacteria TRACE /HPF Urine Casts NONE /LPF Urine Mucus NEGATIVE /LPF Urine Culture Indicated NO White Blood Count 14.2 H 4.3-11.0 10^3/uL Red Blood Count 1.88 L 4.30-5.52 10^6/uL Hemoglobin 5.6 #*L 13.3-17.7 g/dL Hematocrit 18 *L 40-54 % Mean Corpuscular Volume 95 80-99 fL Mean Corpuscular Hemoglobin 30 25-34 pg Mean Corpuscular Hemoglobin Concent 32 32-36 g/dL Red Cell Distribution Width 21.0 H 10.0-14.5 % Platelet Count 279 130-400 10^3/uL Mean Platelet Volume 10.1 9.0-12.2 fL Immature Granulocyte % (Auto) 2 % Neutrophils (%) (Auto) 90 H 42-75 % Lymphocytes (%) (Auto) 4 L 12-44 % Monocytes (%) (Auto) 4 0-12 % Eosinophils (%) (Auto) 0 0-10 % Basophils (%) (Auto) 0 0-10 % Neutrophils # (Auto) 12.8 H 1.8-7.8 10^3/uL Lymphocytes # (Auto) 0.6 L 1.0-4.0 10^3/uL Monocytes # (Auto) 0.5 0.0-1.0 10^3/uL Eosinophils # (Auto) 0.0 0.0-0.3 10^3/uL Basophils # (Auto) 0.0 0.0-0.1 10^3/uL Immature Granulocyte # (Auto) 0.2 H 0.0-0.1 10^3/uL Neutrophils % (Manual) 91 % Lymphocytes % (Manual) 3 % Prolymphocyte % 1 % Monocytes % (Manual) 3 % Band Neutrophils 2 % Polychromasia SLIGHT Hypochromasia SLIGHT Microcytosis SLIGHT Macrocytosis SLIGHT Blood Morphology Comment Sodium Level 126 L 135-145 MMOL/L Potassium Level 3.7 3.6-5.0 MMOL/L Chloride Level 90 L 98-107 MMOL/L Carbon Dioxide Level 24 21-32 MMOL/L Anion Gap 12 5-14 MMOL/L Blood Urea Nitrogen 42 H 7-18 MG/DL Creatinine 1.27 0.60-1.30 MG/DL Estimat Glomerular Filtration Rate 57 BUN/Creatinine Ratio 33 Glucose Level 107 H 70-105 MG/DL Calcium Level 7.7 L 8.5-10.1 MG/DL Corrected Calcium 8.7 8.5-10.1 MG/DL Total Bilirubin 0.3 0.1-1.0 MG/DL Aspartate Amino Transf (AST/SGOT) 15 5-34 U/L Alanine Aminotransferase (ALT/SGPT) 23 0-55 U/L Alkaline Phosphatase 56 40-136 U/L Troponin I < 0.028 <0.028 NG/ML B-Type Natriuretic Peptide 32.2 <100.0 PG/ML Total Protein 5.0 L 6.4-8.2 GM/DL Albumin 2.8 L 3.2-4.5 GM/DL Procalcitonin 0.42 H <0.10 NG/ML Blood Gas Puncture Site LEFT RADIAL Blood Gas Patient Temperature 36.5 Arterial Blood pH 7.58 H 7.37-7.43 Arterial Blood Partial Pressure CO2 31 L 35-45 MMHG Arterial Blood Partial Pressure O2 92 79-93 MMHG Arterial Blood HCO3 29 H 23-27 MMOL/L Arterial Blood Total CO2 29.8 21.0-31.0 MMOL/L Arterial Blood Oxygen Saturation 99 94-100 % Arterial Blood Base Excess 6.2 H -2.5-2.5 MMOL/L Hank Test YES-POS Blood Gas Ventilator Setting NO Blood Gas Inspired Oxygen 31 Lactic Acid Level 2.47 *H 0.50-2.00 MMOL/L Test 10/27/21 20:14 10/27/21 20:35 10/27/21 23:50 10/28/21 04:31 Range/Units Glucometer 134 H 70-110 MG/DL Influenza Type A (RT-PCR) Not Detected Not Detecte Influenza Type B (RT-PCR) Not Detected Not Detecte SARS-CoV-2 RNA (RT-PCR) Not Detected Not Detecte Hemoglobin 7.3 #L 6.7 *L 13.3-17.7 g/dL Hematocrit 22 L 20 *L 40-54 % Lactic Acid Level 2.98 *H 1.71 0.50-2.00 MMOL/L White Blood Count 20.4 H 4.3-11.0 10^3/uL Red Blood Count 2.16 L 4.30-5.52 10^6/uL Mean Corpuscular Volume 93 80-99 fL Mean Corpuscular Hemoglobin 31 25-34 pg Mean Corpuscular Hemoglobin Concent 33 32-36 g/dL Red Cell Distribution Width 19.5 H 10.0-14.5 % Platelet Count 242 130-400 10^3/uL Mean Platelet Volume 9.9 9.0-12.2 fL Immature Granulocyte % (Auto) 2 % Neutrophils (%) (Auto) 78 H 42-75 % Lymphocytes (%) (Auto) 2 L 12-44 % Monocytes (%) (Auto) 1 0-12 % Eosinophils (%) (Auto) 17 H 0-10 % Basophils (%) (Auto) 0 0-10 % Neutrophils # (Auto) 15.8 H 1.8-7.8 10^3/uL Lymphocytes # (Auto) 0.3 L 1.0-4.0 10^3/uL Monocytes # (Auto) 0.2 0.0-1.0 10^3/uL Eosinophils # (Auto) 3.5 H 0.0-0.3 10^3/uL Basophils # (Auto) 0.1 0.0-0.1 10^3/uL Immature Granulocyte # (Auto) 0.4 H 0.0-0.1 10^3/uL Sodium Level 129 L 135-145 MMOL/L Potassium Level 3.9 3.6-5.0 MMOL/L Chloride Level 93 L 98-107 MMOL/L Carbon Dioxide Level 24 21-32 MMOL/L Anion Gap 12 5-14 MMOL/L Blood Urea Nitrogen 47 H 7-18 MG/DL Creatinine 1.32 H 0.60-1.30 MG/DL Estimat Glomerular Filtration Rate 55 BUN/Creatinine Ratio 36 Glucose Level 134 H 70-105 MG/DL Calcium Level 7.7 L 8.5-10.1 MG/DL Corrected Calcium 8.7 8.5-10.1 MG/DL Phosphorus Level 2.6 2.3-4.7 MG/DL Magnesium Level 2.2 1.6-2.4 MG/DL Total Bilirubin 0.7 0.1-1.0 MG/DL Aspartate Amino Transf (AST/SGOT) 15 5-34 U/L Alanine Aminotransferase (ALT/SGPT) 23 0-55 U/L Alkaline Phosphatase 63 40-136 U/L Total Protein 5.1 L 6.4-8.2 GM/DL Albumin 2.8 L 3.2-4.5 GM/DL Procalcitonin 0.52 H <0.10 NG/ML Test 10/28/21 05:12 10/28/21 10:15 Range/Units Blood Gas Puncture Site RIGHT RADIAL Blood Gas Patient Temperature 37.1 Arterial Blood pH 7.55 H 7.37-7.43 Arterial Blood Partial Pressure CO2 32 L 35-45 MMHG Arterial Blood Partial Pressure O2 86 79-93 MMHG Arterial Blood HCO3 28 H 23-27 MMOL/L Arterial Blood Total CO2 28.8 21.0-31.0 MMOL/L Arterial Blood Oxygen Saturation 99 94-100 % Arterial Blood Base Excess 5.2 H -2.5-2.5 MMOL/L Hank Test YES-POS Blood Gas Ventilator Setting NO Blood Gas Inspired Oxygen 3L Glucometer 146 H 70-110 MG/DL ECG Impression ECG Comment Electrocardiogram from 10/27 shows sinus rhythm with possible old anteroseptal myocardial infarction and nonspecific ST-T wave changes in diffuse leads Diagnosis/Problems Diagnosis/Problems (1) Chronic heart failure with preserved ejection fraction (HFpEF) Assessment & Plan: I suspect at this point, his heart failure is compensated. His BNP level is not significantly elevated and the previous pleural effusions have improved. He is now receiving a second blood transfusion. I will give him 1 dose of intravenous bumetanide following the second blood transfusion. I would avoid giving him excessive amounts of intravenous fluid. (2) Paroxysmal atrial fibrillation Status: Acute Assessment & Plan: He had paroxysmal atrial fibrillation during his previous hospitalization. I did have him on rivaroxaban for stroke prophylaxis. This had to be stopped at 1 point due to the anemia which has now recurred. I would suggest we hold anticoagulants for the time being. (3) Primary hypertension Status: Chronic Assessment & Plan: He was actually having some hypotension when he was first admitted to the intensive care unit. We will continue to monitor his blood pressures and resume his normal antihypertensive medication if needed. (4) Mixed hyperlipidemia Status: Chronic Assessment & Plan: I have restarted his atorvastatin. (5) Acute on chronic respiratory failure with hypoxemia Status: Acute Assessment & Plan: I suspect the majority of his shortness of breath is related to underlying pulmonary disease and not heart failure. SHERRI CHO JR, MD Oct 28, 2021 10:44
[2021-10-28] MEDS ORDERED: BUMETANIDE 1 MG/4 ML (BUMEX) VIAL IV ONE (10:45)
--- NOTE | 2021-10-28 13:01 | History & Physical-Hospitalist ---
MARIA INESJUANIAMBROSIO A MED STUDENT 10/28/21 1301: History of Present Illness HPI/Chief Complaint This is an 81 yo male who was transferred from [facility] yesterday for pneumonia and Afib with RVR. Pt has hx of HTN, COPD, hypothyroidism, Afib with RVR on anticoagulation and CKD. Pt recently underwent EGD and colonoscopy and was found to have reflux esophagitis, hiatal hernia and gastritis with small healed antral ulcer. Pt has been in inpatient rehab facility and [place] swing bed to recover strength. Pt states yesterday he had trouble taking his oral m edications and became SOA. Today he feels better than yesterday, but is still SOA, especially with exertion. Pt reports having diarrhea for the last day. Pt denies fever, chills, chest pain, palpitations, N/V, urinary frequency or burning. Source: patient Exam Limitations: no limitations Date Seen 10/28/21 Time Seen by a Provider: 08:20 Attending Physician Kiel Escobar MD PCP Molly Flores MD Referring Physician Date of Admission Oct 27, 2021 at 17:10 Home Medications & Allergies Home Medications Reviewed patient Home Medication Reconciliation performed by pharmacy medication reconciliations mathematical technician and/or nursing. Patients Allergies have been reviewed. Allergies Allergies Coded Allergies Penicillins (Unverified Allergy, Mild, RASH, 12/23/06) Past Ykjgron-Gkdkpb-Ddwoci Hx Patient Social History Tobacco Use?: No Smoking Status: Former Smoker Use of E-Cig and/or Vaping dev: No Substance use?: No Alcohol Use?: No Pt feels they are or have been: No Immunizations Up To Date Tetanus Booster (TDap): More Than 5 Years Hepatitis A: No Hepatitis B: No Current Status Advance Directives: No Communicates: Verbally Primary Language: Swedish Preferred Spoken Language: Swedish Is interpretation needed?: No Sensory deficits: Vision impairment Implanted or Applied Medical D: None Past Medical History Atrial Fibrillation, High Cholesterol, Hypertension Hypothyroidsim Family Medical History No Pertinent Family Hx, Diabetes Review of Systems Constitutional: No chills, No dizziness, No fever; weakness (when up walking around) EENTM: No blurred vision Respiratory: No cough; dyspnea on exertion, short of breath Cardiovascular: No chest pain, No palpitations Gastrointestinal: No abdominal pain, No constipation; diarrhea; No melena, No nausea, No vomiting Genitourinary: No dysuria, No frequency Musculoskeletal: no symptoms reported Skin: no symptoms reported Psychiatric/Neurological: No Symptoms Reported Physical Exam Physical Exam Vital Signs Vital Signs - First Documented 10/27/21 10/27/21 10/27/21 17:05 17:18 18:23 Temp 36.5 Pulse 85 Resp 11 B/P (MAP) 104/60 (75) Pulse Ox 100 O2 Delivery Nasal Cannula O2 Flow Rate 3.00 Capillary Refill : Height, Weight, BMI Height: '" Weight: lbs. oz. kg; 31.61 BMI Method: General Appearance: No Apparent Distress, Obese HEENT: PERRL/EOMI Respiratory: Chest Non Tender, No Accessory Muscle Use, No Respiratory Distress, Decreased Breath Sounds (diminished breath sounds bilaterally) Cardiovascular: Irregularly Irregular (Afib) Gastrointestinal: Normal Bowel Sounds, Non Tender, Soft Extremity: Pedal Edema (mild pitting LE bilaterally) Neurologic/Psychiatric: Alert, Oriented x3, Normal Mood/Affect Skin: Normal Color, Warm/Dry Results Results/Procedures Labs Laboratory Tests 10/27/21 17:37 10/27/21 23:50 10/28/21 04:31 Patient resulted labs reviewed. Assessment/Plan Admission Diagnosis Severe Sepsis d/t Pneumonia Reason for Inpatient Admission: Severe Sepsis d/t Pneumonia Assessment and Plan Severe Sepsis d/t Pneumonia Afib with RVR Acute blood loss anemia Acute respiratory failure with hypoxia COPD Heart failure with preserved EF Acute on chronic kidney disease Poor prognosis Severe Sepsis d/t Pneumonia -CXR showed Right basilar infiltrate, slightly worsened today -BP stable -Vanc and Meropenem -Solumedrol Afib with RVR Acute blood loss anemia -2 units packed RBCs given -General surgery consulted, appreciate their recommendations -Tagged RBC scan scheduled for tomorrow d/t hx of gastric ulcer Acute respiratory failure with hypoxia -On oxygen at 2L with saturation at 98% COPD -Duoneb, Pulmicort Heart failure with preserved EF -Cardiology consulted, appreciate their recommendations Acute on chronic kidney disease -BUN and Cr worsening at 47 and 1.32 today Poor prognosis -Discussed prognosis with pt and family and he wishes to be DNR Disposition: Likely to stay 48-72 hours GI prophylaxis: Protonix Clinical Quality Measures DVT/VTE Risk/Contraindication: Contraindications-Pharm: Other *list below* Other: KIEL BURGER MD 10/28/212055: History of Present Illness Time Seen by a Provider: 11:25 Past Wexpubc-Dpsvat-Lqmath Hx Past Medical History COPD Atrial Fibrillation, High Cholesterol, Hypertension Renal Failure Gastrointestinal Bleed Hypothyroidsim Family Medical History No Pertinent Family Hx Physical Exam Physical Exam General Appearance: No Apparent Distress, Chronically ill, Obese HEENT: PERRL/EOMI, Pharynx Normal Neck: Normal Inspection, Supple Respiratory: No Respiratory Distress, Decreased Breath Sounds (diminished breath sounds bilaterally) Cardiovascular: No Murmur, Irregularly Irregular (Afib) Gastrointestinal: Normal Bowel Sounds, Non Tender, Soft, Distended Extremity: Normal Inspection, Pedal Edema (mild pitting LE bilaterally) Neurologic/Psychiatric: Alert, Oriented x3, Normal Mood/Affect, Motor Weakness Skin: Normal Color, Warm/Dry Results Results/Procedures Imaging: Reviewed Imaging Report Assessment/Plan Admission Diagnosis Admission Status: Inpatient Order (span 2 midnights) Reason for Inpatient Admission: IV antibiotics Surgical evaluation due to bleeding Assessment and Plan Chronically ill patient with prolonged hospitalization, inpatient rehab, swing bed, and now transferred back to [facility] with severe sepsis and recurrent pneumonia. He also has acute blood loss anemia with likely GI bleed. Surgery is following and may perform tagged RBC scan tomorrow. His status is highly tenuous and his prognosis is poor. I had an in depth discussion with the patient and family regarding prognosis and goals of care. The patient clearly stated that he wanted to be DNR, but later the nurse reported that after a discussion with his and daughter he wanted to be full code. Critical Care Critically Ill Patient Diagnosis/Problems Diagnosis/Problems (1) Severe sepsis Status: Acute (2) Pneumonia Status: Acute (3) Recurrent pneumonia Status: Acute (4) Acute on chronic respiratory failure with hypoxemia Status: Acute (5) ABLA (acute blood loss anemia) Status: Acute (6) Melena Status: Acute (7) Paroxysmal atrial fibrillation Status: Acute (8) COPD (chronic obstructive pulmonary disease) Status: Chronic (9) CKD (chronic kidney disease) Status: Chronic Qualifiers: Chronic kidney disease stage: stage 3 (moderate) (10) Chronic heart failure with preserved ejection fraction (HFpEF) Status: Chronic (11) Debility Status: Acute (12) Obesity Status: Chronic (13) Poor prognosis Status: Acute (14) Goals of care, counseling/discussion Status: Acute Supervisory-Addendum Brief Verification & Attestation Participated in pt care: history, MDM, physical Personally performed: exam, history, MDM, supervision of care Care discussed with: Medical Student Procedures: n/a Results interpretation: Verified all documentation A medical student performed and documented this service in my presence. I reviewed and verified all information documented by the medical student and made modifications to such information, when appropriate. I personally performed the physical exam and medical decision making. AMBROSIO MASSEY MED STUDENT Oct 28, 2021 13:01 KIEL ESCOBAR MD Oct 28, 2021 20:56
[2021-10-28 13:36] LABS: HEMOGLOBIN 7.8 g/dL (13.3-17.7)
[2021-10-28] MEDS: MONTELUKAST 10 MG (SINGULAIR) TAB PO SCH (20:49)
[2021-10-29] VITALS (24 sets, daily range): BP systolic 88–123; BP diastolic 49–105
[2021-10-29] MEDS: RT-ALBUTEROL/IPRATROPIUM 3 ML (DUONEB) VIAL INH SCH ×6 (02:21→22:28)
[2021-10-29] MEDS: MEROPENEM 500 MG/NS 100 ML IVPB IV SCH ×8 (05:09→23:42)
[2021-10-29] MEDS: methylPREDNISolone 40 MG/ML (Solu-MEDROL) VIAL IV SCH ×3 (05:10→20:30)
[2021-10-29] MEDS: KCL 20 MEQ TAB (K-DUR) PO SCH (05:10)
[2021-10-29 05:28] LABS: BASOPHILS % (AUTO) 0 % (0-10); EOSINOPHILS % (AUTO) 0 % (0-10); HEMATOCRIT 23 % (40-54); HEMOGLOBIN 7.6 g/dL (13.3-17.7); LYMPHOCYTES # (AUTO) 0.7 10^3/uL (1.0-4.0); LYMPHOCYTES % (AUTO) 4 % (12-44); MEAN CORPUSCULAR HEMOGLOBIN 31 pg (25-34); MEAN CORPUSCULAR HGB CONC 34 g/dL (32-36); MEAN CORPUSCULAR VOLUME 93 fL (80-99); MEAN PLATELET VOLUME 9.6 fL (9.0-12.2); MONOCYTES # (AUTO) 0.3 10^3/uL (0.0-1.0); MONOCYTES % (AUTO) 2 % (0-12); NEUTROPHILS # (AUTO) 16.7 10^3/uL (1.8-7.8); NEUTROPHILS % (AUTO) 91 % (42-75); PLATELET COUNT 210 10^3/uL (130-400); WHITE BLOOD COUNT 18.4 10^3/uL (4.3-11.0)
[2021-10-29 05:51] LABS: ALBUMIN 2.8 GM/DL (3.2-4.5); BILIRUBIN,TOTAL 0.6 MG/DL (0.1-1.0); CALCIUM 7.5 MG/DL (8.5-10.1); CREATININE SERUM 1.11 MG/DL (0.60-1.30); MAGNESIUM 2.2 MG/DL (1.6-2.4); PHOSPHORUS 2.2 MG/DL (2.3-4.7); POTASSIUM 3.1 MMOL/L (3.6-5.0)
[2021-10-29] MEDS: VANCOMYCIN 750 MG/NS 250 ML IVPB IV SCH ×2 (06:00)
[2021-10-29] MEDS: inSUlin ASPART (NovoLOG) 1 UNIT/0.01 ML (CHARGE PER UNIT) SC SCH ×4 (06:10→20:30)
[2021-10-29] MEDS: LEVOTHYROXINE 112 MCG (LEVOTHROID) TAB PO SCH (06:10)
[2021-10-29] MEDS: SUCRALFATE 1 GM (CARAFATE) TAB PO SCH ×4 (06:10→20:29)
[2021-10-29] MEDS: MAGNESIUM 1 GM/100 ML IVPB 100 ML IV SCH (06:11)
[2021-10-29] MEDS: POTASSIUM CL 10MEQ/50ML IVPB 50 ML IV SCH ×2 (06:11→12:28)
[2021-10-29] MEDS: RT-BUDESONIDE NEBS 0.5 MG/2ML (PULMICORT) AMP INH SCH ×2 (07:25→22:28)
--- NOTE | 2021-10-29 08:08 | Diagnostic Imaging Report ---
INDICATION: Dyspnea. Comparison is made with prior examination from 10/28/2021. FINDINGS: There is a right basilar infiltrate. There is mild cardiomegaly. Left lung is clear. There is no pneumothorax. The mediastinum is unremarkable. Central venous catheter has its tip in the superior vena cava. IMPRESSION: Right basilar infiltrate suspect for pneumonia Mild cardiomegaly. Dictated by: Dictated on workstation # [id number]
[2021-10-29] MEDS: NOREPINEPHRINE 8 MG/250 ML 250 ML IV SCH ×2 (09:12→23:27)
--- NOTE | 2021-10-29 10:07 | Cardiology Progress Note ---
Progress Note-Cardiology Events since last exam Date Seen by Provider: Oct 29, 2021 Time Seen by Provider: 10:06 Events since last exam I am following him due to heart failure. When I saw him, he was in the inte nsive care unit but has transfer orders to the medical floor. He states his shortness of breath is about the same. He was very frustrated about his care last evening. His back was hurting and he wanted to get into a chair. He denies chest discomfort, palpitations, or syncope. He still has some mild ankle edema. Certain portions of this document may have been dictated utilizing voice recognition technology. Inherent to this technology, typographical and grammatical errors may exist. As much as I am diligent to identify and correct these mistakes, some errors may remain in the document. Vitals Last set of Vitals Signs Vital Signs 10/29/21 10/29/21 10/29/21 15:44 15:45 18:00 Temp 36.5 Pulse 86 Resp 22 B/P (MAP) 99/61 (74) Pulse Ox 100 O2 Delivery Room Air O2 Flow Rate 2.00 Labs Labs Laboratory Tests 10/29/21 05:16 Exam Vital Signs Vital Signs Date Time Temp Pulse Resp B/P (MAP) Pulse Ox O2 Delivery O2 Flow Rate FiO2 10/29/21 18:00 86 22 99/61 (74) 100 Room Air 10/29/21 15:45 36.5 10/29/21 15:44 2.00 Physical Exam General: Alert. Mild respiratory distress while he is speaking, but unchanged. Eye: No xanthelasma. HENT: Normocephalic. Neck: Jugular venous pressure does not appear elevated. Respiratory: Lungs are clear to auscultation but with diffusely decreased breath sounds. Respirations are non-labored. Breath sounds are equal. Symmetrical chest wall expansion. Cardiovascular: Normal rate. Regular rhythm. No murmur. No gallop. Trace bilateral pretibial edema. Gastrointestinal: Soft. Normal bowel sounds. Skin: Warm. Dry. Neurologic: Alert and oriented to person, place, time. Cranial nerves 3-11 grossly intact. Psychiatric: Cooperative. Appropriate mood & affect. Labs Laboratory Tests Test 10/28/21 21:04 10/29/21 05:16 10/29/21 12:26 10/29/21 12:54 Range/Units Glucometer 154 H 146 H 70-110 MG/DL White Blood Count 18.4 H 4.3-11.0 10^3/uL Red Blood Count 2.42 L 4.30-5.52 10^6/uL Hemoglobin 7.6 L 13.3-17.7 g/dL Hematocrit 23 L 40-54 % Mean Corpuscular Volume 93 80-99 fL Mean Corpuscular Hemoglobin 31 25-34 pg Mean Corpuscular Hemoglobin Concent 34 32-36 g/dL Red Cell Distribution Width 18.8 H 10.0-14.5 % Platelet Count 210 130-400 10^3/uL Mean Platelet Volume 9.6 9.0-12.2 fL Immature Granulocyte % (Auto) 3 % Neutrophils (%) (Auto) 91 H 42-75 % Lymphocytes (%) (Auto) 4 L 12-44 % Monocytes (%) (Auto) 2 0-12 % Eosinophils (%) (Auto) 0 0-10 % Basophils (%) (Auto) 0 0-10 % Neutrophils # (Auto) 16.7 H 1.8-7.8 10^3/uL Lymphocytes # (Auto) 0.7 L 1.0-4.0 10^3/uL Monocytes # (Auto) 0.3 0.0-1.0 10^3/uL Eosinophils # (Auto) 0.0 0.0-0.3 10^3/uL Basophils # (Auto) 0.0 0.0-0.1 10^3/uL Immature Granulocyte # (Auto) 0.5 H 0.0-0.1 10^3/uL Sodium Level 131 L 135-145 MMOL/L Potassium Level 3.1 L 3.6-5.0 MMOL/L Chloride Level 95 L 98-107 MMOL/L Carbon Dioxide Level 23 21-32 MMOL/L Anion Gap 13 5-14 MMOL/L Blood Urea Nitrogen 36 H 7-18 MG/DL Creatinine 1.11 0.60-1.30 MG/DL Estimat Glomerular Filtration Rate 67 BUN/Creatinine Ratio 32 Glucose Level 139 H 70-105 MG/DL Calcium Level 7.5 L 8.5-10.1 MG/DL Corrected Calcium 8.5 8.5-10.1 MG/DL Phosphorus Level 2.2 L 2.3-4.7 MG/DL Magnesium Level 2.2 1.6-2.4 MG/DL Total Bilirubin 0.6 0.1-1.0 MG/DL Aspartate Amino Transf (AST/SGOT) 17 5-34 U/L Alanine Aminotransferase (ALT/SGPT) 26 0-55 U/L Alkaline Phosphatase 55 40-136 U/L Total Protein 5.0 L 6.4-8.2 GM/DL Albumin 2.8 L 3.2-4.5 GM/DL Vancomycin Level Trough 15.6 10.0-20.0 UG/ML Lab Scanned Report Transfusion Reaction Form [id number] Test 10/29/21 15:26 Range/Units Glucometer 167 H 70-110 MG/DL Diagnosis/Problems Diagnosis/Problems (1) Chronic heart failure with preserved ejection fraction (HFpEF) Status: Chronic Assessment & Plan: I suspect at this point, his heart failure is compensated. His BNP level is not significantly elevated and the previous pleural effusions have improved. I gave him 1 dose of intravenous bumetanide following a blood transfusion on 10/28. I will start him on bumetanide 1 mg once a day. This should hopefully help keep him euvolemic. (2) Paroxysmal atrial fibrillation Status: Acute Assessment & Plan: He had paroxysmal atrial fibrillation during his previous hospitalization. I did have him on rivaroxaban for stroke prophylaxis. This had to be stopped at 1 point due to the anemia which has now recurred. I would suggest we hold anticoagulants for the time being. (3) Primary hypertension Status: Chronic Assessment & Plan: He was actually having some hypotension when he was first admitted to the intensive care unit. We will continue to monitor his blood pressures and resume his normal antihypertensive medication if needed. (4) Mixed hyperlipidemia Status: Chronic Assessment & Plan: I have restarted his atorvastatin. (5) Acute on chronic respiratory failure with hypoxemia Status: Acute Assessment & Plan: I suspect the majority of his shortness of breath is related to underlying pulmonary disease and not heart failure. SHERRI CHO JR, MD Oct 29, 2021 10:07
[2021-10-29] MEDS ORDERED: BISA5TAB8 PO (11:05)
[2021-10-29] MEDS ORDERED: SIMV40TA25 PO (11:05)
[2021-10-29] MEDS ORDERED: BUME2TAB7 PO (11:05)
[2021-10-29] MEDS ORDERED: MENT71OI TP (11:05)
[2021-10-29] MEDS ORDERED: IPRA3AMP31 IH (11:05)
[2021-10-29] MEDS ORDERED: METH125V13 IJ (11:05)
[2021-10-29] MEDS ORDERED: PRED5TAB PO (11:05)
[2021-10-29] MEDS ORDERED: HEParin (CENTRAL IV FLUSH) 500 UNIT/5 ML SYR ONE (11:37)
--- NOTE | 2021-10-29 11:38 | Tele-ICU Progress Note ---
Subjective Date Seen by a Provider: Oct 29, 2021 Time Seen by a Provider: 10:41 Sepsis Event Evaluation Height, Weight, BMI Height: '" Weight: lbs. oz. kg; 31.61 BMI Method: Focused Exam Lactate Level 10/27/21 17:50: Lactic Acid Level 2.47*H 10/27/21 23:50: Lactic Acid Level 2.98*H 10/28/21 04:31: Lactic Acid Level 1.71 Exam Exam Patient acknowledged, consented, and participated in this virtual visit which was conducted using real time audio/video Vital Signs Date Time Temp Pulse Resp B/P (MAP) Pulse Ox O2 Delivery O2 Flow Rate FiO2 10/29/21 10:48 95 Room Air 10/29/21 09:00 90 20 88/56 (67) 98 Room Air 10/29/21 08:00 81 16 103/52 (69) 98 Room Air 10/29/21 07:31 100 Room Air 10/29/21 07:26 100 Room Air 10/29/21 07:00 71 14 99/49 (66) 98 Room Air 10/29/21 07:00 60 10/29/21 06:00 85 15 101/60 (74) 100 Room Air 10/29/21 05:00 90 14 105/60 (75) 100 Room Air 10/29/21 04:00 69 18 99/50 (66) 97 Room Air 10/29/21 04:00 97 Room Air 10/29/21 03:00 73 13 102/52 (69) 99 Room Air 10/29/21 02:21 99 Room Air 1.00 10/29/21 02:00 72 11 104/50 (68) 98 Room Air 10/29/21 01:00 86 10/29/21 01:00 86 22 100/52 (68) 92 Room Air 10/29/21 00:00 69 14 111/56 (74) 96 Room Air 10/29/21 00:00 99 Room Air 10/28/21 23:28 36.1 Room Air 10/28/21 23:00 75 17 107/57 (74) 100 Nasal Cannula 1.00 10/28/21 22:00 79 18 101/62 (75) 100 Nasal Cannula 1.00 10/28/21 21:13 100 High Flow N/C 1.00 10/28/21 21:12 100 High Flow N/C 1.00 10/28/21 21:02 Nasal Cannula 1.00 10/28/21 21:00 84 24 111/74 (86) 100 Nasal Cannula 2.00 10/28/21 20:00 88 17 107/60 (76) 100 Nasal Cannula 2.00 10/28/21 20:00 100 Nasal Cannula 2.00 10/28/21 20:00 36.6 10/28/21 19:00 86 10/28/21 19:00 86 91/54 (66) 100 Nasal Cannula 2.00 10/28/21 18:00 71 16 108/67 (81) 100 Nasal Cannula 2.00 10/28/21 17:00 72 16 113/60 (77) 100 Nasal Cannula 2.00 10/28/21 16:00 83 18 113/72 (86) 100 Nasal Cannula 2.00 10/28/21 15:51 36.6 10/28/21 15:47 100 Nasal Cannula 2.00 10/28/21 15:00 103 13 96/76 (83) 100 Nasal Cannula 2.00 10/28/21 14:16 100 High Flow N/C 2.00 10/28/21 14:00 87 13 136/92 (107) 100 Nasal Cannula 2.00 10/28/21 13:00 93 10 109/64 (79) 100 Nasal Cannula 2.00 10/28/21 12:37 87 10/28/21 12:08 100 Nasal Cannula 2.00 10/28/21 12:00 100 17 112/88 (96) 100 Nasal Cannula 2.00 10/28/21 11:54 36.6 I & O 10/29/21 07:00 Intake Total 2490 ml Output Total 1850 ml Balance 640 ml Height & Weight Height: '" Weight: lbs. oz. kg; 31.61 BMI Method: General Appearance: No Apparent Distress, Chronically ill, Obese HEENT: PERRL/EOMI, Pharynx Normal Neck: Normal Inspection, Supple Respiratory: No Respiratory Distress, Decreased Breath Sounds (diminished breath sounds bilaterally) Cardiovascular: No Murmur, Irregularly Irregular (Afib) Peripheral Pulses: 1+ Dorsalis Pedis (R), 1+ Left Dors-Pedis (L) Extremity: Normal Inspection, Pedal Edema (mild pitting LE bilaterally) Neurologic/Psychiatric: Alert, Oriented x3, Normal Mood/Affect, Motor Weakness Skin: Normal Color, Warm/Dry Results Lab Laboratory Tests 10/27/21 17:37 10/27/21 23:50 10/28/21 04:31 10/28/21 13:20 10/29/21 05:16 Assessment/Plan Assessment/Plan (Tele-ICU Physician , Progress Note ) Available chart/ vitals / labs / Images reviewed Video assessment done using teleICU camera, rest of exam as per RN Discussed with RN , EXAM PER RN Events overnight : Afebrile FiO2 - I/O = pos Drips: Pressors: , hemodynamically stable Consultants: Hospital course: A/P CHF - as per cards A fib rate controlled - off AC GIB - Hb 7.6 after 2 uPRBC - PPI bid IV - sx follows- ? PUD AECOPD - nebb, steroids SM 80 q 6 h - to decrease 10/29 to 40 q8h Leukocytosis - ? steroids induced - Vanco and merrem 10/27 for suspected RLL PNA Urinary retention folwy in place , urology consulted Lines : (Central Line Necessity Reviewed) Bal: + OG: Nutrition: Analgesia: Anxiety/ delirium VTE Prophylaxis: scd Stress Ulcer Prophylaxis: ppi Glycemic Control: Plans in collaboration with bedside consultants and IM MDs. Discussed with RN to reach out if any questions or concerns A total of 33 minutes of critical care time was devoted to this patient today, required to treat and/or prevent further deterioration of critical care condition ( as above) . ALEXUS GUTIERREZ MD Oct 29, 2021 11:38
[2021-10-29] MEDS: DOCUSATE SODIUM 100 MG (COLACE) CAP PO SCH ×2 (11:43→20:30)
[2021-10-29] MEDS: SENNOSIDES 8.6 MG (SENOKOT) TAB PO SCH ×2 (11:43→20:30)
[2021-10-29] MEDS: PANTOPRAZOLE 40 MG (PROTONIX) VIAL IV SCH ×2 (12:27→20:29)
[2021-10-29] MEDS: TAMSULOSIN 0.4 MG (FLOMAX) CAP PO SCH ×2 (12:28→20:29)
[2021-10-29] MEDS: LORATADINE (CLARITIN) 10 MG TAB PO SCH (12:28)
--- NOTE | 2021-10-29 12:57 | Progress Note - Hospitalist ---
AMBROSIO MASSEY A MED STUDENT 10/29/21 1257: Subjective HPI/CC On Admission Date Seen by Provider: Oct 29, 2021 Time Seen by Provider: 08:45 This is an 81 yo male who was transferred from [facility] yesterday for pneumonia and Afib with RVR. Pt has hx of HTN, COPD, hypothyroidism, Afib with RVR on anticoagulation and CKD. Pt recently underwent EGD and colonoscopy and was found to have reflux esophagitis, hiatal hernia and gastritis with small healed antral ulcer. Pt has been in inpatient rehab facility and [facility] bed to recover strength. Pt states yesterday he had trouble taking his oral medications and became SOA. Today he feels better than yesterday, but is still SOA, especially with exertion. Pt reports having diarrhea for the last day. Pt denies fever, chills, chest pain, palpitations, N/V, urinary frequency or burning. Subjective/Events-last exam Pt reports he feels better today and his SOA has improved. Pts only concerns are diarrhea and low back pain. Last BM was yesterday, he denies blood in stools. Review of Systems General: No Chills, No Fatigue HEENT: No Head Aches, No Visual Changes Pulmonary: Dyspnea; No Cough Cardiovascular: No: Chest Pain, Palpitations Gastrointestinal: Diarrhea; No: Nausea, Vomiting, Abdominal Pain Genitourinary: No Dysuria, No Frequency Neurological: No: Weakness, Numbness Focused Exam Lactate Level 10/27/21 17:50: Lactic Acid Level 2.47*H 10/27/21 23:50: Lactic Acid Level 2.98*H 10/28/21 04:31: Lactic Acid Level 1.71 Objective Exam Vital Signs Vital Signs Date Time Temp Pulse Resp B/P (MAP) Pulse Ox O2 Delivery O2 Flow Rate FiO2 10/29/21 10:48 95 Room Air 10/29/21 09:00 90 20 88/56 (67) 10/29/21 02:21 1.00 10/28/21 23:28 36.1 Capillary Refill : General Appearance: No Apparent Distress, WD/WN HEENT: PERRL/EOMI Respiratory: Chest Non Tender, Accessory Muscle Use, Decreased Breath Sounds (at bases bilaterally) Cardiovascular: No Murmur, Irregularly Irregular Gastrointestinal: Normal Bowel Sounds, Non Tender, Soft Extremity: Normal Capillary Refill, Non Tender, Pedal Edema (mild LE pitting edema) Neurologic/Psychiatric: Alert, Oriented x3, Normal Mood/Affect Skin: Normal Color, Warm/Dry Results/Procedures Lab Laboratory Tests 10/28/21 13:20 10/29/21 05:16 Patient resulted labs reviewed. Imaging: Reviewed Imaging Report Assessment/Plan Assessment and Plan Assess & Plan/Chief Complaint Bharat is an 81 yo male who is being treated for acute respiratory failure d/t blood loss anemia and pneumonia. Severe Sepsis d/t Pneumonia -CXR unchanged -BP stable -Continue Meropenem -Solumedrol -D/c Vancomycin as cultures were negative for MRSA Afib with RVR -Hold anticoagulation per cardiology Acute blood loss anemia -2 units packed RBCs given yesterday, H&H improving -General surgery consulted, appreciate their recommendations -Tagged RBC scan cancelled as pt does not show signs of active bleeding Acute respiratory failure with hypoxia -Currently not requiring oxygen COPD -Duoneb, Pulmicort Heart failure with preserved EF -Cardiology consulted, appreciate their recommendations Acute on chronic kidney disease -BUN and Cr improving Poor prognosis -Discussed prognosis again with pt and he now wishes to be Full Code Debility -PT/OT consulted Obesity GI prophylaxis: Protonix Clinical Quality Measures DVT/VTE Risk/Contraindication: Contraindications-Pharm: Other *list below* Other: KIEL BURGER MD 10/29/211916: Subjective HPI/CC On Admission Time Seen by Provider: 09:45 Assessment/Plan Assessment and Plan Assess & Plan/Chief Complaint Hemoglobin responded appropriately to transfusion. No evidence of ongoing blood loss. Continue to trend hemoglobin and watch for signs of blood loss. Continue Merrem, stop Vancomycin with no evidence of MRSA. Not requiring supplemental oxygen. Begin PT/OT, will likely require ongoing therapy via skilled placement v s home health. Diagnosis/Problems Diagnosis/Problems (1) Pneumonia Status: Acute (2) ABLA (acute blood loss anemia) Status: Acute (3) Acute respiratory failure with hypoxia Status: Resolved Resolution Date/Time: 10/29/21 @ 19:16 (4) Paroxysmal atrial fibrillation Status: Acute (5) COPD (chronic obstructive pulmonary disease) Status: Acute Qualifiers: Qualified Codes: J44.1 - Chronic obstructive pulmonary disease with (acute) exacerbation (6) CKD (chronic kidney disease) Status: Chronic Qualifiers: (7) Recurrent pneumonia Status: Acute (8) Chronic heart failure with preserved ejection fraction (HFpEF) Status: Chronic (9) Poor prognosis Status: Acute (10) Debility Status: Acute Supervisory-Addendum Brief Verification & Attestation Participated in pt care: history, MDM, physical Personally performed: exam, history, MDM, supervision of care Care discussed with: Medical Student Procedures: n/a Results interpretation: Verified all documentation A medical student performed and documented this service in my presence. I reviewed and verified all information documented by the medical student and made modifications to such information, when appropriate. I personally performed the physical exam and medical decision making. AMBROSIO MASSEY MED STUDENT Oct 29, 2021 12:57 KIEL ESCOBAR MD Oct 29, 2021 19:17
--- NOTE | 2021-10-29 13:35 | Physical Therapy Evaluation ---
PT Evaluation-General Medical Diagnosis Admission Date Oct 27, 2021 at 17:10 Medical Diagnosis: pneumonia, afib with RVR Onset Date: Nov 05, 2021 Therapy Diagnosis Therapy Diagnosis: impaired mobility, strength, endurance Precautions Precautions/Isolations: Fall Prevention, Standard Precautions, Pressure Ulcer Referral Physician: Elías Reason for Referral: Evaluation/Treatment Medical History Pertinent Medical History: Atrial Fib, HTN, Hypothroidism Additional Medical History Past Medical History Atrial Fibrillation, High Cholesterol, Hypertension Hypothyroidsim Reviewed History: Yes Social History Home: Single Level Current Living Status: Spouse Prior Prior Level of Function SCALE: Activities may be completed with or without assistive devices. 8-Saadonrofh-hyhspsi completes the activity by him/herself with no assistance from a helper. 5-Set-up or Clean-up Assistance-helper sets up or cleans up; patient completes activity. [place] assists only prior to or following the activity. 4-Supervision or Touching Assistance-helper provides verbal cues and/or touching/steadying and/or contact guard assistance as patient completes activity. Assistance may be provided throughout the activity or intermittently. 3-Partial/Moderate Assistance-helper does LESS THAN HALF the effort. [place] lifts, holds or supports trunk or limbs, but provides less than half the effort. 2-Substantial/Maximal Assistance-helper does MORE THAN HALF the effort. [place] lifts or holds trunk or limbs and provides more than half the effort. 8-Nrlvffqhq-vfmhdg does ALL the effort. Patient does none of the effort to complete the activity. Or, the assistance of 2 or more helpers is required for the patient to complete the activity. If activity was not attempted, code reason: 7-Patient Refused. 9-Not Applicable-not attempted and the patient did not perform the activity before the current illness, exacerbation or injury. 10-Not Attempted due to Environmental Limitations-(lack of equipment, weather restraints, etc.). 88-Not Attempted due to Medical Conditions or Safety Concerns. Bed Mobility: 6 Transfers (B,C,W/C): 6 Gait: 6 Stairs: 6 Indoor Mobility (Ambulation): Independent Stairs: Independent PT Evaluation-Current Subjective Patient in recliner pre tx, agrees to PT, has no complaints of pain but states he is upset about some care he got here and when he gets up set his O2 drops. His O2 drops as he gets upset telling this story and goes down to 83% but comes back up into the high 90's after rest. Pt/Family Goals to be independent at home Objective Patient Orientation: Person, Place, Situation Attachments: SCD's, Oxygen, Bal Catheter, IV ROM/Strength ROM Lower Extremities WNL Sensory Hearing: Functional Sensation Right Lower Extremit: Intact Sensation Left Lower Extremity: Intact Transfers Sit to Stand (QC): 4 Chair/Vlh-of-Ivbsl Xfer(QC): 4 Patient very shaky when standing, needs a couple of tries to stand from the recliner but can do it without assist Gait Does the Patient Walk?: Yes Mode of Locomotion: Walk Anticipated Mode of Locomotion: Walk Walk 10 feet (QC): 4 Distance: 30' Gait Assistive Device: FWW Comments/Gait Description slow but steady ambulation Balance Sitting Static: Normal Sitting Dynamic: Normal Standing Static: Good Standing Dynamic: Good Assessment/Needs Patient in recliner post tx with nurse call, phone, tray, all needs met. Patient has impaired mobility, strength, endurance. 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 Mcfp Goals PT Mcfp Goals Time Frame: Nov 05, 2021 Roll Left & Right (QC): 6 Sit to Lying (QC): 6 Lying-Sitting on Side/Bed(QC): 6 Sit to Stand (QC): 5 Chair/Dml-bu-Udnew Xfer(QC): 5 Walk 10 feet (QC): 5 Walk 50ft with 2 Turns (QC): 5 PT Plan Problem List Problem List: Activity Tolerance, Functional Strength, Safety, Balance, Gait, Transfer, Bed Mobility, ROM Treatment/Plan Treatment Plan: Continue Plan of Care Treatment Plan: Bed Mobility, Education, Functional Activity Tatiana, Functional Strength, Gait, Safety, Therapeutic Exercise, Transfers Treatment Duration: Nov 05, 2021 Frequency: 6 times per week Estimated Hrs Per Day: .25 hour per day Patient and/or Family Agrees t: Yes Safety Risks/Education Patient Education: Gait Training, Transfer Techniques, Correct Positioning, Safety Issues Teaching Recipient: Patient Teaching Methods: Demonstration, Discussion Response to Teaching: Reinforcement Needed Discharge Recommendations Plan Patient will perform bed mobility and transfer training, balance and endurance training, functional strengthening, gait training, and education, to improve functional mobility and independence at home. Therapy Discharge Recommendati: Home & Family, Post Acute PT Time/GCodes Time In: 1310 Time Out: 1325 Total Billed Treatment Time: 15 Total Billed Treatment 1 visit NESHA Barrett' RACHEL KAPOOR PT Oct 29, 2021 13:35
--- NOTE | 2021-10-29 13:37 | Occupational Therapy Eval ---
OT Evaluation-General/PLF Medical Diagnosis Admission Date Oct 27, 2021 at 17:10 Medical Diagnosis: pneumonia, AFib with RVR Onset Date: Oct 27, 2021 Therapy Diagnosis Therapy Diagnosis: impaired adls, balance, endurance, pulmonary function Precautions Precautions/Isolations: Fall Prevention, Standard Precautions, Pressure Ulcer Referral Physician: genoveva Mckinley Referral Reason: Evaluation/Treatment Medical History Pertinent Medical History: Atrial Fib, HTN, Hypothroidism Additional Medical History CKD Current History Arrived from [facility] after experiencing increased SOB. Pt reports living with his and son in a single story home. He states he was independent with ADLs and shared IADL responsibilities with his spouse. He did not use any AD prior to admission. Reviewed History: Yes Social History Home: Single Level Current Living Status: Spouse ADL-Prior Level of Function SCALE: Activities may be completed with or without assistive devices. 1-Fqrpwxfkcv-yewsaka completes the activity by him/herself with no assistance from a helper. 5-Set-up or Clean-up Assistance-helper sets up or cleans up; patient completes activity. [place] assists only prior to or following the activity. 4-Supervision or Touching Assistance-helper provides verbal cues and/or touching/steadying and/or contact guard assistance as patient completes activity. Assistance may be provided throughout the activity or intermittently. 3-Partial/Moderate Assistance-helper does LESS THAN HALF the effort. [place] l ifts, holds or supports trunk or limbs, but provides less than half the effort. 2-Substantial/Maximal Assistance-helper does MORE THAN HALF the effort. [place] lifts or holds trunk or limbs and provides more than half the effort. 1-Ejzlujdmv-jkfynh does ALL the effort. Patient does none of the effort to complete the activity. Or, the assistance of 2 or more helpers is required for t he patient to complete the activity. If activity was not attempted, code reason: 7-Patient Refused. 9-Not Applicable-not attempted and the patient did not perform the activity before the current illness, exacerbation or injury. 10-Not Attempted due to Environmental Limitations-(lack of equipment, weather restraints, etc.). 88-Not Attempted due to Medical Conditions or Safety Concerns. Self Care: Independent Functional Cognition: Independent DME/Equipment: Bath Chair, Grab Bars, Tall Toilet, Tub/Shower Drive Self: Yes OT Current Status Subjective Denies pain, reports frustration with recent events. Appearance Returned to sitting in recliner, all needs within reach. Mental Status/Objective Patient Orientation: Person, Place, Situation Attachments: Bal Catheter, IV, Oxygen, Telemetry Current Glasses/Contacts: Yes Hearing Aids: No ADL-Treatment Lower Body Dressing (QC): 2 On/Off Footwear (QC): 1 Toileting Hygiene (QC): 1 Pt sitting in chair at therapy arrival. When communicating story on reason for admission, pt becomes visibly upset. His desats into mid 70's and requires cues for PLB and relaxation. Sit<>stand: 3 attempts. Requires min a for initial lifting boost. Once standing, BLE's shaky. Able to ambulate short distance within room with CGA and use of walker. Pt fatigues easily and requests to return to sitting after minimal activity. SOA notable with exertion. Dependent to don/doff socks. It is to be noted that Pt was using sock aid and medical collections specialist during recent rehab stay. Education OT Patient Education: Correct positioning, Energy conservation, Purpose of tx/functional activities, Safety issues Teaching Recipient: Patient Teaching Methods: Discussion Response to Teaching: Verbalize Understanding, Reinforcement Needed OT Conference Concierge Goals Conference Concierge Goals Time Frame: Nov 16, 2021 Eating (QC): 6 Oral Hygiene (QC): 5 Toileting Hygiene (QC): 4 Shower/Bathe Self (QC): 4 Upper Body Dressing (QC): 4 Lower Body Dressing (QC): 4 On/Off Footwear (QC): 4 1=Demonstrate adherence to instructed precautions during ADL tasks. 2=Patient will verbalize/demonstrate understanding of assistive devices/modifications for ADL. 3=Patient will improve strength/tolerance for activity to enable patient to perform ADL's. OT Education/Plan Problem List/Assessment Assessment: Decreased Activ Tolerance, Decreased UE Strength, Edema, Impaired Funct Balance, Impaired I ADL's, Impaired Self-Care Skills, Restricted Funct UE ROM Discharge Recommendations Plan/Recommendations: Continue POC Therapy Discharge Recommendati: Post Acute OT Equpiment Recommendations-D/C: Vice President Quality Assurance, Sock Aide Treatment Plan/Plan of Care Treatment,Training & Education: Yes Patient would benefit from OT for education, treatment and training to promote independence in ADL's, mobility, safety and/or upper extremity function for ADL's. Plan of Care: ADL Retraining, Functional Mobility, Group Exercise/Act as Ind, UE Funct Exercise/Act Treatment Duration: Nov 16, 2021 Frequency: 3 times per week Estimated Hrs Per Day: .25 hour per day Agreement: Yes 3-5x/week Time/GCodes Start Time: 13:10 Stop Time: 13:25 Total Time Billed (hr/min): 15 Billed Treatment Time 1 visit Tamiko Mckinley OT Oct 29, 2021 13:37
[2021-10-29] MEDS ORDERED: FUROSEMIDE 40 MG/4 ML INJ (LASIX) IVP NR (18:45)
[2021-10-29] MEDS ORDERED: FUROSEMIDE 40 MG/4 ML INJ (LASIX) ONE (18:47)
[2021-10-29] MEDS: MONTELUKAST 10 MG (SINGULAIR) TAB PO SCH (20:30)
[2021-10-30] VITALS (15 sets, daily range): BP systolic 79–147; BP diastolic 56–128
[2021-10-30] MEDS: RT-ALBUTEROL/IPRATROPIUM 3 ML (DUONEB) VIAL INH SCH ×6 (02:27→23:10)
[2021-10-30] MEDS: MEROPENEM 500 MG/NS 100 ML IVPB IV SCH ×8 (05:25→23:54)
[2021-10-30] MEDS: LEVOTHYROXINE 112 MCG (LEVOTHROID) TAB PO SCH (05:25)
[2021-10-30] MEDS: SUCRALFATE 1 GM (CARAFATE) TAB PO SCH ×4 (05:25→20:07)
[2021-10-30] MEDS: methylPREDNISolone 40 MG/ML (Solu-MEDROL) VIAL IV SCH (05:25)
[2021-10-30 05:54] LABS: BASOPHILS % (AUTO) 0 % (0-10); EOSINOPHILS % (AUTO) 0 % (0-10); HEMATOCRIT 25 % (40-54); HEMOGLOBIN 8.5 g/dL (13.3-17.7); LYMPHOCYTES # (AUTO) 0.5 10^3/uL (1.0-4.0); LYMPHOCYTES % (AUTO) 2 % (12-44); MEAN CORPUSCULAR HEMOGLOBIN 32 pg (25-34); MEAN CORPUSCULAR HGB CONC 34 g/dL (32-36); MEAN CORPUSCULAR VOLUME 94 fL (80-99); MEAN PLATELET VOLUME 9.9 fL (9.0-12.2); MONOCYTES # (AUTO) 0.7 10^3/uL (0.0-1.0); MONOCYTES % (AUTO) 4 % (0-12); NEUTROPHILS # (AUTO) 17.5 10^3/uL (1.8-7.8); NEUTROPHILS % (AUTO) 91 % (42-75); PLATELET COUNT 226 10^3/uL (130-400); WHITE BLOOD COUNT 19.3 10^3/uL (4.3-11.0)
[2021-10-30 06:10] LABS: ALBUMIN 3.1 GM/DL (3.2-4.5); BILIRUBIN,TOTAL 0.7 MG/DL (0.1-1.0); CALCIUM 7.7 MG/DL (8.5-10.1); CREATININE SERUM 1.34 MG/DL (0.60-1.30); MAGNESIUM 2.3 MG/DL (1.6-2.4); PHOSPHORUS 1.6 MG/DL (2.3-4.7); POTASSIUM 3.2 MMOL/L (3.6-5.0); TOTAL PROTEIN 5.5 GM/DL (6.4-8.2)
[2021-10-30] MEDS: MAGNESIUM 1 GM/100 ML IVPB 100 ML IV SCH (06:41)
[2021-10-30] MEDS: KCL 20 MEQ TAB (K-DUR) PO SCH (06:41)
[2021-10-30] MEDS: POTASSIUM CL 10MEQ/50ML IVPB 50 ML IV SCH (06:41)
[2021-10-30] MEDS: inSUlin ASPART (NovoLOG) 1 UNIT/0.01 ML (CHARGE PER UNIT) SC SCH ×2 (06:42→11:23)
[2021-10-30] MEDS: RT-BUDESONIDE NEBS 0.5 MG/2ML (PULMICORT) AMP INH SCH ×2 (06:43→23:10)
--- NOTE | 2021-10-30 07:58 | Diagnostic Imaging Report ---
INDICATION: Dyspnea EXAMINATION: Chest 10/30/2021 COMPARISON: 10/29/2021 FINDINGS: There is an infiltrate in the right lower lung slightly more diffuse than on previous imaging with an adjacent effusion not excluded. The remaining lungs clear. No pneumothorax. Heart and pulmonary vasculature stable. Right central line unchanged. IMPRESSION: 1. Stable to slightly worsened right lower lobe infiltrate. Small right effusion suspected. Dictated by: Dictated on workstation # [id number]
[2021-10-30] MEDS: BUMETANIDE 1 MG (BUMEX) TAB PO SCH (08:09)
[2021-10-30] MEDS: TAMSULOSIN 0.4 MG (FLOMAX) CAP PO SCH ×2 (08:09→20:07)
[2021-10-30] MEDS: DOCUSATE SODIUM 100 MG (COLACE) CAP PO SCH ×2 (08:09→20:07)
[2021-10-30] MEDS: SENNOSIDES 8.6 MG (SENOKOT) TAB PO SCH ×2 (08:09→20:07)
[2021-10-30] MEDS: PANTOPRAZOLE 40 MG (PROTONIX) VIAL IV SCH ×2 (08:09→20:07)
[2021-10-30] MEDS: LORATADINE (CLARITIN) 10 MG TAB PO SCH (08:09)
[2021-10-30] MEDS ORDERED: predniSONE 20 MG TAB PO ONE (08:30)
[2021-10-30] MEDS ORDERED: POT PHOS/NA PHOS (K-PHOS NEUTRAL) PO ONE (08:30)
--- NOTE | 2021-10-30 10:06 | Tele-ICU Progress Note ---
Subjective Date Seen by a Provider: Oct 30, 2021 Time Seen by a Provider: 10:06 Sepsis Event Evaluation Height, Weight, BMI Height: '" Weight: lbs. oz. kg; 31.61 BMI Method: Focused Exam Lactate Level 10/27/21 17:50: Lactic Acid Level 2.47*H 10/27/21 23:50: Lactic Acid Level 2.98*H 10/28/21 04:31: Lactic Acid Level 1.71 Exam Exam Patient acknowledged, consented, and participated in this virtual visit which was conducted using real time audio/video Vital Signs Date Time Temp Pulse Resp B/P (MAP) Pulse Ox O2 Delivery O2 Flow Rate FiO2 10/30/21 10:00 101 26 98/87 (91) 93 Nasal Cannula 3.00 10/30/21 09:00 90 20 121/66 (84) 100 Nasal Cannula 3.00 10/30/21 08:25 100 Nasal Cannula 3.00 10/30/21 08:25 36.4 10/30/21 08:00 104 18 91/81 (84) 100 Nasal Cannula 3.00 10/30/21 07:00 103 10/30/21 07:00 93 18 104/69 (81) 98 Nasal Cannula 3.00 10/30/21 06:55 102 33 97 Nasal Cannula 3.00 10/30/21 06:44 95 High Flow N/C 7.00 10/30/21 06:05 98 26 98 Nasal Cannula 4.00 10/30/21 06:00 107 25 120/83 (95) 89 Nasal Cannula 3.00 10/30/21 05:00 105 18 142/126 (130) 95 Nasal Cannula 3.00 10/30/21 04:00 105 16 113/94 (100) 94 Nasal Cannula 3.00 10/30/21 04:00 36.4 10/30/21 04:00 97 Nasal Cannula 2.00 10/30/21 03:00 97 18 110/58 (75) 95 Nasal Cannula 3.00 10/30/21 02:27 97 High Flow N/C 3.00 10/30/21 02:00 80 26 115/64 (81) 98 Nasal Cannula 3.00 10/30/21 01:07 80 19 91 Nasal Cannula 3.00 10/30/21 01:00 98 10/30/21 01:00 84 16 112/64 (80) 83 Nasal Cannula 1.00 10/30/21 00:00 87 16 112/65 (81) 99 Nasal Cannula 1.00 10/30/21 00:00 97 Nasal Cannula 2.00 10/30/21 00:00 37.2 10/29/21 23:00 87 18 109/62 (78) 100 Nasal Cannula 1.00 10/29/21 22:33 100 High Flow N/C 1.00 10/29/21 22:28 100 High Flow N/C 1.00 10/29/21 22:15 82 19 103/63 (76) 93 Nasal Cannula 1.00 10/29/21 21:15 86 18 122/61 (81) 100 Nasal Cannula 1.00 10/29/21 20:00 97 Nasal Cannula 2.00 10/29/21 20:00 96 16 101/76 (84) 100 Nasal Cannula 1.00 10/29/21 19:30 36.4 10/29/21 19:15 89 20 107/57 (74) 98 Nasal Cannula 1.00 10/29/21 19:06 87 10/29/21 18:48 100 High Flow N/C 2.00 10/29/21 18:00 86 22 99/61 (74) 100 Room Air 10/29/21 17:00 82 24 106/56 (73) 94 Room Air 10/29/21 16:00 93 26 103/57 (72) 100 Room Air 10/29/21 15:45 36.5 10/29/21 15:44 97 Nasal Cannula 2.00 10/29/21 15:00 101 39 105/54 (71) 98 Room Air 10/29/21 14:30 95 High Flow N/C 2.00 10/29/21 14:00 87 13 123/105 (111) 100 Room Air 10/29/21 13:00 79 10/29/21 13:00 95 23 103/56 (72) 95 Room Air 10/29/21 12:00 97 Nasal Cannula 2.00 10/29/21 12:00 95 17 100/58 (72) 94 Room Air 10/29/21 11:00 105 25 112/68 (83) 95 Room Air 10/29/21 10:48 95 Room Air I & O 10/30/21 07:00 Intake Total 1750 ml Output Total 925 ml Balance 825 ml Height & Weight Height: '" Weight: lbs. oz. kg; 31.61 BMI Method: General Appearance: No Apparent Distress, WD/WN HEENT: PERRL/EOMI Neck: Normal Inspection, Supple Respiratory: Chest Non Tender, Accessory Muscle Use, Decreased Breath Sounds (at bases bilaterally) Cardiovascular: No Murmur, Irregularly Irregular Peripheral Pulses: 1+ Dorsalis Pedis (R), 1+ Left Dors-Pedis (L) Extremity: Normal Capillary Refill, Non Tender, Pedal Edema (mild LE pitting edema) Neurologic/Psychiatric: Alert, Oriented x3, Normal Mood/Affect Skin: Normal Color, Warm/Dry Results Lab Laboratory Tests 10/28/21 13:20 10/29/21 05:16 10/30/21 05:20 Assessment/Plan Assessment/Plan (Tele-ICU Physician , Progress Note ) Available chart/ vitals / labs / Images reviewed Video assessment done using teleICU camera, rest of exam as per RN Discussed with RN , EXAM PER RN Events overnight : Afebrile FiO2 - 3l I/O = pos Drips: Pressors: , hemodynamically stable A/P CHF - as per cards - bumex po as per cards A fib rate controlled - off AC GIB - Hb 7.6 after 2 uPRBC - PPI bid IV - sx follows- ? PUD AECOPD - nebb, steroids SM 80 q 6 h - to decrease 10/29 to 40 q8h- po 10/30 Leukocytosis - ? steroids induced - Vanco and merrem 10/27 for suspected RLL PNA Urinary retention corbett in place , urology consulted ? Lines : (Central Line Necessity Reviewed) Corbett: + OG: Nutrition: po Analgesia: Anxiety/ delirium VTE Prophylaxis: scd Stress Ulcer Prophylaxis: ppi Glycemic Control: Plans in collaboration with bedside consultants and IM MDs. Discussed with RN to reach out if any questions or concerns A total of 33 minutes of critical care time was devoted to this patient today, required to treat and/or prevent further deterioration of critical care condition ( as above) . ALEXUS GUTIERREZ MD Oct 30, 2021 10:06
--- NOTE | 2021-10-30 10:10 | Cardiology Progress Note ---
Progress Note-Cardiology Events since last exam Date Seen by Provider: Oct 30, 2021 Time Seen by Provider: 10:08 Events since last exam I am following him due to heart failure and paroxysmal atrial fibrillation. He continues to complain of orthopnea. He has ongoing shortness of breath with minimal exertion and sometimes with speaking but today feels as though this might be slightly improved. He continues to have mild ankle edema. He denies chest discomfort, palpitations, or syncope. He seems to think many of his difficulties are related to how the nurses have been positioning him in the bed and recliner chair. Certain portions of this document may have been dictated utilizing voice recognition technology. Inherent to this technology, typographical and grammatical errors may exist. As much as I am diligent to identify and correct these mistakes, some errors may remain in the document. Vitals Last set of Vitals Signs Vital Signs 10/30/21 10/30/21 10/30/21 08:25 12:00 12:40 Temp 36.4 Pulse 110 Resp 15 B/P (MAP) 79/66 (70) Pulse Ox 98 O2 Delivery Nasal Cannula O2 Flow Rate 3.00 Labs Labs Laboratory Tests 10/30/21 05:20 Exam Vital Signs Vital Signs Date Time Temp Pulse Resp B/P (MAP) Pulse Ox O2 Delivery O2 Flow Rate FiO2 10/30/21 12:40 110 10/30/21 12:00 98 Nasal Cannula 3.00 10/30/21 12:00 15 79/66 (70) 10/30/21 08:25 36.4 Physical Exam General: Alert. Mild respiratory distress while he is speaking, but unchanged. Eye: No xanthelasma. HENT: Normocephalic. Neck: Jugular venous pressure does not appear elevated. Respiratory: Lungs are clear to auscultation but with diffusely decreased breath sounds. Respirations are non-labored. Breath sounds are equal. Symmetrical chest wall expansion. Cardiovascular: Normal rate. Regular rhythm. No murmur. No gallop. Trace bila teral pretibial edema. Gastrointestinal: Soft. Normal bowel sounds. Skin: Warm. Dry. Neurologic: Alert and oriented to person, place, time. Cranial nerves 3-11 grossly intact. Psychiatric: Cooperative. Appropriate mood & affect. Labs Laboratory Tests Test 10/29/21 15:26 10/29/21 20:07 10/30/21 05:20 10/30/21 11:16 Range/Units Glucometer 167 H 161 H 117 H 70-110 MG/DL White Blood Count 19.3 H 4.3-11.0 10^3/uL Red Blood Count 2.65 L 4.30-5.52 10^6/uL Hemoglobin 8.5 L 13.3-17.7 g/dL Hematocrit 25 L 40-54 % Mean Corpuscular Volume 94 80-99 fL Mean Corpuscular Hemoglobin 32 25-34 pg Mean Corpuscular Hemoglobin Concent 34 32-36 g/dL Red Cell Distribution Width 20.1 H 10.0-14.5 % Platelet Count 226 130-400 10^3/uL Mean Platelet Volume 9.9 9.0-12.2 fL Immature Granulocyte % (Auto) 3 % Neutrophils (%) (Auto) 91 H 42-75 % Lymphocytes (%) (Auto) 2 L 12-44 % Monocytes (%) (Auto) 4 0-12 % Eosinophils (%) (Auto) 0 0-10 % Basophils (%) (Auto) 0 0-10 % Neutrophils # (Auto) 17.5 H 1.8-7.8 10^3/uL Lymphocytes # (Auto) 0.5 L 1.0-4.0 10^3/uL Monocytes # (Auto) 0.7 0.0-1.0 10^3/uL Eosinophils # (Auto) 0.0 0.0-0.3 10^3/uL Basophils # (Auto) 0.0 0.0-0.1 10^3/uL Immature Granulocyte # (Auto) 0.6 H 0.0-0.1 10^3/uL Sodium Level 131 L 135-145 MMOL/L Potassium Level 3.2 L 3.6-5.0 MMOL/L Chloride Level 95 L 98-107 MMOL/L Carbon Dioxide Level 20 L 21-32 MMOL/L Anion Gap 16 H 5-14 MMOL/L Blood Urea Nitrogen 37 H 7-18 MG/DL Creatinine 1.34 H 0.60-1.30 MG/DL Estimat Glomerular Filtration Rate 54 BUN/Creatinine Ratio 28 Glucose Level 128 H 70-105 MG/DL Calcium Level 7.7 L 8.5-10.1 MG/DL Corrected Calcium 8.4 L 8.5-10.1 MG/DL Phosphorus Level 1.6 L 2.3-4.7 MG/DL Magnesium Level 2.3 1.6-2.4 MG/DL Total Bilirubin 0.7 0.1-1.0 MG/DL Aspartate Amino Transf (AST/SGOT) 25 5-34 U/L Alanine Aminotransferase (ALT/SGPT) 36 0-55 U/L Alkaline Phosphatase 60 40-136 U/L Total Protein 5.5 L 6.4-8.2 GM/DL Albumin 3.1 L 3.2-4.5 GM/DL Diagnosis/Problems Diagnosis/Problems (1) Chronic heart failure with preserved ejection fraction (HFpEF) Status: Chronic Assessment & Plan: I suspect at this point, his heart failure is compensated. His BNP level is not significantly elevated and the previous pleural effusions have improved. I gave him 1 dose of intravenous bumetanide following a blood transfusion on 10/28. I have started him on bumetanide 1 mg once a day with first dose 10/30. This should hopefully help keep him euvolemic. (2) Paroxysmal atrial fibrillation Status: Acute Assessment & Plan: He had paroxysmal atrial fibrillation during his previous hospitalization. I did have him on rivaroxaban for stroke prophylaxis. This had to be stopped at 1 point due to the anemia which then recurred. I would suggest we hold anticoagulants for the time being. If general surgery and urology are okay with resuming rivaroxaban, then we can get him back on this medication for stroke prophylaxis. However, given that the atrial fibrillation was brief and may have been brought on by his acute, noncardiac illnesses, I do not think it is imperative that he be on oral anticoagulation. I previously planned to follow this as an outpatient. (3) Primary hypertension Status: Chronic Assessment & Plan: He was actually having some hypotension when he was first admitted to the intensive care unit during this hospitalization. We will continue to monitor his blood pressures and resume his normal antihypertensive medication if needed. However, his blood pressures seem to be remaining persistently low. (4) Mixed hyperlipidemia Status: Chronic Assessment & Plan: I have restarted his atorvastatin. (5) Acute on chronic respiratory failure with hypoxemia Status: Acute Assessment & Plan: I suspect the majority of his shortness of breath is related to underlying pulmonary disease and not heart failure. SHERRI CHO JR, MD Oct 30, 2021 10:10
--- NOTE | 2021-10-30 10:17 | Physical Therapy Daily Note ---
PT Daily Note-Current Subjective Patient presents sitting in his chair. Patient reports that he feels better sitting up and can breath better that way. He reports that there are times that his body is moving very fast and he is breathing heavy but he is not moving at all. Mental Status Patient Orientation: Person, Place, Time, Situation Attachments: Oxygen (HF NC 2.5L), Bal Catheter O2 Sat monitor Transfers SCALE: Activities may be completed with or without assistive devices. 1-Efkkhhlixn-zzchncw completes the activity by him/herself with no assistance from a helper. 5-Set-up or Clean-up Assistance-helper sets up or cleans up; patient completes activity. [place] assists only prior to or following the activity. 4-Supervision or Touching Assistance-helper provides verbal cues and/or touching/steadying and/or contact guard assistance as patient completes activity. Assistance may be provided throughout the activity or intermittently. 3-Partial/Moderate Assistance-helper does LESS THAN HALF the effort. [place] lifts, holds or supports trunk or limbs, but provides less than half the effort. 2-Substantial/Maximal Assistance-helper does MORE THAN HALF the effort. [place] lifts or holds trunk or limbs and provides more than half the effort. 5-Tmjequbje-iqcttm does ALL the effort. Patient does none of the effort to complete the activity. Or, the assistance of 2 or more helpers is required for the patient to complete the activity. If activity was not attempted, code reason: 7-Patient Refused. 9-Not Applicable-not attempted and the patient did not perform the activity before the current illness, exacerbation or injury. 10-Not Attempted due to Environmental Limitations-(lack of equipment, weather restraints, etc.). 88-Not Attempted due to Medical Conditions or Safety Concerns. Sit to Stand (QC): 4 Exercises Seated Therapy Exercises: Sit to stand Seated Reps: 2 Assessment Patient performed 2 sit to stand transfers. All other treatment was not advised based on O2 saturation levels with sit to stand exercise. Patient O2 levels dropped to 75% on 2.5L HF NC when performing sit to stand transfer but the patient recovered quickly once he sat back down. Patient did not report any feelings of dizziness while standing. PT Half-Way Goals Half-Way Goals PT Studio Set Up Worker Goals Time Frame: Nov 05, 2021 Roll Left & Right (QC): 6 Sit to Lying (QC): 6 Lying-Sitting on Side/Bed(QC): 6 Sit to Stand (QC): 5 Chair/Znf-yz-Fnipw Xfer(QC): 5 Walk 10 feet (QC): 5 Walk 50ft with 2 Turns (QC): 5 PT Plan Problem List Problem List: Activity Tolerance, Functional Strength, Safety, Balance, Gait, Transfer, Bed Mobility, ROM Treatment/Plan Treatment Plan: Continue Plan of Care Treatment Plan: Bed Mobility, Education, Functional Activity Tatiana, Functional Strength, Gait, Safety, Therapeutic Exercise, Transfers Treatment Duration: Nov 05, 2021 Frequency: 6 times per week Estimated Hrs Per Day: .25 hour per day Patient and/or Family Agrees t: Yes Time/GCodes Time In: 930 Time Out: 946 Total Billed Treatment Time: 16 Total Billed Treatment 1 Visit FA 16 min INOCENCIA WITT PT Oct 30, 2021 10:17
--- NOTE | 2021-10-30 11:20 | Occupational Ther Daily Note ---
OT Current Status-Daily Note Subjective Denies pain, only fatigue. Appearance Left sitting in chair, respiratory therapy and family in room. ADL-Treatment Therapy Code Descriptions/Definitions Functional [place] Measure: 0=Not Assessed/NA 4=Minimal Assistance 1=Total Assistance 5=Supervision or Setup 2=Maximal Assistance 6=Modified [place] 3=Moderate Assistance 7=Complete IndependenceSCALE: Activities may be completed with or without assistive devices. 3-Rcwlkqnuqf-zttldam completes the activity by him/herself with no assistance from a helper. 5-Set-up or Clean-up Assistance-helper sets up or cleans up; patient completes activity. [place] assists only prior to or following the activity. 4-Supervision or Touching Assistance-helper provides verbal cues and/or touching/steadying and/or contact guard assistance as patient completes ac tivity. Assistance may be provided throughout the activity or intermittently. 3-Partial/Moderate Assistance-helper does LESS THAN HALF the effort. [place] lifts, holds or supports trunk or limbs, but provides less than half the effort. 2-Substantial/Maximal Assistance-helper does MORE THAN HALF the effort. [place] lifts or holds trunk or limbs and provides more than half the effort. 7-Fivtbpfbe-ivzctn does ALL the effort. Patient does none of the effort to complete the activity. Or, the assistance of 2 or more helpers is required for the patient to complete the activity. If activity was not attempted, code reason: 7-Patient Refused. 9-Not Applicable-not attempted and the patient did not perform the activity before the current illness, exacerbation or injury. 10-Not Attempted due to Environmental Limitations-(lack of equipment, weather restraints, etc.). 88-Not Attempted due to Medical Conditions or Safety Concerns. Other Treatment Pt refuses all adls. Requires encouragement to complete UE exercises. Education on maintaining strength and endurance needed for adls and transfers. Shoulder exercises performed to 90 degrees. 12x1 in all planes. Cues for slow, controlled movement and correct technique. When anxiety and communication increases, pt desats into high 70's. Cues for PLB and relaxation. Pt reports at times he feels like he is "going, going, going, like down a race track but then everything stops and I can't catch my breath." Education OT Patient Education: Correct positioning, Energy conservation, Exercise program, Purpose of tx/functional activities Teaching Recipient: Patient, Family Teaching Methods: Demonstration, Discussion Response to Teaching: Verbalize Understanding, Reinforcement Needed OT Chcf Goals Chcf Goals Time Frame: Nov 16, 2021 Eating (QC): 6 Oral Hygiene (QC): 5 Toileting Hygiene (QC): 4 Shower/Bathe Self (QC): 4 Upper Body Dressing (QC): 4 Lower Body Dressing (QC): 4 On/Off Footwear (QC): 4 1=Demonstrate adherence to instructed precautions during ADL tasks. 2=Patient will verbalize/demonstrate understanding of assistive devices/m odifications for ADL. 3=Patient will improve strength/tolerance for activity to enable patient to perform ADL's. OT Education/Plan Problem List/Assessment Assessment: Decreased Activ Tolerance, Decreased UE Strength, Impaired Funct Balance, Impaired I ADL's, Impaired Self-Care Skills, Restricted Funct UE ROM Discharge Recommendations Plan/Recommendations: Continue POC Therapy Discharge Recommendati: Post Acute OT Treatment Plan/Plan of Care Treatment,Training & Education: Yes Patient would benefit from OT for education, treatment and training to promote independence in ADL's, mobility, safety and/or upper extremity function for ADL's. Plan of Care: ADL Retraining, Functional Mobility, Group Exercise/Act as Ind, UE Funct Exercise/Act Treatment Duration: Nov 16, 2021 Frequency: 3 times per week Estimated Hrs Per Day: .25 hour per day Agreement: Yes Rehab Potential: Fair Time/GCodes Start Time: 10:10 Stop Time: 10:22 Total Time Billed (hr/min): 12 Billed Treatment Time 1 visit EX Tamiko Fox OT Oct 30, 2021 11:20
--- NOTE | 2021-10-30 11:22 | Progress Note - Urology ---
Progress Note-Urology Progress Notes/Assess & Plan Progress/Assessment & Plan PATIENT HAS MICROHEMATURIA. PREVIOUS CYSTOSCOPY NEGATIVE EXCEPT FOR BPH. PLAN CT Final Diagnosis MICROHEMATURIA AND RETENTION ATILIO WILSON MD Oct 30, 2021 11:22
--- NOTE | 2021-10-30 12:50 | Progress Note - Hospitalist ---
AMBROSIO MASSEY A MED STUDENT 10/30/21 1250: Subjective HPI/CC On Admission Date Seen by Provider: Oct 30, 2021 Time Seen by Provider: 08:30 This is an 81 yo male who was transferred from [facility] yesterday for pneumonia and Afib with RVR. Pt has hx of HTN, COPD, hypothyroidism, Afib with RVR on anticoagulation and CKD. Pt recently underwent EGD and colonoscopy and was found to have reflux esophagitis, hiatal hernia and gastritis with small healed antral ulcer. Pt has been in inpatient rehab facility and [facility] bed to recover strength. Pt states yesterday he had trouble taking his oral medications and became SOA. Today he feels better than yesterday, but is still SOA, especially with exertion. Pt reports having diarrhea for the last day. Pt denies fever, chills, chest pain, palpitations, N/V, urinary frequency or burning. Subjective/Events-last exam Pt is up in the chair this morning, states he was feeling more SOA last night, so he was given oxygen. Pt reports his last BM was a couple days ago and was non-bloody. Pt denies fever, chills, N/V/D, chest pain, palpitations. Review of Systems General: No Chills, No Fatigue HEENT: No Head Aches, No Visual Changes Pulmonary: Dyspnea, Cough Cardiovascular: No: Chest Pain, Palpitations Gastrointestinal: No: Nausea, Vomiting Genitourinary: No Dysuria, No Frequency Neurological: No: Weakness Focused Exam Lactate Level 10/27/21 17:50: Lactic Acid Level 2.47*H 10/27/21 23:50: Lactic Acid Level 2.98*H 10/28/21 04:31: Lactic Acid Level 1.71 Objective Exam Vital Signs Vital Signs Date Time Temp Pulse Resp B/P (MAP) Pulse Ox O2 Delivery O2 Flow Rate FiO2 10/30/21 12:40 110 10/30/21 11:00 19 118/106 (110) 100 Nasal Cannula 3.00 10/30/21 08:25 36.4 Capillary Refill : General Appearance: No Apparent Distress, Obese HEENT: PERRL/EOMI Respiratory: Chest Non Tender, Decreased Breath Sounds (at bases bilaterally) Cardiovascular: No Murmur, Tachycardia Gastrointestinal: Normal Bowel Sounds, Non Tender, Soft Extremity: Normal Capillary Refill, Pedal Edema (2+ pitting edema) Neurologic/Psychiatric: Alert, Oriented x3, Normal Mood/Affect Skin: Normal Color, Warm/Dry Results/Procedures Lab Laboratory Tests 10/30/21 05:20 Patient resulted labs reviewed. Imaging: Reviewed Imaging Report Assessment/Plan Assessment and Plan Assess & Plan/Chief Complaint Bharat is an 81 yo male who is being treated for acute respiratory failure d/t blood loss anemia and pneumonia. Severe Sepsis d/t Pneumonia -CXR slightly worsened -Continue Meropenem -Solumedrol -Vancomycin stopped as cultures were negative for MRSA Afib with RVR -Hold anticoagulation per cardiology Acute blood loss anemia -Improving -General surgery consulted, appreciate their recommendations -Conservative management -Tagged RBC scan cancelled as pt does not show signs of active bleeding Acute respiratory failure with hypoxia -Will do home Oxygen study COPD -Duoneb, Pulmicort Heart failure with preserved EF -Cardiology consulted, appreciate their recommendations Acute on chronic kidney disease -BUN and Cr improving Poor prognosis -Discussed prognosis again with pt and he now wishes to be Full Code Debility -PT/OT consulted Obesity GI prophylaxis: Protonix Clinical Quality Measures DVT/VTE Risk/Contraindication: Contraindications-Pharm: Other *list below* Other: KIEL BURGER MD 10/30/21 1904: Subjective HPI/CC On Admission Time Seen by Provider: 10:25 Assessment/Plan Assessment and Plan Assess & Plan/Chief Complaint Continue antibiotics for pneumonia. Continue steroids for COPD exacerbation. No evidence of ongoing bleeding. Hemoglobin improved, stabilized. Consider restarting anticoagulation soon. Continue physical therapy. Diagnosis/Problems Diagnosis/Problems (1) Recurrent pneumonia Status: Acute (2) ABLA (acute blood loss anemia) Status: Acute (3) Acute respiratory failure with hypoxia Status: Resolved Resolution Date/Time: 10/29/21 @ 19:16 (4) COPD (chronic obstructive pulmonary disease) Status: Acute Qualifiers: Qualified Codes: J44.1 - Chronic obstructive pulmonary disease with (acute) exacerbation (5) Chronic heart failure with preserved ejection fraction (HFpEF) Status: Chronic (6) Paroxysmal atrial fibrillation Status: Acute (7) CKD (chronic kidney disease) Status: Chronic Qualifiers: (8) Debility Status: Acute Supervisory-Addendum Brief Verification & Attestation Participated in pt care: history, MDM, physical Personally performed: exam, history, MDM, supervision of care Care discussed with: Medical Student Procedures: n/a Results interpretation: Verified all documentation A medical student performed and documented this service in my presence. I reviewed and verified all information documented by the medical student and made modifications to such information, when appropriate. I personally performed the physical exam and medical decision making. AMBROSIO MASSEY MED STUDENT Oct 30, 2021 12:50 KIEL ESCOBAR MD Oct 30, 2021 19:04
--- NOTE | 2021-10-30 15:05 | Diagnostic Imaging Report ---
PROCEDURE: CT abdomen and pelvis without contrast. TECHNIQUE: Multiple contiguous axial images were obtained through the abdomen and pelvis without the use of intravenous contrast. Auto Exposure Controls were utilized during the CT exam to meet ALARA standards for radiation dose reduction. INDICATION: Hematuria. No prior studies are available for comparison. Imaging through the lung bases does show a moderate right and small left pleural effusion. There is significant consolidation in the right lower lobe with air bronchograms, suggestive of pneumonia. Small amount of pericardial fluid is present as well. There is a moderate-sized hiatal hernia. No discrete liver mass is identified. There appears to be calcification within the gallbladder wall suggestive of a porcelain gallbladder. No biliary ductal dilatation is seen. Pancreas and spleen are unremarkable. No adrenal mass is detected. Both kidneys contain some calcific densities. These may be vascular in nature. No ureteral calculi or hydronephrosis is detected. Aorta and renal arteries are heavily calcified. Iliac arteries are heavily calcified. There is a large amount of stool throughout the colon. In particular there appears be a large amount of stool in the right colon. There is moderate stool in the left colon. Some gaseous distention to the colon. Small bowel is not appreciably dilated. There is no free fluid or fluid collection identified. Bladder is decompressed by Bal catheter. Bony structures are nonacute. IMPRESSION: 1. Moderate right and small left pleural effusion. There is right basilar consolidation suggestive of pneumonia. 2. Moderate gaseous distention to the colon which also contains large amount of stool suggestive of constipation. 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 4. No other significant abnormalities detected. Dictated by: Dictated on workstation # [id number]
[2021-10-30] MEDS: MONTELUKAST 10 MG (SINGULAIR) TAB PO SCH (20:07)
[2021-10-30] MEDS: polyethylene glycoL POWDER 17 GM (MIRALAX) PACK PO SCH (20:09)
[2021-10-31] VITALS (8 sets, daily range): BP systolic 91–144; BP diastolic 54–100
[2021-10-31] MEDS: RT-ALBUTEROL/IPRATROPIUM 3 ML (DUONEB) VIAL INH SCH ×6 (02:34→21:36)
[2021-10-31 04:17] LABS: BASOPHILS % (AUTO) 0 % (0-10); EOSINOPHILS % (AUTO) 0 % (0-10); HEMATOCRIT 25 % (40-54); HEMOGLOBIN 8.3 g/dL (13.3-17.7); LYMPHOCYTES # (AUTO) 0.8 10^3/uL (1.0-4.0); LYMPHOCYTES % (AUTO) 6 % (12-44); MEAN CORPUSCULAR HEMOGLOBIN 31 pg (25-34); MEAN CORPUSCULAR HGB CONC 33 g/dL (32-36); MEAN CORPUSCULAR VOLUME 95 fL (80-99); MEAN PLATELET VOLUME 9.6 fL (9.0-12.2); MONOCYTES # (AUTO) 0.7 10^3/uL (0.0-1.0); MONOCYTES % (AUTO) 5 % (0-12); NEUTROPHILS # (AUTO) 12.1 10^3/uL (1.8-7.8); NEUTROPHILS % (AUTO) 89 % (42-75); PLATELET COUNT 188 10^3/uL (130-400); WHITE BLOOD COUNT 13.7 10^3/uL (4.3-11.0)
[2021-10-31 04:28] LABS: POTASSIUM 3.2 MMOL/L (3.6-5.0)
[2021-10-31 04:30] LABS: CALCIUM 7.2 MG/DL (8.5-10.1)
[2021-10-31 04:34] LABS: CREATININE SERUM 1.09 MG/DL (0.60-1.30); PHOSPHORUS 1.9 MG/DL (2.3-4.7)
[2021-10-31] MEDS: predniSONE 20 MG TAB PO SCH (06:13)
[2021-10-31] MEDS: SUCRALFATE 1 GM (CARAFATE) TAB PO SCH ×4 (06:13→19:50)
[2021-10-31] MEDS: LEVOTHYROXINE 112 MCG (LEVOTHROID) TAB PO SCH (06:13)
[2021-10-31] MEDS: MEROPENEM 500 MG/NS 100 ML IVPB IV SCH ×8 (06:13→23:20)
[2021-10-31] MEDS: RT-BUDESONIDE NEBS 0.5 MG/2ML (PULMICORT) AMP INH SCH ×2 (06:49→21:36)
--- NOTE | 2021-10-31 07:11 | Diagnostic Imaging Report ---
REASON FOR EXAMINATION: Dyspnea. Semiupright AP portable chest was obtained and compared to yesterday. FINDINGS: Low lung volumes with persistent but improved right lower lobe infiltrate. No effusions or pneumothorax. No cystic or cavitary change. Stable central line on the right. IMPRESSION: 1. Persistent but improved right lower lobe infiltrate on a background of low lung volumes. Dictated by: Dictated on workstation # [id number]
[2021-10-31] MEDS ORDERED: POT PHOS/NA PHOS (K-PHOS NEUTRAL) PO ONE (08:00)
[2021-10-31] MEDS: SENNOSIDES 8.6 MG (SENOKOT) TAB PO SCH ×2 (08:20→21:08)
[2021-10-31] MEDS: BUMETANIDE 1 MG (BUMEX) TAB PO SCH (08:20)
[2021-10-31] MEDS: LORATADINE (CLARITIN) 10 MG TAB PO SCH (08:20)
[2021-10-31] MEDS: polyethylene glycoL POWDER 17 GM (MIRALAX) PACK PO SCH ×2 (08:20→21:08)
[2021-10-31] MEDS: DOCUSATE SODIUM 100 MG (COLACE) CAP PO SCH ×2 (08:20→21:08)
[2021-10-31] MEDS: PANTOPRAZOLE 40 MG (PROTONIX) VIAL IV SCH ×2 (08:20→19:50)
[2021-10-31] MEDS: TAMSULOSIN 0.4 MG (FLOMAX) CAP PO SCH ×2 (08:20→19:50)
[2021-10-31] MEDS ORDERED: KCL 20 MEQ TAB (K-DUR) PO ONE ×2 (09:00→11:00)
--- NOTE | 2021-10-31 09:18 | Progress Note - Hospitalist ---
AMBROSIO MASSEY A MED STUDENT 10/31/21 0917: Subjective HPI/CC On Admission Date Seen by Provider: Oct 31, 2021 Time Seen by Provider: 08:50 This is an 81 yo male who was transferred from [facility] yesterday for pneumonia and Afib with RVR. Pt has hx of HTN, COPD, hypothyroidism, Afib with RVR on anticoagulation and CKD. Pt recently underwent EGD and colonoscopy and was found to have reflux esophagitis, hiatal hernia and gastritis with small healed antral ulcer. Pt has been in inpatient rehab facility and [facility] bed to recover strength. Pt states yesterday he had trouble taking his oral medications and became SOA. Today he feels better than yesterday, but is still SOA, especially with exertion. Pt reports having diarrhea for the last day. Pt denies fever, chills, chest pain, palpitations, N/V, urinary frequency or burning. Subjective/Events-last exam Pt asleep in bed this morning, easy to awaken. Pt reports some SOA and loose stool this morning. Pt denies fever, chills, cough, Chest pain, palpitations, N/V and abdominal pain. Review of Systems General: No Chills, No Fatigue HEENT: No Head Aches, No Visual Changes Pulmonary: Dyspnea; No Cough Cardiovascular: No: Chest Pain, Palpitations Gastrointestinal: Diarrhea (loose BM this morning); No: Nausea, Vomiting Genitourinary: No Dysuria, No Frequency Neurological: No: Weakness, Numbness Objective Exam Vital Signs Vital Signs Date Time Temp Pulse Resp B/P (MAP) Pulse Ox O2 Delivery O2 Flow Rate FiO2 10/31/21 10:44 97 Room Air 10/31/21 08:00 101 18 108/93 (98) 10/31/21 07:52 36.7 10/30/21 21:00 3.00 Capillary Refill : Less Than 3 Seconds General Appearance: Chronically ill, Obese HEENT: PERRL/EOMI Respiratory: Chest Non Tender, Decreased Breath Sounds (diffuse bilaterally), Wheezing (expiratory) Cardiovascular: No Murmur, Irregularly Irregular Gastrointestinal: Normal Bowel Sounds, Non Tender, Soft Extremity: Normal Capillary Refill, Pedal Edema (1+ pitting edema) Neurologic/Psychiatric: Alert, Oriented x3, Normal Mood/Affect Skin: Normal Color, Warm/Dry Results/Procedures Lab Laboratory Tests 10/31/21 04:06 Patient resulted labs reviewed. Imaging: Reviewed Imaging Report Assessment/Plan Assessment and Plan Assess & Plan/Chief Complaint Bharat is an 81 yo male who is being treated for recurrent pneumonia and acute respiratory failure with hypoxia d/t acute blood loss anemia. Recurrent pneumonia -CXR slightly improved -Continue Meropenem Acute blood loss anemia -Improving -General surgery consulted, appreciate their recommendations -Conservative management Acute respiratory failure with hypoxia -Oxygen study ordered COPD -Duoneb, Pulmicort Heart failure with preserved EF -Cardiology consulted, appreciate their recommendations Afib with RVR -Hold anticoagulation per cardiology Acute on chronic kidney disease -BUN and Cr improving Poor prognosis Debility -PT/OT consulted, poor progress per report -Will send referral for Inpatient rehab facility, if denied, will talk to family about halfway facility placement Obesity GI prophylaxis: Protonix Clinical Quality Measures DVT/VTE Risk/Contraindication: Contraindications-Pharm: Other *list below* Other: KIEL BURGER MD 10/31/21 2232: Subjective HPI/CC On Admission Time Seen by Provider: 09:30 Assessment/Plan Assessment and Plan Assess & Plan/Chief Complaint Remains stable. No evidence of ongoing bleeding. Oxygen stable on room air. Continue steroids and antibiotics. Likely discharge tomorrow, home with home health. Diagnosis/Problems Diagnosis/Problems (1) ABLA (acute blood loss anemia) Status: Acute (2) Melena Status: Acute (3) Recurrent pneumonia Status: Acute (4) COPD (chronic obstructive pulmonary disease) Status: Acute Qualifiers: Qualified Codes: J44.1 - Chronic obstructive pulmonary disease with (acute) exacerbation (5) Chronic heart failure with preserved ejection fraction (HFpEF) Status: Chronic (6) CKD (chronic kidney disease) Status: Chronic Qualifiers: (7) Paroxysmal atrial fibrillation Status: Acute (8) Debility Status: Acute Supervisory-Addendum Brief Verification & Attestation Participated in pt care: history, MDM, physical Personally performed: exam, history, MDM, supervision of care Care discussed with: Medical Student Procedures: n/a Results interpretation: Verified all documentation A medical student performed and documented this service in my presence. I reviewed and verified all information documented by the medical student and made modifications to such information, when appropriate. I personally performed the physical exam and medical decision making. AMBROSIO MASSEY A MED STUDENT Oct 31, 2021 09:17 KIEL ESCOBAR MD Oct 31, 2021 22:32
--- NOTE | 2021-10-31 09:45 | Cardiology Progress Note ---
Progress Note-Cardiology Events since last exam Date Seen by Provider: Oct 31, 2021 Time Seen by Provider: 09:44 Events since last exam I am following him due to heart failure and atrial arrhythmias. He remains in the intensive care unit. He is now off oxygen. He feels like his breathing has improved. He denies chest pain, palpitations, or syncope. He has persistent, mild ankle edema. Certain portions of this document may have been dictated utilizing voice recognition technology. Inherent to this technology, typographical and grammatical errors may exist. As much as I am diligent to identify and correct these mistakes, some errors may remain in the document. Vitals Last set of Vitals Signs Vital Signs 10/30/21 10/31/21 21:00 11:30 Temp 36.4 Pulse 101 Resp 20 B/P (MAP) 125/66 (85) Pulse Ox 96 O2 Delivery Room Air O2 Flow Rate 3.00 Labs Labs Laboratory Tests 10/31/21 04:06 Exam Vital Signs Vital Signs Date Time Temp Pulse Resp B/P (MAP) Pulse Ox O2 Delivery O2 Flow Rate FiO2 10/31/21 11:30 36.4 101 20 125/66 (85) 96 Room Air 10/30/21 21:00 3.00 Physical Exam General: Alert. Mild respiratory distress while he is speaking, but perhaps less so than previous days. Eye: No xanthelasma. HENT: Normocephalic. Neck: Jugular venous pressure does not appear elevated. Respiratory: Lungs are clear to auscultation but with diffusely decreased breath sounds. Respirations are non-labored. Breath sounds are equal. Symmetrical chest wall expansion. Cardiovascular: Normal rate. Regular rhythm. No murmur. No gallop. 1+ bilateral pretibial edema. Gastrointestinal: Soft. Normal bowel sounds. Skin: Warm. Dry. Neurologic: Alert and oriented to person, place, time. Cranial nerves 3-11 grossly intact. Psychiatric: Cooperative. Appropriate mood & affect. Labs Laboratory Tests Test 10/30/21 17:17 10/30/21 22:30 10/31/21 04:06 Range/Units Glucometer 130 H 121 H 70-110 MG/DL White Blood Count 13.7 H 4.3-11.0 10^3/uL Red Blood Count 2.66 L 4.30-5.52 10^6/uL Hemoglobin 8.3 L 13.3-17.7 g/dL Hematocrit 25 L 40-54 % Mean Corpuscular Volume 95 80-99 fL Mean Corpuscular Hemoglobin 31 25-34 pg Mean Corpuscular Hemoglobin Concent 33 32-36 g/dL Red Cell Distribution Width 20.9 H 10.0-14.5 % Platelet Count 188 130-400 10^3/uL Mean Platelet Volume 9.6 9.0-12.2 fL Immature Granulocyte % (Auto) 1 % Neutrophils (%) (Auto) 89 H 42-75 % Lymphocytes (%) (Auto) 6 L 12-44 % Monocytes (%) (Auto) 5 0-12 % Eosinophils (%) (Auto) 0 0-10 % Basophils (%) (Auto) 0 0-10 % Neutrophils # (Auto) 12.1 H 1.8-7.8 10^3/uL Lymphocytes # (Auto) 0.8 L 1.0-4.0 10^3/uL Monocytes # (Auto) 0.7 0.0-1.0 10^3/uL Eosinophils # (Auto) 0.0 0.0-0.3 10^3/uL Basophils # (Auto) 0.0 0.0-0.1 10^3/uL Immature Granulocyte # (Auto) 0.1 0.0-0.1 10^3/uL Sodium Level 132 L 135-145 MMOL/L Potassium Level 3.2 L 3.6-5.0 MMOL/L Chloride Level 96 L 98-107 MMOL/L Carbon Dioxide Level 23 21-32 MMOL/L Anion Gap 13 5-14 MMOL/L Blood Urea Nitrogen 32 H 7-18 MG/DL Creatinine 1.09 0.60-1.30 MG/DL Estimat Glomerular Filtration Rate 69 BUN/Creatinine Ratio 29 Glucose Level 105 70-105 MG/DL Calcium Level 7.2 L 8.5-10.1 MG/DL Phosphorus Level 1.9 L 2.3-4.7 MG/DL Diagnosis/Problems Diagnosis/Problems (1) Chronic heart failure with preserved ejection fraction (HFpEF) Status: Chronic Assessment & Plan: I suspect at this point, his heart failure is compensated. His BNP level was not significantly elevated at the time of admission and the previous pleural effusions have improved on his chest x-rays. I gave him 1 dose of intravenous bumetanide following a blood transfusion on 10/28. I have started him on bumetanide 1 mg once a day with first dose 10/30. This should hopefully help keep him euvolemic. He has an appointment to see me in the office in a few weeks. (2) Paroxysmal atrial fibrillation Status: Acute Assessment & Plan: He had paroxysmal atrial fibrillation during his previous hospitalization. I did have him on rivaroxaban for stroke prophylaxis. This had to be stopped at 1 point due to the anemia which then recurred. I would suggest we hold anticoagulants for the time being. If general surgery and urology are okay with resuming rivaroxaban, then we can get him back on this medication for stroke prophylaxis. However, given that the atrial fibrillation was brief and may have been brought on by his acute, noncardiac illnesses, I do not think it is imperative that he be on oral anticoagulation. I previously planned to follow this as an outpatient. (3) Primary hypertension Status: Chronic Assessment & Plan: He was actually having some hypotension when he was first admitted to the intensive care unit during this hospitalization. We will continue to monitor his blood pressures and resume his normal antihypertensive medication if needed. However, his blood pressures seem to be remaining persistently low. (4) Mixed hyperlipidemia Status: Chronic Assessment & Plan: I have restarted his atorvastatin. (5) Acute on chronic respiratory failure with hypoxemia Status: Acute Assessment & Plan: I suspect the majority of his shortness of breath is related to underlying pulmonary disease and not heart failure. SHERRI CHO JR, MD Oct 31, 2021 09:45
--- NOTE | 2021-10-31 10:56 | Physical Therapy Daily Note ---
PT Daily Note-Current Subjective Patient presents laying in bed and agrees to get up and move to the chair with therapy. Patient reports that he is not in any pain and is no longer on supplemental O2. Mental Status Patient Orientation: Person, Situation Attachments: Bal Catheter O2 saturation monitor Transfers SCALE: Activities may be completed with or without assistive devices. 5-Qkeblduazp-qnuhakj completes the activity by him/herself with no assistance from a helper. 5-Set-up or Clean-up Assistance-helper sets up or cleans up; patient completes activity. Rock assists only prior to or following the activity. 4-Supervision or Touching Assistance-helper provides verbal cues and/or touching/steadying and/or contact guard assistance as patient completes a ctivity. Assistance may be provided throughout the activity or intermittently. 3-Partial/Moderate Assistance-helper does LESS THAN HALF the effort. Rock lifts, holds or supports trunk or limbs, but provides less than half the effort. 2-Substantial/Maximal Assistance-helper does MORE THAN HALF the effort. Rock lifts or holds trunk or limbs and provides more than half the effort. 3-Hugtycgsj-lxbfue does ALL the effort. Patient does none of the effort to complete the activity. Or, the assistance of 2 or more helpers is required for the patient to complete the activity. If activity was not attempted, code reason: 7-Patient Refused. 9-Not Applicable-not attempted and the patient did not perform the activity before the current illness, exacerbation or injury. 10-Not Attempted due to Environmental Limitations-(lack of equipment, weather restraints, etc.). 88-Not Attempted due to Medical Conditions or Safety Concerns. Sit to Lying (QC): 4 Lying to Sitting/Side of Bed(Q: 4 Sit to Stand (QC): 4 Chair/Msr-ql-Zhvvy Xfer(QC): 4 Patient required CGA for all transfers and required assistance. O2 saturation was monitored during the therapy session and dropped to 75% while moving to sit EOB but came back to 99% with purse lip breathing. Patient reported that he felt slightly light headed when he transferred to the chair but O2 saturation was above 90% entire time after the transfer. Gait Training Does the Patient Walk?: Yes Distance: 3 steps Gait Assistive Device: FWW Patient ambulated 3 steps with FWW and CGA to move from EOB to the chair. Patient ambulated with minimal cues and reported that he did not feel SOA while ambulating. Exercises Seated Therapy Exercises: Ankle pumps Seated Reps: 5 Assessment Current Status: Poor Progress Patient sat EOB for 3 minutes before taking a few steps and sitting in the chair. Patient reported that after he transferred to the chair he was light headed for a minute but after some purse lip breathing it went away. Seated exercises were attempted but patient reported that he felt like he was going to throw up if he continued to perform exercises. Patient was in his chair post tx with tray table, nurse call light and all needs met. PT [place] Goals [place] Goals PT Group Home Goals Time Frame: Nov 05, 2021 Roll Left & Right (QC): 6 Sit to Lying (QC): 6 Lying-Sitting on Side/Bed(QC): 6 Sit to Stand (QC): 5 Chair/Lrx-uh-Umygu Xfer(QC): 5 Walk 10 feet (QC): 5 Walk 50ft with 2 Turns (QC): 5 PT Plan Problem List Problem List: Activity Tolerance, Functional Strength, Safety, Balance, Gait, Transfer, Bed Mobility, ROM Treatment/Plan Treatment Plan: Continue Plan of Care Treatment Plan: Bed Mobility, Education, Functional Activity Tatiana, Functional Strength, Gait, Safety, Therapeutic Exercise, Transfers Treatment Duration: Nov 05, 2021 Frequency: 6 times per week Estimated Hrs Per Day: .25 hour per day Patient and/or Family Agrees t: Yes Safety Risks/Education Patient Education: Reviewed Precautions, Correct Positioning, Safety Issues Teaching Recipient: Patient Teaching Methods: Discussion Response to Teaching: Reinforcement Needed Time/GCodes Time In: 1026 Time Out: 1036 Total Billed Treatment Time: 10 Total Billed Treatment 1 Visit FA 10 min RACHEL KAPOOR PT Oct 31, 2021 10:56
--- NOTE | 2021-10-31 13:26 | Occupational Ther Daily Note ---
OT Current Status-Daily Note Subjective Pt alert, sitting in recliner. Pt just moved to 4th floor. Mental Status/Objective Patient Orientation: Person, Place, Time, Situation ADL-Treatment Therapy Code Descriptions/Definitions Functional [place] Measure: 0=Not Assessed/NA 4=Minimal Assistance 1=Total Assistance 5=Supervision or Setup 2=Maximal Assistance 6=Modified [place] 3=Moderate Assistance 7=Complete IndependenceSCALE: Activities may be completed with or without assistive devices. 3-Uirtcjdjio-mzizmel completes the activity by him/herself with no assistance from a helper. 5-Set-up or Clean-up Assistance-helper sets up or cleans up; patient completes activity. [place] assists only prior to or following the activity. 4-Supervision or Touching Assistance-helper provides verbal cues and/or touching/steadying and/or contact guard assistance as patient completes activity. Assistance may be provided throughout the activity or intermittently. 3-Partial/Moderate Assistance-helper does LESS THAN HALF the effort. [place] lifts, holds or supports trunk or limbs, but provides less than half the effort. 2-Substantial/Maximal Assistance-helper does MORE THAN HALF the effort. [place] lifts or holds trunk or limbs and provides more than half the effort. 4-Srkoxkdeg-dwiryb does ALL the effort. Patient does none of the effort to complete the activity. Or, the assistance of 2 or more helpers is required for the patient to complete the activity. If activity was not attempted, code reason: 7-Patient Refused. 9-Not Applicable-not attempted and the patient did not perform the activity before the current illness, exacerbation or injury. 10-Not Attempted due to Environmental Limitations-(lack of equipment, weather restraints, etc.). 88-Not Attempted due to Medical Conditions or Safety Concerns. Other Treatment Pt declines all ADLs and exercises. Pt does agree to complete fine motor tasks for eating. Pt able to reach out and grasp items at chest height when sitting then stabilize items to bring to mouth. Pt fatigues fast and minimal tasks wear pt out then pt declines further treatment. After therapy, pt sitting in recliner with call light/phone in reach. All needs met in room. OT Nursing Home Goals Compliance Review Specialist Goals Time Frame: Nov 16, 2021 Eating (QC): 6 Oral Hygiene (QC): 5 Toileting Hygiene (QC): 4 Shower/Bathe Self (QC): 4 Upper Body Dressing (QC): 4 Lower Body Dressing (QC): 4 On/Off Footwear (QC): 4 1=Demonstrate adherence to instructed precautions during ADL tasks. 2=Patient will verbalize/demonstrate understanding of assistive devices/modifications for ADL. 3=Patient will improve strength/tolerance for activity to enable patient to perform ADL's. OT Education/Plan Problem List/Assessment Assessment: Decreased Activ Tolerance, Decreased UE Strength, Impaired Self- Care Skills Discharge Recommendations Plan/Recommendations: Continue POC Treatment Plan/Plan of Care Patient would benefit from OT for education, treatment and training to promote independence in ADL's, mobility, safety and/or upper extremity function for ADL's. Plan of Care: ADL Retraining, Functional Mobility, Group Exercise/Act as Ind, UE Funct Exercise/Act Treatment Duration: Nov 16, 2021 Frequency: 3 times per week Estimated Hrs Per Day: .25 hour per day Agreement: Yes Rehab Potential: Fair Time/GCodes Start Time: 11:30 Stop Time: 11:38 Total Time Billed (hr/min): 8 Billed Treatment Time 1 visit-FA 1 (8min) HERNANDEZ MEDELLIN Oct 31, 2021 13:26
[2021-10-31] MEDS ORDERED: BUME2TAB7 PO (14:28)
--- NOTE | 2021-10-31 14:37 | D/C HH Face to Face Order ---
D/C Face to Face Orders Instructions for Patient Via [facility], Patient Instructions/FollowUp: Take medications as prescribed. Follow up with your PCP. You are being set up with home health. Return with worsening shortness of breath, bleeding, or if you feel like you are getting worse. Physician to follow Patient: Mark Discharge Diet for Home: Low Sodium Diet Patient Data-Allergies,Ht & Wt Patient Allergies: Coded Allergies: Penicillins (Unverified Allergy, Mild, RASH, 12/23/06) Home Health Need/Face to Face Date of Face to Face: Oct 31, 2021 Clinical Findings: Generalized weakness and fatigue, Instability, Muscle weakness, Shortness of breath, Unsteady gait I have seen Pt gwps-sh-hhil: Yes Discharged To: Home Diagnosis/Conditions: ABLA Melena HFpEF CKD AFib COPD Obesity Problems/Diagnosis/Condition: (1) ABLA (acute blood loss anemia) (2) Melena (3) Chronic heart failure with preserved ejection fraction (HFpEF) (4) CKD (chronic kidney disease) (5) Paroxysmal atrial fibrillation (6) COPD (chronic obstructive pulmonary disease) (7) Obesity Patient is Homebound due to: Jaelyn fall risk due to instabilty, Muscle weakness, Shortness of breath/distress Homebound Status Due to the above stated illness, injury or surgical procedure (medical condition or diagnosis) and associated clinical findings, the patient is homebound because of his/her inability to leave home except with aid of a suppor tive device and/or person AND leaving the home requires a considerable and taxing effort or is medically contraindicated. Pt req the following assistanc: Aid of another person, [facility] Home Health Nursing Orders Home Health Services Order: Nursing Services, Money Manager-Evaluate & Treat, Physical Therapy-Evaluate & Treat Home Health Lab Orders Labs (specify type/freq): BMP and H/H 11/05 once Therapy Orders Therapy Orders: OT (must have SN or PT order), Physical Therapy Therapy Specific Orders: Eval assistive deivces, Teach enviro modifications/safety, Gait training, Increase strength/endurance Certify Stmt I certify that this patient is under my care and that I, a nurse practitioner or a physician; a logistics assistant working with me, had a face to face encounter that - meets the physician face to face encounter requirements with this patient as princess ed. KIEL ESCOBAR MD Oct 31, 2021 14:36
[2021-10-31] MEDS ORDERED: RIVA20TA2 PO (14:52)
[2021-10-31] MEDS ORDERED: FLUT12AE6 IH (14:52)
[2021-10-31] MEDS ORDERED: MONT-40 PO (15:00)
[2021-10-31] MEDS ORDERED: TMSL.4C PO (15:00)
[2021-10-31] MEDS ORDERED: ATOR40TA PO (15:00)
[2021-10-31] MEDS ORDERED: SUCR1TAB PO (15:00)
[2021-10-31] MEDS ORDERED: PANT40TA52 PO (15:00)
[2021-10-31] MEDS ORDERED: DILT180C82 PO (15:00)
[2021-10-31] MEDS ORDERED: BUME1TAB8 PO ×2 (15:09→15:12)
[2021-10-31] MEDS: MONTELUKAST 10 MG (SINGULAIR) TAB PO SCH (19:50)
[2021-11-01] MEDS: RT-ALBUTEROL/IPRATROPIUM 3 ML (DUONEB) VIAL INH SCH ×4 (02:36→14:05)
[2021-11-01 04:25] VITALS: BP 100/62
[2021-11-01] MEDS: predniSONE 20 MG TAB PO SCH (06:19)
[2021-11-01] MEDS: MEROPENEM 500 MG/NS 100 ML IVPB IV SCH ×4 (06:19→11:21)
[2021-11-01] MEDS: SUCRALFATE 1 GM (CARAFATE) TAB PO SCH ×2 (06:19→11:21)
[2021-11-01] MEDS: LEVOTHYROXINE 112 MCG (LEVOTHROID) TAB PO SCH (06:20)
[2021-11-01 06:39] LABS: BASOPHILS % (AUTO) 0 % (0-10); EOSINOPHILS # (AUTO) 0.1 10^3/uL (0.0-0.3); EOSINOPHILS % (AUTO) 1 % (0-10); HEMATOCRIT 26 % (40-54); HEMOGLOBIN 8.5 g/dL (13.3-17.7); LYMPHOCYTES # (AUTO) 0.9 10^3/uL (1.0-4.0); LYMPHOCYTES % (AUTO) 7 % (12-44); MEAN CORPUSCULAR HEMOGLOBIN 32 pg (25-34); MEAN CORPUSCULAR HGB CONC 32 g/dL (32-36); MEAN CORPUSCULAR VOLUME 98 fL (80-99); MEAN PLATELET VOLUME 9.6 fL (9.0-12.2); MONOCYTES # (AUTO) 0.5 10^3/uL (0.0-1.0); MONOCYTES % (AUTO) 4 % (0-12); NEUTROPHILS # (AUTO) 10.5 10^3/uL (1.8-7.8); NEUTROPHILS % (AUTO) 87 % (42-75); PLATELET COUNT 162 10^3/uL (130-400)
[2021-11-01] MEDS: RT-BUDESONIDE NEBS 0.5 MG/2ML (PULMICORT) AMP INH SCH (07:23)
[2021-11-01 08:08] VITALS: BP 120/57
[2021-11-01] MEDS: PANTOPRAZOLE 40 MG (PROTONIX) VIAL IV SCH (08:15)
[2021-11-01] MEDS: polyethylene glycoL POWDER 17 GM (MIRALAX) PACK PO SCH (08:15)
[2021-11-01] MEDS: TAMSULOSIN 0.4 MG (FLOMAX) CAP PO SCH (08:15)
[2021-11-01] MEDS: SENNOSIDES 8.6 MG (SENOKOT) TAB PO SCH (08:15)
[2021-11-01] MEDS: DOCUSATE SODIUM 100 MG (COLACE) CAP PO SCH (08:15)
[2021-11-01] MEDS: BUMETANIDE 1 MG (BUMEX) TAB PO SCH (08:15)
[2021-11-01] MEDS: LORATADINE (CLARITIN) 10 MG TAB PO SCH (08:15)
[2021-11-01 08:23] LABS: CALCIUM 7.2 MG/DL (8.5-10.1); CREATININE SERUM 1.07 MG/DL (0.60-1.30); POTASSIUM 3.9 MMOL/L (3.6-5.0)
--- NOTE | 2021-11-01 09:01 | Progress Note - Urology ---
Progress Note-Urology Progress Notes/Assess & Plan Progress/Assessment & Plan FAILED TOV. OK TO DISCHARGE AND SEE ME IN OFFICE NEXT WEEK FOR TRUSP TO PLAN POSSIBLE PROCEDURE ON PROSTATE IF MEDICALLY FEASIBLE PLAN FULLY EXPLAINED TO PATIENT Final Diagnosis RETENTION ATILIO WILSON MD Nov 01, 2021 09:01
--- NOTE | 2021-11-01 10:38 | Cardiology Progress Note ---
Progress Note-Cardiology Events since last exam Date Seen by Provider: Nov 01, 2021 Time Seen by Provider: 10:34 Events since last exam I am following him due to heart failure and atrial arrhythmias. He is now on the medical floor. He was sitting up in a chair getting a nebulizer treatment. He feels as though his breathing is improved but his peripheral edema has gotten worse. He wants to be discharged home as opposed to an inpatient rehab. He denies chest pain, palpitations, or syncope. Certain portions of this document may have been dictated utilizing voice recognition technology. Inherent to this technology, typographical and grammatical errors may exist. As much as I am diligent to identify and correct these mistakes, some errors may remain in the document. Vitals Last set of Vitals Signs Vital Signs 10/30/21 11/01/21 11/01/21 21:00 08:08 10:24 Temp 36.0 Pulse 92 Resp 20 B/P (MAP) 120/57 (78) Pulse Ox 94 O2 Delivery Room Air O2 Flow Rate 3.00 Labs Labs Laboratory Tests 11/01/21 06:25 Exam Vital Signs Vital Signs Date Time Temp Pulse Resp B/P (MAP) Pulse Ox O2 Delivery O2 Flow Rate FiO2 11/01/21 10:24 94 Room Air 11/01/21 08:08 36.0 92 20 120/57 (78) 10/30/21 21:00 3.00 Physical Exam General: Alert. No acute distress. He is obese. Eye: No xanthelasma. HENT: Normocephalic. Neck: Jugular venous pressure does not appear elevated. Respiratory: Lungs are clear to auscultation. Respirations are non-labored. Breath sounds are equal. Symmetrical chest wall expansion. Cardiovascular: Normal rate. Regular rhythm. Distant S1/S2. No murmur. No gallop. 2+ bilateral pretibial edema. Gastrointestinal: Soft. Normal bowel sounds. Skin: Warm. Dry. Neurologic: Alert and oriented to person, place, time. Cranial nerves 3-11 grossly intact. Psychiatric: Cooperative. Appropriate mood & affect. Labs Laboratory Tests Test 11/01/21 06:25 11/01/21 10:23 Range/Units White Blood Count 12.0 H 4.3-11.0 10^3/uL Red Blood Count 2.67 L 4.30-5.52 10^6/uL Hemoglobin 8.5 L 13.3-17.7 g/dL Hematocrit 26 L 40-54 % Mean Corpuscular Volume 98 80-99 fL Mean Corpuscular Hemoglobin 32 25-34 pg Mean Corpuscular Hemoglobin Concent 32 32-36 g/dL Red Cell Distribution Width 21.0 H 10.0-14.5 % Platelet Count 162 130-400 10^3/uL Mean Platelet Volume 9.6 9.0-12.2 fL Immature Granulocyte % (Auto) 1 % Neutrophils (%) (Auto) 87 H 42-75 % Lymphocytes (%) (Auto) 7 L 12-44 % Monocytes (%) (Auto) 4 0-12 % Eosinophils (%) (Auto) 1 0-10 % Basophils (%) (Auto) 0 0-10 % Neutrophils # (Auto) 10.5 H 1.8-7.8 10^3/uL Lymphocytes # (Auto) 0.9 L 1.0-4.0 10^3/uL Monocytes # (Auto) 0.5 0.0-1.0 10^3/uL Eosinophils # (Auto) 0.1 0.0-0.3 10^3/uL Basophils # (Auto) 0.0 0.0-0.1 10^3/uL Immature Granulocyte # (Auto) 0.1 0.0-0.1 10^3/uL Sodium Level 133 L 135-145 MMOL/L Potassium Level 3.9 3.6-5.0 MMOL/L Chloride Level 97 L 98-107 MMOL/L Carbon Dioxide Level 23 21-32 MMOL/L Anion Gap 13 5-14 MMOL/L Blood Urea Nitrogen 30 H 7-18 MG/DL Creatinine 1.07 0.60-1.30 MG/DL Estimat Glomerular Filtration Rate 70 BUN/Creatinine Ratio 28 Glucose Level 87 70-105 MG/DL Calcium Level 7.2 L 8.5-10.1 MG/DL Glucometer 93 70-110 MG/DL Diagnosis/Problems Diagnosis/Problems (1) Chronic heart failure with preserved ejection fraction (HFpEF) Status: Chronic Assessment & Plan: I suspect at this point, his heart failure is compensated although he does have peripheral edema some of which may be dependent edema. His BNP level was not significantly elevated at the time of admission and the previous pleural effusions have improved on his chest x-rays. I gave him 1 dose of intravenous bumetanide following a blood transfusion on 10/28. I have started him on oral bumetanide 1 mg once a day with first dose 10/30. This should hopefully help keep him euvolemic. He has an appointment to see me in the office in a few weeks. I encouraged him to keep his feet up when he is sitting in a chair. Otherwise, if he keeps his feet down, his peripheral edema will be difficult to treat and keep under control. (2) Paroxysmal atrial fibrillation Status: Acute Assessment & Plan: He had paroxysmal atrial fibrillation during his previous hospitalization. I did have him on rivaroxaban for stroke prophylaxis. This had to be stopped at 1 point due to the anemia which then recurred. I would suggest we hold anticoagulants for the time being. If general surgery and urology are okay with resuming rivaroxaban, then we can get him back on this medication for stroke prophylaxis. However, given that the atrial fibrillation was brief and may have been brought on by his acute, noncardiac illnesses, I do not think it is imperative that he be on oral anticoagulation. I will follow up on this as an outpatient. (3) Primary hypertension Status: Chronic Assessment & Plan: He was actually having some hypotension when he was first admitted to the intensive care unit during this hospitalization. We will continue to monitor his blood pressures and resume his normal antihypertensive m edication if needed. However, his blood pressures seem to be remaining persistently low on no antihypertensive medication. If he does need medication for the hypertension, I would avoid amlodipine as this will likely make his peripheral edema worse. (4) Mixed hyperlipidemia Status: Chronic Assessment & Plan: Continue atorvastatin. (5) Acute on chronic respiratory failure with hypoxemia Status: Acute Assessment & Plan: I suspect the majority of his shortness of breath is primarily related to underlying pulmonary disease and not heart failure. SHERRI CHO JR, MD Nov 01, 2021 10:38
--- NOTE | 2021-11-01 10:52 | Occupational Ther Daily Note ---
OT Current Status-Daily Note Subjective Pt in recliner. Pt's daughter in room. Pt agreeable to OT tx. Mental Status/Objective Patient Orientation: Person, Place, Time, Situation ADL-Treatment Therapy Code Descriptions/Definitions Functional [place] Measure: 0=Not Assessed/NA 4=Minimal Assistance 1=Total Assistance 5=Supervision or Setup 2=Maximal Assistance 6=Modified [place] 3=Moderate Assistance 7=Complete IndependenceSCALE: Activities may be completed with or without assistive devices. 0-Hmpjqnsldv-jhpyima completes the activity by him/herself with no assistance from a helper. 5-Set-up or Clean-up Assistance-helper sets up or cleans up; patient completes activity. [place] assists only prior to or following the activity. 4-Supervision or Touching Assistance-helper provides verbal cues and/or touching/steadying and/or contact guard assistance as patient completes activity. Assistance may be provided throughout the activity or intermittently. 3-Partial/Moderate Assistance-helper does LESS THAN HALF the effort. [place] lifts, holds or supports trunk or limbs, but provides less than half the effort. 2-Substantial/Maximal Assistance-helper does MORE THAN HALF the effort. [place] lifts or holds trunk or limbs and provides more than half the effort. 7-Iegkqfqxz-axbfws does ALL the effort. Patient does none of the effort to complete the activity. Or, the assistance of 2 or more helpers is required for the patient to complete the activity. If activity was not attempted, code reason: 7-Patient Refused. 9-Not Applicable-not attempted and the patient did not perform the activity before the current illness, exacerbation or injury. 10-Not Attempted due to Environmental Limitations-(lack of equipment, weather restraints, etc.). 88-Not Attempted due to Medical Conditions or Safety Concerns. Other Treatment Pt in recliner. Pt completed x10 reps of the following BUE exercises: shoulder flexion and shoulder abduction, rest breaks needed due to SOB. Pt in recliner, call light in reach and all needs met. OT instructed pt to continue exercises throughout the day, increasing reps as tolerated. He verbalized understanding. Education OT Patient Education: Correct positioning, Energy conservation, Exercise program, Progress toward Goal/Update tx plan, Purpose of tx/functional activi ties Teaching Recipient: Patient, Family Teaching Methods: Demonstration, Discussion Response to Teaching: Verbalize Understanding, Return Demonstration OT Inspector Exhaust Emissions Goals Custodial Goals Time Frame: Nov 16, 2021 Eating (QC): 6 Oral Hygiene (QC): 5 Toileting Hygiene (QC): 4 Shower/Bathe Self (QC): 4 Upper Body Dressing (QC): 4 Lower Body Dressing (QC): 4 On/Off Footwear (QC): 4 1=Demonstrate adherence to instructed precautions during ADL tasks. 2=Patient will verbalize/demonstrate understanding of assistive devices/modifications for ADL. 3=Patient will improve strength/tolerance for activity to enable patient to perform ADL's. OT Education/Plan Problem List/Assessment Assessment: Decreased Activ Tolerance, Decreased UE Strength, Impaired Funct Balance, Impaired I ADL's, Impaired Self-Care Skills Discharge Recommendations Plan/Recommendations: Continue POC Treatment Plan/Plan of Care Patient would benefit from OT for education, treatment and training to promote independence in ADL's, mobility, safety and/or upper extremity function for ADL's. Plan of Care: ADL Retraining, Functional Mobility, Group Exercise/Act as Ind, UE Funct Exercise/Act Treatment Duration: Nov 16, 2021 Frequency: 3 times per week Estimated Hrs Per Day: .25 hour per day Agreement: Yes Rehab Potential: Fair Time/GCodes Start Time: 10:40 Stop Time: 10:48 Total Time Billed (hr/min): 8 Billed Treatment Time 1, EX (8) SHEREEN DENSON OT Nov 01, 2021 10:52
--- NOTE | 2021-11-01 11:30 | Physical Therapy Daily Note ---
PT Daily Note-Current Subjective Patient presented sitting up in his chair and agreed to participate in therapy. Patient reported that he is ready to go home once the doctor sees him. Mental Status Patient Orientation: Person, Place, Time, Situation Attachments: Oxygen, Bal Catheter Patient was placed on 2L NC of O2 during therapy session. PT assessed O2 saturation levels and required supplemental oxygen with activity. Transfers SCALE: Activities may be completed with or without assistive devices. 7-Cqxkqonjpi-aehsned completes the activity by him/herself with no assistance from a helper. 5-Set-up or Clean-up Assistance-helper sets up or cleans up; patient completes activity. [place] assists only prior to or following the activity. 4-Supervision or Touching Assistance-helper provides verbal cues and/or touching/steadying and/or contact guard assistance as patient completes activity . Assistance may be provided throughout the activity or intermittently. 3-Partial/Moderate Assistance-helper does LESS THAN HALF the effort. [place] lifts, holds or supports trunk or limbs, but provides less than half the effort. 2-Substantial/Maximal Assistance-helper does MORE THAN HALF the effort. [place] lifts or holds trunk or limbs and provides more than half the effort. 7-Kvrcurcgt-gktryo does ALL the effort. Patient does none of the effort to complete the activity. Or, the assistance of 2 or more helpers is required for the patient to complete the activity. If activity was not attempted, code reason: 7-Patient Refused. 9-Not Applicable-not attempted and the patient did not perform the activity before the current illness, exacerbation or injury. 10-Not Attempted due to Environmental Limitations-(lack of equipment, weather restraints, etc.). 88-Not Attempted due to Medical Conditions or Safety Concerns. Sit to Stand (QC): 4 (CGA) Gait Training Does the Patient Walk?: No and Walking Goal IS indicated Gait Assistive Device: FWW Treatments Standing endurance Assessment Patient is requesting to discharge to home. PT performed O2 saturation assessment with activity. Patient O2 saturation at rest RA was 98% but with standing patient dropped to 83%. Patient was put on 2L NC and O2 saturation came back to 96% quickly. RT was notified of this and Dr. Mckinley was in the patient room while this was occurring. Patient stood with FWW and CGA for about 7 minutes before reporting he was fatigued and needed to sit. Ambulation was not attempted due to patient fatigue while standing. PT Histology Technologist Goals Histology Technologist Goals PT Jail Goals Time Frame: Nov 05, 2021 Roll Left & Right (QC): 6 Sit to Lying (QC): 6 Lying-Sitting on Side/Bed(QC): 6 Sit to Stand (QC): 5 Chair/Bwm-wu-Iidfl Xfer(QC): 5 Walk 10 feet (QC): 5 Walk 50ft with 2 Turns (QC): 5 PT Plan Problem List Problem List: Activity Tolerance, Functional Strength, Safety, Balance, Gait, Transfer, Bed Mobility, ROM Treatment/Plan Treatment Plan: Continue Plan of Care Treatment Plan: Bed Mobility, Education, Functional Activity Tatiana, Functional Strength, Gait, Safety, Therapeutic Exercise, Transfers Treatment Duration: Nov 05, 2021 Frequency: 6 times per week Estimated Hrs Per Day: .25 hour per day Patient and/or Family Agrees t: Yes Time/GCodes Time In: 1058 Time Out: 1113 Total Billed Treatment Time: 15 Total Billed Treatment 1 Visit FA 15 min INOCENCIA WITT PT Nov 01, 2021 11:30
[2021-11-01 11:31] VITALS: BP 106/57
[2021-11-01] MEDS ORDERED: PRED10TA22 PO (12:53)
--- NOTE | 2021-11-01 12:59 | Discharge Summary ---
Diagnosis/Chief Complaint Date of Admission Oct 27, 2021 at 17:10 Date of Discharge Discharge Date: Nov 01, 2021 Admission Diagnosis Recurrent pneumonia and acute blood loss anemia Primary Care Molly Flores MD Discharge Diagnosis Recurrent pneumonia and acute respiratory failure likely secondary to acute blood loss anemia. (1) Chronic heart failure with preserved ejection fraction (HFpEF) Status: Chronic Assessment & Plan: F/u with cardiology Lasix upon d/c Elevate feet above heart throughout the day (2) Paroxysmal atrial fibrillation Status: Acute Assessment & Plan: F/u with cardiology in regards to restarting anticoagulation (3) Primary hypertension Status: Chronic Assessment & Plan: Hold home blood pressure medications as pt was hypotensive/normotensive throughout hospital course. F/u with PCP (4) Mixed hyperlipidemia Status: Chronic Assessment & Plan: Continue atorvastatin. (5) Acute on chronic respiratory failure with hypoxemia Status: Acute Assessment & Plan: Qualified for 2LNC with exertion, but no oxygen needed at rest. With hx of COPD, will d/c with prednisone taper (6) ABLA (acute blood loss anemia) Status: Acute Assessment & Plan: Stablized, f/u with PCP for monitoring Protonix for hx of gastric ulcer (7) Debility Status: Acute Assessment & Plan: Home health care Work on regaining strength Pt refused placement in Custodial Facility (8) COPD (chronic obstructive pulmonary disease) Status: Chronic Assessment & Plan: Prednisone taper Continue home meds as previously prescribed. (9) Pneumonia Status: Resolved Assessment & Plan: Prednisone taper (10) Urinary retention Status: Chronic Assessment & Plan: Will go home with Corbett catheter F/u with Dr. Izaguirre Discharge Summary Discharge Physical Exam Allergies: Coded Allergies: Penicillins (Unverified Allergy, Mild, RASH, 12/23/06) Vitals & I&Os Vital Signs Date Time Temp Pulse Resp B/P (MAP) Pulse Ox O2 Delivery O2 Flow Rate FiO2 11/01/21 11:31 36.4 86 22 106/57 (73) 98 Room Air 10/30/21 21:00 3.00 General Appearance: No Apparent Distress, Obese HEENT: PERRL/EOMI Respiratory: Chest Non Tender, Accessory Muscle Use, Decreased Breath Sounds, Other (pursed lip breathing at rest and on exertion) Cardiovascular: Regular Rate, Rhythm, No Murmur Gastrointestinal: Normal Bowel Sounds, Non Tender, Soft Extremity: Normal Capillary Refill, Pedal Edema (2+ pitting bilaterally) Skin: Normal Color, Warm/Dry Neurologic/Psychiatric: Alert, Oriented x3, Normal Mood/Affect Hospital Course 81 yo male who was admitted from [facility] for recurrent pneumonia and Afib with RVR. Pt has hx of HTN, COPD, hypothyroidism, paroxysmal Afib on anticoagulation and CKD. Pt was found to be anemic and required two blood transfusions to stabilize H&H. Pt was started on Protonix for hx of gastric ulcer, which will be continued on d/c. Pt was also started on prednisone for COPD exacerbation, which will be tapered upon d/c. Urology was consulted d/t pt's hx of urinary retention. Corbett was removed and pt was unable to urinate, so it was placed again. Pt will be d/c with a corbett. Oxygen study showed no O2 needed at rest and 2L NC with exertion. Pt was also started on lasix and will be continued on these upon d/c. Pt wished to be sent home with home health as opposed to placement in a custodial facility. Discussed at length with family and pt that if he does not do well at home, there is a 30 day window for skilled facility placement and this can be discussed with PCP. Pt and family voiced understanding. Labs (last 24 hrs) Laboratory Tests 11/01/21 06:25: White Blood Count 12.0H, Red Blood Count 2.67L, Hemoglobin 8.5L, Hematocrit 26L, Mean Corpuscular Volume 98, Mean Corpuscular Hemoglobin 32, Mean Corpuscular Hemoglobin Concent 32, Red Cell Distribution Width 21.0H, Platelet Count 162, Me an Platelet Volume 9.6, Immature Granulocyte % (Auto) 1, Neutrophils (%) (Auto) 87H, Lymphocytes (%) (Auto) 7L, Monocytes (%) (Auto) 4, Eosinophils (%) (Auto) 1, Basophils (%) (Auto) 0, Neutrophils # (Auto) 10.5H, Lymphocytes # (Auto) 0.9L , Monocytes # (Auto) 0.5, Eosinophils # (Auto) 0.1, Basophils # (Auto) 0.0, Immature Granulocyte # (Auto) 0.1, Sodium Level 133L, Potassium Level 3.9, Chloride Level 97L, Carbon Dioxide Level 23, Anion Gap 13, Blood Urea Nitrogen 30H, Creatinine 1.07, Estimat Glomerular Filtration Rate 70, BUN/Creatinine Ratio 28, Glucose Level 87, Calcium Level 7.2L 11/01/21 10:23: Glucometer 93 Microbiology 10/27/21 Blood Culture - Preliminary, Resulted No growth 10/27/21 MRSA Screen - Final, Complete MRSA not isolated Patient resulted labs reviewed. Pending Labs Laboratory Tests 11/01/21 06:25: White Blood Count 12.0, Red Blood Count 2.67, Hemoglobin 8.5, Hematocrit 26, Mean Corpuscular Volume 98, Mean Corpuscular Hemoglobin 32, Mean Corpuscular Hemoglobin Concent 32, Red Cell Distribution Width 21.0, Platelet Count 162, Mean Platelet Volume 9.6, Immature Granulocyte % (Auto) 1, Neutrophils (%) (Auto) 87, Lymphocytes (%) (Auto) 7, Monocytes (%) (Auto) 4, Eosinophils (%) (Auto) 1, Basophils (%) (Auto) 0, Neutrophils # (Auto) 10.5, Lymphocytes # (Auto) 0.9, Monocytes # (Auto) 0.5, Eosinophils # (Auto) 0.1, Basophils # (Auto) 0.0, Immature Granulocyte # (Auto) 0.1, Sodium Level 133, Potassium Level 3.9, Chloride Level 97, Carbon Dioxide Level 23, Anion Gap 13, Blood Urea Nitrogen 30, Creatinine 1.07, Estimat Glomerular Filtration Rate 70, BUN/Creatinine Ratio 28, Glucose Level 87, Calcium Level 7.2 11/01/21 10:23: Glucometer 93 Imaging: Reviewed Imaging Report Discharge Home Medications: Active Scripts Active Prednisone 10 Mg Tab.ds.pk 10 Mg PO DAILY Take 6 tabs(60mg)daily,decrease by 1 tab(10mg)every other day. Bumetanide 1 Mg Tablet 1 Mg PO DAILY 30 Days Lipitor (Atorvastatin Calcium) 40 Mg Tablet 40 Mg PO HS 30 Days Pantoprazole Sodium 40 Mg Tablet.dr 40 Mg PO BID 30 Days Sucralfate 1 Gm Tablet 1 Gm PO ACHS 30 Days Montelukast Sodium 10 Mg Tablet 10 Mg PO HS 30 Days Flomax (Tamsulosin HCl) 0.4 Mg Cap 0.4 Mg PO BID 30 Days Diltiazem ER (Diltiazem HCl) 180 Mg Capsule.er 180 Mg PO DAILY 30 Days Advair Hfa 230-21 Mcg Inhaler (Fluticasone/Salmeterol) 12 Gm Hfa.aer.ad 2 Puff IH BID 30 Days PLEASE USE 340B SAVINGS PLAN FOR BRAND Xarelto Tablet (Rivaroxaban) 20 Mg Tablet 20 Mg PO DAILY@1700 30 Days USE 340B [employer]AVINGS PLAN Levothyroxine Sodium 112 Mcg Tablet 112 Mcg PO DAILY 30 Days Reported Prednisone 5 Mg Tablet 5 Mg PO DAILY Calmoseptine Ointment (Menthol/Lanolin/Calamine/Znox) 71 Gm Oint 1 Applic TP BID Instructions to patient/family Please see electronic discharge instructions given to patient. Clinical Quality Measures DVT/VTE Risk/Contraindication: Contraindications-Pharm: Other *list below* Other: GIB Problem Qualifiers (1) COPD (chronic obstructive pulmonary disease): COPD type: COPD with acute exacerbation Qualified Codes: J44.1 - Chronic o bstructive pulmonary disease with (acute) exacerbation AMBROSIO MASSEY MED STUDENT Nov 01, 2021 12:59
--- NOTE | 2021-11-02 08:55 | Physician Query Clarification ---
PQ-Present on Admission Admission/Discharge Admission Date: Oct 27, 2021 at 17:10 Discharge Date: Nov 01, 2021 at 16:15 Dr. Escobar, Question: Severe sepsis was documented in 10/29 PN by Mali Davila, student. Can you specify if this condition was present on admission? Please document a response in Progress Note or Discharge Summary. 1. Yes - Condition was present at the time of inpatient admission. 2. No - Condition was not present at the time of inpatient admission and it developed during the inpatient stay. 3. W - Provider is unable to clinically determine whether condition was present on admission or not. 4. Other [please specify] PHYSICIAN RESPONSE Condition was Present on Admit: Yes Please remember a lack of response to the above will prompt a phone page by CDI/Coding staff. In responding to this query, please exercise your independent professional judgment. The purpose of this communication is to more accurately reflect the complexity of your patients condition. The fact that a question is asked does not imply that any particular answer is desired or expected. Thank you for your timely response to this clarification. Requestors name: Dena THIS PHYSICIAN QUERY FORM IS A PERMANENT PART OF THE MEDICAL RECORD DENA BAEZ Nov 02, 2021 08:55 KIEL ESCOBAR MD Nov 09, 2021 21:24
--- NOTE | 2021-11-06 13:21 | Anesthesia-General Post-Op ---
MAC Significant Intra-Op Events Notes late entry 10/24/21@ 1300 Patient Condition Mental Status/LOC: Same as Preop Cardiovascular: Satisfactory Nausea/Vomiting: Absent Respiratory: Satisfactory Pain: Controlled Complications: Absent Post Op Complications Complications None Follow Up Care/Instructions Patient Instructions None needed. Anesthesiology Discharge Order Discharge Order Patient is doing well, no complaints, stable vital signs, no apparent adverse anesthesia problems. No complications reported per nursing. VICKY VACA CRNA Nov 06, 2021 13:21
== END 2021-11-01 16:15 | disposition home health service (06) | DRG 871 ==
LOC: ICU 17:10 → 4TH 10-31 12:40
PROVIDERS: ADMIT Internal Medicine; ATTEND Internal Medicine
DX: A41.9 Sepsis, unspecified organism (principal); J18.9 Pneumonia, unspecified organism; J96.01 Acute respiratory failure with hypoxia; I50.31 Acute diastolic (congestive) heart failure; J44.0 Chronic obstructive pulmonary disease with (acute) lower respiratory infection; J44.1 Chronic obstructive pulmonary disease with (acute) exacerbation; I13.0 Hypertensive heart and chronic kidney disease with heart failure and stage 1 through stage 4 chronic kidney disease, or unspecified chronic kidney disease; N17.9 Acute kidney failure, unspecified; Z20.822 Contact with and (suspected) exposure to COVID-19; D62 Acute posthemorrhagic anemia; K92.1 Melena; I47.1 Supraventricular tachycardia; R65.20 Severe sepsis without septic shock; F17.210 Nicotine dependence, cigarettes, uncomplicated; N18.30 Chronic kidney disease, stage 3 unspecified; I48.0 Paroxysmal atrial fibrillation; E66.9 Obesity, unspecified; Z68.33 Body mass index [BMI] 33.0-33.9, adult; R33.9 Retention of urine, unspecified; R31.9 Hematuria, unspecified; E78.2 Mixed hyperlipidemia; K21.00 Gastro-esophageal reflux disease with esophagitis, without bleeding; K44.9 Diaphragmatic hernia without obstruction or gangrene; K29.70 Gastritis, unspecified, without bleeding; K64.1 Second degree hemorrhoids; E03.9 Hypothyroidism, unspecified; Z88.0 Allergy status to penicillin; Z79.01 Long term (current) use of anticoagulants; Z79.82 Long term (current) use of aspirin; Z79.52 Long term (current) use of systemic steroids
CPT/HCPCS: 36415; 71045; 74176; 80048; 80053; 80202; 81000; 82805; 82947; 83036; 83605; 83735; 83880; 84100; 84145; 84484; 85007; 85014; 85018; 85025; 85027; 86850; 86900; 86901; 86920; 87040; 87081; 87635; 87636; 93005; 94640; 94760; 94761

== ENCOUNTER → 2021-10-27 | Outpatient (CLI) | payer OTHER, MEDICARE ==
[~2021-10-27] MED LIST changes: -LACTATED RINGERS 1,000 ML IV ONE; -LACTATED RINGERS 1,000 ML IV STA; -PRED10TA22 PO; -proPOfol 200 MG/20 ML (DIPRIVAN) VIAL IV ONE
[2021-10-27 13:22] LABS: ALBUMIN 2.8 GM/DL (3.2-4.5); POTASSIUM 3.8 MMOL/L (3.6-5.0)
[2021-10-27 13:23] LABS: CALCIUM 7.7 MG/DL (8.5-10.1)
[2021-10-27 13:25] LABS: TOTAL PROTEIN 4.8 GM/DL (6.4-8.2)
[2021-10-27 13:26] LABS: BILIRUBIN,TOTAL 0.3 MG/DL (0.1-1.0)
[2021-10-27 13:28] LABS: CREATININE SERUM 1.22 MG/DL (0.60-1.30)
== END ==
LOC: LABNPT 05:36
PROVIDERS: ATTEND Internal Medicine
DX: Z01.89 Encounter for other specified special examinations (principal)
CPT/HCPCS: 80053

== ENCOUNTER → 2021-11-23 | Outpatient (CLI) | payer MEDICARE, OTHER ==
[~2021-11-23] MED LIST changes: +ATOR40TA PO; +BISA5TAB8 PO; +BUME1TAB8 PO; +BUME2TAB7 PO; +FLUT12AE6 IH; +IPRA3AMP31 IH; +MENT71OI TP; +METH125V13 IJ; +PRED10TA22 PO; +PRED5TAB PO; +SIMV40TA25 PO
== END ==
LOC: LABNPT 10:45
PROVIDERS: ATTEND Family Medicine
DX: Z53.9 Procedure and treatment not carried out, unspecified reason (principal)
CPT/HCPCS: 85027

== ENCOUNTER 2021-11-27 16:20 | Inpatient (IN) | payer MEDICARE, OTHER ==
[~2021-11-27] VITALS: Ht 172 cm; Wt 93.1 kg
[2021-11-27 16:49] LABS: BASOPHILS % (AUTO) 0 % (0-10); EOSINOPHILS % (AUTO) 0 % (0-10); HEMATOCRIT 27 % (40-54); HEMOGLOBIN 8.3 g/dL (13.3-17.7); LYMPHOCYTES # (AUTO) 1.1 10^3/uL (1.0-4.0); LYMPHOCYTES % (AUTO) 5 % (12-44); MEAN CORPUSCULAR HEMOGLOBIN 30 pg (25-34); MEAN CORPUSCULAR HGB CONC 31 g/dL (32-36); MEAN CORPUSCULAR VOLUME 99 fL (80-99); MONOCYTES % (AUTO) 5 % (0-12); NEUTROPHILS # (AUTO) 17.6 10^3/uL (1.8-7.8); NEUTROPHILS % (AUTO) 87 % (42-75); PLATELET COUNT 503 10^3/uL (130-400); WHITE BLOOD COUNT 20.3 10^3/uL (4.3-11.0)
[2021-11-27 16:53] LABS: POTASSIUM 3.4 MMOL/L (3.6-5.0)
--- NOTE | 2021-11-27 16:53 | ED Cough/URI ---
General Chief Complaint: Respiratory Problems Stated Complaint: SOA Nursing Triage Note: PT ARRIVED PER EMS, PT CO OF SOA, STATES NEEDED TO GO TO [facility] FOR LAB WORK HAS ALREADY WENT TODAY FOR CXR. PT HAS SL IN L [place]. STATES HAS SOA. PT O2 SAT 88% FOR EMS Source: patient Exam Limitations: no limitations (BIBI HUSAIN APRN) History of Present Illness Date Seen by Provider: Nov 27, 2021 Time Seen by Provider: 16:50 Initial Comments To ER with shortness of breath. He was recently admitted to the hospital from October 06 to November 01. He went home on November 01 on 2 L of oxygen. For the past 48 hours he has had increasing shortness of breath. No fevers. EMS arrived and found to be at 88% on his baseline 2 L. They gave him 2 breathing treatments in route to the hospital and increased oxygen flow to 7 L with resultant SPO2 of 93%. History of HFpEF, COPD, HTN, HLD, PAF, Acute on Chronic Respiratory Failure, Urinary retention with chronic indwelling corbett, Hx of GI bleed. He was unable to sleep lying flat last night due to shortness of breath so he slept in his recliner. He follows with Dr. Ford for his cardiac issues. He is on prednisone 5mg daily. Timing/Duration: constant Severity/Quality: moderate Prior Episodes/Possible Cause: chronic episodes Associated Symptoms: cough, fever/chills, shortness of breath, wheezing (BIBI HUSAIN APRN) Allergies and Home Medications Allergies Coded Allergies: Penicillins (Unverified Allergy, Mild, RASH, 12/23/06) Patient Home Medication List Home Medication List Reviewed: Yes (BIBI HUSAIN APRN) Atorvastatin Calcium (Lipitor) 40 Mg Tablet, 40 MG PO HS Prescribed by: KIEL ESCOBAR on 10/31/21 1500 Bumetanide (Bumetanide) 1 Mg Tablet, 1 MG PO DAILY Prescribed by: KIEL ESCOBAR on 10/31/21 151 Diltiazem HCl (Diltiazem ER) 180 Mg Capsule.er, 180 MG PO DAILY Prescribed by: KIEL ESCOBAR on 10/31/21 1500 Fluticasone/Salmeterol (Advair Hfa 230-21 Mcg Inhaler) 12 Gm Hfa.aer.ad, 2 PUFF IH BID Prescribed by: KIEL ESCOBAR on 10/31/21 1452 Levothyroxine Sodium (Levothyroxine Sodium) 112 Mcg Tablet, 112 MCG PO DAILY Prescribed by: FRANCISCO BHAKTA on 10/25/21 0604 Menthol/Lanolin/Calamine/Znox (Calmoseptine Ointment) 71 Gm Oint, 1 APPLIC TP BID, (Reported) Entered as Reported by: DIANE SUMMERS on 10/29/21 1105 Montelukast Sodium (Montelukast Sodium) 10 Mg Tablet, 10 MG PO HS Prescribed by: KIEL ESCOBAR on 10/31/21 1500 Pantoprazole Sodium (Pantoprazole Sodium) 40 Mg Tablet.dr, 40 MG PO BID Prescribed by: KIEL ESCOBAR on 10/31/21 1500 Prednisone (Prednisone) 5 Mg Tablet, 5 MG PO DAILY, (Reported) Entered as Reported by: DIANE SUMMERS on 10/29/21 110 Prednisone (Prednisone) 10 Mg Tab.ds.pk, 10 MG PO DAILY Prescribed by: KIEL ESCOBAR on 11/01/21 1253 Sucralfate (Sucralfate) 1 Gm Tablet, 1 GM PO ACHS Prescribed by: KIEL ESCOBAR on 10/31/21 1500 Tamsulosin HCl (Flomax) 0.4 Mg Cap, 0.4 MG PO BID Prescribed by: KIEL ESCOBAR on 10/31/21 1500 Review of Systems Review of Systems Constitutional: see HPI; No chills, No fever EENTM: see HPI Respiratory: see HPI, cough, short of breath Cardiovascular: no symptoms reported Genitourinary: no symptoms reported Musculoskeletal: no symptoms reported Skin: no symptoms reported Psychiatric/Neurological: No Symptoms Reported Hematologic/Lymphatic: No Symptoms Reported Immunological/Allergic: no symptoms reported (BIBI HUSAIN APRN) Past Kofxdem-Pdxhjz-Azukjx Hx Patient Social History Tobacco Use?: No Smoking Status: Former Smoker Substance use?: No Alcohol Use?: No Pt feels they are or have been: No (BIBI HUSAIN APRN) Past Medical History Respiratory: Yes COPD Cardiac: Yes Atrial Fibrillation, High Cholesterol, Hypertension Renal Failure Gastrointestinal Bleed Endocrine: Yes Hypothyroidsim (BIBI HUSAIN APRN) Family Medical History No Pertinent Family Hx (BIBI HUSAIN APRN) Physical Exam Vital Signs - First Documented 11/27/21 16:20 Temp 36.9 Pulse 109 Resp 33 B/P (MAP) 125/59 (81) Pulse Ox 98 O2 Delivery Nasal Cannula O2 Flow Rate 3.00 (CARLOS QUARLES MD) Capillary Refill : Less Than 3 Seconds (BIBI HUSAIN APRN) Height: '" Weight: lbs. oz. kg; 30.00 BMI Method: General Appearance: WD/WN, no apparent distress, other (Does appear dyspneic while in bed. Heart rate 99 oxygen 96% on his baseline 2 L respiratory rate 24 blood pressure 108/63. He has crackles in the posterior left lung base. Right lung is diminished. Appears chronically ill.) Eyes: Bilateral Eye Normal Inspection Neck: non-tender, full range of motion Respiratory: no accessory muscle use, accessory muscle use Gastrointestinal: normal bowel sounds, non tender, soft Extremities: normal range of motion, non-tender Neurologic/Psychiatric: alert, normal mood/affect, oriented x 3 Skin: normal color, warm/dry (BIBI HUSAIN APRN) Focused Exam Lactate Level 11/27/21 16:25: Lactic Acid Level 2.13*H (CARLOS QUARLES MD) Lactic Acid Level Laboratory Tests Test 11/27/21 16:25 Lactic Acid Level 2.13 MMOL/L (0.50-2.00) *H (CARLOS QUARLES MD) Progress/Results/Core Measures Suspected Sepsis SIRS Temperature: Pulse: 109 Respiratory Rate: 33 Laboratory Tests 11/27/21 16:25: White Blood Count 20.3H Blood Pressure 125 /59 Mean: 81 11/27/21 16:25: Lactic Acid Level 2.13*H Laboratory Tests 11/27/21 16:25: Creatinine 0.81, INR Comment 1.2, Platelet Count 503H, Total Bilirubin 0.4 (BIBI HUSAIN APRN) Results/Orders Lab Results Laboratory Tests Test 11/27/21 16:25 11/27/21 16:47 Range/Units White Blood Count 20.3 H 4.3-11.0 10^3/uL Red Blood Count 2.75 L 4.30-5.52 10^6/uL Hemoglobin 8.3 L 13.3-17.7 g/dL Hematocrit 27 L 40-54 % Mean Corpuscular Volume 99 80-99 fL Mean Corpuscular Hemoglobin 30 25-34 pg Mean Corpuscular Hemoglobin Concent 31 L 32-36 g/dL Red Cell Distribution Width 17.0 H 10.0-14.5 % Platelet Count 503 H 130-400 10^3/uL Mean Platelet Volume 10.0 9.0-12.2 fL Immature Granulocyte % (Auto) 2 % Neutrophils (%) (Auto) 87 H 42-75 % Lymphocytes (%) (Auto) 5 L 12-44 % Monocytes (%) (Auto) 5 0-12 % Eosinophils (%) (Auto) 0 0-10 % Basophils (%) (Auto) 0 0-10 % Neutrophils # (Auto) 17.6 H 1.8-7.8 10^3/uL Lymphocytes # (Auto) 1.1 1.0-4.0 10^3/uL Monocytes # (Auto) 1.0 0.0-1.0 10^3/uL Eosinophils # (Auto) 0.0 0.0-0.3 10^3/uL Basophils # (Auto) 0.0 0.0-0.1 10^3/uL Immature Granulocyte # (Auto) 0.5 H 0.0-0.1 10^3/uL Neutrophils % (Manual) 92 % Lymphocytes % (Manual) 3 % Monocytes % (Manual) 5 % Blood Morphology Comment NORMAL Prothrombin Time 15.3 H 12.2-14.7 SEC INR Comment 1.2 0.8-1.4 Activated Partial Thromboplast Time 37 H 24-35 SEC D-Dimer 1.91 H 0.00-0.49 UG/ML Sodium Level 139 135-145 MMOL/L Potassium Level 3.4 L 3.6-5.0 MMOL/L Chloride Level 104 98-107 MMOL/L Carbon Dioxide Level 27 21-32 MMOL/L Anion Gap 8 5-14 MMOL/L Blood Urea Nitrogen 17 7-18 MG/DL Creatinine 0.81 0.60-1.30 MG/DL Estimat Glomerular Filtration Rate 89 BUN/Creatinine Ratio 21 Glucose Level 168 H 70-105 MG/DL Lactic Acid Level 2.13 *H 0.50-2.00 MMOL/L Calcium Level 8.3 L 8.5-10.1 MG/DL Corrected Calcium 9.1 8.5-10.1 MG/DL Total Bilirubin 0.4 0.1-1.0 MG/DL Aspartate Amino Transf (AST/SGOT) 13 5-34 U/L Alanine Aminotransferase (ALT/SGPT) 20 0-55 U/L Alkaline Phosphatase 131 40-136 U/L B-Type Natriuretic Peptide 248.7 H <100.0 PG/ML Total Protein 5.9 L 6.4-8.2 GM/DL Albumin 3.0 L 3.2-4.5 GM/DL Procalcitonin 0.14 H <0.10 NG/ML Influenza Type A (RT-PCR) Not Detected Not Detecte Influenza Type B (RT-PCR) Not Detected Not Detecte SARS-CoV-2 RNA (RT-PCR) Not Detected Not Detecte (CARLOS QUARLES MD) Medications Given in ED Current Medications Medications Dose Ordered Sig/Ashley Route Start Time Stop Time Status Last Admin Dose Admin Cefepime HCl 1000 mg/Sodium Chloride 50 ml @ 100 mls/hr ONCE ONCE IV 11/27/21 17:30 11/27/21 18:01 DC 11/27/21 17:33 100 MLS/HR Iohexol 100 ml ONCE ONCE IV 11/27/21 17:30 11/27/21 17:31 DC 11/27/21 17:40 77 ML Sodium Chloride 100 ml ONCE ONCE IV 11/27/21 17:30 11/27/21 17:31 DC 11/27/21 17:41 80 ML (CARLOS QUARLES MD) Vital Signs/I&O 11/27/21 11/27/21 11/27/21 16:20 16:20 16:43 Temp 36.9 Pulse 109 Resp 33 B/P (MAP) 125/59 (81) Pulse Ox 98 98 O2 Delivery Nasal Cannula Nasal Cannula Nasal Cannula O2 Flow Rate 3.00 3.00 3.00 (CARLOS QUARLES MD) Vital Signs/I&O Capillary Refill : Less Than 3 Seconds (BIBI HUSAIN APRN) Blood Pressure Mean: 81 Departure Communication (Admissions) Family Conversation NAME: ARNAV GARAY [employer] REC#: [id number] PT STATUS: REG ER : 1940 PHYSICIAN: BIBI HUSAIN APRN ADMIT DATE: 11/27/21/ER Draft Date of Exam:11/27/21 CT ANGIO CHEST W PROCEDURE: CT angiography of the chest with contrast. TECHNIQUE: Multiple contiguous axial images were obtained through the chest after uneventful bolus administration of intravenous contrast. 3D reconstructed CTA MIP acquisitions were also performed. Auto Exposure Controls were utilized during the CT exam to meet ALARA standards for radiation dose reduction. INDICATION: Shortness of breath and elevated D-dimer. COMPARISON: Correlation is made with prior CT angiogram of the chest from 10/06/2021. FINDINGS: Evaluation of the pulmonary arterial system is without evidence of thromboembolism. No filling defects are seen within central, lobar, or segmental branches. Thoracic aorta is normal in caliber. No dissection is seen. There is no pericardial fluid. There is moderate right and bgpco-[id number]-veuruxmt left pleural effusion. Extensive infiltrate in the right upper lobe and right middle lobe is noted. There is some compressive atelectasis and consolidation in the right lower lobe. Infiltrates have improved since the prior CT from 10/06/2021. There is some minimal patchy infiltrate in the lingula. Upper abdomen is unremarkable. IMPRESSION: 1. No evidence of pulmonary embolism or acute aortic disease. 2. Bilateral pleural effusions, right greatest. Pleural effusions have increased since prior CT from 10/06/2021. 3. Extensive right-sided infiltrates; however, these have improved since prior study from 10/06/2021. Dictated on workstation # [id number] Dict: 11/27/21 1745 Trans: 11/27/21 1751 [id number] Interpreted by: DELON EVERETT MD Electronically signed by: [id number]-patient refuses an arterial blood gas 1758-heart rate is 98, lactic acid is greater than 2, he has a source of infection on x-ray, he has a white count of 20,000. These are consistent with sepsis from his pneumonia. Right pleural effusion as well. May need thoracentesis to give him some symptomatic relief from this effusion. Will consult surgery. Admit to Dr. Escobar on cefepime and vancomycin. I did address CODE STATUS with the patient and family, they wish to be full CODE STATUS. (BIBI HUSAIN APRN) Impression Primary Impression: Recurrent pneumonia Additional Impressions: COPD (chronic obstructive pulmonary disease) Pleural effusion Disposition: ADMITTED INPATIENT Condition: Stable Admissions Decision to Admit Reason: Admit from ER (General) Decision to Admit/Date: Nov 27, 2021 Time/Decision to Admit Time: 17:26 (BIBI HUSAIN APRN) Departure-Patient Inst. Referrals: GRIS RAYMUNDO MD (PCP/Family) Primary Care Physician ATTENDING PHYSICIAN NOTE: I was physically present as attending physician in the emergency department during the care of this patient, but I was not directly involved in the decision making or delivery of care for this patient. (CARLOS QUARLES MD) BIBI HUSAIN APRN Nov 27, 2021 16:53 CARLOS QUARLES MD Nov 27, 2021 20:01
[2021-11-27 16:54] LABS: CALCIUM 8.3 MG/DL (8.5-10.1)
[2021-11-27 16:55] LABS: TOTAL PROTEIN 5.9 GM/DL (6.4-8.2)
[2021-11-27 16:57] LABS: BILIRUBIN,TOTAL 0.4 MG/DL (0.1-1.0)
[2021-11-27 16:58] LABS: CREATININE SERUM 0.81 MG/DL (0.60-1.30); FIBRIN DEGRADATION PRODUCTS 1.91 UG/ML (0.00-0.49); INR 1.2 (0.8-1.4); PROTHROMBIN TIME PATIENT 15.3 SEC (12.2-14.7)
[2021-11-27 17:10] LABS: LYMPHOCYTES % (MANUAL) 3 %; MONOCYTES % (MANUAL) 5 %; NEUTROPHILS % (MANUAL) 92 %; RBC MORPH NORMAL
[2021-11-27] MEDS ORDERED: HOLD METFORMIN - RECEIVED CONTRAST 20 ML VIAL IV SCH (17:30)
[2021-11-27] MEDS ORDERED: CEFEPIME INJECTION 1,000 MG in NS (IVPB) 50 ML IV ONE (17:30)
[2021-11-27] MEDS ORDERED: NS 100 ML (IVPB) BAG IV ONE (17:30)
[2021-11-27] MEDS ORDERED: IOHEXOL 350 MG/ML 100 ML (OMNIPAQUE 350) VIAL IV ONE (17:30)
--- NOTE | 2021-11-27 17:53 | Diagnostic Imaging Report ---
PROCEDURE: CT angiography of the chest with contrast. TECHNIQUE: Multiple contiguous axial images were obtained through the chest after uneventful bolus administration of intravenous contrast. 3D reconstructed CTA MIP acquisitions were also performed. Auto Exposure Controls were utilized during the CT exam to meet ALARA standards for radiation dose reduction. INDICATION: Shortness of breath and elevated D-dimer. COMPARISON: Correlation is made with prior CT angiogram of the chest from 10/06/2021. FINDINGS: Evaluation of the pulmonary arterial system is without evidence of thromboembolism. No filling defects are seen within central, lobar, or segmental branches. Thoracic aorta is normal in caliber. No dissection is seen. There is no pericardial fluid. There is moderate right and yfake-xw-jumhqout left pleural effusion. Extensive infiltrate in the right upper lobe and right middle lobe is noted. There is some compressive atelectasis and consolidation in the right lower lobe. Infiltrates have improved since the prior CT from 10/06/2021. There is some minimal patchy infiltrate in the lingula. Upper abdomen is unremarkable. IMPRESSION: 1. No evidence of pulmonary embolism or acute aortic disease. 2. Bilateral pleural effusions, right greatest. Pleural effusions have increased since prior CT from 10/06/2021. 3. Extensive right-sided infiltrates; however, these have improved since prior study from 10/06/2021. Dictated by: Dictated on workstation # [id number]
[2021-11-27] MEDS ORDERED: LACTATED RINGERS 1,000 ML IV SCH (18:00)
[2021-11-27 20:00] VITALS: BP 121/53
--- NOTE | 2021-11-27 20:07 | CONSULTATION REPORT ---
DATE OF SERVICE: ADMITTING PHYSICIAN: Dr. Chase. ATTENDING PRIMARY CARE PHYSICIAN: Dr. Molly Flores. HISTORY OF PRESENT ILLNESS: The patient is an 81-year-old male known to us. He presented to [facility] Emergency Department with shortness of breath. He was admitted twice in the month of 10/2021 for shortness of breath as well as anemia. He states for the past 48 hours he has had increased shortness of breath. EMS was called and his oxygen level was 88% on his baseline 2 liters nasal cannula. He does have an extensive past medical history including heart failure, COPD, hypertension, hyperlipidemia, atrial fibrillation as well as history of moderate to large hiatal hernia. A CT scan was performed, which did not show any pulmonary embolism; however, he does have bilateral pleural effusions with the right significantly larger. He is still anemic with a hemoglobin of 8, which has been his baseline. We had done an EGD and colonoscopy on him on 10/24/2021 and was found to have a reflux esophagitis, Har[place] grade C, moderate to large size hiatal hernia, 4 cm in size, moderate gastritis with a very small healed antral ulcer, and no active bleeding. There was also found to have chronic stage II external and internal hemorrhoids; however, no other colonic lesions as well as no active bleeding. PAST MEDICAL HISTORY: COPD, hypertension, chronic kidney disease, paroxysmal atrial fibrillation with rapid ventricular response, gastroesophageal reflux disease, moderate to large size hiatal hernia, peptic ulcer disease. PAST SURGICAL HISTORY: None known. ALLERGIES: PENICILLIN. MEDICATIONS: Atorvastatin 40 mg daily, bumetanide 1 mg daily, diltiazem 180 mg daily, Advair 2 puffs b.i.d., levothyroxine 112 mcg daily, montelukast 10 mg daily, Protonix 40 mg b.i.d., prednisone 5 mg daily, Carafate 1 gram q.i.d., tamsulosin 0.4 mg b.i.d. SOCIAL HISTORY: Previous smoker, 40 pack years. Negative alcohol. FAMILY HISTORY: Noncontributory. VITAL SIGNS: Temperature 36.9, blood pressure 125/59, pulse 109, respirations 33, pulse ox 98% on 3 liters nasal cannula. REVIEW OF SYSTEMS: This is a well-nourished male currently in no acute distress. He is experiencing some shortness of breath, especially upon exertion. No new cough or sputum production. History of gastroesophageal reflux disease and hiatal hernia. No hematemesis, no coffee ground emesis. No known diarrhea, constipation, no red blood per rectum, no dark tarry stools. No fever, chills, no recent inadvertent weight loss. All other review of systems negative. PHYSICAL EXAMINATION: CHEST: Decreased breath sounds in bilateral bases. Expiratory wheezes. HEART: Regular, no murmurs. EXTREMITIES: +1/3 bilateral lower extremity edema, negative Homans sign. HEENT: No scleral icterus. NECK: No cervical lymphadenopathy. ABDOMEN: Soft, nontender, nondistended. SKIN: Warm, dry. LABORATORY DATA: WBC 20.3, hemoglobin 8.3, hematocrit 27, platelets 503. BUN 17, creatinine 0.81. BNP 248.7. ASSESSMENT AND PLAN: An 81-year-old male with exacerbation of COPD, likely some level of congestive heart failure as well as bilateral pleural effusion with the right side larger than the left and symptomatic shortness of breath. We will proceed with thoracentesis initially starting on the right and possibly on the left if this does change in size. Job ID: [id number] DocumentID: [id number] Dictated Date: 11/27/2021 19:27:39 Rose Grading Supervisor Date: 11/27/2021 20:05:19 Dictated By: EDVIN MARROQUIN MD
[2021-11-27 20:30] VITALS: BP 125/59
[2021-11-27] MEDS ORDERED: RT-ALBUTEROL/IPRATROPIUM 3 ML (DUONEB) VIAL INH PRN (20:45)
[2021-11-27 21:00] VITALS: BP 128/58
[2021-11-27 22:00] VITALS: BP 114/92
[2021-11-27] MEDS ORDERED: ONDANSETRON 4 MG/2 ML (SDV) Z0FRAN IV PRN (22:15)
[2021-11-27] MEDS ORDERED: VANCOMYCIN 750 MG/NS 250 ML IVPB IV ONE ×2 (22:30)
[2021-11-27] MEDS: LACTATED RINGERS 1,000 ML IV SCH (22:35)
[2021-11-27] MEDS: RT-ALBUTEROL/IPRATROPIUM 3 ML (DUONEB) VIAL INH SCH (22:57)
[2021-11-27 23:00] VITALS: BP 127/57
[2021-11-27] MEDS ORDERED: VANCOMYCIN 1 GM/NS 250 ML IVPB IV ONE ×2 (23:30)
[2021-11-28 00:06] VITALS: BP 127/56
[2021-11-28] MEDS: CEFEPIME 1,000 MG/NS 50 ML IVPB IV SCH ×8 (01:16→17:27)
[2021-11-28] MEDS: RT-ALBUTEROL/IPRATROPIUM 3 ML (DUONEB) VIAL INH SCH ×6 (02:13→22:50)
[2021-11-28 03:22] VITALS: BP 108/60
[2021-11-28 05:04] LABS: BASOPHILS % (AUTO) 0 % (0-10); EOSINOPHILS % (AUTO) 0 % (0-10); HEMATOCRIT 26 % (40-54); HEMOGLOBIN 7.9 g/dL (13.3-17.7); LYMPHOCYTES # (AUTO) 1.3 10^3/uL (1.0-4.0); LYMPHOCYTES % (AUTO) 7 % (12-44); MEAN CORPUSCULAR HEMOGLOBIN 30 pg (25-34); MEAN CORPUSCULAR HGB CONC 30 g/dL (32-36); MEAN CORPUSCULAR VOLUME 98 fL (80-99); MEAN PLATELET VOLUME 9.6 fL (9.0-12.2); MONOCYTES # (AUTO) 1.2 10^3/uL (0.0-1.0); MONOCYTES % (AUTO) 6 % (0-12); NEUTROPHILS # (AUTO) 15.6 10^3/uL (1.8-7.8); NEUTROPHILS % (AUTO) 85 % (42-75); PLATELET COUNT 443 10^3/uL (130-400); WHITE BLOOD COUNT 18.5 10^3/uL (4.3-11.0)
[2021-11-28 05:13] LABS: POTASSIUM 3.5 MMOL/L (3.6-5.0)
[2021-11-28 05:14] LABS: CALCIUM 8.1 MG/DL (8.5-10.1)
[2021-11-28 05:18] LABS: CREATININE SERUM 0.68 MG/DL (0.60-1.30)
[2021-11-28 08:00] VITALS: BP 85/65
[2021-11-28] MEDS: VANCOMYCIN 1250 MG/NS 250 ML IVPB IV SCH ×4 (09:53→21:34)
[2021-11-28] MEDS: ACETAMINOPHEN 325 MG TABLET PO SCH (09:57)
--- NOTE | 2021-11-28 10:25 | Diagnostic Imaging Report ---
INDICATION: Pleural effusion. FINDINGS: Sonographic evaluation of the chest was performed prior to thoracentesis. There is a large right pleural effusion. Marking was provided for Dr. Teague for performance of a thoracentesis. IMPRESSION: Large right pleural effusion. Marking was provided for Dr. Teague for performance of thoracentesis. Dictated by: Dictated on workstation # [id number]
[2021-11-28 12:00] VITALS: BP 112/79
[2021-11-28] MEDS: LACTATED RINGERS 1,000 ML IV SCH (12:05)
[2021-11-28] MEDS ORDERED: SUCR1TAB36 PO (12:10)
[2021-11-28] MEDS ORDERED: ALB0.5V INH (12:10)
[2021-11-28] MEDS ORDERED: BUME1TAB8 PO (12:10)
[2021-11-28] MEDS ORDERED: ATOR40TA70 PO (12:10)
[2021-11-28] MEDS ORDERED: DILT180T9 PO (12:10)
[2021-11-28] MEDS ORDERED: PANT40TA52 PO (12:10)
[2021-11-28] MEDS ORDERED: MONT-40 PO (12:10)
[2021-11-28] MEDS ORDERED: LACT1CAP39 PO (12:10)
[2021-11-28] MEDS ORDERED: FLUT12AE6 IH (12:10)
[2021-11-28] MEDS ORDERED: TMSL.4C PO (12:10)
[2021-11-28] MEDS ORDERED: LEVO125T6 PO (12:46)
[2021-11-28 16:00] VITALS: BP 137/85
--- NOTE | 2021-11-28 17:42 | History & Physical-Hospitalist ---
History of Present Illness HPI/Chief Complaint Bharat Webber is an 81 year old male with PMH HTN, HLD, AFib, HFpEF, COPD on home oxygen 2 L with activity, BPH with chronic indwelling corbett, iron defieicency anemia, recent GI bleed due to gastric ulcer, who presented with shortness of breath. He has been feeling more weak over the past few days. He has been getting short of breath with minimal activity. He denies fevers and chills. He has been coughing. He denies chest pain. He denies abdominal pain. He denies nausea and vomiting. He has not noticed any swelling. Source: patient Exam Limitations: no limitations Date Seen 11/28/21 Time Seen by a Provider: 08:45 Attending Physician Lesly Escobar MD PCP Molly Flores MD Referring Physician Date of Admission Nov 27, 2021 at 18:00 Home Medications & Allergies Home Medications Reviewed patient Home Medication Reconciliation performed by pharmacy medication reconciliations planetarium sky show technician and/or nursing. Patients Allergies have been reviewed. Allergies Allergies Coded Allergies Penicillins (Unverified Allergy, Mild, RASH, 12/23/06) Past Knwwudq-Xqinei-Zjoyeg Hx Patient Social History Tobacco Use?: No Smoking Status: Former Smoker Substance use?: No Alcohol Use?: No Pt feels they are or have been: No Immunizations Up To Date Tetanus Booster (TDap): More Than 5 Years Hepatitis A: No Hepatitis B: No Current Status Advance Directives: Yes Advance Directive Location: Family to bring in copy Communicates: Verbally Primary Language: Cameroonian Preferred Spoken Language: Cameroonian Is interpretation needed?: No Sensory deficits: Vision impairment Implanted or Applied Medical D: None Past Medical History COPD Atrial Fibrillation, High Cholesterol, Hypertension Renal Failure Gastrointestinal Bleed Hypothyroidsim Family Medical History No Pertinent Family Hx Review of Systems Constitutional: weakness EENTM: no symptoms reported Respiratory: cough, dyspnea on exertion, short of breath Cardiovascular: no symptoms reported Gastrointestinal: no symptoms reported Genitourinary: no symptoms reported Musculoskeletal: no symptoms reported Skin: no symptoms reported Psychiatric/Neurological: No Symptoms Reported Physical Exam Physical Exam Vital Signs Vital Signs - First Documented 11/27/21 11/27/21 16:20 20:30 Temp 36.9 Pulse 109 Resp 33 B/P (MAP) 125/59 (81) Pulse Ox 98 O2 Delivery Nasal Cannula O2 Flow Rate 3.00 FiO2 32 Capillary Refill : Less Than 3 Seconds Height, Weight, BMI Height: '" Weight: lbs. oz. kg; 31.23 BMI Method: General Appearance: No Apparent Distress, WD/WN HEENT: PERRL/EOMI, Pharynx Normal Neck: Normal Inspection, Supple Respiratory: No Respiratory Distress, Decreased Breath Sounds, Wheezing Cardiovascular: Regular Rate, Rhythm, No Edema, No Murmur Gastrointestinal: Normal Bowel Sounds, Non Tender, Soft Extremity: Normal Inspection, Non Tender, No Pedal Edema Neurologic/Psychiatric: Alert, Oriented x3, Motor Weakness Skin: Normal Color, Warm/Dry Results Results/Procedures Labs Laboratory Tests 11/27/21 16:25 11/28/21 04:55 Patient resulted labs reviewed. Imaging: Reviewed Imaging Films, Reviewed Imaging Report Assessment/Plan Admission Diagnosis Severe sepsis due to pneumonia Admission Status: Inpatient Order (span 2 midnights) Reason for Inpatient Admission: Respiratory failure Assessment and Plan Severe sepsis Pneumonia Lactic acidosis Acute on chronic respiratory failure with hypoxia Pleural effusions Supplemental oxygen as needed Vancomycin and Cefepime IV fluids Surgery consulted Planning for thoracentesis Consult pulmonology HFpEF Hold diuretics COPD BPH Hypothyroidism AFib Continue home meds Debility PT/OT DVT prophylaxis: Lovenox Diagnosis/Problems Diagnosis/Problems (1) Severe sepsis Status: Acute (2) Lactic acidosis Status: Acute (3) Recurrent pneumonia Status: Acute (4) Acute on chronic respiratory failure with hypoxemia Status: Acute (5) Debility Status: Acute (6) Chronic heart failure with preserved ejection fraction (HFpEF) Status: Chronic (7) COPD (chronic obstructive pulmonary disease) Status: Chronic (8) Anemia Status: Chronic (9) Paroxysmal atrial fibrillation Status: Chronic (10) Primary hypertension Status: Chronic (11) Mixed hyperlipidemia Status: Chronic (12) Obesity Status: Chronic LESLY ESCOBAR MD Nov 28, 2021 17:42
[2021-11-28] MEDS ORDERED: ENOXAPARIN 40 MG/0.4 ML (LOVENOX) SYR SC SCH (18:00)
[2021-11-28] MEDS ORDERED: fentaNYL INJ 100 MCG/2 ML AMP ONE (18:24)
--- NOTE | 2021-11-28 19:10 | Diagnostic Imaging Report ---
HISTORY: Post thoracentesis. TECHNIQUE: Frontal view of the chest. COMPARISON: 11/27/2021. FINDINGS: There is airspace consolidation in the right upper lobe and in the lung bases. Overall aeration appears mildly improved on the right and mildly decreased on the left. No large effusion or pneumothorax is seen. The cardiac silhouette is normal in size. IMPRESSION: 1. The right pleural effusion is improved. No pneumothorax. 2. Bilateral airspace opacities consistent with infection. Dictated by: Dictated on workstation # [id number]
[2021-11-28] MEDS ORDERED: KCL 20 MEQ TAB (K-DUR) PO ONE ×2 (19:45→21:31)
[2021-11-28] MEDS ORDERED: NON-FORMULARY MEDICATION 1 EA EA (Fluticasone/Salmeterol (Advair Hfa 230-21 Mcg Inhaler) 2 IH SCH (21:00)
[2021-11-28 21:10] LABS: ALBUMIN,BODY FLUID 1.1 G/DL; GLUCOSE,BODY FLUID 107 MG/DL; LDH,BODY FLUID 118 U/L; TOTAL PROTEIN,BODY FLUID 1.8 G/DL
[2021-11-28] MEDS ORDERED: APIXABAN 5 MG (ELIQUIS) TABLET ONE (21:31)
[2021-11-28] MEDS: APIXABAN 5 MG (ELIQUIS) TABLET PO SCH (21:36)
[2021-11-28] MEDS: MONTELUKAST 10 MG (SINGULAIR) TAB PO SCH (21:36)
[2021-11-28] MEDS: SUCRALFATE 1 GM (CARAFATE) TAB PO SCH (21:36)
[2021-11-28 21:40] LABS: BODY FLUID APPEARENCE CLEAR; BODY FLUID COLOR PALE YELLOW; BODY FLUID SOURCE PLEURAL
[2021-11-28 21:41] LABS: BODY FLUID RBC COUNT 100 /uL; BODY FLUID WBC TOTAL COUNT 28 /uL
[2021-11-28 21:47] LABS: LYMPHOCYTES,BODY FLUID 34 %
[2021-11-28 21:48] LABS: BF OTHER CELLS 5 %
[2021-11-28] MEDS: RT--FLUTICASONE/SALMETEROL 232-14 (AIRDUO RespiCLICK) IH SCH (22:51)
[2021-11-28 23:45] VITALS: BP 130/66
--- NOTE | 2021-11-29 00:25 | OPERATIVE REPORT ---
DATE OF SERVICE: 11/28/2021 PREOPERATIVE DIAGNOSIS: Bilateral pleural effusion with the right larger than the left and symptomatic shortness of breath. POSTOPERATIVE DIAGNOSES: Bilateral pleural effusion with the right larger than the left and symptomatic shortness of breath. PROCEDURE: Right thoracentesis. SURGEON: Edvin Marroquin MD ANESTHESIA: Local. ESTIMATED BLOOD LOSS: Minimal. FINDINGS: 1600 mL of straw yellow transudative fluid. DISPOSITION: The patient tolerated the procedure well. INDICATIONS: The patient is an 81-year-old male with multiple medical problems and admitted for exacerbation of chronic obstructive pulmonary disease as well as bilateral pleural effusions. He does have a previous history of smoking; however, quit. A CT scan was performed, which did show bilateral pleural effusions with a right larger than the left. Before the procedure, the right pleural effusion was marked towards the posterolateral back by ultrasonography. DESCRIPTION OF PROCEDURE: The back was then prepped and draped in standard surgical fashion. A 1% lidocaine was then used to anesthetize the skin, muscle layers as well as the parietal pleural lining using 1% lidocaine. At approximately the eighth intercostal space, a vertical skin incision was made using 11 blade and the catheter and trocar were then introduced withdrawing of straw yellow transudative fluid. The catheter was then advanced over the trocar without any resistance. The catheter was then connected to vacuum container bottle where 1600 mL of straw yellow transudative fluid was evacuated. The catheter was then removed under positive pressure ventilation and while holding direct pressure and an Op-Site was placed on the entry site. Good hemostasis was observed. The patient tolerated the procedure well. We will send the fluid off for cytology as well as laboratory panel. We will continue to monitor for recurrence as well as worsening pleural effusion along the left side. Job ID: [id number] DocumentID: [id number] Dictated Date: 11/28/2021 18:55:52 Shoe Coverer Date: 11/29/2021 00:24:33 Dictated By: EDVIN MARROQUIN MD
[2021-11-29] MEDS: CEFEPIME 1,000 MG/NS 50 ML IVPB IV SCH ×8 (00:30→19:26)
[2021-11-29] MEDS: RT-ALBUTEROL/IPRATROPIUM 3 ML (DUONEB) VIAL INH SCH ×6 (02:36→22:00)
[2021-11-29 03:53] VITALS: BP 106/52
[2021-11-29] MEDS: LACTATED RINGERS 1,000 ML IV SCH ×2 (04:55→14:50)
[2021-11-29] MEDS ORDERED: NON-FORMULARY MEDICATION 1 EA EA (Diltiazem HCl (Diltiazem ER) 180 MG) PO SCH (06:00)
[2021-11-29 06:28] LABS: BASOPHILS # (AUTO) 0.1 10^3/uL (0.0-0.1); BASOPHILS % (AUTO) 0 % (0-10); EOSINOPHILS # (AUTO) 0.3 10^3/uL (0.0-0.3); EOSINOPHILS % (AUTO) 2 % (0-10); HEMATOCRIT 30 % (40-54); HEMOGLOBIN 8.8 g/dL (13.3-17.7); LYMPHOCYTES # (AUTO) 1.1 10^3/uL (1.0-4.0); LYMPHOCYTES % (AUTO) 7 % (12-44); MEAN CORPUSCULAR HEMOGLOBIN 29 pg (25-34); MEAN CORPUSCULAR HGB CONC 30 g/dL (32-36); MEAN CORPUSCULAR VOLUME 99 fL (80-99); MEAN PLATELET VOLUME 9.5 fL (9.0-12.2); MONOCYTES # (AUTO) 0.9 10^3/uL (0.0-1.0); MONOCYTES % (AUTO) 6 % (0-12); NEUTROPHILS # (AUTO) 14.1 10^3/uL (1.8-7.8); NEUTROPHILS % (AUTO) 84 % (42-75); PLATELET COUNT 489 10^3/uL (130-400); WHITE BLOOD COUNT 16.8 10^3/uL (4.3-11.0)
[2021-11-29 06:36] LABS: CALCIUM 8.1 MG/DL (8.5-10.1)
[2021-11-29 06:41] LABS: CREATININE SERUM 0.72 MG/DL (0.60-1.30)
[2021-11-29] MEDS: SUCRALFATE 1 GM (CARAFATE) TAB PO SCH ×4 (06:54→21:49)
[2021-11-29] MEDS: LEVOTHYROXINE 125 MCG (LEVOTHROID) TABLET PO SCH (06:54)
[2021-11-29] MEDS: RT--FLUTICASONE/SALMETEROL 232-14 (AIRDUO RespiCLICK) IH SCH ×2 (07:10→18:31)
[2021-11-29 07:27] LABS: BAND NEUTROPHILS 4 %; BASOPHILS % (MANUAL) 0 %; EOSINOPHILS % (MANUAL) 2 %; LYMPHOCYTES % (MANUAL) 4 %; METAMYELOCYTES % 1 %; MONOCYTES % (MANUAL) 3 %; NEUTROPHILS % (MANUAL) 86 %
[2021-11-29 07:28] LABS: ANISOCYTOSIS SLIGHT; POIKILOCYTOSIS SLIGHT; POLYCHROMASIA SLIGHT
[2021-11-29 08:00] VITALS: BP 136/71
[2021-11-29] MEDS ORDERED: TROUGH ORDER-PHARMACY XX ONE (08:00)
--- NOTE | 2021-11-29 08:39 | Consultation-Cardiology ---
HPI-Cardiology Cardiology Consultation: Date of Consultation 11/29/21 Time Seen by a Provider: 08:30 Date of Admission 11-28-21 Attending Physician Kiel Escobar MD Admitting Physician Molly Flores MD Consulting Physician Camacho Jesus MD Primary Investment Advisor: Dr. Ford HPI: Chief Complaint: Progressive dyspnea Mr. Garay is an 81 yr old male admitted to [facility] from the ED. He reports increasing SOB over the course of the last several days. Per ED records at the time of EMS arrival his O2 sats were in the 80's. He denies any c/o CP, palpitations, syncope or near syncope. He reports he has chronic bilat LE swelling which he feels has been better than before. He reports he had fluid drained off his lungs yesterday and feels his breathing has improved. No c/o n/v/d. No c/o fever or chills. Review of Systems-Cardiology Review of Systems Constitutional: No chills, No fever; malaise Eyes: No vision change Ears/Nose/Throat: No epistaxis, No recent hearing loss Respiratory: As described under HPI Cardiovascular: As described under HPI Gastrointestinal: No constipation, No diarrhea, No nausea, No vomiting Genitourinary: no symptoms reported Musculoskeletal: joint pain Skin: No rash on exposed areas, No ulcerations on exposed areas Psychiatric/Neurological: No anxiety, No depression, No seizure, No focal weakness, No syncope Hematologic: No bleeding abnormalities QMD-Cekabu-Rwjhgz Hx Patient Social History Smoking Status: Former Smoker Have you traveled recently?: No Alcohol Use?: No Pt feels they are or have been: No Past Medical History PMH As described under Assessment. Family Medical History Family Medical History: The patient does not know of any family history of premature coronary artery disease in first-degree relatives. Allergies and Home Medications Allergies Coded Allergies: Penicillins (Unverified Allergy, Mild, RASH, 12/23/06) Patient Home Medication List Albuterol Sulfate (Albuterol Sulfate) 2.5 Mg/0.5 Ml Vial.neb, 2.5 MG INH Q6H PRN for SHORTNESS OF BREATH, (Reported) Entered as Reported by: DIANE SUMMERS on 11/28/21 1210 Last Action: Held Atorvastatin Calcium (Atorvastatin Calcium) 40 Mg Tablet, 40 MG PO HS, (Reported) Entered as Reported by: DIANE SUMMERS on 11/28/211209 Last Action: Continued Bumetanide (Bumetanide) 1 Mg Tablet, 1 MG PO DAILY, (Reported) Entered as Reported by: DIANE SUMMERS on 11/28/211209 Last Action: Held Diltiazem HCl (Diltiazem ER) 180 Mg Tab.er.24h, 180 MG PO 0600, (Reported) Entered as Reported by: DIANE SUMMERS on 11/28/211209 Last Action: Converted Fluticasone/Salmeterol (Advair Hfa 230-21 Mcg Inhaler) 12 Gm Hfa.aer.ad, 2 PUFF IH BID, (Reported) Entered as Reported by: DIANE SUMMERS on 11/28/211209 Last Action: Converted Lactobacillus Rhamnosus GG (Culturelle) 1 Each Capsule, 1 EACH PO DAILY, (Reported) Entered as Reported by: DIANE SUMMERS on 11/28/211209 Last Action: Converted Levothyroxine Sodium (Levothyroxine Sodium) 125 Mcg Tablet, 125 MCG PO 0600, (Reported) Entered as Reported by: DIANE SUMMERS on 11/28/21 124 Last Action: Continued Montelukast Sodium (Montelukast Sodium) 10 Mg Tablet, 10 MG PO HS, (Reported) Entered as Reported by: DIANE SUMMERS on 11/28/211209 Last Action: Continued Pantoprazole Sodium (Pantoprazole Sodium) 40 Mg Tablet.dr, 40 MG PO 0800,1400, (Reported) Entered as Reported by: DIANE SUMMERS on 11/28/211209 Last Action: Continued Prednisone (Prednisone) 5 Mg Tablet, 5 MG PO DAILY, (Reported) Entered as Reported by: DIANE SUMMERS on 10/29/21 1105 Last Action: Continued Sucralfate (Carafate) 1 Gm Tablet, 1 GM PO ACHS, (Reported) Entered as Reported by: DIANE SUMMERS on 11/28/211209 Last Action: Continued Tamsulosin HCl (Flomax) 0.4 Mg Cap, 0.4 MG PO 0800,1400, (Reported) Entered as Reported by: DIANE SUMMERS on 11/28/211209 Last Action: Continued Discontinued Medications Atorvastatin Calcium (Lipitor) 40 Mg Tablet, 40 MG PO HS Discontinued Reason: Duplicate Order Prescribed by: KIEL ESCOBAR on 10/31/211499 Last Action: Discontinued Bumetanide (Bumetanide) 1 Mg Tablet, 1 MG PO DAILY Discontinued Reason: Duplicate Order Prescribed by: KIEL ESCOBAR on 10/31/21 151 Last Action: Discontinued Diltiazem HCl (Diltiazem ER) 180 Mg Capsule.er, 180 MG PO DAILY Discontinued Reason: Duplicate Order Prescribed by: KILE ESCOBAR on 10/31/211499 Last Action: Discontinued Fluticasone/Salmeterol (Advair Hfa 230-21 Mcg Inhaler) 12 Gm Hfa.aer.ad, 2 PUFF IH BID Discontinued Reason: Duplicate Order Prescribed by: KIEL ESCOBAR on 10/31/21 145 Last Action: Discontinued Levothyroxine Sodium (Levothyroxine Sodium) 112 Mcg Tablet, 112 MCG PO DAILY Discontinued Reason: No Longer Taking Prescribed by: FRANCISCO BHAKTA on 10/25/21 0604 Last Action: Discontinued Menthol/Lanolin/Calamine/Znox (Calmoseptine Ointment) 71 Gm Oint, 1 APPLIC TP BID, (Reported) Discontinued Reason: No Longer Taking Entered as Reported by: DIANE SUMMERS on 10/29/21 1105 Last Action: Discontinued Montelukast Sodium (Montelukast Sodium) 10 Mg Tablet, 10 MG PO HS Discontinued Reason: Duplicate Order Prescribed by: KIEL ESCOBAR on 10/31/211499 Last Action: Discontinued Pantoprazole Sodium (Pantoprazole Sodium) 40 Mg Tablet.dr, 40 MG PO BID Discontinued Reason: Duplicate Order Prescribed by: KIEL ESCOBAR on 10/31/211499 Last Action: Discontinued Prednisone (Prednisone) 10 Mg Tab.ds.pk, 10 MG PO DAILY Discontinued Reason: Duplicate Order Prescribed by: KIEL SECOBAR on 11/01/21 1253 Last Action: Discontinued Sucralfate (Sucralfate) 1 Gm Tablet, 1 GM PO ACHS Discontinued Reason: Duplicate Order Prescribed by: KIEL ESCOBAR on 10/31/211499 Last Action: Discontinued Tamsulosin HCl (Flomax) 0.4 Mg Cap, 0.4 MG PO BID Discontinued Reason: Duplicate Order Prescribed by: KIEL ESCOBAR on 10/31/211499 Last Action: Discontinued Physical Exam-Cardiology Physical Exam Vital Signs/I&O 12/02/21 12/02/21 12/03/21 12/03/21 21:32 23:41 01:15 02:27 Temp 36.3 Pulse 100 91 Resp 20 B/P (MAP) 118/61 (80) Pulse Ox 98 92 96 O2 Delivery Nasal Cannula High Flow N/C Nasal Cannula O2 Flow Rate 3.00 3.00 3.00 12/03/21 12/03/21 12/03/21 04:14 07:00 08:16 Temp 36.3 Pulse 107 106 Resp 25 B/P (MAP) 118/65 (82) Pulse Ox 94 95 O2 Delivery High Flow N/C Nasal Cannula O2 Flow Rate 3.00 3.00 12/03/21 00:00 Intake Total 1050 ml Output Total 3000 ml Balance -1950 ml Capillary Refill : Less Than 3 Seconds Constitutional: AAO x 3, well-developed, well-nourished HEENT: PERRL, hearing is well preserved Neck: No carotid bruit Respiratory: No accessory muscle use, No respiratory distress; chest expansion is symmetric, chest is bilaterally symmetric, rhonchi (scattered), other (diminished lower lobes bilat) Cardiovascular: irregularly irregular; No JVD; S1 and S2 Gastrointestinal: No tender; soft, round, audible bowel sounds Extremities: other (mild to mod bilat LE swelling) Neurologic/Psychiatric: grossly intact (moves all extremities) Skin: No rash on exposed areas, No ulcerations on exposed areas Data Review Labs Laboratory Tests 12/03/21 06:40: Sodium Level 137, Potassium Level 3.9, Chloride Level 104, Carbon Dioxide Level 23, Anion Gap 10, Blood Urea Nitrogen 31H, Creatinine 0.89, Estimat Glomerular Filtration Rate 87, BUN/Creatinine Ratio 35, Glucose Level 100, Calcium Level 8.1L Microbiology 11/28/21 Gram Stain - Final, Complete 11/28/21 Body Fluid Culture - Final, Complete No growth 11/27/21 Blood Culture - Preliminary, Resulted No growth Radiology NAME: ARNAV GARAY Lidya [facility] REC#: [id number] PT STATUS: ADM IN : 1940 PHYSICIAN: FRANCISCO BHAKTA DO ADMIT DATE: 10/27/21/ICU Signed Date of Exam:10/31/21 CHEST 1 VIEW, AP/PA ONLY REASON FOR EXAMINATION: Dyspnea. Semiupright AP portable chest was obtained and compared to yesterday. FINDINGS: Low lung volumes with persistent but improved right lower lobe infiltrate. No effusions or pneumothorax. No cystic or cavitary change. Stable central line on the right. IMPRESSION: 1. Persistent but improved right lower lobe infiltrate on a background of low lung volumes. Dictated by: Dictated on workstation # [id number] Dict: 10/31/21656 Trans: 10/31/21820 [id number] Interpreted by: KHANH CHEEMA MD Electronically signed by: KHANH CHEEMA MD 10/31/21820 NAME: ARNAV GARAY [facility] REC#: [id number] PT STATUS: ADM IN : 1940 PHYSICIAN: BIBI HUSAIN APRN ADMIT DATE: 11/27/21/[facility] Signed Date of Exam:11/27/21 CT ANGIO CHEST W PROCEDURE: CT angiography of the chest with contrast. TECHNIQUE: Multiple contiguous axial images were obtained through the chest after uneventful bolus administration of intravenous contrast. 3D reconstructed CTA MIP acquisitions were also performed. Auto Exposure Controls were utilized during the CT exam to meet ALARA standards for radiation dose reduction. INDICATION: Shortness of breath and elevated D-dimer. COMPARISON: Correlation is made with prior CT angiogram of the chest from 10/06/2021. FINDINGS: Evaluation of the pulmonary arterial system is without evidence of thromboembolism. No filling defects are seen within central, lobar, or segmental branches. Thoracic aorta is normal in caliber. No dissection is seen. There is no pericardial fluid. There is moderate right and tvyoz-us-vcbzjjiz left pleural effusion. Extensive infiltrate in the right upper lobe and right middle lobe is noted. There is some compressive atelectasis and consolidation in the right lower lobe. Infiltrates have improved since the prior CT from 10/06/2021. There is some minimal patchy infiltrate in the lingula. Upper abdomen is unremarkable. IMPRESSION: 1. No evidence of pulmonary embolism or acute aortic disease. 2. Bilateral pleural effusions, right greatest. Pleural effusions have increased since prior CT from 10/06/2021. 3. Extensive right-sided infiltrates; however, these have improved since prior study from 10/06/2021. Dictated by: Dictated on workstation # [id number] Dict: 11/27/21 1745 Trans: 11/27/211856 [id number] Interpreted by: DELON EVERETT MD Electronically signed by: DELON EVERETT MD 11/27/211856 NAME: ARNAV GARAY [facility] REC#: [id number] PT STATUS: ADM IN : 1940 PHYSICIAN: EDVIN TEAGUE MD ADMIT DATE: 11/27/21/[facility] Signed Date of Exam:11/28/21 CHEST 1 VIEW, AP/PA ONLY HISTORY: Post thoracentesis. TECHNIQUE: Frontal view of the chest. COMPARISON: 11/27/2021. FINDINGS: There is airspace consolidation in the right upper lobe and in the lung bases. Overall aeration appears mildly improved on the right and mildly decreased on the left. No large effusion or pneumothorax is seen. The cardiac silhouette is normal in size. IMPRESSION: 1. The right pleural effusion is improved. No pneumothorax. 2. Bilateral airspace opacities consistent with infection. Dictated by: Dictated on workstation # [id number] Dict: 11/28/211905 Trans: 11/28/211927 [facility] [id number] Interpreted by: BAKARI YEUNG MD Electronically signed by: BAKARI YEUNG MD 11/28/211927 ECG Impression ECG Initial ECG Impression: Atrial Fibrillation A/P-Cardiology Assessment/Admission Diagnosis Pneumonia with sepsis - management per medical services Acute on chronic resp failure - management per medical services Pleural effusion - s/p right thoracentesis on 11-28-[address] Teague (1600ml drained) HFpEF - echocardiogram of 10-06-[address] Ford showed LVEF 55-60%. Grade 1 diastolic dysfunction COPD - h/o tobaccoism - quit 4 yrs ago PAF - previously on xarelto for stroke prophylaxis - currently on Eliquis HTN HLD Discussion and Recomendations Pneumonia with sepsis - management per medical services Acute on chronic resp failure likely multi-factorial - pneumonia, acute on chronic exacerbation of COPD, acute on chronic diastolic CHF PAF - currently a-fib - rate not well controlled - increase Cardizem CD to 240mg - continue OAC for stroke prophylaxis Monitor lab closely Replace electrolytes as indicated Further recs will be based on his hospital course We would like to thank medical services for this consult LEMUEL BALL Nov 29, 2021 08:39
[2021-11-29] MEDS ORDERED: NON-FORMULARY MEDICATION 1 EA EA (Lactobacillus Rhamnosus GG (Culturelle) 1 EACH) PO SCH (09:00)
[2021-11-29] MEDS: ACETAMINOPHEN 325 MG TABLET PO SCH (09:18)
[2021-11-29] MEDS: APIXABAN 5 MG (ELIQUIS) TABLET PO SCH ×2 (09:18→21:49)
[2021-11-29] MEDS: LACTOBACILLUS ACIDOPHILUS (PROBIOTIC) CAPSULE PO SCH (09:18)
[2021-11-29] MEDS: predniSONE 5 MG TAB PO SCH (09:18)
[2021-11-29] MEDS: PANTOPRAZOLE 40 MG (PROTONIX) TAB PO SCH ×2 (09:21→14:41)
[2021-11-29] MEDS: TAMSULOSIN 0.4 MG (FLOMAX) CAP PO SCH ×2 (09:21→14:41)
--- NOTE | 2021-11-29 10:50 | Pulmonary Consultation ---
History of Present Illness History of Present Illness Date Seen by Provider: Nov 29, 2021 Time Seen by Provider: 09:30 Date of Admission 11/28/21 History of Present Illness He is a 81-year-old male with past medical history of severe chronic obstructive pulmonary disease on home oxygen, diastolic congestive heart failure and paroxysmal atrial fibrillation, history of for anemia due to gastritis and bleeding peptic ulcer for which he was recently investigated with colonoscopy and EGD and placed on PPIs. He was admitted about a month ago in this hospital and has worked up. Now he is presented via emergency room with increasing shortness of breath and leg swelling and his oxygen saturation found to be in low 80s. He was placed on supplemental oxygen to improve his oxygen saturation. A chest x-ray and a CT of the chest done which showed bilateral pleural effusion right more than the left with bilateral multifocal infiltrates right upper lobe predominantly with the scattered infiltrates in the left side and the right middle lobe. The CT appearance of the infiltrate on the right upper lobe looks more of a chronic infiltrate probably fibrosis with superimposed pneumonia. Patient underwent right thoracentesis and removed 1600 cc of pleural fluid. Pleural fluid analysis is consistent with a transudate. He is pro calcitonin is slightly increasing. He denied any fever, chills or rigors. He is started on IV antibiotics and her diuretics as well as supplemental oxygen. He is on a low-dose prednisone chronically for his COPD in addition to bronchodilators. Today I am unable to visualize the patient via video due to lack of Wi-Fi in the hospital according to the nurse. However I have obtained history and information regarding physical findings from the RN. Allergies and Home Medications Allergies Coded Allergies: Penicillins (Unverified Allergy, Mild, RASH, 12/23/06) Home Medications Albuterol Sulfate 2.5 Mg/0.5 Ml Vial.neb, 2.5 MG INH Q6H PRN for SHORTNESS OF BREATH, (Reported) Atorvastatin Calcium 40 Mg Tablet, 40 MG PO HS, (Reported) Bumetanide 1 Mg Tablet, 1 MG PO DAILY, (Reported) Diltiazem HCl 180 Mg Tab.er.24h, 180 MG PO 0600, (Reported) Fluticasone/Salmeterol 12 Gm Hfa.aer.ad, 2 PUFF IH BID, (Reported) Lactobacillus Rhamnosus GG 1 Each Capsule, 1 EACH PO DAILY, (Reported) Levothyroxine Sodium 125 Mcg Tablet, 125 MCG PO 0600, (Reported) Montelukast Sodium 10 Mg Tablet, 10 MG PO HS, (Reported) Pantoprazole Sodium 40 Mg Tablet.dr, 40 MG PO 0800,1400, (Reported) Prednisone 5 Mg Tablet, 5 MG PO DAILY, (Reported) Sucralfate 1 Gm Tablet, 1 GM PO ACHS, (Reported) CRUSH AND PUT IM PUDDING OR APPLESAUCE Tamsulosin HCl 0.4 Mg Cap, 0.4 MG PO 0800,1400, (Reported) Past Medical/Social/Family Hx Patient Social History Tobacco Use?: No Smoking Status: Former Smoker Substance use?: No Alcohol Use?: No Pt stated abuse/neglect: No Immunizations Up To Date Influenza Vaccine Up-to-Date: No; Not Current Tetanus Booster (TDap): More Than 5 Years Hepatitis A: No Hepatitis B: No TB Skin Test: None Current Status Advance Directives: Yes Advance Directive Location: Family to bring in copy Communicates: Verbally Primary Language: Djib[place]ian Preferred Spoken Language: [place]ian Is interpretation needed?: No Sensory deficits: Vision impairment Implanted or Applied Medical D: None Review of Systems Constitutional: see HPI Other ROS PER RN Sepsis Event Evaluation Height, Weight, BMI Height: '" Weight: lbs. oz. kg; 31.23 BMI Method: Exam Exam Patient acknowledged, consented, and participated in this virtual visit. Vital Signs Date Time Temp Pulse Resp B/P (MAP) Pulse Ox O2 Delivery O2 Flow Rate FiO2 11/29/21 10:12 96 Nasal Cannula 3.00 11/29/21 08:00 37.0 125 25 136/71 (92) 97 High Flow N/C 3.00 11/29/21 07:10 99 Nasal Cannula 4.00 11/29/21 07:00 105 11/29/21 04:51 High Flow N/C 4.00 11/29/21 03:53 36.8 101 20 106/52 (70) 93 Nasal Cannula 2.00 11/29/21 02:36 97 Nasal Cannula 4.00 11/29/21 01:00 92 11/28/21 23:45 36.4 93 24 130/66 (87) 94 Nasal Cannula 2.00 11/28/21 22:51 99 Nasal Cannula 4.00 11/28/21 20:00 94 Nasal Cannula 2.00 11/28/21 19:21 99 Nasal Cannula 2.00 11/28/21 19:00 105 11/28/21 16:00 102 17 137/85 (102) 96 Nasal Cannula 2.00 11/28/21 14:30 95 Nasal Cannula 2.00 11/28/21 12:50 10 11/28/21 12:00 36.7 113 24 112/79 (90) 97 Nasal Cannula 2.00 I & O 11/29/21 07:00 Intake Total 1140 ml Output Total 850 ml Balance 290 ml Height & Weight Height: '" Weight: lbs. oz. kg; 31.23 BMI Method: General Appearance: No Apparent Distress, WD/WN HEENT: PERRL/EOMI, Pharynx Normal Neck: Normal Inspection, Supple Respiratory: No Respiratory Distress, Decreased Breath Sounds, Wheezing Cardiovascular: Regular Rate, Rhythm, No Edema, No Murmur Capillary Refill: Less Than 3 Seconds Gastrointestinal: normal bowel sounds, non tender, soft Extremity: Normal Inspection, Non Tender, No Pedal Edema Neurologic/Psychiatric: Alert, Oriented x3, Motor Weakness Skin: Normal Color, Warm/Dry Other comments PE PER RN Results Lab Laboratory Tests 11/27/21 16:25 11/28/21 04:55 11/29/21 06:15 Assessment/Plan Assessment/Plan 1. Acute on chronic respiratory failure secondary to decompensation of diastolic congestive heart failure causing bilateral pleural effusion. 2. COPD exacerbation 3. Possible pneumonia with underlying pulmonary fibrosis 4. History of paroxysmal atrial fibrillation 5. Chronic blood loss anemia for which he was transfused a month ago. 6. Recurrent pneumonia probably due to underlying severe COPD along with recurrent decompensated diastolic congestive heart failure. Recommendations. 1. Agree with current antibiotic therapy. 2. Minimize IV fluids and give diuretics per cardiology service 3. Continue bronchodilator therapy 4. We will get a serum protein electrophoresis to see whether he has underlying immunodeficiency 5. Suggest oral iron therapy to improve anemia to get hemoglobin over 10 g%. 6. Suggest pulmonary rehab as an outpatient. 7. Check daily weight at home and if his weight increases more than 5 pounds from baseline I would suggest to add Zaroxolyn to prevent decompensation of c ongestive heart failure. 8. Anticoagulant therapy per cardiology service to prevent stroke while mo nitoring hemoglobin closely. Critical Care: Critically Ill Patient Time spent with patient (mins): 40 ROBERTA ANGELA MD Nov 29, 2021 10:50
[2021-11-29] MEDS ORDERED: VANCOMYCIN 750 MG/NS 250 ML IVPB IV SCH ×2 (11:00)
[2021-11-29 11:29] VITALS: BP 112/52
--- NOTE | 2021-11-29 11:54 | Progress Note - Hospitalist ---
Subjective HPI/CC On Admission Date Seen by Provider: Nov 29, 2021 Time Seen by Provider: 09:55 Bharat Webber is an 81 year old male with PMH HTN, HLD, AFib, HFpEF, COPD on home oxygen 2 L with activity, BPH with chronic indwelling corbett, iron defieicency anemia, recent GI bleed due to gastric ulcer, who presented with shortness of breath. He has been feeling more weak over the past few days. He has been getting short of breath with minimal activity. He denies fevers and chills. He has been coughing. He denies chest pain. He denies abdominal pain. He denies nausea and vomiting. He has not noticed any swelling. Subjective/Events-last exam He is feeling better today. He is still feeling weak. He is not short of breath. He denies pain. Focused Exam Lactate Level 11/27/21 16:25: Lactic Acid Level 2.13*H 11/27/21 18:40: Lactic Acid Level 1.45 Objective Exam Vital Signs Vital Signs Date Time Temp Pulse Resp B/P (MAP) Pulse Ox O2 Delivery O2 Flow Rate FiO2 11/29/21 11:29 37.1 96 14 112/52 (72) 95 High Flow N/C 3.00 11/27/21 20:30 32 Capillary Refill : Less Than 3 Seconds General Appearance: No Apparent Distress, Chronically ill, Obese Respiratory: No Respiratory Distress, Decreased Breath Sounds, Wheezing Cardiovascular: No Murmur, Irregularly Irregular Gastrointestinal: Normal Bowel Sounds, Soft Extremity: Normal Inspection, Pedal Edema Neurologic/Psychiatric: Alert, Motor Weakness Skin: Normal Color, Warm/Dry Results/Procedures Lab Laboratory Tests 11/29/21 06:15 Patient resulted labs reviewed. Imaging: Reviewed Imaging Films, Reviewed Imaging Report Assessment/Plan Assessment and Plan Assess & Plan/Chief Complaint Pneumonia Acute on chronic respiratory failure with hypoxia Pleural effusions Supplemental oxygen as needed Procalcitonin remains low Continue Cefepime Surgery following s/p thoracentesis Consult pulmonology Iron deficiency anemia Infed HFpEF Holding diuretics COPD BPH Hypothyroidism AFib Continue home meds Debility PT/OT DVT prophylaxis: Lovenox Severe sepsis, resolved Lactic acidosis, resolved Diagnosis/Problems Diagnosis/Problems (1) Severe sepsis Status: Resolved Resolution Date/Time: 11/29/21 @ 11:54 (2) Lactic acidosis Status: Resolved Resolution Date/Time: 11/29/21 @ 11:54 (3) Recurrent pneumonia Status: Acute (4) Acute on chronic respiratory failure with hypoxemia Status: Acute (5) Debility Status: Acute (6) Chronic heart failure with preserved ejection fraction (HFpEF) Status: Chronic (7) COPD (chronic obstructive pulmonary disease) Status: Chronic (8) Anemia Status: Chronic Qualifiers: Anemia type: iron deficiency (9) Paroxysmal atrial fibrillation Status: Chronic (10) Primary hypertension Status: Chronic (11) Mixed hyperlipidemia Status: Chronic (12) Obesity Status: Chronic KIEL ESCOBAR MD Nov 29, 2021 11:54
[2021-11-29] MEDS ORDERED: diphenhydrAMINE 50 MG/ML INJ (BENADRYL) IV PRN (12:00)
[2021-11-29] MEDS ORDERED: HYDROCORTISONE 100 MG/2 ML (Solu-CORTEF) VIAL IV PRN (12:00)
[2021-11-29] MEDS ORDERED: RT-ALBUTEROL SULF 2.5 MG/3 ML PRE-MIX VIAL IH PRN (12:00)
[2021-11-29] MEDS ORDERED: IRON DEXTRAN INJECTION 1,000 MG in NS (IVPB) 250 ML IV ONE (12:00)
[2021-11-29] MEDS ORDERED: EPINEPHrine INJECTION 1 MG/ML AMP IM PRN (12:00)
[2021-11-29] MEDS ORDERED: IRON DEXTRAN INJECTION 25 MG in NS (IVPB) 5.75 ML IV ONE (12:00)
[2021-11-29] MEDS: NS IV 500 ML 500 ML IV SCH (14:40)
[2021-11-29 15:15] VITALS: BP 134/71
--- NOTE | 2021-11-29 17:21 | Consultation-Cardiology ---
HPI-Cardiology Cardiology Consultation: Date of Consultation 11/29/21 Time Seen by a Provider: 12:40 Date of Admission Attending Physician Kiel Escobar MD Admitting Physician Molly Flores MD Consulting Physician ANJUM FARMER MD, MA, FACP, FACC, FSCAI, CCDS HPI: Chief Complaint: Progressive shortness of breath Mr. Webber is an 81 yr old male admitted to [facility] from the ED. He reports increasing SOB over the course of the last several days. Per ED records at the time of EMS arrival his O2 sats were in the 80's. He denies any c/o CP, palpitations, syncope or near syncope. He reports he has chronic bilat LE swelling which he feels has been better than before. He reports he had fluid drained off his lungs yesterday and feels his breathing has improved. No c/o n/v/d. No c/o fever or chills. Review of Systems-Cardiology Review of Systems Constitutional: No chills, No fever; malaise Eyes: No vision change Ears/Nose/Throat: No epistaxis, No recent hearing loss Respiratory: As described under HPI Cardiovascular: As described under HPI Gastrointestinal: No constipation, No diarrhea, No nausea, No vomiting Genitourinary: no symptoms reported Musculoskeletal: joint pain Skin: No rash on exposed areas, No ulcerations on exposed areas Psychiatric/Neurological: No anxiety, No depression, No seizure, No focal weakness, No syncope Hematologic: No bleeding abnormalities [id number]-Brsacy Hx Patient Social History Smoking Status: Former Smoker Have you traveled recently?: No Alcohol Use?: No Pt feels they are or have been: No Past Medical History PMH As described under Assessment. Family Medical History Family Medical History: The patient does not know of any family history of premature coronary artery disease in first-degree relatives. Allergies and Home Medications Allergies Coded Allergies: Penicillins (Unverified Allergy, Mild, RASH, 12/23/06) Patient Home Medication List Home Medication List Reviewed: Yes Albuterol Sulfate (Albuterol Sulfate) 2.5 Mg/0.5 Ml Vial.neb, 2.5 MG INH Q6H PRN for SHORTNESS OF BREATH, (Reported) Entered as Reported by: DIANE SUMMERS on 11/28/21 1210 Last Action: Held Atorvastatin Calcium (Atorvastatin Calcium) 40 Mg Tablet, 40 MG PO HS, (Reported) Entered as Reported by: DIANE SUMMERS on 11/28/211209 Last Action: Continued Bumetanide (Bumetanide) 1 Mg Tablet, 1 MG PO DAILY, (Reported) Entered as Reported by: DIANE SUMMERS on 11/28/211209 Last Action: Held Diltiazem HCl (Diltiazem ER) 180 Mg Tab.er.24h, 180 MG PO 0600, (Reported) Entered as Reported by: DIANE SUMMERS on 11/28/211209 Last Action: Converted Fluticasone/Salmeterol (Advair Hfa 230-21 Mcg Inhaler) 12 Gm Hfa.aer.ad, 2 PUFF IH BID, (Reported) Entered as Reported by: DIANE SUMMERS on 11/28/211209 Last Action: Converted Lactobacillus Rhamnosus GG (Culturelle) 1 Each Capsule, 1 EACH PO DAILY, (Reported) Entered as Reported by: DIANE SUMMERS on 11/28/211209 Last Action: Converted Levothyroxine Sodium (Levothyroxine Sodium) 125 Mcg Tablet, 125 MCG PO 0600, (Reported) Entered as Reported by: DIANE SUMMERS on 11/28/21 124 Last Action: Continued Montelukast Sodium (Montelukast Sodium) 10 Mg Tablet, 10 MG PO HS, (Reported) Entered as Reported by: DIANE SUMMERS on 11/28/211209 Last Action: Continued Pantoprazole Sodium (Pantoprazole Sodium) 40 Mg Tablet.dr, 40 MG PO 0800,1400, (Reported) Entered as Reported by: DIANE SUMMERS on 11/28/211209 Last Action: Continued Prednisone (Prednisone) 5 Mg Tablet, 5 MG PO DAILY, (Reported) Entered as Reported by: DIANE SUMMERS on 10/29/21 1105 Last Action: Continued Sucralfate (Carafate) 1 Gm Tablet, 1 GM PO ACHS, (Reported) Entered as Reported by: DIANE SUMMERS on 11/28/211209 Last Action: Continued Tamsulosin HCl (Flomax) 0.4 Mg Cap, 0.4 MG PO 0800,1400, (Reported) Entered as Reported by: DIANE SUMMERS on 11/28/211209 Last Action: Continued Discontinued Medications Atorvastatin Calcium (Lipitor) 40 Mg Tablet, 40 MG PO HS Discontinued Reason: Duplicate Order Prescribed by: KIEL ESCOBAR on 10/31/211499 Last Action: Discontinued Bumetanide (Bumetanide) 1 Mg Tablet, 1 MG PO DAILY Discontinued Reason: Duplicate Order Prescribed by: KIEL ESCOBAR on 10/31/21 151 Last Action: Discontinued Diltiazem HCl (Diltiazem ER) 180 Mg Capsule.er, 180 MG PO DAILY Discontinued Reason: Duplicate Order Prescribed by: KIEL ESCOBAR on 10/31/211499 Last Action: Discontinued Fluticasone/Salmeterol (Advair Hfa 230-21 Mcg Inhaler) 12 Gm Hfa.aer.ad, 2 PUFF IH BID Discontinued Reason: Duplicate Order Prescribed by: KIEL ESCOBAR on 10/31/21 1452 Last Action: Discontinued Levothyroxine Sodium (Levothyroxine Sodium) 112 Mcg Tablet, 112 MCG PO DAILY Discontinued Reason: No Longer Taking Prescribed by: FRANCISCO BHAKTA on 10/25/21 0604 Last Action: Discontinued Menthol/Lanolin/Calamine/Znox (Calmoseptine Ointment) 71 Gm Oint, 1 APPLIC TP BID, (Reported) Discontinued Reason: No Longer Taking Entered as Reported by: DIANE SUMMERS on 10/29/21 1105 Last Action: Discontinued Montelukast Sodium (Montelukast Sodium) 10 Mg Tablet, 10 MG PO HS Discontinued Reason: Duplicate Order Prescribed by: KIEL ESCOBAR on 10/31/211499 Last Action: Discontinued Pantoprazole Sodium (Pantoprazole Sodium) 40 Mg Tablet.dr, 40 MG PO BID Discontinued Reason: Duplicate Order Prescribed by: KIEL ESCOBAR on 10/31/211499 Last Action: Discontinued Prednisone (Prednisone) 10 Mg Tab.ds.pk, 10 MG PO DAILY Discontinued Reason: Duplicate Order Prescribed by: KIEL ESCOBAR on 11/01/21 1253 Last Action: Discontinued Sucralfate (Sucralfate) 1 Gm Tablet, 1 GM PO ACHS Discontinued Reason: Duplicate Order Prescribed by: KIEL ESCOBAR on 10/31/211499 Last Action: Discontinued Tamsulosin HCl (Flomax) 0.4 Mg Cap, 0.4 MG PO BID Discontinued Reason: Duplicate Order Prescribed by: KIEL ESCOBAR on 1/26/22 1500 Last Action: Discontinued Physical Exam-Cardiology Physical Exam Vital Signs/I&O 11/29/21 11/29/21 11/29/21 11/29/21 07:00 07:10 08:00 08:00 Temp 37.0 Pulse 105 125 Resp 25 B/P (MAP) 136/71 (92) Pulse Ox 99 94 97 O2 Delivery Nasal Cannula High Flow N/C High Flow N/C O2 Flow Rate 4.00 4.00 3.00 11/29/21 11/29/21 11/29/21 11/29/21 10:12 11:29 13:00 14:52 Temp 37.1 Pulse 96 108 Resp 14 B/P (MAP) 112/52 (72) Pulse Ox 96 95 97 O2 Delivery Nasal Cannula High Flow N/C Nasal Cannula O2 Flow Rate 3.00 3.00 3.00 11/29/21 15:15 Temp 36.5 Pulse 99 Resp 15 B/P (MAP) 134/71 (92) Pulse Ox 96 O2 Delivery High Flow N/C O2 Flow Rate 3.00 11/29/21 00:00 Intake Total 840 ml Output Total 500 ml Balance 340 ml Capillary Refill : Less Than 3 Seconds Constitutional: AAO x 3, well-developed, well-nourished HEENT: PERRL, hearing is well preserved Neck: No carotid bruit Respiratory: No accessory muscle use, No respiratory distress; chest expansion is symmetric, chest is bilaterally symmetric, rhonchi (scattered), other (diminished lower lobes bilat) Cardiovascular: irregularly irregular; No JVD; S1 and S2 Gastrointestinal: No tender; soft, round, audible bowel sounds Extremities: other (mild to mod bilat LE swelling) Neurologic/Psychiatric: grossly intact (moves all extremities) Skin: No rash on exposed areas, No ulcerations on exposed areas Data Review Labs Laboratory Tests 11/28/21 18:45: Body Fluid Source PLEURAL, Body Fluid Color PALE YELLOW, Body Fluid Appearance CLEAR, Body Fluid pH , Body Fluid WBC 28, Body Fluid RBC 100, Body Fluid Polynuclear WBCs 52, Body Fluid Mononuclear WBCs 9, Body Fluid Lymphocytes 34, Body Fluid Eosinophils , Body Fluid Other Cells 5, Body Fluid Glucose 107, Body Fluid Total Protein 1.8, Body Fluid Albumin 1.1, Body Fluid Lactate Dehydrogenase 118 11/29/21 06:15: White Blood Count 16.8H, Red Blood Count 2.99L, Hemoglobin 8.8L, Hematocrit 30L, Mean Corpuscular Volume 99, Mean Corpuscular Hemoglobin 29, Mean Corpuscular Hemoglobin Concent 30L, Red Cell Distribution Width 17.0H, Platelet Count 489H, Mean Platelet Volume 9.5, Immature Granulocyte % (Auto) 1, Neutrophils (%) (Auto) 84H, Lymphocytes (%) (Auto) 7L, Monocytes (%) (Auto) 6, Eosinophils (%) (Auto) 2, Basophils (%) (Auto) 0, Neutrophils # (Auto) 14.1H, Lymphocytes # (Auto) 1.1, Monocytes # (Auto) 0.9, Eosinophils # (Auto) 0.3, Basophils # (Auto) 0.1, Immature Granulocyte # (Auto) 0.2H, Neutrophils % (Manual) 86, Lymphocytes % (Manual) 4, Monocytes % (Manual) 3, Eosinophils % (Manual) 2, Basophils % (Manual) 0, Metamyelocytes % 1, Band Neutrophils 4, Polychromasia SLIGHT, Poikilocytosis SLIGHT, Anisocytosis SLIGHT, Sodium Level 138, Potassium Level 4.0, Chloride Level 107, Carbon Dioxide Level 22, Anion Gap 9, Blood Urea Nitrogen 17, Creatinine 0.72, Estimat Glomerular Filtration Rate 92, BUN/Creatinine Ratio 24, Glucose Level 90, Calcium Level 8.1L, Lactate Dehydrogenase 403H, Procalcitonin 0.15H 11/29/21 08:45: Vancomycin Level Trough 21.9H Microbiology 11/28/21 Gram Stain - Final, Resulted 11/28/21 Body Fluid Culture - Preliminary, Resulted No growth 11/27/21 Blood Culture - Preliminary, Resulted No growth A/P-Cardiology Assessment/Admission Diagnosis Pneumonia with sepsis Acute on chronic resp failure - likely multifactorial: ac exac of advanced COPD and probable acute diastolic CHF Pleural effusion - s/p right thoracentesis on 11-28-[address] Teague (1600ml drained) - fluid appears transudative HFpEF - echocardiogram of 10-06-[address] Ford showed LVEF 55-60%. Grade 1 diastolic dysfunction COPD - h/o tobaccoism - quit 4 yrs ago PAF - previously on Xarelto for stroke prophylaxis - currently on Eliquis HTN HLD Discussion and Recomendations Complex management due to multiple comorbidities (see above) OAC for rate control Titrate oral Cardizem CD for vent rate control Med svces managing ac resp failure and sepsis Monitor lab closely Replace electrolytes as indicated Further recs will be based on his hospital course We would like to thank Medical services for this consult ANJUM FARMER MD FACP FACC CCDS Nov 29, 2021 17:21
[2021-11-29 20:00] VITALS: BP 124/62
[2021-11-29] MEDS: MONTELUKAST 10 MG (SINGULAIR) TAB PO SCH (21:49)
[2021-11-30] MEDS: CEFEPIME 1,000 MG/NS 50 ML IVPB IV SCH ×8 (01:56→17:53)
[2021-11-30] MEDS: RT-ALBUTEROL/IPRATROPIUM 3 ML (DUONEB) VIAL INH SCH ×6 (02:12→21:45)
[2021-11-30 05:17] LABS: POTASSIUM 3.8 MMOL/L (3.6-5.0)
[2021-11-30 05:19] LABS: CALCIUM 8.3 MG/DL (8.5-10.1)
[2021-11-30 05:23] LABS: CREATININE SERUM 0.76 MG/DL (0.60-1.30)
[2021-11-30] MEDS: LEVOTHYROXINE 125 MCG (LEVOTHROID) TABLET PO SCH (05:59)
[2021-11-30] MEDS: NS IV 500 ML 500 ML IV SCH (05:59)
[2021-11-30] MEDS: SUCRALFATE 1 GM (CARAFATE) TAB PO SCH ×4 (05:59→21:35)
[2021-11-30 06:41] VITALS: BP 124/62
[2021-11-30] MEDS: RT--FLUTICASONE/SALMETEROL 232-14 (AIRDUO RespiCLICK) IH SCH ×2 (06:41→21:45)
[2021-11-30 08:23] VITALS: BP 140/70
--- NOTE | 2021-11-30 08:45 | Progress Note - Cardiology ---
Cardiology SOAP Progress Note Subjective: Lying in bed No c/o CP or palpitations Feels SOB is better Objective: I&O/Vital Signs 12/02/21 12/02/21 12/03/21 12/03/21 21:32 23:41 01:15 02:27 Temp 36.3 Pulse 100 91 Resp 20 B/P (MAP) 118/61 (80) Pulse Ox 98 92 96 O2 Delivery Nasal Cannula High Flow N/C Nasal Cannula O2 Flow Rate 3.00 3.00 3.00 12/03/21 12/03/21 12/03/21 04:14 07:00 08:16 Temp 36.3 Pulse 107 106 Resp 25 B/P (MAP) 118/65 (82) Pulse Ox 94 95 O2 Delivery High Flow N/C Nasal Cannula O2 Flow Rate 3.00 3.00 12/03/21 00:00 Intake Total 1050 ml Output Total 3000 ml Balance -1950 ml Constitutional: AAO x 3, well-developed, well-nourished Respiratory: No accessory muscle use, No respiratory distress; chest expansion is symmetric, chest is bilaterally symmetric, rhonchi (scattered), other (diminished lower lobes bilat) Cardiovascular: irregularly irregular; No JVD; S1 and S2 Gastrointestional: No tender; soft, round, audible bowel sounds Extremities: other (mild to mod bilat LE swelling) Neurologic/Psychiatric: grossly intact (moves all extremities) Skin: No rash on exposed areas, No ulcerations on exposed areas Results/Procedures: Labs Laboratory Tests 12/03/21 06:40: Sodium Level 137, Potassium Level 3.9, Chloride Level 104, Carbon Dioxide Level 23, Anion Gap 10, Blood Urea Nitrogen 31H, Creatinine 0.89, Estimat Glomerular Filtration Rate 87, BUN/Creatinine Ratio 35, Glucose Level 100, Calcium Level 8.1L Microbiology 11/28/21 Gram Stain - Final, Complete 11/28/21 Body Fluid Culture - Final, Complete No growth 11/27/21 Blood Culture - Preliminary, Resulted No growth A/P: Assessment: Pneumonia with sepsis Acute on chronic resp failure - likely multifactorial: ac exac of advanced COPD and probable acute diastolic CHF Pleural effusion - s/p right thoracentesis on 11-28-[address] Teague (1600ml drained) - fluid a ppears transudative HFpEF - echocardiogram of 10-06-[address] Ford showed LVEF 55-60%. Grade 1 diastolic dysfunction COPD - h/o tobaccoism - quit 4 yrs ago PAF - previously on Xarelto for stroke prophylaxis - currently on Eliquis HTN HLD Plan: Complex management due to multiple comorbidities (see above) OAC for rate control Titrate oral Cardizem CD for vent rate control Med svces managing ac resp failure and sepsis Monitor lab closely Replace electrolytes as indicated LEMUEL BALL Nov 30, 2021 08:45
[2021-11-30] MEDS: LACTATED RINGERS 1,000 ML IV SCH (09:30)
[2021-11-30] MEDS: predniSONE 5 MG TAB PO SCH (09:30)
[2021-11-30] MEDS: ACETAMINOPHEN 325 MG TABLET PO SCH (09:30)
[2021-11-30] MEDS: APIXABAN 5 MG (ELIQUIS) TABLET PO SCH ×2 (09:30→21:35)
[2021-11-30] MEDS: LACTOBACILLUS ACIDOPHILUS (PROBIOTIC) CAPSULE PO SCH (09:30)
[2021-11-30] MEDS: PANTOPRAZOLE 40 MG (PROTONIX) TAB PO SCH ×2 (09:33→14:33)
[2021-11-30] MEDS: TAMSULOSIN 0.4 MG (FLOMAX) CAP PO SCH ×2 (09:33→14:33)
--- NOTE | 2021-11-30 10:03 | Progress Note ---
Subjective Date Seen by a Provider: Nov 30, 2021 Time Seen by a Provider: 09:30 Subjective/Events-last exam doing ok. still has some SOB however baseline. no cough/sputum. no fever/chills. Focused Exam Lactate Level 11/27/21 16:25: Lactic Acid Level 2.13*H 11/27/21 18:40: Lactic Acid Level 1.45 Objective Exam Vital Signs Date Time Temp Pulse Resp B/P (MAP) Pulse Ox O2 Delivery O2 Flow Rate FiO2 11/30/21 08:23 36.8 112 24 140/70 (93) 94 Nasal Cannula 2.00 11/30/21 07:00 112 11/30/21 06:41 36.0 100 94 11/30/21 06:38 94 Nasal Cannula 2.00 11/30/21 04:00 36.8 11/30/21 02:12 91 Nasal Cannula 2.00 11/30/21 01:00 100 11/30/21 00:00 36.0 11/29/21 20:00 36.9 97 22 124/62 (82) 95 Nasal Cannula 2.00 11/29/21 20:00 94 High Flow N/C 4.00 11/29/21 19:00 96 11/29/21 18:28 95 Nasal Cannula 2.00 11/29/21 15:15 36.5 99 15 134/71 (92) 96 High Flow N/C 3.00 11/29/21 14:52 97 Nasal Cannula 3.00 11/29/21 13:00 108 11/29/21 11:29 37.1 96 14 112/52 (72) 95 High Flow N/C 3.00 11/29/21 10:12 96 Nasal Cannula 3.00 I & O 11/30/21 07:00 Intake Total 3616.25 ml Output Total 2050 ml Balance 1566.25 ml Capillary Refill : Less Than 3 Seconds General Appearance: No Apparent Distress HEENT: PERRL/EOMI Neck: Full Range of Motion Respiratory: Decreased Breath Sounds, Rhonci Cardiovascular: Regular Rate, Rhythm Extremity: Normal Capillary Refill Neurologic/Psychiatric: Alert, Oriented x3 Skin: Normal Color Lymphatic: No Adenopathy Results Lab Laboratory Tests 11/30/21 04:45: Sodium Level 134L, Potassium Level 3.8, Chloride Level 105, Carbon Dioxide Level 20L, Anion Gap 9, Blood Urea Nitrogen 15, Creatinine 0.76, Estimat Glomerular Filtration Rate 91, BUN/Creatinine Ratio 20, Glucose Level 97, Calcium Level 8.3L Microbiology 11/28/21 Gram Stain - Final, Resulted 11/28/21 Body Fluid Culture - Preliminary, Resulted No growth 11/27/21 Blood Culture - Preliminary, Resulted No growth Assessment/Plan Assessment/Plan Assess & Plan/Chief Complaint CHF, diastolic dysfunction, right pl eff s/p thoracentesis. if worsening resp status then follow cxr. EDVIN MARROQUIN MD Nov 30, 2021 10:03
[2021-11-30] MEDS ORDERED: methylPREDNISolone 125 MG (Solu-MEDROL) VIAL IVP NR (11:00)
--- NOTE | 2021-11-30 11:08 | Tele-ICU Progress Note ---
Subjective Date Seen by a Provider: Nov 30, 2021 Time Seen by a Provider: 10:35 Subjective/Events-last exam Subjectively feels betterPt out of bed needing 5 LPM w exertion. S/P 1600 ml thoracentesis, transudative.. Connected w pt via iPAD. PE: Obese. Appears chronically ill. VSS Irreg Chest exam w diminished breath sounds, B wheezing. Bal in place. Trace periph edema. A/P ezac of COPD and diast. HF. Cont BDs, Airduo, abx, diuretics. Will add one dose of Solumedrol 125 mg IV. Could have further 60 mg doses if warranted on subsequent days. Explained to KATHY Ward and patient. Encouraged call back to my cell or eICU if problems. . Sepsis Event Evaluation Height, Weight, BMI Height: '" Weight: lbs. oz. kg; 31.23 BMI Method: Focused Exam Lactate Level 11/27/21 16:25: Lactic Acid Level 2.13*H 11/27/21 18:40: Lactic Acid Level 1.45 Exam Exam Patient acknowledged, consented, and participated in this virtual visit which was conducted using real time audio/video Vital Signs Date Time Temp Pulse Resp B/P (MAP) Pulse Ox O2 Delivery O2 Flow Rate FiO2 11/30/21 10:32 92 Nasal Cannula 4.00 11/30/21 08:23 36.8 112 24 140/70 (93) 94 Nasal Cannula 2.00 11/30/21 08:00 94 High Flow N/C 4.00 11/30/21 07:00 112 11/30/21 06:41 36.0 100 94 11/30/21 06:38 94 Nasal Cannula 2.00 11/30/21 04:00 36.8 11/30/21 02:12 91 Nasal Cannula 2.00 11/30/21 01:00 100 11/30/21 00:00 36.0 11/29/21 20:00 36.9 97 22 124/62 (82) 95 Nasal Cannula 2.00 11/29/21 20:00 94 High Flow N/C 4.00 11/29/21 19:00 96 11/29/21 18:28 95 Nasal Cannula 2.00 11/29/21 15:15 36.5 99 15 134/71 (92) 96 High Flow N/C 3.00 11/29/21 14:52 97 Nasal Cannula 3.00 11/29/21 13:00 108 11/29/21 11:29 37.1 96 14 112/52 (72) 95 High Flow N/C 3.00 I & O 11/30/21 07:00 Intake Total 3616.25 ml Output Total 2050 ml Balance 1566.25 ml Height & Weight Height: '" Weight: lbs. oz. kg; 31.23 BMI Method: General Appearance: No Apparent Distress HEENT: PERRL/EOMI Neck: Full Range of Motion Respiratory: Decreased Breath Sounds, Rhonci Cardiovascular: Regular Rate, Rhythm Capillary Refill: Less Than 3 Seconds Gastrointestinal: normal bowel sounds, non tender, soft Extremity: Normal Capillary Refill Neurologic/Psychiatric: Alert, Oriented x3 Skin: Normal Color Lymphatic: No Adenopathy Results Lab Laboratory Tests 11/29/21 06:15 11/30/21 04:45 Assessment/Plan Assessment/Plan See free text Critical Care: Critically Ill Patient MIKAYLA RICHARDS MD Nov 30, 2021 11:08
--- NOTE | 2021-11-30 11:15 | Physical Therapy Evaluation ---
PT Evaluation-General Medical Diagnosis Admission Date Nov 27, 2021 at 18:00 Medical Diagnosis: sepsis, PNA Onset Date: Nov 27, 2021 Therapy Diagnosis Therapy Diagnosis: impaired mobility, strength Precautions Precautions/Isolations: Fall Prevention, Standard Precautions, Pressure Ulcer Referral Physician: Elías Reason for Referral: Evaluation/Treatment Medical History Pertinent Medical History: Atrial Fib, HTN, Hypothroidism Additional Medical History PMH HTN, HLD, AFib, HFpEF, COPD Reviewed History: Yes Social History Home: Single Level Current Living Status: Spouse Entry Into Home: Level Entry Prior Prior Level of Function SCALE: Activities may be completed with or without assistive devices. 3-Zgzmizixxq-qiergqs completes the activity by him/herself with no assistance from a helper. 5-Set-up or Clean-up Assistance-helper sets up or cleans up; patient completes activity. [place] assists only prior to or following the activity. 4-Supervision or Touching Assistance-helper provides verbal cues and/or touching/steadying and/or contact guard assistance as patient completes activity. Assistance may be provided throughout the activity or intermittently. 3-Partial/Moderate Assistance-helper does LESS THAN HALF the effort. [place] lifts, holds or supports trunk or limbs, but provides less than half the effort. 2-Substantial/Maximal Assistance-helper does MORE THAN HALF the effort. [place] lifts or holds trunk or limbs and provides more than half the effort. 0-Ypkwliwxv-lwmhde does ALL the effort. Patient does none of the effort to complete the activity. Or, the assistance of 2 or more helpers is required for the patient to complete the activity. If activity was not attempted, code reason: 7-Patient Refused. 9-Not Applicable-not attempted and the patient did not perform the activity before the current illness, exacerbation or injury. 10-Not Attempted due to Environmental Limitations-(lack of equipment, weather restraints, etc.). 88-Not Attempted due to Medical Conditions or Safety Concerns. Bed Mobility: 6 Transfers (B,C,W/C): 6 Gait: 6 Indoor Mobility (Ambulation): Independent Prior Devices Use: Walker PT Evaluation-Current Subjective Patient in bed pre tx, agrees to PT, has no complaints of pain. Pt/Family Goals "to breathe better" Objective Patient Orientation: Person, Place, Situation Attachments: Oxygen, Bal Catheter ROM/Strength ROM Lower Extremities WNL Strength Lower Extremities LLE (hip flexion 3+/5, knee flexion 4/5, knee extension 4/5, dorsiflexion 4/5), RLE (hip flexion 3+/5, knee flexion 4/5, knee extension 4/5, dorsiflexion 4/5) Sensory Hearing: Functional Sensation Right Lower Extremit: Intact Sensation Left Lower Extremity: Intact Transfers Roll Left to Right (QC): 6 Lying to Sitting/Side of Bed(Q: 3 Sit to Stand (QC): 4 Chair/Ezf-lb-Tcnmo Xfer(QC): 4 Patient stands with CGA and takes a few steps to the recliner and sits, he is very SOB after this and his pulse oximeter wont read, respiratory therapy enters room and they have another one, O2 is 89% and they turn his O2 up to 5 or 6 liters and it goes to 92%. Balance Sitting Static: Normal Sitting Dynamic: Normal Standing Static: Good Standing Dynamic: Good Treatment BLE exercises (seated) x20 (AP, LAQ) Assessment/Needs Patient in recliner post tx with nurse call, phone, tray, all needs met. Patient has impaired mobility, severe SOB with activity. He just needs CGA for transfers but can't ambulate much at this time. Rehab Potential: Fair PT Half-Way Goals Solution Mixer Goals PT Solution Mixer Goals Time Frame: Dec 07, 2021 Roll Left & Right (QC): 6 Sit to Lying (QC): 4 Lying-Sitting on Side/Bed(QC): 4 Sit to Stand (QC): 4 (SBA) Chair/Asg-pk-Xfcmo Xfer(QC): 4 (SBA) Walk 10 feet (QC): 4 Walk 50ft with 2 Turns (QC): 4 PT Plan Problem List Problem List: Activity Tolerance, Functional Strength, Safety, Balance, Gait, Transfer, Bed Mobility, ROM Treatment/Plan Treatment Plan: Continue Plan of Care Treatment Plan: Bed Mobility, Education, Functional Activity Tatiana, Functional Strength, Gait, Safety, Therapeutic Exercise, Transfers Treatment Duration: Dec 07, 2021 Frequency: 6 times per week Estimated Hrs Per Day: .25 hour per day Patient and/or Family Agrees t: Yes Safety Risks/Education Patient Education: Gait Training, Transfer Techniques, Correct Positioning, Safety Issues Teaching Recipient: Patient Teaching Methods: Demonstration, Discussion Response to Teaching: Reinforcement Needed Discharge Recommendations Plan Patient will perform bed mobility and transfer training, balance and endurance training, functional strengthening, gait training, and education, to improve functional mobility and independence at home. Therapy Discharge Recommendati: Scheduled Assistance, Home & Family, Post Acute PT Time/GCodes Time In: 1008 Time Out: 1029 Total Billed Treatment Time: 21 Total Billed Treatment 1 visit NESHA 21' RACHEL KAPOOR PT Nov 30, 2021 11:15
[2021-11-30 12:06] VITALS: BP 135/75
--- NOTE | 2021-11-30 12:50 | Occ Therapy Progress Note ---
Therapy Progress Note Per RN, Pt desatting into low 80's at rest. Request to hold this am. OT will attempt again at a later time if schedule allows. Tamiko Fox OT Nov 30, 2021 12:49
[2021-11-30 15:20] VITALS: BP 134/66
--- NOTE | 2021-11-30 15:22 | Progress Note - Cardiology ---
Cardiology SOAP Progress Note Subjective: Gen malaise and weakness No cp No palp or syncope Shortness of breath with activity is present Denies swelling Denies n/v/d Objective: I&O/Vital Signs 11/30/21 11/30/21 11/30/21 11/30/21 04:00 06:38 06:41 07:00 Temp 36.8 36.0 Pulse 100 112 Pulse Ox 94 94 O2 Delivery Nasal Cannula O2 Flow Rate 2.00 11/30/21 11/30/21 11/30/21 11/30/21 08:00 08:23 10:32 12:06 Temp 36.8 36.5 Pulse 112 100 Resp 24 18 B/P (MAP) 140/70 (93) 135/75 (95) Pulse Ox 94 94 92 88 O2 Delivery High Flow N/C Nasal Cannula Nasal Cannula Nasal Cannula O2 Flow Rate 4.00 2.00 4.00 2.00 11/30/21 11/30/21 12:49 14:47 Pulse 88 Pulse Ox 100 O2 Delivery Nasal Cannula O2 Flow Rate 2.00 11/30/21 00:00 Intake Total 2866.25 ml Output Total 1200 ml Balance 1666.25 ml Constitutional: AAO x 3, well-developed, well-nourished Respiratory: No accessory muscle use, No respiratory distress; chest expansion is symmetric, chest is bilaterally symmetric, rhonchi (scattered), other (diminished lower lobes bilat) Cardiovascular: irregularly irregular; No JVD; S1 and S2 Gastrointestional: No tender; soft, round, audible bowel sounds Extremities: other (mild to mod bilat LE swelling) Neurologic/Psychiatric: grossly intact (moves all extremities) Skin: No rash on exposed areas, No ulcerations on exposed areas Results/Procedures: Labs Laboratory Tests 11/30/21 04:45: Sodium Level 134L, Potassium Level 3.8, Chloride Level 105, Carbon Dioxide Level 20L, Anion Gap 9, Blood Urea Nitrogen 15, Creatinine 0.76, Estimat Glomerular Filtration Rate 91, BUN/Creatinine Ratio 20, Glucose Level 97, Calcium Level 8.3L Microbiology 11/28/21 Gram Stain - Final, Resulted 11/28/21 Body Fluid Culture - Preliminary, Resulted No growth 11/27/21 Blood Culture - Preliminary, Resulted No growth Laboratory Tests 11/29/21 06:15 11/30/21 04:45 A/P: Assessment: Pneumonia with sepsis Acute on chronic resp failure - likely multifactorial: ac exac of advanced COPD and probable acute diastolic CHF Pleural effusion - s/p right thoracentesis on 11-28-[address] Teague (1600ml drained) - fluid appears transudative HFpEF - echocardiogram of 10-06-[address] Ford showed LVEF 55-60%. Grade 1 diastolic dysfunction COPD - h/o tobaccoism - quit 4 yrs ago PAF - previously on Xarelto for stroke prophylaxis - currently on Eliquis HTN HLD Plan: Complex management due to multiple comorbidities (see above) OAC for rate control Titrate oral Cardizem CD for vent rate control Med svces managing ac resp failure and sepsis Monitor lab closely Replace electrolytes as indicated I answered his CV-related questions ANJUM FARMER MD FACP FACC CCDS Nov 30, 2021 15:22
[2021-11-30] MEDS ORDERED: predniSONE 20 MG TAB PO NR (18:00)
--- NOTE | 2021-11-30 18:07 | Progress Note - Hospitalist ---
Subjective HPI/CC On Admission Date Seen by Provider: Nov 30, 2021 Time Seen by Provider: 09:25 Bharat Webber is an 81 year old male with PMH HTN, HLD, AFib, HFpEF, COPD on home oxygen 2 L with activity, BPH with chronic indwelling corbett, iron defieicency anemia, recent GI bleed due to gastric ulcer, who presented with shortness of breath. He has been feeling more weak over the past few days. He has been getting short of breath with minimal activity. He denies fevers and chills. He has been coughing. He denies chest pain. He denies abdominal pain. He denies nausea and vomiting. He has not noticed any swelling. Subjective/Events-last exam He is short of breath. He denies pain. He is still feeling very weak. Focused Exam Lactate Level 11/27/21 18:40: Lactic Acid Level 1.45 Objective Exam Vital Signs Vital Signs Date Time Temp Pulse Resp B/P (MAP) Pulse Ox O2 Delivery O2 Flow Rate FiO2 11/30/21 15:20 37.2 84 24 134/66 (88) 100 High Flow N/C 2.00 11/27/21 20:30 32 Capillary Refill : Less Than 3 Seconds General Appearance: Chronically ill, Obese Respiratory: Decreased Breath Sounds, Respiratory Distress (tachypnea), Wheezing Cardiovascular: No Murmur, Irregularly Irregular Gastrointestinal: Normal Bowel Sounds, Soft Extremity: Normal Inspection, No Pedal Edema Neurologic/Psychiatric: Alert, Depressed Affect Skin: Normal Color, Warm/Dry Results/Procedures Lab Laboratory Tests 11/30/21 04:45 Patient resulted labs reviewed. Imaging: Reviewed Imaging Films, Reviewed Imaging Report Assessment/Plan Assessment and Plan Assess & Plan/Chief Complaint Pneumonia Acute on chronic respiratory failure with hypoxia Pleural effusions COPD exacerbation Supplemental oxygen as needed Continue Cefepime Surgery following s/p thoracentesis Pulmonology following Started on steroids MAT protocol Fluids stopped Iron deficiency anemia s/p Infed HFpEF Holding diuretics COPD BPH Hypothyroidism AFib Continue home meds Debility PT/OT DVT prophylaxis: Lovenox Severe sepsis, resolved Lactic acidosis, resolved Diagnosis/Problems Diagnosis/Problems (1) Severe sepsis Status: Resolved Resolution Date/Time: 11/29/21 @ 11:54 (2) Lactic acidosis Status: Resolved Resolution Date/Time: 11/29/21 @ 11:54 (3) Recurrent pneumonia Status: Acute (4) Acute on chronic respiratory failure with hypoxemia Status: Acute (5) Debility Status: Acute (6) Chronic heart failure with preserved ejection fraction (HFpEF) Status: Chronic (7) COPD (chronic obstructive pulmonary disease) Status: Acute Qualifiers: COPD type: COPD with acute exacerbation Qualified Codes: J44.1 - Chronic obstructive pulmonary disease with (acute) exacerbation (8) Anemia Status: Chronic Qualifiers: Anemia type: iron deficiency (9) Paroxysmal atrial fibrillation Status: Chronic (10) Primary hypertension Status: Chronic (11) Mixed hyperlipidemia Status: Chronic (12) Obesity Status: Chronic KIEL ESCOBAR MD Nov 30, 2021 18:07
[2021-11-30 19:50] VITALS: BP 124/64
[2021-11-30] MEDS: MONTELUKAST 10 MG (SINGULAIR) TAB PO SCH (21:35)
[2021-12-01] VITALS (8 sets, daily range): BP systolic 106–127; BP diastolic 51–69
[2021-12-01] MEDS: CEFEPIME 1,000 MG/NS 50 ML IVPB IV SCH ×8 (00:58→18:24)
[2021-12-01] MEDS: RT-ALBUTEROL/IPRATROPIUM 3 ML (DUONEB) VIAL INH SCH ×6 (02:32→21:47)
[2021-12-01 05:14] LABS: POTASSIUM 3.8 MMOL/L (3.6-5.0)
[2021-12-01 05:15] LABS: CALCIUM 8.2 MG/DL (8.5-10.1)
[2021-12-01 05:19] LABS: CREATININE SERUM 0.71 MG/DL (0.60-1.30)
[2021-12-01] MEDS: predniSONE 20 MG TAB PO SCH (06:42)
[2021-12-01] MEDS: SUCRALFATE 1 GM (CARAFATE) TAB PO SCH ×4 (06:42→21:02)
[2021-12-01] MEDS: LEVOTHYROXINE 125 MCG (LEVOTHROID) TABLET PO SCH (06:42)
[2021-12-01] MEDS: RT--FLUTICASONE/SALMETEROL 232-14 (AIRDUO RespiCLICK) IH SCH ×2 (07:41→18:12)
--- NOTE | 2021-12-01 09:19 | Physical Therapy Progress Note ---
Therapy Progress Note Patient declined PT due to "fast" HR and not "feeling like it". Will attempt on Friday. 1 ref INOCENCIA WITT PT Dec 01, 2021 09:19
--- NOTE | 2021-12-01 09:21 | Occ Therapy Progress Note ---
Therapy Progress Note Per PT: Patient declines therapy due to "fast" HR and not "feeling like it". Pt does have increased HR, hold today. Will attempt on Friday HERNANDEZ MEDELLIN Dec 01, 2021 09:21
[2021-12-01] MEDS ORDERED: FUROSEMIDE 40 MG/4 ML INJ (LASIX) IVP NR (10:15)
[2021-12-01] MEDS: TAMSULOSIN 0.4 MG (FLOMAX) CAP PO SCH ×2 (10:16→14:11)
[2021-12-01] MEDS: PANTOPRAZOLE 40 MG (PROTONIX) TAB PO SCH ×2 (10:16→14:11)
[2021-12-01] MEDS: APIXABAN 5 MG (ELIQUIS) TABLET PO SCH ×2 (10:16→21:02)
[2021-12-01] MEDS: LACTOBACILLUS ACIDOPHILUS (PROBIOTIC) CAPSULE PO SCH (10:16)
[2021-12-01] MEDS: ACETAMINOPHEN 325 MG TABLET PO SCH (10:16)
--- NOTE | 2021-12-01 11:03 | Progress Note - Hospitalist ---
Subjective HPI/CC On Admission Date Seen by Provider: Dec 01, 2021 Time Seen by Provider: 09:20 Bharat Webber is an 81 year old male with PMH HTN, HLD, AFib, HFpEF, COPD on home oxygen 2 L with activity, BPH with chronic indwelling corbett, iron defieicency anemia, recent GI bleed due to gastric ulcer, who presented with shortness of breath. He has been feeling more weak over the past few days. He has been getting short of breath with minimal activity. He denies fevers and chills. He has been coughing. He denies chest pain. He denies abdominal pain. He denies nausea and vomiting. He has not noticed any swelling. Subjective/Events-last exam He is short of breath today. He was having some chest discomfort earlier. He denies fevers. He has no other complaints. Objective Exam Vital Signs Vital Signs Date Time Temp Pulse Resp B/P (MAP) Pulse Ox O2 Delivery O2 Flow Rate FiO2 12/01/21 10:48 95 Nasal Cannula 3.00 12/01/21 07:39 36.3 96 26 126/69 (88) 11/27/21 20:30 32 Capillary Refill : Less Than 3 Seconds General Appearance: No Apparent Distress, Chronically ill, Obese Respiratory: No Respiratory Distress, Wheezing Cardiovascular: No Murmur, Irregularly Irregular, Tachycardia Gastrointestinal: Normal Bowel Sounds, Soft Extremity: Normal Inspection, Non Tender Neurologic/Psychiatric: Alert, Depressed Affect Skin: Normal Color, Warm/Dry Results/Procedures Lab Laboratory Tests 12/01/21 04:45 Patient resulted labs reviewed. Imaging: Reviewed Imaging Films, Reviewed Imaging Report Assessment/Plan Assessment and Plan Assess & Plan/Chief Complaint Pneumonia Acute on chronic respiratory failure with hypoxia Pleural effusions COPD exacerbation HFpEF Supplemental oxygen as needed Continue Cefepime Surgery following s/p thoracentesis Pulmonology following Continue prednisone MAT protocol Giving Lasix Iron deficiency anemia s/p Infed COPD BPH Hypothyroidism AFib Continue home meds Debility PT/OT DVT prophylaxis: Lovenox Severe sepsis, resolved Lactic acidosis, resolved Diagnosis/Problems Diagnosis/Problems (1) Severe sepsis Status: Resolved Resolution Date/Time: 11/29/21 @ 11:54 (2) Lactic acidosis Status: Resolved Resolution Date/Time: 11/29/21 @ 11:54 (3) Recurrent pneumonia Status: Acute (4) Acute on chronic respiratory failure with hypoxemia Status: Acute (5) Debility Status: Acute (6) Chronic heart failure with preserved ejection fraction (HFpEF) Status: Chronic (7) COPD (chronic obstructive pulmonary disease) Status: Acute Qualifiers: COPD type: COPD with acute exacerbation Qualified Codes: J44.1 - Chronic obstructive pulmonary disease with (acute) exacerbation (8) Anemia Status: Chronic Qualifiers: Anemia type: iron deficiency (9) Paroxysmal atrial fibrillation Status: Chronic (10) Primary hypertension Status: Chronic (11) Mixed hyperlipidemia Status: Chronic (12) Obesity Status: Chronic KIEL ESCOBAR MD Dec 01, 2021 11:03
--- NOTE | 2021-12-01 14:45 | Progress Note - Cardiology ---
Cardiology SOAP Progress Note Subjective: Shortness of breath modestly improved Chest discomfort: L and R parasternal, sharp, mild to mod, worse with breathing, lasting a few min this morning, w/o radiation or associated symptoms, no recurrence No palp or syncope No n/v/d Objective: I&O/Vital Signs 12/01/21 12/01/21 12/01/21 12/01/21 04:00 04:00 07:00 07:39 Temp 37.0 36.3 Pulse 77 96 96 Resp 19 26 B/P (MAP) 109/56 (73) 126/69 (88) Pulse Ox 98 96 O2 Delivery High Flow N/C High Flow N/C O2 Flow Rate 2.00 1.00 12/01/21 12/01/21 12/01/21 12/01/21 07:41 08:15 10:48 11:43 Temp 36.2 Pulse 113 Resp 14 B/P (MAP) 111/57 (75) Pulse Ox 98 91 95 92 O2 Delivery Nasal Cannula High Flow N/C Nasal Cannula High Flow N/C O2 Flow Rate 1.00 3.00 3.00 3.00 12/01/21 12:51 Pulse 125 12/01/21 00:00 Intake Total 2900 ml Output Total 1075 ml Balance 1825 ml Constitutional: AAO x 3, well-developed, well-nourished Respiratory: No accessory muscle use, No respiratory distress; chest expansion is symmetric, chest is bilaterally symmetric, rhonchi (scattered), other (diminished lower lobes bilat) Cardiovascular: irregularly irregular; No JVD; S1 and S2 Gastrointestional: No tender; soft, round, audible bowel sounds Extremities: other (mild to mod bilat LE swelling) Neurologic/Psychiatric: grossly intact (moves all extremities) Skin: No rash on exposed areas, No ulcerations on exposed areas Results/Procedures: Labs Laboratory Tests 12/01/21 04:45: Sodium Level 136, Potassium Level 3.8, Chloride Level 107, Carbon Dioxide Level 21, Anion Gap 8, Blood Urea Nitrogen 17, Creatinine 0.71, Estimat Glomerular Filtration Rate 93, BUN/Creatinine Ratio 24, Glucose Level 131H, Calcium Level 8.2L 12/01/21 09:07: Troponin I < 0.028 Microbiology 11/28/21 Gram Stain - Final, Complete 11/28/21 Body Fluid Culture - Final, Complete No growth 11/27/21 Blood Culture - Preliminary, Resulted No growth Laboratory Tests 11/30/21 04:45 12/01/21 04:45 A/P: Assessment: Pneumonia with sepsis Acute on chronic resp failure - likely multifactorial: ac exac of advanced COPD and probable acute diastolic CHF Pleural effusion - s/p right thoracentesis on 11-28-[address] Teague (1600ml drained) - fluid appears transudative HFpEF - echocardiogram of 10-06-[address] Ford showed LVEF 55-60%. Grade 1 diastolic dysfunction COPD - h/o tobaccoism - quit 4 yrs ago PAF with RVR - previously on Xarelto for stroke prophylaxis - currently on Eliquis HTN HLD Plan: Complex management due to multiple comorbidities (see above) EKG during chest discomfort this morning did not show any significant changes over baseline Vent rate still not well controlled. Because of low normal bp, does not appear suitable for more dilt/bb. Will add dig OAC for rate control Monitor lab closely Replace electrolytes as indicated I answered his and family's CV-related questions ANJUM FARMER MD FACP FACC CCDS Dec 01, 2021 14:45
[2021-12-01] MEDS ORDERED: DIGOXIN 0.125 MG (LANOXIN) TAB PO NR (15:00)
[2021-12-01] MEDS: MONTELUKAST 10 MG (SINGULAIR) TAB PO SCH (21:02)
[2021-12-02] MEDS: CEFEPIME 1,000 MG/NS 50 ML IVPB IV SCH ×6 (00:53→11:58)
[2021-12-02] MEDS: RT-ALBUTEROL/IPRATROPIUM 3 ML (DUONEB) VIAL INH SCH ×6 (02:57→21:32)
[2021-12-02 04:00] VITALS: BP 120/60
[2021-12-02 05:52] LABS: BASOPHILS % (AUTO) 0 % (0-10); EOSINOPHILS % (AUTO) 0 % (0-10); HEMATOCRIT 23 % (40-54); HEMOGLOBIN 7.2 g/dL (13.3-17.7); LYMPHOCYTES # (AUTO) 1.3 10^3/uL (1.0-4.0); LYMPHOCYTES % (AUTO) 6 % (12-44); MEAN CORPUSCULAR HEMOGLOBIN 30 pg (25-34); MEAN CORPUSCULAR HGB CONC 31 g/dL (32-36); MEAN CORPUSCULAR VOLUME 98 fL (80-99); MEAN PLATELET VOLUME 9.6 fL (9.0-12.2); MONOCYTES # (AUTO) 1.8 10^3/uL (0.0-1.0); MONOCYTES % (AUTO) 8 % (0-12); NEUTROPHILS % (AUTO) 81 % (42-75); PLATELET COUNT 590 10^3/uL (130-400); WHITE BLOOD COUNT 22.3 10^3/uL (4.3-11.0)
[2021-12-02 06:06] LABS: POTASSIUM 3.7 MMOL/L (3.6-5.0)
[2021-12-02 06:07] LABS: CALCIUM 8.2 MG/DL (8.5-10.1)
[2021-12-02 06:11] LABS: CREATININE SERUM 0.74 MG/DL (0.60-1.30)
[2021-12-02] MEDS: SUCRALFATE 1 GM (CARAFATE) TAB PO SCH ×4 (06:33→20:39)
[2021-12-02] MEDS: predniSONE 20 MG TAB PO SCH (06:33)
[2021-12-02] MEDS: LEVOTHYROXINE 125 MCG (LEVOTHROID) TABLET PO SCH (06:33)
[2021-12-02] MEDS: RT--FLUTICASONE/SALMETEROL 232-14 (AIRDUO RespiCLICK) IH SCH ×2 (07:06→18:38)
[2021-12-02 07:44] VITALS: BP 112/90
[2021-12-02] MEDS: TAMSULOSIN 0.4 MG (FLOMAX) CAP PO SCH ×2 (08:02→14:45)
[2021-12-02] MEDS: LACTOBACILLUS ACIDOPHILUS (PROBIOTIC) CAPSULE PO SCH (08:03)
[2021-12-02] MEDS: PANTOPRAZOLE 40 MG (PROTONIX) TAB PO SCH ×2 (08:03→14:45)
[2021-12-02] MEDS: APIXABAN 5 MG (ELIQUIS) TABLET PO SCH ×2 (08:03→20:40)
[2021-12-02] MEDS: ACETAMINOPHEN 325 MG TABLET PO SCH (08:06)
[2021-12-02] MEDS: DIGOXIN 0.25 MG (LANOXIN) TAB PO SCH (08:06)
[2021-12-02] MEDS ORDERED: FUROSEMIDE 40 MG/4 ML INJ (LASIX) IVP SCH (09:00)
--- NOTE | 2021-12-02 10:14 | Progress Note - Hospitalist ---
Subjective HPI/CC On Admission Date Seen by Provider: Dec 02, 2021 Time Seen by Provider: 09:30 Bharat Webber is an 81 year old male with PMH HTN, HLD, AFib, HFpEF, COPD on home oxygen 2 L with activity, BPH with chronic indwelling corbett, iron defieicency anemia, recent GI bleed due to gastric ulcer, who presented with shortness of breath. He has been feeling more weak over the past few days. He has been getting short of breath with minimal activity. He denies fevers and chills. He has been coughing. He denies chest pain. He denies abdominal pain. He denies nausea and vomiting. He has not noticed any swelling. Subjective/Events-last exam He is sitting on the commode. He denies shortness of breath at this time. He was short of breath when he moved over. He denies pain. He has no other complaints. Objective Exam Vital Signs Vital Signs Date Time Temp Pulse Resp B/P (MAP) Pulse Ox O2 Delivery O2 Flow Rate FiO2 12/02/21 08:00 94 High Flow N/C 3.00 12/02/21 07:44 36.3 103 23 112/90 (97) 11/27/21 20:30 32 Capillary Refill : Less Than 3 Seconds General Appearance: No Apparent Distress, Chronically ill Respiratory: No Respiratory Distress, Wheezing Cardiovascular: Irregularly Irregular, Tachycardia Gastrointestinal: Normal Bowel Sounds, Non Tender, Soft Extremity: Normal Inspection, Pedal Edema Neurologic/Psychiatric: Alert, Motor Weakness Skin: Normal Color, Warm/Dry Results/Procedures Lab Laboratory Tests 12/02/21 05:40 Patient resulted labs reviewed. Imaging: Reviewed Imaging Films, Reviewed Imaging Report Assessment/Plan Assessment and Plan Assess & Plan/Chief Complaint Pneumonia Acute on chronic respiratory failure with hypoxia Pleural effusions COPD exacerbation Acute on chronic HFpEF Supplemental oxygen as needed Continue Cefepime Surgery following s/p thoracentesis Pulmonology following Continue prednisone MAT protocol Increase Lasix AFib with RVR Consider increasing Cardizem Continue Eliquis Cardiology following Iron deficiency anemia s/p Infed BPH Hypothyroidism Continue home meds Debility PT/OT DVT prophylaxis: Lovenox Severe sepsis, resolved Lactic acidosis, resolved Diagnosis/Problems Diagnosis/Problems (1) Severe sepsis Status: Resolved Resolution Date/Time: 11/29/21 @ 11:54 (2) Lactic acidosis Status: Resolved Resolution Date/Time: 11/29/21 @ 11:54 (3) Recurrent pneumonia Status: Acute (4) Acute on chronic respiratory failure with hypoxemia Status: Acute (5) Debility Status: Acute (6) Chronic heart failure with preserved ejection fraction (HFpEF) Status: Chronic (7) COPD (chronic obstructive pulmonary disease) Status: Acute Qualifiers: COPD type: COPD with acute exacerbation Qualified Codes: J44.1 - Chronic obstructive pulmonary disease with (acute) exacerbation (8) Anemia Status: Chronic Qualifiers: Anemia type: iron deficiency (9) Paroxysmal atrial fibrillation Status: Chronic (10) Primary hypertension Status: Chronic (11) Mixed hyperlipidemia Status: Chronic (12) Obesity Status: Chronic (13) Atrial fibrillation with RVR Status: Acute KIEL ESCOBAR MD Dec 02, 2021 10:14
[2021-12-02 11:19] VITALS: BP 103/44
[2021-12-02 16:00] VITALS: BP 118/60
--- NOTE | 2021-12-02 16:29 | Progress Note - Cardiology ---
Cardiology SOAP Progress Note Subjective: No cp or palp or syncope Shortness of breath with activity Gen malaise No n/v/d Objective: I&O/Vital Signs 12/02/21 12/02/21 12/02/21 12/02/21 07:00 07:07 07:44 08:00 Temp 36.3 Pulse 102 103 Resp 23 B/P (MAP) 112/90 (97) Pulse Ox 96 90 94 O2 Delivery Nasal Cannula High Flow N/C High Flow N/C O2 Flow Rate 3.00 3.00 3.00 12/02/21 12/02/21 12/02/21 12/02/21 10:54 11:19 12:45 14:38 Temp 36.4 Pulse 92 106 Resp 22 B/P (MAP) 103/44 (63) Pulse Ox 99 97 98 O2 Delivery Nasal Cannula High Flow N/C Nasal Cannula O2 Flow Rate 3.00 3.00 3.00 12/02/21 00:00 Intake Total 1700 ml Output Total 2275 ml Balance -575 ml Constitutional: AAO x 3, well-developed, well-nourished Respiratory: No accessory muscle use, No respiratory distress; chest expansion is symmetric, chest is bilaterally symmetric, rhonchi (scattered), other (diminished lower lobes bilat) Cardiovascular: irregularly irregular; No JVD; S1 and S2 Gastrointestional: No tender; soft, round, audible bowel sounds Extremities: other (mild to mod bilat LE swelling) Neurologic/Psychiatric: grossly intact (moves all extremities) Skin: No rash on exposed areas, No ulcerations on exposed areas Results/Procedures: Labs Laboratory Tests 12/02/21 05:40: White Blood Count 22.3H, Red Blood Count 2.38L, Hemoglobin 7.2L, Hematocrit 23L, Mean Corpuscular Volume 98, Mean Corpuscular Hemoglobin 30, Mean Corpuscular Hemoglobin Concent 31L, Red Cell Distribution Width 17.1H, Platelet Count 590H, Mean Platelet Volume 9.6, Immature Granulocyte % (Auto) 5, Neutrophils (%) (Auto) 81H, Lymphocytes (%) (Auto) 6L, Monocytes (%) (Auto) 8, Eosinophils (%) (Auto) 0, Basophils (%) (Auto) 0, Neutrophils # (Auto) 18.0H, Lymphocytes # (Auto) 1.3, Monocytes # (Auto) 1.8H, Eosinophils # (Auto) 0.0, Basophils # (Auto) 0.0, Immature Granulocyte # (Auto) 1.1H, Sodium Level 137, Potassium Level 3.7, Chloride Level 106, Carbon Dioxide Level 23, Anion Gap 8, Blood Urea Nitrogen 22H, Creatinine 0.74, Estimat Glomerular Filtration Rate 92, BU N/Creatinine Ratio 30, Glucose Level 97, Calcium Level 8.2L Microbiology 11/28/21 Gram Stain - Final, Complete 11/28/21 Body Fluid Culture - Final, Complete No growth 11/27/21 Blood Culture - Preliminary, Resulted No growth Laboratory Tests 12/01/21 04:45 12/02/21 05:40 A/P: Assessment: Pneumonia with sepsis Acute on chronic resp failure - likely multifactorial: ac exac of advanced COPD and probable acute diastolic CHF Pleural effusion - s/p right thoracentesis on 11-28-[address] Teague (1600ml drained) - fluid appears transudative HFpEF - echocardiogram of 10-06-[address] Ford showed LVEF 55-60%. Grade 1 diastolic dysfunction COPD - h/o tobaccoism - quit 4 yrs ago PAF with RVR - previously on Xarelto for stroke prophylaxis - currently on Eliquis HTN HLD Plan: Complex management due to multiple comorbidities (see above) Continue dig that was added to dilt on 12/01/21 (for better vent rate control) OAC for rate control Monitor lab closely Replace electrolytes as indicated I again answered his and family's CV-related questions ANJUM FARMER MD FACP FAC CCDS Dec 02, 2021 16:29
[2021-12-02] MEDS: FUROSEMIDE 40 MG/4 ML INJ (LASIX) IVP SCH (17:16)
[2021-12-02 20:00] VITALS: BP 101/68
[2021-12-02] MEDS: MONTELUKAST 10 MG (SINGULAIR) TAB PO SCH (20:39)
[2021-12-02 23:41] VITALS: BP 118/61
[2021-12-03] VITALS (8 sets, daily range): BP systolic 91–131; BP diastolic 52–65
[2021-12-03] MEDS: RT-ALBUTEROL/IPRATROPIUM 3 ML (DUONEB) VIAL INH SCH ×6 (02:27→22:15)
[2021-12-03] MEDS: LEVOTHYROXINE 125 MCG (LEVOTHROID) TABLET PO SCH (06:34)
[2021-12-03] MEDS: FUROSEMIDE 40 MG/4 ML INJ (LASIX) IVP SCH ×2 (06:34→16:22)
[2021-12-03] MEDS: predniSONE 20 MG TAB PO SCH (06:34)
[2021-12-03] MEDS: SUCRALFATE 1 GM (CARAFATE) TAB PO SCH ×4 (06:34→19:59)
[2021-12-03 07:07] LABS: POTASSIUM 3.9 MMOL/L (3.6-5.0)
[2021-12-03 07:09] LABS: CALCIUM 8.1 MG/DL (8.5-10.1)
[2021-12-03 07:13] LABS: CREATININE SERUM 0.89 MG/DL (0.60-1.30)
[2021-12-03] MEDS: RT--FLUTICASONE/SALMETEROL 232-14 (AIRDUO RespiCLICK) IH SCH ×2 (08:18→19:01)
[2021-12-03] MEDS: LACTOBACILLUS ACIDOPHILUS (PROBIOTIC) CAPSULE PO SCH (08:41)
[2021-12-03] MEDS: TAMSULOSIN 0.4 MG (FLOMAX) CAP PO SCH ×2 (08:41→14:16)
[2021-12-03] MEDS: APIXABAN 5 MG (ELIQUIS) TABLET PO SCH ×2 (08:41→19:59)
[2021-12-03] MEDS: PANTOPRAZOLE 40 MG (PROTONIX) TAB PO SCH ×2 (08:41→14:16)
[2021-12-03] MEDS: DIGOXIN 0.25 MG (LANOXIN) TAB PO SCH (08:42)
--- NOTE | 2021-12-03 08:48 | Cardiology Progress Note ---
Progress Note-Cardiology Events since last exam Date Seen by Provider: Dec 03, 2021 Time Seen by Provider: 08:46 Events since last exam I am following him due to heart failure and atrial arrhythmias. His main co mplaint this morning is constipation. His breathing and peripheral edema feel about the same. He denies chest pain, palpitations, or syncope. Certain portions of this document may have been dictated utilizing voice recognition technology. Inherent to this technology, typographical and grammatical errors may exist. As much as I am diligent to identify and correct these mistakes, some errors may remain in the document. Vitals Last set of Vitals Signs Vital Signs 11/27/21 12/03/21 12/03/21 20:30 08:00 08:44 Temp 36.8 Pulse 108 Resp 25 B/P (MAP) 131/65 (85) Pulse Ox 98 O2 Delivery High Flow N/C O2 Flow Rate 3.00 FiO2 32 Labs Labs Laboratory Tests 12/03/21 06:40 Exam Vital Signs Vital Signs Date Time Temp Pulse Resp B/P (MAP) Pulse Ox O2 Delivery O2 Flow Rate FiO2 12/03/21 08:44 98 High Flow N/C 3.00 12/03/21 08:00 36.8 108 25 131/65 (85) 11/27/21 20:30 32 Physical Exam General: Alert. No acute distress. He is wearing oxygen by nasal cannula. Eye: No xanthelasma. HENT: Normocephalic. Neck: Jugular venous pressure does not appear elevated. Respiratory: Lungs have diffuse wheezes with decreased breath sounds. Respirations are non-labored. Breath sounds are equal. Symmetrical chest wall expansion. Cardiovascular: Normal rate. Irregular rhythm. No murmur. No gallop. 2+ bila teral pretibial edema. Gastrointestinal: Soft. Normal bowel sounds. Skin: Warm. Dry. Neurologic: Alert and oriented to person, place, time. Cranial nerves 3-11 grossly intact. Psychiatric: Cooperative. Appropriate mood & affect. Labs Laboratory Tests Test 12/03/21 06:40 Range/Units Sodium Level 137 135-145 MMOL/L Potassium Level 3.9 3.6-5.0 MMOL/L Chloride Level 104 98-107 MMOL/L Carbon Dioxide Level 23 21-32 MMOL/L Anion Gap 10 5-14 MMOL/L Blood Urea Nitrogen 31 H 7-18 MG/DL Creatinine 0.89 0.60-1.30 MG/DL Estimat Glomerular Filtration Rate 87 BUN/Creatinine Ratio 35 Glucose Level 100 70-105 MG/DL Calcium Level 8.1 L 8.5-10.1 MG/DL Diagnosis/Problems Diagnosis/Problems (1) Acute on chronic heart failure with preserved ejection fraction (HFpEF) Assessment & Plan: Much of his breathing difficulty is likely related to his underlying pulmonary disease. However, he does have ongoing peripheral edema. We will continue with intravenous furosemide. (2) Paroxysmal atrial fibrillation Status: Chronic Assessment & Plan: For the most part, he seems to be remaining in sinus rhythm with intermittent multifocal atrial tachycardia but no prolonged episodes of atrial fibrillation. He is on apixaban for stroke prophylaxis. He had been on rivaroxaban during a previous hospitalization but this was stopped due to severe anemia. We will need to keep an eye on his hemoglobin closely. He is on diltiazem for rate control. Over the weekend he was started on digoxin due to some tachycardia. I am concerned this could just aggravate the multifocal atrial tachycardia. I suspect until his pulmonary condition improves or at least returns to baseline, he will have intermittent tachycardia. He is not an ideal candidate for beta-yisel due to his severe underlying pulmonary disease. (3) Multifocal atrial tachycardia Status: Acute Assessment & Plan: Much of the arrhythmias he has been experiencing seems to be both atrial and ventricular premature complexes. We will continue diltiazem for rate control. As above, I have stopped the digoxin because this could just exacerbate the multifocal atrial tachycardia. (4) Primary hypertension Status: Chronic Assessment & Plan: Blood pressures have been reasonably controlled with dil tiazem. (5) Mixed hyperlipidemia Status: Chronic Assessment & Plan: Continue atorvastatin. (6) Acute on chronic respiratory failure with hypoxemia Status: Acute Assessment & Plan: I suspect this is primarily due to his underlying pulmonary disease with superimposed infection which is being treated with antibiotics. I will obtain a follow-up chest x-ray. SHERRI CHO JR, MD Dec 03, 2021 08:48
[2021-12-03] MEDS: ACETAMINOPHEN 325 MG TABLET PO SCH (08:52)
--- NOTE | 2021-12-03 08:55 | Physical Therapy Daily Note ---
PT Daily Note-Current Subjective Patient presented sitting in the chair and reports that he needs to go to the bathroom. Mental Status Patient Orientation: Person, Place, Situation Attachments: Oxygen (3L NC), IV Transfers SCALE: Activities may be completed with or without assistive devices. 4-Irzblknlmu-ltzyvzh completes the activity by him/herself with no assistance from a helper. 5-Set-up or Clean-up Assistance-helper sets up or cleans up; patient completes activity. [place] assists only prior to or following the activity. 4-Supervision or Touching Assistance-helper provides verbal cues and/or touching/steadying and/or contact guard assistance as patient completes activity. Assistance may be provided throughout the activity or intermittently. 3-Partial/Moderate Assistance-helper does LESS THAN HALF the effort. [place] lifts, holds or supports trunk or limbs, but provides less than half the effort. 2-Substantial/Maximal Assistance-helper does MORE THAN HALF the effort. [place] lifts or holds trunk or limbs and provides more than half the effort. 4-Loxjlyplf-mbrzei does ALL the effort. Patient does none of the effort to complete the activity. Or, the assistance of 2 or more helpers is required for the patient to complete the activity. If activity was not attempted, code reason: 7-Patient Refused. 9-Not Applicable-not attempted and the patient did not perform the activity be fore the current illness, exacerbation or injury. 10-Not Attempted due to Environmental Limitations-(lack of equipment, weather restraints, etc.). 88-Not Attempted due to Medical Conditions or Safety Concerns. Sit to Stand (QC): 3 Toilet Transfer (QC): 3 Patient required mod transfer for sit to stand transfer out of the recliner and to pivot to sit on the commode. Assessment Patient performed sit to stand transfer and transferred to the commode during therapy session. Patient reported fatigue and SOA during transfer. No other treatment was performed due to patient fatigue and SOA. PT Short Term Goals Short Term Goals Time Frame: Dec 03, 2021 PT Mcfp Goals Shake Feeder Goals PT Shake Feeder Goals Time Frame: Dec 07, 2021 Roll Left & Right (QC): 6 Sit to Lying (QC): 4 Lying-Sitting on Side/Bed(QC): 4 Sit to Stand (QC): 4 (SBA) Chair/Hws-lm-Idzqu Xfer(QC): 4 (SBA) Walk 10 feet (QC): 4 Walk 50ft with 2 Turns (QC): 4 PT Plan Problem List Problem List: Activity Tolerance, Functional Strength, Safety, Balance, Gait, Transfer, Bed Mobility, ROM Treatment/Plan Treatment Plan: Continue Plan of Care Treatment Plan: Bed Mobility, Education, Functional Activity Tatiana, Functional Strength, Gait, Safety, Therapeutic Exercise, Transfers Treatment Duration: Dec 07, 2021 Frequency: 6 times per week Estimated Hrs Per Day: .25 hour per day Patient and/or Family Agrees t: Yes Time/GCodes Time In: 733 Time Out: 746 Total Billed Treatment Time: 13 Total Billed Treatment 1 Visit FA 13 min INOCENCIA WITT PT Dec 03, 2021 08:55
--- NOTE | 2021-12-03 11:00 | Progress Note - Hospitalist ---
Subjective HPI/CC On Admission Date Seen by Provider: Dec 03, 2021 Time Seen by Provider: 09:10 Bharat Webber is an 81 year old male with PMH HTN, HLD, AFib, HFpEF, COPD on home oxygen 2 L with activity, BPH with chronic indwelling corbett, iron defieicency anemia, recent GI bleed due to gastric ulcer, who presented with shortness of breath. He has been feeling more weak over the past few days. He has been getting short of breath with minimal activity. He denies fevers and chills. He has been coughing. He denies chest pain. He denies abdominal pain. He denies nausea and vomiting. He has not noticed any swelling. Subjective/Events-last exam He is sitting on the commode. He thinks his breathing is better. He denies pain. Objective Exam Vital Signs Vital Signs Date Time Temp Pulse Resp B/P (MAP) Pulse Ox O2 Delivery O2 Flow Rate FiO2 12/03/21 08:44 98 High Flow N/C 3.00 12/03/21 08:00 36.8 108 25 131/65 (85) 11/27/21 20:30 32 Capillary Refill : Less Than 3 Seconds General Appearance: Chronically ill, Mild Distress (tachypnea) Respiratory: Decreased Breath Sounds, Respiratory Distress (tachypnea), Wheezing Cardiovascular: Irregularly Irregular, Tachycardia Gastrointestinal: Normal Bowel Sounds, Soft Extremity: Non Tender, Pedal Edema Neurologic/Psychiatric: Alert, Normal Mood/Affect Skin: Normal Color, Warm/Dry Results/Procedures Lab Laboratory Tests 12/03/21 06:40 Patient resulted labs reviewed. Imaging: Reviewed Imaging Films, Reviewed Imaging Report Assessment/Plan Assessment and Plan Assess & Plan/Chief Complaint Acute on chronic respiratory failure with hypoxia Pleural effusions COPD exacerbation Acute on chronic HFpEF Supplemental oxygen as needed s/p Cefepime Surgery following s/p thoracentesis Pulmonology following Continue prednisone MAT protocol Continue Lasix AFib with RVR Multifocal atrial tachycardia Continue Cardizem Started on Digoxin Continue Eliquis Cardiology following Iron deficiency anemia s/p Infed BPH Hypothyroidism Continue home meds Debility PT/OT DVT prophylaxis: Lovenox Severe sepsis, resolved Lactic acidosis, resolved Pneumonia, resolved Diagnosis/Problems Diagnosis/Problems (1) Severe sepsis Status: Resolved Resolution Date/Time: 11/29/21 @ 11:54 (2) Lactic acidosis Status: Resolved Resolution Date/Time: 11/29/21 @ 11:54 (3) Recurrent pneumonia Status: Acute (4) Acute on chronic respiratory failure with hypoxemia Status: Acute (5) Debility Status: Acute (6) Chronic heart failure with preserved ejection fraction (HFpEF) Status: Chronic (7) COPD (chronic obstructive pulmonary disease) Status: Acute Qualifiers: COPD type: COPD with acute exacerbation Qualified Codes: J44.1 - Chronic obstructive pulmonary disease with (acute) exacerbation (8) Anemia Status: Chronic Qualifiers: Anemia type: iron deficiency (9) Paroxysmal atrial fibrillation Status: Chronic (10) Primary hypertension Status: Chronic (11) Mixed hyperlipidemia Status: Chronic (12) Obesity Status: Chronic (13) Atrial fibrillation with RVR Status: Acute KIEL ESCOBAR MD Dec 03, 2021 11:00
[2021-12-03] MEDS ORDERED: CEFDINIR 300 MG (OMNICEF) CAP PO NR (11:02)
--- NOTE | 2021-12-03 11:31 | Occupational Therapy Eval ---
OT Evaluation-General/PLF Medical Diagnosis Admission Date Nov 27, 2021 at 18:00 Medical Diagnosis: sepsis, PNA Onset Date: Nov 27, 2021 Therapy Diagnosis Therapy Diagnosis: reduced adl status Precautions Precautions/Isolations: Fall Prevention, Standard Precautions Referral Physician: Elías Joy Reason: Evaluation/Treatment Medical History Pertinent Medical History: Atrial Fib, HTN, Hypothroidism Current History Pt has had multiple hospital stays within last 6 months. He currently lives at home with his and son. Since returning home from last hospital stay, pt reports he has had to have assistance with all adls from and daughter secondary to SOB and fatigue with very minimal activity. He was using a walker. Family perform all IADLs. Social History Home: Single Level Current Living Status: Spouse Entry Into Home: Level Entry ADL-Prior Level of Function SCALE: Activities may be completed with or without assistive devices. 9-Cnxfltiita-pigyowr completes the activity by him/herself with no assistance f rom a helper. 5-Set-up or Clean-up Assistance-helper sets up or cleans up; patient completes activity. [place] assists only prior to or following the activity. 4-Supervision or Touching Assistance-helper provides verbal cues and/or touching/steadying and/or contact guard assistance as patient completes activity. Assistance may be provided throughout the activity or intermittently. 3-Partial/Moderate Assistance-helper does LESS THAN HALF the effort. [place] lifts, holds or supports trunk or limbs, but provides less than half the effort. 2-Substantial/Maximal Assistance-helper does MORE THAN HALF the effort. [place] lifts or holds trunk or limbs and provides more than half the effort. 2-Puhzpvvih-ejspjh does ALL the effort. Patient does none of the effort to complete the activity. Or, the assistance of 2 or more helpers is required for the patient to complete the activity. If activity was not attempted, code reason: 7-Patient Refused. 9-Not Applicable-not attempted and the patient did not perform the activity before the current illness, exacerbation or injury. 10-Not Attempted due to Environmental Limitations-(lack of equipment, weather restraints, etc.). 88-Not Attempted due to Medical Conditions or Safety Concerns. Self Care: Needed Some Help Functional Cognition: Independent DME/Equipment: Bath Chair, Grab Bars, Tall Toilet, Tub/Shower Drive Self: No OT Current Status Subjective Pt denies pain, reports that he continues to go down hill secondary to SOB Appearance Pt left sitting in recliner, all needs within reach. Mental Status/Objective Attachments: Bal Catheter, IV, Oxygen, Telemetry Current Glasses/Contacts: Yes Hearing Aids: No Upper Extremity ROM bilateral shoulders 3/4 AROM L shoulder: full PROM Elbow-distally WNL Upper Extremity Strength 3/5 grossly ADL-Treatment Lower Body Dressing (QC): 2 On/Off Footwear (QC): 1 Pt sitting in chair, oxygen between 81-88% at rest. Cues for PLB. Pt unable to reach feet to don/doff socks. During last rehab stay, he was using a sock aid and medical transcriptionist for LB dressing tasks. He states that since returning home, his family has just been doing it for him. Dep to don over feet. Mod-max a to stand from low chair. Fatigues quickly. Desats to upper 70's. Pt returned to sitting. Pt likely needing at least steadying assist with clothing management pre/post toileting. Education OT Patient Education: Correct positioning, Energy conservation, Modified ADL techniques, Purpose of tx/functional activities, Safety issues, Transfer techniques Teaching Recipient: Patient Teaching Methods: Discussion Response to Teaching: Verbalize Understanding, Reinforcement Needed OT Mcfp Goals Mcfp Goals Time Frame: Dec 14, 2021 Oral Hygiene (QC): 5 Toileting Hygiene (QC): 4 Shower/Bathe Self (QC): 3 Upper Body Dressing (QC): 4 Lower Body Dressing (QC): 3 On/Off Footwear (QC): 3 1=Demonstrate adherence to instructed precautions during ADL tasks. 2=Patient will verbalize/demonstrate understanding of assistive devices/modifications for ADL. 3=Patient will improve strength/tolerance for activity to enable patient to perform ADL's. OT Education/Plan Problem List/Assessment Assessment: Decreased Activ Tolerance, Decreased Safety Aware, Decreased UE Strength, Edema, Impaired Funct Balance, Impaired I ADL's, Impaired Self-Care Skills, Restricted Funct UE ROM Discharge Recommendations Plan/Recommendations: Continue POC Therapy Discharge Recommendati: Post Acute OT Equpiment Recommendations-D/C: Wordpress Developer, Sock Aide Treatment Plan/Plan of Care Treatment,Training & Education: Yes Patient would benefit from OT for education, treatment and training to promote independence in ADL's, mobility, safety and/or upper extremity function for ADL's. Plan of Care: ADL Retraining, Functional Mobility, Group Exercise/Act as Ind, UE Funct Exercise/Act Treatment Duration: Dec 14, 2021 Frequency: 3 times per week (3-5x/week) Estimated Hrs Per Day: .25 hour per day Agreement: Yes Rehab Potential: Fair Time/GCodes Start Time: 10:39 Stop Time: 10:51 Total Time Billed (hr/min): 12 Billed Treatment Time 1 visit Tamiko Mckinley OT Dec 03, 2021 11:31
--- NOTE | 2021-12-03 11:57 | Diagnostic Imaging Report ---
INDICATION: Dyspnea PA and lateral views of the chest are obtained with comparison made to study of 10/25/2021. There has been further increase in airspace disease in right perihilar region and both lung bases. There is blunting of both costophrenic sulci. No pneumothorax is seen. IMPRESSION: Pleural effusion, greater on the right with increasing perihilar edema and/or pneumonitis, greater on the right. Dictated by: Dictated on workstation # [id number]
[2021-12-03] MEDS: MONTELUKAST 10 MG (SINGULAIR) TAB PO SCH (19:59)
[2021-12-03] MEDS: CEFDINIR 300 MG (OMNICEF) CAP PO SCH (19:59)
[2021-12-04] VITALS (7 sets, daily range): BP systolic 101–108; BP diastolic 53–58
[2021-12-04] MEDS: RT-ALBUTEROL/IPRATROPIUM 3 ML (DUONEB) VIAL INH SCH ×3 (03:10→10:52)
[2021-12-04 04:35] LABS: POTASSIUM 3.6 MMOL/L (3.6-5.0)
[2021-12-04 04:36] LABS: CALCIUM 7.8 MG/DL (8.5-10.1)
[2021-12-04 04:41] LABS: CREATININE SERUM 0.88 MG/DL (0.60-1.30)
[2021-12-04] MEDS: SUCRALFATE 1 GM (CARAFATE) TAB PO SCH ×2 (05:57→11:50)
[2021-12-04] MEDS: predniSONE 20 MG TAB PO SCH (05:57)
[2021-12-04] MEDS: FUROSEMIDE 40 MG/4 ML INJ (LASIX) IVP SCH (05:57)
[2021-12-04] MEDS: LEVOTHYROXINE 125 MCG (LEVOTHROID) TABLET PO SCH (05:58)
[2021-12-04 06:47] LABS: IMMUNOFIX PATH REPORT NUMBER Complete (Complete)
[2021-12-04] MEDS: RT--FLUTICASONE/SALMETEROL 232-14 (AIRDUO RespiCLICK) IH SCH (07:50)
[2021-12-04] MEDS: TAMSULOSIN 0.4 MG (FLOMAX) CAP PO SCH (08:17)
[2021-12-04] MEDS: APIXABAN 5 MG (ELIQUIS) TABLET PO SCH (08:17)
[2021-12-04] MEDS: LACTOBACILLUS ACIDOPHILUS (PROBIOTIC) CAPSULE PO SCH (08:17)
[2021-12-04] MEDS: PANTOPRAZOLE 40 MG (PROTONIX) TAB PO SCH (08:17)
[2021-12-04] MEDS: CEFDINIR 300 MG (OMNICEF) CAP PO SCH (08:18)
[2021-12-04] MEDS: ACETAMINOPHEN 325 MG TABLET PO SCH (08:19)
--- NOTE | 2021-12-04 09:18 | Physical Therapy Daily Note ---
PT Daily Note-Current Subjective Patient presented laying in bed and reported he wanted to get up and move to the chair. Mental Status Patient Orientation: Person, Place, Situation Attachments: Oxygen Transfers SCALE: Activities may be completed with or without assistive devices. 8-Alkzooylnc-tzfrkex completes the activity by him/herself with no assistance from a helper. 5-Set-up or Clean-up Assistance-helper sets up or cleans up; patient completes activity. [place] assists only prior to or following the activity. 4-Supervision or Touching Assistance-helper provides verbal cues and/or touching/steadying and/or contact guard assistance as patient completes activity. Assistance may be provided throughout the activity or intermittently. 3-Partial/Moderate Assistance-helper does LESS THAN HALF the effort. [place] lifts, holds or supports trunk or limbs, but provides less than half the effort. 2-Substantial/Maximal Assistance-helper does MORE THAN HALF the effort. [place] lifts or holds trunk or limbs and provides more than half the effort. 2-Pilpfccam-wzawxz does ALL the effort. Patient does none of the effort to complete the activity. Or, the assistance of 2 or more helpers is required for the patient to complete the activity. If activity was not attempted, code reason: 7-Patient Refused. 9-Not Applicable-not attempted and the patient did not perform the activity before the current illness, exacerbation or injury. 10-Not Attempted due to Environmental Limitations-(lack of equipment, weather restraints, etc.). 88-Not Attempted due to Medical Conditions or Safety Concerns. Lying to Sitting/Side of Bed(Q: 4 Sit to Stand (QC): 3 Chair/Amv-pu-Yqinu Xfer(QC): 3 Patient required CGA for supine to EOB transfer and min assist for sit to stand and transfer to the chair. Gait Training Does the Patient Walk?: Yes Distance: 3 steps Gait Assistive Device: FWW Patient ambulated 3 steps with FWW and min assist to transfer from EOB to the chair. Assessment Patient performed bed mobility and transferred to the chair. Patient required min assist for sit to stand and transfer to the chair. Patient reported signif icant fatigue after transferring to the chair. PT Short Term Goals Short Term Goals Time Frame: Dec 03, 2021 PT Shipping Inspector Goals Longterm Goals PT Shipping Inspector Goals Time Frame: Dec 07, 2021 Roll Left & Right (QC): 6 Sit to Lying (QC): 4 Lying-Sitting on Side/Bed(QC): 4 Sit to Stand (QC): 4 (SBA) Chair/Pfc-cl-Vkiyp Xfer(QC): 4 (SBA) Walk 10 feet (QC): 4 Walk 50ft with 2 Turns (QC): 4 PT Plan Problem List Problem List: Activity Tolerance, Functional Strength, Safety, Balance, Gait, Transfer, Bed Mobility, ROM Treatment/Plan Treatment Plan: Continue Plan of Care Treatment Plan: Bed Mobility, Education, Functional Activity Tatiana, Functional Strength, Gait, Safety, Therapeutic Exercise, Transfers Treatment Duration: Dec 07, 2021 Frequency: 6 times per week Estimated Hrs Per Day: .25 hour per day Patient and/or Family Agrees t: Yes Time/GCodes Time In: 718 Time Out: 735 Total Billed Treatment Time: 18 Total Billed Treatment 1 Visit FA 18 min INOCENCIA WITT PT Dec 04, 2021 09:18
[2021-12-04] MEDS ORDERED: ATOR40TA70 PO (10:12)
[2021-12-04] MEDS ORDERED: MONT-40 PO (10:12)
[2021-12-04] MEDS ORDERED: APIX5TAB PO (10:12)
[2021-12-04] MEDS ORDERED: LACT1CAP39 PO (10:12)
[2021-12-04] MEDS ORDERED: DILT240C91 PO (10:12)
[2021-12-04] MEDS ORDERED: TMSL.4C PO (10:12)
[2021-12-04] MEDS ORDERED: SUCR1TAB36 PO (10:12)
[2021-12-04] MEDS ORDERED: PANT40TA52 PO (10:12)
[2021-12-04] MEDS ORDERED: CEFD300C3 PO (10:12)
[2021-12-04] MEDS ORDERED: BUME1TAB8 PO (10:12)
[2021-12-04] MEDS ORDERED: FLUT12AE6 IH (10:12)
[2021-12-04] MEDS ORDERED: PRED5TAB PO (10:12)
[2021-12-04] MEDS ORDERED: ALB0.5V INH (10:12)
[2021-12-04] MEDS ORDERED: PRED10TA22 PO (10:12)
[2021-12-04] MEDS ORDERED: LEVO125T6 PO (10:12)
--- NOTE | 2021-12-04 10:25 | Discharge Summary ---
Discharge Summary Hospital Course Hospital Course Date of Admission: Nov 27, 2021 at 18:00 Admission Diagnosis : Severe sepsis due to pneumonia Family Physician/Provider: Molly Flores MD Date of Discharge: 12/04/21 Discharge Diagnosis: Severe sepsis due to pneumonia, acute on chronic respiratory failure with hypoxia, COPD exacerbation, acute on chronic HFpEF Hospital Course: Bharat Webbre is an 81 year old male with PMH HTN, HLD, AFib, HFpEF, COPD on home oxygen, BPH with chronic corbett, iron deficiency anemia, recent GI bleed due to gastric ulcer, who presented with shortness of breath and was admitted with severe sepsis due to recurrent pneumonia. He was treated with IV antibiotics. He also had a COPD exacerbation and was treated with steroids and breathing treatments. He was also treated for acute on chronic heart failure with preserved ejection fraction. He received diuretics. His oxygen requirement and shortness of breath improved with these treatments. He is also debilitated and was discharged to [facility] for ongoing skilled therapy needs. He should follow up with his PCP in about a week. He is chronically ill with multiple medical comorbidities. He should consider hospice care and DNR, but the patient and family did not choose to pursue that at this time. He is at high risk for readmission. He was discharged in improved, but guarded condition. Labs and Pending Lab Test: Laboratory Tests 12/04/21 04:10: Sodium Level 138, Potassium Level 3.6, Chloride Level 104, Carbon Dioxide Level 23, Anion Gap 11, Blood Urea Nitrogen 33H, Creatinine 0.88, Estimat Glomerular Filtration Rate 87, BUN/Creatinine Ratio 38, Glucose Level 106H, Calcium Level 7.8L Microbiology 11/28/21 Gram Stain - Final, Complete 11/28/21 Body Fluid Culture - Final, Complete No growth 11/27/21 Blood Culture - Final, Complete No growth Home Meds Active Prednisone 10 Mg Tab.ds.pk 10 Mg PO DAILY Take 6 tabs(60mg)daily,decrease by 1 tab(10mg)every other day. Diltiazem 24Hr ER (Diltiazem HCl) 240 Mg Cap.er.24h 240 Mg PO DAILY 30 Days Eliquis (Apixaban) 5 Mg Tablet 5 Mg PO BID 30 Days Cefdinir 300 Mg Capsule 300 Mg PO BID 5 Days Levothyroxine Sodium 125 Mcg Tablet 125 Mcg PO 0600 30 Days Culturelle (Lactobacillus Rhamnosus GG) 1 Each Capsule 1 Each PO DAILY 30 Days Albuterol Sulfate 2.5 Mg/0.5 Ml Vial.neb 2.5 Mg INH Q6H PRN 30 Days Advair Hfa 230-21 Mcg Inhaler (Fluticasone/Salmeterol) 12 Gm Hfa.aer.ad 2 Puff IH BID 30 Days Montelukast Sodium 10 Mg Tablet 10 Mg PO HS 30 Days Atorvastatin Calcium 40 Mg Tablet 40 Mg PO HS 30 Days Carafate (Sucralfate) 1 Gm Tablet 1 Gm PO ACHS 30 Days CRUSH AND PUT IM PUDDING OR APPLESAUCE Bumetanide 1 Mg Tablet 1 Mg PO DAILY 30 Days Flomax (Tamsulosin HCl) 0.4 Mg Cap 0.4 Mg PO 0800,1400 30 Days Pantoprazole Sodium 40 Mg Tablet.dr 40 Mg PO BID 30 Days Prednisone 5 Mg Tablet 5 Mg PO DAILY 30 Days RESUME AFTER STEROID TAPER Reported Diltiazem ER (Diltiazem HCl) 180 Mg Tab.er.24h 180 Mg PO 0600 Instructions to Patient/Family Assessment/Instructions Take medications as prescribed. Begin a steroid taper for COPD. Complete your course of antibiotics even if feeling better. Continue diuretics for heart failure. Follow up with your PCP. Return with worsening shortness of breath, chest pain, or if you feel like you are getting worse. Follow Up Appt.: one week with Dr. Mark Kenyon NF Admit to: [facility] Certification ([facility]) I certify that SNF services are required to be given on an inpatient basis because of the above named patient's need for prison care on a continuing basis for the conditions(s) for which he/she was receiving inpatient hospital services prior to his/her transfer to the SNF. Longterm Facility Order: Nursing Services, Bench Mover-Evaluate & Treat, Physical Therapy-Evaluate & Treat Oxygen Delivery Method: Nasal Cannula Discharge Diet: Low Sodium Diet Daily Activity as Tolerated: Yes Resuscitation Status: Full Code Lesly Escobar Dec 04, 2021 10:14 Discharge Physical Exam General: Alert, Oriented X3, Cooperative, No Acute Distress HEENT: Atraumatic, EOMI, Mucous Memb Moist/[place] Lungs: Other (wheezing left > right, no respiratory distress) Heart: No Murmurs, Other (irregular rhythm, regular rate) Abdomen: Normal Bowel Sounds, Soft, No Tenderness Extremities: Other (2+ edema) Skin: No Rashes, No Significant Lesion Neuro: Normal Speech, Other (motor weakness) Psych/Mental Status: Mental Status NL, Mood NL LESLY ESCOBAR MD Dec 04, 2021 10:24
--- NOTE | 2021-12-04 11:07 | Occupational Ther Daily Note ---
OT Current Status-Daily Note Subjective Pt up in recliner, agreeable to OT Tx. Mental Status/Objective Patient Orientation: Person, Place, Situation Attachments: Bal Catheter, Oxygen ADL-Treatment Therapy Code Descriptions/Definitions Functional [place] Measure: 0=Not Assessed/NA 4=Minimal Assistance 1=Total Assistance 5=Supervision or Setup 2=Maximal Assistance 6=Modified [place] 3=Moderate Assistance 7=Complete IndependenceSCALE: Activities may be completed with or without assistive devices. 3-Rlwyxpzvrh-vrycftx completes the activity by him/herself with no assistance from a helper. 5-Set-up or Clean-up Assistance-helper sets up or cleans up; patient completes activity. [place] assists only prior to or following the activity. 4-Supervision or Touching Assistance-helper provides verbal cues and/or touching/steadying and/or contact guard assistance as patient completes activity. Assistance may be provided throughout the activity or intermittently. 3-Partial/Moderate Assistance-helper does LESS THAN HALF the effort. [place] lifts, holds or supports trunk or limbs, but provides less than half the effort. 2-Substantial/Maximal Assistance-helper does MORE THAN HALF the effort. [place] lifts or holds trunk or limbs and provides more than half the effort. 4-Anfcloqmr-svsznu does ALL the effort. Patient does none of the effort to complete the activity. Or, the assistance of 2 or more helpers is required for the patient to complete the activity. If activity was not attempted, code reason: 7-Patient Refused. 9-Not Applicable-not attempted and the patient did not perform the activity before the current illness, exacerbation or injury. 10-Not Attempted due to Environmental Limitations-(lack of equipment, weather restraints, etc.). 88-Not Attempted due to Medical Conditions or Safety Concerns. Eating (QC): 6 (IND with breakfast.) Shower/Bathe Self (QC): 3 (Mod A with partial sponge bath. Pt able to wash BUEs, chest, abdomen and periarea, OT washed BLEs, thighs, lower legs/feet.) Upper Body Dressing (QC): 3 (Min A changing hospital gown, assist with managing lines and tying gown.) Other Treatment Pt in recliner, agreeable to OT tx. Pt completed sponge bath and changed gown as outlined above. Pt's breakfast arrived, pt able to eat independently. Post tx, pt in recliner, call light in reach and all needs met. Education OT Patient Education: Correct positioning, Energy conservation, Modified ADL techniques, Progress toward Goal/Update tx plan, Purpose of tx/functional activities, Rehab process Teaching Recipient: Patient Teaching Methods: Discussion Response to Teaching: Verbalize Understanding OT Triage Licensed Practical Nurse Goals Triage Licensed Practical Nurse Goals Time Frame: Dec 14, 2021 Oral Hygiene (QC): 5 Toileting Hygiene (QC): 4 Shower/Bathe Self (QC): 3 Upper Body Dressing (QC): 4 Lower Body Dressing (QC): 3 On/Off Footwear (QC): 3 1=Demonstrate adherence to instructed precautions during ADL tasks. 2=Patient will verbalize/demonstrate understanding of assistive devices/modifications for ADL. 3=Patient will improve strength/tolerance for activity to enable patient to perform ADL's. OT Education/Plan Problem List/Assessment Assessment: Decreased Activ Tolerance, Decreased UE Strength, Impaired Funct Balance, Impaired I ADL's, Impaired Self-Care Skills Discharge Recommendations Plan/Recommendations: Continue POC Treatment Plan/Plan of Care Patient would benefit from OT for education, treatment and training to promote independence in ADL's, mobility, safety and/or upper extremity function for ADL's. Plan of Care: ADL Retraining, Functional Mobility, Group Exercise/Act as Ind, UE Funct Exercise/Act Treatment Duration: Dec 14, 2021 Frequency: 3 times per week (3-5x/week) Estimated Hrs Per Day: .25 hour per day Agreement: Yes Rehab Potential: Fair Time/GCodes Start Time: 10:12 Stop Time: 10:22 Total Time Billed (hr/min): 10 Billed Treatment Time 1, ADL SHEREEN DENSON OT Dec 04, 2021 11:07
== END 2021-12-04 13:42 | DRG 871 ==
LOC: EDUNIT# 16:20 → ER 16:21 → CSD 18:00
PROVIDERS: ADMIT Internal Medicine; ATTEND Internal Medicine
PROC: 8E0ZXY6 Isolation (ICD-10-PCS; 2021-11-27)
PROC: 0W993ZZ Drainage of Right Pleural Cavity, Percutaneous Approach (ICD-10-PCS; principal; 2021-11-28)
DX: A41.9 Sepsis, unspecified organism (principal); J18.9 Pneumonia, unspecified organism; J96.21 Acute and chronic respiratory failure with hypoxia; I50.33 Acute on chronic diastolic (congestive) heart failure; I13.0 Hypertensive heart and chronic kidney disease with heart failure and stage 1 through stage 4 chronic kidney disease, or unspecified chronic kidney disease; J90 Pleural effusion, not elsewhere classified; J44.0 Chronic obstructive pulmonary disease with (acute) lower respiratory infection; J44.1 Chronic obstructive pulmonary disease with (acute) exacerbation; E87.2 Acidosis; Z20.822 Contact with and (suspected) exposure to COVID-19; R65.20 Severe sepsis without septic shock; N18.9 Chronic kidney disease, unspecified; D50.0 Iron deficiency anemia secondary to blood loss (chronic); I48.0 Paroxysmal atrial fibrillation; N40.1 Benign prostatic hyperplasia with lower urinary tract symptoms; R33.8 Other retention of urine; J84.10 Pulmonary fibrosis, unspecified; K64.1 Second degree hemorrhoids; K21.00 Gastro-esophageal reflux disease with esophagitis, without bleeding; E78.5 Hyperlipidemia, unspecified; E78.00 Pure hypercholesterolemia, unspecified; E03.9 Hypothyroidism, unspecified; H54.7 Unspecified visual loss; Z88.0 Allergy status to penicillin; Z79.52 Long term (current) use of systemic steroids
CPT/HCPCS: 36410; 36415; 71045; 71046; 71275; 76937; 76942; 80048; 80053; 80202; 82042; 82945; 83605; 83615; 83880; 83883; 83986; 84145; 84155; 84157; 84165; 84484; 85007; 85025; 85027; 85379; 85610; 85730; 86334; 87040; 87070; 87205; 87636; 88112; 88305; 89051; 93005; 94640; 94664; 94760; 94761; 96365

== ENCOUNTER → 2022-01-23 | Outpatient (CLI) | payer MEDICARE, OTHER ==
[~2022-01-23] MED LIST changes: +ALB0.5V INH; +APIX5TAB PO; +CATHETER FLUSH 10 ML SYR IV PRN; +CEFD300C3 PO; +DILT180T9 PO; +DILT240C91 PO; +HOLD METFORMIN - RECEIVED CONTRAST 20 ML VIAL IV SCH; +IOHEXOL 350 MG/ML 100 ML (OMNIPAQUE 350) VIAL IV ONE; +LACT1CAP39 PO; +NS 100 ML (IVPB) BAG IV ONE; +SUCR1TAB36 PO
[2022-01-23 10:20] LABS: CREATININE SERUM 0.99 MG/DL (0.60-1.30)
--- NOTE | 2022-01-23 17:29 | Diagnostic Imaging Report ---
INDICATION: 81-year-old male with bilateral carotid stenosis. COMPARISONS: None available at the time of dictation. TECHNIQUE: Post IV contrast CTA of the neck was obtained with images retroed to 0.63 mm. Multiplanar maximum intensity projected images and 3D reconstructions were provided for interpretation. FINDINGS: There is a type II aortic arch. There are some calcifications at the origin of the great vessels but no evidence of hemodynamically significant stenosis. Both common carotid arteries are widely patent. There is heavily calcified plaque at the bifurcations. This does result in approximately 50% to possibly 60% stenosis at the origin of the left ICA and 50% stenosis at the origin of the right ICA. The cervical, high cervical, petrous and cavernous segments are widely patent. There are segmental calcifications with heavily calcified plaque at the siphons but no evidence of hemodynamically significant stenosis. The visualized A1 and A2 segments, M1, M2 and M3 trifurcation vessels show normal contrast opacification. The left vertebral artery is dominant. The right vertebral artery is occluded at its origin. There is reconstitution of flow at multiple segments with subsequent areas of segmental occlusion at the V4 segment. This is all felt to be chronic. There is opacification of the V4 segment from the level of the right PICA most likely from retrograde flow from the contralateral vertebral artery. Both PICA, basilar artery, AICA, SCA and research manufacturing operator are grossly unremarkable. Lung apices show COPD with bullous emphysematous changes. Superior mediastinum is grossly unremarkable. Parapharyngeal and paraspinous soft tissues are also normal. There is cervical spondylosis with multilevel hypertrophic facet changes. IMPRESSION: 1. There is bilateral carotid bifurcation disease due to calcific atherosclerosis. This does result in 50-60% stenosis at the origin of the left ICA and 50% stenosis at the origin of the right ICA. 2. There is heavily calcified plaque in the carotid siphons but no evidence of hemodynamically significant stenosis. 3. 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 There is reconstitution of flow of additional segments via muscular collaterals. The right post PICA V4 segment is collateralized by retrograde flow from the contralateral vertebral artery. 4. A moderate cervical spondylosis with multilevel hypertrophic facet changes. 5. There is bullous emphysematous changes in the upper lobes of both lungs. Dictated by: Dictated on workstation # [id number]
== END ==
LOC: RAD 10:45
PROVIDERS: ATTEND Physician Assistant
DX: I65.23 Occlusion and stenosis of bilateral carotid arteries (principal); J43.9 Emphysema, unspecified; M47.812 Spondylosis without myelopathy or radiculopathy, cervical region
CPT/HCPCS: 36415; 70498; 82565; 84520

== ENCOUNTER 2022-05-08 17:27 | Inpatient (IN) | payer MEDICARE, OTHER ==
[~2022-05-08] VITALS: Ht 172.3 cm; Wt 82.1 kg
[2022-05-08] VITALS (9 sets, daily range): BP systolic 87–96; BP diastolic 45–53
[~2022-05-08 17:27] MED LIST changes: -CATHETER FLUSH 10 ML SYR IV PRN; -HOLD METFORMIN - RECEIVED CONTRAST 20 ML VIAL IV SCH; -IOHEXOL 350 MG/ML 100 ML (OMNIPAQUE 350) VIAL IV ONE; -NS 100 ML (IVPB) BAG IV ONE
[2022-05-08] MEDS ORDERED: ASPIRIN 81 MG CHEW (CHILDREN'S ASA) PO ONE (18:00)
--- NOTE | 2022-05-08 18:05 | ED General ---
General Stated Complaint: WEAKNESS - HEART ENZYMES UP - COUGH - CONGESTION Source of Information: Patient Exam Limitations: No Limitations (DON DESIR) History of Present Illness Date Seen by Provider: May 08, 2022 Time Seen by Provider: 18:04 Initial Comments Patient is a 81-year-old male with a history of COPD, GI bleeds, CAD, AVM p resents ED with cough, shortness of breath, weakness and fatigue. Patient was seen by his primary care physician Dr. RAYMUNDO today and had elevated troponin at 0.9 with a hemoglobin of 7.1. Was recommended to initially go to [facility] but then after she received his troponin level she recommended to come to the nearest ER. Patient denies of any nausea vomiting diarrhea or urinary symptoms. Reports a mild cough with sputum production. States he feels fatigued weak with decreased appetite. Had a negative COVID influenza swab in the office. Patient denies of any abdominal pain or chest pain, syncope. Does currently take furosemide for his CHF. Denies of any increased leg swelling. Shortness of breath is when he walks or lies down. Patient had a blood pressure at 92/50 in the office. Does have a history of peptic ulcer disease, avascular malformation in the abdomen, abdominal polyps. Denies of any fever. Concern for NSTEMI. Patient is on plavix. Patient is currently on amiodarone, Proton ix, Carafate. Patient had bleeding polyps clamped in March secondary to GI bleed. (DON DESIR) Allergies and Home Medications Allergies Coded Allergies: Penicillins (Unverified Allergy, Mild, RASH, 12/23/06) Patient Home Medication List Home Medication List Reviewed: Yes (CARLOS QUARLES MD) Albuterol Sulfate (Albuterol Sulfate) 2.5 Mg/0.5 Ml Vial.neb, 2.5 MG INH Q6H PRN for SHORTNESS OF BREATH Prescribed by: KIEL ESCOBAR on 12/04/21 1012 Apixaban (Eliquis) 5 Mg Tablet, 5 MG PO BID Prescribed by: KIEL ESCOBAR on 12/04/21 1012 Atorvastatin Calcium (Atorvastatin Calcium) 40 Mg Tablet, 40 MG PO HS Prescribed by: KIEL ESCOBAR on 12/04/21 1012 Bumetanide (Bumetanide) 1 Mg Tablet, 1 MG PO DAILY Prescribed by: KIEL ESCOBAR on 12/04/211011 Cefdinir (Cefdinir) 300 Mg Capsule, 300 MG PO BID Prescribed by: KIEL ESCOBAR on 12/04/211011 Diltiazem HCl (Diltiazem 24Hr ER) 240 Mg Cap.er.24h, 240 MG PO DAILY Prescribed by: KIEL ESCOBAR on 12/04/211011 Fluticasone/Salmeterol (Advair Hfa 230-21 Mcg Inhaler) 12 Gm Hfa.aer.ad, 2 PUFF IH BID Prescribed by: KIEL ESCOBAR on 12/04/211011 Lactobacillus Rhamnosus GG (Culturelle) 1 Each Capsule, 1 EACH PO DAILY Prescribed by: KIEL ESCOBAR on 12/04/211011 Levothyroxine Sodium (Levothyroxine Sodium) 125 Mcg Tablet, 125 MCG PO 0600 Prescribed by: KIEL ESCOBAR on 12/04/211011 Montelukast Sodium (Montelukast Sodium) 10 Mg Tablet, 10 MG PO HS Prescribed by: KIEL ESCOBAR on 12/04/211011 Pantoprazole Sodium (Pantoprazole Sodium) 40 Mg Tablet.dr, 40 MG PO BID Prescribed by: KIEL ESCOBAR on 12/04/211011 Prednisone (Prednisone) 5 Mg Tablet, 5 MG PO DAILY Prescribed by: KIEL ESCOBAR on 12/04/211011 Prednisone (Prednisone) 10 Mg Tab.ds.pk, 10 MG PO DAILY Prescribed by: KIEL ESCOBAR on 12/04/211011 Sucralfate (Carafate) 1 Gm Tablet, 1 GM PO ACHS Prescribed by: KIEL ESCOBAR on 12/04/211011 Tamsulosin HCl (Flomax) 0.4 Mg Cap, 0.4 MG PO 0800,1400 Prescribed by: KIEL ESCOBAR on 12/04/211011 Review of Systems Review of Systems Constitutional: No diaphoresis; malaise, weakness EENTM: No blurred vision, No double vision Respiratory: cough, short of breath Cardiovascular: No chest pain Gastrointestinal: No abdominal pain, No diarrhea, No nausea, No vomiting Genitourinary: No decreased output, No discharge Musculoskeletal: No back pain, No joint pain Skin: No change in color, No change in hair/nails (DON DESIR) All Other Systems Reviewed Negative Unless Noted: Yes (DON DESIR) Past Tlptebe-Ayunzz-Esogoz Hx Past Medical History Respiratory: Yes COPD Cardiac: Yes Atrial Fibrillation, High Cholesterol, Hypertension Renal Failure Gastrointestinal Bleed Endocrine: Yes Hypothyroidsim (DON DESIR) Family Medical History No Pertinent Family Hx (DON DESIR) Physical Exam Vital Signs Vital Signs - First Documented 05/08/22 05/08/22 17:54 19:00 Temp 37.8 Pulse 93 Resp 16 B/P (MAP) 84/35 (51) Pulse Ox 93 O2 Delivery Room Air O2 Flow Rate 2.00 (CARLOS QUARLES MD) Vital Signs Capillary Refill : (DON DESIR) Height, Weight, BMI Height: '" Weight: lbs. oz. kg; 31.00 BMI Method: General Appearance: No Apparent Distress, WD/WN Eyes: Bilateral Eye Normal Inspection, Bilateral Eye PERRL, Bilateral Eye EOMI HEENT: PERRL/EOMI, TMs Normal, Normal ENT Inspection, Pharynx Normal Neck: Full Range of Motion, Normal Inspection, Non Tender Respiratory: Chest Non Tender, Lungs Clear, Normal Breath Sounds Cardiovascular: Regular Rate, Rhythm, No Edema, No Gallop, No JVD Gastrointestinal: Normal Bowel Sounds, No Organomegaly, No Pulsatile Mass, Non Tender Rectal: Heme Positive Stool Back: Normal Inspection, No CVA Tenderness Extremity: Normal Capillary Refill, Normal Inspection, Normal Range of Motion, Non Tender Neurologic/Psychiatric: Alert, Oriented x3, No Motor/Sensory Deficits, Normal Mood/Affect, 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-XII Norm as Tested Skin: Normal Color, Warm/Dry (DON DESIR) Focused Exam Sepsis Stage: Sepsis Possible Source: Pulmonary Lactate Level 05/08/22 20:11: Lactic Acid Level 1.66 (CARLOS QUARLES MD) Time of Focused Exam: 21:05 Respiratory: Crackles (Bibasilar), Decreased Breath Sounds Cardiovascular: Regular Rate, Rhythm, No Murmur Skin: normal color, warm/dry Lactic Acid Level Laboratory Tests Test 05/08/22 20:11 Lactic Acid Level 1.66 MMOL/L (0.50-2.00) (CARLOS QUARLES MD) Within 3hrs of presentation: Admin ABX, Blood cultures prior to ABX's, Focus exam, Lactate level (CARLOS QUARLES MD) Progress/Results/Core Measures Suspected Sepsis SIRS Temperature: Pulse: Respiratory Rate: Laboratory Tests 05/08/22 18:05: White Blood Count 13.5H Blood Pressure / Mean: 05/08/22 20:11: Lactic Acid Level 1.66 Laboratory Tests 05/08/22 18:05: Creatinine 1.48H, INR Comment 1.5H, Platelet Count 614H, Total Bilirubin 0.6 (DON DESIR) Results/Orders Lab Results Laboratory Tests Test 05/08/22 18:05 05/08/22 19:37 05/08/22 20:11 05/08/22 20:50 Range/Units White Blood Count 13.5 H 4.3-11.0 10^3/uL Red Blood Count 2.47 L 4.30-5.52 10^6/uL Hemoglobin 6.4 *L 13.3-17.7 g/dL Hematocrit 21 L 40-54 % Mean Corpuscular Volume 84 80-99 fL Mean Corpuscular Hemoglobin 26 25-34 pg Mean Corpuscular Hemoglobin Concent 31 L 32-36 g/dL Red Cell Distribution Width 17.6 H 10.0-14.5 % Platelet Count 614 H 130-400 10^3/uL Mean Platelet Volume 9.6 9.0-12.2 fL Immature Granulocyte % (Auto) 1 % Neutrophils (%) (Auto) 83 H 42-75 % Lymphocytes (%) (Auto) 2 L 12-44 % Monocytes (%) (Auto) 14 H 0-12 % Eosinophils (%) (Auto) 0 0-10 % Basophils (%) (Auto) 0 0-10 % Neutrophils # (Auto) 11.2 H 1.8-7.8 10^3/uL Lymphocytes # (Auto) 0.3 L 1.0-4.0 10^3/uL Monocytes # (Auto) 1.9 H 0.0-1.0 10^3/uL Eosinophils # (Auto) 0.0 0.0-0.3 10^3/uL Basophils # (Auto) 0.0 0.0-0.1 10^3/uL Immature Granulocyte # (Auto) 0.1 0.0-0.1 10^3/uL Neutrophils % (Manual) 73 % Lymphocytes % (Manual) 1 % Monocytes % (Manual) 14 % Eosinophils % (Manual) 0 % Basophils % (Manual) 0 % Band Neutrophils 12 % Nucleated Red Blood Cells 1 Polychromasia MODERATE Hypochromasia MODERATE Anisocytosis MODERATE Target Cells SLIGHT Prothrombin Time 18.1 H 12.2-14.7 SEC INR Comment 1.5 H 0.8-1.4 Activated Partial Thromboplast Time 39 H 24-35 SEC Sodium Level 137 135-145 MMOL/L Potassium Level 3.1 L 3.6-5.0 MMOL/L Chloride Level 99 98-107 MMOL/L Carbon Dioxide Level 27 21-32 MMOL/L Anion Gap 11 5-14 MMOL/L Blood Urea Nitrogen 38 H 7-18 MG/DL Creatinine 1.48 H 0.60-1.30 MG/DL Estimat Glomerular Filtration Rate 48 BUN/Creatinine Ratio 26 Glucose Level 123 H 70-105 MG/DL Calcium Level 8.6 8.5-10.1 MG/DL Corrected Calcium 9.2 8.5-10.1 MG/DL Magnesium Level 2.1 1.6-2.4 MG/DL Total Bilirubin 0.6 0.1-1.0 MG/DL Aspartate Amino Transf (AST/SGOT) 69 H 5-34 U/L Alanine Aminotransferase (ALT/SGPT) 112 H 0-55 U/L Alkaline Phosphatase 87 40-136 U/L Myoglobin 217.0 H 10.0-92.0 NG/ML Troponin I 1.090 *H <0.028 NG/ML C-Reactive Protein High Sensitivity 27.39 H 0.00-0.50 MG/DL B-Type Natriuretic Peptide 1492.2 H <100.0 PG/ML Total Protein 6.2 L 6.4-8.2 GM/DL Albumin 3.3 3.2-4.5 GM/DL Lipase 13 8-78 U/L Procalcitonin 0.58 H <0.10 NG/ML Influenza Type A (RT-PCR) Not Detected Not Detecte Influenza Type B (RT-PCR) Not Detected Not Detecte SARS-CoV-2 RNA (RT-PCR) Not Detected Not Detecte Lactic Acid Level 1.66 0.50-2.00 MMOL/L Urine Color YELLOW Urine Clarity CLEAR Urine pH 6.0 5-9 Urine Specific [place] 1.015 L 1.016-1.022 Urine Protein NEGATIVE NEGATIVE Urine Glucose (UA) NEGATIVE NEGATIVE Urine Ketones NEGATIVE NEGATIVE Urine Nitrite POSITIVE H NEGATIVE Urine Bilirubin NEGATIVE NEGATIVE Urine Urobilinogen 0.2 < = 1.0 MG/DL Urine Leukocyte Esterase NEGATIVE NEGATIVE Urine RBC (Auto) NEGATIVE NEGATIVE Urine RBC 0-2 /HPF Urine WBC 0-2 /HPF Urine Squamous Epithelial Cells NONE /HPF Urine Renal Epithelial Cells NONE /HPF Urine Crystals NONE /LPF Urine Bacteria TRACE /HPF Urine Casts PRESENT /LPF Urine Hyaline Casts 2-5 H /LPF Urine Mucus NEGATIVE /LPF Urine Culture Indicated YES (CARLOS QUARLES MD) Medications Given in ED (CARLOS QUARLES MD) Vital Signs/I&O 05/08/22 05/08/22 05/08/22 05/08/22 17:54 19:00 19:05 19:10 Temp 37.8 37.8 37.8 37.8 Pulse 93 89 89 89 Resp 16 25 23 24 B/P (MAP) 84/35 (51) 96/49 95/50 91/53 Pulse Ox 93 100 100 99 O2 Delivery Room Air Nasal Cannula Nasal Cannula Nasal Cannula O2 Flow Rate 2.00 2.00 2.00 05/08/22 05/08/22 05/08/22 05/08/22 19:15 19:30 21:06 21:11 Temp 37.8 37.8 37.8 37.8 Pulse 87 85 81 82 Resp 21 21 16 15 B/P (MAP) 90/45 87/49 91/49 94/53 Pulse Ox 99 99 98 98 O2 Delivery Nasal Cannula Nasal Cannula Nasal Cannula Nasal Cannula O2 Flow Rate 2.00 2.00 2.00 2.00 05/08/22 21:16 Temp 37.8 Pulse 82 Resp 23 B/P (MAP) 92/50 Pulse Ox 98 O2 Delivery Nasal Cannula O2 Flow Rate 2.00 (CARLOS QUARLES MD) Vital Signs/I&O Capillary Refill : (DON DESIR) Progress Note #1: Time: 21:09 Progress Note Patient presented to the emergency room by private vehicle accompanied by family. He originally intended to present to [facility] because of specialty care he receives there. However, he was directed by Dr. RAYMUNDO to present to the nearest hospital when she discovered his troponin was elevated. Patient denies any chest pain and his EKG is relatively unchanged from prior. There is chronic ST depression with no new ST elevation. COLIN Grant has been managing this case with my assistance. I have seen the patient and found him to be alert and oriented. Heart has regular rate and rhythm. Lung sounds are diminished with faint crackles in the bases. Labs would suggest infectious illness. Chest x-ray could represent pneumonia. Patient says he has had some productive sputum similar to prior pneumonia episodes. Urine was relatively unremarkable in regard to pyuria. Blood culture and lactic acid have been obtained. Cefepime has been ordered for initial antibiotic therapy. Patient has severe anemia with a hemoglobin of 6.4. 2 units of PRBC are presently infusing. Progress Note #2: Time: 21:32 Progress Note Blood transfusion is still in progress. The majority of his recent systolic blood pressures have been in the 90s. He reports feeling a little bit better with transfusion in progress. I discussed the case with Dr. Chase who agrees to admission to the ICU. I have also discussed the [facility] is agreeable to helping manage his case. Case was also discussed with Dr. Ford. Consult for Dr. Colon will be added to the bridging orders for the morning. Oral potassium will be given for hypokalemia treatment. I discussed CODE STATUS with patient and family. We discussed risks and benefits of resuscitation efforts. I expressed concern about the risks of worsening overall health should he survive a resuscitation effort. He requested to remain a full code but states he would not want to be kept on a ventilator for a prolonged period of time. Patient is being treated for pneumonia. Cefepime was ordered for initial treatment. Although he has had hypotension, I do not renate nabil he is in septic shock as his lactic acid is normal. We have avoided large- volume fluid replacement at this time due to his history of heart failure and are providing the transfusions in the lieu of fluid boluses. Severe sepsis orders will be placed on the chart as a precaution. Hemoccult test was negative and there is no evidence of active bleed at this time. We did attempt a transfer to [facility] in [place] due to his history of GI bleed. However, because he is not demonstrating any active bleeding at this time, he does not absolutely require transfer. Neither [facility] nor [facility] have beds available for transfer tonight. A longer distance transfer cannot be justified at this moment. (CARLOS QUARLES MD) Diagnostic Imaging Diagonstic Imaging: Xray Plain Films/CT/US/NM/MRI: chest Comments Chest x-ray viewed by me and report reviewed. See report below: NAME: ARNAV GARAY [facility] REC#: [id number] PT STATUS: REG ER : 1940 PHYSICIAN: DON DESIR ADMIT DATE: 05/08/22/ER Signed Date of Exam:05/08/22 CHEST 1 VIEW, AP/PA ONLY EXAMINATION: Chest radiograph, portable AP view. DATE: 05/08/2022 6:15 PM INDICATION: 81-year-old male, chest pain. COMPARISON: December 06, 2021. FINDINGS: Heart size and mediastinal contours are unchanged. There is no identified pneumothorax. There is blunting of the right lateral costophrenic angle. There is nonspecific bibasilar airspace consolidation. There are interstitial opacities. Overall aeration of the right mid and lower lung zone in particular does appear improved since December 06, 2021. IMPRESSION: 1. Nonspecific bibasilar airspace consolidation which may reflect pleural effusions, infiltrate, and/or atelectasis. 2. Additional interstitial opacities with a mid and lower lung zone predominance most likely reflect pulmonary interstitial edema. Atypical infection would be the primary differential diagnostic consideration. Dictated by: Dictated on workstation # [id number] Dict: 05/08/221815 Trans: 05/08/221826 CVB [id number] Interpreted by: KADEN GARCIA MD Electronically signed by: KADEN GARCIA MD 05/08/221826 (CARLOS QUARLES MD) Departure Communication (Admissions) Time/Spoke to Admitting Phy: 21:06 Dr. Chase Time/Spoke to Consulting Phy: 21:20 Dr. Ford (CARLOS QUARLES MD) Communication (PCP) Patient on arrival complaining of cough, shortness of breath weakness and fatigue. Patient was hypotensive with blood pressure in the 90s systolic. Maintaining just above 65 map. EKG did noted some ST depression in the anterior lateral leads. Very comparable to last EKG we have on file in January. Patient had an elevated troponin of 1 and a BNP of 1500. Elevated white blood count at 13 elevated CRP with a slight increase in procalcitonin. Chest x-ray concerning for pneumonia versus CHF. History of sepsis due to pneumonia. States this feels very similar to when he had pneumonia. Last echocardiogram was in October of a ejection fraction of 55 to 60%. Concerning for more of an NSTEMI type presentation at this time with severe anemia of 6.4. Was started on 2 units of packed red blood cell. This should improve his hemoglobin as well as his blood pressure. Hemoccult test was negative. May need further evaluation with EGD or colonoscopy by surgery. Strong history of GI bleed secondary to polyps and AVMs. History of cardiac catheterization back in December at [facility] Dr. Ansari. Patient does take 40 mg of Lasix daily. Patient would not be a catheterization candidate secondary to the anemia and or anticoagulants at this time. Patient was started on cefepime. Blood cultures pending with normal lactic acid. Urinalysis positive for nitrites. Patient was discussed with Dr. Workman who took over care. I did discuss patient with Dr. Ford cardiology who recommend continue the Lasix and treat the anemia. Started to see some improvement in blood pressure. (DON DESIR) Impression Primary Impression: Severe anemia Additional Impressions: Pneumonia Qualified Codes: J18.9 - Pneumonia, unspecified organism Hypotension Qualified Codes: I95.9 - Hypotension, unspecified Hypokalemia History of GI bleed Elevated troponin Disposition: ADMITTED INPATIENT Condition: Improved Admissions Decision to Admit Reason: Admit from ER (General) Decision to Admit/Date: May 08, 2022 Time/Decision to Admit Time: 21:06 (CARLOS QUARLES MD) Departure-Patient Inst. Referrals: GRIS RAYMUNDO MD (PCP/Family) Primary Care Physician Copy Copies To 1: GRIS RAYMUNDO MD, ZACHARY A PA May 08, 2022 18:05 CARLOS QUARLES MD May 08, 2022 21:14
[2022-05-08 18:11] LABS: BASOPHILS % (AUTO) 0 % (0-10); EOSINOPHILS % (AUTO) 0 % (0-10); HEMATOCRIT 21 % (40-54); LYMPHOCYTES # (AUTO) 0.3 10^3/uL (1.0-4.0); LYMPHOCYTES % (AUTO) 2 % (12-44); MEAN CORPUSCULAR HEMOGLOBIN 26 pg (25-34); MEAN CORPUSCULAR HGB CONC 31 g/dL (32-36); MEAN CORPUSCULAR VOLUME 84 fL (80-99); MEAN PLATELET VOLUME 9.6 fL (9.0-12.2); MONOCYTES # (AUTO) 1.9 10^3/uL (0.0-1.0); MONOCYTES % (AUTO) 14 % (0-12); NEUTROPHILS # (AUTO) 11.2 10^3/uL (1.8-7.8); NEUTROPHILS % (AUTO) 83 % (42-75); PLATELET COUNT 614 10^3/uL (130-400); WHITE BLOOD COUNT 13.5 10^3/uL (4.3-11.0)
[2022-05-08] MEDS ORDERED: NS IV 500 ML 500 ML IV STA (18:16)
[2022-05-08 18:18] LABS: HEMOGLOBIN 6.4 g/dL (13.3-17.7)
--- NOTE | 2022-05-08 18:20 | Diagnostic Imaging Report ---
EXAMINATION: Chest radiograph, portable AP view. DATE: 05/08/2022 6:15 PM INDICATION: 81-year-old male, chest pain. COMPARISON: December 06, 2021. FINDINGS: Heart size and mediastinal contours are unchanged. There is no identified pneumothorax. There is blunting of the right lateral costophrenic angle. There is nonspecific bibasilar airspace consolidation. There are interstitial opacities. Overall aeration of the right mid and lower lung zone in particular does appear improved since December 06, 2021. IMPRESSION: 1. Nonspecific bibasilar airspace consolidation which may reflect pleural effusions, infiltrate, and/or atelectasis. 2. Additional interstitial opacities with a mid and lower lung zone predominance most likely reflect pulmonary interstitial edema. Atypical infection would be the primary differential diagnostic consideration. Dictated by: Dictated on workstation # [id number]
[2022-05-08 18:22] LABS: ALBUMIN 3.3 GM/DL (3.2-4.5)
[2022-05-08 18:23] LABS: POTASSIUM 3.1 MMOL/L (3.6-5.0)
[2022-05-08 18:24] LABS: CALCIUM 8.6 MG/DL (8.5-10.1)
[2022-05-08 18:25] LABS: TOTAL PROTEIN 6.2 GM/DL (6.4-8.2)
[2022-05-08 18:27] LABS: BILIRUBIN,TOTAL 0.6 MG/DL (0.1-1.0)
[2022-05-08 18:28] LABS: INR 1.5 (0.8-1.4); PROTHROMBIN TIME PATIENT 18.1 SEC (12.2-14.7)
[2022-05-08 18:29] LABS: CREATININE SERUM 1.48 MG/DL (0.60-1.30)
[2022-05-08 18:32] LABS: MAGNESIUM 2.1 MG/DL (1.6-2.4)
[2022-05-08 18:36] LABS: ANISOCYTOSIS MODERATE; BAND NEUTROPHILS 12 %; BASOPHILS % (MANUAL) 0 %; EOSINOPHILS % (MANUAL) 0 %; HYPOCHROMASIA MODERATE; LYMPHOCYTES % (MANUAL) 1 %; MONOCYTES % (MANUAL) 14 %; NEUTROPHILS % (MANUAL) 73 %; NUCLEATED RED BLOOD CELLS 1; POLYCHROMASIA MODERATE; TARGET CELLS SLIGHT
[2022-05-08] MEDS ORDERED: CEFEPIME INJECTION 2,000 MG in NS (IVPB) 50 ML IV ONE (20:45)
[2022-05-08 20:54] LABS: BILIRUBIN,URINE NEGATIVE (NEGATIVE); CLARITY,URINE CLEAR; COLOR,URINE YELLOW; GLUCOSE, URINE (UA) NEGATIVE (NEGATIVE); KETONES,URINE NEGATIVE (NEGATIVE); LEUKOCYTE ESTERASE ,URINE NEGATIVE (NEGATIVE); NITRITE,URINE POSITIVE (NEGATIVE); PROTEIN,URINE NEGATIVE (NEGATIVE)
[2022-05-08 21:01] LABS: BACTERIA,URINE TRACE /HPF; RBC,URINE 0-2 /HPF; WBC,URINE 0-2 /HPF
[2022-05-08] MEDS ORDERED: KCL 10 MEQ TAB (MICRO K) PO ONE (22:00)
[2022-05-08] MEDS ORDERED: LACTATED RINGERS 1,000 ML IV ONE (22:56)
[2022-05-08] MEDS: LACTATED RINGERS 1,000 ML IV SCH (23:00)
[2022-05-08] MEDS ORDERED: CEFEPIME 1 GM/10 ML (MAXIPIME) VIAL ONE (23:25)
[2022-05-08] MEDS ORDERED: NS (IVPB) 50 ML ONE (23:25)
[2022-05-08] MEDS ORDERED: RT-ALBUTEROL/IPRATROPIUM 3 ML (DUONEB) VIAL INH PRN (23:30)
[2022-05-09] MEDS ORDERED: fentaNYL INJ 100 MCG/2 ML AMP IV PRN (02:00)
[2022-05-09] MEDS ORDERED: ONDANSETRON 4 MG/2 ML (SDV) Z0FRAN IV PRN (02:00)
[2022-05-09] MEDS ORDERED: LORazepam INJ 2 MG/ML (ATIVAN) VIAL IV PRN (02:00)
[2022-05-09] MEDS ORDERED: EPINEPHrine 1 MG INJECTION 4 MG in NS (IVPB) 248 ML IV SCH (02:00)
[2022-05-09] MEDS ORDERED: ACETAMINOPHEN 500 MG TAB (TYLENOL) PO PRN (02:00)
[2022-05-09] MEDS: NOREPINEPHRINE 8 MG/250 ML 250 ML IV SCH ×2 (02:11→18:54)
[2022-05-09] MEDS: VASOPRESSIN INJECTION 20 UNIT in NS (IVPB) 100 ML IV SCH ×2 (02:11→13:10)
[2022-05-09 02:14] LABS: HEMATOCRIT 27 % (40-54); HEMOGLOBIN 8.7 g/dL (13.3-17.7); MEAN CORPUSCULAR HEMOGLOBIN 28 pg (25-34); MEAN CORPUSCULAR HGB CONC 33 g/dL (32-36); MEAN CORPUSCULAR VOLUME 85 fL (80-99); WHITE BLOOD COUNT 11.8 10^3/uL (4.3-11.0)
[2022-05-09 02:15] LABS: BASOPHILS % (AUTO) 0 % (0-10); EOSINOPHILS % (AUTO) 0 % (0-10); LYMPHOCYTES # (AUTO) 0.5 X 10^3 (1.0-4.0); LYMPHOCYTES % (AUTO) 4 % (12-44); MEAN PLATELET VOLUME 9.8 fL (9.0-12.2); MONOCYTES # (AUTO) 1.9 X 10^3 (0.0-1.0); MONOCYTES % (AUTO) 16 % (0-12); NEUTROPHILS # (AUTO) 9.3 X 10^3 (1.8-7.8); NEUTROPHILS % (AUTO) 79 % (42-75); PLATELET COUNT 487 10^3/uL (130-400)
[2022-05-09] MEDS: RT-ALBUTEROL/IPRATROPIUM 3 ML (DUONEB) VIAL INH SCH ×6 (02:29→22:07)
[2022-05-09 02:36] LABS: POTASSIUM 3.2 MMOL/L (3.6-5.0)
[2022-05-09 02:37] LABS: CALCIUM 8.4 MG/DL (8.5-10.1)
[2022-05-09 02:39] LABS: TOTAL PROTEIN 5.5 GM/DL (6.4-8.2)
[2022-05-09 02:40] LABS: BILIRUBIN,TOTAL 2.7 MG/DL (0.1-1.0)
[2022-05-09 02:42] LABS: CREATININE SERUM 1.49 MG/DL (0.60-1.30); PHOSPHORUS 2.8 MG/DL (2.3-4.7)
[2022-05-09 02:45] LABS: MAGNESIUM 2.1 MG/DL (1.6-2.4)
[2022-05-09] MEDS ORDERED: NS IV 500 ML 500 ML IV PRN (03:00)
[2022-05-09] MEDS: CEFEPIME INJECTION 1,000 MG in NS (IVPB) 50 ML IV SCH ×3 (05:05→22:12)
[2022-05-09] MEDS: LACTATED RINGERS 1,000 ML IV SCH ×3 (05:06→20:15)
[2022-05-09] MEDS ORDERED: POTASSIUM CL 10MEQ/50ML IVPB 50 ML IV SCH ×2 (05:30→06:00)
[2022-05-09] MEDS: MAGNESIUM 1 GM/100 ML IVPB 100 ML IV SCH (05:32)
[2022-05-09] MEDS: KCL 20 MEQ TAB (K-DUR) PO SCH ×3 (05:32→11:48)
[2022-05-09 07:37] LABS: TRIGLYCERIDES 68 MG/DL (<150); VLDL CHOLESTEROL 14 MG/DL (5-40)
[2022-05-09 07:41] LABS: CHOLESTEROL 73 MG/DL (< 200)
[2022-05-09 07:42] LABS: HDL CHOLESTEROL 28 MG/DL (40-60)
[2022-05-09] MEDS ORDERED: ENOXAPARIN 40 MG/0.4 ML (LOVENOX) SYR SC SCH (08:00)
--- NOTE | 2022-05-09 08:39 | Tele-ICU Progress Note ---
Subjective Date Seen by a Provider: May 09, 2022 Time Seen by a Provider: 07:35 Subjective/Events-last exam This virtual visit was conducted using real time audio/video. Thank you for asking us to see this patient for respiratory insufficiency due to COPD and pna. Pt admitted w HB 6.4, OB+ stool, elev troponin. Recent events: PMH: COPD, GIB, AVM, CAD, HL, BPH, hypothy. SH: smoking history: Y FH: Non-contributory ROS: as in HPI. PE: Appears comfortable on camera. Pale. VSS. O2 sat 98% on 2 LPM. HEENT: No obvious masses, adenopathy or JVD. Chest: clear to auscultation. CV: RRR S1 S2 No murmur or added sounds. Abd: Non-tender. Bowel sounds Y. : Unremarkable. Bal N. CARD LACER JACQUARD/psychiatric: Grossly intact. No obvious focal findings. Extremities: No edema. Capillary refill < 3 seconds. Skin: unremarkable. Results: Elevated BUN 40, Creat 1.49, WCC 11.8. Decreased Hb 8.7, K 3.2. CXR: Bibasal infilts., hyperinflated. Available chart/ vitals / labs / images reviewed. Video assessment done using teleICU camera, rest of exam as per RN. A/P: Respiratory insufficiency: Continue present management with O2, Duonebs Monitor for increasing oxygenation needs and/or need for intubation. Critical Care: critically ill patient. Cont.PRN transfusion, abx, KCl. Discussed with KATHY Truong and RT. Asked RN to reach out to eICU if any questions or concerns later. Time spent with patient/coordination of care with other health professionals (mins): 20 Sepsis Event Evaluation Height, Weight, BMI Height: '" Weight: lbs. oz. kg; 26.64 BMI Method: Focused Exam Lactate Level 05/08/22 20:11: Lactic Acid Level 1.66 Time of Focused Exam: 21:05 Exam Exam Patient acknowledged, consented, and participated in this virtual visit which was conducted using real time audio/video Vital Signs Date Time Temp Pulse Resp B/P (MAP) Pulse Ox O2 Delivery O2 Flow Rate FiO2 05/09/22 07:48 36.0 05/09/22 07:18 100 Nasal Cannula 2.00 05/09/22 07:00 82 05/09/22 06:00 81 26 101/56 100 Nasal Cannula 2.00 05/09/22 05:00 88 25 97/53 100 Nasal Cannula 2.00 05/09/22 04:00 80 25 98/55 99 Nasal Cannula 2.00 05/09/22 04:00 37.1 Nasal Cannula 2.00 05/09/22 04:00 37.0 18 Nasal Cannula 2.00 05/09/22 03:20 Nasal Cannula 2.00 05/09/22 03:00 82 21 105/57 99 Nasal Cannula 2.00 05/09/22 02:30 100 Nasal Cannula 2.00 05/09/22 02:11 70 05/09/22 02:11 70 05/09/22 02:00 83 28 106/61 99 Nasal Cannula 2.00 05/09/22 01:00 81 05/09/22 01:00 81 27 92/67 99 Nasal Cannula 2.00 05/09/22 00:30 84 24 102/51 99 Nasal Cannula 2.00 05/09/22 00:00 Nasal Cannula 2.00 05/09/22 00:00 84 21 21/100 100 Nasal Cannula 2.00 05/08/22 23:45 82 21 94/43 100 Nasal Cannula 2.00 05/08/22 23:30 81 20 96/54 100 Nasal Cannula 2.00 05/08/22 23:15 86 14 102/54 99 Nasal Cannula 2.00 05/08/22 23:07 37.1 80 95 05/08/22 23:02 37.1 80 18 95/50 99 Nasal Cannula 2.00 05/08/22 23:00 Nasal Cannula 2.00 05/08/22 22:55 82 05/08/22 21:16 37.8 82 23 92/50 98 Nasal Cannula 2.00 05/08/22 21:11 37.8 82 15 94/53 98 Nasal Cannula 2.00 05/08/22 21:06 37.8 81 16 91/49 98 Nasal Cannula 2.00 05/08/22 19:30 37.8 85 21 87/49 99 Nasal Cannula 2.00 05/08/22 19:15 37.8 87 21 90/45 99 Nasal Cannula 2.00 05/08/22 19:10 37.8 89 24 91/53 99 Nasal Cannula 2.00 05/08/22 19:05 37.8 89 23 95/50 100 Nasal Cannula 2.00 05/08/22 19:00 37.8 89 25 96/49 100 Nasal Cannula 2.00 05/08/22 17:54 37.8 93 16 84/35 (51) 93 Room Air I & O 05/09/22 07:00 Intake Total 1300 ml Output Total 525 ml Balance 775 ml Height & Weight Height: '" Weight: lbs. oz. kg; 26.64 BMI Method: General Appearance: No Apparent Distress, WD/WN HEENT: PERRL/EOMI, TMs Normal, Normal ENT Inspection, Pharynx Normal Neck: Full Range of Motion, Normal Inspection, Non Tender Respiratory: Crackles (Bibasilar), Decreased Breath Sounds Cardiovascular: Regular Rate, Rhythm, No Murmur Capillary Refill: Less Than 3 Seconds Extremity: Normal Capillary Refill, Normal Inspection, Normal Range of Motion, Non Tender Neurologic/Psychiatric: Alert, Oriented x3, No Motor/Sensory Deficits, Normal Mood/Affect, template maker II-XII Norm as Tested Skin: Normal Color, Warm/Dry Results Lab Laboratory Tests 05/08/22 18:05 05/08/22 23:50 05/09/22 01:25 Assessment/Plan Assessment/Plan See free text. Critical Care: Critically Ill Patient MIKAYLA RICHARDS MD May 09, 2022 08:39
--- NOTE | 2022-05-09 08:46 | Consultation-Cardiology ---
HPI-Cardiology Cardiology Consultation Date of Consultation 05/09/22 Date of Admission Time Seen by Provider: 08:37 Indication: Non-ST elevation myocardial infarction HPI 81 years old gentleman with extensive cardiac history, coronary artery disease, recurrent GI bleed and COPD. Patient presented with generalized fatigue, cough productive of yellowish sputum. He was noted to have pulmonary infiltrate on his chest x-ray. Noted to have severe anemia and hypotension. Denied any chest pain. No palpitation. No syncope or near syncopal episodes. He was noted to have elevation in troponin level. On my evaluation he was laying down in bed comfortably, denied any active shortness of breath. Using nasal cannula oxygen. No chest pain. Home Medications & Allergies Allergies: Coded Allergies: Penicillins (Unverified Allergy, Mild, RASH, 12/23/06) Home Medication List Reviewed: Yes [id number] Hx Patient Social History Marital Status: Employed/Student: retired Smoking Status: Former Smoker Have you traveled recently?: No Alcohol Use?: No Past Medical History Discussed below Family Medical History Significant Family History: No Pertinent Family Hx Family Medical Hx Noncontributory Review of Systems-General Review of Systems Constitutional: see HPI; No diaphoresis; malaise, weakness EENTM: see HPI; No blurred vision, No double vision Respiratory: see HPI, cough; No dyspnea on exertion, No hemoptysis, No orthopnea; phlegm, short of breath; No stridor, No wheezing, No other Cardiovascular: see HPI; No chest pain, No edema, No Hx of Intervention, No palpitations, No syncope, No vascular heart diseas, No other Gastrointestinal: no symptoms reported, see HPI; No abdominal pain, No diarrhea, No nausea, No vomiting Genitourinary: no symptoms reported, see HPI; No decreased output, No discharge Musculoskeletal: no symptoms reported, see HPI; No back pain, No joint pain Skin: no symptoms reported, see HPI; No change in color, No change in hair/nails Psychiatric/Neurological: No Symptoms Reported, See HPI All Other Systems Reviewed Negative Unless Noted: Yes Reviewed Test Results Reviewed Test Results Lab Laboratory Tests Test 05/08/22 18:05 05/08/22 19:37 05/08/22 20:11 05/08/22 20:50 Range/Units White Blood Count 13.5 H 4.3-11.0 10^3/uL Red Blood Count 2.47 L 4.30-5.52 10^6/uL Hemoglobin 6.4 *L 13.3-17.7 g/dL Hematocrit 21 L 40-54 % Mean Corpuscular Volume 84 80-99 fL Mean Corpuscular Hemoglobin 26 25-34 pg Mean Corpuscular Hemoglobin Concent 31 L 32-36 g/dL Red Cell Distribution Width 17.6 H 10.0-14.5 % Platelet Count 614 H 130-400 10^3/uL Mean Platelet Volume 9.6 9.0-12.2 fL Immature Granulocyte % (Auto) 1 % Neutrophils (%) (Auto) 83 H 42-75 % Lymphocytes (%) (Auto) 2 L 12-44 % Monocytes (%) (Auto) 14 H 0-12 % Eosinophils (%) (Auto) 0 0-10 % Basophils (%) (Auto) 0 0-10 % Neutrophils # (Auto) 11.2 H 1.8-7.8 10^3/uL Lymphocytes # (Auto) 0.3 L 1.0-4.0 10^3/uL Monocytes # (Auto) 1.9 H 0.0-1.0 10^3/uL Eosinophils # (Auto) 0.0 0.0-0.3 10^3/uL Basophils # (Auto) 0.0 0.0-0.1 10^3/uL Immature Granulocyte # (Auto) 0.1 0.0-0.1 10^3/uL Neutrophils % (Manual) 73 % Lymphocytes % (Manual) 1 % Monocytes % (Manual) 14 % Eosinophils % (Manual) 0 % Basophils % (Manual) 0 % Band Neutrophils 12 % Nucleated Red Blood Cells 1 Polychromasia MODERATE Hypochromasia MODERATE Anisocytosis MODERATE Target Cells SLIGHT Prothrombin Time 18.1 H 12.2-14.7 SEC INR Comment 1.5 H 0.8-1.4 Activated Partial Thromboplast Time 39 H 24-35 SEC Sodium Level 137 135-145 MMOL/L Potassium Level 3.1 L 3.6-5.0 MMOL/L Chloride Level 99 98-107 MMOL/L Carbon Dioxide Level 27 21-32 MMOL/L Anion Gap 11 5-14 MMOL/L Blood Urea Nitrogen 38 H 7-18 MG/DL Creatinine 1.48 H 0.60-1.30 MG/DL Estimat Glomerular Filtration Rate 48 BUN/Creatinine Ratio 26 Glucose Level 123 H 70-105 MG/DL Calcium Level 8.6 8.5-10.1 MG/DL Corrected Calcium 9.2 8.5-10.1 MG/DL Magnesium Level 2.1 1.6-2.4 MG/DL Total Bilirubin 0.6 0.1-1.0 MG/DL Aspartate Amino Transf (AST/SGOT) 69 H 5-34 U/L Alanine Aminotransferase (ALT/SGPT) 112 H 0-55 U/L Alkaline Phosphatase 87 40-136 U/L Myoglobin 217.0 H 10.0-92.0 NG/ML Troponin I 1.090 *H <0.028 NG/ML C-Reactive Protein High Sensitivity 27.39 H 0.00-0.50 MG/DL B-Type Natriuretic Peptide 1492.2 H <100.0 PG/ML Total Protein 6.2 L 6.4-8.2 GM/DL Albumin 3.3 3.2-4.5 GM/DL Lipase 13 8-78 U/L Procalcitonin 0.58 H <0.10 NG/ML Influenza Type A (RT-PCR) Not Detected Not Detecte Influenza Type B (RT-PCR) Not Detected Not Detecte SARS-CoV-2 RNA (RT-PCR) Not Detected Not Detecte Lactic Acid Level 1.66 0.50-2.00 MMOL/L Urine Color YELLOW Urine Clarity CLEAR Urine pH 6.0 5-9 Urine Specific [place] 1.015 L 1.016-1.022 Urine Protein NEGATIVE NEGATIVE Urine Glucose (UA) NEGATIVE NEGATIVE Urine Ketones NEGATIVE NEGATIVE Urine Nitrite POSITIVE H NEGATIVE Urine Bilirubin NEGATIVE NEGATIVE Urine Urobilinogen 0.2 < = 1.0 MG/DL Urine Leukocyte Esterase NEGATIVE NEGATIVE Urine RBC (Auto) NEGATIVE NEGATIVE Urine RBC 0-2 /HPF Urine WBC 0-2 /HPF Urine Squamous Epithelial Cells NONE /HPF Urine Renal Epithelial Cells NONE /HPF Urine Crystals NONE /LPF Urine Bacteria TRACE /HPF Urine Casts PRESENT /LPF Urine Hyaline Casts 2-5 H /LPF Urine Mucus NEGATIVE /LPF Urine Culture Indicated YES Test 05/08/22 23:50 05/09/22 01:25 Range/Units Sodium Level 137 135-145 MMOL/L Potassium Level 3.2 L 3.6-5.0 MMOL/L Chloride Level 102 98-107 MMOL/L Carbon Dioxide Level 22 21-32 MMOL/L Anion Gap 13 5-14 MMOL/L Blood Urea Nitrogen 40 H 7-18 MG/DL Creatinine 1.49 H 0.60-1.30 MG/DL Estimat Glomerular Filtration Rate 47 BUN/Creatinine Ratio 27 Glucose Level 113 H 70-105 MG/DL Calcium Level 8.4 L 8.5-10.1 MG/DL Corrected Calcium 9.2 8.5-10.1 MG/DL Phosphorus Level 2.8 2.3-4.7 MG/DL Magnesium Level 2.1 1.6-2.4 MG/DL Total Bilirubin 2.7 #H 0.1-1.0 MG/DL Aspartate Amino Transf (AST/SGOT) 80 H 5-34 U/L Alanine Aminotransferase (ALT/SGPT) 111 H 0-55 U/L Alkaline Phosphatase 93 40-136 U/L Troponin I 1.185 *H <0.028 NG/ML C-Reactive Protein High Sensitivity 26.22 H 0.00-0.50 MG/DL Total Protein 5.5 L 6.4-8.2 GM/DL Albumin 3.0 L 3.2-4.5 GM/DL Procalcitonin 0.61 H <0.10 NG/ML White Blood Count 11.8 H 4.3-11.0 10^3/uL Red Blood Count 3.15 L 4.30-5.52 10^6/uL Hemoglobin 8.7 #L 13.3-17.7 g/dL Hematocrit 27 L 40-54 % Mean Corpuscular Volume 85 80-99 fL Mean Corpuscular Hemoglobin 28 25-34 pg Mean Corpuscular Hemoglobin Concent 33 32-36 g/dL Red Cell Distribution Width 17.1 H 10.0-14.5 % Platelet Count 487 H 130-400 10^3/uL Mean Platelet Volume 9.8 9.0-12.2 fL Immature Granulocyte % (Auto) 1 % Neutrophils (%) (Auto) 79 H 42-75 % Lymphocytes (%) (Auto) 4 L 12-44 % Monocytes (%) (Auto) 16 H 0-12 % Eosinophils (%) (Auto) 0 0-10 % Basophils (%) (Auto) 0 0-10 % Neutrophils # (Auto) 9.3 H 1.8-7.8 X 10^3 Lymphocytes # (Auto) 0.5 L 1.0-4.0 X 10^3 Monocytes # (Auto) 1.9 H 0.0-1.0 X 10^3 Eosinophils # (Auto) 0.0 0.0-0.3 10^3/uL Basophils # (Auto) 0.0 0.0-0.1 10^3/uL Immature Granulocyte # (Auto) 0.1 0.0-0.1 10^3/uL Triglycerides Level 68 <150 MG/DL Cholesterol Level 73 < 200 MG/DL LDL Cholesterol Direct 28 1-129 MG/DL VLDL Cholesterol 14 5-40 MG/DL HDL Cholesterol 28 L 40-60 MG/DL Physical Exam Physical Exam Vital Signs Vital Signs - First Documented 05/08/22 05/08/22 17:54 19:00 Temp 37.8 Pulse 93 Resp 16 B/P (MAP) 84/35 (51) Pulse Ox 93 O2 Delivery Room Air O2 Flow Rate 2.00 Capillary Refill : Less Than 3 Seconds Height, Weight, BMI Height: '" Weight: lbs. oz. kg; 26.64 BMI Method: General Appearance: No Apparent Distress, WD/WN Eyes: Bilateral Eye Normal Inspection, Bilateral Eye PERRL, Bilateral Eye EOMI HEENT: PERRL/EOMI, TMs Normal, Normal ENT Inspection, Pharynx Normal Neck: Full Range of Motion, Normal Inspection, Non Tender Respiratory: Crackles (Bibasilar), Decreased Breath Sounds Cardiovascular: Regular Rate, Rhythm, No Murmur Gastrointestinal: Normal Bowel Sounds, No Organomegaly, No Pulsatile Mass, Non Tender Rectal: Heme Positive Stool Back: Normal Inspection, No CVA Tenderness Extremity: Normal Capillary Refill, Normal Inspection, Normal Range of Motion, Non Tender Neurologic/Psychiatric: Alert, Oriented x3, No Motor/Sensory Deficits, Normal Mood/Affect, stump blower II-XII Norm as Tested Skin: Normal Color, Warm/Dry A/P-Cardiology Admission Diagnosis Pneumonia Non-ST elevation myocardial infarction Anemia Coronary artery disease Assessment/Plan Pneumonia, Cough, sputum, pulmonary infiltrate. Started on cefepime, managed by medical team Non-ST elevation myocardial infarction, elevation in troponin level. Probably secondary to underlying coronary artery disease and severe pneumonia, type II myocardial infarction. Conservative management is recommended at this time especially with his severe anemia Anemia, history of AVM, history of polyps and peptic ulcer disease. Received blood transfusion, H&H are better. Continue to monitor Probably will need to have upper and lower scope. Coronary artery disease status post cardiac catheterization stenting done by Dr. Hope on December 06, 2021 using Synergy XD 2.5 x 22 the circumflex artery, Synergy XT 4 x 12 to the LAD Synergy XD 2.75 x 24 to the circumflex artery. Maintained on aspirin and Plavix. We will hold at this point due to the GI bleed. Patient will need to be on aspirin 81 mg daily. We will discontinue Plavix for now and monitor closely. Paroxysmal atrial fibrillation, QTC stable. Patient is currently in sinus rhythm. Maintained on amiodarone. He has been unable to tolerate oral anticoagulation due to recurrent anemia and positive stool for occult blood. [id number] score 4, has been intolerance to oral anticoagulation due to recurrent GI bleed Congestive heart failure, chronic compensated left ventricular diastolic dysfunction, limited exercise activity. Unable to tolerate beta-blockers and/or PEYTON inhibitor due to hypotension. I will repeat 2D echocardiogram Peripheral arterial disease, extensive work-up for multiple surgeries in the past, had surgery with Dr. Coe, was seen by Dr. Hope in the past. Currently using a walker and wheelchair as needed COPD, using oxygen as needed at home. Borderline hypotension, unable to tolerate beta-blockers and/or PEYTON inhibitor and/or ARB. Hyperlipidemia, continue to monitor lipids. Taking Lipitor 40 mg Carotid stenosis, last ultrasound was done in January 2022 showing moderate disease 40 to 59% in the right internal carotid artery. Severe stenosis of the left carotid artery 60 to 79%. Near total occlusion of the external carotid arteries bilaterally. CT angiogram was done with bilateral carotid bifurcation disease 50 to 60% on the left and 50% at the origin of the right. Heavily calcified plaque in the carotid Siphone with no evidence of obstructive disease, chronically occluded right vertebral artery with reconstruction of the flow. LITA SEXTON MD May 09, 2022 08:46
[2022-05-09] MEDS ORDERED: FUROSEMIDE 40 MG/4 ML INJ (LASIX) IVP ONE (09:00)
[2022-05-09] MEDS: AMIODARONE 200 MG (CORDARONE) TAB PO SCH ×2 (09:46→20:15)
--- NOTE | 2022-05-09 14:01 | Consultation - Surgery ---
TALIA WALL 05/09/22 1401: History of Present Illness History of Present Illness Patient Consulted On(princess/time) 05/09/22 13:42 Date Seen by Provider: May 09, 2022 Time Seen by Provider: 13:43 Reason for Visit: Non-ST elevation myocardial infarction History of Present Illness Bharat Webber, 81 YO male with extensive history of two heart stents, CHF and reccurrent GI bleed presented to [facility] last night with severe anemia and received 2 units of blood. States during his transfer he was noted to have elevated troponins. Today, pt states he is feeling well. Reports he has had issues with anemia since September, noting most of his care has been through [facility]. States on December 30 he received an EGD and colonoscopy, at that time he had bleeding from his small bowel and several vessels were cauterized. On April 01 he had polyps removed with clip placement at rectal sigmoid colon. He currently denies chest pain,N/V, abdominal pain, blood in stool, and weakness. States he has a mild cough and shortness of breath, which is not uncommon for him. He currently takes baby aspirin and clopidigrel. He quit smoking 5 years ago. He denies any other complaints at this time. Allergies and Home Medications Allergies Coded Allergies: Penicillins (Unverified Allergy, Mild, RASH, 12/23/06) Patient Home Medication List Home Medication List Reviewed: Yes Albuterol Sulfate (Albuterol Sulfate) 2.5 Mg/0.5 Ml Vial.neb, 2.5 MG INH Q6H PRN for SHORTNESS OF BREATH, (Reported) Entered as Reported by: DIANE SUMMERS on 05/09/221509 Last Action: Reviewed Amiodarone HCl (Amiodarone HCl) 200 Mg Tablet, 200 MG PO BID, (Reported) Entered as Reported by: DIANE SUMMERS on 05/09/221509 Last Action: Reviewed Aspirin (Aspirin EC) 81 Mg Tablet.dr, 81 MG PO DAILY, (Reported) Entered as Reported by: DIANE SUMMERS on 05/09/221509 Last Action: Reviewed Atorvastatin Calcium (Atorvastatin Calcium) 40 Mg Tablet, 40 MG PO HS, (Reported) Entered as Reported by: DIANE SUMMERS on 05/09/221509 Last Action: Reviewed Bethanechol Chloride (Urecholine) 10 Mg Tablet, 10 MG PO QIDPCHS (2 HR AFTER MEALS), (Reported) Entered as Reported by: DIANE SUMMERS on 05/09/221509 Last Action: Reviewed Clopidogrel Bisulfate (Clopidogrel) 75 Mg Tablet, 75 MG PO DAILY, (Reported) Entered as Reported by: DIANE SUMMERS on 05/09/221509 Last Action: Reviewed Ferrous Sulfate (Iron) 325 Mg (65 Mg Iron) Tablet, 325 MG PO BID, (Reported) Entered as Reported by: DIANE SUMMERS on 05/09/221509 Last Action: Reviewed Fluticasone/Salmeterol (Advair Hfa 115-21 Mcg Inhaler) 115 Mcg-21 Mcg/Actuation Hfa.aer.ad, 2 PUFF IH BID PRN for SHORTNESS OF BREATH, (Reported) Entered as Reported by: DIANE SUMMERS on 05/09/221509 Last Action: Reviewed Furosemide (Furosemide) 40 Mg Tablet, 40 MG PO DAILY, (Reported) Entered as Reported by: DIANE SUMMERS on 05/09/221509 Last Action: Reviewed Lactobacillus Rhamnosus GG (Culturelle) 10 Billion Cell Capsule, 1 EACH PO DAILY, (Reported) Entered as Reported by: DIANE SUMMERS on 05/09/221509 Last Action: Reviewed Levothyroxine Sodium (Levothyroxine Sodium) 125 Mcg Tablet, 125 MCG PO DAILY, (Reported) Entered as Reported by: DIANE SUMMERS on 05/09/221509 Last Action: Reviewed Montelukast Sodium (Montelukast Sodium) 10 Mg Tablet, 10 MG PO HS, (Reported) Entered as Reported by: DIANE SUMMERS on 05/09/221509 Last Action: Reviewed Pantoprazole Sodium (Pantoprazole Sodium) 40 Mg Tablet.dr, 40 MG PO 0800,1600, (Reported) Entered as Reported by: DIANE SUMMERS on 05/09/221509 Last Action: Reviewed Sucralfate (Carafate) 1 Gram Tablet, 1 GM PO ACHS, (Reported) Entered as Reported by: DIANE SUMMERS on 05/09/221509 Last Action: Reviewed Tamsulosin HCl (Flomax) 0.4 Mg Cap, 0.4 MG PO Q12H, (Reported) Entered as Reported by: DIANE SUMMERS on 05/09/22 1510 Last Action: Reviewed Discontinued Medications Albuterol Sulfate (Albuterol Sulfate) 2.5 Mg/0.5 Ml Vial.neb, 2.5 MG INH Q6H PRN for SHORTNESS OF BREATH Discontinued Reason: No Longer Taking Prescribed by: KIEL ESCOBAR on 12/04/211011 Last Action: Discontinued Apixaban (Eliquis) 5 Mg Tablet, 5 MG PO BID Discontinued Reason: No Longer Taking Prescribed by: KIEL ESCOBAR on 12/04/211011 Last Action: Discontinued Atorvastatin Calcium (Atorvastatin Calcium) 40 Mg Tablet, 40 MG PO HS Discontinued Reason: No Longer Taking Prescribed by: KIEL ESCOBAR on 12/04/211011 Last Action: Discontinued Bumetanide (Bumetanide) 1 Mg Tablet, 1 MG PO DAILY Discontinued Reason: No Longer Taking Prescribed by: KIEL ESCOBAR on 12/04/211011 Last Action: Discontinued Cefdinir (Cefdinir) 300 Mg Capsule, 300 MG PO BID Discontinued Reason: No Longer Taking Prescribed by: KIEL ESCOBAR on 12/04/211011 Last Action: Discontinued Diltiazem HCl (Diltiazem 24Hr ER) 240 Mg Cap.er.24h, 240 MG PO DAILY Discontinued Reason: No Longer Taking Prescribed by: KIEL ESCOBAR on 12/04/211011 Last Action: Discontinued Fluticasone/Salmeterol (Advair Hfa 230-21 Mcg Inhaler) 12 Gm Hfa.aer.ad, 2 PUFF IH BID Discontinued Reason: No Longer Taking Prescribed by: KIEL ESCOBAR on 12/04/211011 Last Action: Discontinued Lactobacillus Rhamnosus GG (Culturelle) 1 Each Capsule, 1 EACH PO DAILY Discontinued Reason: No Longer Taking Prescribed by: KIEL ESCOBAR on 12/04/211011 Last Action: Discontinued Levothyroxine Sodium (Levothyroxine Sodium) 125 Mcg Tablet, 125 MCG PO 0600 Discontinued Reason: No Longer Taking Prescribed by: KIEL ESCOBAR on 12/04/211011 Last Action: Discontinued Montelukast Sodium (Montelukast Sodium) 10 Mg Tablet, 10 MG PO HS Discontinued Reason: No Longer Taking Prescribed by: KIEL ESCOBAR on 12/04/211011 Last Action: Discontinued Pantoprazole Sodium (Pantoprazole Sodium) 40 Mg Tablet.dr, 40 MG PO BID Discontinued Reason: No Longer Taking Prescribed by: KIEL ESCOBAR on 12/04/211011 Last Action: Discontinued Prednisone (Prednisone) 5 Mg Tablet, 5 MG PO DAILY Discontinued Reason: No Longer Taking Prescribed by: KIEL ESCOBAR on 12/04/211011 Last Action: Discontinued Prednisone (Prednisone) 10 Mg Tab.ds.pk, 10 MG PO DAILY Discontinued Reason: No Longer Taking Prescribed by: KIEL ESCOBAR on 12/04/211011 Last Action: Discontinued Sucralfate (Carafate) 1 Gm Tablet, 1 GM PO ACHS Discontinued Reason: No Longer Taking Prescribed by: KIEL ESCOBAR on 12/04/211011 Last Action: Discontinued Tamsulosin HCl (Flomax) 0.4 Mg Cap, 0.4 MG PO 0800,1400 Discontinued Reason: No Longer Taking Prescribed by: KIEL ESCOBAR on 12/04/211011 Last Action: Discontinued Past Kdybjjo-Htltmq-Sbbngc Hx Patient Social History Smoking Status: Former Smoker Recent Hopitalizations: Yes Alcohol Use?: No Have you traveled recently?: No Surgeries History of Surgeries: Yes Surgeries: Coronary Stent Respiratory History of Respiratory Disorde: Yes Respiratory Disorders: COPD Cardiovascular History of Cardiac Disorders: Yes Cardiac Disorders: Atrial Fibrillation, High Cholesterol, Hypertension Reproductive System Hx Reproductive Disorders: No Genitourinary Genitourinary Disorders: Renal Failure Gastrointestinal Gastrointestinal Disorders: Gastrointestinal Bleed (upper) Endocrine History of Endocrine Disorders: Yes Endocrine Disorders: Hypothyroidsim Family Medical History Significant Family History: No Pertinent Family Hx Review of Systems-General Constitutional: No chills, No fever, No weakness EENTM: No blurred vision, No double vision Respiratory: cough, short of breath (mild and chronic (COPD)) Cardiovascular: No chest pain, No palpitations, No syncope Gastrointestinal: No abdominal pain, No melena, No nausea, No vomiting Genitourinary: No decreased output, No dysuria Musculoskeletal: No back pain, No gout Skin: No pruritus, No rash Psychiatric/Neurological: Denies Headache, Denies Numbness Physical Exam-General Problems Physical Exam Vital Signs Vital Signs - First Documented 05/08/22 05/08/22 17:54 19:00 Temp 37.8 Pulse 93 Resp 16 B/P (MAP) 84/35 (51) Pulse Ox 93 O2 Delivery Room Air O2 Flow Rate 2.00 Capillary Refill : Less Than 3 Seconds General Appearance: WD/WN, no apparent distress Eyes: Bilateral Eye Normal Inspection, Bilateral Eye EOMI HEENT: PERRL/EOMI; No scleral icterus (R) Neck: non-tender, normal inspection Respiratory: chest non-tender, lungs clear, no respiratory distress, no accessory muscle use; No respiratory distress Cardiovascular: normal peripheral pulses, regular rate, rhythm, no gallop, no JVD Peripheral Pulses: 3+ Radial Pulses (R), 3+ Radial Pulses (L) Gastrointestinal: normal bowel sounds, non tender, soft, no pulsatile mass Rectal: deferred Back: normal inspection Extremities: normal range of motion, no pedal edema, no calf tenderness 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, no motor/sensory deficits, alert, normal mood/affect, oriented x 3 Skin: normal color, warm/dry Lymphatic: no adenopathy Data Review Labs Laboratory Tests 05/08/22 18:05: White Blood Count 13.5H, Red Blood Count 2.47L, Hemoglobin 6.4*L, Hematocrit 21L , Mean Corpuscular Volume 84, Mean Corpuscular Hemoglobin 26, Mean Corpuscular Hemoglobin Concent 31L, Red Cell Distribution Width 17.6H, Platelet Count 614H, Mean Platelet Volume 9.6, Immature Granulocyte % (Auto) 1, Neutrophils (%) (Auto) 83H, Lymphocytes (%) (Auto) 2L, Monocytes (%) (Auto) 14H, Eosinophils (%) (Auto) 0, Basophils (%) (Auto) 0, Neutrophils # (Auto) 11.2H, Lymphocytes # (Auto) 0.3L, Monocytes # (Auto) 1.9H, Eosinophils # (Auto) 0.0, Basophils # (Auto) 0.0, Immature Granulocyte # (Auto) 0.1, Neutrophils % (Manual) 73, Lymphocytes % (Manual) 1, Monocytes % (Manual) 14, Eosinophils % (Manual) 0, Basophils % (Manual) 0, Band Neutrophils 12, Nucleated Red Blood Cells 1, Polychromasia MODERATE, Hypochromasia MODERATE, Anisocytosis MODERATE, Target Cells SLIGHT, Prothrombin Time 18.1H, INR Comment 1.5H, Activated Partial Thromboplast Time 39H, Sodium Level 137, Potassium Level 3.1L, Chloride Level 99, Carbon Dioxide Level 27, Anion Gap 11, Blood Urea Nitrogen 38H, Creatinine 1.48H, Estimat Glomerular Filtration Rate 48, BUN/Creatinine Ratio 26, Glucose Level 123H, Calcium Level 8.6, Corrected Calcium 9.2, Magnesium Level 2.1, Total Bilirubin 0.6, Aspartate Amino Transf (AST/SGOT) 69H, Alanine Aminotransferase (ALT/SGPT) 112H, Alkaline Phosphatase 87, Myoglobin 217.0H, Troponin I 1.090*H, C-Reactive Protein High Sensitivity 27.39H, B-Type Natriuretic Peptide 1492.2H, Total Protein 6.2L, Albumin 3.3, Lipase 13, Procalcitonin 0.58H 05/08/22 19:37: Influenza Type A (RT-PCR) Not Detected, Influenza Type B (RT-PCR) Not Detected, SARS-CoV-2 RNA (RT-PCR) Not Detected 05/08/22 20:11: Lactic Acid Level 1.66 05/08/22 20:50: Urine Color YELLOW, Urine Clarity CLEAR, Urine pH 6.0, Urine Specific [place] 1.015L, Urine Protein NEGATIVE, Urine Glucose (UA) NEGATIVE, Urine Ketones NEGATIVE, Urine Nitrite POSITIVEH, Urine Bilirubin NEGATIVE, Urine Urobilinogen 0.2, Urine Leukocyte Esterase NEGATIVE, Urine RBC (Auto) NEGATIVE, Urine RBC 0- 2, Urine WBC 0-2, Urine Squamous Epithelial Cells NONE, Urine Renal Epithelial Cells NONE, Urine Crystals NONE, Urine Bacteria TRACE, Urine Casts PRESENT, Urine Hyaline Casts 2-5H, Urine Mucus NEGATIVE, Urine Culture Indicated YES 05/08/22 23:50: Sodium Level 137, Potassium Level 3.2L, Chloride Level 102, Carbon Dioxide Level 22, Anion Gap 13, Blood Urea Nitrogen 40H, Creatinine 1.49H, Estimat Glomerular Filtration Rate 47, BUN/Creatinine Ratio 27, Glucose Level 113H, Calcium Level 8.4L, Corrected Calcium 9.2, Phosphorus Level 2.8, Magnesium Level 2.1, Total Bilirubin 2.7#H, Aspartate Amino Transf (AST/SGOT) 80H, Alanine Aminotransferase (ALT/SGPT) 111H, Alkaline Phosphatase 93, Troponin I 1.185*H, C-Reactive Protein High Sensitivity 26.22H, Total Protein 5.5L, Albumin 3.0L, Procalcitonin 0.61H 05/09/22 01:25: White Blood Count 11.8H, Red Blood Count 3.15L, Hemoglobin 8.7#L, Hematocrit 27L , Mean Corpuscular Volume 85, Mean Corpuscular Hemoglobin 28, Mean Corpuscular Hemoglobin Concent 33, Red Cell Distribution Width 17.1H, Platelet Count 487H, Mean Platelet Volume 9.8, Immature Granulocyte % (Auto) 1, Neutrophils (%) (Auto) 79H, Lymphocytes (%) (Auto) 4L, Monocytes (%) (Auto) 16H, Eosinophils (%) (Auto) 0, Basophils (%) (Auto) 0, Neutrophils # (Auto) 9.3H, Lymphocytes # (Auto) 0.5L, Monocytes # (Auto) 1.9H, Eosinophils # (Auto) 0.0, Basophils # (Auto) 0.0, Immature Granulocyte # (Auto) 0.1, Triglycerides Level 68, Cholesterol Level 73, LDL Cholesterol Direct 28, VLDL Cholesterol 14, HDL Cholesterol 28L Assessment/Plan Assessment/Plan Admission Diagonsis Anemia Assessment/Plan Anemia - improved Hb of 8.7 (6.8 yesterday) 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 Transfuse if Hb < 7.0. Stay on clear diet. ROSALIND FRANKLIN DO 05/09/22 1645: History of Present Illness History of Present Illness History of Present Illness Consult requested by Dr. Chase. Patient is a 81-year-old male who was admitted for anemia. He is occult positive stool. Patient states been having issues with anemia since September. He has had EGD and colonoscopy in December which he states was normal then he had a capsule endoscopy performed which demonstrated 5 vessels that needed to be taken care of. Dr. Muñoz did go and bring these areas patient family states. Sounds like he had a push enteroscopy. He states these were in the small bowel area. He also has had polypectomies performed which also had resolution clip placement. Patient is not having any abdominal pain. He has not noticed any darker than normal stools but he is on iron he states. Patient's not having any nausea or vomiting. He recently had 2 cardiac stents. He has no other complaints at this time. Denies any fever sweats chills or chest pain at this time.. Allergies and Home Medications Allergies Coded Allergies: Penicillins (Unverified Allergy, Mild, RASH, 12/23/06) Patient Home Medication List Home Medication List Reviewed: Yes Albuterol Sulfate (Albuterol Sulfate) 2.5 Mg/0.5 Ml Vial.neb, 2.5 MG INH Q6H PRN for SHORTNESS OF BREATH, (Reported) Entered as Reported by: DIANE SUMMERS on 05/09/221509 Last Action: Reviewed Amiodarone HCl (Amiodarone HCl) 200 Mg Tablet, 200 MG PO BID, (Reported) Entered as Reported by: DIANE SUMMERS on 05/09/221509 Last Action: Reviewed Aspirin (Aspirin EC) 81 Mg Tablet.dr, 81 MG PO DAILY, (Reported) Entered as Reported by: DIANE SUMMERS on 05/09/221509 Last Action: Reviewed Atorvastatin Calcium (Atorvastatin Calcium) 40 Mg Tablet, 40 MG PO HS, (Reported) Entered as Reported by: DIANE SUMMERS on 05/09/221509 Last Action: Reviewed Bethanechol Chloride (Urecholine) 10 Mg Tablet, 10 MG PO QIDPCHS (2 HR AFTER MEALS), (Reported) Entered as Reported by: DIANE SUMMERS on 05/09/221509 Last Action: Reviewed Clopidogrel Bisulfate (Clopidogrel) 75 Mg Tablet, 75 MG PO DAILY, (Reported) Entered as Reported by: DIANE SUMMERS on 05/09/221509 Last Action: Reviewed Ferrous Sulfate (Iron) 325 Mg (65 Mg Iron) Tablet, 325 MG PO BID, (Reported) Entered as Reported by: DIANE SUMMERS on 05/09/221509 Last Action: Reviewed Fluticasone/Salmeterol (Advair Hfa 115-21 Mcg Inhaler) 115 Mcg-21 Mcg/Actuation Hfa.aer.ad, 2 PUFF IH BID PRN for SHORTNESS OF BREATH, (Reported) Entered as Reported by: DIANE SUMMERS on 05/09/221509 Last Action: Reviewed Furosemide (Furosemide) 40 Mg Tablet, 40 MG PO DAILY, (Reported) Entered as Reported by: DIANE SUMMERS on 05/09/221509 Last Action: Reviewed Lactobacillus Rhamnosus GG (Culturelle) 10 Billion Cell Capsule, 1 EACH PO DAILY, (Reported) Entered as Reported by: DIANE SUMMERS on 05/09/221509 Last Action: Reviewed Levothyroxine Sodium (Levothyroxine Sodium) 125 Mcg Tablet, 125 MCG PO DAILY, (Reported) Entered as Reported by: DIANE SUMMERS on 05/09/221509 Last Action: Reviewed Montelukast Sodium (Montelukast Sodium) 10 Mg Tablet, 10 MG PO HS, (Reported) Entered as Reported by: DIANE SUMMERS on 05/09/221509 Last Action: Reviewed Pantoprazole Sodium (Pantoprazole Sodium) 40 Mg Tablet.dr, 40 MG PO 0800,1600, (Reported) Entered as Reported by: DIANE SUMMERS on 05/09/221509 Last Action: Reviewed Sucralfate (Carafate) 1 Gram Tablet, 1 GM PO ACHS, (Reported) Entered as Reported by: DIANE SUMMERS on 05/09/221509 Last Action: Reviewed Tamsulosin HCl (Flomax) 0.4 Mg Cap, 0.4 MG PO Q12H, (Reported) Entered as Reported by: DIANE SUMMERS on 05/09/221509 Last Action: Reviewed Discontinued Medications Albuterol Sulfate (Albuterol Sulfate) 2.5 Mg/0.5 Ml Vial.neb, 2.5 MG INH Q6H PRN for SHORTNESS OF BREATH Discontinued Reason: No Longer Taking Prescribed by: KIEL ESCOBAR on 12/04/211011 Last Action: Discontinued Apixaban (Eliquis) 5 Mg Tablet, 5 MG PO BID Discontinued Reason: No Longer Taking Prescribed by: KIEL ESCOBAR on 12/04/211011 Last Action: Discontinued Atorvastatin Calcium (Atorvastatin Calcium) 40 Mg Tablet, 40 MG PO HS Discontinued Reason: No Longer Taking Prescribed by: KIEL ESCOBAR on 12/04/211011 Last Action: Discontinued Bumetanide (Bumetanide) 1 Mg Tablet, 1 MG PO DAILY Discontinued Reason: No Longer Taking Prescribed by: KIEL ESCOBAR on 12/04/211011 Last Action: Discontinued Cefdinir (Cefdinir) 300 Mg Capsule, 300 MG PO BID Discontinued Reason: No Longer Taking Prescribed by: KIEL ESCOBAR on 12/04/211011 Last Action: Discontinued Diltiazem HCl (Diltiazem 24Hr ER) 240 Mg Cap.er.24h, 240 MG PO DAILY Discontinued Reason: No Longer Taking Prescribed by: KIEL ESCOBAR on 12/04/211011 Last Action: Discontinued Fluticasone/Salmeterol (Advair Hfa 230-21 Mcg Inhaler) 12 Gm Hfa.aer.ad, 2 PUFF IH BID Discontinued Reason: No Longer Taking Prescribed by: KIEL ESCOBAR on 12/04/211011 Last Action: Discontinued Lactobacillus Rhamnosus GG (Culturelle) 1 Each Capsule, 1 EACH PO DAILY Discontinued Reason: No Longer Taking Prescribed by: KIEL ESCOBAR on 12/04/211011 Last Action: Discontinued Levothyroxine Sodium (Levothyroxine Sodium) 125 Mcg Tablet, 125 MCG PO 0600 Discontinued Reason: No Longer Taking Prescribed by: KIEL ESCOBAR on 12/04/211011 Last Action: Discontinued Montelukast Sodium (Montelukast Sodium) 10 Mg Tablet, 10 MG PO HS Discontinued Reason: No Longer Taking Prescribed by: KIEL ESCOBAR on 12/04/211011 Last Action: Discontinued Pantoprazole Sodium (Pantoprazole Sodium) 40 Mg Tablet.dr, 40 MG PO BID Discontinued Reason: No Longer Taking Prescribed by: KIEL ESCOBAR on 12/04/211011 Last Action: Discontinued Prednisone (Prednisone) 5 Mg Tablet, 5 MG PO DAILY Discontinued Reason: No Longer Taking Prescribed by: KIEL ESCOBAR on 12/04/211011 Last Action: Discontinued Prednisone (Prednisone) 10 Mg Tab.ds.pk, 10 MG PO DAILY Discontinued Reason: No Longer Taking Prescribed by: KIEL ESCOBAR on 12/04/211011 Last Action: Discontinued Sucralfate (Carafate) 1 Gm Tablet, 1 GM PO ACHS Discontinued Reason: No Longer Taking Prescribed by: KIEL ESCOBAR on 12/04/211011 Last Action: Discontinued Tamsulosin HCl (Flomax) 0.4 Mg Cap, 0.4 MG PO 0800,1400 Discontinued Reason: No Longer Taking Prescribed by: KIEL ESCOBAR on 12/04/211011 Last Action: Discontinued Past Ustikvg-Vyepkc-Mkmopi Hx Reviewed Nursing Assessment Reviewed/Agree w Nursing PMH: Yes Family Medical History Significant Family History: No Pertinent Family Hx Review of Systems-General Constitutional: No chills, No fever, No weakness EENTM: No blurred vision, No double vision Respiratory: cough, short of breath (mild and chronic (COPD)) Cardiovascular: No chest pain, No palpitations, No syncope Gastrointestinal: No abdominal pain, No melena, No nausea, No vomiting Genitourinary: No decreased output, No dysuria Musculoskeletal: No back pain, No gout Skin: No pruritus, No rash Psychiatric/Neurological: Denies Headache, Denies Numbness All Other Systems Reviewed Negative Unless Noted: Yes (Negative excepted noted.) Physical Exam-General Problems Physical Exam General Appearance: WD/WN, no apparent distress HEENT: PERRL/EOMI, normal ENT inspection Neck: non-tender, supple Respiratory: chest non-tender, no respiratory distress, no accessory muscle use Cardiovascular: regular rate, rhythm, no JVD Gastrointestinal: non tender, soft Rectal: deferred Back: normal inspection Extremities: normal range of motion, no pedal edema Neurologic/Psychiatric: alert, normal mood/affect, oriented x 3 Skin: normal color, warm/dry Lymphatic: no adenopathy Assessment/Plan Assessment/Plan Assessment/Plan Anemia Long-term anticoagulation Upper GI bleed Patient transfused and responded appropriately by lab work. Patient has had r ecent endoscopies performed at [facility] which she had to undergo cauterization of vessels by Dr. Muñoz in the small bowel. Patient to continue conservative measures at this time. If he continues to bleed where he would need endoscopy with transfer back over because we do not have a capability of push enteroscopy. Follow hemoglobin transfuse PRBC as needed. If can would consider holding anticoagulation/antiplatelets. Supervisory-Addendum Brief Verification & Attestation Participated in pt care: history, MDM, physical Personally performed: exam, history, MDM, supervision of care Care discussed with: Medical Student Procedures: n/a Results interpretation: Verified all documentation Verification and Attestation of Medical Student E/M Service A medical student performed and documented this service in my presence. I reviewed and verified all information documented by the medical student and made modifications to such information, when appropriate. I personally performed the physical exam and medical decision making. Rosalind Franklin, May 09, 2022,16:46 TALIA WALL May 09, 2022 14:01 ROSALIND FRANKLIN DO May 09, 2022 16:45
[2022-05-09] MEDS ORDERED: FURO40TA4 PO (15:10)
[2022-05-09] MEDS ORDERED: LEVO125T6 PO (15:10)
[2022-05-09] MEDS ORDERED: ALB0.5V INH (15:10)
[2022-05-09] MEDS ORDERED: FERR-84 PO (15:10)
[2022-05-09] MEDS ORDERED: ATOR40TA70 PO (15:10)
[2022-05-09] MEDS ORDERED: LACT1CAP39 PO (15:10)
[2022-05-09] MEDS ORDERED: MONT-40 PO (15:10)
[2022-05-09] MEDS ORDERED: PANT40TA52 PO (15:10)
[2022-05-09] MEDS ORDERED: TMSL.4C PO (15:10)
[2022-05-09] MEDS ORDERED: CLOP75TA28 PO (15:10)
[2022-05-09] MEDS ORDERED: BTH10T PO (15:10)
[2022-05-09] MEDS ORDERED: FLUT12AE4 IH (15:10)
[2022-05-09] MEDS ORDERED: AMIO200T65 PO (15:10)
[2022-05-09] MEDS ORDERED: SUCR1TAB36 PO (15:10)
[2022-05-09] MEDS ORDERED: ASPI-1238 PO (15:10)
--- NOTE | 2022-05-09 19:33 | History & Physical-Hospitalist ---
History of Present Illness HPI/Chief Complaint Bharat Webber is an 81 year old male with PMH HTN, HLD, AFib, HFpEF, COPD on home oxygen 2 L with activity, BPH with chronic indwelling corbett, iron defieicency anemia, recurrent GI bleeds due to gastric ulcer and AVMs, who presented with anemia. His PCP recommended he go to the ER. They were headed to [place] when they were notified he also had a significantly elevated troponin and they were told to go to the closest ER which was here. He reports feeling weak. He has not noticed any blood in his stools. He has had a cough which is chronic. His sputum is yellow and unchanged. He is chronically short of breath. He denies fevers and chills. He denies chest pain. Source: patient, family Exam Limitations: no limitations Date Seen 05/09/22 Time Seen by a Provider: 10:35 Attending Physician Molly Flores MD PCP Admitting Physician: Jody Chase DO Attending Physician: Jody Chase DO Referring Physician Date of Admission May 08, 2022 at 21:48 Home Medications & Allergies Home Medications Reviewed patient Home Medication Reconciliation performed by pharmacy medication reconciliations lighting technician and/or nursing. Patients Allergies have been reviewed. Allergies Allergies Coded Allergies Penicillins (Unverified Allergy, Mild, RASH, 12/23/06) Past Tzhcvup-Qdhbyy-Owdbfn Hx Patient Social History Marrital Status: Employed/Student: retired Tobacco Use?: No Smoking Status: Former Smoker Use of E-Cig and/or Vaping dev: No Substance use?: No Alcohol Use?: No Pt feels they are or have been: No Immunizations Up To Date Tetanus Booster (TDap): Unknown Hepatitis A: No Hepatitis B: No Current Status Advance Directives: No Advance Directive Location: Scanned into EMR Communicates: Verbally Primary Language: Sammarinese Preferred Spoken Language: Sammarinese Is interpretation needed?: No Sensory deficits: Hearing impairment Implanted or Applied Medical D: None Past Medical History Surgeries: Coronary Stent COPD Atrial Fibrillation, High Cholesterol, Hypertension Renal Failure Gastrointestinal Bleed (upper) Hypothyroidsim Family Medical History No Pertinent Family Hx Review of Systems Constitutional: weakness EENTM: no symptoms reported Respiratory: cough, phlegm, short of breath Cardiovascular: no symptoms reported Gastrointestinal: no symptoms reported Genitourinary: no symptoms reported Physical Exam Physical Exam Vital Signs Vital Signs - First Documented 05/08/22 05/08/22 17:54 19:00 Temp 37.8 Pulse 93 Resp 16 B/P (MAP) 84/35 (51) Pulse Ox 93 O2 Delivery Room Air O2 Flow Rate 2.00 Capillary Refill : Less Than 3 Seconds Height, Weight, BMI Height: '" Weight: lbs. oz. kg; 26.64 BMI Method: General Appearance: No Apparent Distress, Chronically ill HEENT: PERRL/EOMI, Pharynx Normal Neck: Normal Inspection, Supple Respiratory: No Respiratory Distress, Wheezing Cardiovascular: Regular Rate, Rhythm, No Murmur Gastrointestinal: Normal Bowel Sounds, Non Tender, Soft Extremity: Normal Inspection, No Pedal Edema Neurologic/Psychiatric: Alert, Normal Mood/Affect, Motor Weakness Skin: Warm/Dry, Pallor Results Results/Procedures Labs Laboratory Tests 05/08/22 18:05 05/08/22 23:50 05/09/22 01:25 Patient resulted labs reviewed. Imaging: Reviewed Imaging Report Assessment/Plan Admission Diagnosis Severe anemia Admission Status: Inpatient Order (span 2 midnights) Reason for Inpatient Admission: Transfusions Assessment and Plan Severe anemia Chronic GI bleeding Small bowel AVMs Hgb 6 on arrival History of chronic GI bleeds Recently treated small bowel AVMs at [place] s/p 2 units PRBC Hgb increased to 8 Surgery consulted Hold anticoagulation Planning for conservative management Pneumonia Chest xray with infiltrate Procal elevated Not septic IV antibiotics NSTEMI CAD Holding aspirin and plavix due to GI bleed Cardiology following Likely type II No chest pain Planning for conservative management CHAZ on CKD Transfusion IV fluids Elevated LFTs T bili 2.7 Monitor HTN HLD AFib COPD HFpEF GENIA Hypothyroidism BPH Diagnosis/Problems Diagnosis/Problems (1) Severe anemia Status: Acute (2) Chronic GI bleeding Status: Chronic (3) Pneumonia Status: Acute Qualifiers: Pneumonia type: due to unspecified organism Laterality: bilateral Lung location: lower lobe of lung Qualified Codes: J18.9 - Pneumonia, unspecified organism (4) CAD (coronary artery disease) Status: Chronic (5) NSTEMI (non-ST elevation myocardial infarction) Status: Acute (6) Acute kidney injury Status: Acute (7) Paroxysmal atrial fibrillation Status: Chronic (8) Chronic heart failure with preserved ejection fraction (HFpEF) Status: Chronic (9) COPD (chronic obstructive pulmonary disease) Status: Chronic KIEL ESCOBAR MD May 09, 2022 19:33
[2022-05-09] MEDS ORDERED: MONTELUKAST 10 MG (SINGULAIR) TAB PO SCH (21:00)
[2022-05-09] MEDS: BETHANECHOL 10 MG (URECHOLINE) TAB PO SCH (22:11)
[2022-05-09] MEDS: TAMSULOSIN 0.4 MG (FLOMAX) CAP PO SCH (22:11)
[2022-05-09] MEDS: SUCRALFATE 1 GM (CARAFATE) TAB PO SCH (22:12)
[2022-05-10] MEDS: RT-ALBUTEROL/IPRATROPIUM 3 ML (DUONEB) VIAL INH SCH ×4 (02:09→15:02)
[2022-05-10] MEDS: VASOPRESSIN INJECTION 20 UNIT in NS (IVPB) 100 ML IV SCH ×2 (02:12→11:30)
[2022-05-10] MEDS: LACTATED RINGERS 1,000 ML IV SCH (02:18)
[2022-05-10 05:35] LABS: BASOPHILS % (AUTO) 0 % (0-10); EOSINOPHILS # (AUTO) 0.1 10^3/uL (0.0-0.3); EOSINOPHILS % (AUTO) 1 % (0-10); HEMATOCRIT 26 % (40-54); LYMPHOCYTES # (AUTO) 0.4 10^3/uL (1.0-4.0); LYMPHOCYTES % (AUTO) 3 % (12-44); MEAN CORPUSCULAR HEMOGLOBIN 27 pg (25-34); MEAN CORPUSCULAR HGB CONC 31 g/dL (32-36); MEAN CORPUSCULAR VOLUME 86 fL (80-99); MEAN PLATELET VOLUME 9.6 fL (9.0-12.2); MONOCYTES # (AUTO) 1.5 10^3/uL (0.0-1.0); MONOCYTES % (AUTO) 13 % (0-12); NEUTROPHILS # (AUTO) 10.2 10^3/uL (1.8-7.8); NEUTROPHILS % (AUTO) 83 % (42-75); PLATELET COUNT 465 10^3/uL (130-400); WHITE BLOOD COUNT 12.3 10^3/uL (4.3-11.0)
[2022-05-10 05:43] LABS: ALBUMIN 2.6 GM/DL (3.2-4.5); POTASSIUM 3.5 MMOL/L (3.6-5.0)
[2022-05-10 05:44] LABS: CALCIUM 7.9 MG/DL (8.5-10.1)
[2022-05-10 05:46] LABS: TOTAL PROTEIN 5.1 GM/DL (6.4-8.2)
[2022-05-10 05:47] LABS: BILIRUBIN,TOTAL 0.8 MG/DL (0.1-1.0)
[2022-05-10 05:49] LABS: CREATININE SERUM 1.12 MG/DL (0.60-1.30); PHOSPHORUS 2.1 MG/DL (2.3-4.7)
[2022-05-10] MEDS: CEFEPIME INJECTION 1,000 MG in NS (IVPB) 50 ML IV SCH (06:42)
[2022-05-10] MEDS ORDERED: LEVOTHYROXINE 125 MCG (LEVOTHROID) TABLET PO SCH (07:00)
[2022-05-10] MEDS: MAGNESIUM 1 GM/100 ML IVPB 100 ML IV SCH (07:02)
[2022-05-10] MEDS: KCL 20 MEQ TAB (K-DUR) PO SCH (07:03)
[2022-05-10] MEDS ORDERED: PANTOPRAZOLE 40 MG (PROTONIX) TAB PO SCH (08:00)
--- NOTE | 2022-05-10 08:17 | Tele-ICU Progress Note ---
Subjective Date Seen by a Provider: May 10, 2022 Time Seen by a Provider: 08:16 Subjective/Events-last exam Here for: COPD, on albuterol GIB in past has had small bowel polyps, on sucrafate and IV PPI, Had some bloody bowel movement this am, Hb was 6.4, now 8.0, got 2 units PRBC 05/08 IV levo, epi and vaso ordered but not needed. Hx of CAD with stent LAD, has been on DPT, on hold due to GIB Pt is awake and alert Sepsis Event Evaluation Height, Weight, BMI Height: '" Weight: lbs. oz. kg; 26.64 BMI Method: Focused Exam Lactate Level 05/08/22 20:11: Lactic Acid Level 1.66 Time of Focused Exam: 21:05 Exam Exam Patient acknowledged, consented, and participated in this virtual visit which was conducted using real time audio/video Vital Signs Date Time Temp Pulse Resp B/P (MAP) Pulse Ox O2 Delivery O2 Flow Rate FiO2 05/10/22 07:15 99 Nasal Cannula 2.00 05/10/22 07:00 83 05/10/22 06:00 81 26 92/48 98 Nasal Cannula 2.00 05/10/22 05:00 86 17 92/46 97 Nasal Cannula 2.00 05/10/22 04:00 81 23 86/31 99 Nasal Cannula 2.00 05/10/22 03:09 Nasal Cannula 05/10/22 03:00 84 24 96/44 95 Nasal Cannula 2.00 05/10/22 02:09 99 Nasal Cannula 2.00 05/10/22 02:00 84 23 91/48 98 Nasal Cannula 2.00 05/10/22 01:00 89 05/10/22 01:00 89 23 112/51 99 Nasal Cannula 2.00 05/10/22 00:00 87 26 104/53 98 Nasal Cannula 2.00 05/10/22 00:00 Nasal Cannula 05/09/22 23:00 89 26 104/55 97 Nasal Cannula 2.00 05/09/22 22:07 99 Nasal Cannula 2.00 05/09/22 22:00 89 22 101/58 99 Nasal Cannula 2.00 05/09/22 21:00 86 25 104/50 100 Nasal Cannula 2.00 05/09/22 20:48 Nasal Cannula 05/09/22 20:00 88 24 102/50 98 Nasal Cannula 2.00 05/09/22 19:49 36.7 05/09/22 19:00 89 17 104/59 99 Nasal Cannula 2.00 05/09/22 19:00 89 05/09/22 18:07 99 Nasal Cannula 2.00 05/09/22 18:00 84 27 105/50 98 Nasal Cannula 2.00 05/09/22 17:00 84 21 97/54 98 Nasal Cannula 2.00 05/09/22 16:00 36.8 Nasal Cannula 2.00 05/09/22 16:00 95 Nasal Cannula 2.00 05/09/22 16:00 89 19 111/59 97 Nasal Cannula 2.00 05/09/22 15:18 97 Nasal Cannula 2.00 05/09/22 15:00 83 27 100/55 97 Nasal Cannula 2.00 05/09/22 14:00 84 23 100/55 97 Nasal Cannula 2.00 05/09/22 13:00 82 05/09/22 13:00 79 22 105/52 97 Nasal Cannula 2.00 05/09/22 12:00 85 28 107/54 96 Nasal Cannula 2.00 05/09/22 12:00 96 Nasal Cannula 2.00 05/09/22 11:57 36.6 05/09/22 11:00 86 21 111/52 96 Nasal Cannula 2.00 05/09/22 10:29 100 Nasal Cannula 2.00 05/09/22 10:00 82 25 101/76 98 Nasal Cannula 2.00 05/09/22 09:00 82 17 97/44 96 Nasal Cannula 2.00 I & O 05/10/22 07:00 Intake Total 3020 ml Output Total 1700 ml Balance 1320 ml Height & Weight Height: '" Weight: lbs. oz. kg; 26.64 BMI Method: General Appearance: No Apparent Distress, Chronically ill HEENT: PERRL/EOMI, Pharynx Normal Neck: Normal Inspection, Supple Respiratory: Lungs Clear, No Respiratory Distress, Wheezing Cardiovascular: Regular Rate, Rhythm, No Murmur Capillary Refill: Less Than 3 Seconds Peripheral Pulses: 3+ Radial Pulses (R), 3+ Radial Pulses (L) Gastrointestinal: normal bowel sounds, non tender, soft Extremity: Normal Inspection, No Pedal Edema Neurologic/Psychiatric: Alert, Normal Mood/Affect, Motor Weakness Skin: Warm/Dry, Pallor Results Lab Laboratory Tests 05/08/22 18:05 05/08/22 23:50 05/09/22 01:25 05/10/22 04:59 Assessment/Plan Assessment/Plan COPD-continue present meds CAD, DPT On hold GIB, monitor Hb No plan for scope right now Critical Care: Critically Ill Patient Time spent with patient (mins): 30 OUMAR ACUNA MD May 10, 2022 08:17
[2022-05-10] MEDS ORDERED: KCL 20 MEQ TAB (K-DUR) PO ONE (09:00)
[2022-05-10] MEDS ORDERED: FUROSEMIDE 40 MG (LASIX) TAB PO SCH (09:00)
[2022-05-10 09:24] LABS: ABSOLUTE RETIC # 30 10e9/uL (24-90); RETICULOCYTE % 1.02 % (0.50-2.40)
[2022-05-10] MEDS: BETHANECHOL 10 MG (URECHOLINE) TAB PO SCH ×2 (09:27→12:17)
[2022-05-10] MEDS: TAMSULOSIN 0.4 MG (FLOMAX) CAP PO SCH (09:28)
[2022-05-10] MEDS: SUCRALFATE 1 GM (CARAFATE) TAB PO SCH ×2 (09:28→12:17)
[2022-05-10] MEDS: AMIODARONE 200 MG (CORDARONE) TAB PO SCH (09:28)
--- NOTE | 2022-05-10 09:55 | Cardiology Progress Note ---
Subjective Date Seen by Provider: May 10, 2022 Time Seen by Provider: 09:53 Subjective/Events-last exam Patient was seen at bedside, laying down comfortably. No new complaint. Review of Systems General: No Chills, No Night Sweats, No Fatigue, No Malaise, No Appetite, No Other HEENT: No Head Aches, No Visual Changes, No Eye Pain, No Ear Pain, No Dysphasia, No Sinus Congestion, No Post Nasal Drip, No Sore Throat, No Other Pulmonary: No Dyspnea; Cough; No Pleuritic Chest Pain, No Other Cardiovascular: No: Chest Pain, Palpitations, Orthopnea, Paroxysmal Noc. Dyspnea, Edema, Lt Headedness, Other Focused Exam Lactate Level 05/08/22 20:11: Lactic Acid Level 1.66 Time of Focused Exam: 21:05 Objective-Cardiology Exam Last Set of Vital Signs Vital Signs 05/10/22 05/10/22 08:00 09:00 Temp 37.2 Pulse 82 Resp 23 B/P (MAP) 102/56 Pulse Ox 98 O2 Delivery Nasal Cannula O2 Flow Rate 2.00 I&O Intake and Output 05/10/22 00:00 Intake Total 2820 ml Output Total 1925 ml Balance 895 ml Intake Oral 1720 ml IV Total 1100 ml Output Urine Total 1925 ml General: Alert, Oriented X3, Cooperative HEENT: Atraumatic, PERRLA Neck: Supple, No JVD, No Thyromegaly Lungs: Normal Air Movement, Other (Bilateral wheezing) Heart: Regular Rate, Normal S1, Normal S2, No Murmurs Abdomen: Normal Bowel Sounds, Soft, No Tenderness, No Hepatosplenomegaly, No Masses Extremities: No Clubbing, No Cyanosis, No Edema, Normal Pulses, No Tenderness/Swelling Skin: No Rashes, No Breakdown, No Significant Lesion Neuro: Normal Gait, Normal Speech, Strength at 5/5 X4 Ext, Normal Tone, Sensation Intact Psych/Mental Status: Mental Status NL, Mood NL Results Lab Laboratory Tests 05/10/22 04:59 A/P-Cardiology Admission Diagnosis Pneumonia Non-ST elevation myocardial infarction Anemia Coronary artery disease Assessment/Plan Pneumonia, Cough, sputum, pulmonary infiltrate. Started on cefepime, managed by medical team Non-ST elevation myocardial infarction, elevation in troponin level. Probably secondary to underlying coronary artery disease and severe pneumonia, type II myocardial infarction. Conservative management is recommended at this time especially with his severe anemia Anemia, history of AVM, history of polyps and peptic ulcer disease. Received blood transfusion, H&H are better. Continue to monitor Probably will need to have upper and lower scope. Coronary artery disease status post cardiac catheterization stenting done by Dr. Hope on December 06, 2021 using Synergy XD 2.5 x 22 the circumflex artery, Synergy XT 4 x 12 to the LAD Synergy XD 2.75 x 24 to the circumflex artery. Maintained on aspirin and Plavix. We will hold at this point due to the GI bleed. Patient will need to be on aspirin 81 mg daily if okay with medical team. Plavix was discontinued on 01/11/2022. Paroxysmal atrial fibrillation, QTC stable. Patient is currently in sinus rhythm. Maintained on amiodarone. He has been unable to tolerate oral anticoagulation due to recurrent anemia and positive stool for occult blood. [id number] score 4, has been intolerance to oral anticoagulation due to recurrent GI bleed Congestive heart failure, acute on chronic left ventricular systolic dysfunction, ejection fraction 40 to 45%. Continue to monitor closely Peripheral arterial disease, extensive work-up for multiple surgeries in the [facility], [facility] surgery with Dr. Coe, was seen by Dr. Hope in the past. Currently using a walker and wheelchair as needed COPD, using oxygen as needed at home. Borderline hypotension, unable to tolerate beta-blockers and/or PEYTON inhibitor and/or ARB. Hyperlipidemia, continue to monitor lipids. Taking Lipitor 40 mg Carotid stenosis, last ultrasound was done in January 2022 showing moderate disease 40 to 59% in the right internal carotid artery. Severe stenosis of the left carotid artery 60 to 79%. Near total occlusion of the external carotid arteries bilaterally. CT angiogram was done with bilateral carotid bifurcation disease 50 to 60% on the left and 50% at the origin of the right. Heavily calcified plaque in the carotid Siphone with no evidence of obstructive disease, chronically occluded right vertebral artery with reconstruction of the flow. LITA SEXTON MD May 10, 2022 09:55
--- NOTE | 2022-05-10 10:40 | Progress Note - Surgery ---
TALIA WALL 05/10/22 1040: Subjective Date Seen by a Provider: May 10, 2022 Time Seen by a Provider: 10:35 Subjective/Events-last exam Patient rests comfortably in bed. States he is feeling better than yesterday. Patient had diarrhea that nurse reported as foul smelling with possible blood, however he is currently talking iron supplements and tested as hemoccult negative this morning. He denies fever, chills, N/V, abdominal pain, chest pain, or shortness of breath. Focused Exam Lactate Level 05/08/22 20:11: Lactic Acid Level 1.66 Time of Focused Exam: 21:05 Objective Exam Vital Signs Date Time Temp Pulse Resp B/P (MAP) Pulse Ox O2 Delivery O2 Flow Rate FiO2 05/10/22 10:00 81 18 103/61 91 Nasal Cannula 2.00 05/10/22 09:00 82 23 102/56 98 Nasal Cannula 2.00 05/10/22 08:00 82 23 105/58 97 Nasal Cannula 2.00 05/10/22 08:00 37.2 05/10/22 07:15 99 Nasal Cannula 2.00 05/10/22 07:00 85 27 110/59 100 Nasal Cannula 2.00 05/10/22 07:00 83 05/10/22 06:00 81 26 92/48 98 Nasal Cannula 2.00 05/10/22 05:00 86 17 92/46 97 Nasal Cannula 2.00 05/10/22 04:00 81 23 86/31 99 Nasal Cannula 2.00 05/10/22 03:09 Nasal Cannula 05/10/22 03:00 84 24 96/44 95 Nasal Cannula 2.00 05/10/22 02:09 99 Nasal Cannula 2.00 05/10/22 02:00 84 23 91/48 98 Nasal Cannula 2.00 05/10/22 01:00 89 05/10/22 01:00 89 23 112/51 99 Nasal Cannula 2.00 05/10/22 00:00 87 26 104/53 98 Nasal Cannula 2.00 05/10/22 00:00 Nasal Cannula 05/09/22 23:00 89 26 104/55 97 Nasal Cannula 2.00 05/09/22 22:07 99 Nasal Cannula 2.00 05/09/22 22:00 89 22 101/58 99 Nasal Cannula 2.00 05/09/22 21:00 86 25 104/50 100 Nasal Cannula 2.00 05/09/22 20:48 Nasal Cannula 05/09/22 20:00 88 24 102/50 98 Nasal Cannula 2.00 05/09/22 19:49 36.7 05/09/22 19:00 89 17 104/59 99 Nasal Cannula 2.00 05/09/22 19:00 89 05/09/22 18:07 99 Nasal Cannula 2.00 05/09/22 18:00 84 27 105/50 98 Nasal Cannula 2.00 05/09/22 17:00 84 21 97/54 98 Nasal Cannula 2.00 05/09/22 16:00 36.8 Nasal Cannula 2.00 05/09/22 16:00 95 Nasal Cannula 2.00 05/09/22 16:00 89 19 111/59 97 Nasal Cannula 2.00 05/09/22 15:18 97 Nasal Cannula 2.00 05/09/22 15:00 83 27 100/55 97 Nasal Cannula 2.00 05/09/22 14:00 84 23 100/55 97 Nasal Cannula 2.00 05/09/22 13:00 82 05/09/22 13:00 79 22 105/52 97 Nasal Cannula 2.00 05/09/22 12:00 85 28 107/54 96 Nasal Cannula 2.00 05/09/22 12:00 96 Nasal Cannula 2.00 05/09/22 11:57 36.6 05/09/22 11:00 86 21 111/52 96 Nasal Cannula 2.00 I & O 05/10/22 07:00 Intake Total 3020 ml Output Total 1700 ml Balance 1320 ml Capillary Refill : Less Than 3 Seconds General Appearance: No Apparent Distress HEENT: PERRL/EOMI, Moist Mucous Membranes Neck: Normal Inspection, Supple Respiratory: Chest Non Tender, Lungs Clear, Normal Breath Sounds, No Accessory Muscle Use, No Respiratory Distress, Wheezing Cardiovascular: Regular Rate, Rhythm, No Murmur Peripheral Pulses: 3+ Radial Pulses (R), 3+ Radial Pulses (L) Gastrointestinal: normal bowel sounds, non tender, soft Extremity: Normal Inspection, Non Tender, No Calf Tenderness, No Pedal Edema Neurologic/Psychiatric: Alert, Oriented x3, No Motor/Sensory Deficits, Normal Mood/Affect Skin: Warm/Dry, Pallor Lymphatic: No Adenopathy Results Lab Laboratory Tests 8/5/22 04:59: White Blood Count 12.3H, Red Blood Count 3.02L, Hemoglobin 8.0L, Hematocrit 26L, Mean Corpuscular Volume 86, Mean Corpuscular Hemoglobin 27, Mean Corpuscular Hemoglobin Concent 31L, Red Cell Distribution Width 17.7H, Platelet Count 465H, Mean Platelet Volume 9.6, Immature Granulocyte % (Auto) 1, Neutrophils (%) (Auto) 83H, Lymphocytes (%) (Auto) 3L, Monocytes (%) (Auto) 13H, Eosinophils (%) (Auto) 1, Basophils (%) (Auto) 0, Neutrophils # (Auto) 10.2H, Lymphocytes # (Auto) 0.4L, Monocytes # (Auto) 1.5H, Eosinophils # (Auto) 0.1, Basophils # (Auto) 0.0, Immature Granulocyte # (Auto) 0.2H, Absolute Reticulocyte Count 30, Percent Reticulocyte Count 1.02, Sodium Level 138, Potassium Level 3.5L, Chloride Level 106, Carbon Dioxide Level 24, Anion Gap 8, Blood Urea Nitrogen 30H, Creatinine 1.12, Estimat Glomerular Filtration Rate 66, BUN/Creatinine Ratio 27, Glucose Level 115H, Calcium Level 7.9L, Corrected Calcium 9.0, Phosphorus Level 2.1L, Magnesium Level 2.0, Total Bilirubin 0.8, Aspartate Amino Transf (AST/SGOT) 62H, Alanine Aminotransferase (ALT/SGPT) 104H, Alkaline Phosphatase 84, Lactate Dehydrogenase 341H, Troponin I 1.013*H, Total Protein 5.1L, Albumin 2.6L 05/10/22 06:58: Stool Occult Blood Immunoassay NEGATIVE Microbiology 05/08/22 Blood Culture - Preliminary, Resulted Staph, Coag Neg (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 Long-term anticoagulation Upper GI bleed Patient transfused two units of PRBCS on 05/08 and responded appropriately by lab work. Patient has had recent endoscopies performed at [place] which she had to undergo cauterization of vessels by Dr. Muñoz in the small bowel. Patient to continue conservative measures at this time. If he continues to bleed where he would need endoscopy with transfer back over because we do not have a capability of push enteroscopy. Follow hemoglobin transfuse PRBC as needed. If can would consider holding anticoagulation/antiplatelets. ROSALIND JEFFERSNO DO 05/10/222102: Subjective Subjective/Events-last exam Patient feeling okay today. Had bm that was darker but hem-. Patient hgb slight drop this morning. No abdominal pain. Denies n/v fever sweats chills shortness of breath or chest pain. Wanting to go home. Objective Exam General Appearance: No Apparent Distress, WD/WN HEENT: PERRL/EOMI, Normal ENT Inspection Neck: Normal Inspection, Non Tender Respiratory: Chest Non Tender, No Accessory Muscle Use, No Respiratory Distress Cardiovascular: Regular Rate, Rhythm, No JVD Gastrointestinal: non tender, soft Extremity: Normal Inspection, Non Tender Neurologic/Psychiatric: Alert, Oriented x3 Skin: Normal Color, Warm/Dry, Pallor Lymphatic: No Adenopathy Assessment/Plan Assessment/Plan Assessment/Plan Anemia - Hb decreased from 8.7 yesterday to 8.0 this morning. Stool hemoccult - Long-term anticoagulation Upper GI bleed Patient transfused two units of PRBCS on 05/08 and responded appropriately by lab work. Patient has had recent endoscopies performed at [place] which she had to undergo cauterization of vessels by Dr. Muñoz in the small bowel. Patient to continue conservative measures at this time. Patient stool hemoocult negative. Repeat hgb this afternoon, possible home. Supervisory-Addendum Brief Verification & Attestation Participated in pt care: history, MDM, physical Personally performed: exam, history, MDM, supervision of care Care discussed with: Medical Student Procedures: n/a Results interpretation: Verified all documentation Verification and Attestation of Medical Student E/M Service A medical student performed and documented this service in my presence. I reviewed and verified all information documented by the medical student and made modifications to such information, when appropriate. I personally performed the physical exam and medical decision making. Rosalind Jefferson, May 10, 2022,21:29 TALIA WALL May 10, 2022 10:40 ROSALIND JEFFERSON DO May 10, 2022 21:03
--- NOTE | 2022-05-10 11:02 | Progress Note ---
Standard Progress Note Progress Notes/Assess & Plan Date Seen by a Provider: May 10, 2022 Time Seen by a Provider: 11:02 Progress/Assessment & Plan called for phos 2.1, will give neutrophos MD ARMAND Montano JOSEPH K MD May 10, 2022 11:02
[2022-05-10] MEDS ORDERED: POT PHOS/NA PHOS (K-PHOS NEUTRAL) PO ONE (11:15)
--- NOTE | 2022-05-10 11:38 | Physical Therapy Evaluation ---
PT Evaluation-General Medical Diagnosis Admission Date May 08, 2022 at 21:48 Medical Diagnosis: severe anemia, GI bleed Onset Date: May 08, 2022 Therapy Diagnosis Therapy Diagnosis: impaired mobility Precautions Precautions/Isolations: Fall Prevention, Pressure Ulcer Referral Physician: Elías Reason for Referral: Evaluation/Treatment Medical History Pertinent Medical History: Atrial Fib, HTN, Hypothroidism Additional Medical History Past Medical History Surgeries: Coronary Stent COPD Atrial Fibrillation, High Cholesterol, Hypertension Renal Failure Gastrointestinal Bleed (upper) Hypothyroidsim Reviewed History: Yes Social History Current Living Status: Spouse Entry Into Home: Level Entry Prior Prior Level of Function SCALE: Activities may be completed with or without assistive devices. 0-Uxcxnncocg-rngapcl completes the activity by him/herself with no assistance from a helper. 5-Set-up or Clean-up Assistance-helper sets up or cleans up; patient completes activity. [place] assists only prior to or following the activity. 4-Supervision or Touching Assistance-helper provides verbal cues and/or touching/steadying and/or contact guard assistance as patient completes activity. Assistance may be provided throughout the activity or intermittently. 3-Partial/Moderate Assistance-helper does LESS THAN HALF the effort. [place] lifts, holds or supports trunk or limbs, but provides less than half the effort. 2-Substantial/Maximal Assistance-helper does MORE THAN HALF the effort. [place] lifts or holds trunk or limbs and provides more than half the effort. 3-Ehbfnxhjy-evxsxf does ALL the effort. Patient does none of the effort to complete the activity. Or, the assistance of 2 or more helpers is required for the patient to complete the activity. If activity was not attempted, code reason: 7-Patient Refused. 9-Not Applicable-not attempted and the patient did not perform the activity before the current illness, exacerbation or injury. 10-Not Attempted due to Environmental Limitations-(lack of equipment, weather restraints, etc.). 88-Not Attempted due to Medical Conditions or Safety Concerns. Bed Mobility: 6 Transfers (B,C,W/C): 6 Gait: 6 Indoor Mobility (Ambulation): Independent Prior Devices Use: Walker PT Evaluation-Current Subjective Patient on commode pre tx, agrees to PT, has no complaints of pain. When done he stands and nurse cleans him. Pt/Family Goals to be independent at home Objective Patient Orientation: Person, Place, Situation Attachments: Oxygen ROM/Strength ROM Lower Extremities WNL Strength Lower Extremities LLE (hip flexion 3+/5, knee flexion 4/5, knee extension 4/5, dorsiflexion 5/5), RLE (hip flexion 3+/5, knee flexion 4/5, knee extension 4/5, dorsiflexion 5/5) Sensory Vision: Functional Hearing: Functional Sensation Right Lower Extremit: Intact Sensation Left Lower Extremity: Intact Transfers Roll Left to Right (QC): 6 Sit to Lying (QC): 3 Sit to Stand (QC): 4 Chair/Cwi-ys-Notwd Xfer(QC): 4 Gait Does the Patient Walk?: Yes Mode of Locomotion: Walk Anticipated Mode of Locomotion: Walk Walk 10 feet (QC): 4 Distance: 20' Gait Assistive Device: FWW Comments/Gait Description slightly SOB after ambulation but O2 was at 91%, with rest it came up to 96% on 2L of O2. Balance Sitting Static: Normal Sitting Dynamic: Normal Standing Static: Good Standing Dynamic: Good Treatment supine BLE exercises x10 (AP, HS) Assessment/Needs Patient in bed post tx with nurse call, OT in room to work with patient. Rehab Potential: Fair PT Snf Goals Snf Goals PT Snf Goals Time Frame: May 17, 2022 Roll Left & Right (QC): 6 Sit to Lying (QC): 6 Lying-Sitting on Side/Bed(QC): 6 Sit to Stand (QC): 6 Chair/Bgy-tx-Jkikw Xfer(QC): 6 Walk 10 feet (QC): 4 (SBA) Walk 50ft with 2 Turns (QC): 4 (SBA) PT Plan Problem List Problem List: Activity Tolerance, Functional Strength, Safety, Balance, Gait, Transfer, Bed Mobility, ROM Treatment/Plan Treatment Plan: Continue Plan of Care Treatment Plan: Bed Mobility, Education, Functional Activity Tatiana, Functional Strength, Gait, Safety, Therapeutic Exercise, Transfers Treatment Duration: May 17, 2022 Frequency: 6 times per week Estimated Hrs Per Day: .25 hour per day Patient and/or Family Agrees t: Yes Safety Risks/Education Patient Education: Gait Training, Transfer Techniques, Correct Positioning, Safety Issues Teaching Recipient: Patient Teaching Methods: Demonstration, Discussion Response to Teaching: Reinforcement Needed Discharge Recommendations Plan Patient will perform bed mobility and transfer training, balance and endurance training, functional strengthening, gait training, and education, to improve functional mobility and independence at home. Therapy Discharge Recommendati: Scheduled Assistance, Home & Family, Post Acute PT Time/GCodes Time In: 1115 Time Out: 1128 Total Billed Treatment Time: 13 Total Billed Treatment 1 visit NESHA Coley' RACHEL KAPOOR PT May 10, 2022 11:37
[2022-05-10] MEDS: NOREPINEPHRINE 8 MG/250 ML 250 ML IV SCH (11:50)
--- NOTE | 2022-05-10 11:55 | Occupational Therapy Eval ---
OT Evaluation-General/PLF Medical Diagnosis Admission Date May 08, 2022 at 21:48 Medical Diagnosis: severe anemia, GI bleed Onset Date: May 08, 2022 Therapy Diagnosis Therapy Diagnosis: reduced endurance, adl status Precautions Precautions/Isolations: Fall Prevention, Standard Precautions, Pressure Ulcer Referral Physician: Elías Joy Reason: Evaluation/Treatment Medical History Pertinent Medical History: Atrial Fib, COPD, HTN, Hypothroidism Additional Medical History chronic cough, 2L oxygen at baseline, indewharjeet corbett Current History Pt presented to ER with anemia and elevated troponin levels. Per patient, he lives with his and son in a single story home, 2 steps to enter. He reports modified independence (extra time due to SOA) with adls, does assist with bathing intermittently. Family does all IADLs. He uses a walker at baseline. Sedentary lifestyle Reviewed History: Yes Social History Home: Single Level Current Living Status: Spouse Entry Into Home: Level Entry ADL-Prior Level of Function SCALE: Activities may be completed with or without assistive devices. 5-Jycyzkebvc-eodbzzf completes the activity by him/herself with no assistance from a helper. 5-Set-up or Clean-up Assistance-helper sets up or cleans up; patient completes activity. [place] assists only prior to or following the activity. 4-Supervision or Touching Assistance-helper provides verbal cues and/or touching/steadying and/or contact guard assistance as patient completes activity. Assistance may be provided throughout the activity or intermittently. 3-Partial/Moderate Assistance-helper does LESS THAN HALF the effort. [place] lifts, holds or supports trunk or limbs, but provides less than half the effort. 2-Substantial/Maximal Assistance-helper does MORE THAN HALF the effort. [place] lifts or holds trunk or limbs and provides more than half the effort. 4-Xzpqijqer-lnzmtf does ALL the effort. Patient does none of the effort to complete the activity. Or, the assistance of 2 or more helpers is required for the patient to complete the activity. If activity was not attempted, code reason: 7-Patient Refused. 9-Not Applicable-not attempted and the patient did not perform the activity before the current illness, exacerbation or injury. 10-Not Attempted due to Environmental Limitations-(lack of equipment, weather restraints, etc.). 88-Not Attempted due to Medical Conditions or Safety Concerns. Self Care: Needed Some Help Functional Cognition: Needed Some Help DME/Equipment: Bath Chair, Grab Bars, Shower Drive Self: No OT Current Status Subjective Pt denies pain, reports wanting to go home soon. Appearance Pt returned to supine in bed, all needs within reach at therapy departure. Mental Status/Objective Patient Orientation: Person, Place, Situation Attachments: [place] Catheter (indwelling catheter ), Oxygen, Telemetry Current Glasses/Contacts: Yes Hand Dominance: Right Upper Extremity ROM Bilateral shoulders: ~135 degrees, baseline Elbow-distally: WNL Upper Extremity Strength debilitated, 3+/5 grossly ADL-Treatment Eating (QC): 5 Oral Hygiene (QC): 5 (per clinical judgement) Toileting Hygiene (QC): 3 (per report) Pt ambulating back to bed with physical therapy, CGA, and use of walker. No unsteadiness observed, slow gait. Mild SOA exhibited post activity, oxygen 91%. Quickly recovers to 96% once sitting. Currently on 2L (baseline). Returns to supine. Agreeable to complete UE exercises with focus on improving strength and endurance needed for functional tasks. All shoulder movements performed within available range; ~135 degrees. Pt fatigues quickly, but able to complete all reps in set before taking a rest break. 1x8 all planes. Education OT Patient Education: Correct positioning, Exercise program, Purpose of tx/functional activities, Safety issues Teaching Recipient: Patient Teaching Methods: Demonstration, Discussion Response to Teaching: Verbalize Understanding, Return Demonstration, Reinforcement Needed OT Alf Goals Ironing Pleater Goals Time Frame: May 24, 2022 Toileting Hygiene (QC): 4 Shower/Bathe Self (QC): 4 Upper Body Dressing (QC): 4 Lower Body Dressing (QC): 4 On/Off Footwear (QC): 4 1=Demonstrate adherence to instructed precautions during ADL tasks. 2=Patient will verbalize/demonstrate understanding of assistive devices/modifications for ADL. 3=Patient will improve strength/tolerance for activity to enable patient to perform ADL's. OT Education/Plan Problem List/Assessment Assessment: Decreased Activ Tolerance, Decreased UE Strength, Impaired Funct Balance, Impaired Self-Care Skills, Restricted Funct UE ROM Discharge Recommendations Plan/Recommendations: Continue POC Treatment Plan/Plan of Care Treatment,Training & Education: Yes Patient would benefit from OT for education, treatment and training to promote independence in ADL's, mobility, safety and/or upper extremity function for ADL's. Plan of Care: ADL Retraining, Functional Mobility, Group Exercise/Act as Ind, UE Funct Exercise/Act Treatment Duration: May 24, 2022 Frequency: 3 times per week (3-5x/week) Estimated Hrs Per Day: .25 hour per day Agreement: Yes Rehab Potential: Fair Time/GCodes Start Time: 11:22 Stop Time: 11:35 Total Time Billed (hr/min): 13 Billed Treatment Time 1 visit Tamiko Mckinley OT May 10, 2022 11:55
[2022-05-10] MEDS ORDERED: CEFEPIME INJECTION 1,000 MG in NS (IVPB) 50 ML IV SCH (12:00)
[2022-05-10] MEDS ORDERED: CEFD300C3 PO (13:23)
--- NOTE | 2022-05-10 13:28 | D/C HH Face to Face Order ---
D/C Face to Face Orders Instructions for Patient Via [facility], Patient Instructions/FollowUp: See instructions Physician to follow Patient: Mark Discharge Diet for Home: Low Sodium Diet Patient Data-Allergies,Ht & Wt Patient Allergies: Coded Allergies: Penicillins (Unverified Allergy, Mild, RASH, 12/23/06) Home Health Need/Face to Face Date of Face to Face: May 10, 2022 Clinical Findings: Generalized weakness and fatigue, Instability, Muscle weakness, Shortness of breath, Unsteady gait I have seen Pt frgo-za-coim: Yes Discharged To: Home Diagnosis/Conditions: Anemia Pneumonia COPD CHF Problems/Diagnosis/Condition: (1) Severe anemia (2) Pneumonia (3) Chronic GI bleeding (4) COPD (chronic obstructive pulmonary disease) (5) Chronic heart failure with preserved ejection fraction (HFpEF) Patient is Homebound due to: [place] fall risk due to instabilty, Muscle weakness, Shortness of breath/distress Homebound Status Due to the above stated illness, injury or surgical procedure (medical condition or diagnosis) and associated clinical findings, the patient is homebound because of his/her inability to leave home except with aid of a supportive device and/or person AND leaving the home requires a considerable and taxing effort or is medically contraindicated. Pt req the following assistanc: Aid of another person Home Health Nursing Orders Home Health Services Order: Nursing Services, Color Control Supervisor-Evaluate & Treat, Physical Therapy-Evaluate & Treat Home Health Infusion Therapy Line Start Date: May 08, 2022 Home Health Lab Orders Labs (specify type/freq): Hemoglobin/Hematocrit on Sunday 05/13 Therapy Orders Therapy Orders: OT (must have SN or PT order), Physical Therapy Therapy Specific Orders: Eval assistive deivces, Teach enviro modifications/safety, Gait training, Increase strength/endurance Certify Stmt I certify that this patient is under my care and that I, a nurse practitioner or a physician; a assistant commissioner working with me, had a face to face encounter that - meets the physician face to face encounter requirements with this patient as dated. KIEL ESCOBAR MD May 10, 2022 13:28
[2022-05-10 15:57] LABS: HEMOGLOBIN 8.6 g/dL (13.3-17.7)
--- NOTE | 2022-05-10 20:35 | Discharge Summary ---
Discharge Summary Hospital Course Problems/Dx: (1) Severe anemia Status: Acute (2) Chronic GI bleeding Status: Chronic (3) Pneumonia Status: Acute Qualifiers: Qualified Codes: J18.9 - Pneumonia, unspecified organism (4) CAD (coronary artery disease) Status: Chronic (5) NSTEMI (non-ST elevation myocardial infarction) Status: Acute (6) Acute kidney injury Status: Acute (7) Paroxysmal atrial fibrillation Status: Chronic (8) Chronic heart failure with preserved ejection fraction (HFpEF) Status: Chronic (9) COPD (chronic obstructive pulmonary disease) Status: Chronic Hospital Course Date of Admission: May 08, 2022 at 21:48 Admission Diagnosis : Severe anemia Family Physician/Provider: Molly Raymundo MD Date of Discharge: 05/10/22 Discharge Diagnosis: Severe anemia, chronic GI bleeding, CHAZ on CKD, NSTEMI Hospital Course: Bharat Webber is an 81 year old male who was admitted with severe anemia. He was given two units PRBC. His hemoglobin increased appropriately. He has had issues with chronic GI bleeding. 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 His hemoglobin stabilized. His occult blood was negative. Surgery was consulted and recommended conservative management. His course was complicated by CHAZ on CKD. He also had an NSTEMI, thought to be type II due to demand ischemia from severe anemia. Cardiology was consulted and recommended conservative management. He was debilitated and was set up with home health care. He should follow up with Dr. Raymundo next week. He will need a repeat hemoglobin check next week also. Labs and Pending Lab Test: Laboratory Tests 05/10/22 04:59: White Blood Count 12.3H, Red Blood Count 3.02L, Hemoglobin 8.0L, Hematocrit 26L, Mean Corpuscular Volume 86, Mean Corpuscular Hemoglobin 27, Mean Corpuscular Hemoglobin Concent 31L, Red Cell Distribution Width 17.7H, Platelet Count 465H, Mean Platelet Volume 9.6, Immature Granulocyte % (Auto) 1, Neutrophils (%) (Auto) 83H, Lymphocytes (%) (Auto) 3L, Monocytes (%) (Auto) 13H, Eosinophils (%) (Auto) 1, Basophils (%) (Auto) 0, Neutrophils # (Auto) 10.2H, Lymphocytes # (Auto) 0.4L, Monocytes # (Auto) 1.5H, Eosinophils # (Auto) 0.1, Basophils # (Auto) 0.0, Immature Granulocyte # (Auto) 0.2H, Absolute Reticulocyte Count 30, Percent Reticulocyte Count 1.02, Haptoglobin [Pending], Sodium Level 138, Potassium Level 3.5L, Chloride Level 106, Carbon Dioxide Level 24, Anion Gap 8, Blood Urea Nitrogen 30H, Creatinine 1.12, Estimat Glomerular Filtration Rate 66, BUN/Creatinine Ratio 27, Glucose Level 115H, Calcium Level 7.9L, Corrected Calcium 9.0, Phosphorus Level 2.1L, Magnesium Level 2.0, Total Bilirubin 0.8, Aspartate Amino Transf (AST/SGOT) 62H, Alanine Aminotransferase (ALT/SGPT) 104H, Alkaline Phosphatase 84, Lactate Dehydrogenase 341H, Troponin I 1.013*H, Total Protein 5.1L, Albumin 2.6L 05/10/22 06:58: Stool Occult Blood Immunoassay NEGATIVE 05/10/22 15:45: Hemoglobin 8.6L, Hematocrit 27L Microbiology 05/09/22 Blood Culture - Preliminary, Resulted No growth 05/08/22 MRSA Screen - Final, Complete MRSA not isolated 05/08/22 Urine Culture - Preliminary, Resulted Pseudomonas aeruginosa Testing In Progress Home Meds Active Cefdinir 300 Mg Capsule 300 Mg PO BID 5 Days Reported Urecholine (Bethanechol Chloride) 10 Mg Tablet 10 Mg PO QIDPCHS (2 HR AFTER MEALS) Flomax (Tamsulosin HCl) 0.4 Mg Cap 0.4 Mg PO Q12H Carafate (Sucralfate) 1 Gram Tablet 1 Gm PO ACHS Pantoprazole Sodium 40 Mg Tablet.dr 40 Mg PO 0800,1600 Montelukast Sodium 10 Mg Tablet 10 Mg PO HS Levothyroxine Sodium 125 Mcg Tablet 125 Mcg PO DAILY Furosemide 40 Mg Tablet 40 Mg PO DAILY Culturelle (Lactobacillus Rhamnosus GG) 10 Billion Cell Capsule 1 Each PO DAILY Atorvastatin Calcium 40 Mg Tablet 40 Mg PO HS Amiodarone HCl 200 Mg Tablet 200 Mg PO BID Albuterol Sulfate 2.5 Mg/0.5 Ml Vial.neb 2.5 Mg INH Q6H PRN Advair Hfa 115-21 Mcg Inhaler (Fluticasone/Salmeterol) 115 Mcg-21 Mcg/Actuation Hfa.aer.ad 2 Puff IH BID PRN Iron (Ferrous Sulfate) 325 Mg (65 Mg Iron) Tablet 325 Mg PO BID Aspirin EC (Aspirin) 81 Mg Tablet.dr 81 Mg PO DAILY Assessment/Pt Instructions See instructions Discharge Planning: >30 minutes discharge planning Discharge Instructions Discharge Diet: No Restrictions Activity as Tolerated: Yes Consultations Surgery, Cardiology, TeleICU Discharge Physical Examination Vital Signs Vital Signs Date Time Temp Pulse Resp B/P (MAP) Pulse Ox O2 Delivery O2 Flow Rate FiO2 05/10/22 17:35 05/10/22 16:00 Nasal Cannula 2.00 05/10/22 16:00 83 21 99 05/10/22 08:00 37.2 General Appearance: No Apparent Distress, Chronically ill Respiratory: Lungs Clear, No Respiratory Distress Cardiovascular: Regular Rate, Rhythm, No Murmur Gastrointestinal: Normal Bowel Sounds, Soft Extremity: Normal Inspection, No Pedal Edema Skin: Normal Color, Warm/Dry Neurologic/Psychiatric: Alert, Normal Mood/Affect, Motor Weakness Allergies: Coded Allergies: Penicillins (Unverified Allergy, Mild, RASH, 12/23/06) Copy Copies To 1: MOLLY RAYMUNDO MD Discharge Summary Date of Admission May 08, 2022 at 21:48 Date of Discharge May 10, 2022 at 17:25 Discharge Date: May 10, 2022 Discharge Time: 17:25 Admission Diagnosis Severe anemia Consults/Procedures Consulations Cardiology, Surgery, TeleICU Discharge Diagnosis Severe anemia Chronic GI bleeding Small bowel AVMs Pneumonia NSTEMI CAD CHAZ on CKD HTN HLD AFib COPD HFpEF GENIA Hypothyroidism BPH (1) Severe anemia Status: Acute (2) Chronic GI bleeding Status: Chronic (3) Pneumonia Status: Acute Qualifiers: Qualified Codes: J18.9 - Pneumonia, unspecified organism (4) CAD (coronary artery disease) Status: Chronic (5) NSTEMI (non-ST elevation myocardial infarction) Status: Acute (6) Acute kidney injury Status: Acute (7) Paroxysmal atrial fibrillation Status: Chronic (8) Chronic heart failure with preserved ejection fraction (HFpEF) Status: Chronic (9) COPD (chronic obstructive pulmonary disease) Status: Chronic KIEL ESCOBAR MD May 10, 2022 20:29
== END 2022-05-10 17:25 | disposition home health service (06) | DRG 811 ==
LOC: EDUNIT# 17:27 → ER 17:29 → ICU 21:48
PROVIDERS: ADMIT Internal Medicine; ATTEND Internal Medicine
DX: D50.9 Iron deficiency anemia, unspecified (principal); J18.9 Pneumonia, unspecified organism; I21.A1 Myocardial infarction type 2; N17.9 Acute kidney failure, unspecified; I50.32 Chronic diastolic (congestive) heart failure; I13.0 Hypertensive heart and chronic kidney disease with heart failure and stage 1 through stage 4 chronic kidney disease, or unspecified chronic kidney disease; K92.2 Gastrointestinal hemorrhage, unspecified; I25.10 Atherosclerotic heart disease of native coronary artery without angina pectoris; N18.9 Chronic kidney disease, unspecified; I48.0 Paroxysmal atrial fibrillation; J44.9 Chronic obstructive pulmonary disease, unspecified; D63.1 Anemia in chronic kidney disease; N40.0 Benign prostatic hyperplasia without lower urinary tract symptoms; E03.9 Hypothyroidism, unspecified; Z95.5 Presence of coronary angioplasty implant and graft; E78.00 Pure hypercholesterolemia, unspecified; Z20.822 Contact with and (suspected) exposure to COVID-19; I95.9 Hypotension, unspecified; Z79.82 Long term (current) use of aspirin; Z79.899 Other long term (current) drug therapy; Z79.01 Long term (current) use of anticoagulants; I65.22 Occlusion and stenosis of left carotid artery
CPT/HCPCS: 36415; 71045; 80053; 80061; 81000; 82274; 83010; 83605; 83615; 83690; 83735; 83874; 83880; 84100; 84145; 84484; 85007; 85014; 85018; 85025; 85027; 85045; 85610; 85730; 86141; 86850; 86900; 86901; 86920; 87040; 87077; 87081; 87088; 87184; 87636; 93005; 93041; 93306; 94640; 94664; 94760

== ENCOUNTER 2022-06-18 15:26 | Emergency (ER) | payer MEDICARE, OTHER ==
[~2022-06-18] VITALS: Ht 172 cm; Wt 72.0 kg
[2022-06-18 15:42] VITALS: BP 114/61
[2022-06-18 16:02] LABS: BASOPHILS % (AUTO) 0 % (0-10); EOSINOPHILS % (AUTO) 0 % (0-10); HEMATOCRIT 25 % (40-54); HEMOGLOBIN 8.2 g/dL (13.3-17.7); LYMPHOCYTES # (AUTO) 0.6 10^3/uL (1.0-4.0); LYMPHOCYTES % (AUTO) 11 % (12-44); MEAN CORPUSCULAR HEMOGLOBIN 28 pg (25-34); MEAN CORPUSCULAR HGB CONC 32 g/dL (32-36); MEAN CORPUSCULAR VOLUME 86 fL (80-99); MEAN PLATELET VOLUME 10.1 fL (9.0-12.2); MONOCYTES # (AUTO) 0.5 10^3/uL (0.0-1.0); MONOCYTES % (AUTO) 9 % (0-12); NEUTROPHILS # (AUTO) 4.2 10^3/uL (1.8-7.8); NEUTROPHILS % (AUTO) 79 % (42-75); PLATELET COUNT 552 10^3/uL (130-400); WHITE BLOOD COUNT 5.3 10^3/uL (4.3-11.0)
--- NOTE | 2022-06-18 16:04 | Diagnostic Imaging Report ---
CHEST 1 VIEW, AP/PA ONLY Indication: Chest pain. Comparison: 05/08/2022 Findings: Multifocal basilar consolidations persist. New left midlung zone consolidations have developed. Small right pleural effusion is similar. Normal heart size. No pneumothorax. Impression: 1. New left midlung zone consolidations may be due to pneumonia or pneumonitis. 2. Bibasilar consolidations are similar to prior exam. Dictated by: Dictated on workstation # [id number]
--- NOTE | 2022-06-18 16:10 | ED Cardiac General ---
History of Present Illness General Chief Complaint: Cardiac/General Problems Stated Complaint: HEART ISSUES Nursing Triage Note: WENT TO DR. HAIR FOR A FOLLOW UP AND REPORTED A BLOOD PRESSURE OF 70'S/40'S AND WAS SENT TO ED FROM DR. COLON'Get. Source: patient Exam Limitations: no limitations History of Present Illness Date Seen by Provider: Jun 18, 2022 Time Seen by Provider: 15:43 Initial Comments This is an 82-year-old male who presented to the ER from Dr. Colon's office for concerns of hypotension. Allergies and Home Medications Allergies Coded Allergies: Penicillins (Unverified Allergy, Mild, RASH, 12/23/06) Patient Home Medication List Albuterol Sulfate (Albuterol Sulfate) 2.5 Mg/0.5 Ml Vial.neb, 2.5 MG INH Q6H PRN for SHORTNESS OF BREATH, (Reported) Entered as Reported by: DIANE SUMMERS on 05/09/22 151 Amiodarone HCl (Amiodarone HCl) 200 Mg Tablet, 200 MG PO BID, (Reported) Entered as Reported by: DIANE SUMMERS on 05/09/22 151 Aspirin (Aspirin EC) 81 Mg Tablet.dr, 81 MG PO DAILY, (Reported) Entered as Reported by: DIANE SUMMERS on 05/09/22 151 Atorvastatin Calcium (Atorvastatin Calcium) 40 Mg Tablet, 40 MG PO HS, (Reported) Entered as Reported by: DIANE SUMMERS on 05/09/221509 Bethanechol Chloride (Urecholine) 10 Mg Tablet, 10 MG PO QIDPCHS (2 HR AFTER MEALS), (Reported) Entered as Reported by: DIANE SUMMERS on 05/09/22 151 Cefdinir (Cefdinir) 300 Mg Capsule, 300 MG PO BID Prescribed by: KIEL ESCOBAR on 05/10/22 1323 Ferrous Sulfate (Iron) 325 Mg (65 Mg Iron) Tablet, 325 MG PO BID, (Reported) Entered as Reported by: DIANE SUMMERS on 05/09/22 151 Fluticasone/Salmeterol (Advair Hfa 115-21 Mcg Inhaler) 115 Mcg-21 Mcg/Actuation Hfa.aer.ad, 2 PUFF IH BID PRN for SHORTNESS OF BREATH, (Reported) Entered as Reported by: DIANE SUMMERS on 05/09/221509 Furosemide (Furosemide) 40 Mg Tablet, 40 MG PO DAILY, (Reported) Entered as Reported by: DIANE SUMMERS on 05/09/221509 Lactobacillus Rhamnosus GG (Culturelle) 10 Billion Cell Capsule, 1 EACH PO DAILY, (Reported) Entered as Reported by: DIANE SUMMERS on 05/09/221509 Levothyroxine Sodium (Levothyroxine Sodium) 125 Mcg Tablet, 125 MCG PO DAILY, (Reported) Entered as Reported by: DIANE SUMMERS on 05/09/221509 Montelukast Sodium (Montelukast Sodium) 10 Mg Tablet, 10 MG PO HS, (Reported) Entered as Reported by: DIANE SUMMERS on 05/09/221509 Pantoprazole Sodium (Pantoprazole Sodium) 40 Mg Tablet.dr, 40 MG PO 0800,1600, (Reported) Entered as Reported by: DIANE SUMMERS on 05/09/221509 Sucralfate (Carafate) 1 Gram Tablet, 1 GM PO ACHS, (Reported) Entered as Reported by: DIANE SUMMERS on 05/09/221509 Tamsulosin HCl (Flomax) 0.4 Mg Cap, 0.4 MG PO Q12H, (Reported) Entered as Reported by: DIANE SUMMERS on 05/09/221509 Past Tjizbnl-Nkhbsn-Zzjiwv Hx Patient Social History Tobacco Use?: No Smoking Status: Former Smoker Use of E-Cig and/or Vaping dev: No Substance use?: No Alcohol Use?: No Pt feels they are or have been: No Immunizations Up To Date Influenza Vaccine Up-to-Date: No; Not Current Past Medical History Surgery/Hospitalization HX: HTN, COPD, CAD, REFLUX CARDIAC STENTS, L KNEE Surgeries: Yes Coronary Stent Respiratory: Yes COPD Cardiac: Yes Atrial Fibrillation, High Cholesterol, Hypertension Reproductive Disorders: No Renal Failure Gastrointestinal Bleed Endocrine: Yes Hypothyroidsim Family Medical History No Pertinent Family Hx Physical Exam Vital Signs Vital Signs - First Documented 06/18/22 15:42 Temp 35.9 Pulse 87 Resp 22 B/P (MAP) 114/61 Pulse Ox 96 O2 Delivery Room Air Capillary Refill : Less Than 3 Seconds Height, Weight, BMI Height: '" Weight: lbs. oz. kg; 24.00 BMI Method: Progress/Results/Core Measures Results/Orders Lab Results Laboratory Tests Test 06/18/22 15:45 Range/Units White Blood Count 5.3 4.3-11.0 10^3/uL Red Blood Count 2.96 L 4.30-5.52 10^6/uL Hemoglobin 8.2 L 13.3-17.7 g/dL Hematocrit 25 L 40-54 % Mean Corpuscular Volume 86 80-99 fL Mean Corpuscular Hemoglobin 28 25-34 pg Mean Corpuscular Hemoglobin Concent 32 32-36 g/dL Red Cell Distribution Width 18.6 H 10.0-14.5 % Platelet Count 552 H 130-400 10^3/uL Mean Platelet Volume 10.1 9.0-12.2 fL Immature Granulocyte % (Auto) 1 % Neutrophils (%) (Auto) 79 H 42-75 % Lymphocytes (%) (Auto) 11 L 12-44 % Monocytes (%) (Auto) 9 0-12 % Eosinophils (%) (Auto) 0 0-10 % Basophils (%) (Auto) 0 0-10 % Neutrophils # (Auto) 4.2 1.8-7.8 10^3/uL Lymphocytes # (Auto) 0.6 L 1.0-4.0 10^3/uL Monocytes # (Auto) 0.5 0.0-1.0 10^3/uL Eosinophils # (Auto) 0.0 0.0-0.3 10^3/uL Basophils # (Auto) 0.0 0.0-0.1 10^3/uL Immature Granulocyte # (Auto) 0.0 0.0-0.1 10^3/uL Prothrombin Time 14.6 12.2-14.7 SEC INR Comment 1.1 0.8-1.4 Activated Partial Thromboplast Time 34 24-35 SEC Sodium Level 135 135-145 MMOL/L Potassium Level 3.3 L 3.6-5.0 MMOL/L Chloride Level 99 98-107 MMOL/L Carbon Dioxide Level 23 21-32 MMOL/L Anion Gap 13 5-14 MMOL/L Blood Urea Nitrogen 14 7-18 MG/DL Creatinine 0.90 0.60-1.30 MG/DL Estimat Glomerular Filtration Rate 86 BUN/Creatinine Ratio 16 Glucose Level 116 H 70-105 MG/DL Calcium Level 8.2 L 8.5-10.1 MG/DL Corrected Calcium 9.2 8.5-10.1 MG/DL Magnesium Level 1.9 1.6-2.4 MG/DL Total Bilirubin 0.4 0.1-1.0 MG/DL Aspartate Amino Transf (AST/SGOT) 77 H 5-34 U/L Alanine Aminotransferase (ALT/SGPT) 84 H 0-55 U/L Alkaline Phosphatase 119 40-136 U/L Total Creatine Kinase 44 30-200 U/L Creatine Kinase MB 2.6 <6.6 NG/ML Myoglobin 133.8 H 10.0-92.0 NG/ML Troponin I < 0.028 <0.028 NG/ML B-Type Natriuretic Peptide 109.1 H <100.0 PG/ML Total Protein 5.6 L 6.4-8.2 GM/DL Albumin 2.8 L 3.2-4.5 GM/DL My Orders Orders - MELI PAPPAS DIRECTOR [employer] Cbc With Automated Diff (06/18/22 15:36) Magnesium (06/18/22 15:36) Chest 1 View, Ap/Pa Only (06/18/22 15:36) Ekg Tracing (06/18/22 15:36) Comprehensive Metabolic Panel (06/18/22 15:36) Myoglobin Serum (06/18/22 15:36) Protime With Inr (06/18/22 15:36) Partial Thromboplastin Time (06/18/22 15:36) O2 (06/18/22 15:36) Monitor-Rhythm Ecg Trace Only (06/18/22 15:36) Ed Iv/Invasive Line Start (06/18/22 15:36) Creatine Kinase (06/18/22 15:36) Creatine Kinase Mb (06/18/22 15:36) Bnp Day (06/18/22 15:36) Troponin I Ines (06/18/22 15:36) Thyroid Stimulating Hormone (06/18/22 17:35) Vital Signs/I&O 06/18/22 06/18/22 15:42 15:42 Temp 35.9 Pulse 87 Resp 22 B/P (MAP) 114/61 Pulse Ox 96 O2 Delivery Room Air Room Air Blood Pressure Mean: 78 Departure Impression Primary Impression: Chronic anemia Additional Impression: Weakness Disposition: 01 HOME, SELF-CARE Condition: Improved Departure-Patient Inst. Decision time for Depature: 17:38 Referrals: GRIS RAYMUNDO MD (PCP/Family) Primary Care Physician Patient Instructions: Weakness ED Add. Discharge Instructions: Plan: 1. Follow up with Dr. Raymundo as previously scheduled. 2. If you notice any increased cough, green or yellow mucus, fever, increase love rtness of breath please follow-up with your doctor or return for further evaluation. 3. Return to the ER for any new, concerning, worsening symptoms. All discharge instructions reviewed with patient and/or family. Voiced understanding. MELI PAPPAS DIRECTOR [employer] Jun 18, 2022 16:10
[2022-06-18 16:23] LABS: INR 1.1 (0.8-1.4); PROTHROMBIN TIME PATIENT 14.6 SEC (12.2-14.7)
[2022-06-18 16:33] LABS: ALBUMIN 2.8 GM/DL (3.2-4.5); POTASSIUM 3.3 MMOL/L (3.6-5.0)
[2022-06-18 16:34] LABS: CALCIUM 8.2 MG/DL (8.5-10.1)
[2022-06-18 16:35] LABS: TOTAL PROTEIN 5.6 GM/DL (6.4-8.2)
[2022-06-18 16:37] LABS: BILIRUBIN,TOTAL 0.4 MG/DL (0.1-1.0)
[2022-06-18 16:39] LABS: CREATININE SERUM 0.9 MG/DL (0.60-1.30)
[2022-06-18 16:42] LABS: MAGNESIUM 1.9 MG/DL (1.6-2.4)
[2022-06-18 16:49] LABS: CREATINE KINASE MB 2.6 NG/ML (<6.6)
== END 2022-06-18 17:50 | disposition home or self-care (01) ==
LOC: EDUNIT# 15:26 → ER 15:34
DX: D64.89 Other specified anemias (principal); Z87.891 Personal history of nicotine dependence; Z28.310 Unvaccinated for COVID-19
CPT/HCPCS: 36415; 71045; 80053; 82550; 82553; 83735; 83874; 83880; 84443; 84484; 85025; 85610; 85730; 93005; 93041

== ENCOUNTER → 2022-06-18 | Outpatient (CLI) | payer MEDICARE, OTHER ==
[~2022-06-18] MED LIST changes: +AMIO200T65 PO; +ASPI-1238 PO; +BTH10T PO; +CLOP75TA28 PO; +FERR-84 PO; +FLUT12AE4 IH; +FURO40TA4 PO
== END ==
LOC: LABNPT 13:45
PROVIDERS: ATTEND Family Medicine
DX: D64.9 Anemia, unspecified (principal); Z87.19 Personal history of other diseases of the digestive system
CPT/HCPCS: 82728; 83540

== ENCOUNTER 2023-03-26 10:39 | Emergency (ER) | payer MEDICARE, OTHER ==
[~2023-03-26 10:39] MED LIST changes: +BISA5TAB20 PO; -BISA5TAB8 PO; +DILT180C71 PO; -DILT180C82 PO
[2023-03-26 11:16] LABS: BASOPHILS % (AUTO) 0 % (0-10); EOSINOPHILS # (AUTO) 0.2 10^3/uL (0.0-0.3); EOSINOPHILS % (AUTO) 3 % (0-10); HEMATOCRIT 25 % (40-54); HEMOGLOBIN 7.8 g/dL (13.3-17.7); LYMPHOCYTES % (AUTO) 12 % (12-44); MEAN CORPUSCULAR HEMOGLOBIN 30 pg (25-34); MEAN CORPUSCULAR HGB CONC 31 g/dL (32-36); MEAN CORPUSCULAR VOLUME 95 fL (80-99); MEAN PLATELET VOLUME 10.5 fL (9.0-12.2); MONOCYTES # (AUTO) 0.7 10^3/uL (0.0-1.0); MONOCYTES % (AUTO) 9 % (0-12); NEUTROPHILS # (AUTO) 6.1 10^3/uL (1.8-7.8); NEUTROPHILS % (AUTO) 76 % (42-75); PLATELET COUNT 380 10^3/uL (130-400)
--- NOTE | 2023-03-26 11:17 | ED General ---
General Stated Complaint: ANEMIC Source of Information: Patient Exam Limitations: No Limitations History of Present Illness Date Seen by Provider: Mar 26, 2023 Time Seen by Provider: 11:14 Initial Comments Patient Is a 82-year-old male with a history of coronary artery disease, chronic anemia, history of GI bleeds, small bowel AVMs who presents the ED with family for concern for low hemoglobin. Had a hemoglobin of 11.4 in January. Lab work drawn yesterday by Dr. RAYMUNDO office with a hemoglobin of 7.7. Recently started Eliquis March 14 secondary to placement of a watchman by Dr. YODER. It was recommended come to ED for the anemia. Patient states over the past 3 to 4 days he has felt weak which is not typically new for him. Slightly pale. Patient states he has been feeling really fatigued. Decrease energy levels. Reports dark stool but currently on iron supplements as well. Patient states he was seen at [facility] last fall had multiple nonbleeding AVMs of the small bowel that were ablated using APC. Patient denies cough, chest pain, headache, dizziness, visual changes, dysuria, abdominal pain, shortness of breath. Patient had a double-balloon enteroscopy performed by Dr. Lincoln Somers [facility] in July 2022 Allergies and Home Medications Allergies Coded Allergies: Penicillins (Unverified Allergy, Mild, RASH, 12/23/06) Patient Home Medication List Home Medication List Reviewed: Yes Albuterol Sulfate (Albuterol Sulfate) 2.5 Mg/0.5 Ml Vial.neb, 2.5 MG INH Q6H PRN for SHORTNESS OF BREATH, (Reported) Entered as Reported by: DIANE SUMMERS on 05/09/221509 Amiodarone HCl (Amiodarone HCl) 200 Mg Tablet, 200 MG PO BID, (Reported) Entered as Reported by: DIANE SUMMERS on 05/09/221509 Aspirin (Aspirin EC) 81 Mg Tablet., 81 MG PO DAILY, (Reported) Entered as Reported by: DIANE SUMMERS on 05/09/221509 Atorvastatin Calcium (Atorvastatin Calcium) 40 Mg Tablet, 40 MG PO HS, (Reported) Entered as Reported by: DIANE SUMMERS on 05/09/221509 Bethanechol Chloride (Urecholine) 10 Mg Tablet, 10 MG PO QIDPCHS (2 HR AFTER MEALS), (Reported) Entered as Reported by: DIANE SUMMERS on 05/09/221509 Cefdinir (Cefdinir) 300 Mg Capsule, 300 MG PO BID Prescribed by: KIEL ESCOBAR on 05/10/22 1323 Cefdinir (Cefdinir) 300 Mg Capsule, 300 MG PO BID Prescribed by: COLIN DELGADILLO on 03/26/23 1244 Ferrous Sulfate (Iron) 325 Mg (65 Mg Iron) Tablet, 325 MG PO BID, (Reported) Entered as Reported by: DIANE SUMMERS on 05/09/221509 Fluticasone/Salmeterol (Advair Hfa 115-21 Mcg Inhaler) 115 Mcg-21 Mcg/Actuation Hfa.aer.ad, 2 PUFF IH BID PRN for SHORTNESS OF BREATH, (Reported) Entered as Reported by: DIANE SUMMERS on 05/09/221509 Furosemide (Furosemide) 40 Mg Tablet, 40 MG PO DAILY, (Reported) Entered as Reported by: DIANE SUMMERS on 05/09/221509 Lactobacillus Rhamnosus GG (Culturelle) 10 Billion Cell Capsule, 1 EACH PO DAILY, (Reported) Entered as Reported by: DIANE SUMMERS on 05/09/221509 Levothyroxine Sodium (Levothyroxine Sodium) 125 Mcg Tablet, 125 MCG PO DAILY, (Reported) Entered as Reported by: DIANE SUMMERS on 05/09/221509 Montelukast Sodium (Montelukast Sodium) 10 Mg Tablet, 10 MG PO HS, (Reported) Entered as Reported by: DIANE SUMMERS on 05/09/221509 Pantoprazole Sodium (Pantoprazole Sodium) 40 Mg Tablet.dr, 40 MG PO 0800,1600, (Reported) Entered as Reported by: DIANE SUMMERS on 05/09/221509 Sucralfate (Carafate) 1 Gram Tablet, 1 GM PO ACHS, (Reported) Entered as Reported by: DIANE SUMMERS on 05/09/221509 Tamsulosin HCl (Flomax) 0.4 Mg Cap, 0.4 MG PO Q12H, (Reported) Entered as Reported by: DIANE SUMMERS on 05/09/221509 Review of Systems Review of Systems Constitutional: No chills, No diaphoresis; malaise, weakness EENTM: No hearing loss, No blurred vision Respiratory: No cough, No dyspnea on exertion Cardiovascular: No chest pain Gastrointestinal: No abdominal pain, No diarrhea, No nausea, No vomiting Genitourinary: No decreased output, No discharge Musculoskeletal: No back pain, No gout Skin: No change in color All Other Systems Reviewed Negative Unless Noted: Yes Past Qxgzsqg-Yansvp-Iuptxd Hx Past Medical History Surgery/Hospitalization HX: HTN, COPD, CAD, REFLUX CARDIAC STENTS, L KNEE Surgeries: Yes Coronary Stent Respiratory: Yes COPD Cardiac: Yes Atrial Fibrillation, High Cholesterol, Hypertension Reproductive Disorders: No Renal Failure Gastrointestinal Bleed Endocrine: Yes Hypothyroidsim Family Medical History No Pertinent Family Hx Physical Exam Vital Signs Vital Signs - First Documented 03/26/23 10:56 Temp 36.6 Pulse 85 Resp 17 B/P (MAP) 105/54 (71) Pulse Ox 98 O2 Delivery Room Air Capillary Refill : Height, Weight, BMI Height: '" Weight: lbs. oz. kg; 24.00 BMI Method: General Appearance: No Apparent Distress, WD/WN Eyes: Bilateral Eye Normal Inspection, Bilateral Eye PERRL, Bilateral Eye EOMI HEENT: PERRL/EOMI, TMs Normal, Normal ENT Inspection, Pharynx Normal Neck: Full Range of Motion, Normal Inspection, Non Tender, Supple Respiratory: Chest Non Tender, Lungs Clear, Normal Breath Sounds, No Accessory Muscle Use Cardiovascular: Regular Rate, Rhythm, No Edema, No Gallop, No JVD Gastrointestinal: Normal Bowel Sounds, No Organomegaly, No Pulsatile Mass, Non Tender Back: Normal Inspection, No CVA Tenderness, No Vertebral Tenderness Extremity: Normal Capillary Refill, Normal Inspection, Normal Range of Motion, Non Tender Neurologic/Psychiatric: Alert, Oriented x3, No Motor/Sensory Deficits, Normal Mood/Affect Skin: Normal Color, Warm/Dry Progress/Results/Core Measures Suspected Sepsis SIRS Temperature: Pulse: Respiratory Rate: Laboratory Tests 03/26/23 11:05: White Blood Count 8.0 Blood Pressure / Mean: Laboratory Tests 03/26/23 11:05: Creatinine 1.14, INR Comment 1.6H, Platelet Count 380, Total Bilirubin 0.4 Results/Orders Lab Results Laboratory Tests Test 03/26/23 11:05 03/26/23 12:11 Range/Units White Blood Count 8.0 4.3-11.0 10^3/uL Red Blood Count 2.61 L 4.30-5.52 10^6/uL Hemoglobin 7.8 L 13.3-17.7 g/dL Hematocrit 25 L 40-54 % Mean Corpuscular Volume 95 80-99 fL Mean Corpuscular Hemoglobin 30 25-34 pg Mean Corpuscular Hemoglobin Concent 31 L 32-36 g/dL Red Cell Distribution Width 17.2 H 10.0-14.5 % Platelet Count 380 130-400 10^3/uL Mean Platelet Volume 10.5 9.0-12.2 fL Immature Granulocyte % (Auto) 0 % Neutrophils (%) (Auto) 76 H 42-75 % Lymphocytes (%) (Auto) 12 12-44 % Monocytes (%) (Auto) 9 0-12 % Eosinophils (%) (Auto) 3 0-10 % Basophils (%) (Auto) 0 0-10 % Neutrophils # (Auto) 6.1 1.8-7.8 10^3/uL Lymphocytes # (Auto) 1.0 1.0-4.0 10^3/uL Monocytes # (Auto) 0.7 0.0-1.0 10^3/uL Eosinophils # (Auto) 0.2 0.0-0.3 10^3/uL Basophils # (Auto) 0.0 0.0-0.1 10^3/uL Immature Granulocyte # (Auto) 0.0 0.0-0.1 10^3/uL Prothrombin Time 19.5 H 12.2-14.7 SEC INR Comment 1.6 H 0.8-1.4 Activated Partial Thromboplast Time 40 H 24-35 SEC Sodium Level 141 135-145 MMOL/L Potassium Level 3.4 L 3.6-5.0 MMOL/L Chloride Level 106 98-107 MMOL/L Carbon Dioxide Level 26 21-32 MMOL/L Anion Gap 9 5-14 MMOL/L Blood Urea Nitrogen 23 H 7-18 MG/DL Creatinine 1.14 0.60-1.30 MG/DL Estimat Glomerular Filtration Rate 65 BUN/Creatinine Ratio 20 Glucose Level 107 H 70-105 MG/DL Calcium Level 8.7 8.5-10.1 MG/DL Corrected Calcium 9.3 8.5-10.1 MG/DL Total Bilirubin 0.4 0.1-1.0 MG/DL Aspartate Amino Transf (AST/SGOT) 40 H 5-34 U/L Alanine Aminotransferase (ALT/SGPT) 20 0-55 U/L Alkaline Phosphatase 94 40-136 U/L Total Protein 6.1 L 6.4-8.2 GM/DL Albumin 3.3 3.2-4.5 GM/DL Urine Color YELLOW Urine Clarity CLEAR Urine pH 6.0 5-9 Urine Specific [place] 1.010 L 1.016-1.022 Urine Protein NEGATIVE NEGATIVE Urine Glucose (UA) NEGATIVE NEGATIVE Urine Ketones NEGATIVE NEGATIVE Urine Nitrite POSITIVE H NEGATIVE Urine Bilirubin NEGATIVE NEGATIVE Urine Urobilinogen 0.2 < = 1.0 MG/DL Urine Leukocyte Esterase NEGATIVE NEGATIVE Urine RBC (Auto) NEGATIVE NEGATIVE Urine RBC NONE /HPF Urine WBC RARE /HPF Urine Squamous Epithelial Cells RARE /HPF Urine Crystals NONE /LPF Urine Bacteria LARGE H /HPF Urine Casts NONE /LPF Urine Mucus NEGATIVE /LPF Urine Culture Indicated YES My Orders Orders - DON DESIR Cbc With Automated Diff (03/26/23 11:09) Comprehensive Metabolic Panel (03/26/23 11:09) Partial Thromboplastin Time (03/26/23 11:09) Protime With Inr (03/26/23 11:09) Type And Screen (03/26/23 11:09) Ua Culture If Indicated (03/26/23 11:09) Chest 1 View, Ap/Pa Only (03/26/23 11:09) Iv/Invasive Line Insertion .IV INSERT (03/26/23 11:09) Ekg Tracing (03/26/23 11:12) Urine Culture (03/26/23 12:11) Vital Signs/I&O 03/26/23 03/26/23 10:56 12:56 Temp 36.6 36.6 Pulse 85 66 Resp 17 17 B/P (MAP) 105/54 (71) 113/56 Pulse Ox 98 100 O2 Delivery Room Air Room Air Capillary Refill : ECG Comment Sinus rhythm, low QRS voltage, 60 bpm, QRS duration 100 MS, QTc 440 MS. Departure Communication (PCP) Reviewed previous ER visits, H&P, lab testing. History of chronic anemia. Mandie ent Was seen at [facility] last July had a double balloon endoscopy positive for nonbleeding AVMs.. Has seen Dr. Teague last year around October 2021 for upper EGD which was positive for reflux esophagitis, moderate size hiatal hernia, gastritis with a healed antral ulcer and with no active bleeding, hemorrhoids. Patient is currently on iron supplements. Currently on Eliquis w aiting for a Watchman procedure performed by Dr. YODER at [place]. CBC, CMP, coags, Hemoccult test was performed. Hemoccult testing negative. He has no abdominal pain, tenderness suggesting imaging at this time. Generalized weakness and fatigue over the past 3 to 4 days. This appears to be more chronic after reviewing previous visits. . CBC hemoglobin is 7.8. Stable from 2 days ago. Normal platelets and white blood count. Chemistry was grossly unremarkable. INR 1.6. Slight elevated coags. Likely due to anticoagulant. Patient urine was positive for nitrites. Denies of any specific urinary symptoms or cough. due to the weakness chest x-ray was ordered and EKG. EKG showed sinus rhythm with low QRS voltage. No evidence of ST elevation or depression. Chest x-ray questionable infiltrate right lung base. Denies of any cough. Will discharge cefdinir secondary to potential pneumonia versus UTI which could be result of the weakness. More likely to his chronic anemia. recommend follow-up your PCP for recheck of your hemoglobin the next 2 to 3 days. He is currently on iron supplement which I recommend. May require infusion in the future.. No infusion at this time as patient hemoglobin is greater than 7. Return precaution were discussed. Family agrees with plan of action. Follow-up with PCP in 2 days for recheck. Impression Primary Impression: Chronic anemia Additional Impression: UTI (urinary tract infection) Disposition: 01 HOME, SELF-CARE Condition: Stable Departure-Patient Inst. Decision time for Depature: 12:43 Referrals: GRIS RAYMUNDO MD (PCP/Family) Primary Care Physician Patient Instructions: Urinary Tract Infection, Adult (DC) Add. Discharge Instructions: Recommend following up with your primary care physician for the anemia and recheck of lab work. Cefdinir for potential pneumonia versus UTI Scripts Cefdinir (Cefdinir) 300 Mg Capsule 300 MG PO BID for 7 Days, #14 CAP Prov: DON DESIR 03/26/23 DON DESIR Mar 26, 2023 11:17
[2023-03-26 11:26] LABS: INR 1.6 (0.8-1.4); PROTHROMBIN TIME PATIENT 19.5 SEC (12.2-14.7)
[2023-03-26 11:27] LABS: ALBUMIN 3.3 GM/DL (3.2-4.5); POTASSIUM 3.4 MMOL/L (3.6-5.0)
[2023-03-26 11:28] LABS: CALCIUM 8.7 MG/DL (8.5-10.1)
[2023-03-26 11:30] LABS: TOTAL PROTEIN 6.1 GM/DL (6.4-8.2)
[2023-03-26 11:33] LABS: CREATININE SERUM 1.14 MG/DL (0.60-1.30)
[2023-03-26 12:00] LABS: BILIRUBIN,TOTAL 0.4 MG/DL (0.1-1.0)
--- NOTE | 2023-03-26 12:04 | Diagnostic Imaging Report ---
INDICATION: Shortness of breath. Frontal chest obtained at 11:48 a.m. FINDINGS: Heart and mediastinal silhouette are normal in appearance. There is a probable hiatal hernia. There is some minimal infiltrate in the right base. Lungs are otherwise clear. There is no pneumothorax or pleural fluid. IMPRESSION: Minimal infiltrate in the right lung base, pneumonia not excluded. Incidental hiatal hernia. Dictated by: Dictated on workstation # [id number]
[2023-03-26 12:21] LABS: BILIRUBIN,URINE NEGATIVE (NEGATIVE); CLARITY,URINE CLEAR; COLOR,URINE YELLOW; GLUCOSE, URINE (UA) NEGATIVE (NEGATIVE); KETONES,URINE NEGATIVE (NEGATIVE); LEUKOCYTE ESTERASE ,URINE NEGATIVE (NEGATIVE); NITRITE,URINE POSITIVE (NEGATIVE); PROTEIN,URINE NEGATIVE (NEGATIVE)
[2023-03-26 12:33] LABS: BACTERIA,URINE LARGE /HPF; SQUAMOUS EPITHELIAL CELL,UR RARE /HPF; WBC,URINE RARE /HPF
[2023-03-26] MEDS ORDERED: CEFD300C3 PO (12:44)
[2023-03-26 12:56] VITALS: BP 113/56
== END 2023-03-26 12:58 | disposition home or self-care (01) ==
LOC: EDUNIT# 10:39 → ER 10:41
DX: D64.9 Anemia, unspecified (principal); N39.0 Urinary tract infection, site not specified; Z79.01 Long term (current) use of anticoagulants; Z88.0 Allergy status to penicillin
CPT/HCPCS: 36415; 71045; 80053; 81000; 82274; 85025; 85610; 85730; 86850; 86900; 86901; 87077; 87088; 93005